=== PATIENT | male | born 1950 | race Caucasian/White ===

== ENCOUNTER 2016-08-24 18:21 | Inpatient (IN) | payer MEDICARE, BC, OTHER ==
[2016-08-24] MEDS ORDERED: HYDROmorphone 1 MG/ML 1 ML SYRINGE IVP STA ×2 (18:39→20:19)
[2016-08-24] MEDS ORDERED: DIPH,PERTUS(ACELL)TETVAC-LF 0.5 ML VIAL IM ONE (18:39)
[2016-08-24] MEDS ORDERED: RX INFO: IV CONTRAST WAS GIVEN 1 EACH MISC MISCELLANE PRN (18:39)
[2016-08-24] MEDS ORDERED: ONDANSETRON 4 MG/2 ML VIAL IVP STA (18:39)
[2016-08-24] MEDS ORDERED: SODIUM CHLORIDE 0.9% 500 ML IV STA (18:39)
--- NOTE | 2016-08-24 18:41 | ED ---
General Adult HPI - General Source: patient, RN notes reviewed Mode of arrival: wheelchair Limitations: no limitations <Linus Banks - Last Filed: 08/24/16 18:54> <Braxton Love - Last Filed: 08/24/16 19:58> - General Chief complaint: Trauma Stated complaint: patient bucked off horse and stepped on back leg Time Seen by Provider: 08/24/16 18:25 - History of Present Illness Initial comments: This is a 66-year-old male who presents emergency Department complaining of upper right back pain. Patient states he was thrown off his horse and stepped on by the horse in the right upper back. Patient states hurts to breathe but is not short of breath. Patient denies hitting his head or hurting his neck. Patient denies headache patient denies numbness weakness. Patient states she has full range of motion of his neck. Patient denies any chest pain. Patient denies abdominal pain patient denies nausea or vomiting. Patient states move all 4 extremities with full range of motion. Patient does state he has an abrasion to the back of his right leg however he is not sure how that got there. Patient denies having a tetanus recently. (Linus Banks) - Related Data Home Medications Medication Instructions Recorded Confirmed Aspirin 81 mg PO DAILY 08/24/16 08/24/16 Bisoprolol-Hctz 5-6.25 mg [Ziac 1 tab PO DAILY 08/24/16 08/24/16 5-6.25] [place]-3 Acid Ethyl Esters [Lovaza] 2 gm PO BID 08/24/16 08/24/16 Omeprazole 40 mg PO DAILY 08/24/16 08/24/16 Simvastatin [Zocor] 40 mg PO DAILY 08/24/16 08/24/16 Ubidecarenone [Co Q-10] 100 mg PO DAILY 08/24/16 08/24/16 amLODIPine BESYLATE/BENAZEPRIL 1 cap PO DAILY 08/24/16 08/24/16 [amLODIPine BESYLATE/BENAZEPRIL 10-20 mg] Allergies Allergy/AdvReac Type Severity Reaction Status Date / Time No Known Allergies Allergy Verified 08/24/16 19:40 Review of Systems ROS Other: All systems not noted in ROS Statement are negative. <Linus Banks - Last Filed: 08/24/16 18:54> ROS Other: All systems not noted in ROS Statement are negative. <Braxton Love - Last Filed: 08/24/16 19:58> ROS Statement: Those systems with pertinent positive or pertinent negative responses have been documented in the HPI. Past Medical History Past Medical History: GERD/Reflux, Hyperlipidemia, Hypertension History of Any Multi-Drug Resistant Organisms: None Reported Past Surgical History: No Surgical Hx Reported Past Psychological History: No Psychological Hx Reported Smoking Status: Current every day smoker Past Alcohol Use History: None Reported Past Drug Use History: None Reported <Linus Banks - Last Filed: 08/24/16 18:54> General Exam Limitations: no limitations <Linus Banks - Last Filed: 08/24/16 18:54> <Braxton Love - Last Filed: 08/24/16 19:58> - General Exam Comments Initial Comments: GENERAL: Patient is well-developed and well-nourished. Patient is nontoxic and well- hydrated and is in moderate distress. ENT: Neck is soft and supple. No significant lymphadenopathy is noted. Oropharynx is clear. Moist mucous membranes. Neck has full range of motion without eliciting any pain. EYES: The sclera were anicteric and conjunctiva were pink and moist. Extraocular movements were intact and pupils were equal round and reactive to light. Eyelids were unremarkable. PULMONARY: Unlabored respirations. Good breath sounds bilaterally. No audible rales rhonchi or wheezing was noted. CARDIOVASCULAR: There is a regular rate and rhythm without any murmurs gallops or rubs. ABDOMEN: Soft and nontender with normal bowel sounds. No palpable organomegaly was noted. There is no palpable pulsatile mass. SKIN: Patient has about an 8 cm x 2 cm long superficial abrasion to the posterior aspect of the right thigh. NEUROLOGIC: Patient is alert and oriented x3. Cranial nerves II through XII are grossly intact. Motor and sensory are also intact. Normal speech, volume and content. Symmetrical smile. MUSCULOSKELETAL: Normal extremities with adequate strength and full range of motion. No lower extremity swelling or edema. No calf tenderness. Patient does have some swelling and tenderness over the right scapula LYMPHATICS: No significant lymphadenopathy is noted PSYCHIATRIC: Normal psychiatric evaluation. (Linus Banks) Course <Linus Banks - Last Filed: 08/24/16 18:54> <Braxton Love - Last Filed: 08/24/16 19:58> Vital Signs 08/24/16 18:23 Temperature 96.8 F L Pulse Rate 82 Respiratory 24 Rate Blood Pressure 138/64 O2 Sat by Pulse 98 Oximetry - Reevaluation(s) Reevaluation #1: 08/24/16 19:56 I did reevaluate the patient after his return from imaging. Patient does demonstrate fractures of the ribs and right ribs 6 through 9. Evidence of pulmonary emphysema a small right pleural effusion or pleural thickening. No other acute findings. I did discuss case with the patient family Dr. Ayon did come the emergency department and examined the patient patient will be admitted for pain control and evaluation. Additionally Dr. Nichols has been notified as well as anesthesiology consulted for pain control. (Braxton Love) Medical Decision Making <Linus Banks - Last Filed: 08/24/16 18:54> - Lab Data Result diagrams: 08/24/16 18:44 08/24/16 18:44 <Braxton Love - Last Filed: 08/24/16 19:58> - Medical Decision Making EKG shows a sinus rhythm with a PAC at a rate of 77 bpm AL interval is 182 QRS is 78 QT interval is 392 QTC is 443. Patient's EKG shows no ST segment elevation or depression or T-wave abdomen is noted. Dr. Love will be taking over the care of this patient at 7 PM (Linus Banks) - Lab Data Lab Results 08/24/16 08/24/16 08/24/16 Range/Units 18:44 18:44 18:44 WBC 15.6 H (3.8-10.6) k/uL RBC 5.44 (4.30-5.90) m/uL Hgb 16.8 (13.0-17.5) gm/dL Hct 50.5 (39.0-53.0) % MCV 92.8 (80.0-100.0) fL MCH 30.9 (25.0-35.0) pg MCHC 33.3 (31.0-37.0) g/dL RDW 13.3 (11.5-15.5) % Plt Count 169 (150-450) k/uL Neutrophils % 86 % Lymphocytes % 8 % Monocytes % 4 % Eosinophils % 1 % Basophils % 0 % Neutrophils # 13.4 H (1.3-7.7) k/uL Lymphocytes # 1.2 (1.0-4.8) k/uL Monocytes # 0.6 (0-1.0) k/uL Eosinophils # 0.2 (0-0.7) k/uL Basophils # 0.0 (0-0.2) k/uL PT (9.0-12.0) sec INR (<1.1) APTT (22.0-30.0) sec Sodium 143 (137-145) mmol/L Potassium 4.7 (3.5-5.1) mmol/L Chloride 105 (98-107) mmol/L Carbon Dioxide 25 (22-30) mmol/L Anion Gap 13 mmol/L BUN 18 (9-20) mg/dL Creatinine 0.92 (0.66-1.25) mg/dL Est GFR (MDRD) Af Amer >60 (>60 ml/min/1.73 sqM) Est GFR (MDRD) Non-Af >60 (>60 ml/min/1.73 sqM) Glucose 107 H (74-99) mg/dL Calcium 9.8 (8.4-10.2) mg/dL Total Bilirubin 0.7 (0.2-1.3) mg/dL AST 60 H (17-59) U/L ALT 66 (21-72) U/L Alkaline Phosphatase 80 (38-126) U/L Total Creatine Kinase (55-170) U/L CK-MB (CK-2) (0.0-2.4) ng/mL CK-MB (CK-2) Rel Index Troponin I (0.000-0.034) ng/mL Total Protein 7.7 (6.3-8.2) g/dL Albumin 4.5 (3.5-5.0) g/dL Amylase 52 (30-110) U/L Lipase 62 (23-300) U/L Serum Alcohol <10 mg/dL Blood Type O Positive Blood Type Recheck No Antibody Screen NEGATIVE Spec Expiration Date 08/27/2016 - 234308/24/16 08/24/16 Range/Units 18:44 18:44 WBC (3.8-10.6) k/uL RBC (4.30-5.90) m/uL Hgb (13.0-17.5) gm/dL Hct (39.0-53.0) % MCV (80.0-100.0) fL MCH (25.0-35.0) pg MCHC (31.0-37.0) g/dL RDW (11.5-15.5) % Plt Count (150-450) k/uL Neutrophils % % Lymphocytes % % Monocytes % % Eosinophils % % Basophils % % Neutrophils # (1.3-7.7) k/uL Lymphocytes # (1.0-4.8) k/uL Monocytes # (0-1.0) k/uL Eosinophils # (0-0.7) k/uL Basophils # (0-0.2) k/uL PT 10.7 (9.0-12.0) sec INR 1.1 (<1.1) APTT 23.0 (22.0-30.0) sec Sodium (137-145) mmol/L Potassium (3.5-5.1) mmol/L Chloride (98-107) mmol/L Carbon Dioxide (22-30) mmol/L Anion Gap mmol/L BUN (9-20) mg/dL Creatinine (0.66-1.25) mg/dL Est GFR (MDRD) Af Amer (>60 ml/min/1.73 sqM) Est GFR (MDRD) Non-Af (>60 ml/min/1.73 sqM) Glucose (74-99) mg/dL Calcium (8.4-10.2) mg/dL Total Bilirubin (0.2-1.3) mg/dL AST (17-59) U/L ALT (21-72) U/L Alkaline Phosphatase (38-126) U/L Total Creatine Kinase 230 H (55-170) U/L CK-MB (CK-2) 5.7 H* (0.0-2.4) ng/mL CK-MB (CK-2) Rel Index 2.5 Troponin I <0.012 (0.000-0.034) ng/mL Total Protein (6.3-8.2) g/dL Albumin (3.5-5.0) g/dL Amylase (30-110) U/L Lipase (23-300) U/L Serum Alcohol mg/dL Blood Type Blood Type Recheck Antibody Screen Spec Expiration Date Disposition <Linus Banks - Last Filed: 08/24/16 18:54> <Braxton Love - Last Filed: 08/24/16 19:58> Clinical Impression: Chest wall trauma, Multiple rib fractures Disposition: ADMITTED IP TO THIS HOSP Condition: Stable
--- NOTE | 2016-08-24 18:58 | XR ---
EXAMINATION TYPE: XR pelvis AP view DATE OF EXAM: 08/24/2016 6:52 PM COMPARISON: NONE HISTORY: Bucked off a horse. Pain. TECHNIQUE: Single view FINDINGS: The pelvic ring is intact. Proximal femurs and hip joints are intact. Sacroiliac joints evangelina ear normal. IMPRESSION: Negative pelvis exam.
--- NOTE | 2016-08-24 19:00 | XR ---
EXAMINATION TYPE: XR chest 1V portable DATE OF EXAM: 08/24/2016 6:52 PM COMPARISON: NONE HISTORY: Bucked off a horse TECHNIQUE: Single frontal view of the chest is obtained. FINDINGS: Heart is normal. Lungs are clear. There is no sign of pleural effusion or pneumothorax. I see no rib fracture. There is atheromatous change in the thoracic aorta. There are no hilar masses. IMPRESSION: No active cardiopulmonary disease.
[2016-08-24 19:01] LABS: Basophils % (A) 0 %; CH 31.4; Eosinophils # (A) 0.2 k/uL (0-0.7); Eosinophils % (A) 1 %; HCT 50.5 % (39.0-53.0); HDW 2.52; HGB 16.8 gm/dL (13.0-17.5); Luc # (Auto) 0.18; Luc % (Auto) 1; Lymphocytes # (A) 1.2 k/uL (1.0-4.8); Lymphocytes % (A) 8 %; MCH 30.9 pg (25.0-35.0); MCHC 33.3 g/dL (31.0-37.0); MCV 92.8 fL (80.0-100.0); Mean Platelet Volume 8.2; Monocytes # (A) 0.6 k/uL (0-1.0); Monocytes % (A) 4 %; Neutrophils # (A) 13.4 k/uL (1.3-7.7); Neutrophils % (A) 86 %; RBC 5.44 m/uL (4.30-5.90); RDW 13.3 % (11.5-15.5); WBC 15.6 k/uL (3.8-10.6); WBC (Perox) 16.01
[2016-08-24 19:14] LABS: ALT 66 U/L (21-72); AST 60 U/L (17-59); Alcohol <10 mg/dL; Alkaline Phosphatase 80 U/L (38-126); Amylase 52 U/L (30-110); Anion Gap 13 mmol/L; Blood Urea Nitrogen 18 mg/dL (9-20); Calcium 9.8 mg/dL (8.4-10.2); Carbon Dioxide 25 mmol/L (22-30); Chloride 105 mmol/L (98-107); Glucose 107 mg/dL (74-99); Non-African American GFR(MDRD) >60 (>60 ml/min/1.73 sqM); Potassium 4.7 mmol/L (3.5-5.1); Sodium 143 mmol/L (137-145); Total Bilirubin 0.7 mg/dL (0.2-1.3); Total Protein 7.7 g/dL (6.3-8.2)
[2016-08-24 19:18] LABS: Creatine Kinase 230 U/L (55-170)
[2016-08-24 19:31] LABS: Troponin I <0.012 ng/mL (0.000-0.034)
--- NOTE | 2016-08-24 19:31 | CT ---
EXAMINATION TYPE: CT ChestAbdPelvis w con DATE OF EXAM: 08/24/2016 7:14 PM COMPARISON: NONE HISTORY: Pt fell off horse and stepped on by horse. Pain in between shoulder blades and middle back. CT DLP: 786.0 mGycm Automated exposure control for dose reduction was used. CONTRAST: CT scan of the chest, abdomen and pelvis is performed without Oral Contrast and with IV Contrast, pat ient injected with 100 mL of Omnipaque 300. FINDINGS: There is diffuse pulmonary emphysema. There is no pulmonary consolidation. There is a small right ple ural effusion. There is a small hiatal hernia. Heart size is normal. There is coronary artery calcifi cation. There is no sign of a pneumothorax. Liver spleen pancreas appear normal. The bile ducts are not dilated. Gallbladder is contracted. There is no adrenal mass. There are bilateral renal cortical cysts that measure up to 5 cm. There is no hy dronephrosis. There is no retroperitoneal adenopathy. There is some plaque in the lower abdominal aor ta. There are a few sigmoid diverticula. There is minimal stranding around the mid sigmoid colon. [place] endix appears normal. There is no ascites. I see no compression fracture in the thoracic and lumbar s pine. There is a possible 5 mm nonobstructing calculus in the left kidney. There is a thoracolumbar l evoscoliosis. There is a midthoracic dextroscoliosis. The pelvis appears intact. There are nondisplac ed fractures right posterior ribs involving the 6,.7,8 ,and 9. There are fractures of the lateral asp ect of the right fifth sixth and seventh ribs. There is localized subcutaneous emphysema over the rig ht lateral chest wall adjacent to lateral rib fractures. IMPRESSION: Pulmonary emphysema. Small right pleural effusion or pleural thickening. Atherosclerotic vascular disease. Bilateral renal cortical cysts. Nonobstructing left renal calculus. There are changes of minimal sigm oid diverticulitis. There are nondisplaced fractures of the posterior right ribs from 6-9. Mild subcutaneous emphysema. M ultiple lateral rib fractures. Spondylotic changes with scoliotic deformity.
[2016-08-24 19:33] LABS: Creatine Kinase MB 5.7 ng/mL (0.0-2.4)
[2016-08-24 19:45] LABS: INR 1.1 (<1.1); Prothrombin Time 10.7 sec (9.0-12.0)
[2016-08-24] MEDS ORDERED: NALOXONE 0.4 MG/ML 1 ML VIAL IV PRN (19:58)
--- NOTE | 2016-08-24 19:58 | P.GSHP ---
History of Present Illness H&P Date: 08/24/16 Patient is 66-year-old gentleman was on his horse and was thrown off. The patient was then coupled by a horse itself. I was able to walk on the did not have any loss of consciousness no nausea no vomiting. He does have a previous history of constipation. A few weeks ago he did have significant but remained in the left lower quadrant heading down towards the groin which has dissipated. He has chronic constipation. No symptoms his medication melena no history of any neurological deficits recently. He does have a Piment[place] of running on the left leg. Majority of the pain is along the back and the spine and on the right posterior side of the chest. He isn't complaining of any central chest pain in the front. No history of palpitations. No history of urinary complaints at this time. No hematuria. - Constitutional Constitutional: Reports chronic pain, Denies night sweats, Denies poor appetite , Denies sweats - EENT Eyes: denies blurred vision, denies pain Ears, nose, mouth and throat: Denies headache, Denies sore throat - Cardiovascular Cardiovascular: Reports chest pain, Denies claudication, Denies shortness of breath - Respiratory Respiratory: Reports dyspnea, Reports pain on inspiration, Denies cough, Denies excessive sputum, Denies hemoptysis - Gastrointestinal Comment: Patient had pain and left lower quadrant about a week ago Gastrointestinal: Reports abdominal pain, Denies diarrhea, Denies nausea, Denies vomiting - Genitourinary (Male) Genitourinary: Denies dysuria, Denies hematuria - Musculoskeletal Comment: She she had with pain running on the left leg Musculoskeletal: Denies myalgias - Integumentary Comment: Abrasion of left leg Integumentary: Denies pruritus, Denies rash - Neurological Neurological: Denies numbness, Denies weakness - Psychiatric Psychiatric: Denies anxiety, Denies depression - Endocrine Endocrine: Denies fatigue, Denies weight change Past Medical History Past Medical History: GERD/Reflux, Hyperlipidemia, Hypertension History of Any Multi-Drug Resistant Organisms: None Reported Past Surgical History: No Surgical Hx Reported Past Psychological History: No Psychological Hx Reported Smoking Status: Current every day smoker Past Alcohol Use History: None Reported Past Drug Use History: None Reported Medications and Allergies Home Medications Medication Instructions Recorded Confirmed Type Aspirin 81 mg PO DAILY 08/24/16 08/24/16 History Bisoprolol-Hctz 5-6.25 mg [Ziac 1 tab PO DAILY 08/24/16 08/24/16 History 5-6.25] [place]-3 Acid Ethyl Esters [Lovaza] 2 gm PO BID 08/24/16 08/24/16 History Omeprazole 40 mg PO DAILY 08/24/16 08/24/16 History Simvastatin [Zocor] 40 mg PO DAILY 08/24/16 08/24/16 History Ubidecarenone [Co Q-10] 100 mg PO DAILY 08/24/16 08/24/16 History amLODIPine BESYLATE/BENAZEPRIL 1 cap PO DAILY 08/24/16 08/24/16 History [amLODIPine BESYLATE/BENAZEPRIL 10-20 mg] Allergies Allergy/AdvReac Type Severity Reaction Status Date / Time No Known Allergies Allergy Verified 08/24/16 19:40 Surgical - Exam Vital Signs Temp Pulse Resp BP Pulse Ox 96.8 F L 82 24 138/64 98 08/24/16 18:23 08/24/16 18:23 08/24/16 18:23 08/24/16 18:23 08/24/16 18:23 - General well developed, moderate distress, moderate pain - Eyes pale - Respiratory having difficulty with breathing, reduced effort and excursion Moderate tenderness right posterior chest and back - Cardiovascular Rhythm: regular - Abdomen Abdomen: soft, non tender, no surgical scars, no wound, no masses, no guarding, no rigid, no rebound, no distended Hernia: none - Integumentary left medial knee has a small abrasion 3 cm across - Neurologic h/o sciatica , left sided no disoriented, no combative - Psychiatric oriented to time, oriented to person, oriented to place, speech is normal, memory intact Results - Labs 08/24/16 18:44 08/24/16 18:44 Abnormal Lab Results - Last 24 Hours (Table) 08/24/16 08/24/16 08/24/16 Range/Units 18:44 18:44 18:44 WBC 15.6 H (3.8-10.6) k/uL Neutrophils # 13.4 H (1.3-7.7) k/uL Glucose 107 H (74-99) mg/dL AST 60 H (17-59) U/L Total Creatine Kinase 230 H (55-170) U/L CK-MB (CK-2) 5.7 H* (0.0-2.4) ng/mL Diabetes panel 08/24/16 Range/Units 18:44 Sodium 143 (137-145) mmol/L Potassium 4.7 (3.5-5.1) mmol/L Chloride 105 (98-107) mmol/L Carbon Dioxide 25 (22-30) mmol/L BUN 18 (9-20) mg/dL Creatinine 0.92 (0.66-1.25) mg/dL Glucose 107 H (74-99) mg/dL Calcium 9.8 (8.4-10.2) mg/dL AST 60 H (17-59) U/L ALT 66 (21-72) U/L Alkaline Phosphatase 80 (38-126) U/L Total Protein 7.7 (6.3-8.2) g/dL Albumin 4.5 (3.5-5.0) g/dL Calcium panel 08/24/16 Range/Units 18:44 Calcium 9.8 (8.4-10.2) mg/dL Albumin 4.5 (3.5-5.0) g/dL Pituitary panel 08/24/16 Range/Units 18:44 Sodium 143 (137-145) mmol/L Potassium 4.7 (3.5-5.1) mmol/L Chloride 105 (98-107) mmol/L Carbon Dioxide 25 (22-30) mmol/L BUN 18 (9-20) mg/dL Creatinine 0.92 (0.66-1.25) mg/dL Glucose 107 H (74-99) mg/dL Calcium 9.8 (8.4-10.2) mg/dL Adrenal panel 08/24/16 Range/Units 18:44 Sodium 143 (137-145) mmol/L Potassium 4.7 (3.5-5.1) mmol/L Chloride 105 (98-107) mmol/L Carbon Dioxide 25 (22-30) mmol/L BUN 18 (9-20) mg/dL Creatinine 0.92 (0.66-1.25) mg/dL Glucose 107 H (74-99) mg/dL Calcium 9.8 (8.4-10.2) mg/dL Total Bilirubin 0.7 (0.2-1.3) mg/dL AST 60 H (17-59) U/L ALT 66 (21-72) U/L Alkaline Phosphatase 80 (38-126) U/L Total Protein 7.7 (6.3-8.2) g/dL Albumin 4.5 (3.5-5.0) g/dL - Imaging CT scan - abdomen: report reviewed, image reviewed CT scan - chest: report reviewed (Multiple rib fractures), image reviewed Assessment and Plan (1) Tobacco dependence Status: Acute (2) Ribs, multiple fractures Status: Acute (3) Diverticulitis large intestine w/o perforation or abscess w/o bleeding Status: Acute (4) Atherosclerosis of abdominal aorta Status: Acute Plan: Patient has significant amount of pain due to the rib fractures. Is having difficulty breathing at this time. On this nausea and vomiting. A computed tomography scan of the chest did not reveal any pneumothorax. He does however have multiple rib fractures. I've consulted anesthesia and placement of an epidural for pain control. I will also consult pulmonology due to his significant emphysema issues. The patient has significant atherosclerotic issues involving the descending aorta. He does not have any current symptoms but have had a detailed discussion with him to quit that because that may be contributing to his progressive atherosclerotic changes in his aorta. The patient also is a history of having left lower quadrant pain approximately a week ago. He has a chronic history of constipation as well. He's had previous [address] Olivia which would been unremarkable in terms of polyps. He however has significant amounts sigmoid diverticulosis. Due to the fact that he had that pain his white count is elevated and the current CT has been read as diverticulitis I will place him on Unasyn 3 g IV twice a day for that. The patient may follow up with his usual surgeon was discharged from this current trauma admission. The patient's current condition was discussed with Dr. Nichols will be seeing the patient in the morning for medical menagement Time with Patient: Greater than 30
--- NOTE | 2016-08-24 20:23 | P.PCN ---
Date of Procedure: 08/24/16 Procedure(s) Performed: Procedure= thoracic epidural catheter placement . Preoperative diagnosis= chest wall pain secondary to multiple rib fractures. Postoperative diagnoses= same as preop diagnosis. Condition= stable. Complications= none. Anesthesia= Dilaudid 1 mg IV and local lidocaine 1% 3 mL. Description of the procedure= this is 66 years old male, came to the emergency room at [facility] and he was diagnosed with multiple rib fractures right-sided T5 to T9, patient was complaining of severe chest wall pain, and the trauma surgeon recommended thoracic epidural catheter placement for pain control, and I discussed this option with the patient and his and they agreed with the procedure, risks and benefits and alternatives discussed with the patient and he signed the consent, patient sitting position the back prepped with Betadine 3, sterile technique, at T6 7 level interlaminar space, local infiltration of the skin and subcu interstitial, lidocaine 1% 3 mL, then 18-gauge Touhy needle, advanced slowly under was positive loss of resistance to saline, no heme and no CSF, and no paresthesia, was threaded easily, and taped at 10 cm, the test dose was negative, for any change in heart rate, and patient had no motor deficits after the test does,, then the catheter secured at 10 cm, and patient will be started on continuous infusion of fentanyl and bupivacaine
[2016-08-24] MEDS ORDERED: AMPICILLIN-SULBACTAM 3 GM in SODIUM CHLORIDE 0.9% 100 ML IVPB SCH (20:45)
[2016-08-24 21:12] VITALS: BMI 28.1
[2016-08-24] MEDS: SODIUM CHLORIDE 0.9% 1,000 ML IV SCH (21:29)
[2016-08-24] MEDS: AMPICILLIN-SULBACTAM 3 GM in SODIUM CHLORIDE 0.9% 100 ML IVPB SCH (21:30)
[2016-08-24 22:02] LABS: Appearance,Urine Clear (Clear); Bilirubin,Urine Negative (Negative); Glucose,Urine (UA) Negative (Negative); Ketones,Urine Negative (Negative); Leukocyte Esterase,Urine Negative (Negative); Mucus,Urine Occasional /hpf; Nitrite,Urine Negative (Negative); PH, Urine 6.5 (5.0-8.0); Particle Count 2110; Protein,Urine 1+ (Negative); RBC,Urine 3 /hpf (0-5); UA Billing (MACRO vs. MICRO) MICRO; WBC,Urine <1 /hpf (0-5)
[2016-08-24 22:11] LABS: Specific Gravity,Urine >1.050 (1.001-1.035)
[2016-08-24] MEDS: BUPIVACAINE (PF) 0.5% 31.3 ML, fentaNYL (PF) 625 MCG in SODIUM CHLORIDE 0.9% 206 ML EPIDURAL PRN (22:25)
[2016-08-25 06:52] LABS: Basophils % (A) 0 %; CH 31.2; Eosinophils # (A) 0.2 k/uL (0-0.7); Eosinophils % (A) 2 %; HCT 42.5 % (39.0-53.0); HDW 2.46; Luc # (Auto) 0.23; Luc % (Auto) 2; Lymphocytes # (A) 1.6 k/uL (1.0-4.8); Lymphocytes % (A) 15 %; MCH 30.7 pg (25.0-35.0); MCHC 32.4 g/dL (31.0-37.0); MCV 94.9 fL (80.0-100.0); Mean Platelet Volume 8.6; Monocytes # (A) 0.6 k/uL (0-1.0); Monocytes % (A) 6 %; Neutrophils % (A) 75 %; RBC 4.49 m/uL (4.30-5.90); RDW 13.4 % (11.5-15.5); WBC 10.6 k/uL (3.8-10.6); WBC (Perox) 11.35
[2016-08-25 06:59] LABS: HGB 13.8 gm/dL (13.0-17.5)
[2016-08-25 07:09] LABS: ALT 56 U/L (21-72); AST 42 U/L (17-59); Alkaline Phosphatase 61 U/L (38-126); Anion Gap 11 mmol/L; Blood Urea Nitrogen 17 mg/dL (9-20); Calcium 8.9 mg/dL (8.4-10.2); Carbon Dioxide 26 mmol/L (22-30); Chloride 105 mmol/L (98-107); Glucose 102 mg/dL (74-99); Non-African American GFR(MDRD) >60 (>60 ml/min/1.73 sqM); Potassium 4.2 mmol/L (3.5-5.1); Sodium 142 mmol/L (137-145); Total Bilirubin 0.8 mg/dL (0.2-1.3); Total Protein 6.4 g/dL (6.3-8.2)
[2016-08-25] MEDS: AMPICILLIN-SULBACTAM 3 GM in SODIUM CHLORIDE 0.9% 100 ML IVPB SCH (07:34)
--- NOTE | 2016-08-25 07:59 | XR ---
EXAMINATION TYPE: XR chest 1V DATE OF EXAM: 08/25/2016 7:18 AM HISTORY: Shortness of breath. COMPARISON: August 24, 2016 TECHNIQUE: Single view of the chest is submitted. FINDINGS: Demonstrated are scattered senescent parenchymal change. There is right lower lobe infiltrate. Correlate for pneumonia. The heart is stable. Hilar and mediastinal structures are within normal limits. Degenerative changes are seen of the dorsal spine. IMPRESSION: 1. There is right lower lobe infiltrate. Correlate for pneumonia.
--- NOTE | 2016-08-25 11:27 | P.PN ---
Subjective Principal diagnosis: Trauma with multiple rib fractures Patient is a 66-year-old male with multiple rib fractures from a horse trampling. Continues to have significant amount of pain he is using incentive spirometer only to about 101,000 the target for him would be around 2500. His been evaluated by physical therapy and occupational therapy. He has no complaints no nausea no vomiting is urinated twice.. He complains that on taking deep breaths and coughing a significant amount of pain. He's not had a bowel movement yet. Objective - Vital Signs Vital signs: Vital Signs Temp 97.6 F 08/25/16 07:00 Pulse 91 08/25/16 07:00 Resp 20 08/25/16 07:00 BP 103/66 08/25/16 07:00 Pulse Ox 94 L 08/25/16 07:40 Intake & Output 08/24/16 08/25/16 08/25/16 18:59 06:59 18:59 Intake Total 118.7 480 Output Total 450 Balance -331.3 480 Weight 83.915 kg Intake: IV 100 Ampicillin-Sulbactam 3 gm 100 In Sodium Chloride 0.9% 100 ml @ 100 mls/hr IVPB Q12H [facility] Rx#:[id number] Intake, IV Titration 18.7 Amount Bupivacaine (Pf) 0.5% 31. 18.7 3 ml fentaNYL (PF) 625 mcg In Sodium Chloride 0. 9% 206 ml @ Per Protocol EPIDURAL .Q0M PRN Rx#: [id number] Oral 480 Output: Urine 450 Other: Voiding Method Urinal - Constitutional General appearance: Present: cooperative - EENT Eyes: Present: PERRLA - Respiratory Respiratory: right: diminished, rhonchi - Cardiovascular Rhythm: regular - Gastrointestinal General gastrointestinal: Present: soft - Integumentary Integumentary: Absent: calor, cellulitis, cyanotic - Neurologic Neurologic: Present: CNII-XII intact. Absent: focal deficits - Psychiatric Psychiatric: Present: A&O x's 3, appropriate affect, intact judgment & insight - Allied health notes Allied health notes reviewed: PT - Labs CBC & Chem 7: 08/25/16 06:30 08/25/16 06:30 Labs: Abnormal Lab Results - Last 24 Hours (Table) 08/24/16 08/24/16 08/25/16 Range/Units 21:45 21:45 06:30 Plt Count 136 L (150-450) k/uL Neutrophils # 8.0 H (1.3-7.7) k/uL Glucose (74-99) mg/dL Ur Specific [place] >1.050 H (1.001-1.035) Urine Protein 1+ H (Negative) Urine Mucus Occasional H (None) /hpf Urine Opiates Screen Detected H (NotDetected) 08/25/16 Range/Units 06:30 Plt Count (150-450) k/uL Neutrophils # (1.3-7.7) k/uL Glucose 102 H (74-99) mg/dL Ur Specific [place] (1.001-1.035) Urine Protein (Negative) Urine Mucus (None) /hpf Urine Opiates Screen (NotDetected) - Imaging and Cardiology Chest x-ray: report reviewed, image reviewed Assessment and Plan (1) Tobacco dependence Status: Acute (2) Ribs, multiple fractures Status: Acute (3) Diverticulitis large intestine w/o perforation or abscess w/o bleeding Status: Acute (4) Atherosclerosis of abdominal aorta Status: Acute Plan: The patient is doing adequate breathing at this time I strongly encourage increased using of the incentive spirometer. I will also increase the bupivacaine rate and his epidural so that his pain control is better. I await pulmonology consultation for this patient. Patient will be given appropriate thromboprophylaxis as well. Physical therapy was noted patient is cooperative and ambulating with some pain. We'll continue current management further recommendations to follow.
[2016-08-25] MEDS: AMPICILLIN-SULBACTAM 1.5 GM in SODIUM CHLORIDE 0.9% 50 ML IVPB SCH ×2 (11:42→17:07)
[2016-08-25] MEDS ORDERED: IPRATROPIUM-ALBUTEROL 3 ML NEB INHALATION PRN (12:27)
--- NOTE | 2016-08-25 12:27 | P.CONS ---
History of Present Illness - Reason for Consult Consult date: 08/25/16 Medical management hypertension - Chief Complaint Trampling - History of Present Illness Thaddeus is a 66-year-old white male well-known to me. He has a history of hypertension, hyperlipidemia, and reflux. 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 He was riding his horse at the [employer], when his horse became spooked and bucked him. He was then trampled by the horse several times. He had no loss of consciousness. He is transported to [facility] and admitted to the trauma service, Dr. Ayon duplication specialist. I spoke with Dr. Ayon personally while patient was in the ER. He has no major medical concerns at this time. His major complaint is chest pain. In the emergency room A was found to have multiple rib fractures. There is a laceration consistent with horseshoe to his right thoracic spine. He currently denies any significant shortness of breath. Indicates he is a hard time taking a deep breath due to the pain. He denies any hematochezia melena. He has been seen by pain services and has an incentive spirometer at bedside. Review of Systems All systems: negative Cardiovascular: Reports as per HPI, Reports chest pain Respiratory: Reports cough, Reports pain on inspiration Past Medical History Past Medical History: GERD/Reflux, Hyperlipidemia, Hypertension History of Any Multi-Drug Resistant Organisms: None Reported Past Surgical History: Orthopedic Surgery, Tonsillectomy Additional Past Surgical History / Comment(s): right ankle Past Anesthesia/Blood Transfusion Reactions: No Reported Reaction Past Psychological History: No Psychological Hx Reported Smoking Status: Current every day smoker Past Alcohol Use History: None Reported Past Drug Use History: None Reported - Past Family History Mother Family Medical History: Coronary Artery Disease (CAD) Father Family Medical History: Cancer Medications and Allergies Home Medications Medication Instructions Recorded Confirmed Type Aspirin 81 mg PO DAILY 08/24/16 08/24/16 History Bisoprolol-Hctz 5-6.25 mg [Ziac 1 tab PO DAILY 08/24/16 08/24/16 History 5-6.25] [place]-3 Acid Ethyl Esters [Lovaza] 2 gm PO BID 08/24/16 08/24/16 History Omeprazole 40 mg PO DAILY 08/24/16 08/24/16 History Simvastatin [Zocor] 40 mg PO DAILY 08/24/16 08/24/16 History Ubidecarenone [Co Q-10] 100 mg PO DAILY 08/24/16 08/24/16 History amLODIPine BESYLATE/BENAZEPRIL 1 cap PO DAILY 08/24/16 08/24/16 History [amLODIPine BESYLATE/BENAZEPRIL 10-20 mg] Allergies Allergy/AdvReac Type Severity Reaction Status Date / Time No Known Allergies Allergy Verified 08/24/16 21:49 Physical Exam Vitals: Vital Signs Temp Pulse Pulse Resp BP BP Pulse Ox 08/25/16 07:40 94 L 08/25/16 07:00 97.6 F 91 20 103/66 92 L 08/25/16 04:43 97.6 F 73 16 109/60 94 L 08/25/16 01:04 97.0 F L 70 16 104/58 95 08/25/16 00:08 96 08/24/16 22:54 69 106/59 97 08/24/16 22:47 63 100/57 96 08/24/16 22:41 60 93/52 95 08/24/16 22:37 68 100/58 97 08/24/16 22:33 77 103/57 94 L 08/24/16 21:24 97.1 F L 76 16 109/68 96 08/24/16 20:13 78 14 119/88 96 Intake and Output 08/24/16 08/25/16 08/25/16 22:59 06:59 14:59 Intake Total 118.7 480 Output Total 200 250 Balance -200 -131.3 480 Intake: IV 100 Ampicillin-Sulbactam 3 gm 100 In Sodium Chloride 0.9% 100 ml @ 100 mls/hr IVPB Q12H [facility] Rx#:[id number] Intake, IV Titration 18.7 Amount Bupivacaine (Pf) 0.5% 31. 18.7 3 ml fentaNYL (PF) 625 mcg In Sodium Chloride 0. 9% 206 ml @ Per Protocol EPIDURAL .Q0M PRN Rx#: [id number] Oral 480 Output: Urine 200 250 Other: Voiding Method Urinal Weight 83.915 kg GENERAL: Fatigued, well-nourished and in moderate distress with motion and deep breaths HEAD: Atraumatic, normocephalic. EYES: Pupils equal round and reactive to light, extraocular movements intact, sclera anicteric, conjunctiva are normal. ENT:nares patent, oropharynx clear without exudates. Moist mucous membranes. NECK: Normal range of motion, supple without lymphadenopathy or JVD, no thyromegaly LUNGS: Breath sounds coarse to auscultation bilaterally and equal. Occasional wheezes no rales or rhonchi. HEART: Regular rate and rhythm without murmurs, rubs or gallops.S1S2 Normal ABDOMEN: Soft, nontender, normoactive bowel sounds. No guarding, no rebound. No masses appreciated. EXTREMITIES: Normal range of motion, no pitting or edema. No clubbing or cyanosis. NEUROLOGICAL: Cranial nerves II through XII grossly intact. Normal speech, normal gait. PSYCH: Normal mood, normal affect. SKIN: Warm, Dry, normal turgor, no rashes. As previously stated in the HPI, there is a U-shaped laceration to his right thoracic spine, consistent with horseshoe, approximately 2 mm in depth. There is an abrasion to his right posterior thigh. Results CBC & Chem 7: 08/25/16 06:30 08/25/16 06:30 Labs: Abnormal Lab Results - Last 24 Hours (Table) 08/24/16 08/24/16 08/25/16 Range/Units 21:45 21:45 06:30 Plt Count 136 L (150-450) k/uL Neutrophils # 8.0 H (1.3-7.7) k/uL Glucose (74-99) mg/dL Ur Specific [place] >1.050 H (1.001-1.035) Urine Protein 1+ H (Negative) Urine Mucus Occasional H (None) /hpf Urine Opiates Screen Detected H (NotDetected) 08/25/16 Range/Units 06:30 Plt Count (150-450) k/uL Neutrophils # (1.3-7.7) k/uL Glucose 102 H (74-99) mg/dL Ur Specific [place] (1.001-1.035) Urine Protein (Negative) Urine Mucus (None) /hpf Urine Opiates Screen (NotDetected) Chest x-ray: report reviewed Assessment and Plan Plan: Multiple rib fractures due to trauma: He is currently on the trauma service under Dr. Ayon's care. They're using epidural to help control his pain. COPD with abnormal chest x-ray: Pulmonology has been consulted, he is currently on Unasyn, I will add DuAdalid mayrafts, guaifenesin at this time, he has an incentive spirometer to bedside, Hypertension: His blood pressure is well controlled, we will hold his amlodipine and Ziac at this time. GERD/GI prophylaxis: I will restart his pantoprazole. hyperlipidemia: Due to his muscle trauma, We will hold his simvastatin and omega -3 fatty acids at this time. DVT prophylaxis: He is currently on Lovenox Thank you very much for allowing us to participate in this patient's care, we will reevaluate him in next 24 hours.
[2016-08-25] MEDS: guaiFENesin 600 MG TABLET.ER PO SCH ×2 (13:18→23:41)
[2016-08-25] MEDS: PANTOPRAZOLE 40 MG TABLET PO SCH (13:18)
[2016-08-25] MEDS ORDERED: BACITRACIN 500 UNIT/GM OINT 28.4 GM TUBE TOPICAL ONE (13:20)
--- NOTE | 2016-08-25 14:05 | P.CNPUL ---
History of Present Illness Consult date: 08/25/16 Reason for consult: chest pain History of present illness: 66-year-old male patient with known history of COPD came into the hospital after being thrown off a horse. The patient was riding a horse in an indoor location where he was thrown off and he then got at and coupled with a horse. No reported loss of consciousness. No headaches. No seizure activity. He did suffer right chest trauma and right-sided fractures and he was having significant chest wall pain at time of admission. He was further investigated by x-ray imaging and was found to have right-sided rib fractures. The CAT scan of the chest also showed evidence of emphysema with a very tiny right-sided pleural effusion otherwise no other abnormalities were noted. The patient was having considerable amount of pain and for that reason it easy was consulted and the patient had a thoracic epidural catheter insertion for pain control. Currently his pain is around 6 out of 10 in severity. He also has had issues with constipation and a CAT scan of the abdomen showed questionable changes of diverticulitis and for that reason the patient was started on antibiotics and general surgeries on the case. No fever or chills. No nausea or vomiting. He is tolerating diet at this point. No other complaints otherwise for now. Review of Systems As above Past Medical History Past Medical History: GERD/Reflux, Hyperlipidemia, Hypertension Additional Past Medical History / Comment(s): Hypertension, COPD, hyperlipidemia , GERD, diverticulosis, History of Any Multi-Drug Resistant Organisms: None Reported Past Surgical History: Orthopedic Surgery, Tonsillectomy Additional Past Surgical History / Comment(s): right ankle surgery Past Anesthesia/Blood Transfusion Reactions: No Reported Reaction Past Psychological History: No Psychological Hx Reported Smoking Status: Current every day smoker (Patient smokes a pack of cigarette signed databases and carries more than [id number] smoking history.) Past Alcohol Use History: None Reported Past Drug Use History: None Reported - Past Family History Mother Family Medical History: Coronary Artery Disease (CAD) Father Family Medical History: Cancer Medications and Allergies Home Medications Medication Instructions Recorded Confirmed Type Aspirin 81 mg PO DAILY 08/24/16 08/24/16 History Bisoprolol-Hctz 5-6.25 mg [Ziac 1 tab PO DAILY 08/24/16 08/24/16 History 5-6.25] [place]-3 Acid Ethyl Esters [Lovaza] 2 gm PO BID 08/24/16 08/24/16 History Omeprazole 40 mg PO DAILY 08/24/16 08/24/16 History Simvastatin [Zocor] 40 mg PO DAILY 08/24/16 08/24/16 History Ubidecarenone [Co Q-10] 100 mg PO DAILY 08/24/16 08/24/16 History amLODIPine BESYLATE/BENAZEPRIL 1 cap PO DAILY 08/24/16 08/24/16 History [amLODIPine BESYLATE/BENAZEPRIL 10-20 mg] Allergies Allergy/AdvReac Type Severity Reaction Status Date / Time No Known Allergies Allergy Verified 08/24/16 21:49 Physical Exam Vitals: Vital Signs Temp Pulse Pulse Resp BP BP Pulse Ox 08/25/16 13:52 98.2 F 78 17 123/75 92 L 08/25/16 07:40 94 L 08/25/16 07:00 97.6 F 91 20 103/66 92 L 08/25/16 04:43 97.6 F 73 16 109/60 94 L 08/25/16 01:04 97.0 F L 70 16 104/58 95 08/25/16 00:08 96 08/24/16 22:54 69 106/59 97 08/24/16 22:47 63 100/57 96 08/24/16 22:41 60 93/52 95 08/24/16 22:37 68 100/58 97 08/24/16 22:33 77 103/57 94 L 08/24/16 21:24 97.1 F L 76 16 109/68 96 08/24/16 20:13 78 14 119/88 96 Intake and Output 08/24/16 08/25/16 08/25/16 22:59 06:59 14:59 Intake Total 118.7 1280 Output Total 200 250 Balance -200 -131.3 1280 Intake: IV 100 200 Ampicillin-Sulbactam 3 gm 100 200 In Sodium Chloride 0.9% 100 ml @ 100 mls/hr IVPB Q12H [facility] Rx#:[id number] Intake, IV Titration 18.7 120 Amount Bupivacaine (Pf) 0.5% 31. 18.7 3 ml fentaNYL (PF) 625 mcg In Sodium Chloride 0. 9% 206 ml @ Per Protocol EPIDURAL .Q0M [facility]N Rx#: [id number] Sodium Chloride 0.9% 500 120 ml @ 999 mls/hr IV .Q31M [facility] Rx#:[id number] Oral 960 Output: Urine 200 250 Other: Voiding Method Urinal # Voids 1 Weight 83.915 kg Head exam was generally normal. There was no scleral icterus or corneal arcus. Mucous membranes were moist.Neck was supple and without jugular venous distension, thyromegaly, or carotid bruits. Carotids were easily palpable bilaterally. There was no adenopathy. Lung sounds are diminished specially in the lung bases bilaterally along with some few scattered rhonchi and external wheezes. Chest wall was sore to palpation especially on the right. Epidural catheter is present in the upper thoracic spine.Cardiac exam revealed the PMI to be normally situated and sized. The rhythm was regular and no extrasystoles were noted during several minutes of auscultation. The first and second heart sounds were normal and physiologic splitting of the second heart sound was noted. There were no murmurs, rubs, clicks, or gallops.Abdominal exam revealed normal bowel sounds. The abdomen was soft, non-tender, and without masses, organomegaly, or appreciable enlargement of the abdominal aorta.Examination of the extremities revealed easily palpable radial, femoral and pedal pulses. There was no cyanosis, clubbing or edema. Results - Laboratory Findings CBC and BMP: 08/25/16 06:30 08/25/16 06:30 PT/INR, D-dimer PT 10.7 sec (9.0-12.0) 08/24/16 18:44 INR 1.1 (<1.1) 08/24/16 18:44 Abnormal lab findings: Abnormal Labs 08/24/16 08/24/16 08/25/16 21:45 21:45 06:30 Plt Count 136 L Neutrophils # 8.0 H Glucose Ur Specific [place] >1.050 H Urine Protein 1+ H Urine Mucus Occasional H Urine Opiates Screen Detected H 08/25/16 06:30 Plt Count Neutrophils # Glucose 102 H Ur Specific [place] Urine Protein Urine Mucus Urine Opiates Screen - Diagnostic Findings Chest x-ray: image reviewed Assessment and Plan Plan: Assessment 1 right-sided rib fractures, traumatic in nature with secondary muscular skeletal chest wall pain. The patient had a thoracic epidural catheter insertion for pain control and the patient is doing better in terms of his overall pain control for now. 2 small right-sided pleural effusion 3 COPD with centrilobular emphysema based on the CAT scan findings 4 nicotine addiction/smoking 5 diverticulosis with abdominal pain and suspected diverticulitis count and antibiotics and general surgeries on the case 6 hypertension 7 hyperlipidemia 8 fall out of a hoarse/fall related injury Plan Continue pain control. Continues incentive spirometer. Repeat chest x-ray in the morning. Antibiotics for suspected diverticulitis. Gen. surgeries on the case. We'll continue to follow make further recommendations based on his progress. Early mobility and ablation is recommended for this patient. Lovenox for DVT prophylaxis.
[2016-08-25] MEDS: IPRATROPIUM-ALBUTEROL 3 ML NEB INHALATION SCH ×2 (16:02→22:00)
[2016-08-25] MEDS: NICOTINE 21MG/24HR PATCH TRANSDERM SCH (16:43)
--- NOTE | 2016-08-25 19:29 | P.PN ---
Progress Note - Text 66 years old male, with a history of right side draped fracture, thoracic epidural catheter placed for pain control, currently patient on combination infusion of fentanyl/bupivacaine at 8 mL per hour, the epidural site okay, patient had no motor deficit, vital signs stable, patient pain well controlled at rest but increases with deep breathing and with coughing, Assessment and plan= antecolic pain controlled, with continual epidural infusion at 8 mL per hour, but I will add Dilaudid 0.5 mg IV for breakthrough pain, and to help with deep breathing and coughing
[2016-08-25] MEDS: SODIUM CHLORIDE 0.9% 1,000 ML IV SCH (23:41)
[2016-08-26] MEDS: AMPICILLIN-SULBACTAM 1.5 GM in SODIUM CHLORIDE 0.9% 50 ML IVPB SCH ×6 (00:53→23:55)
[2016-08-26] MEDS: BUPIVACAINE (PF) 0.5% 31.3 ML, fentaNYL (PF) 625 MCG in SODIUM CHLORIDE 0.9% 206 ML EPIDURAL PRN (01:34)
[2016-08-26 06:34] LABS: Basophils % (A) 0 %; CHCM 32.5; Eosinophils # (A) 0.2 k/uL (0-0.7); Eosinophils % (A) 2 %; HCT 43.4 % (39.0-53.0); HDW 2.47; Luc # (Auto) 0.25; Luc % (Auto) 3; Lymphocytes # (A) 2.1 k/uL (1.0-4.8); Lymphocytes % (A) 25 %; MCHC 32.4 g/dL (31.0-37.0); MCV 95.8 fL (80.0-100.0); Mean Platelet Volume 8.3; Monocytes # (A) 0.6 k/uL (0-1.0); Monocytes % (A) 7 %; Neutrophils # (A) 5.4 k/uL (1.3-7.7); Neutrophils % (A) 63 %; RBC 4.53 m/uL (4.30-5.90); RDW 13.3 % (11.5-15.5); WBC 8.5 k/uL (3.8-10.6); WBC (Perox) 8.48
[2016-08-26 06:56] LABS: ALT 52 U/L (21-72); AST 30 U/L (17-59); Alkaline Phosphatase 57 U/L (38-126); Anion Gap 10 mmol/L; Blood Urea Nitrogen 9 mg/dL (9-20); Carbon Dioxide 26 mmol/L (22-30); Chloride 106 mmol/L (98-107); Glucose 95 mg/dL (74-99); Non-African American GFR(MDRD) >60 (>60 ml/min/1.73 sqM); Potassium 4.1 mmol/L (3.5-5.1); Sodium 142 mmol/L (137-145); Total Bilirubin 0.9 mg/dL (0.2-1.3)
[2016-08-26] MEDS: PANTOPRAZOLE 40 MG TABLET PO SCH (07:21)
[2016-08-26] MEDS: guaiFENesin 600 MG TABLET.ER PO SCH ×2 (07:21→19:53)
[2016-08-26] MEDS: NICOTINE 21MG/24HR PATCH TRANSDERM SCH (07:21)
[2016-08-26] MEDS: ENOXAPARIN 40 MG/0.4 ML SYRINGE SQ SCH (07:21)
[2016-08-26] MEDS: IPRATROPIUM-ALBUTEROL 3 ML NEB INHALATION SCH ×4 (08:08→19:22)
[2016-08-26] MEDS ORDERED: BISACODYL 5 MG TABLET.DR PO PRN (08:29)
--- NOTE | 2016-08-26 08:43 | XR ---
EXAMINATION TYPE: XR chest 1V DATE OF EXAM: 08/26/2016 8:34 AM HISTORY: Shortness of breath. COMPARISON: 08/25/2016 TECHNIQUE: Single view of the chest is submitted. FINDINGS: Demonstrated are scattered senescent parenchymal change. Basilar densities may reflect infiltrate and/or atelectasis. The heart is stable. Hilar and mediastinal structures are within normal limits. Degenerative changes are seen of the dorsal spine. IMPRESSION: 1. Basilar densities may reflect infiltrate and/or atelectasis.
[2016-08-26] MEDS: HYDROmorphone 1 MG/ML 1 ML SYRINGE IVP PRN ×2 (10:32→19:46)
--- NOTE | 2016-08-26 10:44 | P.PN ---
Progress Note - Text 66 years old male with multiple fractures, thoracic epidural catheter placed for pain control, patient currently on continuous infusion of fentanyl/ bupivacaine at 8 mL per hour, and he is getting Dilaudid 0.5 mg IV for breakthrough pain, vital signs stable, chest x-ray showed patient had infiltration/atelecta, the epidural site showed no sign of infection or erythema , patient had no motor deficits, pain well controlled with the epidural infusion , Assessment and plan= good pain control continue thoracic epidural infusion at 8 mL per hour, continue Dilaudid 0.5 mg IV for breakthrough pain, encouraged patient to do incentive spirometry
--- NOTE | 2016-08-26 14:51 | P.PN ---
Subjective Principal diagnosis: Trauma with multiple rib fractures Patient is a 66-year-old male with multiple rib fractures from a horse trampling. Continues to have of pain he is using incentive spirometer only to about 1500. the target for him would be around 2500. No nausea or vomiiting. The epidural has been adjusted Objective - Vital Signs Vital signs: Vital Signs Temp 97.6 F 08/26/16 14:38 Pulse 101 H 08/26/16 14:38 Resp 17 08/26/16 14:38 BP 131/75 08/26/16 14:38 Pulse Ox 92 L 08/26/16 14:38 Intake & Output 08/25/16 08/26/16 08/26/16 18:59 06:59 18:59 Intake Total 1880 222.544 0299 Output Total 1460 Balance 1880 -3490.594 8387 Intake: IV 200 240 Ampicillin-Sulbactam 3 gm 200 In Sodium Chloride 0.9% 100 ml @ 100 mls/hr IVPB Q12H [facility] Rx#:[id number] Sodium Chloride 0.9% 1, 240 000 ml @ 20 mls/hr IV . Q24H [facility] Rx#:[id number] Intake, IV Titration 120 168.233 Amount Bupivacaine (Pf) 0.5% 31. 168.233 3 ml fentaNYL (PF) 625 mcg In Sodium Chloride 0. 9% 206 ml @ Per Protocol EPIDURAL .Q0M [facility] Rx#: [id number] Sodium Chloride 0.9% 500 120 ml @ 999 mls/hr IV .Q31M [facility] Rx#:[id number] Oral 1560 1080 Output: Urine 1460 Other: Voiding Method Urinal # Voids 1 2 2 - Constitutional General appearance: Present: cooperative - EENT Eyes: Present: PERRLA - Respiratory Details: no Dyspnea Respiratory: bilateral: diminished - Cardiovascular Rhythm: regular - Labs CBC & Chem 7: 08/26/16 06:09 08/26/16 06:09 Labs: Abnormal Lab Results - Last 24 Hours (Table) 08/26/16 08/26/16 Range/Units 06:09 06:09 Plt Count 126 L (150-450) k/uL Creatinine 0.60 L (0.66-1.25) mg/dL Total Protein 6.0 L (6.3-8.2) g/dL Assessment and Plan (1) Tobacco dependence Status: Acute (2) Ribs, multiple fractures Status: Acute (3) Diverticulitis large intestine w/o perforation or abscess w/o bleeding Status: Acute (4) Atherosclerosis of abdominal aorta Status: Acute Plan: The patient is still no adeqautely increasing his voluems with the incentive spirometry. I strongly encourage increased using of the incentive spirometer. WIll continue the epidural for 48-72 hours and then sqwtich over to oral pain meds. I have recommended using a flutter valve and will have respiratroy therapy teach him to use it. Discharge planning 48- 72 hours
[2016-08-26] MEDS: SODIUM CHLORIDE 0.9% 1,000 ML IV SCH (16:25)
--- NOTE | 2016-08-26 16:41 | P.PN ---
Subjective Principal diagnosis: Chest pain secondary to right sided rib fractures traumatic in nature 66-year-old male patient with known history of COPD came into the hospital after being thrown off a horse. The patient was riding a horse in an indoor location where he was thrown off and he then got at and coupled with a horse. No reported loss of consciousness. No headaches. No seizure activity. He did suffer right chest trauma and right-sided fractures and he was having significant chest wall pain at time of admission. He was further investigated by x-ray imaging and was found to have right-sided rib fractures. The CAT scan of the chest also showed evidence of emphysema with a very tiny right-sided pleural effusion otherwise no other abnormalities were noted. The patient was having considerable amount of pain and for that reason it easy was consulted and the patient had a thoracic epidural catheter insertion for pain control. Currently his pain is around 6 out of 10 in severity. He also has had issues with constipation and a CAT scan of the abdomen showed questionable changes of diverticulitis and for that reason the patient was started on antibiotics and general surgeries on the case. No fever or chills. No nausea or vomiting. He is tolerating diet at this point. No other complaints otherwise for now. Patient was reevaluated today on 08/26/2016, continues to have the epidural catheter in place, pain is well controlled, chest x-ray is reassuring, and he is doing well overall. Overall pain is around 3 out of 10 in severity. Objective - Vital Signs Vital signs: Vital Signs Temp 97.6 F 08/26/16 14:38 Pulse 90 08/26/16 15:30 Resp 20 08/26/16 15:20 BP 131/75 08/26/16 14:38 Pulse Ox 92 L 08/26/16 14:38 Intake & Output 08/25/16 08/26/16 08/26/16 18:59 06:59 18:59 Intake Total 1880 498.870 3587 Output Total 1460 Balance 1880 -7166.307 5771 Intake: IV 200 240 Ampicillin-Sulbactam 3 gm 200 In Sodium Chloride 0.9% 100 ml @ 100 mls/hr IVPB Q12H [facility] Rx#:[id number] Sodium Chloride 0.9% 1, 240 000 ml @ 20 mls/hr IV . Q24H [facility] Rx#:[id number] Intake, IV Titration 120 168.233 Amount Bupivacaine (Pf) 0.5% 31. 168.233 3 ml fentaNYL (PF) 625 mcg In Sodium Chloride 0. 9% 206 ml @ Per Protocol EPIDURAL .Q0M [facility] Rx#: [id number] Sodium Chloride 0.9% 500 120 ml @ 999 mls/hr IV .Q31M [facility] Rx#:[id number] Oral 1560 1080 Output: Urine 1460 Other: Voiding Method Urinal # Voids 1 2 2 - Exam Head exam was generally normal. There was no scleral icterus or corneal arcus. Mucous membranes were moist.Neck was supple and without jugular venous distension, thyromegaly, or carotid bruits. Carotids were easily palpable bilaterally. There was no adenopathy. Lung sounds are diminished specially in the lung bases bilaterally along with some few scattered rhonchi and external wheezes. Chest wall was sore to palpation especially on the right. Epidural catheter is present in the upper thoracic spine.Cardiac exam revealed the PMI to be normally situated and sized. The rhythm was regular and no extrasystoles were noted during several minutes of auscultation. The first and second heart sounds were normal and physiologic splitting of the second heart sound was noted. There were no murmurs, rubs, clicks, or gallops.Abdominal exam revealed normal bowel sounds. The abdomen was soft, non-tender, and without masses, organomegaly, or appreciable enlargement of the abdominal aorta.Examination of the extremities revealed easily palpable radial, femoral and pedal pulses. There was no cyanosis, clubbing or edema. - Labs CBC & Chem 7: 08/26/16 06:09 08/26/16 06:09 Labs: Abnormal Lab Results - Last 24 Hours (Table) 08/26/16 08/26/16 Range/Units 06:09 06:09 Plt Count 126 L (150-450) k/uL Creatinine 0.60 L (0.66-1.25) mg/dL Total Protein 6.0 L (6.3-8.2) g/dL Assessment and Plan Plan: 1 right-sided rib fractures, traumatic in nature with secondary muscular skeletal chest wall pain. The patient had a thoracic epidural catheter insertion for pain control and the patient is doing better in terms of his overall pain control for now. 2 small right-sided pleural effusion 3 COPD with centrilobular emphysema based on the CAT scan findings 4 nicotine addiction/smoking 5 diverticulosis with abdominal pain and suspected diverticulitis count and antibiotics and general surgeries on the case 6 hypertension 7 hyperlipidemia 8 fall out of a hoarse/fall related injury Plan Continue pain control. Continues incentive spirometer. Repeat chest x-ray in the morning. Antibiotics for suspected diverticulitis. Gen. surgeries on the case. We'll continue to follow make further recommendations based on his progress. Early mobility and ablation is recommended for this patient. Lovenox for DVT prophylaxis. Time with Patient: Less than 30
--- NOTE | 2016-08-26 17:11 | P.PN ---
Mariely Travis is a 66-year-old white male patient of Dr. Nichols in the outpatient setting. Medical history significant for hypertension, hyperlipidemia, and reflux. 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 He was riding his horse at the [employer], when his horse became spooked and bucked him. He was then trampled by the horse several times. He had no loss of consciousness. 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 Patient was found to have evidence of found to have multiple rib fractures. There is a laceration consistent with horseshoe to his right thoracic spine. Patient was admitted to the surgical floor for pain management and observation. Currently, patient complains of significant pain with coughing and deep breathing. Denies chills, fevers, shortness of breath, abdominal pain, nausea vomiting. Patient is urinating without difficulty. Objective - Vital Signs Vital signs: Vital Signs Temp 97.6 F 08/26/16 14:38 Pulse 90 08/26/16 15:30 Resp 20 08/26/16 15:20 BP 131/75 08/26/16 14:38 Pulse Ox 92 L 08/26/16 14:38 Intake & Output 08/25/16 08/26/16 08/26/16 18:59 06:59 18:59 Intake Total 1880 347.523 2740 Output Total 1460 Balance 1880 -4941.330 1669 Intake: IV 200 240 Ampicillin-Sulbactam 3 gm 200 In Sodium Chloride 0.9% 100 ml @ 100 mls/hr IVPB Q12H [facility] Rx#:[id number] Sodium Chloride 0.9% 1, 240 000 ml @ 20 mls/hr IV . Q24H [facility] Rx#:[id number] Intake, IV Titration 120 168.233 Amount Bupivacaine (Pf) 0.5% 31. 168.233 3 ml fentaNYL (PF) 625 mcg In Sodium Chloride 0. 9% 206 ml @ Per Protocol EPIDURAL .Q0M PRN Rx#: [id number] Sodium Chloride 0.9% 500 120 ml @ 999 mls/hr IV .Q31M [facility] Rx#:[id number] Oral 1560 1080 Output: Urine 1460 Other: Voiding Method Urinal # Voids 1 2 2 - Exam GENERAL: Patient is awake and alert, sitting up in a chair, in no acute distress. HEAD: Atraumatic, normocephalic. EYES: Pupils equal round and reactive to light, extraocular movements intact, sclera anicteric, conjunctiva are normal. ENT: Moist mucous membranes. NECK: Normal range of motion, supple without lymphadenopathy or JVD LUNGS: Breath sounds coarse to auscultation bilaterally and equal. Occasional wheezes no rales or rhonchi. HEART: Regular rate and rhythm without murmurs, rubs or gallops.S1S2 Normal ABDOMEN: Soft, nontender, normoactive bowel sounds. No guarding, no rebound. No masses appreciated. EXTREMITIES: Normal range of motion, no pitting or edema. No clubbing or cyanosis. NEUROLOGICAL: Cranial nerves II through XII grossly intact. Normal speech. PSYCH: Normal mood, normal affect. SKIN: Warm, Dry, normal turgor, no rashes. As previously stated in the HPI, there is a U-shaped laceration to his right thoracic spine, consistent with horseshoe, approximately 2 mm in depth. There is an abrasion to his right posterior thigh. - Labs CBC & Chem 7: 08/26/16 06:09 08/26/16 06:09 Labs: Abnormal Lab Results - Last 24 Hours (Table) 08/26/16 08/26/16 Range/Units 06:09 06:09 Plt Count 126 L (150-450) k/uL Creatinine 0.60 L (0.66-1.25) mg/dL Total Protein 6.0 L (6.3-8.2) g/dL Assessment and Plan Plan: Impression and plan: Multiple rib fractures due to trauma: He is currently on the trauma service under Dr. Ayon's care. They're using epidural to help control his pain. COPD with abnormal chest x-ray: Pulmonology has been consulted, he is currently on Unasyn, I will add DuoNeb updrafts, guaifenesin at this time, he has an incentive spirometer to bedside, Hypertension: His blood pressure is well controlled, we will hold his amlodipine and Ziac at this time. Questionable diverticulitis. Continue antibiotics. GERD/GI prophylaxis: I will restart his pantoprazole. hyperlipidemia: Due to his muscle trauma, We will hold his simvastatin and omega -3 fatty acids at this time. DVT prophylaxis: He is currently on Lovenox The above impression and plan have been discussed and directed by Dr. Ross. Danay SOLANO acting as scribe for Dr. Ross.
[2016-08-27] MEDS: BUPIVACAINE (PF) 0.5% 31.3 ML, fentaNYL (PF) 625 MCG in SODIUM CHLORIDE 0.9% 206 ML EPIDURAL PRN ×2 (00:08→21:04)
[2016-08-27] MEDS: AMPICILLIN-SULBACTAM 1.5 GM in SODIUM CHLORIDE 0.9% 50 ML IVPB SCH ×4 (05:09→23:33)
[2016-08-27] MEDS: PANTOPRAZOLE 40 MG TABLET PO SCH (07:17)
[2016-08-27] MEDS: NICOTINE 21MG/24HR PATCH TRANSDERM SCH (07:17)
[2016-08-27] MEDS: ENOXAPARIN 40 MG/0.4 ML SYRINGE SQ SCH (07:18)
[2016-08-27] MEDS: guaiFENesin 600 MG TABLET.ER PO SCH ×2 (07:18→19:22)
[2016-08-27] MEDS: IPRATROPIUM-ALBUTEROL 3 ML NEB INHALATION SCH ×4 (07:47→20:07)
--- NOTE | 2016-08-27 08:03 | XR ---
EXAMINATION TYPE: XR chest 1V DATE OF EXAM: 08/27/2016 7:36 AM CLINICAL HISTORY: Difficulty breathing right-sided rib fractures progress study. TECHNIQUE: Single AP portable upright view of the chest is obtained. COMPARISON: Chest x-ray from one day earlier. CT cap August 24, 2016 FINDINGS: There is chronic emphysematous change with bibasilar atelectasis and/or infiltrate redemon strated. No large pleural effusion or pneumothorax is seen bilaterally. Cardiac silhouette size is st able left upper limits of normal. Underlying dextroconvex scoliosis of thoracolumbar spine is redemon strated. Several right-sided rib fractures are again seen. IMPRESSION: Overall stable findings, right greater than left bibasilar infiltrate and/or atelectasi s redemonstrated.
[2016-08-27 08:52] LABS: Basophils % (A) 0 %; CH 31.3; CHCM 33.6; Eosinophils # (A) 0.2 k/uL (0-0.7); Eosinophils % (A) 2 %; HCT 44.5 % (39.0-53.0); HDW 2.45; HGB 14.5 gm/dL (13.0-17.5); Luc # (Auto) 0.22; Luc % (Auto) 2; Lymphocytes # (A) 1.4 k/uL (1.0-4.8); Lymphocytes % (A) 15 %; MCH 30.6 pg (25.0-35.0); MCHC 32.6 g/dL (31.0-37.0); MCV 93.8 fL (80.0-100.0); Mean Platelet Volume 8.4; Monocytes # (A) 0.5 k/uL (0-1.0); Monocytes % (A) 5 %; Neutrophils # (A) 7.4 k/uL (1.3-7.7); Neutrophils % (A) 76 %; RBC 4.75 m/uL (4.30-5.90); RDW 13.2 % (11.5-15.5); WBC 9.8 k/uL (3.8-10.6); WBC (Perox) 9.97
[2016-08-27 09:09] LABS: ALT 41 U/L (21-72); AST 25 U/L (17-59); Alkaline Phosphatase 63 U/L (38-126); Anion Gap 12 mmol/L; Blood Urea Nitrogen 11 mg/dL (9-20); Calcium 8.9 mg/dL (8.4-10.2); Carbon Dioxide 25 mmol/L (22-30); Chloride 104 mmol/L (98-107); Glucose 109 mg/dL (74-99); Non-African American GFR(MDRD) >60 (>60 ml/min/1.73 sqM); Potassium 4.3 mmol/L (3.5-5.1); Sodium 141 mmol/L (137-145); Total Protein 6.4 g/dL (6.3-8.2)
--- NOTE | 2016-08-27 10:08 | P.PN ---
Progress Note - Text 0842 Anesthesia postprocedure day 4. Patient had a high thoracic epidural placed for multiple broken ribs that he sustained after being bucked from a horse 4 days ago. The epidural is running in 8 mL per hour VAS is 6, 8 and the epidural site looks good. Plan to leave the epidural in for at least 1 more day.
--- NOTE | 2016-08-27 13:29 | P.PN ---
Mariely Travis is a 66-year-old white male patient of Dr. Nichols in the outpatient setting. Medical history significant for hypertension, hyperlipidemia, and reflux. 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 He was riding his horse at the [email or web address], when his horse became spooked and bucked him. He was then trampled by the horse several times. He had no loss of consciousness. 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 Patient was found to have evidence of multiple rib fractures. There is a laceration consistent with horseshoe to his right thoracic spine. Patient was admitted to the surgical floor for pain management and observation. Currently, patient complains of significant pain with coughing and deep breathing. Patient states he is very tired and didn't sleep well the last couple of days. Denies chills, fevers, increased shortness of breath, abdominal pain, nausea vomiting. Patient is urinating without difficulty. Objective - Vital Signs Vital signs: Vital Signs Temp 98.1 F 08/27/16 07:00 Pulse 96 08/27/16 11:12 Resp 16 08/27/16 07:00 BP 141/87 08/27/16 07:00 Pulse Ox 92 L 08/27/16 07:50 Intake & Output 08/26/16 08/27/16 08/27/16 18:59 06:59 18:59 Intake Total 1560 180.533 180 Output Total 1200 Balance 1560 -1019.467 180 Intake: Intake, IV Titration 180.533 Amount Bupivacaine (Pf) 0.5% 31. 180.533 3 ml fentaNYL (PF) 625 mcg In Sodium Chloride 0. 9% 206 ml @ Per Protocol EPIDURAL .Q0M PRN Rx#: [id number] Oral 1560 180 Output: Urine 1200 Other: Voiding Method Toilet Urinal # Voids 2 1 - Exam GENERAL: Patient is awake and alert, sitting up in a chair, in no acute distress. HEAD: Atraumatic, normocephalic. EYES: Pupils equal round and reactive to light, extraocular movements intact, sclera anicteric, conjunctiva are normal. ENT: Moist mucous membranes. NECK: Normal range of motion, supple without lymphadenopathy or JVD LUNGS: Breath sounds with diminished with coarse rhonchi throughout lung [place]. Cough loose, nonproductive HEART: Regular rate and rhythm without murmurs, rubs or gallops. S1S2 Normal ABDOMEN: Soft, nontender, normoactive bowel sounds. No guarding, no rebound. No masses appreciated. EXTREMITIES: Normal range of motion, no pitting or edema. No clubbing or cyanosis. NEUROLOGICAL: Cranial nerves II through XII grossly intact. Normal speech. PSYCH: Normal mood, normal affect. SKIN: Warm, Dry, normal turgor, no rashes. - Labs CBC & Chem 7: 08/27/16 08:04 08/27/16 08:02 Labs: Abnormal Lab Results - Last 24 Hours (Table) 08/27/16 08/27/16 Range/Units 08:02 08:04 Plt Count 136 L (150-450) k/uL Glucose 109 H (74-99) mg/dL Assessment and Plan Plan: Impression and plan: Multiple rib fractures due to trauma: He is currently on the trauma service under Dr. Ayon's care. They're using epidural to help control his pain. COPD with abnormal chest x-ray: Pulmonology has been consulted, he is currently on Unasyn, I will add DuoNeb updrafts, guaifenesin at this time, he has an incentive spirometer to bedside. Hypertension: His blood pressure is well controlled, we will hold his amlodipine and Ziac at this time. Questionable diverticulitis. Continue antibiotics. GERD/GI prophylaxis: I will restart his pantoprazole. hyperlipidemia: Due to his muscle trauma, We will hold his simvastatin and omega -3 fatty acids at this time. DVT prophylaxis: He is currently on Lovenox The above impression and plan have been discussed and directed by Dr. Ross. Danay SOLANO acting as scribe for Dr. Ross.
--- NOTE | 2016-08-27 13:31 | P.PN ---
Subjective Principal diagnosis: Trauma with multiple rib fractures Patient is a 66-year-old male with multiple rib fractures from a horse trampling. Continues to have of pain he is using incentive spirometer that has been improving his volumes. No nausea or vomiiting. Ambulating with walker. Objective - Vital Signs Vital signs: Vital Signs Temp 98.1 F 08/27/16 07:00 Pulse 96 08/27/16 11:12 Resp 16 08/27/16 07:00 BP 141/87 08/27/16 07:00 Pulse Ox 92 L 08/27/16 07:50 Intake & Output 08/26/16 08/27/16 08/27/16 18:59 06:59 18:59 Intake Total 1560 180.533 180 Output Total 1200 Balance 1560 -1019.467 180 Intake: Intake, IV Titration 180.533 Amount Bupivacaine (Pf) 0.5% 31. 180.533 3 ml fentaNYL (PF) 625 mcg In Sodium Chloride 0. 9% 206 ml @ Per Protocol EPIDURAL .Q0M PRN Rx#: [id number] Oral 1560 180 Output: Urine 1200 Other: Voiding Method Toilet Urinal # Voids 2 1 - Constitutional General appearance: Present: average body habitus, cooperative - EENT Eyes: Present: PERRLA - Respiratory Details: Normal respiratory effrort. Significant pain the int he right chest on breathing and coughing. - Cardiovascular Rhythm: regular - Gastrointestinal General gastrointestinal: Present: soft - Labs CBC & Chem 7: 08/27/16 08:04 08/27/16 08:02 Labs: Abnormal Lab Results - Last 24 Hours (Table) 08/27/16 08/27/16 Range/Units 08:02 08:04 Plt Count 136 L (150-450) k/uL Glucose 109 H (74-99) mg/dL Assessment and Plan (1) Tobacco dependence Status: Acute (2) Ribs, multiple fractures Status: Acute (3) Diverticulitis large intestine w/o perforation or abscess w/o bleeding Status: Acute (4) Atherosclerosis of abdominal aorta Status: Acute Plan: The patient is imrpving his incentive spiromery. I strongly encourage increased using of the incentive spirometer. WIll continue the epidural for 24 hours and then sqwtich over to oral pain meds. Will need rehab . Discharge planning 48 hours
--- NOTE | 2016-08-27 16:02 | P.PN ---
Subjective This is a very pleasant 66-year-old male patient with known history of COPD came into the hospital after being thrown off a horse. The patient was riding a horse in an indoor location where he was thrown off and he then got trampled by the horse, mostly involving his right upper back.. No reported loss of consciousness. No headaches. No seizure activity. He did suffer right chest trauma and right-sided fractures and he was having significant chest wall pain at time of admission. He was further investigated by x-ray imaging and was found to have right-sided rib fractures. The CAT scan of the chest also showed evidence of emphysema with a very tiny right-sided pleural effusion otherwise no other abnormalities were noted. The patient was having considerable amount of pain and for that reason Dr. Welch was consulted and the patient had a thoracic epidural catheter insertion for pain control. He also has had issues with constipation and a CAT scan of the abdomen showed questionable changes of diverticulitis and for that reason the patient was started on antibiotics and general surgeries on the case. The patient is seen again today 08/27/2016 in follow-up. He is awake and alert in no acute distress. He denies any worsening shortness of breath, cough or congestion. He is guarding his right side of the chest. Today's chest x-ray revealed evidence of chronic emphysema with bibasilar atelectasis/infiltrates redemonstrated. No enlarged effusions or pneumothorax appreciated. He is pulling approximately 1500 MLS on the incentive spirometer. He has had ongoing pain issues despite the epidural catheter with bupivacaine/fentanyl infusion. Objective - Vital Signs Vital signs: Vital Signs Temp 98.2 F 08/27/16 14:16 Pulse 100 08/27/16 15:38 Resp 16 08/27/16 14:16 BP 124/81 08/27/16 14:16 Pulse Ox 91 L 08/27/16 14:16 Intake & Output 08/26/16 08/27/16 08/27/16 18:59 06:59 18:59 Intake Total 1560 885.103 1878 Output Total 1200 Balance 1560 -9751.079 3069 Intake: Intake, IV Titration 180.533 Amount Bupivacaine (Pf) 0.5% 31. 180.533 3 ml fentaNYL (PF) 625 mcg In Sodium Chloride 0. 9% 206 ml @ Per Protocol EPIDURAL .Q0M PRN Rx#: [id number] Oral 1560 1220 Output: Urine 1200 Other: Voiding Method Toilet Urinal # Voids 2 1 - Exam GENERAL EXAM: Alert, fairly comfortable in no apparent distress. HEAD: Normocephalic. EYES: Normal reaction of pupils, equal size. NOSE: Clear with pink turbinates. THROAT: No erythema or exudates. NECK: No masses, no JVD. CHEST: No chest wall deformity. LUNGS: Equal air entry with no crackles, wheeze, rhonchi or dullness. CVS: S1 and S2 normal with no use scattered rhonchi, crackles in the posterior bases, diminished.. ABDOMEN: No hepatosplenomegaly, normal bowel sounds, no guarding or rigidity. SPINE: No scoliosis or deformity due to epidural catheter secured in place. SKIN: No rashes CENTRAL NERVOUS SYSTEM: No focal deficits, tone is normal in all 4 extremities. Extremities: There is no peripheral edema. No clubbing, no cyanosis. Pulses are intact. - Labs CBC & Chem 7: 08/27/16 08:04 08/27/16 08:02 Labs: Abnormal Lab Results - Last 24 Hours (Table) 08/27/16 08/27/16 Range/Units 08:02 08:04 Plt Count 136 L (150-450) k/uL Glucose 109 H (74-99) mg/dL Assessment and Plan Plan: Impression: #1 Right-sided rib fractures, traumatic in nature from fall from horse and being trampled with secondary musculoskeletal chest wall pain. The patient had a thoracic epidural catheter insertion for pain control. #2 Small right-sided pleural effusion. #3 Acute exacerbation of chronic obstructive pulmonary disease with centrilobular emphysema based on computed tomography scan findings. #4 Chronic and ongoing tobacco dependence. #5 Diverticulosis with abdominal pain and suspected diverticulitis. Antibiotics per general surgery. #6 Hypertension. #7 Hyperlipidemia. Plan: The patient was seen and evaluated by Dr. Amos. Today's chest x-ray was reviewed. There is some evidence of COPD, some bibasilar atelectasis/ infiltrates. No pneumothorax. The patient is again encouraged regarding the increased use of the incentive spirometer and cough and deep breathing exercises. He is also educated regarding the importance of complete smoking cessation. A NicoDerm patches in place. We'll continue to assure adequate pain control. Is on Lovenox for DVT prophylaxis. We will increase his activity as tolerated. We'll continue to follow make further recommendations based on his clinical status.
[2016-08-27] MEDS: SODIUM CHLORIDE 0.9% 1,000 ML IV SCH (19:22)
[2016-08-28] MEDS: AMPICILLIN-SULBACTAM 1.5 GM in SODIUM CHLORIDE 0.9% 50 ML IVPB SCH ×4 (05:03→23:56)
[2016-08-28 07:57] LABS: Basophils % (A) 0 %; CH 31.3; Eosinophils # (A) 0.3 k/uL (0-0.7); Eosinophils % (A) 3 %; HCT 42.1 % (39.0-53.0); HDW 2.55; HGB 13.8 gm/dL (13.0-17.5); Luc % (Auto) 3; Lymphocytes # (A) 1.7 k/uL (1.0-4.8); Lymphocytes % (A) 18 %; MCH 30.4 pg (25.0-35.0); MCHC 32.9 g/dL (31.0-37.0); MCV 92.5 fL (80.0-100.0); Mean Platelet Volume 9.2; Monocytes # (A) 0.7 k/uL (0-1.0); Monocytes % (A) 7 %; Neutrophils # (A) 6.6 k/uL (1.3-7.7); Neutrophils % (A) 69 %; RBC 4.55 m/uL (4.30-5.90); RDW 13.2 % (11.5-15.5); WBC 9.5 k/uL (3.8-10.6); WBC (Perox) 9.98
[2016-08-28] MEDS: ENOXAPARIN 40 MG/0.4 ML SYRINGE SQ SCH (08:06)
[2016-08-28 08:10] LABS: ALT 43 U/L (21-72); AST 23 U/L (17-59); Alkaline Phosphatase 59 U/L (38-126); Anion Gap 11 mmol/L; Blood Urea Nitrogen 13 mg/dL (9-20); Carbon Dioxide 25 mmol/L (22-30); Chloride 104 mmol/L (98-107); Glucose 109 mg/dL (74-99); Non-African American GFR(MDRD) >60 (>60 ml/min/1.73 sqM); Potassium 4.2 mmol/L (3.5-5.1); Sodium 140 mmol/L (137-145); Total Protein 6.4 g/dL (6.3-8.2)
[2016-08-28] MEDS: guaiFENesin 600 MG TABLET.ER PO SCH ×2 (08:14→22:06)
[2016-08-28] MEDS: PANTOPRAZOLE 40 MG TABLET PO SCH (08:14)
[2016-08-28] MEDS: NICOTINE 21MG/24HR PATCH TRANSDERM SCH (08:14)
[2016-08-28] MEDS: IPRATROPIUM-ALBUTEROL 3 ML NEB INHALATION SCH ×4 (08:46→19:32)
--- NOTE | 2016-08-28 09:34 | P.PN ---
Progress Note - Text 66 years old male with a multiple ribs fractures, patient currently on epidural infusion day 5 of epidural infusion, currently at 8 mL per hour, fentanyl/ bupivacaine, Epidural site okay, he had no motor deficit, epidural catheter will be discontinued today and patient will continue to receive IV Dilaudid but I will increase the dose to 1 mg every hour when necessary,
[2016-08-28] MEDS ORDERED: MAGNESIUM HYDROXIDE 2,400 MG/10 ML CUP PO PRN (11:05)
[2016-08-28] MEDS ORDERED: CALCIUM CARBONATE 500 MG CHEWABLE PO PRN (11:43)
--- NOTE | 2016-08-28 11:47 | XR ---
EXAMINATION TYPE: XR chest 1V DATE OF EXAM: 08/28/2016 11:40 AM COMPARISON: 08/27/2016 HISTORY: 66-year-old male with chest pain TECHNIQUE: Single frontal view of the chest is obtained. FINDINGS: Heart is normal size. Mild interstitial prominence and focal right basilar opacity. Similar patchy op acity at the left base. Known right-sided rib fractures are subtly apparent. IMPRESSION: Relatively stable right greater than left bibasilar atelectasis or infiltrates. Known right-sided rib fractures are subtly apparent.
[2016-08-28] MEDS: HYDROmorphone 1 MG/ML 1 ML SYRINGE IVP PRN ×2 (13:14→16:25)
[2016-08-28] MEDS: LIDOCAINE 5% PATCH TOPICAL SCH (13:15)
--- NOTE | 2016-08-28 14:49 | P.PN ---
Subjective This is a very pleasant 66-year-old male patient with known history of COPD came into the hospital after being thrown off a horse. The patient was riding a horse in an indoor location where he was thrown off and he then got trampled by the horse, mostly involving his right upper back.. No reported loss of consciousness. No headaches. No seizure activity. He did suffer right chest trauma and right-sided fractures and he was having significant chest wall pain at time of admission. He was further investigated by x-ray imaging and was found to have right-sided rib fractures. The CAT scan of the chest also showed evidence of emphysema with a very tiny right-sided pleural effusion otherwise no other abnormalities were noted. The patient was having considerable amount of pain and for that reason Dr. Welch was consulted and the patient had a thoracic epidural catheter insertion for pain control. He also has had issues with constipation and a CAT scan of the abdomen showed questionable changes of diverticulitis and for that reason the patient was started on antibiotics and general surgeries on the case. The patient is seen again today 08/28/2016 in follow-up. He is awake and alert in no acute distress. He still has some pain in the right chest area with continued guarding. He is working well with the incentive spirometer and pulling approximately 1500 MLS. His chest x-ray today reveals a stable right greater than left bibasilar atelectasis. He is maintaining good O2 saturations in the low 90s on 2 L/m per nasal cannula. Currently afebrile. The patient has been up ambulating in his room. The plan is for removal of the epidural and will switch him to IV Solu-Medrol for better pain control. Objective - Vital Signs Vital signs: Vital Signs Temp 97.1 F L 08/28/16 08:12 Pulse 102 H 08/28/16 08:56 Resp 20 08/28/16 08:12 BP 136/80 08/28/16 08:12 Pulse Ox 92 L 08/28/16 08:12 Intake & Output 08/27/16 08/28/16 08/28/16 18:59 06:59 18:59 Intake Total 1460 167.467 160 Output Total 400 Balance 1460 -232.533 160 Intake: IV 160 Ampicillin-Sulbactam 3 gm 160 In Sodium Chloride 0.9% 100 ml @ 100 mls/hr IVPB Q12H [facility] Rx#:[id number] Intake, IV Titration 167.467 Amount Bupivacaine (Pf) 0.5% 31. 167.467 3 ml fentaNYL (PF) 625 mcg In Sodium Chloride 0. 9% 206 ml @ Per Protocol EPIDURAL .Q0M PRN Rx#: [id number] Oral 1460 Output: Urine 400 Other: Voiding Method Toilet Urinal # Voids 1 # Bowel Movements 1 - Exam GENERAL EXAM: Alert, fairly comfortable in no apparent distress. HEAD: Normocephalic. EYES: Normal reaction of pupils, equal size. NOSE: Clear with pink turbinates. THROAT: No erythema or exudates. NECK: No masses, no JVD. CHEST: No chest wall deformity. LUNGS: Equal air entry with no crackles, wheeze, rhonchi or dullness. CVS: S1 and S2 normal with no use scattered rhonchi, crackles in the posterior bases, diminished.. ABDOMEN: No hepatosplenomegaly, normal bowel sounds, no guarding or rigidity. SPINE: No scoliosis or deformity due to epidural catheter secured in place. SKIN: No rashes CENTRAL NERVOUS SYSTEM: No focal deficits, tone is normal in all 4 extremities. Extremities: There is no peripheral edema. No clubbing, no cyanosis. Pulses are intact. - Labs CBC & Chem 7: 08/28/16 07:21 08/28/16 07:21 Labs: Abnormal Lab Results - Last 24 Hours (Table) 08/28/16 08/28/16 Range/Units 07:21 07:21 Plt Count 144 L (150-450) k/uL Glucose 109 H (74-99) mg/dL Albumin 3.4 L (3.5-5.0) g/dL Assessment and Plan Plan: Impression: #1 Right-sided rib fractures, traumatic in nature from fall from horse and being trampled with secondary musculoskeletal chest wall pain. The patient had a thoracic epidural catheter insertion for pain control. #2 Small bibasilar right-sided greater than left pleural effusion/atelectasis. #3 Acute exacerbation of chronic obstructive pulmonary disease with centrilobular emphysema based on computed tomography scan findings. #4 Chronic and ongoing tobacco dependence. #5 Diverticulosis with abdominal pain and suspected diverticulitis. Antibiotics per general surgery. #6 Hypertension. #7 Hyperlipidemia. Plan: The patient was seen and evaluated by Dr. Amos. Today's chest x-ray was reviewed. There is evidence of COPD, some bibasilar atelectasis/infiltrates right greater than left. No pneumothorax. He is on antibiotics in the form of Unasyn along with bronchodilators. The patient is again encouraged regarding the increased use of the incentive spirometer and cough and deep breathing exercises. He is also educated regarding the importance of complete smoking cessation. A NicoDerm patches in place. We'll continue to assure adequate pain control. He is on Lovenox for DVT prophylaxis, Protonix for GI prophylaxis. We will increase his activity as tolerated. We'll continue to follow make further recommendations based on his clinical status.
--- NOTE | 2016-08-28 15:57 | P.PN ---
Mariely Travis is a 66-year-old white male patient of Dr. Nichols in the outpatient setting. Medical history significant for hypertension, hyperlipidemia, and reflux. 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 He was riding his horse at the [employer], when his horse became spooked and bucked him. He was then trampled by the horse several times. He had no loss of consciousness. He was transported to [facility] and admitted to the trauma service, Dr. 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 Patient was found to have evidence of multiple rib fractures. There is a laceration consistent with horseshoe to his right thoracic spine. Patient was admitted to the surgical floor for pain management and observation. Currently, patient reports improvement in chest discomfort compared to yesterday. Denies chills, fevers, increased shortness of breath, abdominal pain, nausea vomiting. Patient is urinating without difficulty. Chest x-ray shows relatively stable right greater than left bibasilar atelectasis or infiltrates with known right- sided rib fractures. Objective - Vital Signs Vital signs: Vital Signs Temp 98.1 F 08/28/16 15:00 Pulse 101 H 08/28/16 15:00 Resp 16 08/28/16 15:00 BP 126/78 08/28/16 15:00 Pulse Ox 93 L 08/28/16 15:00 Intake & Output 08/27/16 08/28/16 08/28/16 18:59 06:59 18:59 Intake Total 1460 167.467 160 Output Total 400 Balance 1460 -232.533 160 Intake: IV 160 Ampicillin-Sulbactam 3 gm 160 In Sodium Chloride 0.9% 100 ml @ 100 mls/hr IVPB Q12H [facility] Rx#:[id number] Intake, IV Titration 167.467 Amount Bupivacaine (Pf) 0.5% 31. 167.467 3 ml fentaNYL (PF) 625 mcg In Sodium Chloride 0. 9% 206 ml @ Per Protocol EPIDURAL .Q0M PRN Rx#: [id number] Oral 1460 Output: Urine 400 Other: Voiding Method Toilet Urinal # Voids 1 # Bowel Movements 1 - Exam GENERAL: Patient is awake and alert, sitting up in a chair, in no acute distress. HEAD: Atraumatic, normocephalic. EYES: Pupils equal round and reactive to light, extraocular movements intact, sclera anicteric, conjunctiva are normal. ENT: Moist mucous membranes. NECK: Normal range of motion, supple without lymphadenopathy or JVD LUNGS: Breath sounds with diminished with coarse rhonchi throughout lung eugene. Cough loose, nonproductive HEART: Regular rate and rhythm without murmurs, rubs or gallops. S1S2 Normal ABDOMEN: Soft, nontender, normoactive bowel sounds. No guarding, no rebound. No masses appreciated. EXTREMITIES: Normal range of motion, no pitting or edema. No clubbing or cyanosis. NEUROLOGICAL: Cranial nerves II through XII grossly intact. Normal speech. PSYCH: Normal mood, normal affect. SKIN: Warm, Dry, normal turgor, no rashes. - Labs CBC & Chem 7: 08/28/16 07:21 08/28/16 07:21 Labs: Abnormal Lab Results - Last 24 Hours (Table) 08/28/16 08/28/16 Range/Units 07:21 07:21 Plt Count 144 L (150-450) k/uL Glucose 109 H (74-99) mg/dL Albumin 3.4 L (3.5-5.0) g/dL Assessment and Plan Plan: Impression and plan: Multiple rib fractures due to trauma: He is currently on the trauma service under Dr. Ayon's care. They're using epidural to help control his pain. COPD with abnormal chest x-ray: Pulmonology has been consulted, he is currently on Unasyn, I will add DuoNeb updrafts, guaifenesin at this time, he has an incentive spirometer to bedside. Hypertension: His blood pressure is well controlled, we will hold his amlodipine and Ziac at this time. Questionable diverticulitis. Continue antibiotics. GERD/GI prophylaxis: I will restart his pantoprazole. hyperlipidemia: Due to his muscle trauma, We will hold his simvastatin and omega -3 fatty acids at this time. DVT prophylaxis: He is currently on Lovenox The above impression and plan have been discussed and directed by Dr. Ross. Danay SOLANO acting as scribe for Dr. Ross.
[2016-08-28] MEDS ORDERED: POLYETHYLENE GLYCOL 3350 17 GM POWD.PACK PO PRN (17:07)
--- NOTE | 2016-08-28 17:07 | P.PN ---
Subjective Principal diagnosis: Trauma with multiple rib fractures Patient is a 66-year-old male with multiple rib fractures from a horse trampling. The epidural was taken out this morning and he has not had a bowel movments in 3-4 days. No nasuea or vomiting. ON regular diet. . Objective - Vital Signs Vital signs: Vital Signs Temp 98.1 F 08/28/16 15:00 Pulse 101 H 08/28/16 15:00 Resp 16 08/28/16 15:00 BP 126/78 08/28/16 15:00 Pulse Ox 93 L 08/28/16 15:00 Intake & Output 08/27/16 08/28/16 08/28/16 18:59 06:59 18:59 Intake Total 1460 167.467 160 Output Total 400 Balance 1460 -232.533 160 Intake: IV 160 Ampicillin-Sulbactam 3 gm 160 In Sodium Chloride 0.9% 100 ml @ 100 mls/hr IVPB Q12H [facility] Rx#:[id number] Intake, IV Titration 167.467 Amount Bupivacaine (Pf) 0.5% 31. 167.467 3 ml fentaNYL (PF) 625 mcg In Sodium Chloride 0. 9% 206 ml @ Per Protocol EPIDURAL .Q0M PRN Rx#: [id number] Oral 1460 Output: Urine 400 Other: Voiding Method Toilet Urinal # Voids 1 # Bowel Movements 1 - Constitutional General appearance: Present: average body habitus, cooperative - EENT Eyes: Present: PERRLA ENT: Present: hard of hearing - Respiratory Details: slight reduced basal sounds, some tranmsitted sounds. Respiratory: left: wheezing, bilateral: CTA, negative: rales, rhonchi - Cardiovascular Rhythm: regular Heart sounds: normal: S1, S2 - Gastrointestinal General gastrointestinal: Present: soft. Absent: tenderness - Neurologic Neurologic: Present: CNII-XII intact, focal deficits - Musculoskeletal Musculoskeletal Comment(s): limited mobiltiy due to pain - Psychiatric Psychiatric: Present: A&O x's 3, appropriate affect, intact judgment & insight - Labs CBC & Chem 7: 08/28/16 07:21 08/28/16 07:21 Labs: Abnormal Lab Results - Last 24 Hours (Table) 08/28/16 08/28/16 Range/Units 07:21 07:21 Plt Count 144 L (150-450) k/uL Glucose 109 H (74-99) mg/dL Albumin 3.4 L (3.5-5.0) g/dL Assessment and Plan (1) Tobacco dependence Status: Acute (2) Ribs, multiple fractures Status: Acute (3) Diverticulitis large intestine w/o perforation or abscess w/o bleeding Status: Acute (4) Atherosclerosis of abdominal aorta Status: Acute Plan: The patient is not doing his spirometry frequently enough. I strongly encourage increased using of the incentive spirometer. Epidural removed, Lidoderm patch placed. Oral and IV pain meds prescribed. Laxatives prescribed. Will need rehab . Discharge planning 48 hours
[2016-08-28] MEDS: HYDROcodone/APAP 5-325MG 1 EACH TAB PO PRN (22:06)
[2016-08-28] MEDS: SODIUM CHLORIDE 0.9% 1,000 ML IV SCH (22:06)
[2016-08-29] MEDS: HYDROcodone/APAP 5-325MG 1 EACH TAB PO PRN ×5 (03:03→21:18)
[2016-08-29] MEDS: AMPICILLIN-SULBACTAM 1.5 GM in SODIUM CHLORIDE 0.9% 50 ML IVPB SCH ×2 (05:44→12:02)
[2016-08-29] MEDS: SODIUM CHLORIDE 0.9% 1,000 ML IV SCH ×2 (06:45→19:19)
[2016-08-29] MEDS: IPRATROPIUM-ALBUTEROL 3 ML NEB INHALATION SCH ×4 (07:24→21:01)
[2016-08-29] MEDS: NICOTINE 21MG/24HR PATCH TRANSDERM SCH (11:03)
[2016-08-29] MEDS: PANTOPRAZOLE 40 MG TABLET PO SCH (11:05)
[2016-08-29] MEDS: guaiFENesin 600 MG TABLET.ER PO SCH ×2 (11:05→19:18)
[2016-08-29] MEDS: ENOXAPARIN 40 MG/0.4 ML SYRINGE SQ SCH (11:05)
[2016-08-29] MEDS: LIDOCAINE 5% PATCH TOPICAL SCH (11:06)
--- NOTE | 2016-08-29 11:32 | P.PN ---
Subjective Principal diagnosis: Chest pain secondary to right sided rib fractures traumatic in nature This is a very pleasant 66-year-old male patient with known history of COPD came into the hospital after being thrown off a horse. The patient was riding a horse in an indoor location where he was thrown off and he then got trampled by the horse, mostly involving his right upper back.. No reported loss of consciousness. No headaches. No seizure activity. He did suffer right chest trauma and right-sided fractures and he was having significant chest wall pain at time of admission. He was further investigated by x-ray imaging and was found to have right-sided rib fractures. The CAT scan of the chest also showed evidence of emphysema with a very tiny right-sided pleural effusion otherwise no other abnormalities were noted. The patient was having considerable amount of pain and for that reason Dr. Welch was consulted and the patient had a thoracic epidural catheter insertion for pain control. He also has had issues with constipation and a CAT scan of the abdomen showed questionable changes of diverticulitis and for that reason the patient was started on antibiotics and general surgeries on the case. The patient is seen again today 08/28/2016 in follow-up. He is awake and alert in no acute distress. He still has some pain in the right chest area with continued guarding. He is working well with the incentive spirometer and pulling approximately 1500 MLS. His chest x-ray today reveals a stable right greater than left bibasilar atelectasis. He is maintaining good O2 saturations in the low 90s on 2 L/m per nasal cannula. Currently afebrile. The patient has been up ambulating in his room. The plan is for removal of the epidural and will switch him to IV Solu-Medrol for better pain control. Patient was reevaluated today on 08/29/2016, and he seems to be doing quite well. Patient is doing deep coughing and deep breathing, and able to clear his white secretions easily. He is compliant with his incentive spirometry, chest x -ray from yesterday showed moderate right lower lobe atelectasis hence the patient was advised to be more aggressive with incentive spirometry and deep coughing and deep breathing. Labs were reviewed Objective - Vital Signs Vital signs: Vital Signs Temp 98 F 08/29/16 07:00 Pulse 100 08/29/16 07:35 Resp 16 08/29/16 07:00 BP 130/72 08/29/16 07:00 Pulse Ox 93 L 08/29/16 07:26 Intake & Output 08/28/16 08/29/16 08/29/16 18:59 06:59 18:59 Intake Total 410 240 Output Total 200 Balance 410 40 Intake: IV 160 240 Ampicillin-Sulbactam 3 gm 160 In Sodium Chloride 0.9% 100 ml @ 100 mls/hr IVPB Q12H [facility] Rx#:[id number] Sodium Chloride 0.9% 1, 240 000 ml @ 20 mls/hr IV . Q24H [facility] Rx#:[id number] Oral 250 Output: Urine 200 Other: Voiding Method Urinal # Voids 2 # Bowel Movements 1 - Exam GENERAL EXAM: Alert, fairly comfortable in no apparent distress. HEAD: Normocephalic. EYES: Normal reaction of pupils, equal size. NOSE: Clear with pink turbinates. THROAT: No erythema or exudates. NECK: No masses, no JVD. CHEST: No chest wall deformity. LUNGS: Equal air entry with no crackles, wheeze, rhonchi or dullness. CVS: S1 and S2 normal with no use scattered rhonchi, crackles in the posterior bases, diminished.. ABDOMEN: No hepatosplenomegaly, normal bowel sounds, no guarding or rigidity. SPINE: No scoliosis or deformity due to epidural catheter secured in place. SKIN: No rashes CENTRAL NERVOUS SYSTEM: No focal deficits, tone is normal in all 4 extremities. Extremities: There is no peripheral edema. No clubbing, no cyanosis. Pulses are intact. - Labs CBC & Chem 7: 08/28/16 07:21 08/28/16 07:21 Assessment and Plan Plan: #1 Right-sided rib fractures, traumatic in nature from fall from horse and being trampled with secondary musculoskeletal chest wall pain. The patient had a thoracic epidural catheter insertion for pain control. This was removed yesterday #2 Small bibasilar right-sided greater than left pleural effusion/atelectasis. #3 Acute exacerbation of chronic obstructive pulmonary disease with centrilobular emphysema based on computed tomography scan findings. #4 Chronic and ongoing tobacco dependence. #5 Diverticulosis with abdominal pain and suspected diverticulitis. Antibiotics per general surgery. #6 Hypertension. #7 Hyperlipidemia. Recommendation: Continue present supportive care measures, continue bronchodilators, incentive spirometry, ambulation, updrafts, and monitor chest x -ray have follow-up chest x-ray in a.m. Time with Patient: Less than 30
--- NOTE | 2016-08-29 14:19 | P.PN ---
Subjective Principal diagnosis: Trauma with multiple rib fractures Patient is a 66-year-old male with multiple rib fractures from a horse trampling. Is on IV as well as oral pain medications and tolerating well except her bowel movements and having a meal. He is breathing much better than before his coughing up less he is taking deep breaths. He is otherwise ablating with assistance. Objective - Vital Signs Vital signs: Vital Signs Temp 98 F 08/29/16 07:00 Pulse 100 08/29/16 07:35 Resp 16 08/29/16 07:00 BP 130/72 08/29/16 07:00 Pulse Ox 93 L 08/29/16 07:26 Intake & Output 08/28/16 08/29/16 08/29/16 18:59 06:59 18:59 Intake Total 410 240 Output Total 200 600 Balance 410 40 -600 Intake: IV 160 240 Ampicillin-Sulbactam 3 gm 160 In Sodium Chloride 0.9% 100 ml @ 100 mls/hr IVPB Q12H [facility] Rx#:[id number] Sodium Chloride 0.9% 1, 240 000 ml @ 20 mls/hr IV . Q24H [facility] Rx#:[id number] Oral 250 Output: Urine 200 600 Other: Voiding Method Urinal # Voids 2 # Bowel Movements 1 - Constitutional General appearance: Present: cooperative - EENT Eyes: Present: PERRLA - Respiratory Details: Moderate pain with taking deep breaths with no dyspnea R use of accessory muscles of respiration - Cardiovascular Rhythm: regular - Gastrointestinal General gastrointestinal: Present: soft - Labs CBC & Chem 7: 08/28/16 07:21 08/28/16 07:21 Assessment and Plan (1) Tobacco dependence Status: Acute (2) Ribs, multiple fractures Status: Acute (3) Diverticulitis large intestine w/o perforation or abscess w/o bleeding Status: Acute (4) Atherosclerosis of abdominal aorta Status: Acute Plan: Overall the patient is doing very well to convert the IV Augmentin to oral tablets. We will discontinue the IV pain medication. He may be hep-locked. Patient is potentially ready to go home in 24-48 hours.
--- NOTE | 2016-08-29 14:35 | XR ---
EXAMINATION TYPE: XR chest 1V DATE OF EXAM: 08/29/2016 2:29 PM CLINICAL HISTORY: Difficulty breathing progress study. Known multiple rib fractures. TECHNIQUE: Single AP portable upright view of the chest is obtained. COMPARISON: Chest x-ray from one day earlier FINDINGS: There is persistent right greater than left patchy bibasilar atelectasis and/or infiltrate . Several displaced right-sided rib fractures are redemonstrated. Upper lungs remain clear without pn eumothorax seen bilaterally. Cardiac silhouette size is stable and within normal limits without refle ct thoracic aorta. Underlying scoliosis is redemonstrated. IMPRESSION: Overall stable findings, right greater than left bibasilar infiltrate and/or atelectasi s redemonstrated, no new infiltrate is seen.
--- NOTE | 2016-08-29 16:56 | P.PN ---
Mariely Travis is a 66-year-old white male patient of Dr. Nichols in the outpatient setting. Medical history significant for hypertension, hyperlipidemia, and reflux. 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 He was riding his horse at the [employer], when his horse became spooked and bucked him. He was then trampled by the horse several times. He had no loss of consciousness. 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 Patient was found to have evidence of found to have multiple rib fractures. There is a laceration consistent with horseshoe to his right thoracic spine. Patient was admitted to the surgical floor for pain management and observation. Patient is feeling better. Still complains of chest pain with coughing and movement but states it's better than yesterday. Denies chills , fevers, shortness of breath, abdominal pain, nausea vomiting. Patient is urinating without difficulty. Patient did have a bowel movement. Patient reports good appetite. Objective - Vital Signs Vital signs: Vital Signs Temp 98.3 F 08/29/16 14:00 Pulse 104 H 08/29/16 16:22 Resp 16 08/29/16 14:00 BP 147/87 08/29/16 14:00 Pulse Ox 93 L 08/29/16 14:00 Intake & Output 08/28/16 08/29/16 08/29/16 18:59 06:59 18:59 Intake Total 410 240 240 Output Total 200 600 Balance 410 40 -360 Intake: IV 160 240 Ampicillin-Sulbactam 3 gm 160 In Sodium Chloride 0.9% 100 ml @ 100 mls/hr IVPB Q12H [facility] Rx#:[id number] Sodium Chloride 0.9% 1, 240 000 ml @ 20 mls/hr IV . Q24H [facility] Rx#:[id number] Oral 250 240 Output: Urine 200 600 Other: Voiding Method Urinal # Voids 2 2 # Bowel Movements 1 - Exam GENERAL: Patient is awake and alert, sitting up in a chair, in no acute distress. HEAD: Atraumatic, normocephalic. EYES: Pupils equal round and reactive to light, extraocular movements intact, sclera anicteric, conjunctiva are normal. ENT: Moist mucous membranes. NECK: Normal range of motion, supple without lymphadenopathy or JVD LUNGS: Breath sounds with diminished with coarse rhonchi throughout lung eugene. Cough loose, productive HEART: Regular rate and rhythm without murmurs, rubs or gallops. S1S2 Normal ABDOMEN: Soft, nontender, normoactive bowel sounds. No guarding, no rebound. No masses appreciated. EXTREMITIES: Normal range of motion, no pitting or edema. No clubbing or cyanosis. NEUROLOGICAL: Cranial nerves II through XII grossly intact. Normal speech. PSYCH: Normal mood, normal affect. SKIN: Warm, Dry, normal turgor, no rashes. - Labs CBC & Chem 7: 08/28/16 07:21 08/28/16 07:21 Assessment and Plan Plan: Impression and plan: Multiple rib fractures due to trauma: He is currently on the trauma service under Dr. Ayon's care. Epidural has been discontinued. COPD with abnormal chest x-ray: Pulmonology has been consulted, he is currently on Unasyn, I will add DuoNeb updrafts, guaifenesin at this time, he has an incentive spirometer to bedside. Hypertension: His blood pressure is well controlled, we will hold his amlodipine and Ziac at this time. Questionable diverticulitis. Continue antibiotics. GERD/GI prophylaxis: I will restart his pantoprazole. hyperlipidemia: Due to his muscle trauma, We will hold his simvastatin and omega -3 fatty acids at this time. DVT prophylaxis: He is currently on Lovenox Did speak with Dr. Ayon was contemplating discharge tomorrow if patient remains clinically stable. Patient will follow-up with Dr. Ross in the outpatient setting. The above impression and plan have been discussed and directed by Dr. Ross. Danay SOLANO acting as scribe for Dr. Ross.
[2016-08-29] MEDS: AMOXIC-POT CLAV 875-125MG 1 EACH TAB PO SCH (19:18)
[2016-08-30] MEDS: HYDROcodone/APAP 5-325MG 1 EACH TAB PO PRN ×3 (01:16→10:25)
--- NOTE | 2016-08-30 07:35 | XR ---
EXAMINATION TYPE: XR chest 1V DATE OF EXAM: 08/30/2016 7:27 AM COMPARISON: 08/29/2016 INDICATION: Rib fracture difficulty breathing TECHNIQUE: Single frontal view of the chest is obtained. FINDINGS: The heart size is normal. The pulmonary vasculature is normal. Bibasilar infiltrates are present. Correlate for atelectasis. There is a subtle fracture which appear s displaced on the posterior lateral right seventh rib. Sixth and eighth rib fractures are not exclud ed. No pneumothorax is evident IMPRESSION: 1. Bibasilar infiltrates. Correlate for atelectasis. 2. Right rib fractures.
[2016-08-30 08:11] VITALS: RESP 16
[2016-08-30] MEDS: IPRATROPIUM-ALBUTEROL 3 ML NEB INHALATION SCH ×3 (08:51→15:53)
[2016-08-30] MEDS: LIDOCAINE 5% PATCH TOPICAL SCH (10:24)
[2016-08-30] MEDS: NICOTINE 21MG/24HR PATCH TRANSDERM SCH (10:24)
[2016-08-30] MEDS: PANTOPRAZOLE 40 MG TABLET PO SCH (10:24)
[2016-08-30] MEDS: ENOXAPARIN 40 MG/0.4 ML SYRINGE SQ SCH (10:24)
[2016-08-30] MEDS: guaiFENesin 600 MG TABLET.ER PO SCH (10:24)
[2016-08-30] MEDS: AMOXIC-POT CLAV 875-125MG 1 EACH TAB PO SCH (12:26)
--- NOTE | 2016-08-30 14:03 | P.DS ---
Providers Date of admission: 08/24/16 19:58 Expected date of discharge: 08/30/16 Attending physician: Mendel Ayon Consults: Dr Magdalena Nguyen Primary care physician: Antoine Nichols - Discharge Diagnosis(es) (1) Tobacco dependence Current Visit: Yes Status: Acute (2) Ribs, multiple fractures Current Visit: Yes Status: Acute (3) Diverticulitis large intestine w/o perforation or abscess w/o bleeding Current Visit: Yes Status: Acute (4) Atherosclerosis of abdominal aorta Current Visit: Yes Status: Acute Hospital Course: Patient presented with a complaint of severe chest pain from intractable by a horse. Computed tomography scan of the chest revealed multiple displaced rib fractures. There was no pneumothorax. He is a smoker with a previous history of emphysema. Due to severe pain and pre-existing emphysema issues and the patient was admitted. The patient also had a previous history of left lower quadrant abdominal pain that had been happening for some time computed tomography scan also demonstrated possible diverticulitis. The patient was admitted for this. He underwent an high thoracic epidural for pain control which was kept in for approximately 5 days and removed. After that Lidoderm patches were placed over the fracture and oral pain medications were used for pain control. Patient was recommended and instructed to use incentive spirometry regularly. Serial x-rays were done which showed some basal fluid but no considerable worsening. He is ambulating but in some difficulty at this point. He will require home O2 and is being discharged with that. Healing discharged home to follow up in my clinic in a week's time and to also follow up with the lathe machinist. He will continue his treatment for his diverticulitis with Augmentin as recommended. He may go home on a regular diet with high fiber. He's had his colonoscopy done by another colonoscopy patient is recommended to follow up with him for that. He'll follow-up with me for the trauma follow-up in a week's time. Patient understands and detailed instructions have been given to the patient. We'll continue to use his antihypertensive medications. Is also recommended to take it easy for the next 6 weeks and not try to get back on his horses. Pertinent Studies: Computed tomography scan of the abdomen and pelvis and chest were done which revealed fracture of the ribs no pneumothorax history of emphysema and diverticulitis. Procedures: Thoracic epidural Patient Condition at Discharge: Stable Plan - Discharge Summary New Discharge Prescriptions: Amoxic-Pot Clav 875-125Mg [Augmentin 875-125] 1 tab PO Q12HR #8 tablet RX: HYDROcodone/APAP 5-325MG [Royal 5-325] 1 tab PO Q4HR PRN #35 tab PRN Reason: Pain Magnesium Hydroxide [Milk of Magnesia] 30 ml PO Q24H PRN #900 ml PRN Reason: Constipation RX: Nicotine 21Mg/24Hr Patch [Habitrol] 1 each TRANSDERM DAILY #14 patch Discharge Medication List Bisoprolol-Hctz 5-6.25 mg [Ziac 5-6.25] 1 tab PO DAILY 08/24/16 [History] Dinosaur-3 Acid Ethyl Esters [Lovaza] 2 gm PO BID 08/24/16 [History] RX: Aspirin 81 mg PO DAILY 08/24/16 [History] RX: Omeprazole 40 mg PO DAILY 08/24/16 [History] Simvastatin [Zocor] 40 mg PO DAILY 08/24/16 [History] Ubidecarenone [Co Q-10] 100 mg PO DAILY 08/24/16 [History] amLODIPine BESYLATE/BENAZEPRIL [amLODIPine BESYLATE/BENAZEPRIL 10-20 mg] 1 cap PO DAILY 08/24/16 [History] Amoxic-Pot Clav 875-125Mg [Augmentin 875-125] 1 tab PO Q12HR #8 tablet 08/29/16 [Rx] Magnesium Hydroxide [Milk of Magnesia] 30 ml PO Q24H PRN #900 ml 08/29/16 [Rx] RX: HYDROcodone/APAP 5-325MG [Royal 5-325] 1 tab PO Q4HR PRN #35 tab 08/29/16 [ Rx] RX: Nicotine 21Mg/24Hr Patch [Habitrol] 1 each TRANSDERM DAILY #14 patch [Rx] Follow up Appointment(s)/Referral(s): Mendel Ayon MD [STAFF PHYSICIAN] - 09/04/16 2:30 pm Antoine Nichols MD [Primary Care Provider] - 09/02/16 8:15 am Rommel Nguyen MD [STAFF PHYSICIAN] - 1 Week Ambulatory/Diagnostic Orders: XR chest 2V [RAD.AMB] Location: Determined By Patient Patient Instructions/Handouts: Diverticulitis (DC) Activity/Diet/Wound Care/Special Instructions: Regular diet Continue incentive spirometery Discharge Disposition: HOME SELF-CARE
--- NOTE | 2016-08-30 14:27 | P.PN ---
Mariely Travis is a 66-year-old white male patient of Dr. Nichols in the outpatient setting. Medical history significant for hypertension, hyperlipidemia, and reflux. 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 He was riding his horse at the [employer], when his horse became spooked and bucked him. He was then trampled by the horse several times. He had no loss of consciousness. 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 Patient was found to have evidence of found to have multiple rib fractures. There is a laceration consistent with horseshoe to his right thoracic spine. Patient was admitted to the surgical floor for pain management and observation. Currently, patient complains of moderate pain with coughing and deep breathing. Denies chills, fevers, shortness of breath, abdominal pain , nausea or vomiting. Patient is urinating without difficulty. Patient is passing flatus with bowel movements. Objective - Vital Signs Vital signs: Vital Signs Temp 97 F L 08/30/16 07:00 Pulse 104 H 08/30/16 12:25 Resp 16 08/30/16 07:00 BP 132/78 08/30/16 07:00 Pulse Ox 92 L 08/30/16 07:00 Intake & Output 08/29/16 08/30/16 08/30/16 18:59 06:59 18:59 Intake Total 420 480 Output Total 600 900 Balance -180 -900 480 Intake: Oral 420 480 Output: Urine 600 900 Other: Voiding Method Urinal # Voids 2 1 2 - Exam GENERAL: Patient is awake and alert, sitting up in a chair, in no acute distress. HEAD: Atraumatic, normocephalic. EYES: Pupils equal round and reactive to light, extraocular movements intact, sclera anicteric, conjunctiva are normal. ENT: Moist mucous membranes. NECK: Normal range of motion, supple without lymphadenopathy or JVD LUNGS: Breath sounds with diminished with coarse rhonchi and faint expiratory wheezing throughout lung eugene. Cough loose, productive HEART: Regular rate and rhythm without murmurs, rubs or gallops. S1S2 Normal ABDOMEN: Soft, nontender, normoactive bowel sounds. No guarding, no rebound. No masses appreciated. EXTREMITIES: Normal range of motion, no pitting or edema. No clubbing or cyanosis. NEUROLOGICAL: Cranial nerves II through XII grossly intact. Normal speech. PSYCH: Normal mood, normal affect. SKIN: Warm, Dry, normal turgor, no rashes. - Labs CBC & Chem 7: 08/28/16 07:21 08/28/16 07:21 Assessment and Plan Plan: Impression and plan: Multiple rib fractures due to trauma: He is currently on the trauma service under Dr. Ayon's care. Epidural has been discontinued. COPD with abnormal chest x-ray: Pulmonology has been consulted, he is currently on Unasyn, I will add DuoNeb updrafts, guaifenesin at this time, he has an incentive spirometer to bedside. Hypertension: His blood pressure is well controlled, we will hold his amlodipine and Ziac at this time. Questionable diverticulitis. Continue antibiotics. GERD/GI prophylaxis: I will restart his pantoprazole. hyperlipidemia: Due to his muscle trauma, We will hold his simvastatin and omega -3 fatty acids at this time. DVT prophylaxis: He is currently on Lovenox From a medical standpoint, patient is stable for discharge when cleared by surgery. Patient will follow-up with Dr. Ross in the outpatient setting. The above impression and plan have been discussed and directed by Dr. Ross. Danay SOLANO acting as scribe for Dr. Ross.
[2016-08-30 15:27] VITALS: BP 129/73; TEMP 98
[2016-08-30 16:04] VITALS: PULSE 98
--- NOTE | 2016-08-30 16:48 | P.PN ---
Subjective This is a very pleasant 66-year-old male patient with known history of COPD came into the hospital after being thrown off a horse. The patient was riding a horse in an indoor location where he was thrown off and he then got trampled by the horse, mostly involving his right upper back.. No reported loss of consciousness. No headaches. No seizure activity. He did suffer right chest trauma and right-sided fractures and he was having significant chest wall pain at time of admission. He was further investigated by x-ray imaging and was found to have right-sided rib fractures. The CAT scan of the chest also showed evidence of emphysema with a very tiny right-sided pleural effusion otherwise no other abnormalities were noted. The patient was having considerable amount of pain and for that reason Dr. Welch was consulted and the patient had a thoracic epidural catheter insertion for pain control. He also has had issues with constipation and a CAT scan of the abdomen showed questionable changes of diverticulitis and for that reason the patient was started on antibiotics and general surgeries on the case. The patient is seen again today 08/30/2016 on the surgical floor. He is currently sitting up in the chair at the bedside. His epidural catheter had been removed. His pain is well managed. He denies any worsening shortness of breath. He still has right-sided chest wall pain with cough and movement. Today's chest x-ray does reveal increased atelectasis in the right lung base, stable left lung. The patient has had increased activity and is working harder with his incentive spirometer. Currently pulling approximately 1250 MLS. He is aware of the importance of cough and deep breathing exercises. He has remained afebrile. Maintaining O2 saturations in the low 90s on room air. Objective - Vital Signs Vital signs: Vital Signs Temp 98.0 F 08/30/16 15:00 Pulse 98 08/30/16 16:04 Resp 16 08/30/16 15:00 BP 129/73 08/30/16 15:00 Pulse Ox 91 L 08/30/16 15:00 Intake & Output 08/29/16 08/30/16 08/30/16 18:59 06:59 18:59 Intake Total 420 480 Output Total 600 900 Balance -180 -900 480 Intake: Oral 420 480 Output: Urine 600 900 Other: Voiding Method Urinal Urinal # Voids 2 1 2 - Exam GENERAL EXAM: Alert, fairly comfortable in no apparent distress. HEAD: Normocephalic. EYES: Normal reaction of pupils, equal size. NOSE: Clear with pink turbinates. THROAT: No erythema or exudates. NECK: No masses, no JVD. CHEST: No chest wall deformity. LUNGS: Equal air entry with no crackles, wheeze, rhonchi or dullness. CVS: S1 and S2 normal with no use scattered rhonchi, crackles in the posterior bases, diminished.. ABDOMEN: No hepatosplenomegaly, normal bowel sounds, no guarding or rigidity. SPINE: No scoliosis or deformity due to epidural catheter secured in place. SKIN: No rashes CENTRAL NERVOUS SYSTEM: No focal deficits, tone is normal in all 4 extremities. Extremities: There is no peripheral edema. No clubbing, no cyanosis. Pulses are intact. - Labs CBC & Chem 7: 08/28/16 07:21 08/28/16 07:21 Assessment and Plan Plan: Impression: #1 Right-sided rib fractures, traumatic in nature from fall from horse and being trampled with secondary musculoskeletal chest wall pain. #2 Small bibasilar right-sided greater than left pleural effusion/atelectasis. #3 Acute exacerbation of chronic obstructive pulmonary disease with centrilobular emphysema based on computed tomography scan findings. #4 Chronic and ongoing tobacco dependence. #5 Diverticulosis with abdominal pain and suspected diverticulitis. Antibiotics per general surgery. #6 Hypertension. #7 Hyperlipidemia. Plan: The patient was seen and evaluated by Dr. Amos. Today's chest x-ray was reviewed. There is evidence of COPD, some bibasilar atelectasis/infiltrates right greater than left. No pneumothorax. The patient is again encouraged regarding the increased use of the incentive spirometer and cough and deep breathing exercises. He is also educated regarding the importance of complete smoking cessation. A NicoDerm patches in place. We will increase his activity as tolerated. He would also benefit from complete pulmonary function testing once his ribs have healed and he is back to his baseline to determine the severity of his COPD and make recommendations regarding maintenance medications. Upon discharge she'll follow-up with Dr. Nguyen in our office in 1 week's time we'll repeat his chest x-ray done. He is encouraged to call sooner with any recurrence of symptoms or other questions or concerns.
== END 2016-08-30 18:35 | disposition home or self-care (01) | DRG 184 ==
LOC: EC 18:21 → 3SUR 19:58
PROVIDERS: ADMIT Surgery; ATTEND Surgery
PROC: 00HU33Z Insertion of Infusion Device into Spinal Canal, Percutaneous Approach (ICD-10-PCS; principal; 2016-08-24)
DX: S22.41XA Multiple fractures of ribs, right side, initial encounter for closed fracture (principal); K57.32 Diverticulitis of large intestine without perforation or abscess without bleeding; J44.1 Chronic obstructive pulmonary disease with (acute) exacerbation; J43.2 Centrilobular emphysema; S21.211A Laceration without foreign body of right back wall of thorax without penetration into thoracic cavity, initial encounter; I10 Essential (primary) hypertension; K59.09 Other constipation; I70.0 Atherosclerosis of aorta; F17.210 Nicotine dependence, cigarettes, uncomplicated; K21.9 Gastro-esophageal reflux disease without esophagitis; E78.5 Hyperlipidemia, unspecified; Y93.52 Activity, horseback riding; V80.010A Animal-rider injured by fall from or being thrown from horse in noncollision accident, initial encounter; Z79.82 Long term (current) use of aspirin; Z79.899 Other long term (current) drug therapy; Z82.49 Family history of ischemic heart disease and other diseases of the circulatory system
CPT/HCPCS: 36415; 71010; 71260; 72170; 74177; 80053; 80306; 80320; 81001; 82150; 82550; 82553; 83690; 84484; 85025; 85610; 85730; 86850; 86900; 86901; 90471; 90715; 93005; 94640; 94667; 94668; 94760; 96361; 96374; 96375; 96376; 99285

== ENCOUNTER → 2018-10-23 | Outpatient (CLI) | payer MEDICARE, OTHER ==
--- NOTE | 2018-10-23 18:40 | CTL ---
EXAMINATION TYPE: CT Low Dose Lung DATE OF EXAM ORDERED: 10/23/2018 HISTORY: . Lung cancer screening CT DLP: 113.[address] CTDI: 3.3 mGy Automated exposure control for dose reduction was used. SCREENING VISIT: Subsequent COMPARISON: CT chest 07/02/2016 TECHNIQUE: Low dose computed tomography scan was performed through the chest at 1 mm thick sections a nd reconstructed images in the coronal plane at [address] DIAGNOSTIC QUALITY: Satisfactory FINDINGS: LUNG NODULES: Present, detailed below: There is a benign calcification in the left infrahilar region with a transverse dimension 0.7 cm. LUNGS: COPD: Severity: Moderate Fibrosis: Severity: None Lymph nodes: None Other findings: No RIGHT PLEURAL SPACE: Effusion: None Calcification: None Thickening: None Pneumothorax: None LEFT PLEURAL SPACE: Effusion: None Calcification: None Thickening: None Pneumothorax: None HEART: Heart Size: Normal Coronary calcification: Severe Pericardial effusion: None OTHER FINDINGS: Upper abdomen: Some punctate nonobstructing renal stones may be present. There is a large cyst on the superior anterior left kidney. Bony thorax: Scoliosis is present with right rib fractures are evident at the tip of the scapula leve l. Supraclavicular region: Normal Other: Ascending thoracic aorta at the level the main pulmonary artery is 3.8 cm. The main pulmonary artery the bifurcation is 2.7 cm. IMPRESSION: 1. Benign findings. No suspicious lung findings. 2. Emphysematous changes FOLLOW UP CT CHEST RECOMMENDATION: Low-dose CT chest [address] LUNG RAD: Lung-Rad 2 Benign Appearance or Behavior
== END | disposition home or self-care (01) ==
LOC: RADCTMAIN 12:12
PROVIDERS: ATTEND Family Medicine
DX: Z12.2 Encounter for screening for malignant neoplasm of respiratory organs (principal); J43.9 Emphysema, unspecified; Z87.891 Personal history of nicotine dependence

== ENCOUNTER 2020-05-31 19:15 | Emergency (ER) | payer MEDICARE, OTHER ==
[2020-05-31 19:23] VITALS: BP 137/72; PULSE 90; RESP 18; TEMP 97.9
[2020-05-31] MEDS ORDERED: HYDROcodone/APAP 5-325MG 1 EACH TAB PO STA (19:55)
--- NOTE | 2020-05-31 20:17 | XR ---
EXAMINATION TYPE: XR shoulder complete RT DATE OF EXAM: 05/31/2020 COMPARISON: NONE HISTORY: Shoulder pain TECHNIQUE: 3 views FINDINGS: I see no fracture nor dislocation. Joint spaces are fairly normal. There are no pathologic calcifications. There are old right upper rib fractures. IMPRESSION: No acute abnormality of the right shoulder. Multiple old right-sided rib fractures.
[2020-05-31] MEDS ORDERED: ACET/COD 300 MG/30 MG STARTER PACK 6 TAB BTL PO STA (20:30)
--- NOTE | 2020-05-31 20:40 | ED ---
General Adult HPI - General Chief complaint: Extremity Injury, Lower Stated complaint: fall/shoulder pain Time Seen by Provider: 05/31/20 19:46 Source: patient Mode of arrival: ambulatory Limitations: no limitations - History of Present Illness Initial comments: 70-year-old male presenting to the emergency department with a chief complaint of right shoulder pain. Patient states yesterday he was getting off a truck, lost balance and fell on the ground, particularly on his right shoulder. Patient reports not he continues to have pain and has limited range of motion particularly with abduction. Denies any numbness or tingling. Denies taking medication to alleviate his symptoms. He does report mild injury to the head but denies loss of consciousness. Denies blood thinners. - Related Data Home Medications Medication Instructions Recorded Confirmed Aspirin 81 mg PO DAILY 08/24/16 08/24/16 Bisoprolol-Hctz 5-6.25 mg [Ziac 1 tab PO DAILY 08/24/16 08/24/16 5-6.25] Mercer-3 Acid Ethyl Esters [Lovaza] 2 gm PO BID 08/24/16 08/24/16 Omeprazole 40 mg PO DAILY 08/24/16 08/24/16 Simvastatin [Zocor] 40 mg PO DAILY 08/24/16 08/24/16 Ubidecarenone [Co Q-10] 100 mg PO DAILY 08/24/16 08/24/16 amLODIPine BESYLATE/BENAZEPRIL 1 cap PO DAILY 08/24/16 08/24/16 [amLODIPine BESYLATE/BENAZEPRIL 10-20 mg] Previous Rx's Medication Instructions Recorded Amoxic-Pot Clav 875-125Mg 1 tab PO Q12HR #8 tablet 08/29/16 [Augmentin 875-125] HYDROcodone/APAP 5-325MG [Combs 1 tab PO Q4HR PRN #35 tab 08/29/16 5-325] Magnesium Hydroxide [Milk of 30 ml PO Q24H PRN #900 ml 08/29/16 Magnesia] Nicotine 21Mg/24Hr Patch [Habitrol] 1 each TRANSDERM DAILY #14 patch 08/29/16 Allergies Allergy/AdvReac Type Severity Reaction Status Date / Time No Known Allergies Allergy Verified 05/31/20 19:23 Review of Systems ROS Statement: Those systems with pertinent positive or pertinent negative responses have been documented in the HPI. ROS Other: All systems not noted in ROS Statement are negative. Past Medical History Past Medical History: GERD/Reflux, Hyperlipidemia, Hypertension Additional Past Medical History / Comment(s): Hypertension, COPD, hyperlipidemia, GERD, diverticulosis, History of Any Multi-Drug Resistant Organisms: None Reported Past Surgical History: Orthopedic Surgery, Tonsillectomy Additional Past Surgical History / Comment(s): right ankle surgery, Past Anesthesia/Blood Transfusion Reactions: No Reported Reaction Past Psychological History: No Psychological Hx Reported Smoking Status: Current every day smoker Past Alcohol Use History: Occasional Past Drug Use History: None Reported - Past Family History Mother Family Medical History: Coronary Artery Disease (CAD) Father Family Medical History: Cancer General Exam Limitations: no limitations General appearance: alert, in no apparent distress Head exam: Present: atraumatic, normocephalic, normal inspection. Absent: other (Negative Hightower sign, raccoon eyes, hemotympanum.) Eye exam: Present: normal appearance, PERRL, EOMI Pupils: Present: normal accommodation ENT exam: Present: normal exam, normal oropharynx, mucous membranes moist, TM's normal bilaterally, normal external ear exam Neck exam: Present: normal inspection, full ROM. Absent: tenderness Respiratory exam: Present: normal lung sounds bilaterally. Absent: respiratory distress, wheezes, rales Cardiovascular Exam: Present: regular rate, normal rhythm, normal heart sounds Extremities exam: Present: normal inspection, tenderness (Anterior deltoid tenderness), normal capillary refill, other (+2 ulnar and radial pulses bilaterally. Sensation intact in bilateral upper extremities.). Absent: full ROM (Limited range of motion with abduction in the right shoulder), pedal edema, joint swelling, calf tenderness Back exam: Present: normal inspection, full ROM. Absent: tenderness, CVA tenderness (R), CVA tenderness (L) Neurological exam: Present: alert, oriented X3, normal gait Psychiatric exam: Present: normal affect, normal mood Skin exam: Present: warm, dry, intact, normal color Course Vital Signs 05/31/20 19:18 Temperature 97.9 F Pulse Rate 90 Respiratory 18 Rate Blood Pressure 137/72 O2 Sat by Pulse 98 Oximetry Medical Decision Making - Medical Decision Making 70-year-old male presenting to the emergency department with a chief complaint of right shoulder pain. On physical examination, patient has anterior deltoid tenderness and limited range of motion with particular with abduction of the right upper extremity. X-ray shows no signs of fracture dislocations. I suspect the injury to the rotator cuff muscles. Patient advised to follow-up with camouflage specialist. He was given analgesia and emergency department. Patient will be discharged Tylenol 3 starter pack. Return parameters discussed the patient was understanding and agreeable. Case discussed with physician. Disposition Clinical Impression: Right shoulder injury, Rotator cuff injury Disposition: HOME SELF-CARE Condition: Stable Instructions (If sedation given, give patient instructions): Rotator Cuff Injury (ED) Additional Instructions: Follow with camouflage specialist. Alternate between Tylenol and Motrin for pain control. Return to emergency department if symptoms worsen. Is patient prescribed a controlled substance at d/c from ED?: No Referrals: Antoine Nichols MD [Primary Care Provider] - 1-2 days Time of Disposition: 20:40
== END 2020-05-31 20:45 | disposition home or self-care (01) ==
LOC: EC 19:15
DX: S46.001A Unspecified injury of muscle(s) and tendon(s) of the rotator cuff of right shoulder, initial encounter (principal); K21.9 Gastro-esophageal reflux disease without esophagitis; I10 Essential (primary) hypertension; E78.5 Hyperlipidemia, unspecified; F17.200 Nicotine dependence, unspecified, uncomplicated; Z79.899 Other long term (current) drug therapy; W17.89XA Other fall from one level to another, initial encounter; Y93.89 Activity, other specified; Y92.89 Other specified places as the place of occurrence of the external cause
CPT/HCPCS: 99283

== ENCOUNTER → 2020-06-27 | Outpatient (CLI) | payer MEDICARE, OTHER ==
--- NOTE | 2020-06-27 15:00 | MR ---
"EXAMINATION TYPE: MR shoulder RT wo con DATE OF EXAM: 06/27/2020 COMPARISON: Right shoulder x-rays May 31, 2020 HISTORY: Right shoulder pain, recent fall injury TECHNIQUE: Multiplanar, multisequence imaging of the right shoulder is performed without contrast. FINDINGS: Rotator Cuff: Complete full-thickness retracted rotator cuff tear of the supraspinatus tendon with re traction to the level of the acromioclavicular joint coronal image 14 and of the infraspinatus tendon coronal image 22 similar level. There is moderate generalized atrophy of the infraspinatus tendon an d muscle bulk. Less prominent atrophy of the supraspinatus muscle. Teres minor muscle intact. Surroun ding fluid supraspinatus and infraspinatus tendons noted. Subscapularis tendon is completely torn with tendon retraction or stump noted axial image 9. Adjacent surrounding edema extends into the deep tissue along the scapula. Acromioclavicular Joint: Moderate narrowing and mild capsular hypertrophy. Distal acromion morphology unremarkable. Moderate edematous changes in the acromion anteriorly. Glenohumeral Joint: High positioning humeral head. Labrum: The labrum appears grossly intact given limitation of non-arthrogram study. Biceps Tendon: The long head of biceps is dislocated anteromedially with some thickening and increase d signal intracapsular portion. Bone marrow signal: No focal abnormal marrow signal is appreciated. Other: No additional significant abnormality is appreciated. IMPRESSION: 1. Full-thickness retracted tears of the supraspinatus and infraspinatus tendons. There is associated instability with high riding humeral head. Moderate generalized atrophy of the infraspinatus muscle noted. 2. Full-thickness retracted tear of the subscapularis tendon with associated anteromedial long head o f biceps tendon dislocation. A Yellow level critical message alert has been initiated for Ricky Hernandez MD via the Tape TV 36 0 | Critical Results System on 06/27/2020 2:58 PM. This message alert has been sent to Ricky Hernandez MD via the preferences provided by the clinician for the receipt of Radiology Critical Findings. [facility] ID [id number]."
== END | disposition home or self-care (01) ==
LOC: RADMRIMAIN 13:13
PROVIDERS: ATTEND Orthopaedic Surgery
DX: M75.121 Complete rotator cuff tear or rupture of right shoulder, not specified as traumatic (principal); S43.004A Unspecified dislocation of right shoulder joint, initial encounter; M62.511 Muscle wasting and atrophy, not elsewhere classified, right shoulder

== ENCOUNTER → 2020-07-24 | Outpatient (CLI) | payer MEDICARE, OTHER ==
[2020-07-24 14:45] LABS: Basophils # (A) 0.1 k/uL (0-0.2); Basophils % (A) 1 %; Eosinophils # (A) 0.1 k/uL (0-0.7); Eosinophils % (A) 1 %; HCT 48.2 % (39.0-53.0); HGB 16.2 gm/dL (13.0-17.5); Lymphocytes # (A) 2.6 k/uL (1.0-4.8); Lymphocytes % (A) 18 %; MCH 31.4 pg (25.0-35.0); MCHC 33.7 g/dL (31.0-37.0); MCV 93.1 fL (80.0-100.0); Monocytes # (A) 0.9 k/uL (0-1.0); Monocytes % (A) 6 %; Neutrophils # (A) 10.6 k/uL (1.3-7.7); Neutrophils % (A) 72 %; Platelet Count 120 k/uL (150-450); RBC 5.18 m/uL (4.30-5.90); RDW 13.7 % (11.5-15.5); WBC 14.7 k/uL (3.8-10.6)
[2020-07-24 14:56] LABS: Prothrombin Time 10.3 sec (9.0-12.0)
[2020-07-24 15:00] LABS: Potassium 3.9 mmol/L (3.5-5.1)
== END | disposition home or self-care (01) ==
LOC: LABPAT 12:42
PROVIDERS: ATTEND Orthopaedic Surgery
DX: Z01.818 Encounter for other preprocedural examination (principal); Z01.812 Encounter for preprocedural laboratory examination; M75.41 Impingement syndrome of right shoulder
CPT/HCPCS: 80051; 85025; 85610; 87070; 93005

== ENCOUNTER → 2020-07-31 | Outpatient (CLI) | payer MEDICARE, OTHER ==
[2020-07-31 08:57] LABS: Basophils # (A) 0.1 k/uL (0-0.2); Basophils % (A) 1 %; Eosinophils # (A) 0.2 k/uL (0-0.7); Eosinophils % (A) 2 %; HGB 16.3 gm/dL (13.0-17.5); Lymphocytes % (A) 26 %; MCH 31.3 pg (25.0-35.0); MCHC 33.9 g/dL (31.0-37.0); MCV 92.5 fL (80.0-100.0); Mean Platelet Volume 8.1; Monocytes # (A) 0.6 k/uL (0-1.0); Monocytes % (A) 7 %; Neutrophils # (A) 4.8 k/uL (1.3-7.7); Neutrophils % (A) 61 %; Platelet Count 237 k/uL (150-450); RDW 13.4 % (11.5-15.5); WBC 7.9 k/uL (3.8-10.6)
== END | disposition home or self-care (01) ==
LOC: LABPAT 08:06
PROVIDERS: ATTEND Orthopaedic Surgery
DX: Z01.818 Encounter for other preprocedural examination (principal)
CPT/HCPCS: 36415; 85025

== ENCOUNTER 2020-08-01 06:12 | Inpatient (IN) | payer MEDICARE, OTHER ==
[2020-07-25 18:01] VITALS: BMI 26.9
--- NOTE | 2020-07-31 09:32 | HP ---
HISTORY AND PHYSICAL CHIEF COMPLAINT: Right shoulder pain and weakness. 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 He fell off his truck, falling 4 feet, landing on his right side. He has had significant weakness and pain ever since. He is unable to raise his arm over his head. He rates his pain 6 to 8/10 intermittently. He is having night symptoms. PAST MEDICAL HISTORY: Significant for COPD, hypertension, and arthritis. PAST SURGICAL HISTORY: Negative. CURRENT MEDICATIONS: 1. Amlodipine. 2. Aspirin. 3. Omeprazole. 4. Simvastatin. 5. Trelegy. 6. Ziac. ALLERGIES: He denies drug allergies. FAMILY HISTORY: Significant for lymphoma. SOCIAL HISTORY: Significant for 1 pack per day tobacco use. REVIEW OF SYSTEMS: Sixteen-point review of systems otherwise reviewed and is noncontributory. PHYSICAL EXAMINATION: On examination, the patient is approximately 5 feet, 8 inches, 180 pounds of mesomorphic habitus. HEENT exam is nonfocal. Neck is supple. On examination of the right shoulder, he is tender about the anterior subacromial space and the anterior glenohumeral joint. He has moderate subacromial crepitus. Active range of motion forward elevation 20 degrees, external rotation with arm at side 50 degrees, internal rotation to L3. Passively I am able to forward elevate him to 110 degrees. Motor strength is 3/5 for external rotation and abduction. Impingement test, Neer test and Speed test are positive. His distal neurovascular exam appears intact in the right upper extremity. MRI report right shoulder 06/27/2020, by report shows evidence of a large retracted rotator cuff tear with significant muscular atrophy involving supraspinatus/infraspinatus/subscapularis. IMPRESSION: 1. Acute on chronic large right rotator cuff tear. 2. Chronic obstructive pulmonary disease. RECOMMENDATIONS: I talked to the patient and his at length regarding his condition and treatment options. After thorough discussion, he notes he is quite limited with weakness and pain and opts to proceed with surgery. Operative options were discussed to include attempted repair versus reverse total shoulder arthroplasty. With his history of long- term steroid use for COPD in addition to his age and MRI findings, he opts to proceed with reverse total shoulder arthroplasty. Risks and benefits were discussed at length in layman's terms. MMODL / IJN: [id number] /
[~2020-08-01 06:12] MED LIST: ACETAMINOPHEN TAB 500 MG TAB PO PRN; DEXAMETHASONE SOD PHOSPHATE 4 MG/ML 1 ML VIAL IV ONE; LIDOCAINE 1% (10MG/ML) FOR IV START INTRADERMA PRN; MELOXICAM 7.5 MG TAB PO PRN; MIDAZOLAM 2 MG/2 ML VIAL IV PRN; ONDANSETRON 4 MG/2 ML VIAL IVP ONE; TRANEXAMIC ACID 1,000 MG in SODIUM CHLORIDE 0.9% 100 ML IVPB PRN
[2020-08-01] MEDS: LACTATED RINGERS 1,000 ML IV SCH (07:11)
[2020-08-01] MEDS ORDERED: ROCURONIUM 10 MG/ML (10 ML VIAL) IV ONE (07:55)
[2020-08-01] MEDS ORDERED: TRANEXAMIC ACID 1,000 MG/10 ML VIAL ONE (07:55)
[2020-08-01] MEDS ORDERED: HYDROmorphone (PF) 1 MG/ML ONE (07:55)
[2020-08-01] MEDS ORDERED: fentaNYL (PF) 50 MCG/ML 2 ML AMP ONE (07:55)
[2020-08-01] MEDS ORDERED: MIDAZOLAM 2 MG/2 ML VIAL ONE (07:55)
[2020-08-01] MEDS ORDERED: NEOSTIGMINE 1 MG/ML 10 ML VIAL ONE (07:55)
[2020-08-01] MEDS ORDERED: GLYCOPYRROLATE 0.2 MG/ML 2 ML VIAL ONE (07:55)
[2020-08-01] MEDS ORDERED: SUCCINYLCHOLINE CHLORIDE 100 MG/5 ML SYR IV ONE (07:55)
[2020-08-01] MEDS ORDERED: PROPOFOL 10 MG/ML 20 ML VIAL IV ONE (07:55)
[2020-08-01] MEDS ORDERED: LIDOCAINE 1% INJ 10MG/ML (20 ML MDV) ONE (07:55)
[2020-08-01] MEDS ORDERED: SODIUM CHLORIDE 0.9% 100 ML BAG ONE (07:55)
[2020-08-01] MEDS ORDERED: NON FORMULARY DRUG (Fluticasone/Umeclidin/Vilanter [Trelegy Ellipta 100-62.5-25] 1 EACH Bl INHALATION SCH (09:00)
[2020-08-01] MEDS ORDERED: LACTATED RINGERS 1,000 ML IV ONE (09:42)
[2020-08-01] MEDS ORDERED: SENNOSIDES-DOCUSATE SODIUM 1 EACH TAB PO PRN (09:49)
[2020-08-01] MEDS ORDERED: ONDANSETRON 4 MG/2 ML VIAL IVP PRN (09:49)
[2020-08-01] MEDS ORDERED: HYDROcodone/APAP 5-325MG 1 EACH TAB PO PRN (09:49)
--- NOTE | 2020-08-01 10:02 | P.OP ---
Date of Procedure: 08/01/20 Preoperative Diagnosis: Acute on chronic large right rotator cuff tear/rotator cuff arthropathy Postoperative Diagnosis: Same Procedure(s) Performed: Right reverse total shoulder arthroplasty Implants: Depuy Delta Xtend size 10 press-fit humeral stem with size 2 eccentric epiphysis, 38+15 articular surface, 38 mm +10 base plate with standard 38 mm glenosphere. Anesthesia: GETA Surgeon: Ricky Hernandez [employer] Counter Sales Person #1: Joseph Odonnell Estimated Blood Loss (ml): 300 Pathology: other (Humeral head) Condition: stable Disposition: PACU Indications for Procedure: The patient's a 70-year-old male who presents with progressive right shoulder pain and weakness after a previous fall. Upon evaluation he was noted have a large, retracted rotator cuff tear with arthropathy. A discussion of the risks and benefits of operative intervention versus continued conservative measures was made with the patient and his family. He opted to proceed. Operative options to include attempted repair versus reverse total shoulder arthroplasty were discussed. He opted to proceed with reverse total shoulder arthroplasty. Specific risks of this procedure to include infection, neurovascular injury, development of blood clots, possible fracture, possible instability and need for subsequent procedures was discussed. Informed consent was obtained. Operative Findings: As below Description of Procedure: The patient was brought to the operating room, and after induction of general anesthesia was placed in a beachchair position. The bony prominences were appropriately padded. I examined the right shoulder. There was moderate lack of passive forward elevation and external rotation. The right upper extremity was prepped and draped in normal fashion. The bony outlines the coracoid process, distal clavicle, and acromion were outlined with a skin marker. A pulse centimeter deltopectoral incision was made lateral to the coracoid process. Skin was incised sharply. Subcutaneous tissues were divided bluntly. Electrocautery was used for hemostasis. The cephalic vein was identified and gently retracted laterally with the deltoid. The deltopectoral was bluntly developed. Subdeltoid adhesions were then released. The self-retaining retractor was placed. The conjoined tendon was retracted medially and the deltoid laterally. The biceps was identified. Its sheath was opened. A biceps tenotomy was performed along the remaining tendon did retract distally. A large retracted rotator cuff tear involving the supraspinatus, infraspinatus interiors minor was noted. A portion of the upper subscapularis was released and tagged with #2 Ethibond suture. The head was then exposed. The shoulder was dislocated. A starting hole was made in line with the humeral shaft. The canal was reamed by hand up to size 10. There was good distal chatter. The cutting guide was then placed. I planned on 20 of retroversion. The humeral head cut was then made. The bone was removed in one fragment. Residual inferomedial osteophytes were removed flush with the [place] cortical bone. Attention was then paid towards preparing the glenoid. An anterior and posterior retractors placed. The labrum was released from the 12-6 o'clock position. Remaining biceps was removed as well. A guidepin was placed in the inferior aspect of the glenoid with the guide slightly tilting inferior. The reamer was used down to a bleeding bony surface. The central peg hole was drilled. The standard +10 baseplate was inserted with good purchase. Inferior, superior, and posterior locking screws the appropriate length were placed. Good purchase was obtained. The 38 mm glenosphere was inserted over a guidewire. This was fully seated. Care was taken to avoid any soft tissue interposition. Attention was then paid towards preparing the proximal humerus. The appropriate broach was placed and 20 of retroversion and was fully seated. An eccentric size 2 epiphyseal reamer was utilized. A size 10 stem with a size 2 epiphysis was placed and 20 of retroversion. Trial reduction was obtained with a 38 mm + 15 articular surface. The shoulder was taken through range of motion. He was felt to be stable in flexion and extension with internal and external rotation. I felt there was adequate latter-day of soft tissue tension judging off the conjoined tendon. The shoulder was gently dislocated. The trial components were then removed. The final size 10 press-fit stem along with a size 2 epiphysis was fully seated. There was good rotational stability. The 38 mm + 15 articular surface was impacted. The shoulder again was gently reduced and taken through range of motion. Again it was felt to be stable in all planes. Pulsatile lavage was utilized. The subscapularis was a attached with #2 Ethibond suture. The deltopectoral interval was closed with interrupted 2-0 Vicryl sutures. The skin was reapproximated with 3-0 subcuticular Prolene suture. Steri-Strips were applied. A sterile dressing was applied. A sling was placed. The patient was awoken from general anesthesia and transferred to recovery room in good condition. Blood loss was estimated at 300 mL. No complications were incurred. Sponge and needle counts were correct at the end the case. Anjum CHAVEZ assisted during the major components of the case to include exposure, glenoid and humeral preparation, implantation, and closure.
[2020-08-01] MEDS: HYDROmorphone 0.5 MG/0.5 ML SYRINGE IVP PRN ×4 (10:10→10:51)
[2020-08-01] MEDS: fentaNYL (PF) 50 MCG/ML 2 ML AMP IVP ONE ×2 (11:05→11:38)
[2020-08-01] MEDS ORDERED: HYDROmorphone 0.5 MG/0.5 ML SYRINGE IVP ONE (12:10)
--- NOTE | 2020-08-01 12:57 | XR ---
EXAMINATION TYPE: XR shoulder limited RT DATE OF EXAM: 08/01/2020 COMPARISON: NONE HISTORY: 70-year-old male status post reverse right TSA TECHNIQUE: Single AP view FINDINGS: Prominent soft tissue air related to recent operation. A reverse right shoulder arthroplasty is demon strated. Clinically severe and humeral stem components appear appropriately positioned. IMPRESSION: Reverse right TSA with recent postsurgical changes. Alignment appears satisfactory.
[2020-08-01] MEDS ORDERED: NON FORMULARY DRUG (Vit C/E/Zn/Coppr/Lutein/Zeaxan [Preservision Areds 2 Softgel] 1 EACH C PO SCH (13:30)
[2020-08-01] MEDS ORDERED: IPRATROPIUM-ALBUTEROL 3 ML NEB INHALATION PRN (13:48)
--- NOTE | 2020-08-01 13:52 | P.CONS ---
History of Present Illness - Reason for Consult Consult date: 08/01/20 Medical management gastroesophageal reflux disease, hypertension nicotine d Requesting physician: Ricky Hernandez - Chief Complaint Status post right reverse total shoulder arthroplasty - History of Present Illness This is 70-year-old gentleman sustained acute on chronic large right rotator cuff tear secondary to fall, status post right reverse total shoulder arthroplasty. Apparently patient lost his balance while attempting to get off of truck ,fell onto cement, landing on his to his right shoulder. Tolerated procedure well. EBL 300. Patient has just arrived to the floor from recovery room. Denies chest pain, palpitations or shortness of breath. Pain controlled. Vital signs stable, systolic blood pressure in the low 100s currently. Maintaining O2 sats in the 90s on 2 L nasal cannula. Afebrile. Review of Systems ROS Statement: Those systems with pertinent positive or pertinent negative responses have been documented in the HPI. ROS Other: All systems not noted in ROS Statement are negative. Past Medical History Past Medical History: GERD/Reflux, Hyperlipidemia, Hypertension Additional Past Medical History / Comment(s): Hypertension, COPD, hyperlipidemia, GERD, diverticulosis, History of Any Multi-Drug Resistant Organisms: None Reported Past Surgical History: Orthopedic Surgery, Tonsillectomy Additional Past Surgical History / Comment(s): right ankle surgery, Past Anesthesia/Blood Transfusion Reactions: No Reported Reaction Past Psychological History: No Psychological Hx Reported Smoking Status: Current every day smoker Past Alcohol Use History: Occasional Additional Past Alcohol Use History / Comment(s): Smoking 1 ppd since age 17 Past Drug Use History: None Reported - Past Family History Mother Family Medical History: Coronary Artery Disease (CAD) Father Family Medical History: Cancer Additional Family Medical History / Comment(s): lymphoma Medications and Allergies Home Medications Medication Instructions Recorded Confirmed Type Aspirin 81 mg PO DAILY 08/24/16 08/01/20 History Bisoprolol-Hctz 5-6.25 mg [Ziac 1 tab PO DAILY 08/24/16 08/01/20 History 5-6.25] Simvastatin [Zocor] 40 mg PO HS 08/24/16 08/01/20 History Ubidecarenone [Co Q-10] 200 mg PO DAILY 08/24/16 08/01/20 History amLODIPine BESYLATE/BENAZEPRIL 1 cap PO DAILY 08/24/16 08/01/20 History [amLODIPine BESYLATE/BENAZEPRIL 10-20 mg] Acetaminophen [Tylenol Arthritis] 650 mg PO DIRECTED PRN 07/25/20 08/01/20 History Fluticasone/Umeclidin/Vilanter 1 each INHALATION DAILY 07/25/20 08/01/20 History [Trelegy Ellipta 100-62.5-25] Ibuprofen [Motrin Ib] 800 mg PO Q8H PRN 07/25/20 07/25/20 History Krill/[place]-3/Dha/Epa/Lipids 1 each PO DAILY 07/25/20 08/01/20 History [Krill Oil 350 mg Softgel] Omeprazole Magnesium [PriLOSEC OTC] 40 mg PO DAILY 07/25/20 08/01/20 History Vit C/E/Zn/Coppr/Lutein/Zeaxan 1 each PO DAILY 07/25/20 08/01/20 History [Preservision Areds 2 Softgel] Allergies Allergy/AdvReac Type Severity Reaction Status Date / Time No Known Allergies Allergy Verified 08/01/20 06:52 Physical Exam Vitals: Vital Signs Temp Pulse Resp BP Pulse Ox 08/01/20 13:03 98.0 F 80 16 106/66 93 L 08/01/20 12:18 93 16 116/62 96 08/01/20 11:42 87 16 114/65 92 L 08/01/20 11:27 85 16 117/70 92 L 08/01/20 11:12 84 16 130/75 94 L 08/01/20 10:57 82 16 129/73 93 L 08/01/20 10:42 83 14 121/70 93 L 08/01/20 10:27 87 16 122/71 94 L 08/01/20 10:12 85 16 136/79 94 L 08/01/20 09:57 97.6 F 87 13 144/77 97 08/01/20 06:49 97.0 F L 86 16 108/63 93 L Intake and Output 07/31/20 08/01/20 08/01/20 22:59 06:59 14:59 Intake Total 2049 Output Total 300 Balance 1750 Intake: IV 2049 Output: Estimated Blood Loss 300 Other: Weight 78.9 kg PHYSICAL EXAM: VITAL SIGNS: [As above] GENERAL: Sitting up in bed, alert, no acute distress HEENT: Normocephalic, Conjunctivae normal. eyes normal. NECK: No JVD. No thyroid enlargement. No LNs CARDIOVASCULAR: S1, S2 regular. No murmur RESPIRATION: Equal air entry with Breath sounds diminished in the bases. No rhonchi or crackles. No bronchial breathing. ABDOMEN: Soft, nontender . No guarding. no masses palpable. No guarding, no rigidity.No ascites, No hepatosplenomegaly.Bowel sounds heard. PSYCHIATRY: Alert and oriented X3, mood and affect normal. NERVOUS SYSTEM: Cranial N 2-12 grossly normal. Moves all 4 limbs. Diffuse weakness No focal deficits. Strength and sensation grossly intact.. Extremities: Right shoulder sling present, right hand warm, positive radial pulse, moving digits freely. LEGS: No edema. no swelling, no clubbing, no cyanosis Skin: Warm and dry, no rash . Lymphatic system. No LN neck axilla. Assessment and Plan Assessment: Acute on chronic large right rotator cuff injury, status post right first toe shoulder arthroplasty Acute hypoxic respiratory failure, postop, expected. Hypertension Gastroesophageal reflux disease Hyperlipidemia Diverticulosis Ongoing nicotine dependence COPD Plan: Continue on current medication regime ,monitoring and symptomatic treatment. Home meds have been reviewed and resumed accordingly. Currently blood pressure in the low 100s therefore holding off on home antihypertensives and will reevaluate in a.m. GI prophylaxis in place with Protonix. DVT prophylaxis/pain management as per surgery. Smoking cessation reinforced, nicotine patch added to med regimen. Thank you Dr. Hernandez for the consult. The impression and plan of care has been dictated as directed. : I performed a history and examination of this patient, discussed the same with the dictator. I agree with the dictator's note ,documented as a scribe. Any additional findings or plans will be noted.
[2020-08-01] MEDS: traMADol 50 MG TAB PO SCH ×3 (14:10→22:02)
[2020-08-01] MEDS: NICOTINE 21MG/24HR PATCH TRANSDERM SCH (16:26)
[2020-08-01] MEDS: PANTOPRAZOLE 40 MG/10 ML VIAL IVP SCH (16:26)
[2020-08-01] MEDS: VIT A,C & E-LUTEIN-MINERALS 1 EACH TAB PO SCH (16:27)
[2020-08-01] MEDS: IPRATROPIUM-ALBUTEROL 3 ML NEB INHALATION SCH ×2 (16:38→20:26)
[2020-08-01] MEDS ORDERED: ATORVASTATIN 20 MG TAB PO SCH (21:00)
[2020-08-02] MEDS: HYDROcodone/APAP 5-325MG 1 EACH TAB PO PRN ×2 (00:38→05:38)
[2020-08-02] MEDS: LACTATED RINGERS 1,000 ML IV SCH (03:37)
[2020-08-02 07:10] LABS: Basophils % (A) 0 %; Eosinophils % (A) 0 %; HCT 39.1 % (39.0-53.0); Lymphocytes # (A) 1.8 k/uL (1.0-4.8); Lymphocytes % (A) 16 %; MCH 30.9 pg (25.0-35.0); MCHC 33.4 g/dL (31.0-37.0); MCV 92.6 fL (80.0-100.0); Monocytes # (A) 0.7 k/uL (0-1.0); Monocytes % (A) 6 %; Neutrophils # (A) 8.6 k/uL (1.3-7.7); Neutrophils % (A) 74 %; Platelet Count 201 k/uL (150-450); RBC 4.22 m/uL (4.30-5.90); RDW 13.6 % (11.5-15.5); WBC 11.7 k/uL (3.8-10.6)
[2020-08-02] MEDS: IPRATROPIUM-ALBUTEROL 3 ML NEB INHALATION SCH ×2 (07:20→10:50)
[2020-08-02 07:26] LABS: HGB 13.1 gm/dL (13.0-17.5)
[2020-08-02 07:53] VITALS: BP 122/78; RESP 17; TEMP 98.1
[2020-08-02] MEDS ORDERED: SYMBICORT 80-4.5 MCG INHALER INHALATION SCH (08:00)
[2020-08-02] MEDS ORDERED: IPRATROPIUM 0.5 MG/2.5 ML NEBU INHALATION SCH (08:00)
[2020-08-02] MEDS: PANTOPRAZOLE 40 MG/10 ML VIAL IVP SCH (08:12)
[2020-08-02] MEDS: traMADol 50 MG TAB PO SCH ×2 (08:12→13:15)
[2020-08-02] MEDS: NICOTINE 21MG/24HR PATCH TRANSDERM SCH (08:12)
[2020-08-02] MEDS ORDERED: ASPIRIN 325 MG TAB PO SCH (09:00)
[2020-08-02] MEDS ORDERED: NON FORMULARY DRUG (Ubidecarenone [Co Q-10] 100 MG Capsule) PO SCH (09:00)
--- NOTE | 2020-08-02 09:34 | P.PN ---
Subjective Progress Note Date: 08/02/20 Principal diagnosis: Status post reverse right total shoulder arthroplasty Patient evaluated bedside early this morning, is resting comfortably. His pain is well-controlled current medication. He denies any headaches, lightheadedness, chest pain or shortness of breath. Objective - Vital Signs Vital signs: Vital Signs Temp 98.1 F 08/02/20 07:52 Pulse 92 08/02/20 07:52 Resp 17 08/02/20 07:52 BP 122/78 08/02/20 07:52 Pulse Ox 92 L 08/02/20 07:52 Intake & Output 08/01/20 08/02/20 08/02/20 18:59 06:59 18:59 Intake Total 2049 Output Total 550 250 Balance 1500 -250 Intake: IV 2049 Output: Urine 250 250 Estimated Blood Loss 300 Other: Voiding Method Toilet # Voids 3 - Exam Right upper extremity: Postoperative bandages removed today, incision is clean, dry and intact. Minimal soft tissue swelling and ecchymosis present in the upper arm. Range of motion is intact with flexion and extension of the elbow, wrist and hand. Sensory exam to light touch throughout the extremity is intact. Radial and ulnar pulses are 2+ - Labs CBC & Chem 7: 08/02/20 05:36 Labs: Abnormal Lab Results - Last 24 Hours (Table) 08/02/20 Range/Units 05:36 WBC 11.7 H (3.8-10.6) k/uL RBC 4.22 L (4.30-5.90) m/uL Neutrophils # 8.6 H (1.3-7.7) k/uL Assessment and Plan Assessment: Status post reverse right total shoulder arthroplasty Plan: Pain control, plan for discharge home on oral medication DVT prophylaxis, aspirin 325 mg daily for 2 weeks Activity level instructions was discussed Wound care instructions was discussed Use of arm sling was discussed Medical recommendations Plan for discharge home today Time with Patient: Less than 30
--- NOTE | 2020-08-02 09:37 | P.DS ---
Providers Date of admission: 08/01/20 06:12 Expected date of discharge: 08/02/20 Attending physician: Ricky Hernandez Consults: 08/01/20 09:51 Consult Physician Routine Consulting Provider: Antoine Nichols Reason/Comments: Medical Management Do you want consulting provider notified?: Yes Primary care physician: Antoine Nichols Hospital Course: Date of admission: 08/01/2020 Date of discharge: 08/02/2020 Admission diagnosis: Status post reverse right total shoulder arthroplasty Discharge diagnosis: Same Attending physician: Dr. Hernandez Surgical procedures: Reverse right total shoulder arthroplasty Brief history: Patient is a 70-year-old male with a history of a acute on chronic right shoulder rotator cuff tear with chronic rotator cuff arthropathy. Patient has failed outpatient conservative measures and has elected to proceed with a reverse right total shoulder arthroplasty. Hospital course: Details of patient's surgery can be found in operative report. Patient tolerated the procedure well and was subsequently transported to orthopedic floor. Patient's orthopeidc and medical care was provided daily. Patient had daily laboratory tests performed for evaluation of overall blood counts. Patient had daily physical therapy to include strengthening range of motion as well as education with walker ambulation. Patient was treated with aspirin 325mg for their postoperative DVT prophylaxis during their inpatient stay. Patient was noted to have a relatively uneventful postoperative course. Patient reported satisfactory pain control with oral pain medications by postoperative day. Patient showed satisfactory progress with physical therapy. Patient moved steadily through the program and had no difficulty meeting the goals by postoperative day 1. Given patient's otherwise satisfactory course and having met physical therapy goals, plan is to discharge patient home on postoperative day 1. Discharge condition/disposition: Patient will be discharged home in stable condition. Discharge medications: Instructions are given on resumption of patient's normal daily medications per primary care recommendation, in addition patient will be prescribed [place] 5 mg/325 mg, aspirin 325 mg, Colace 100 mg. Discharge instructions: 1. Wound care and infection precautions, keep incision dry and covered while showering, no lotions, creams, moisturizers. No soaking, tubs, pools, hottubs. Do not scrub over the incision. 2. Utilize arm sling 3. Ice and elevate when necessary. Do not exceed 20 minutes per hour with ice pack. 4. Utilize compression sleeve until seen at first follow up appointment. 5. Visiting nursing care. 7. Pain meds and anticoagulants per prescription. 8. Pain medication has potential to cause constipation. Increase oral fluid and fiber intake. Contact primary care provider if you have not had a bowel movement within 48 hours after discharge 9. No anti-inflammatory medication until discussed at first post operative visit, this including Motrin, Aleve, Mobic, Diclofenac 10. Follow up in office at 2 weeks postop with Anjum Odonnell PA-C 11. Follow up with your primary care doctor 7-10 days after discharge. 12. Contact [facility] with any questions, . Procedures: Reverse right total shoulder arthroplasty Patient Condition at Discharge: Good Plan - Discharge Summary Discharge Rx Participant: No New Discharge Prescriptions: New Aspirin 325 mg PO DAILY #30 tab Docusate [Colace] 100 mg PO DAILY #30 capsule Hydrocodone/Acetaminophen [[place] 5-325] 1 - 2 each PO Q6HR PRN #42 tab PRN Reason: Pain No Action Simvastatin [Zocor] 40 mg PO HS Bisoprolol-Hctz 5-6.25 mg [Ziac 5-6.25] 1 tab PO DAILY amLODIPine BESYLATE/BENAZEPRIL [amLODIPine BESYLATE/BENAZEPRIL 10-20 mg] 1 cap PO DAILY Aspirin 81 mg PO DAILY Ubidecarenone [Co Q-10] 200 mg PO DAILY Acetaminophen [Tylenol Arthritis] 650 mg PO DIRECTED PRN PRN Reason: Pain Ibuprofen [Motrin Ib] 800 mg PO Q8H PRN PRN Reason: Pain Fluticasone/Umeclidin/Vilanter [Trelegy Ellipta 100-62.5-25] 1 each INHALATION DAILY Vit C/E/Zn/Coppr/Lutein/Zeaxan [Preservision Areds 2 Softgel] 1 each PO DAILY Krill/[place]-3/Dha/Epa/Lipids [Krill Oil 350 mg Softgel] 1 each PO DAILY Omeprazole Magnesium [PriLOSEC OTC] 40 mg PO DAILY Discharge Medication List Aspirin 81 mg PO DAILY 08/24/16 [History] Bisoprolol-Hctz 5-6.25 mg [Ziac 5-6.25] 1 tab PO DAILY 08/24/16 [History] Simvastatin [Zocor] 40 mg PO HS 08/24/16 [History] Ubidecarenone [Co Q-10] 200 mg PO DAILY 08/24/16 [History] amLODIPine BESYLATE/BENAZEPRIL [amLODIPine BESYLATE/BENAZEPRIL 10-20 mg] 1 cap PO DAILY 08/24/16 [History] Acetaminophen [Tylenol Arthritis] 650 mg PO DIRECTED PRN 07/25/20 [History] Fluticasone/Umeclidin/Vilanter [Trelegy Ellipta 100-62.5-25] 1 each INHALATION DAILY 07/25/20 [History] Ibuprofen [Motrin Ib] 800 mg PO Q8H PRN 07/25/20 [History] Krill/[place]-3/Dha/Epa/Lipids [Krill Oil 350 mg Softgel] 1 each PO DAILY 07/25/20 [History] Omeprazole Magnesium [PriLOSEC OTC] 40 mg PO DAILY 07/25/20 [History] Vit C/E/Zn/Coppr/Lutein/Zeaxan [Preservision Areds 2 Softgel] 1 each PO DAILY 07/25/20 [History] Aspirin 325 mg PO DAILY #30 tab 08/02/20 [Rx] Docusate [Colace] 100 mg PO DAILY #30 capsule 08/02/20 [Rx] Hydrocodone/Acetaminophen [[place] 5-325] 1 - 2 each PO Q6HR PRN #42 tab 08/02/20 [Rx] Follow up Appointment(s)/Referral(s): Joseph Odonnell PAC [PHYSICIAN PHARMACY OPERATIONS MANAGER] - 08/17/20 11:20 am (with David) Patient Instructions/Handouts: Joint Replacement Surgery (DC) Activity/Diet/Wound Care/Special Instructions: Orthopedic Discharge Instructions: 1. Wound care and infection precautions, keep incision dry and covered while showering, no lotions, creams, moisturizers. No soaking, pools, hot tubs. Do not scrub over incision. 2. Utilize arm sling 3. Ice and elevate when necessary. Do not exceed 20 minutes per hour with ice pack. 4. Utilize compression sleeve until seen at first follow up appointment. 5. Pain meds and anticoagulants per prescription. 6. Pain medication has potential to cause constipation. Increase oral fluid and fiber intake. Contact primary care provider if you have not had a bowel movement within 48 hours after discharge. 7. No anti-inflammatory medication until discussed at first post operative visit, this including Motrin, Aleve, Mobic, Diclofenac. 8. Follow up in office at 2 weeks postop with Anjum Odonnell PA-C 9. Follow up with your primary care doctor 7-10 days after discharge. 10. Contact [facility] with any questions, . Discharge Disposition: HOME WITH HOME HEALTH SERVICES
[2020-08-02 10:22] LABS: African American GFR (CKD) 111.6 (60.0-200.0); Anion Gap 8.7 mmol/L (4.00-12.00); Calcium 9.1 mg/dL (8.7-10.3); Carbon Dioxide 29.3 mmol/L (21.6-31.8); Non-African American GFR(CKD) 96.3 (60.0-200.0); Potassium 4.4 mmol/L (3.5-5.5)
[2020-08-02 11:03] VITALS: PULSE 88
[2020-08-02] MEDS: VIT A,C & E-LUTEIN-MINERALS 1 EACH TAB PO SCH (13:15)
--- NOTE | 2020-08-02 13:42 | P.PN ---
Subjective Progress Note Date: 08/02/20 This is 70-year-old gentleman sustained acute on chronic large right rotator cuff tear secondary to fall, status post right reverse total shoulder arthroplasty. Apparently patient lost his balance while attempting to get off of truck ,fell onto cement, landing on his to his right shoulder. Tolerated procedure well. EBL 300. Patient has just arrived to the floor from recovery room. Denies chest pain, palpitations or shortness of breath. Pain controlled. Vital signs stable, systolic blood pressure in the low 100s currently. Maintaining O2 sats in the 90s on 2 L nasal cannula. Afebrile. 08/02/20 postop day #1, ambulating, tolerating exertion well. Currently maintaining O2 sats in the 90s on 2 L nasal cannula. Pain controlled. Passing flatus. Denies chest pain, palpitations or shortness of breath. Denies lightheadedness, dizziness or focal deficits. Afebrile, T-max 99.8. WBC 11.7. Denies cough or congestion. Objective - Vital Signs Vital signs: Vital Signs Temp 98.1 F 08/02/20 07:52 Pulse 88 08/02/20 11:02 Resp 17 08/02/20 07:52 BP 122/78 08/02/20 07:52 Pulse Ox 92 L 08/02/20 07:52 Intake & Output 08/01/20 08/02/20 08/02/20 18:59 06:59 18:59 Intake Total 2049 Output Total 550 250 Balance 1500 -250 Intake: IV 2049 Output: Urine 250 250 Estimated Blood Loss 300 Other: Voiding Method Toilet # Voids 3 - Exam PHYSICAL EXAM: VITAL SIGNS: [As above] GENERAL: Sitting up in in chair, alert, no acute distress HEENT: Normocephalic, Conjunctivae normal. eyes normal. NECK: No JVD. No thyroid enlargement. CARDIOVASCULAR: S1, S2 regular. No murmur RESPIRATION: Equal air entry with Breath sounds diminished in the bases. No rhonchi ,crackles or wheezing. ABDOMEN: Soft, nontender . No guarding. no masses palpable. Positive Bowel sounds. PSYCHIATRY: Alert and oriented X3, mood and affect normal. NERVOUS SYSTEM: Cranial N 2-12 grossly normal. Moves all 4 limbs. No focal deficits. Strength and sensation grossly intact. Extremities: Right shoulder sling present, right hand with positive radial pulse, moving digits freely. LEGS: No edema. no swelling, no clubbing, no cyanosis Skin: Warm and dry, no rash . - Labs CBC & Chem 7: 08/02/20 05:36 08/02/20 05:36 Labs: Abnormal Lab Results - Last 24 Hours (Table) 08/02/20 Range/Units 05:36 WBC 11.7 H (3.8-10.6) k/uL RBC 4.22 L (4.30-5.90) m/uL Neutrophils # 8.6 H (1.3-7.7) k/uL Assessment and Plan Assessment: Acute on chronic large right rotator cuff injury, status post right first toe shoulder arthroplasty Acute hypoxic respiratory failure, postop, expected Atelectasis Hypertension Gastroesophageal reflux disease Hyperlipidemia Diverticulosis Ongoing nicotine dependence COPD Plan: Continue on current medication regime ,monitoring and symptomatic treatment. Weaning off oxygen in progress, O2 sat on room air after ambulation ordered-discussed with RN. Maintain aggressive pulmonary toileting with incentive spirometer ordered. DVT prophylaxis/pain management as per surgery. Smoking cessation reinforced. The impression and plan of care has been dictated as directed. : I performed a history and examination of this patient, discussed the same with the dictator. I agree with the dictator's note ,documented as a scribe. Any additional findings or plans will be noted.
== END 2020-08-02 14:18 | disposition home health service (06) | DRG 483 ==
LOC: 2ORMAIN 06:12 → 4SSUR 12:38
PROVIDERS: ADMIT Orthopaedic Surgery; ATTEND Orthopaedic Surgery
PROC: 0RRJ00Z Replacement of Right Shoulder Joint with Reverse Ball and Socket Synthetic Substitute, Open Approach (ICD-10-PCS; principal; 2020-08-01 08:00)
DX: S46.011A Strain of muscle(s) and tendon(s) of the rotator cuff of right shoulder, initial encounter (principal); J96.00 Acute respiratory failure, unspecified whether with hypoxia or hypercapnia; J98.11 Atelectasis; V58.4XXA Person boarding or alighting a pick-up truck or van injured in noncollision transport accident, initial encounter; E78.5 Hyperlipidemia, unspecified; J44.9 Chronic obstructive pulmonary disease, unspecified; F17.210 Nicotine dependence, cigarettes, uncomplicated; I10 Essential (primary) hypertension; K21.9 Gastro-esophageal reflux disease without esophagitis; K57.90 Diverticulosis of intestine, part unspecified, without perforation or abscess without bleeding; Z79.82 Long term (current) use of aspirin; Z80.7 Family history of other malignant neoplasms of lymphoid, hematopoietic and related tissues; Z82.49 Family history of ischemic heart disease and other diseases of the circulatory system; Z90.89 Acquired absence of other organs; Z79.899 Other long term (current) drug therapy
CPT/HCPCS: 36415; 80048; 85025; 88300; 94640

== ENCOUNTER → 2021-05-03 | Outpatient (CLI) | payer MEDICARE, OTHER ==
--- NOTE | 2021-05-03 15:41 | CTL ---
EXAMINATION TYPE: CT Low Dose Lung DATE OF EXAM ORDERED: 05/03/2021 HISTORY: . Lung cancer screening CT DLP: 84.[address] CTDI: 2.4 mGy Automated exposure control for dose reduction was used. SCREENING VISIT: COMPARISON: TECHNIQUE: Low dose computed tomography scan was performed through the chest at 1 mm thick sections a nd reconstructed images in the coronal plane at [address] DIAGNOSTIC QUALITY: Satisfactory FINDINGS: LUNG NODULES: Present, detailed below: 1. There is a 1.6 x 1.1 cm spiculated density in the posterior right upper lung field. Series 4 image 1. 2. Tiny 0.4 cm density in the periphery of the lingula anteriorly, series 4 image 223. 3. There are several very small areas of pneumonitis without discrete nodules present within the bila teral lung eugene greater in the lung bases LUNGS: COPD: Severity: Moderate Fibrosis: Severity: None Lymph nodes: Scattered small use time lymph nodes. Enlarged lymphadenopathy is not evident Other findings: None RIGHT PLEURAL SPACE: Effusion: None Calcification: None Thickening: None Pneumothorax: None LEFT PLEURAL SPACE: Effusion: None Calcification: None Thickening: None Pneumothorax: None HEART: Heart Size: Normal Coronary calcification: Very dense Pericardial effusion: None OTHER FINDINGS: Upper abdomen: Normal Bony thorax: Old right rib fractures Supraclavicular region: Normal Other: Ascending thoracic aorta at the level the main pulmonary artery measures 3.6 cm. The main pul monary artery at the bifurcation measures 2.7 cm. IMPRESSION: 1. Suspicious spiculated nodule posterior right upper lung field. Additional workup with PET CT recom mended. FOLLOW UP CT CHEST RECOMMENDATION: PET/CT CT LUNG RAD: Lung-Rad 4A Suspicious
== END | disposition home or self-care (01) ==
LOC: RADCTMAIN 14:44
PROVIDERS: ATTEND Family Medicine
DX: R91.1 Solitary pulmonary nodule (principal); Z87.891 Personal history of nicotine dependence
CPT/HCPCS: 71271

== ENCOUNTER → 2021-06-08 | Outpatient (CLI) | payer MEDICARE, OTHER | END | disposition home or self-care (01) | LOC: RADPETMAIN 12:36 | PROVIDERS: ATTEND Internal Medicine Critical Care Medicine | DX: Z53.9 Procedure and treatment not carried out, unspecified reason (principal) ==

== ENCOUNTER → 2021-06-15 | Outpatient (CLI) | payer MEDICARE, OTHER ==
--- NOTE | 2021-06-16 23:22 | PE ---
EXAMINATION TYPE: PET CT fusion skull to thigh DATE OF EXAM: 06/15/2021 COMPARISON: Low-dose lung screening CT May 03, 2021 HISTORY: Abnormal CT, solitary pulmonary nodule right lung. TECHNIQUE: Following the intravenous administration of 11.17 mCi of F-18 FDG, whole body images are performed from the skull base to the midthigh. Images are reviewed on the computer in the coronal, a xial, and sagittal planes. Reconstructed rotating images are created on independent workstation and reviewed on the computer. A localization and attenuation correction CT is performed in conjunction with the PET scan. Blood glucose level equals 98 SCAN: Initial Scan FINDINGS: SKULL BASE AND NECK: No areas of abnormal hypermetabolic uptake. CHEST, MEDIASTINUM, AND HILAR REGION: Moderate underlying emphysematous change is redemonstrated. Red emonstration of 1.1 x 1.0 cm spiculated nodule superior aspect right lower lobe, Lesion axial image 8 3 is however ametabolic. No areas of abnormal hypermetabolic uptake. ABDOMEN AND PELVIS: Normal excretion. No adrenal masses. No areas of abnormal hypermetabolic uptake. OSSEOUS STRUCTURES: No areas of abnormal hypermetabolic uptake. OTHER CT: Metallic hardware from right shoulder surgery causes streak artifact. Mild/moderate calcifi ed plaque bilateral carotid bulb level. Three-vessel coronary artery calcification and/or stents. Mild cardiomegaly with prominent pulmonary arteries. Small size hiatal hernia. Poorly distended stomach. Tiny bilateral nonobstructing renal calculi. Large anterior exophytic 8.1 c m thin-walled cyst anteriorly from left kidney. AAA up to 3.4 cm axial image 155 and 3.7 cm axial sheba ge 165. Sigmoid colonic diverticula. Scattered pelvic phleboliths. Underlying S-shaped scoliosis. IMPRESSION: No suspicious hypermetabolic uptake in the 1.1 cm spiculated lesion superior aspect right lower lobe. Advise follow-up CT in 6-12 months time to document stability.
== END | disposition home or self-care (01) ==
LOC: RADPETMAIN 11:05
PROVIDERS: ATTEND Internal Medicine Critical Care Medicine
DX: R91.1 Solitary pulmonary nodule (principal)
CPT/HCPCS: 78815; A9552

== ENCOUNTER 2022-05-02 09:20 | Day surgery (SDC) | payer MEDICARE, OTHER ==
[2022-04-30 14:53] VITALS: BMI 25.1
[~2022-05-02 09:20] MED LIST changes: -ACETAMINOPHEN TAB 500 MG TAB PO PRN; -DEXAMETHASONE SOD PHOSPHATE 4 MG/ML 1 ML VIAL IV ONE; +LACTATED RINGERS 1,000 ML IV SCH; -LIDOCAINE 1% (10MG/ML) FOR IV START INTRADERMA PRN; -MELOXICAM 7.5 MG TAB PO PRN; -MIDAZOLAM 2 MG/2 ML VIAL IV PRN; -ONDANSETRON 4 MG/2 ML VIAL IVP ONE; -TRANEXAMIC ACID 1,000 MG in SODIUM CHLORIDE 0.9% 100 ML IVPB PRN
[2022-05-02 11:05] VITALS: TEMP 98.4
[2022-05-02] MEDS ORDERED: LIDOCAINE 1% (10MG/ML) FOR IV START INTRADERMA ONE (11:08)
[2022-05-02] MEDS ORDERED: PROPOFOL 10 MG/ML 20 ML VIAL IV ONE (11:41)
--- NOTE | 2022-05-02 11:42 | P.GSHP ---
History of Present Illness H&P Date: 05/02/22 Chief Complaint: Screening colonoscopy This a 72-year-old male who presents today for screening colonoscopy. Patient denies a significant GI complaints. Past Medical History Past Medical History: COPD, GERD/Reflux, Hyperlipidemia, Hypertension Additional Past Medical History / Comment(s): COPD, diverticulosis, History of Any Multi-Drug Resistant Organisms: None Reported Past Surgical History: Orthopedic Surgery, Tonsillectomy Additional Past Surgical History / Comment(s): right ankle surgery, COLONOSCOPY Past Anesthesia/Blood Transfusion Reactions: No Reported Reaction Smoking Status: Current every day smoker - Past Family History Mother Family Medical History: Coronary Artery Disease (CAD) Father Family Medical History: Cancer Additional Family Medical History / Comment(s): lymphoma Medications and Allergies Home Medications Medication Instructions Recorded Confirmed Type Aspirin 81 mg PO DAILY 08/24/16 05/02/22 History Bisoprolol-Hctz 5-6.25 mg [Ziac 1 tab PO DAILY 08/24/16 05/02/22 History 5-6.25] Simvastatin [Zocor] 40 mg PO HS 08/24/16 05/02/22 History Ubidecarenone [Co Q-10] 200 mg PO DAILY 08/24/16 05/02/22 History amLODIPine BESYLATE/BENAZEPRIL 1 cap PO DAILY 08/24/16 05/02/22 History [amLODIPine BESYLATE/BENAZEPRIL 10-20 mg] Acetaminophen [Tylenol Arthritis] 650 mg PO DIRECTED PRN 07/25/20 05/02/22 History Fluticasone/Umeclidin/Vilanter 1 each INHALATION DAILY 07/25/20 05/02/22 History [Trelegy Ellipta 100-62.5-25] Ibuprofen [Motrin Ib] 800 mg PO Q8H PRN 07/25/20 05/02/22 History Krill/[place]-3/Dha/Epa/Lipids 1 each PO DAILY 07/25/20 05/02/22 History [Krill Oil 350 mg Softgel] Omeprazole Magnesium [PriLOSEC OTC] 40 mg PO DAILY 07/25/20 05/02/22 History Vit C/E/Zn/Coppr/Lutein/Zeaxan 1 each PO DAILY 07/25/20 05/02/22 History [Preservision Areds 2 Softgel] Docusate [Colace] 100 mg PO DAILY #30 capsule 08/02/20 05/02/22 Rx Hydrocodone/Acetaminophen [[place] 1 - 2 each PO Q6HR PRN #42 tab 08/02/20 05/02/22 Rx 5-325] Allergies Allergy/AdvReac Type Severity Reaction Status Date / Time No Known Allergies Allergy Verified 04/30/22 14:43 Surgical - Exam Vital Signs Temp Pulse Resp BP Pulse Ox 98.4 F 88 18 146/81 95 05/02/22 11:04 05/02/22 11:04 05/02/22 11:04 05/02/22 11:04 05/02/22 11:04 - General well developed, well nourished, no distress - Eyes PERRL - ENT normal pinna - Neck no masses - Respiratory normal expansion - Cardiovascular Rhythm: regular - Abdomen Abdomen: soft, non tender Assessment and Plan Assessment: We'll perform screening colonoscopy
--- NOTE | 2022-05-02 11:54 | P.OP ---
Date of Procedure: 05/02/22 Preoperative Diagnosis: Screening colonoscopy Postoperative Diagnosis: Internal and external hemorrhoids Diverticulosis Sigmoid colon lipoma Procedure(s) Performed: Colonoscopy Anesthesia: MAC Surgeon: Jabier Burgos Pathology: other (Sigmoid colon lipoma) Condition: stable Disposition: PACU Description of Procedure: The patient's placed on the endoscopy table in the lateral position. He received IV sedation. Digital rectal exam was performed. Internal and external hemorrhoids were noted. Flexible colonoscope was placed patient anus passed throughout the entire colon. Ileocecal valve was visualized. The cecum, ascending and transverse colon appeared normal. In the descending; there is ex tensive diverticular changes. Several diverticuli were approximately one third of the lumen in diameter. In the sigmoid colon a lipoma was seen this was biopsied with cold forcep. Scope was then withdrawn the rectum appeared normal. Scope was then withdrawn from the anus. Internal and external hemorrhoids are noted.
[2022-05-02 12:19] VITALS: BP 121/73; PULSE 78; RESP 15
== END 2022-05-02 12:57 | disposition home or self-care (01) ==
LOC: ORWHC2ENDO 09:20
PROVIDERS: ATTEND Surgery
DX: Z12.11 Encounter for screening for malignant neoplasm of colon (principal); K52.9 Noninfective gastroenteritis and colitis, unspecified; I10 Essential (primary) hypertension; E78.5 Hyperlipidemia, unspecified; K21.9 Gastro-esophageal reflux disease without esophagitis; J44.9 Chronic obstructive pulmonary disease, unspecified; D17.5 Benign lipomatous neoplasm of intra-abdominal organs; F17.200 Nicotine dependence, unspecified, uncomplicated; K64.4 Residual hemorrhoidal skin tags; K64.8 Other hemorrhoids; Z79.1 Long term (current) use of non-steroidal anti-inflammatories (NSAID); Z79.82 Long term (current) use of aspirin; Z82.49 Family history of ischemic heart disease and other diseases of the circulatory system
CPT/HCPCS: 88305; 45380; J2704

== ENCOUNTER → 2022-06-28 | Outpatient (CLI) | payer MEDICARE, OTHER ==
--- NOTE | 2022-06-28 13:40 | CTL ---
EXAMINATION TYPE: CT Low Dose Lung DATE OF EXAM ORDERED: 06/28/2022 HISTORY: Long-term tobacco use. Lung cancer screening CT DLP: 107.[address] CTDI: 3.30 mGy Automated exposure control for dose reduction was used. SCREENING VISIT: Third after baseline COMPARISON: Prior studies 2020, 2018, and 2015 TECHNIQUE: Low dose computed tomography scan was performed through the chest at 1 mm thick sections a nd reconstructed images in multiple planes at 1 mm and [address] DIAGNOSTIC QUALITY: Satisfactory FINDINGS: LUNG NODULES: Present, detailed below: New 10 x 7 mm right upper lobe nodule series 4 image 42. Some scattered calcified nodules are benign granulomas are redemonstrated. A few scattered smaller noncalcified under 5 mm nodules are noted. LUNGS: COPD: Severity: Mild to moderate Fibrosis: Severity: Mild right basilar Lymph nodes: No greater than 1 cm Other findings: None RIGHT PLEURAL SPACE: Effusion: None Calcification: None Thickening: None Pneumothorax: None LEFT PLEURAL SPACE: Effusion: None Calcification: None Thickening: None Pneumothorax: None HEART: Heart Size: Normal Coronary Calcification: Severe 3 vessel calcification is redemonstrated Pericardial Effusion: None OTHER FINDINGS: Upper abdomen: Large thin-walled exophytic cyst anteriorly from the left kidney is only partially sheba ged. Thin walled cyst posteriorly upper pole right kidney is partially imaged. Suspected subcentimete r hemorrhagic cyst medially upper pole axial image 55 series 5 is again seen. Bony thorax: S-shaped scoliosis redemonstrated. Surgical changes right shoulder causes streak artifac t. Supraclavicular region: None Other: None IMPRESSION: New suspicious 10 x 7 mm right upper lung nodule CT LUNG RAD AND CT CHEST RECOMMENDATION: Lung-Rad 4B or 4X Very Suspicious: Follow-up Chest CT with o r without contrast or PET/CT and/or tissue sampling. PET/CT may be used when there is a > 8 mm solid component. S Modifier (other clinically significant findings): S Advise repeat PET/CT. Severe three-vessel coronary artery calcification should be correlated with add itional cardiac risk factors.
== END | disposition home or self-care (01) ==
LOC: RADCTMAIN 10:35
PROVIDERS: ATTEND Internal Medicine Critical Care Medicine
DX: Z12.2 Encounter for screening for malignant neoplasm of respiratory organs (principal); I25.10 Atherosclerotic heart disease of native coronary artery without angina pectoris; Z87.891 Personal history of nicotine dependence
CPT/HCPCS: 71271

== ENCOUNTER 2023-03-07 13:37 | Inpatient (IN) | payer MEDICARE, OTHER ==
[2023-03-07] MEDS ORDERED: cefTRIAXone IN SWFI 1,000 MG/10 ML SYRINGE IVP STA (14:06)
[2023-03-07] MEDS ORDERED: ALBUTEROL NEBULIZED 2.5 MG/3 ML INHALATION STA (14:07)
[2023-03-07] MEDS ORDERED: methylPREDNISolone SOD SUCCI 125 MG/2 ML VIAL IV STA (14:07)
[2023-03-07] MEDS ORDERED: IPRATROPIUM 0.5 MG/2.5 ML NEBU INHALATION STA (14:07)
--- NOTE | 2023-03-07 14:11 | ED ---
General Adult HPI - General Source: patient, RN notes reviewed, old records reviewed Mode of arrival: ambulatory Limitations: no limitations <Linus Banks - Last Filed: 03/07/23 14:48> - History of Present Illness -: days(s) Radiation: non-radiation Severity scale (1-10): 7 Quality: sharp Consistency: constant Improves with: none Worsens with: none Associated Symptoms: cough, fever/chills, shortness of breath Treatments Prior to Arrival: none <Linus Alford - Last Filed: 03/09/23 18:02> - General Chief complaint: Shortness of Breath Stated complaint: Chest Pain,Sob Time Seen by Provider: 03/07/23 13:50 - History of Present Illness Initial comments: This is a 73-year-old male who has a past medical history significant for COPD. Patient continues to smoke. Patient states the last few days had difficulty breathing which is getting progressively worse. Patient states he has quite a bit of cough and occasionally coughs up some sputum. Patient denies any fever or chills. Patient denies any chest pain. Patient denies any back pain. Patient denies abdominal pain patient denies nausea vomiting diarrhea. Patient denies any palpitations. Patient denies any lightheadedness or dizziness. (Linus Banks) 73 male DF for evaluation of shortness of breath. Patient does have known underlying COPD with recent diagnosis of possible underlying cancers process or mass. Lung nodule. Patient states cough is increasing shortness of breath is increasing. Denying any fevers travel history or sick contacts. (Linus Alford) - Related Data Home Medications Medication Instructions Recorded Confirmed Bisoprolol-Hctz 5-6.25 mg [Ziac 1 tab PO DAILY 08/24/16 03/07/23 5-6.25] Simvastatin [Zocor] 40 mg PO HS 08/24/16 03/07/23 Ubidecarenone [Co Q-10] 10 mg PO DAILY@1200 08/24/16 03/07/23 amLODIPine BESYLATE/BENAZEPRIL 1 cap PO DAILY 08/24/16 03/07/23 [amLODIPine BESYLATE/BENAZEPRIL 10-20 mg] Fluticasone/Umeclidin/Vilanter 1 puff INHALATION RT-DAILY 07/25/20 03/07/23 [Jacob Smart 100-62.5-25] Omeprazole Magnesium [PriLOSEC OTC] 20 mg PO BID 07/25/20 03/07/23 Vit C/E/Zn/Coppr/Lutein/Zeaxan 1 tab PO DAILY@1200 07/25/20 03/07/23 [Preservision Areds 2 Softgel] Albuterol Inhaler [Ventolin Hfa 1 - 2 puff INHALATION RT-Q6H PRN 03/07/23 03/07/23 Inhaler] Albuterol Nebulized [Ventolin 2.5 mg INHALATION RT-TID 03/07/23 03/07/23 Nebulized] Fluocinonide 0.05% Solution 1 applic TOPICAL HS PRN 03/07/23 03/07/23 Ketoconazole 2% Shampoo [Nizoral] 1 applic TOPICAL DAILY PRN 03/07/23 03/07/23 Krill/Om-3/Dha/Epa/Phospho/Ast 1 cap PO DAILY@1200 03/07/23 03/07/23 [Krill Oil 500 mg Softgel] Turmeric Root Extract [Turmeric] 500 mg PO HS 03/07/23 03/07/23 Allergies Allergy/AdvReac Type Severity Reaction Status Date / Time No Known Allergies Allergy Verified 03/07/23 15:20 Review of Systems ROS Other: All systems not noted in ROS Statement are negative. <Linus Banks - Last Filed: 03/07/23 14:48> ROS Other: All systems not noted in ROS Statement are negative. <Linus Alford - Last Filed: 03/09/23 18:02> ROS Statement: Those systems with pertinent positive or pertinent negative responses have been documented in the HPI. Past Medical History Past Medical History: COPD, GERD/Reflux, Hyperlipidemia, Hypertension Additional Past Medical History / Comment(s): COPD, diverticulosis, History of Any Multi-Drug Resistant Organisms: None Reported Past Surgical History: Orthopedic Surgery, Tonsillectomy Additional Past Surgical History / Comment(s): right ankle surgery, COLONOSCOPY Past Anesthesia/Blood Transfusion Reactions: No Reported Reaction Past Psychological History: No Psychological Hx Reported Smoking Status: Current every day smoker Past Alcohol Use History: None Reported Past Drug Use History: None Reported - Past Family History Mother Family Medical History: Coronary Artery Disease (CAD) Father Family Medical History: Cancer Additional Family Medical History / Comment(s): lymphoma <Linus Banks - Last Filed: 03/07/23 14:48> General Exam Limitations: no limitations <Linus Banks - Last Filed: 03/07/23 14:48> General appearance: alert, in no apparent distress, anxious, in distress Head exam: Present: atraumatic, normocephalic, normal inspection Eye exam: Present: normal appearance, PERRL, EOMI. Absent: scleral icterus, conjunctival injection, periorbital swelling ENT exam: Present: normal exam, mucous membranes moist Neck exam: Present: normal inspection. Absent: tenderness, meningismus, lymphadenopathy Respiratory exam: Present: wheezes, decreased breath sounds, prolonged expiratory. Absent: respiratory distress, rales, rhonchi, stridor Cardiovascular Exam: Present: regular rate, normal rhythm, normal heart sounds. Absent: systolic murmur, diastolic murmur, rubs, gallop, clicks GI/Abdominal exam: Present: soft, normal bowel sounds. Absent: distended, tenderness, guarding, rebound, rigid Extremities exam: Present: normal inspection, full ROM, normal capillary refill. Absent: tenderness, pedal edema, joint swelling, calf tenderness Back exam: Present: normal inspection Neurological exam: Present: alert, oriented X3, CN II-XII intact Psychiatric exam: Present: normal affect, normal mood Skin exam: Present: warm, dry, intact, normal color. Absent: rash <Linus Alford - Last Filed: 03/09/23 18:02> - General Exam Comments Initial Comments: GENERAL: Patient is well-developed and well-nourished. Patient is nontoxic and well- hydrated and is in mild distress. ENT: Neck is soft and supple. No significant lymphadenopathy is noted. Oropharynx is clear. Moist mucous membranes. Neck has full range of motion without eliciting any pain. EYES: The sclera were anicteric and conjunctiva were pink and moist. Extraocular movements were intact and pupils were equal round and reactive to light. Eyelids were unremarkable. PULMONARY: Patient has diffuse respiratory wheezing and some crackles in the bases particularly on the right CARDIOVASCULAR: There is a regular rate and rhythm without any murmurs gallops or rubs. ABDOMEN: Soft and nontender with normal bowel sounds. SKIN: Skin is clear with no lesions or rashes and otherwise unremarkable. NEUROLOGIC: Patient is alert and oriented x3. Cranial nerves II through XII are grossly intact. Motor and sensory are also intact. Normal speech, volume and content. Symmetrical smile. MUSCULOSKELETAL: Normal extremities with adequate strength and full range of motion. LYMPHATICS: No significant lymphadenopathy is noted PSYCHIATRIC: Normal psychiatric evaluation. (Linus Banks) Course <Linus Alford - Last Filed: 03/09/23 18:02> Vital Signs 03/07/23 03/07/23 03/07/23 13:47 13:57 14:00 Temperature 97.6 F Pulse Rate 92 Respiratory 22 Rate Blood Pressure 138/82 123/87 O2 Sat by Pulse 91 L 84 L 91 L Oximetry 03/07/23 03/07/23 03/07/23 14:30 14:47 14:51 Temperature Pulse Rate 88 94 Respiratory 25 H Rate Blood Pressure 127/85 121/84 O2 Sat by Pulse 94 L 92 L Oximetry 03/07/23 03/07/23 03/07/23 14:56 15:30 17:00 Temperature Pulse Rate 90 95 Respiratory 20 Rate Blood Pressure 121/84 115/95 O2 Sat by Pulse 92 L 91 L Oximetry 03/07/23 03/07/23 18:15 18:25 Temperature Pulse Rate 95 98 Respiratory Rate Blood Pressure O2 Sat by Pulse Oximetry - Reevaluation(s) Reevaluation #1: 03/07/23 17:05 Medical record is reviewed (Linus Alford) Reevaluation #2: 03/07/23 17:05 Patient symptoms are improved relatively unchanged (Linus Alford) Reevaluation #3: 03/07/23 17:05 Patient for results questions answered (Linus Alford) Reevaluation #4: 03/07/23 17:06 Was pt. sent in by a medical professional or institution (, [facility], HORSE BREAKER, urgent care, hospital, or care home...) When possible be specific @ -no Did you speak to anyone other than the patient for history (EMS, parent, family, police, friend...)? What history was obtained from this source @ -no Did you review nursing and triage notes (agree or disagree)? Why? @ -agree Are old charts reviewed (outside hosp., previous admission, EMS record, old EKG, old radiological studies, urgent care reports/EKG's, care home records)? Report findings @ -yes Differential Diagnosis (chest pain, altered mental status, abdominal pain women, abdominal pain men, vaginal bleeding, weakness, fever, dyspnea, syncope, headache, dizziness, GI bleed, back pain, seizure, CVA, palpatations, mental health, musculoskeletal)? @ -prior EKG interpreted by me (3pts min.). @ -yes X-rays interpreted by me (1pt min.). @ -yes CT interpreted by me (1pt min.). @ -yes U/S interpreted by me (1pt. min.). @ -no What testing was considered but not performed or refused? (CT, X-rays, U/S, labs)? Why? @ -none What meds were considered but not given or refused? Why? @ -none Did you discuss the management of the patient with other professionals (professionals i.e. , PA, HORSE BREAKER, lab, RT, psych nurse, social science research assistant, claims administrator, teacher, correctional probation officer, supervisor case loading)? Give summary @ -no Was smoking cessation discussed for >3mins.? @ -no Was critical care preformed (if so, how long)? @ -no Were there social determinants of health that impacted care today? How? (Homelessness, low income, unemployed, alcoholism, drug addiction, transportation, low edu. Level, literacy, decrease access to med. care, prison, rehab)? @ -none Was there de-escalation of care discussed even if they declined (Discuss DNR or withdrawal of care, Hospice)? DNR status @ -no What co-morbidities impacted this encounter? (DM, HTN, Smoking, COPD, CAD, Cancer, CVA, ARF, Chemo, Hep., AIDS, mental health diagnosis, sleep apnea, morbid obesity)? @ -none Was patient admitted / discharged? Hospital course, mention meds given and route, prescriptions, significant lab abnormalities, going to OR and other pertinent info. @ - 73 male to the emergency department for evaluation. Patient be admitted on IV antibiotics for pneumonia persistent dyspnea is complicated by severe COPD with COPD exacerbation Admitted Undiagnosed new problem with uncertain prognosis? @ -no Drug Therapy requiring intensive monitoring for toxicity (Heparin, Nitro, Insulin, Cardizem)? @ -no Were any procedures done? @ -no Diagnosis/symptom? @ -COPD, pneumonia, hypoxia, lung mass Acute, or Chronic, or Acute on Chronic? @ -Acute Uncomplicated (without systemic symptoms) or Complicated (systemic symptoms)? @ -Complicated Side effects of treatment? @ -no Exacerbation, Progression, or Severe Exacerbation? @ -exacerbation Poses a threat to life or bodily function? How? (Chest pain, [place], [place], pneumonia, PE, COPD, DKA, ARF, appy, cholecystitis, CVA, Diverticulitis, Homicidal, Suicidal, threat to staff... and all critical care pts) @ -yes with hypoxia (Linus Alford) Reevaluation #5: 03/07/23 17:06 Differential Dyspnea: Coronary syndrome, arrhythmia, tamponade, asthma, COPD, pulmonary embolism, pneumonia, pneumothorax, pulmonary effusion, anaphylaxis, diabetic ketoacidosis, flailed chest, pulmonary contusion, diaphragmatic rupture, anemia, neuromuscular, this is not meant to be an all-inclusive list. (Linus Alford) - Consultations Consultation #1: (Dr. Nichols agrees to admit this patient (Linus Alford) Medical Decision Making <Linus Banks - Last Filed: 03/07/23 14:48> - Lab Data Result diagrams: 03/08/23 06:16 03/08/23 06:16 - EKG Data -: EKG Interpreted by Sc - Radiology Data Radiology results: report reviewed (Chest x-rays positive for multifocal pneumonia, CT angios of chest show significant multilobar pneumonia), image reviewed <Linus Alford - Last Filed: 03/09/23 18:02> - Medical Decision Making EKG was interpreted by myself shows a sinus rhythm at 90 bpm WI interval 275 QRS is 93 QT interval 369 QTC is 416 patient's EKG shows no ST segment elevation or depression Was pt. sent in by a medical professional or institution (, PA, HORSE BREAKER, urgent care, hospital, or care home...) When possible be specific @ -[No] Did you speak to anyone other than the patient for history (EMS, parent, family, police, friend...)? What history was obtained from this source @ -[No] Did you review nursing and triage notes (agree or disagree)? Why? @ -[I reviewed and agree with nursing and triage notes] Were old charts reviewed (outside hosp., previous admission, EMS record, old E KG, old radiological studies, urgent care reports/EKG's, care home records)? Report findings @ -I reviewed prior radiological studies prior laboratory studies in prior charts and this patient Differential Diagnosis (chest pain, altered mental status, abdominal pain women, abdominal pain men, vaginal bleeding, weakness, fever, dyspnea, syncope, headache, dizziness, GI bleed, back pain, seizure, CVA, palpatations, mental health, musculoskeletal)? @ -Differential Dyspnea: Coronary syndrome, arrhythmia, tamponade, asthma, COPD, pulmonary embolism, pneumonia, pneumothorax, pulmonary effusion, anaphylaxis, diabetic ketoacidosis, flailed chest, pulmonary contusion, diaphragmatic rupture, anemia, neuromuscular, this is not meant to be an all-inclusive list. EKG interpreted by me (3pts min.). @ -[As above] X-rays interpreted by me (1pt min.). @ -Chest x-ray shows a left-sided effusion with infiltrate in the left upper lobe CT interpreted by me (1pt min.). @ -[None done] U/S interpreted by me (1pt. min.). @ -[None done] What testing was considered but not performed or refused? (CT, X-rays, U/S, labs)? Why? @ -[None] What meds were considered but not given or refused? Why? @ -[None] Did you discuss the management of the patient with other professionals (professionals i.e. , PA, HORSE BREAKER, lab, RT, psych nurse, social science research assistant, claims administrator, teacher, correctional probation officer, supervisor case loading)? Give summary @ -[No] Was smoking cessation discussed for >3mins.? @ -[No] Was critical care preformed (if so, how long)? @ -[No] Were there social determinants of health that impacted care today? How? (Homelessness, low income, unemployed, alcoholism, drug addiction, transportation, low edu. Level, literacy, decrease access to med. care, prison, rehab)? @ -[No] Was there de-escalation of care discussed even if they declined (Discuss DNR or withdrawal of care, Hospice)? DNR status @ -[No] What co-morbidities impacted this encounter? (DM, HTN, Smoking, COPD, CAD, Cancer, CVA, ARF, Chemo, Hep., AIDS, mental health diagnosis, sleep apnea, morbid obesity)? @ -[None] Was patient admitted / discharged? Hospital course, mention meds given and route, prescriptions, significant lab abnormalities, going to OR and other pertinent info. @ -Started antibiotics on this patient. No lab work was back at this time. Dr. Alford will take care of this patient at 3 PM (Linus Banks) 73 male to the emergency department for evaluation. Patient be admitted on IV antibiotics for pneumonia persistent dyspnea is complicated by severe COPD with COPD exacerbation (Linus Alford) - Lab Data Lab Results 03/07/23 03/07/23 03/07/23 Range/Units 14:26 14:26 14:26 WBC 12.3 H (3.8-10.6) k/uL RBC 5.55 (4.30-5.90) m/uL Hgb 17.0 (13.0-17.5) gm/dL Hct 50.3 (39.0-53.0) % MCV 90.5 (80.0-100.0) fL MCH 30.6 (25.0-35.0) pg MCHC 33.9 (31.0-37.0) g/dL RDW 14.2 (11.5-15.5) % Plt Count 212 (150-450) k/uL MPV 8.4 Neutrophils % 80 % Lymphocytes % 9 % Monocytes % 7 % Eosinophils % 2 % Basophils % 0 % Neutrophils # 9.8 H (1.3-7.7) k/uL Lymphocytes # 1.1 (1.0-4.8) k/uL Monocytes # 0.8 (0-1.0) k/uL Eosinophils # 0.2 (0-0.7) k/uL Basophils # 0.0 (0-0.2) k/uL PT 10.8 (9.0-12.0) sec INR 1.0 (<1.2) APTT 25.9 (22.0-30.0) sec Sodium 133 L (137-145) mmol/L Potassium 4.6 (3.5-5.1) mmol/L Chloride 98 (98-107) mmol/L Carbon Dioxide 28 (22-30) mmol/L Anion Gap 7 mmol/L BUN 13 (9-20) mg/dL Creatinine 0.58 L (0.66-1.25) mg/dL Est GFR (CKD-EPI)AfAm >90 (>60 ml/min/1.73 sqM) Est GFR (CKD-EPI)NonAf >90 (>60 ml/min/1.73 sqM) Glucose 108 H (74-99) mg/dL Plasma Lactic Acid Jun (0.7-2.0) mmol/L Calcium 9.1 (8.4-10.2) mg/dL Magnesium 1.7 (1.6-2.3) mg/dL Total Bilirubin 0.7 (0.2-1.3) mg/dL AST 25 (17-59) U/L ALT 25 (4-49) U/L Alkaline Phosphatase 93 (38-126) U/L Troponin I (0.000-0.034) ng/mL NT-Pro-B Natriuret Pep 45 pg/mL Total Protein 7.3 (6.3-8.2) g/dL Albumin 3.8 (3.5-5.0) g/dL 03/07/23 03/07/23 Range/Units 14:26 14:26 WBC (3.8-10.6) k/uL RBC (4.30-5.90) m/uL Hgb (13.0-17.5) gm/dL Hct (39.0-53.0) % MCV (80.0-100.0) fL MCH (25.0-35.0) pg MCHC (31.0-37.0) g/dL RDW (11.5-15.5) % Plt Count (150-450) k/uL MPV Neutrophils % % Lymphocytes % % Monocytes % % Eosinophils % % Basophils % % Neutrophils # (1.3-7.7) k/uL Lymphocytes # (1.0-4.8) k/uL Monocytes # (0-1.0) k/uL Eosinophils # (0-0.7) k/uL Basophils # (0-0.2) k/uL PT (9.0-12.0) sec INR (<1.2) APTT (22.0-30.0) sec Sodium (137-145) mmol/L Potassium (3.5-5.1) mmol/L Chloride (98-107) mmol/L Carbon Dioxide (22-30) mmol/L Anion Gap mmol/L BUN (9-20) mg/dL Creatinine (0.66-1.25) mg/dL Est GFR (CKD-EPI)AfAm (>60 ml/min/1.73 sqM) Est GFR (CKD-EPI)NonAf (>60 ml/min/1.73 sqM) Glucose (74-99) mg/dL Plasma Lactic Acid Jun 1.3 (0.7-2.0) mmol/L Calcium (8.4-10.2) mg/dL Magnesium (1.6-2.3) mg/dL Total Bilirubin (0.2-1.3) mg/dL AST (17-59) U/L ALT (4-49) U/L Alkaline Phosphatase (38-126) U/L Troponin I <0.012 (0.000-0.034) ng/mL NT-Pro-B Natriuret Pep pg/mL Total Protein (6.3-8.2) g/dL Albumin (3.5-5.0) g/dL Critical Care Time Critical Care Time: Yes Total Critical Care Time: 31 <Linus Alford - Last Filed: 03/09/23 18:02> Disposition <Linus Banks - Last Filed: 03/07/23 14:48> Is patient prescribed a controlled substance at d/c from ED?: No Time of Disposition: 16:20 <Linus Alford - Last Filed: 03/09/23 18:02> Clinical Impression: Community acquired pneumonia, Acute exacerbation of chronic obstructive pulmonary disease, Tobacco dependence, Pneumonia, Hypoxia, Lung mass, Pleural effusion, left Disposition: ADMITTED IP TO THIS HOSP Condition: Fair
--- NOTE | 2023-03-07 14:30 | XR ---
EXAMINATION TYPE: XR chest 2V DATE OF EXAM: 03/07/2023 COMPARISON: 08/30/2016 HISTORY: Shortness of breath TECHNIQUE: Frontal and lateral views of the chest are obtained. FINDINGS: Scattered senescent parenchymal changes noted. Hyperinflation compatible with COPD. Masslike infiltrate left upper lobe as well as additional infiltrate left lower lobe. Small effusions seen. Heart size is stable. Mediastinal structures are stable and grossly unremarkable. No evidence for hilar prominence. Degenerative changes dorsal spine. Chronic right-sided rib deformities. IMPRESSION: 1. Correlate for multifocal pneumonia left lung. Underlying neoplasm is not excluded and clinical cor relation is recommended as well as appropriate follow-up.
[2023-03-07 14:58] LABS: Basophils % (A) 0 %; Eosinophils # (A) 0.2 k/uL (0-0.7); Eosinophils % (A) 2 %; HCT 50.3 % (39.0-53.0); Lymphocytes # (A) 1.1 k/uL (1.0-4.8); Lymphocytes % (A) 9 %; MCH 30.6 pg (25.0-35.0); MCHC 33.9 g/dL (31.0-37.0); MCV 90.5 fL (80.0-100.0); Mean Platelet Volume 8.4; Monocytes # (A) 0.8 k/uL (0-1.0); Monocytes % (A) 7 %; Neutrophils # (A) 9.8 k/uL (1.3-7.7); Neutrophils % (A) 80 %; Platelet Count 212 k/uL (150-450); RBC 5.55 m/uL (4.30-5.90); RDW 14.2 % (11.5-15.5); WBC 12.3 k/uL (3.8-10.6)
[2023-03-07 15:16] LABS: ALT 25 U/L (4-49); AST 25 U/L (17-59); African American GFR (CKD) >90 (>60 ml/min/1.73 sqM); Albumin 3.8 g/dL (3.5-5.0); Alkaline Phosphatase 93 U/L (38-126); Anion Gap 7 mmol/L; Blood Urea Nitrogen 13 mg/dL (9-20); Calcium 9.1 mg/dL (8.4-10.2); Carbon Dioxide 28 mmol/L (22-30); Chloride 98 mmol/L (98-107); Glucose 108 mg/dL (74-99); Magnesium 1.7 mg/dL (1.6-2.3); Non-African American GFR(CKD) >90 (>60 ml/min/1.73 sqM); Potassium 4.6 mmol/L (3.5-5.1); Sodium 133 mmol/L (137-145); Total Bilirubin 0.7 mg/dL (0.2-1.3); Total Protein 7.3 g/dL (6.3-8.2)
[2023-03-07 15:17] LABS: Partial Thromboplastin Time 25.9 sec (22.0-30.0); Prothrombin Time 10.8 sec (9.0-12.0)
[2023-03-07 15:24] LABS: NT-Pro-B-Type Natriuretic Pept 45 pg/mL
[2023-03-07] MEDS ORDERED: NALOXONE 0.4 MG/ML 1 ML VIAL IV PRN (16:24)
[2023-03-07] MEDS ORDERED: ONDANSETRON 4 MG/2 ML VIAL IVP PRN (16:24)
[2023-03-07] MEDS ORDERED: AZITHROMYCIN 500 MG in SODIUM CHLORIDE 0.9% 250 ML IVPB STA (16:24)
[2023-03-07] MEDS ORDERED: MORPHINE SULFATE 4 MG/ML SYRINGE IV PRN (16:24)
[2023-03-07] MEDS ORDERED: IPRATROPIUM-ALBUTEROL 3 ML NEB INHALATION STA (17:06)
--- NOTE | 2023-03-07 17:07 | CT ---
EXAMINATION TYPE: CT angio chest CT DLP: 439.9 mGycm, Automated exposure control for dose reduction was used. DATE OF EXAM: 03/07/2023 4:51 PM COMPARISON: CT 06/28/2022, PET 06/15/2021 CLINICAL INDICATION:Male, 73 years old with history of pna,pe,ca; SOB TECHNIQUE/CONTRAST: CTA scan of the thorax is performed with IV Contrast, patient injected with 100 mL of Isovue 370, MIP images are created and reviewed these are created on a separate workstation.. FINDINGS: Pulmonary Artery: There is no evidence for a filling defect within the pulmonary vasculature to sugge st acute pulmonary embolism. The pulmonary artery is of normal size. Lungs/Pleura: There remains loculated left pleural effusion. Atelectasis changes present. Consolidati on changes in the left lung. Superimposed moderate to severe emphysema changes are present. Airway: Right upper lung. Bronchus occlusion with upstream opacification suggesting mucous plugging. New from 06/28/2022. Mucus plugging of the left lower lung airways are also present. Heart: Mildly enlarged for size. Coronary artery cusp patient's are present. Vasculature: No evidence of aortic aneurysm. Mediastinum: No gross evidence of adenopathy. Musculoskeletal: No acute osseous abnormalities right-sided remote rib fractures noted. Arthroplasty changes of the right shoulder. Scoliosis changes of the spine. Soft Tissues: Unremarkable. Lower neck: No significant findings. Upper Abdomen: Bilateral renal cysts are present. Left nonobstructing 3 mm calculus. IMPRESSION : 1. No evidence of pulmonary embolism. 2. Loculated left pleural effusion with associated atelectasis. Consolidation changes in the left ant erior lung are new from 06/28/2022. Correlate for infectious/inflammatory process. 3. 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 Findings concerning for o bstructing mass. Bronchoscopy recommended to follow-up PET/CT. Findings are new from prior CT. Additi onal mucous plugging of the left lower lung airways. 4. Moderate to severe emphysema changes.
[2023-03-07] MEDS: SODIUM CHLORIDE 0.9% 1,000 ML IV SCH (17:42)
[2023-03-07] MEDS ORDERED: ALBUTEROL NEBULIZED 2.5 MG/3 ML INHALATION SCH (20:00)
[2023-03-07] MEDS ORDERED: BETAMETHASONE DIPROPIONATE 0.05% CREAM 15 GM TUBE TOPICAL PRN (21:30)
[2023-03-07] MEDS: ALBUTEROL NEBULIZED 2.5 MG/3 ML INHALATION PRN (23:23)
[2023-03-08] MEDS: ALBUTEROL NEBULIZED 2.5 MG/3 ML INHALATION PRN (03:45)
[2023-03-08] MEDS: FORMOTEROL FUMARATE 20 MCG/2 ML NEBU INHALATION SCH ×2 (07:30→20:10)
[2023-03-08] MEDS: BUDESONIDE 1 MG/2 ML NEBU INHALATION SCH ×2 (07:30→20:10)
[2023-03-08] MEDS ORDERED: SYMBICORT 80-4.5 MCG INHALER INHALATION SCH (08:00)
[2023-03-08] MEDS ORDERED: ALBUTEROL NEBULIZED 2.5 MG/3 ML INHALATION SCH (08:00)
[2023-03-08] MEDS ORDERED: IPRATROPIUM 0.5 MG/2.5 ML NEBU INHALATION SCH (08:00)
[2023-03-08] MEDS ORDERED: methylPREDNISolone SOD SUCCI 125 MG/2 ML VIAL IV STA (08:02)
[2023-03-08] MEDS: amLODIPine 10 MG TAB PO SCH (08:16)
[2023-03-08] MEDS: lisinopriL 20 MG TAB PO SCH (08:16)
[2023-03-08] MEDS: BISOPROLOL-HCTZ 5-6.25 MG 1 EACH TAB PO SCH (08:16)
[2023-03-08] MEDS: PANTOPRAZOLE 40 MG TABLET PO SCH ×2 (08:20→20:11)
[2023-03-08 09:25] LABS: Basophils # (A) 0.02 X 10*3/uL (0.00-0.10); Basophils % (A) 0.2 %; Eosinophils # (A) 0 X 10*3/uL (0.04-0.35); Eosinophils % (A) 0 %; HCT 49.4 % (39.6-50.0); HGB 15.6 d/dL (13.0-17.0); Lymphocytes # (A) 0.66 X 10*3/uL (0.90-5.00); Lymphocytes % (A) 5.8 %; MCH 29.4 pg (27.0-32.0); MCHC 31.6 d/dL (32.0-37.0); MCV 93.2 FL (80.0-97.0); Mean Platelet Volume 10.8 FL (9.5-12.2); Monocytes # (A) 0.32 X 10*3/uL (0.20-1.00); Monocytes % (A) 2.8 %; NRBC Per 100 WBC 0 X 10*3/uL (0.00-0.01); Neutrophils % (A) 90.8 %; Platelet Count 228 X 10*3/uL (140-440); RDW 14.9 % (11.5-14.5); WBC 11.34 X 10*3/uL (4.50-10.00)
[2023-03-08 11:01] LABS: BUN/Creat Ratio 18.44 Ratio (12.00-20.00); Blood Urea Nitrogen 16.6 mg/dL (9.0-27.0); Chloride 103 mmol/L (96-109); Glucose 132 mg/dL (70-110); Magnesium 1.8 mg/dL (1.5-2.4); Potassium 4.6 mmol/L (3.5-5.5); Sodium 142 mmol/L (135-145)
[2023-03-08 11:02] LABS: ALT 22 U/L (10-49); AST 19 U/L (14-35); Albumin 3.7 d/dL (3.8-4.9); Albumin/Globulin Ratio 1.42 Ratio (1.60-3.17); Alkaline Phosphatase 80 U/L (41-126); Globulin 2.6 d/dL (1.6-3.3); Phosphorus 4.3 mg/dL (2.4-5.1); Total Bilirubin <0.2 mg/dL (0.3-1.2); Total Protein 6.3 d/dL (6.2-8.2)
--- NOTE | 2023-03-08 11:25 | P.CNPUL ---
History of Present Illness Consult date: 03/08/23 Requesting physician: Antoine Nichols Reason for consult: dyspnea, COPD, abnormal CXR/CT Chief complaint: Shortness of breath History of present illness: This is 73-year-old male patient with a known history of hypertension, hyperlipidemia, chronic and ongoing tobacco dependence of greater than 50 years, chronic obstructive pulmonary disease with an FEV1 value. 7% of predicted. He is not oxygen dependent. He follows with Dr. Nguyen in our office. He did have a computed tomography scan in June 2022 that revealed a new right apical nodule measuring 10 x 7 mm that was being followed in the outpatient setting. He presented here to the emergency room yesterday with increasing shortness of breath, cough and congestion. No fever or chills. No nausea or vomiting. No chest pain. His saturations were as low as 84% on room air. He's currently on 4 L nasal cannula. Chest x-ray shows multifocal pneumonia in the left lung. Underlying neoplasm not excluded. CT angiogram ruled out pulmonary embolism. There is a loculated left pleural effusion with associated atelectasis. Consolidation changes and left anterior lung are new compared to June 2022. Right upper lung bronchus with the large airway occlusion with upstream plugging. Findings concerning for obstructing mass. Findings are new compared to June 2022. Moderate to severe emphysematous changes. White cou nt 11.4. Hemoglobin 15.6. Platelets 228. Sodium 142. Potassium 4.6. Bicarb 27. BUN 16. Creatinine 0.9. Glucose 132. Influenza screen negative. RSV screen negative. COVID-19 screen negative. The patient is seen today in consultation on the regular medical floor. He is currently sitting up in bed. Awake and alert in no acute distress. He is to submit with exertion. Dyspneic with minimal conversation. He is maintaining O2 saturation in the 90s on 4 L/m per nasal cannula. Still somewhat bronchospastic and wheezing. Review of Systems REVIEW OF SYSTEMS: CONSTITUTIONAL: Denies any recent significant weight loss or weight gain. EYES: Denies change in vision. EARS, NOSE, MOUTH, THROAT: Denies headaches, denies sore throat. CARDIOVASCULAR: Denies chest pain, palpitations or syncopal episodes. RESPIRATORY: Positive for shortness of breath, cough, congestion no hemoptysis. GASTROINTESTINAL: Denies change in appetite, denies abdominal pain GENITOURINARY: Denies hematuria, denies infections. MUSKULOSKELETAL: Denies pain, denies swelling. INTEGUMENTARY: Denies rash, denies eczema. NEUROLOGICAL: Denies recent memory loss, no recent seizure activity. PSYCHIATRIC: Denies anxiety, denies depression. HEMATOLOGIC/LYMPHATIC: Denies anemia, denies enlarged lymph nodes. Past Medical History Past Medical History: COPD, GERD/Reflux, Hyperlipidemia, Hypertension Additional Past Medical History / Comment(s): COPD, diverticulosis, History of Any Multi-Drug Resistant Organisms: None Reported Past Surgical History: Orthopedic Surgery, Tonsillectomy Additional Past Surgical History / Comment(s): right ankle surgery, COLONOSCOPY Past Anesthesia/Blood Transfusion Reactions: No Reported Reaction Past Psychological History: No Psychological Hx Reported Smoking Status: Current every day smoker Past Alcohol Use History: None Reported Additional Past Alcohol Use History / Comment(s): Smoking 1 ppd since age 17, now down to less than 1/2 pack Past Drug Use History: None Reported - Past Family History Mother Family Medical History: Coronary Artery Disease (CAD) Father Family Medical History: Cancer Additional Family Medical History / Comment(s): lymphoma Medications and Allergies Home Medications Medication Instructions Recorded Confirmed Type Bisoprolol-Hctz 5-6.25 mg [Ziac 1 tab PO DAILY 08/24/16 03/07/23 History 5-6.25] Simvastatin [Zocor] 40 mg PO HS 08/24/16 03/07/23 History Ubidecarenone [Co Q-10] 10 mg PO DAILY@1200 08/24/16 03/07/23 History amLODIPine BESYLATE/BENAZEPRIL 1 cap PO DAILY 08/24/16 03/07/23 History [amLODIPine BESYLATE/BENAZEPRIL 10-20 mg] Fluticasone/Umeclidin/Vilanter 1 puff INHALATION RT-DAILY 07/25/20 03/07/23 History [Trelegy Ellipta 100-62.5-25] Omeprazole Magnesium [PriLOSEC OTC] 20 mg PO BID 07/25/20 03/07/23 History Vit C/E/Zn/Coppr/Lutein/Zeaxan 1 tab PO DAILY@1200 07/25/20 03/07/23 History [Preservision Areds 2 Softgel] Albuterol Inhaler [Ventolin Hfa 1 - 2 puff INHALATION RT-Q6H PRN 03/07/23 03/07/23 History Inhaler] Albuterol Nebulized [Ventolin 2.5 mg INHALATION RT-TID 03/07/23 03/07/23 History Nebulized] Fluocinonide 0.05% Solution 1 applic TOPICAL HS PRN 03/07/23 03/07/23 History Ketoconazole 2% Shampoo [Nizoral] 1 applic TOPICAL DAILY PRN 03/07/23 03/07/23 History Krill/Om-3/Dha/Epa/Phospho/Ast 1 cap PO DAILY@1200 03/07/23 03/07/23 History [Krill Oil 500 mg Softgel] Turmeric Root Extract [Turmeric] 500 mg PO HS 03/07/23 03/07/23 History Allergies Allergy/AdvReac Type Severity Reaction Status Date / Time No Known Allergies Allergy Verified 03/07/23 15:20 Physical Exam Vitals: Vital Signs Temp Pulse Pulse Resp BP BP Pulse Ox 03/08/23 08:00 22 03/08/23 07:53 97.6 F 96 24 119/65 85 L 03/08/23 07:41 99 03/08/23 07:31 98 03/08/23 03:55 96 03/08/23 03:45 92 03/08/23 02:35 91 L 03/08/23 01:10 98.6 F 109 H 24 107/63 89 L 03/07/23 23:31 88 03/07/23 23:23 80 03/07/23 23:18 99 20 92 L 03/07/23 21:03 100 03/07/23 20:52 98.8 F 106 H 22 122/75 89 L 03/07/23 20:45 100 03/07/23 20:00 22 03/07/23 18:25 98 03/07/23 18:15 95 03/07/23 17:00 95 20 115/95 91 L 03/07/23 15:30 121/84 92 L 03/07/23 14:56 90 03/07/23 14:51 94 25 H 121/84 92 L 03/07/23 14:47 88 03/07/23 14:30 127/85 94 L 03/07/23 14:00 123/87 91 L 03/07/23 13:57 84 L 03/07/23 13:47 97.6 F 92 22 138/82 91 L Intake and Output 03/07/23 03/08/23 03/08/23 22:59 06:59 14:59 Intake Total 1140 Balance 1140 Intake: Intake, IV Titration 900 Amount Sodium Chloride 0.9% 1, 900 000 ml @ 75 mls/hr IV . [id number] [facility] Rx#:[id number] Oral 240 Other: # Voids 1 1 Weight 77.111 kg GENERAL EXAM: Alert, pleasant 73-year-old male, on 4 L nasal cannula, fairly comfortable in no apparent distress. HEAD: Normocephalic. EYES: Normal reaction of pupils, equal size. NOSE: Clear with pink turbinates. THROAT: No erythema or exudates. NECK: No masses, no JVD. CHEST: No chest wall deformity. LUNGS: Equal air entry with bilateral end expiratory wheeze, scattered rhonchi, diminished. CVS: S1 and S2 normal with no audible murmur, regular rhythm. ABDOMEN: No hepatosplenomegaly, normal bowel sounds, no guarding or rigidity. SPINE: No scoliosis or deformity SKIN: No rashes CENTRAL NERVOUS SYSTEM: No focal deficits, tone is normal in all 4 extremities. EXTREMITIES: There is no peripheral edema. No clubbing, no cyanosis. Peripheral pulses are intact. Results - Laboratory Findings CBC and BMP: 03/08/23 06:16 03/08/23 06:16 PT/INR, D-dimer PT 10.8 sec (9.0-12.0) 03/07/23 14:26 INR 1.0 (<1.2) 03/07/23 14:26 Abnormal lab findings: Abnormal Labs 03/07/23 03/07/23 03/08/23 14:26 14:26 06:16 WBC 12.3 H 11.34 H MCHC 31.6 L RDW 14.9 H Neutrophils # 9.8 H 10.30 H Lymphocytes # 0.66 L Eosinophils # 0 L Sodium 133 L Creatinine 0.58 L Glucose 108 H Total Bilirubin Albumin Albumin/Globulin Ratio 03/08/23 06:16 WBC MCHC RDW Neutrophils # Lymphocytes # Eosinophils # Sodium Creatinine Glucose 132 H Total Bilirubin <0.2 L Albumin 3.7 L Albumin/Globulin Ratio 1.42 L - Diagnostic Findings Chest x-ray: image reviewed CT scan - chest: image reviewed Assessment and Plan Assessment: Acute hypoxemic respiratory failure secondary to an acute exacerbation of chronic obstructive pulmonary disease complicated by postobstructive pneumonia. CT angiogram ruled out pulmonary embolism. There is a loculated left pleural effusion with associated atelectasis. Consolidation changes and left anterior lung are new compared to June 2022. Right upper lung bronchus with the large airway occlusion with upstream plugging. Findings concerning for obstructing mass. Findings are new compared to June 2022. Moderate to severe emphysematous changes. History of right apical nodule measuring 10.7 mm in June 2022 Chronic obstructive pulmonary disease his FEV1 value 57% of predicted Chronic and ongoing tobacco dependence greater than 50 years Hypertension Hyperlipidemia History of gastroesophageal reflux disease Plan: The patient was seen and evaluated Chest x-ray, CAT scan, medications and labs reviewed Add Pulmicort and Perforomist inhalations Continue DuoNeb inhalations Continue steroids Continue ceftriaxone and azithromycin Will most likely need bronchoscopy with lung biopsies We will continue to follow and make further recommendations based on his clinical status I have personally seen and examined the patient, performed the documentation and the assessment and plan as written. Number of minutes spent on the visit: 20.
[2023-03-08] MEDS: IPRATROPIUM-ALBUTEROL 3 ML NEB INHALATION SCH ×3 (11:31→20:10)
--- NOTE | 2023-03-08 11:53 | P.HPIM ---
History of Present Illness H&P Date: 03/08/23 Chief Complaint: Dyspnea acute exacerbation of chronic COPD Mr. Rhodes is 73-year-old male well-known to the practice, known history of hypertension hyperlipidemia chronic ongoing tobacco dependence greater than 50 years COPD with FEV1 of 7% predicted. Pimentel does state that he cut back on his smoking and only smokes 10 cigarettes a day, most recent CT from a year ago demonstrated a new right apical nodule measuring 10 x 7 mm, being followed as an outpatient. Presents to the emergency room yesterday with increasing shortness of breath cough and congestion. No fever no chills. No nausea no vomiting no chest pain. His saturation rates resolutely 4% on room air is currently on 4 L nasal cannula chest x-ray shows multifocal pneumonia in the left lobe and some infiltrates on the right side. Underlying neoplasm could not be excluded CT angiogram was negative for PE. There is a loculated left pleural effusion with associated atelectasis. Patient has right upper lung bronchus bronchiolitis with large airway occlusion these findings are new compared to June 2022 moderate to severe emphysematous changes Review of Systems Constitutional: Reports night sweats, Reports sweats, Reports weakness Ears, nose, mouth and throat: Reports as per HPI Cardiovascular: Reports decreased exercise tolerance, Reports dyspnea on exertion, Reports high blood pressure, Reports orthopnea Respiratory: Reports congestion, Reports cough, Reports cough with sputum, Reports dyspnea, Reports respiratory infections Gastrointestinal: Reports as per HPI Genitourinary: Reports as per HPI Musculoskeletal: Reports as per HPI Integumentary: Reports as per HPI Neurological: Reports as per HPI Psychiatric: Reports as per HPI Past Medical History Past Medical History: COPD, GERD/Reflux, Hyperlipidemia, Hypertension Additional Past Medical History / Comment(s): COPD, diverticulosis, History of Any Multi-Drug Resistant Organisms: None Reported Past Surgical History: Orthopedic Surgery, Tonsillectomy Additional Past Surgical History / Comment(s): right ankle surgery, COLONOSCOPY Past Anesthesia/Blood Transfusion Reactions: No Reported Reaction Past Psychological History: No Psychological Hx Reported Smoking Status: Current every day smoker Past Alcohol Use History: None Reported Additional Past Alcohol Use History / Comment(s): Smoking 1 ppd since age 17, now down to less than 1/2 pack Past Drug Use History: None Reported - Past Family History Mother Family Medical History: Coronary Artery Disease (CAD) Father Family Medical History: Cancer Additional Family Medical History / Comment(s): lymphoma Medications and Allergies Home Medications Medication Instructions Recorded Confirmed Type Bisoprolol-Hctz 5-6.25 mg [Ziac 1 tab PO DAILY 08/24/16 03/07/23 History 5-6.25] Simvastatin [Zocor] 40 mg PO HS 08/24/16 03/07/23 History Ubidecarenone [Co Q-10] 10 mg PO DAILY@1200 08/24/16 03/07/23 History amLODIPine BESYLATE/BENAZEPRIL 1 cap PO DAILY 08/24/16 03/07/23 History [amLODIPine BESYLATE/BENAZEPRIL 10-20 mg] Fluticasone/Umeclidin/Vilanter 1 puff INHALATION RT-DAILY 07/25/20 03/07/23 History [Trelegy Ellipta 100-62.5-25] Omeprazole Magnesium [PriLOSEC OTC] 20 mg PO BID 07/25/20 03/07/23 History Vit C/E/Zn/Coppr/Lutein/Zeaxan 1 tab PO DAILY@1200 07/25/20 03/07/23 History [Preservision Areds 2 Softgel] Albuterol Inhaler [Ventolin Hfa 1 - 2 puff INHALATION RT-Q6H PRN 03/07/23 03/07/23 History Inhaler] Albuterol Nebulized [Ventolin 2.5 mg INHALATION RT-TID 03/07/23 03/07/23 History Nebulized] Fluocinonide 0.05% Solution 1 applic TOPICAL HS PRN 03/07/23 03/07/23 History Ketoconazole 2% Shampoo [Nizoral] 1 applic TOPICAL DAILY PRN 03/07/23 03/07/23 History Krill/Om-3/Dha/Epa/Phospho/Ast 1 cap PO DAILY@1200 03/07/23 03/07/23 History [Krill Oil 500 mg Softgel] Turmeric Root Extract [Turmeric] 500 mg PO HS 03/07/23 03/07/23 History Allergies Allergy/AdvReac Type Severity Reaction Status Date / Time No Known Allergies Allergy Verified 03/07/23 15:20 Physical Exam Osteopathic Statement: *. No significant issues noted on an osteopathic structural exam other than those noted in the History and Physical/Consult. Vitals: Vital Signs Temp Pulse Pulse Resp BP BP Pulse Ox 03/08/23 11:32 97 03/08/23 08:00 22 03/08/23 07:53 97.6 F 96 24 119/65 85 L 03/08/23 07:41 99 03/08/23 07:31 98 03/08/23 03:55 96 03/08/23 03:45 92 03/08/23 02:35 91 L 03/08/23 01:10 98.6 F 109 H 24 107/63 89 L 03/07/23 23:31 88 03/07/23 23:23 80 03/07/23 23:18 99 20 92 L 03/07/23 21:03 100 03/07/23 20:52 98.8 F 106 H 22 122/75 89 L 03/07/23 20:45 100 03/07/23 20:00 22 03/07/23 18:25 98 03/07/23 18:15 95 03/07/23 17:00 95 20 115/95 91 L 03/07/23 15:30 121/84 92 L 03/07/23 14:56 90 03/07/23 14:51 94 25 H 121/84 92 L 03/07/23 14:47 88 03/07/23 14:30 127/85 94 L 03/07/23 14:00 123/87 91 L 03/07/23 13:57 84 L 03/07/23 13:47 97.6 F 92 22 138/82 91 L Intake and Output 03/07/23 03/08/23 03/08/23 22:59 06:59 14:59 Intake Total 1140 Balance 1140 Intake: Intake, IV Titration 900 Amount Sodium Chloride 0.9% 1, 900 000 ml @ 75 mls/hr IV . [id number] [facility] Rx#:[id number] Oral 240 Other: # Voids 1 1 Weight 77.111 kg General: [Patient awake, alert and oriented times 3. Patient in no acute distress. Patient working to breathe HEENT: [PERRL. EOMI. No pharyngeal erythema or exudate.] Neck: [No adenopathy.] Cardiac: [Heart regular in rate and rhythm. No S3. No S4. No clicks, rubs. No murmur.] Lungs: Diminished breath sounds bilaterally with consolidation bilaterally left greater than the right Abdomen: [No mass. No organomegaly. Bowel sounds presnt and normoactive in all 4 quadrants.] Extremes: [No edema no cyanosis no claudication normal pulses] : Normal male genitalia Musculoskeletal: No joint erythema, edema or tenderness. Skin: No rash. Neurologic: No lateralizing deficits. CN II - XII grossly intact. Lymphatic: No adenopathy. Results CBC & Chem 7: 03/08/23 06:16 03/08/23 06:16 Labs: Abnormal Lab Results - Last 24 Hours (Table) 03/07/23 03/07/23 03/08/23 Range/Units 14:26 14:26 06:16 WBC 12.3 H 11.34 H (3.8-10.6) k/uL MCHC 31.6 L (32.0-37.0) d/dL RDW 14.9 H (11.5-14.5) % Neutrophils # 9.8 H 10.30 H (1.3-7.7) k/uL Lymphocytes # 0.66 L (0.90-5.00) X 10*3/uL Eosinophils # 0 L (0.04-0.35) X 10*3/uL Sodium 133 L (137-145) mmol/L Creatinine 0.58 L (0.66-1.25) mg/dL Glucose 108 H (74-99) mg/dL Total Bilirubin (0.3-1.2) mg/dL Albumin (3.8-4.9) d/dL Albumin/Globulin Ratio (1.60-3.17) Ratio 03/08/23 Range/Units 06:16 WBC (3.8-10.6) k/uL MCHC (32.0-37.0) d/dL RDW (11.5-14.5) % Neutrophils # (1.3-7.7) k/uL Lymphocytes # (0.90-5.00) X 10*3/uL Eosinophils # (0.04-0.35) X 10*3/uL Sodium (137-145) mmol/L Creatinine (0.66-1.25) mg/dL Glucose 132 H (74-99) mg/dL Total Bilirubin <0.2 L (0.3-1.2) mg/dL Albumin 3.7 L (3.8-4.9) d/dL Albumin/Globulin Ratio 1.42 L (1.60-3.17) Ratio Thrombosis Risk Factor Assmnt - DVT/VTE Prophylaxis DVT/VTE Prophylaxis: Pharmacologic Prophylaxis ordered - Choose All That Apply Any of the Below Risk Factors Present?: Yes Each Factor Represents 1 point: Abnormal pulmonary function (COPD), Obesity (BMI >25) Other Risk Factors: Yes Each Risk Factor Represents 2 Points: Age 61-74 years, Malignancy Other congenital or acquired thrombophilia - If yes, enter type in comment: No Thrombosis Risk Factor Assessment Total Risk Factor Score: 6 Thrombosis Risk Factor Assessment Level: High Risk Assessment and Plan (1) Acute exacerbation of chronic obstructive pulmonary disease Current Visit: Yes Status: Acute Code(s): J44.1 - CHRONIC OBSTRUCTIVE PULMONARY DISEASE W (ACUTE) EXACERBATION SNOMED Code(s): 105845910 (2) Community acquired pneumonia Current Visit: Yes Status: Acute Code(s): J18.9 - PNEUMONIA, UNSPECIFIED ORGANISM SNOMED Code(s): 229540565 (3) Hypoxia Current Visit: Yes Status: Acute Code(s): R09.02 - HYPOXEMIA SNOMED Code(s): 574882528 (4) Pneumonia Current Visit: Yes Status: Acute Code(s): J18.9 - PNEUMONIA, UNSPECIFIED ORGANISM SNOMED Code(s): 243618474 (5) Tobacco dependence Current Visit: Yes Status: Acute Code(s): F17.200 - NICOTINE DEPENDENCE, UNSPECIFIED, UNCOMPLICATED SNOMED Code(s): 80901181 (6) Atherosclerosis of abdominal aorta Current Visit: No Status: Acute Code(s): I70.0 - ATHEROSCLEROSIS OF AORTA SNOMED Code(s): 032206606 (7) Chest wall trauma Current Visit: No Status: Acute Code(s): S29.9XXA - UNSPECIFIED INJURY OF THORAX, INITIAL ENCOUNTER SNOMED Code(s): 33554175 (8) Diverticulitis large intestine w/o perforation or abscess w/o bleeding Current Visit: No Status: Acute Code(s): K57.32 - DVTRCLI OF LG INT W/O PERFORATION OR ABSCESS W/O BLEEDING SNOMED Code(s): 4477526 Plan: Acute exacerbation of chronic COPD with hypoxic respiratory failure Left lung changes new compared to 2021 Pulmonary consultation appreciated and reviewed Likely right lung mass further studies warranted History of apical lung nodule Chronic ongoing tobacco use and abuse Hypertension hyperlipidemia History of gastroesophageal reflux disease We'll continue IV antibiotic therapy for the acquired pneumonia We'll follow very closely Time with Patient: Greater than 30
[2023-03-08] MEDS ORDERED: NON FORMULARY DRUG (Ubidecarenone [Co Q-10] 100 MG Capsule) PO SCH (12:00)
[2023-03-08 12:21] LABS: Glucose,Whole Blood 160 mg/dL (70-110)
[2023-03-08] MEDS: methylPREDNISolone SOD SUCCI 125 MG/2 ML VIAL IV SCH ×3 (12:43→23:41)
[2023-03-08] MEDS: VIT A,C & E-LUTEIN-MINERALS 1 EACH TAB PO SCH (12:43)
[2023-03-08] MEDS: SODIUM CHLORIDE 0.9% 1,000 ML IV SCH ×3 (12:45→23:41)
[2023-03-08] MEDS ORDERED: DEXTROSE 50% SYRINGE 50 ML IVP PRN ×2 (17:45)
[2023-03-08 17:46] LABS: Glucose,Whole Blood 119 mg/dL (70-110)
[2023-03-08] MEDS: ATORVASTATIN 20 MG TAB PO SCH (20:11)
[2023-03-08 21:57] LABS: Glucose,Whole Blood 153 mg/dL (70-110)
[2023-03-08] MEDS: INSULIN ASPART (NovoLOG) 100 UNIT/ML VIAL SQ SCH (22:07)
[2023-03-08] MEDS: IPRATROPIUM-ALBUTEROL 3 ML NEB INHALATION PRN (23:15)
[2023-03-09] MEDS: IPRATROPIUM-ALBUTEROL 3 ML NEB INHALATION PRN (03:08)
[2023-03-09] MEDS: methylPREDNISolone SOD SUCCI 125 MG/2 ML VIAL IV SCH ×4 (05:44→23:28)
[2023-03-09 07:28] LABS: Glucose,Whole Blood 133 mg/dL (70-110)
[2023-03-09] MEDS: IPRATROPIUM-ALBUTEROL 3 ML NEB INHALATION SCH ×4 (07:35→20:17)
[2023-03-09] MEDS: BUDESONIDE 1 MG/2 ML NEBU INHALATION SCH ×2 (07:36→20:17)
[2023-03-09] MEDS: FORMOTEROL FUMARATE 20 MCG/2 ML NEBU INHALATION SCH ×2 (07:36→20:16)
[2023-03-09] MEDS: INSULIN ASPART (NovoLOG) 100 UNIT/ML VIAL SQ SCH ×4 (08:53→20:16)
[2023-03-09] MEDS: lisinopriL 20 MG TAB PO SCH (08:57)
[2023-03-09] MEDS: SODIUM CHLORIDE 0.9% 1,000 ML IV SCH ×2 (08:57→20:51)
[2023-03-09] MEDS: PANTOPRAZOLE 40 MG TABLET PO SCH ×2 (08:57→20:51)
[2023-03-09] MEDS: amLODIPine 10 MG TAB PO SCH (08:57)
[2023-03-09] MEDS: BISOPROLOL-HCTZ 5-6.25 MG 1 EACH TAB PO SCH (08:57)
--- NOTE | 2023-03-09 10:05 | P.PN ---
Subjective Progress Note Date: 03/09/23 This is 73-year-old male patient with a known history of hypertension, hyperlipidemia, chronic and ongoing tobacco dependence of greater than 50 years, chronic obstructive pulmonary disease with an FEV1 value. 7% of predicted. He is not oxygen dependent. He follows with Dr. Nguyen in our office. He did have a computed tomography scan in June 2022 that revealed a new right apical nodule measuring 10 x 7 mm that was being followed in the outpatient setting. He presented here to the emergency room yesterday with increasing shortness of breath, cough and congestion. No fever or chills. No nausea or vomiting. No chest pain. His saturations were as low as 84% on room air. He's currently on 4 L nasal cannula. Chest x-ray shows multifocal pneumonia in the left lung. Underlying neoplasm not excluded. CT angiogram ruled out pulmonary embolism. There is a loculated left pleural effusion with associated atelectasis. Consolidation changes and left anterior lung are new compared to June 2022. Right upper lung bronchus with the large airway occlusion with upstream plugging. Findings concerning for obstructing mass. Findings are new compared to June 2022. Moderate to severe emphysematous changes. White count 11.4. Hemoglobin 15.6. Platelets 228. Sodium 142. Potassium 4.6. Bicarb 27. BUN 16. Creatinine 0.9. Glucose 132. Influenza screen negative. RSV screen negative. COVID-19 screen negative. The patient is seen today in consultation on the regular medical floor. He is currently sitting up in bed. Awake and alert in no acute distress. He is to submit with exertion. Dyspneic with minimal conversation. He is maintaining O2 saturation in the 90s on 4 L/m per nasal cannula. Still somewhat bronchospastic and wheezing. The patient is seen today 03/09/2023 in follow-up on the regular medical floor. He is currently sitting up in bed. Given a breathing treatment. Still with dyspnea on exertion. Dyspnea on conversation. A bit better today compared to yesterday. Not quite back to his baseline. He is maintaining O2 saturations in the 90s on 4 L/m per nasal cannula. Normal saline at 75 ML's per hour. Blood glucose 133. He is continued on DuoNeb inhalations, Pulmicort and Perforomist inhalations, Solu-Medrol. Objective - Vital Signs Vital signs: Vital Signs Temp 98.3 F 03/09/23 07:21 Pulse 102 H 03/09/23 08:02 Resp 22 03/09/23 07:21 BP 113/68 03/09/23 07:21 Pulse Ox 91 L 03/09/23 07:38 FiO2 Intake & Output 03/08/23 03/09/23 03/09/23 18:59 06:59 18:59 Intake Total 1020 Output Total 850 Balance 170 Intake: Intake, IV Titration 900 Amount Sodium Chloride 0.9% 1, 900 000 ml @ 75 mls/hr IV . [id number] [facility] Rx#:[id number] Oral 120 Output: Urine 850 Other: # Voids 3 # Bowel Movements 0 - Exam GENERAL EXAM: Alert, 73-year-old male, on 4 L nasal cannula, comfortable in no apparent distress. HEAD: Normocephalic. EYES: Normal reaction of pupils, equal size. NOSE: Clear with pink turbinates. THROAT: No erythema or exudates. NECK: No masses, no JVD. CHEST: No chest wall deformity. LUNGS: Equal air entry with bilateral end expiratory wheeze, scattered rhonchi, diminished. CVS: S1 and S2 normal with no audible murmur, regular rhythm. ABDOMEN: No hepatosplenomegaly, normal bowel sounds, no guarding or rigidity. SPINE: No scoliosis or deformity SKIN: No rashes CENTRAL NERVOUS SYSTEM: No focal deficits, tone is normal in all 4 extremities. EXTREMITIES: There is no peripheral edema. No clubbing, no cyanosis. Peripheral pulses are intact. - Labs CBC & Chem 7: 03/08/23 06:16 03/08/23 06:16 Labs: Abnormal Lab Results - Last 24 Hours (Table) 03/08/23 03/08/23 03/08/23 Range/Units 06:16 12:19 17:44 Glucose 132 H (70-110) mg/dL POC Glucose (mg/dL) 160 H 119 H (70-110) mg/dL Total Bilirubin <0.2 L (0.3-1.2) mg/dL Albumin 3.7 L (3.8-4.9) d/dL Albumin/Globulin Ratio 1.42 L (1.60-3.17) Ratio 03/08/23 03/09/23 Range/Units 21:56 07:26 Glucose (70-110) mg/dL POC Glucose (mg/dL) 153 H 133 H (70-110) mg/dL Total Bilirubin (0.3-1.2) mg/dL Albumin (3.8-4.9) d/dL Albumin/Globulin Ratio (1.60-3.17) Ratio Microbiology - Last 24 Hours (Table) 03/07/23 14:26 Blood Culture - Preliminary Blood Assessment and Plan Assessment: Acute hypoxemic respiratory failure secondary to an acute exacerbation of chronic obstructive pulmonary disease complicated by postobstructive pneumonia. CT angiogram ruled out pulmonary embolism. There is a loculated left pleural effusion with associated atelectasis. Consolidation changes and left anterior lung are new compared to June 2022. Right upper lung bronchus with the large airway occlusion with upstream plugging. Findings concerning for obstructing mass. Findings are new compared to June 2022. Moderate to severe emphysematous changes. History of right apical nodule measuring 10.7 mm in June 2022 Chronic obstructive pulmonary disease his FEV1 value 57% of predicted Chronic and ongoing tobacco dependence greater than 50 years Hypertension Hyperlipidemia History of gastroesophageal reflux disease Plan: The patient was seen and evaluated Medications and labs reviewed Procalcitonin pending Continue azithromycin Continue bronchodilators, steroids Follow-up chest x-ray in a.m. Titrate the FiO2 as tolerated Will most likely need bronchoscopy with lung biopsies We will continue to follow I have personally seen and examined the patient, performed the documentation and the assessment and plan as written. Number of minutes spent on the visit: 10.
--- NOTE | 2023-03-09 10:39 | P.PN ---
Subjective Progress Note Date: 03/09/23 Principal diagnosis: Acute exacerbation chronic COPD, pneumonia, tobacco use syndrome Patient is awake alert oriented 3, vital signs are stable, patient is afebrile, somewhat tachycardic still labored breathing, dyspnea on exertion, patient on 4 L O2 per nasal cannula patient is getting maximal pulmonary treatment including DuoNeb inhalations Pulmicort and Solu-Medrol, sats are in the 90s Objective - Vital Signs Vital signs: Vital Signs Temp 98.3 F 03/09/23 07:21 Pulse 102 H 03/09/23 08:02 Resp 22 03/09/23 08:00 BP 113/68 03/09/23 07:21 Pulse Ox 91 L 03/09/23 07:38 FiO2 Intake & Output 03/08/23 03/09/23 03/09/23 18:59 06:59 18:59 Intake Total 1020 Output Total 850 Balance 170 Intake: Intake, IV Titration 900 Amount Sodium Chloride 0.9% 1, 900 000 ml @ 75 mls/hr IV . [id number] [facility] Rx#:[id number] Oral 120 Output: Urine 850 Other: # Voids 3 # Bowel Movements 0 - Exam General: [Patient awake, alert and oriented times 3. Patient in no acute dist ress.] Minimal labored breathing HEENT: [PERRL. EOMI. No pharyngeal erythema or exudate.] Neck: [No adenopathy.] Cardiac: [Heart regular in rate and rhythm. No S3. No S4. No clicks, rubs. No murmur.] Lungs: Breath sounds diminished bilaterally, bilateral rhonchi with expiration wheezes. Exchange is still poor Abdomen: [No mass. No organomegaly. Bowel sounds presnt and normoactive in all 4 quadrants.] Extremes: [No edema no cyanosis no claudication normal pulses] : Normal male genitalia Musculoskeletal: [No joint erythema, edema or tenderness.] Skin: [No rash.] Neurologic: [No lateralizing deficits. CN II - XII grossly intact.] Lymphatic: [No adenopathy.] - Labs CBC & Chem 7: 03/08/23 06:16 03/08/23 06:16 Labs: Abnormal Lab Results - Last 24 Hours (Table) 03/08/23 03/08/23 03/08/23 Range/Units 06:16 12:19 17:44 Glucose 132 H (70-110) mg/dL POC Glucose (mg/dL) 160 H 119 H (70-110) mg/dL Total Bilirubin <0.2 L (0.3-1.2) mg/dL Albumin 3.7 L (3.8-4.9) d/dL Albumin/Globulin Ratio 1.42 L (1.60-3.17) Ratio 03/08/23 03/09/23 Range/Units 21:56 07:26 Glucose (70-110) mg/dL POC Glucose (mg/dL) 153 H 133 H (70-110) mg/dL Total Bilirubin (0.3-1.2) mg/dL Albumin (3.8-4.9) d/dL Albumin/Globulin Ratio (1.60-3.17) Ratio Microbiology - Last 24 Hours (Table) 03/07/23 14:26 Blood Culture - Preliminary Blood Assessment and Plan (1) Acute exacerbation of chronic obstructive pulmonary disease Current Visit: Yes Status: Acute Code(s): J44.1 - CHRONIC OBSTRUCTIVE PULMONARY DISEASE W (ACUTE) EXACERBATION SNOMED Code(s): 654791980 (2) Community acquired pneumonia Current Visit: Yes Status: Acute Code(s): J18.9 - PNEUMONIA, UNSPECIFIED ORGANISM SNOMED Code(s): 675836561 (3) Hypoxia Current Visit: Yes Status: Acute Code(s): R09.02 - HYPOXEMIA SNOMED Code(s): 526420715 (4) Pneumonia Current Visit: Yes Status: Acute Code(s): J18.9 - PNEUMONIA, UNSPECIFIED ORGANISM SNOMED Code(s): 437293861 (5) Tobacco dependence Current Visit: Yes Status: Acute Code(s): F17.200 - NICOTINE DEPENDENCE, UNSPECIFIED, UNCOMPLICATED SNOMED Code(s): 59885182 (6) Atherosclerosis of abdominal aorta Current Visit: No Status: Acute Code(s): I70.0 - ATHEROSCLEROSIS OF AORTA SNOMED Code(s): 303907306 (7) Chest wall trauma Current Visit: No Status: Acute Code(s): S29.9XXA - UNSPECIFIED INJURY OF THORAX, INITIAL ENCOUNTER SNOMED Code(s): 17340768 (8) Diverticulitis large intestine w/o perforation or abscess w/o bleeding Current Visit: No Status: Acute Code(s): K57.32 - DVTRCLI OF LG INT W/O PERFORATION OR ABSCESS W/O BLEEDING SNOMED Code(s): 8478170 Plan: Acute exacerbation of chronic COPD with hypoxic respiratory failure Left lung changes new compared to 2021 Pulmonary consultation appreciated and reviewed Likely right lung mass further studies warranted History of apical lung nodule Chronic ongoing tobacco use and abuse Hypertension hyperlipidemia History of gastroesophageal reflux disease We'll continue IV antibiotic therapy for the acquired pneumonia We'll follow very closely Time with Patient: Greater than 30
[2023-03-09] MEDS: AZITHROMYCIN 500 MG TAB PO SCH (11:41)
[2023-03-09] MEDS: VIT A,C & E-LUTEIN-MINERALS 1 EACH TAB PO SCH (11:41)
[2023-03-09 12:22] LABS: Glucose,Whole Blood 143 mg/dL (70-110)
[2023-03-09 17:24] LABS: Glucose,Whole Blood 136 mg/dL (70-110)
[2023-03-09 20:06] LABS: Glucose,Whole Blood 140 mg/dL (70-110)
[2023-03-09] MEDS: ATORVASTATIN 20 MG TAB PO SCH (20:51)
[2023-03-10] MEDS: IPRATROPIUM-ALBUTEROL 3 ML NEB INHALATION PRN ×3 (01:16→23:29)
[2023-03-10] MEDS: methylPREDNISolone SOD SUCCI 125 MG/2 ML VIAL IV SCH ×4 (05:16→23:29)
[2023-03-10 07:30] LABS: Glucose,Whole Blood 127 mg/dL (70-110)
[2023-03-10] MEDS: INSULIN ASPART (NovoLOG) 100 UNIT/ML VIAL SQ SCH ×4 (08:03→20:35)
[2023-03-10] MEDS: BUDESONIDE 1 MG/2 ML NEBU INHALATION SCH ×2 (08:22→19:40)
[2023-03-10] MEDS: FORMOTEROL FUMARATE 20 MCG/2 ML NEBU INHALATION SCH ×2 (08:22→19:40)
[2023-03-10] MEDS: IPRATROPIUM-ALBUTEROL 3 ML NEB INHALATION SCH ×4 (08:22→19:40)
[2023-03-10] MEDS: amLODIPine 10 MG TAB PO SCH (08:57)
[2023-03-10] MEDS: BISOPROLOL-HCTZ 5-6.25 MG 1 EACH TAB PO SCH (08:58)
[2023-03-10] MEDS: VIT A,C & E-LUTEIN-MINERALS 1 EACH TAB PO SCH (08:58)
[2023-03-10] MEDS: lisinopriL 20 MG TAB PO SCH (08:58)
[2023-03-10] MEDS: PANTOPRAZOLE 40 MG TABLET PO SCH ×2 (08:58→20:42)
[2023-03-10] MEDS: AZITHROMYCIN 500 MG TAB PO SCH (08:58)
[2023-03-10] MEDS: SODIUM CHLORIDE 0.9% 1,000 ML IV SCH ×2 (09:03→23:29)
--- NOTE | 2023-03-10 09:42 | XR ---
EXAMINATION TYPE: XR chest 1V portable DATE OF EXAM: 03/10/2023 COMPARISON: 03/07/2023 INDICATION: COPD, lung mass TECHNIQUE: Single frontal view of the chest is obtained. FINDINGS: The heart size is normal. The pulmonary vasculature is normal. There is increased density in the upper outer left breast. This may have some improvement. Underlying solid lesion in the periphery however remains within the differential. Finding was not present on CT chest July 11. Small left pleural effusion is present slightly improved over the interval. S ome atelectatic platelike changes are within the right hilar region. IMPRESSION: 1. Some improvement of left upper outer lung density and small left pleural effusion. Continued follo w-up is recommended.
[2023-03-10 12:13] LABS: Glucose,Whole Blood 170 mg/dL (70-110)
[2023-03-10] MEDS: ALPRAZolam 0.25 MG TAB PO PRN ×2 (13:12→20:42)
--- NOTE | 2023-03-10 13:35 | P.PN ---
Subjective Progress Note Date: 03/10/23 this 73 y/o male well known to myself and partner has known COPd and ongoing smoking. He reports increased SOB starting that brought him to the ER. he was found to have a left lung Pneumonia, left pleural effusion, right upper lung airway occlusion and mucous plugging. He has remained in the hospital since then for treatmetn today, 03/10/2023, he has some dyspnea, no chest pain or pressure. No nausea or vomiting.SIo2 90% 4l/m via nasal cannula. borderline tachy, sugars stable Objective - Vital Signs Vital signs: Vital Signs Temp 97.7 F 03/10/23 11:20 Pulse 102 H 03/10/23 11:40 Resp 20 03/10/23 11:20 BP 135/74 03/10/23 11:20 Pulse Ox 90 L 03/10/23 11:20 FiO2 Intake & Output 03/09/23 03/10/23 03/10/23 18:59 06:59 18:59 Output Total 200 Balance -200 Output: Urine 200 Other: Voiding Method Urinal Urinal # Voids 3 # Bowel Movements 1 - Constitutional General appearance: Present: average body habitus, mild distress - Neck Neck: Present: normal ROM. Absent: lymphadenopathy Thyroid: bilateral: normal size - Respiratory Respiratory: bilateral: diminished, rhonchi, prolonged expiration - Cardiovascular Rhythm: regular Heart sounds: normal: S1, S2 - Gastrointestinal General gastrointestinal: Present: normal bowel sounds. Absent: hepatomegaly, splenomegaly - Neurologic Neurologic: Present: CNII-XII intact. Absent: focal deficits - Psychiatric Psychiatric: Present: A&O x's 3 - Labs CBC & Chem 7: 03/08/23 06:16 03/08/23 06:16 Labs: Abnormal Lab Results - Last 24 Hours (Table) 03/09/23 03/09/23 03/10/23 Range/Units 17:23 20:04 07:15 POC Glucose (mg/dL) 136 H 140 H 127 H (70-110) mg/dL 03/10/23 Range/Units 12:09 POC Glucose (mg/dL) 170 H (70-110) mg/dL Microbiology - Last 24 Hours (Table) 03/07/23 14:26 Blood Culture - Preliminary Blood - Imaging and Cardiology Chest x-ray: report reviewed Assessment and Plan (1) Acute and chronic respiratory failure ([id number]) Current Visit: Yes Status: Acute Code(s): J96.20 - ACUTE AND CHR RESP FAILURE, UNSP W HYPOXIA OR HYPERCAPNIA SNOMED Code(s): 00818987 (2) Essential (primary) hypertension Current Visit: Yes Status: Acute Code(s): I10 - ESSENTIAL (PRIMARY) HYPERTENSION SNOMED Code(s): 38290476 (3) Mixed hyperlipidemia Current Visit: Yes Status: Acute Code(s): E78.2 - MIXED HYPERLIPIDEMIA SNOMED Code(s): 150335385 (4) Acute exacerbation of chronic obstructive pulmonary disease Current Visit: Yes Status: Acute Code(s): J44.1 - CHRONIC OBSTRUCTIVE PULMONARY DISEASE W (ACUTE) EXACERBATION SNOMED Code(s): 174193667 (5) Hypoxia Current Visit: Yes Status: Acute Code(s): R09.02 - HYPOXEMIA SNOMED Code(s): 320563862 (6) Lung mass Current Visit: Yes Status: Acute Code(s): R91.8 - OTHER NONSPECIFIC ABNORMAL FINDING OF LUNG FIELD SNOMED Code(s): 559160631 (7) Pleural effusion, left Current Visit: Yes Status: Acute Code(s): J90 - PLEURAL EFFUSION, NOT ELSEWHERE CLASSIFIED SNOMED Code(s): 41796340 (8) Tobacco dependence Current Visit: Yes Status: Acute Code(s): F17.200 - NICOTINE DEPENDENCE, UNSPECIFIED, UNCOMPLICATED SNOMED Code(s): 90952433 Plan: will add alprazalom for dyspnea/anxiety contiue home meds/soulmedrol/azithromycin/ wait on further recommendations from pulmonology and possible broch reevaluate i nthe next 24 hours
--- NOTE | 2023-03-10 17:18 | P.PN ---
Subjective Progress Note Date: 03/10/23 This is 73-year-old male patient with a known history of hypertension, hyperlipidemia, chronic and ongoing tobacco dependence of greater than 50 years, chronic obstructive pulmonary disease with an FEV1 value. 7% of predicted. He is not oxygen dependent. He follows with Dr. Nguyen in our office. He did have a computed tomography scan in June 2022 that revealed a new right apical nodule measuring 10 x 7 mm that was being followed in the outpatient setting. He presented here to the emergency room yesterday with increasing shortness of breath, cough and congestion. No fever or chills. No nausea or vomiting. No chest pain. His saturations were as low as 84% on room air. He's currently on 4 L nasal cannula. Chest x-ray shows multifocal pneumonia in the left lung. Underlying neoplasm not excluded. CT angiogram ruled out pulmonary embolism. There is a loculated left pleural effusion with associated atelectasis. Consolidation changes and left anterior lung are new compared to June 2022. Right upper lung bronchus with the large airway occlusion with upstream plugging. Findings concerning for obstructing mass. Findings are new compared to June 2022. Moderate to severe emphysematous changes. White count 11.4. Hemoglobin 15.6. Platelets 228. Sodium 142. Potassium 4.6. Bicarb 27. BUN 16. Creatinine 0.9. Glucose 132. Influenza screen negative. RSV screen negative. COVID-19 screen negative. The patient is seen today in consultation on the regular medical floor. He is currently sitting up in bed. Awake and alert in no acute distress. He is to submit with exertion. Dyspneic with minimal conversation. He is maintaining O2 saturation in the 90s on 4 L/m per nasal cannula. Still somewhat bronchospastic and wheezing. The patient is seen today 03/09/2023 in follow-up on the regular medical floor. He is currently sitting up in bed. Given a breathing treatment. Still with dyspnea on exertion. Dyspnea on conversation. A bit better today compared to yesterday. Not quite back to his baseline. He is maintaining O2 saturations in the 90s on 4 L/m per nasal cannula. Normal saline at 75 ML's per hour. Blood glucose 133. He is continued on DuoNeb inhalations, Pulmicort and Perforomist inhalations, Solu-Medrol. On today's evaluation of a 03/10 2023, the patient still having some difficulties in breathing. I reviewed the CAT scan of the chest and there is a loculated left-sided pleural effusion along with left basilar consolidation. Presentation could be related to an underlying parapneumonic effusion which is somewhat located at this point in time. The patient remains on bronchodilators. The patient remains on IV Solu-Medrol. Antibiotic coverage with IV Zosyn. Noted the patient's baseline pro-calcitonin level was at 0.06. The white cell count is not elevated and the patient's echoes 11.3 with a hemoglobin of 15.6. The patient is currently on 4 L of O2 nasal cannula with a pulse ox of 90%. The patient continues to have shortness of breath. The patient advanced COPD with diffuse emphysematous changes bilaterally. I reviewed the CTA of the chest and there is no evidence of any pulmonary embolism. Nevertheless, as mentioned, there is a lot of left-sided pleural effusion along with left basilar atelectas is, severe underlying baseline emphysema in addition to areas of patchy consolidation mainly involving the left lung. Objective - Vital Signs Vital signs: Vital Signs Temp 97.7 F 03/10/23 11:20 Pulse 102 H 03/10/23 11:40 Resp 20 03/10/23 11:20 BP 135/74 03/10/23 11:20 Pulse Ox 90 L 03/10/23 11:20 FiO2 Intake & Output 03/09/23 03/10/23 03/10/23 18:59 06:59 18:59 Output Total 200 Balance -200 Output: Urine 200 Other: Voiding Method Urinal Urinal # Voids 3 # Bowel Movements 1 - Exam GENERAL EXAM: Alert, 73-year-old male, on 4 L nasal cannula, comfortable in no apparent distress. HEAD: Normocephalic. EYES: Normal reaction of pupils, equal size. NOSE: Clear with pink turbinates. THROAT: No erythema or exudates. NECK: No masses, no JVD. CHEST: No chest wall deformity. LUNGS: Equal air entry with bilateral end expiratory wheeze, scattered rhonchi, diminished. CVS: S1 and S2 normal with no audible murmur, regular rhythm. ABDOMEN: No hepatosplenomegaly, normal bowel sounds, no guarding or rigidity. SPINE: No scoliosis or deformity SKIN: No rashes CENTRAL NERVOUS SYSTEM: No focal deficits, tone is normal in all 4 extremities. EXTREMITIES: There is no peripheral edema. No clubbing, no cyanosis. Peripheral pulses are intact. - Labs CBC & Chem 7: 03/08/23 06:16 03/08/23 06:16 Labs: Abnormal Lab Results - Last 24 Hours (Table) 03/09/23 03/09/23 03/10/23 Range/Units 17:23 20:04 07:15 POC Glucose (mg/dL) 136 H 140 H 127 H (70-110) mg/dL 03/10/23 Range/Units 12:09 POC Glucose (mg/dL) 170 H (70-110) mg/dL Microbiology - Last 24 Hours (Table) 03/07/23 14:26 Blood Culture - Preliminary Blood Assessment and Plan Plan: Acute hypoxemic respiratory failure secondary to an acute exacerbation of chronic obstructive pulmonary disease complicated by postobstructive pneumonia. CT angiogram ruled out pulmonary embolism. There is a loculated left pleural effusion with associated atelectasis. Consolidation changes and left anterior lung are new compared to June 2022. Right upper lung bronchus with the large airway occlusion with upstream plugging. Findings concerning for obstructing mass. Findings are new compared to June 2022. Moderate to severe emphysematous changes. Loculated pleural effusion on the left and this is likely a parapneumonic left- sided pleural effusion History of right apical nodule measuring 10.7 mm in June 2022 Chronic obstructive pulmonary disease his FEV1 value 57% of predicted Chronic and ongoing tobacco dependence greater than 50 years Hypertension Hyperlipidemia History of gastroesophageal reflux disease Plan: Obtain ultrasound the chest to evaluate and marked left-sided pleural effusion We'll do a thoracentesis visited sizable left-sided pleural effusion Add IV Zosyn Continue azithromycin Continue bronchodilators, steroids Repeat chest x-ray from today is showing essentially stable consolidation of the left lung base along with a pleural effusion Titrate the FiO2 as tolerated We will continue to follow
[2023-03-10 17:26] LABS: Glucose,Whole Blood 100 mg/dL (70-110)
[2023-03-10] MEDS: PIPERACILLIN-TAZOBACTAM 3.375 GM in SODIUM CHLORIDE 0.9% 100 ML IVPB SCH ×2 (18:16→23:28)
--- NOTE | 2023-03-10 19:03 | US ---
EXAMINATION TYPE: US chest DATE OF EXAM: 03/10/2023 COMPARISON: XRAY: 03/10/23 CLINICAL INDICATION: Male, 73 years old with history of Markings for thoracentesis pulmonary staff, l eft; left pleural effusion TECHNIQUE: Targeted ultrasound of the posterior lower bilateral hemithoraces EXAM MEASUREMENTS: Right Pleural Effusion pocket size: 0 cm Left Pleural Effusion pocket size: 6.83 cm Left skin surface to fluid distance: 3.0 cm Left side marked for possible thoracentesis outside the dept. Pulmonologists are able to review the images in the patient?s EMR. IMPRESSIONS: Left pleural effusion
[2023-03-10 20:31] LABS: Glucose,Whole Blood 133 mg/dL (70-110)
[2023-03-10] MEDS: ATORVASTATIN 20 MG TAB PO SCH (20:42)
[2023-03-11] MEDS: IPRATROPIUM-ALBUTEROL 3 ML NEB INHALATION PRN ×2 (04:40→23:23)
[2023-03-11] MEDS: methylPREDNISolone SOD SUCCI 125 MG/2 ML VIAL IV SCH ×4 (05:26→23:25)
[2023-03-11] MEDS: IPRATROPIUM-ALBUTEROL 3 ML NEB INHALATION SCH ×4 (07:34→20:24)
[2023-03-11] MEDS: FORMOTEROL FUMARATE 20 MCG/2 ML NEBU INHALATION SCH ×2 (07:34→20:24)
[2023-03-11] MEDS: BUDESONIDE 1 MG/2 ML NEBU INHALATION SCH ×2 (07:34→20:24)
[2023-03-11 07:36] LABS: Glucose,Whole Blood 128 mg/dL (70-110)
--- NOTE | 2023-03-11 07:55 | P.PN ---
Subjective Progress Note Date: 03/11/23 This is 73-year-old male patient with a known history of hypertension, hyperlipidemia, chronic and ongoing tobacco dependence of greater than 50 years, chronic obstructive pulmonary disease with an FEV1 value. 7% of predicted. He is not oxygen dependent. He follows with Dr. Nguyen in our office. He did have a computed tomography scan in June 2022 that revealed a new right apical nodule measuring 10 x 7 mm that was being followed in the outpatient setting. He presented here to the emergency room yesterday with increasing shortness of breath, cough and congestion. No fever or chills. No nausea or vomiting. No chest pain. His saturations were as low as 84% on room air. He's currently on 4 L nasal cannula. Chest x-ray shows multifocal pneumonia in the left lung. Underlying neoplasm not excluded. CT angiogram ruled out pulmonary embolism. There is a loculated left pleural effusion with associated atelectasis. Consolidation changes and left anterior lung are new compared to June 2022. Right upper lung bronchus with the large airway occlusion with upstream plugging. Findings concerning for obstructing mass. Findings are new compared to June 2022. Moderate to severe emphysematous changes. White count 11.4. Hemoglobin 15.6. Platelets 228. Sodium 142. Potassium 4.6. Bicarb 27. BUN 16. Creatinine 0.9. Glucose 132. Influenza screen negative. RSV screen negative. COVID-19 screen negative. The patient is seen today in consultation on the regular medical floor. He is currently sitting up in bed. Awake and alert in no acute distress. He is to submit with exertion. Dyspneic with minimal conversation. He is maintaining O2 saturation in the 90s on 4 L/m per nasal cannula. Still somewhat bronchospastic and wheezing. The patient is seen today 03/09/2023 in follow-up on the regular medical floor. He is currently sitting up in bed. Given a breathing treatment. Still with dyspnea on exertion. Dyspnea on conversation. A bit better today compared to yesterday. Not quite back to his baseline. He is maintaining O2 saturations in the 90s on 4 L/m per nasal cannula. Normal saline at 75 ML's per hour. Blood glucose 133. He is continued on DuoNeb inhalations, Pulmicort and Perforomist inhalations, Solu-Medrol. On today's evaluation of a 03/10 2023, the patient still having some difficulties in breathing. I reviewed the CAT scan of the chest and there is a loculated left-sided pleural effusion along with left basilar consolidation. Presentation could be related to an underlying parapneumonic effusion which is somewhat located at this point in time. The patient remains on bronchodilators. The patient remains on IV Solu-Medrol. Antibiotic coverage with IV Zosyn. Noted the patient's baseline pro-calcitonin level was at 0.06. The white cell count is not elevated and the patient's echoes 11.3 with a hemoglobin of 15.6. The patient is currently on 4 L of O2 nasal cannula with a pulse ox of 90%. The patient continues to have shortness of breath. The patient advanced COPD with diffuse emphysematous changes bilaterally. I reviewed the CTA of the chest and there is no evidence of any pulmonary embolism. Nevertheless, as mentioned, there is a lot of left-sided pleural effusion along with left basilar atelectas is, severe underlying baseline emphysema in addition to areas of patchy consolidation mainly involving the left lung. 03/11/2023, I'm seeing the patient for a follow-up. As mentioned yesterday, the patient had a pneumonia with a parapneumonic effusion on the left, and an ultrasound of the chest was done yesterday and it showed a 6 cm^ in the left lung. Based on that, I performed a bedside thoracentesis on this patient and a total of 900 mL of pleural fluid was aspirated from the left lung. The chest x- rays to follow. Meanwhile, the patient remains on IV Zosyn and Zithromax. He remains on bronchodilators. He remains on steroids. His blood work from today is still pending. No other significant events overnight. The patient is on 5 L of oxygen by nasal cannula with a pulse ox of 91%. As such, the thoracentesis was completed successfully and the patient is awaiting a follow-up chest x-ray. Objective - Vital Signs Vital signs: Vital Signs Temp 97.5 F L 03/11/23 07:07 Pulse 86 03/11/23 07:45 Resp 20 03/11/23 07:07 BP 124/76 03/11/23 07:07 Pulse Ox 91 L 03/11/23 07:36 FiO2 Intake & Output 03/10/23 03/11/23 03/11/23 18:59 06:59 18:59 Intake Total 150 1000 Output Total 800 Balance 150 200 Intake: Intake, IV Titration 150 600 Amount Piperacillin-Tazobactam 3 100 .375 gm In Sodium Chloride 0.9% 100 ml @ 25 mls/hr IVPB Q8HR [facility] Rx# :[id number] Sodium Chloride 0.9% 1, 150 500 000 ml @ 75 mls/hr IV . [id number] [facility] Rx#:[id number] Oral 400 Output: Urine 800 Other: Voiding Method Urinal Urinal - Exam GENERAL EXAM: Alert, 73-year-old male, on 5 L nasal cannula, comfortable in no apparent distress. HEAD: Normocephalic. EYES: Normal reaction of pupils, equal size. NOSE: Clear with pink turbinates. THROAT: No erythema or exudates. NECK: No masses, no JVD. CHEST: No chest wall deformity. LUNGS: Equal air entry with bilateral end expiratory wheeze, scattered rhonchi, diminished. CVS: S1 and S2 normal with no audible murmur, regular rhythm. ABDOMEN: No hepatosplenomegaly, normal bowel sounds, no guarding or rigidity. SPINE: No scoliosis or deformity SKIN: No rashes CENTRAL NERVOUS SYSTEM: No focal deficits, tone is normal in all 4 extremities. EXTREMITIES: There is no peripheral edema. No clubbing, no cyanosis. Peripher al pulses are intact. - Labs CBC & Chem 7: 03/08/23 06:16 03/08/23 06:16 Labs: Abnormal Lab Results - Last 24 Hours (Table) 03/10/23 03/10/23 03/11/23 Range/Units 12:09 20:28 07:12 POC Glucose (mg/dL) 170 H 133 H 128 H (70-110) mg/dL Microbiology - Last 24 Hours (Table) 03/07/23 14:26 Blood Culture - Preliminary Blood Assessment and Plan Plan: Acute hypoxemic respiratory failure secondary to an acute exacerbation of chronic obstructive pulmonary disease complicated by postobstructive pneumonia. CT angiogram ruled out pulmonary embolism. There is a loculated left pleural effusion with associated atelectasis. Consolidation changes and left anterior lung are new compared to June 2022. Right upper lung bronchus with the large airway occlusion with upstream plugging. Findings concerning for obstructing mass. Findings are new compared to June 2022. Moderate to severe emphysematous changes. Loculated pleural effusion on the left and this is likely a parapneumonic left- sided pleural effusion, a bedside thoracentesis was done and a total of 900 mL of turbid pleural fluid was aspirated without any major complications. History of right apical nodule measuring 10.7 mm in June 2022 Chronic obstructive pulmonary disease his FEV1 value 57% of predicted Chronic and ongoing tobacco dependence greater than 50 years Hypertension Hyperlipidemia History of gastroesophageal reflux disease Plan: Obtain a follow-up chest x-ray postthoracentesis Continue Zosyn Continue azithromycin Continue bronchodilators, steroids Repeat chest x-ray in a.m. Titrate the FiO2 as tolerated We will continue to follow
--- NOTE | 2023-03-11 07:56 | P.PCN ---
Date of Procedure: 03/11/23 Preoperative Diagnosis: Left-sided pleural effusion Postoperative Diagnosis: Left-sided pleural effusion Procedure(s) Performed: Left-sided thoracentesis Anesthesia: local Surgeon: Rommel Nguyen Estimated Blood Loss (ml): 0 Pathology: other Condition: stable Disposition: floor Operative Findings: A time out was performed and the chest x-ray was reviewed, the appropriate side was confirmed and marked. My hands were washed immediately prior to the procedure. I wore a surgical cap, mask with protective eyewear, sterile gown and sterile gloves throughout the procedure. The patient was prepped and draped in a sterile manner using chlorhexidine scrub after the appropriate level was percussed and confirmed by ultrasound. 1% lidocaine was used to anesthesize the skin, subcutaneous tissue, superior aspect of the rib periosteum and parietal pleura. A finder needle was then introduced over the superior aspect of the rib to locate the pleural fluid; 2colored fluid was aspirated at a depth of approximately 2 cm. A 10-blade scalpel was used to mj the skin at the ins ertion site. The Nlft-b-Ujycutog needle was then introduced through the skin incision into the pleural space using negative aspiration pressure and the red colometric indicator to confirm appropriate positioning of the needle. The thoracentesis catheter was then threaded without difficulty. 900 ml of turbid colored fluid was removed without difficulty. The catheter was then removed. No immediate complications were noted during the procedure. A post-procedure chest x-ray is pending at the time of this note. The fluid will be sent for studies. Estimated blood loss is 0cc
[2023-03-11] MEDS: INSULIN ASPART (NovoLOG) 100 UNIT/ML VIAL SQ SCH ×4 (08:00→20:52)
--- NOTE | 2023-03-11 08:20 | XR ---
EXAMINATION TYPE: XR chest 1V portable DATE OF EXAM: 03/11/2023 HISTORY: Status post left-sided thoracentesis. COMPARISON: 03/10/2023 TECHNIQUE: Single view of the chest is submitted. FINDINGS: Demonstrated are scattered senescent parenchymal change. No evidence for left-sided pneumothorax in a patient who is status post thoracentesis. Diminution in left-sided pleural effusion. Continued left upper lobe patchy and nodular infiltrate as well as right basilar atelectasis and possibly additional infiltrate. The heart is stable. Hilar and mediastinal structures are within normal limits. Degenerative changes are seen of the dorsal spine. IMPRESSION: 1. No evidence for pneumothorax.
[2023-03-11] MEDS: PIPERACILLIN-TAZOBACTAM 3.375 GM in SODIUM CHLORIDE 0.9% 100 ML IVPB SCH ×3 (08:34→23:25)
[2023-03-11] MEDS: lisinopriL 20 MG TAB PO SCH (08:35)
[2023-03-11] MEDS: PANTOPRAZOLE 40 MG TABLET PO SCH ×2 (08:35→19:58)
[2023-03-11] MEDS: amLODIPine 10 MG TAB PO SCH (08:36)
[2023-03-11] MEDS: AZITHROMYCIN 500 MG TAB PO SCH (08:36)
[2023-03-11] MEDS: VIT A,C & E-LUTEIN-MINERALS 1 EACH TAB PO SCH (08:36)
[2023-03-11] MEDS: BISOPROLOL-HCTZ 5-6.25 MG 1 EACH TAB PO SCH (08:37)
[2023-03-11] MEDS: ALPRAZolam 0.25 MG TAB PO PRN ×2 (08:42→16:54)
[2023-03-11 09:01] LABS: Basophils # (A) 0.02 X 10*3/uL (0.00-0.10); Basophils % (A) 0.2 %; Eosinophils # (A) 0 X 10*3/uL (0.04-0.35); Eosinophils % (A) 0 %; HCT 49.9 % (39.6-50.0); HGB 15.8 d/dL (13.0-17.0); Lymphocytes % (A) 2.7 %; MCH 29.9 pg (27.0-32.0); MCHC 31.7 d/dL (32.0-37.0); MCV 94.5 FL (80.0-97.0); Mean Platelet Volume 10.5 FL (9.5-12.2); Monocytes # (A) 0.14 X 10*3/uL (0.20-1.00); Monocytes % (A) 1.3 %; NRBC Per 100 WBC 0 X 10*3/uL (0.00-0.01); Neutrophils # (A) 10.57 X 10*3/uL (1.80-7.70); Neutrophils % (A) 94.5 %; Platelet Count 237 X 10*3/uL (140-440); RBC 5.28 X 10*6/uL (4.40-5.60); RDW 15.5 % (11.5-14.5); WBC 11.17 X 10*3/uL (4.50-10.00)
[2023-03-11 09:09] LABS: BUN/Creat Ratio 28.67 Ratio (12.00-20.00); Blood Urea Nitrogen 17.2 mg/dL (9.0-27.0); Carbon Dioxide 31.6 mmol/L (21.6-31.8); Chloride 103 mmol/L (96-109); Glucose 137 mg/dL (70-110); Potassium 4.9 mmol/L (3.5-5.5); Sodium 144 mmol/L (135-145)
[2023-03-11 12:04] LABS: Glucose,Whole Blood 127 mg/dL (70-110)
--- NOTE | 2023-03-11 14:41 | P.PN ---
Subjective Progress Note Date: 03/11/23 Maintained on nebulized bronchodilators, IV steroids, Zosyn, azithromycin . Pro-calcitonin 0.06, afebrile, normal WBC.Chest CT reported loculated left-sided pleural effusion with associated atelectasis, new anterior left consolidation changes, right upper lung bronchus large airway occlusion with upstream plugging, findings concerning for obstructing mass. Findings new from prior CT. Moderate to severe emphysema changes. Ultrasound of the chest report. Left pleural effusion pocket 6.83 cm/marked for thoracentesis. Pre-thoracentesis, requiring 5 L nasal cannula to maintain O2 sats in the low 90s.Left thoracentesis performed earlier this morning, with 900 MLS of turbid colored drainage. Tolerated procedure well. Chest x-ray postprocedure reporting no evidence of pneumothorax. Postprocedure, decreased oxygen requirements, maintaining O2 sats in the 90s on 3 L nasal cannula. Denies chest pain, palpitations. Objective - Vital Signs Vital signs: Vital Signs Temp 97.5 F L 03/11/23 07:07 Pulse 79 03/11/23 11:16 Resp 20 03/11/23 07:07 BP 124/76 03/11/23 07:07 Pulse Ox 91 L 03/11/23 07:36 FiO2 Intake & Output 03/10/23 03/11/23 03/11/23 18:59 06:59 18:59 Intake Total 150 1000 Output Total 800 Balance 150 200 Intake: Intake, IV Titration 150 600 Amount Piperacillin-Tazobactam 3 100 .375 gm In Sodium Chloride 0.9% 100 ml @ 25 mls/hr IVPB Q8HR [facility] Rx# :[id number] Sodium Chloride 0.9% 1, 150 500 000 ml @ 75 mls/hr IV . [id number] [facility] Rx#:[id number] Oral 400 Output: Urine 800 Other: Voiding Method Urinal Urinal - Exam - Exam PHYSICAL EXAM: VITAL SIGNS: [As above] GENERAL: Sitting up in in chair, alert, no acute distress HEENT: Normocephalic, Conjunctivae normal. eyes normal. NECK: Supple, No JVD. No thyroid enlargement. CARDIOVASCULAR: S1, S2 regular. No murmur RESPIRATION: Equal air entry with diminished bases. Scattered rhonchi, occasional prolonged bilateral end expiratory wheeze with cough ABDOMEN: Soft, nontender . No guarding. no masses palpable. Positive Bowel sounds. PSYCHIATRY: Alert and oriented X3, mood and affect normal. NERVOUS SYSTEM: Cranial N 2-12 grossly normal. No focal deficits. Strength and sensation grossly intact. LEGS: No edema, no swelling, no clubbing, no cyanosis. Skin: Warm and dry, no rash. - Labs CBC & Chem 7: 03/11/23 05:45 03/11/23 05:45 Labs: Abnormal Lab Results - Last 24 Hours (Table) 03/10/23 03/10/23 03/11/23 Range/Units 12:09 20:28 05:45 WBC 11.17 H (4.50-10.00) X 10*3/uL MCHC 31.7 L (32.0-37.0) d/dL RDW 15.5 H (11.5-14.5) % Neutrophils # 10.57 H (1.80-7.70) X 10*3/uL Lymphocytes # 0.30 L (0.90-5.00) X 10*3/uL Monocytes # 0.14 L (0.20-1.00) X 10*3/uL Eosinophils # 0 L (0.04-0.35) X 10*3/uL BUN/Creatinine Ratio (12.00-20.00) Ratio Glucose (70-110) mg/dL POC Glucose (mg/dL) 170 H 133 H (70-110) mg/dL 03/11/23 03/11/23 Range/Units 05:45 07:12 WBC (4.50-10.00) X 10*3/uL MCHC (32.0-37.0) d/dL RDW (11.5-14.5) % Neutrophils # (1.80-7.70) X 10*3/uL Lymphocytes # (0.90-5.00) X 10*3/uL Monocytes # (0.20-1.00) X 10*3/uL Eosinophils # (0.04-0.35) X 10*3/uL BUN/Creatinine Ratio 28.67 H (12.00-20.00) Ratio Glucose 137 H (70-110) mg/dL POC Glucose (mg/dL) 128 H (70-110) mg/dL Microbiology - Last 24 Hours (Table) 03/07/23 14:26 Blood Culture - Preliminary Blood Assessment and Plan Assessment: Acute COPD exacerbation, acute post obstructive pneumonia. Loculated left pleural effusion with atelectasis. Status post left thoracentesis, cultures/cytology pending. Right upper lung bronchus large airway occlusion with upstream plugging, findings concerning for obstructing mass. Findings new from prior CT, in a patient with history of right apical nodule measuring 10.7 mm June 2022. further outpatient follow-up with pulmonary. Acute hypoxic respiratory failure secondary to the above Hypertension Gastroesophageal reflux disease Hyperlipidemia Diverticulosis Ongoing nicotine dependence Plan: Continue on current medication regime ,monitoring and symptomatic treatment. Maintain aggressive toileting with nebulized bronchodilators, stero ids, antibiotics. Thoracentesis cultures/cytology pending. The impression and plan of care has been dictated as directed. : I performed a history and examination of this patient, discussed the same with the dictator. I agree with the dictator's note ,documented as a scribe. Any additional findings or plans will be noted.
[2023-03-11] MEDS: SODIUM CHLORIDE 0.9% 1,000 ML IV SCH (15:51)
[2023-03-11 16:13] LABS: Total Protein 6.2 d/dL (6.2-8.2)
[2023-03-11 17:15] LABS: Glucose,Whole Blood 124 mg/dL (70-110)
--- NOTE | 2023-03-11 17:59 | XR ---
EXAMINATION TYPE: XR chest 2V DATE OF EXAM: 03/11/2023 COMPARISON: 03/11/2023 HISTORY: Shortness of breath TECHNIQUE: Frontal and lateral views of the chest are obtained. FINDINGS: Scattered senescent parenchymal changes noted. Hyperinflation compatible with COPD. Persistent patchy infiltrate left upper lobe. Stable right basilar pleural-parenchymal opacity, atele ctasis and infiltrate. Overall no change. Small left-sided effusion. Heart size is stable. Mediastinal structures are stable and grossly unremarkable. No evidence for hilar prominence. Degenerative changes dorsal spine. IMPRESSION: 1. Persistent patchy infiltrate left upper lobe. Stable right basilar pleural-parenchymal opacity, at electasis and infiltrate. Overall no change. Small left-sided effusion.
[2023-03-11 19:02] LABS: Amylase, Fluid Source Pleural Fluid; Amylase,Body Fluid 14 U/L; Cholesterol,BF Source Pleural Fluid; Cholesterol,Body Fluid 63 mg/dL; Glucose, BF Source Pleural Fluid; Glucose, Body Fluid 116 mg/dL; LDH, Body Fluid Source Pleural Fluid; T. Protein, Body Fluid Source Pleural Fluid; Total Protein, Body Fluid >3600 mg/dL
[2023-03-11] MEDS: ATORVASTATIN 20 MG TAB PO SCH (19:58)
[2023-03-11 20:33] LABS: Glucose,Whole Blood 143 mg/dL (70-110)
[2023-03-11 21:50] LABS: Appearance,BF Slightly Cloudy (Clear)
[2023-03-12] MEDS: SODIUM CHLORIDE 0.9% 1,000 ML IV SCH ×2 (03:47→18:45)
[2023-03-12] MEDS: IPRATROPIUM-ALBUTEROL 3 ML NEB INHALATION PRN (04:21)
[2023-03-12] MEDS: methylPREDNISolone SOD SUCCI 125 MG/2 ML VIAL IV SCH ×3 (05:19→18:44)
[2023-03-12 07:21] LABS: Glucose,Whole Blood 125 mg/dL (70-110)
[2023-03-12] MEDS: INSULIN ASPART (NovoLOG) 100 UNIT/ML VIAL SQ SCH ×4 (07:53→21:30)
[2023-03-12] MEDS: IPRATROPIUM-ALBUTEROL 3 ML NEB INHALATION SCH ×4 (08:34→19:48)
[2023-03-12] MEDS: FORMOTEROL FUMARATE 20 MCG/2 ML NEBU INHALATION SCH ×2 (08:34→19:48)
[2023-03-12] MEDS: BUDESONIDE 1 MG/2 ML NEBU INHALATION SCH ×2 (08:34→19:48)
[2023-03-12] MEDS: VIT A,C & E-LUTEIN-MINERALS 1 EACH TAB PO SCH (09:17)
[2023-03-12] MEDS: PIPERACILLIN-TAZOBACTAM 3.375 GM in SODIUM CHLORIDE 0.9% 100 ML IVPB SCH ×2 (09:17→18:44)
[2023-03-12] MEDS: PANTOPRAZOLE 40 MG TABLET PO SCH ×2 (09:17→19:28)
[2023-03-12] MEDS: amLODIPine 10 MG TAB PO SCH (09:17)
[2023-03-12] MEDS: lisinopriL 20 MG TAB PO SCH (09:17)
[2023-03-12] MEDS: BISOPROLOL-HCTZ 5-6.25 MG 1 EACH TAB PO SCH (09:17)
--- NOTE | 2023-03-12 09:55 | XR ---
EXAMINATION TYPE: XR chest 2V DATE OF EXAM: 03/12/2023 COMPARISON: 03/11/2023 INDICATION: Pneumonia TECHNIQUE: Frontal and lateral views of the chest are obtained. FINDINGS: The heart size is normal. The pulmonary vasculature is prominent. Linear opacities at the right base may be related to atelectasis. There is mild diffuse increased bradly g markings left suprahilar region. Atelectasis and pneumonia could be considered.. Small pleural eff usions may be present. IMPRESSION: 1. Stable appearance to chest findings. 2. Atelectatic type changes at the right base. 3 trached in the left perihilar region. Correlate for atelectasis or pneumonia. 3. Small pleural effusions
[2023-03-12 12:06] LABS: Glucose,Whole Blood 178 mg/dL (70-110)
[2023-03-12 17:21] LABS: Glucose,Whole Blood 106 mg/dL (70-110)
--- NOTE | 2023-03-12 17:49 | P.PN ---
Subjective Progress Note Date: 03/12/23 This is 73-year-old male patient with a known history of hypertension, hyperlipidemia, chronic and ongoing tobacco dependence of greater than 50 years, chronic obstructive pulmonary disease with an FEV1 value. 7% of predicted. He is not oxygen dependent. He follows with Dr. Nguyen in our office. He did have a computed tomography scan in June 2022 that revealed a new right apical nodule measuring 10 x 7 mm that was being followed in the outpatient setting. He presented here to the emergency room yesterday with increasing shortness of breath, cough and congestion. No fever or chills. No nausea or vomiting. No chest pain. His saturations were as low as 84% on room air. He's currently on 4 L nasal cannula. Chest x-ray shows multifocal pneumonia in the left lung. Underlying neoplasm not excluded. CT angiogram ruled out pulmonary embolism. There is a loculated left pleural effusion with associated atelectasis. Consolidation changes and left anterior lung are new compared to June 2022. Right upper lung bronchus with the large airway occlusion with upstream plugging. Findings concerning for obstructing mass. Findings are new compared to June 2022. Moderate to severe emphysematous changes. White count 11.4. Hemoglobin 15.6. Platelets 228. Sodium 142. Potassium 4.6. Bicarb 27. BUN 16. Creatinine 0.9. Glucose 132. Influenza screen negative. RSV screen negative. COVID-19 screen negative. The patient is seen today in consultation on the regular medical floor. He is currently sitting up in bed. Awake and alert in no acute distress. He is to submit with exertion. Dyspneic with minimal conversation. He is maintaining O2 saturation in the 90s on 4 L/m per nasal cannula. Still somewhat bronchospastic and wheezing. The patient is seen today 03/09/2023 in follow-up on the regular medical floor. He is currently sitting up in bed. Given a breathing treatment. Still with dyspnea on exertion. Dyspnea on conversation. A bit better today compared to yesterday. Not quite back to his baseline. He is maintaining O2 saturations in the 90s on 4 L/m per nasal cannula. Normal saline at 75 ML's per hour. Blood glucose 133. He is continued on DuoNeb inhalations, Pulmicort and Perforomist inhalations, Solu-Medrol. On today's evaluation of a 03/10 2023, the patient still having some difficulties in breathing. I reviewed the CAT scan of the chest and there is a loculated left-sided pleural effusion along with left basilar consolidation. Presentation could be related to an underlying parapneumonic effusion which is somewhat located at this point in time. The patient remains on bronchodilators. The patient remains on IV Solu-Medrol. Antibiotic coverage with IV Zosyn. Noted the patient's baseline pro-calcitonin level was at 0.06. The white cell count is not elevated and the patient's echoes 11.3 with a hemoglobin of 15.6. The patient is currently on 4 L of O2 nasal cannula with a pulse ox of 90%. The patient continues to have shortness of breath. The patient advanced COPD with diffuse emphysematous changes bilaterally. I reviewed the CTA of the chest and there is no evidence of any pulmonary embolism. Nevertheless, as mentioned, there is a lot of left-sided pleural effusion along with left basilar atelectas is, severe underlying baseline emphysema in addition to areas of patchy consolidation mainly involving the left lung. 03/11/2023, I'm seeing the patient for a follow-up. As mentioned yesterday, the patient had a pneumonia with a parapneumonic effusion on the left, and an ultrasound of the chest was done yesterday and it showed a 6 cm^ in the left lung. Based on that, I performed a bedside thoracentesis on this patient and a total of 900 mL of pleural fluid was aspirated from the left lung. The chest x- rays to follow. Meanwhile, the patient remains on IV Zosyn and Zithromax. He remains on bronchodilators. He remains on steroids. His blood work from today is still pending. No other significant events overnight. The patient is on 5 L of oxygen by nasal cannula with a pulse ox of 91%. As such, the thoracentesis was completed successfully and the patient is awaiting a follow-up chest x-ray. 03/12/2023, the patient is feeling slightly improved compared to yesterday. I performed a thoracentesis on the left lung and a total of 900 mL's of pleural fluid was aspirated. In follow-up, the patient is still on oxygen at 4 L of nasal cannula. The patient is afebrile. No new labs are available from today. The pleural fluid was an exudate and the cultures from the pleural fluid is still pending for now. Fluid cytology is also pending. The repeat chest x-ray still showing persistent left lung consolidation. His heart to say if there is any other residual pockets of pleural fluid. I think the patient deserves another follow-up CAT scan of the chest. Meanwhile, the patient is still on IV antibiotics and the patient is currently on IV Zosyn. The patient is on bronchodilators. The patient on IV Solu-Medrol 60 mg every 6 hours. IV fluids are running at 75 mL an hour. Objective - Vital Signs Vital signs: Vital Signs Temp 97.6 F 03/12/23 07:19 Pulse 100 03/12/23 10:57 Resp 19 03/12/23 08:00 BP 124/83 03/12/23 07:19 Pulse Ox 94 L 03/12/23 08:35 FiO2 Intake & Output 03/11/23 03/12/23 03/12/23 18:59 06:59 18:59 Intake Total 220 1100 Output Total 900 600 Balance -680 500 Intake: Intake, IV Titration 220 600 Amount Piperacillin-Tazobactam 3 100 100 .375 gm In Sodium Chloride 0.9% 100 ml @ 25 mls/hr IVPB Q8HR [facility] Rx# :[id number] Sodium Chloride 0.9% 1, 120 500 000 ml @ 75 mls/hr IV . [id number] [facility] Rx#:[id number] Oral 500 Output: Drainage 900 Thoracentesis 900 Urine 600 Other: Voiding Method Urinal Urinal Urinal - Exam GENERAL EXAM: Alert, 73-year-old male, on 4 L nasal cannula, comfortable in no a pparent distress. HEAD: Normocephalic. EYES: Normal reaction of pupils, equal size. NOSE: Clear with pink turbinates. THROAT: No erythema or exudates. NECK: No masses, no JVD. CHEST: No chest wall deformity. LUNGS: Equal air entry with bilateral end expiratory wheeze, scattered rhonchi, diminished. CVS: S1 and S2 normal with no audible murmur, regular rhythm. ABDOMEN: No hepatosplenomegaly, normal bowel sounds, no guarding or rigidity. SPINE: No scoliosis or deformity SKIN: No rashes CENTRAL NERVOUS SYSTEM: No focal deficits, tone is normal in all 4 extremities. EXTREMITIES: There is no peripheral edema. No clubbing, no cyanosis. Peripheral pulses are intact. - Labs CBC & Chem 7: 03/11/23 05:45 03/11/23 05:45 Labs: Abnormal Lab Results - Last 24 Hours (Table) 03/11/23 03/11/23 03/11/23 Range/Units 05:46 08:42 11:53 POC Glucose (mg/dL) 127 H (70-110) mg/dL Lactate Dehydrogenase 325 H (120-246) U/L Fluid Appearance Slightly Cloudy A (Clear) 03/11/23 03/11/23 03/12/23 Range/Units 17:12 20:32 07:20 POC Glucose (mg/dL) 124 H 143 H 125 H (70-110) mg/dL Lactate Dehydrogenase (120-246) U/L Fluid Appearance (Clear) Microbiology - Last 24 Hours (Table) 03/11/23 08:42 Gram Stain - Preliminary Pleural Fluid Assessment and Plan Plan: Acute hypoxemic respiratory failure secondary to an acute exacerbation of chronic obstructive pulmonary disease complicated by postobstructive pneumonia. CT angiogram ruled out pulmonary embolism. There is a loculated left pleural effusion with associated atelectasis. Consolidation changes and left anterior lung are new compared to June 2022. Right upper lung bronchus with the large airway occlusion with upstream plugging. Findings concerning for obstructing mass. Findings are new compared to June 2022. Moderate to severe emphysematous changes. Loculated pleural effusion on the left and this is likely a parapneumonic left- sided pleural effusion, a bedside thoracentesis was done and a total of 900 mL of turbid pleural fluid was aspirated without any major complications. History of right apical nodule measuring 10.7 mm in June 2022 Chronic obstructive pulmonary disease his FEV1 value 57% of predicted Chronic and ongoing tobacco dependence greater than 50 years Hypertension Hyperlipidemia History of gastroesophageal reflux disease Plan: Left-sided thoracentesis was done and the patient has some residual opacification of the left lung Obtain a follow-up noncontrast CAT scan to assess for any pockets of residual pleural fluid Oxygenation is stable and patient is currently on 4 L of O2 nasal cannula Continue Zosyn Continue azithromycin Continue bronchodilators, steroids Titrate the FiO2 as tolerated We will continue to follow
--- NOTE | 2023-03-12 18:43 | P.PN ---
Subjective Progress Note Date: 03/12/23 Maintained on nebulized bronchodilators, IV steroids, Zosyn, azithromycin . Pro-calcitonin 0.06, afebrile, normal WBC.Chest CT reported loculated left-sided pleural effusion with associated atelectasis, new anterior left consolidation changes, right upper lung bronchus large airway occlusion with upstream plugging, findings concerning for obstructing mass. Findings new from prior CT. Moderate to severe emphysema changes. Ultrasound of the chest report. Left pleural effusion pocket 6.83 cm/marked for thoracentesis. Pre-thoracentesis, requiring 5 L nasal cannula to maintain O2 sats in the low 90s.Left thoracentesis performed earlier this morning, with 900 MLS of turbid colored drainage. Tolerated procedure well. Chest x-ray postprocedure reporting no evidence of pneumothorax. Postprocedure, decreased oxygen requirements, maintaining O2 sats in the 90s on 3 L nasal cannula. Denies chest pain, palpitations. 03/12/2023 status post left thoracentesis yesterday , cultures/cytology pending. repeat chest x-ray this morning reporting persistent left lung consolidation. continues on nebulized bronchodilators, IV steroids, Zosyn, maintaining O2 sats in the 90s on 4 L nasal cannula. Objective - Vital Signs Vital signs: Vital Signs Temp 97.6 F 03/12/23 07:19 Pulse 100 03/12/23 10:57 Resp 19 03/12/23 08:00 BP 124/83 03/12/23 07:19 Pulse Ox 94 L 03/12/23 08:35 FiO2 Intake & Output 03/11/23 03/12/23 03/12/23 18:59 06:59 18:59 Intake Total 220 1100 Output Total 900 600 Balance -680 500 Intake: Intake, IV Titration 220 600 Amount Piperacillin-Tazobactam 3 100 100 .375 gm In Sodium Chloride 0.9% 100 ml @ 25 mls/hr IVPB Q8HR [facility] Rx# :[id number] Sodium Chloride 0.9% 1, 120 500 000 ml @ 75 mls/hr IV . [id number] [facility] Rx#:[id number] Oral 500 Output: Drainage 900 Thoracentesis 900 Urine 600 Other: Voiding Method Urinal Urinal Urinal - Exam - Exam PHYSICAL EXAM: VITAL SIGNS: [As above] GENERAL: Alert and oriented 3, Sitting up in in bed, no acute distress HEENT: Normocephalic, Conjunctivae normal. eyes normal. NECK: Supple, No JVD. No thyroid enlargement. CARDIOVASCULAR: S1, S2 regular. No murmur RESPIRATION: Equal air entry, diminished ABDOMEN: Soft, nontender . No guarding. no masses palpable. Positive Bowel sounds. NERVOUS SYSTEM: Cranial N 2-12 grossly normal. No focal deficits. Strength and sensation grossly intact. LEGS: No edema, no swelling, no clubbing, no cyanosis. Skin: Warm and dry, no rash. - Labs CBC & Chem 7: 03/11/23 05:45 03/11/23 05:45 Labs: Abnormal Lab Results - Last 24 Hours (Table) 03/11/23 03/11/23 03/11/23 Range/Units 05:46 08:42 11:53 POC Glucose (mg/dL) 127 H (70-110) mg/dL Lactate Dehydrogenase 325 H (120-246) U/L Fluid Appearance Slightly Cloudy A (Clear) 03/11/23 03/11/23 03/12/23 Range/Units 17:12 20:32 07:20 POC Glucose (mg/dL) 124 H 143 H 125 H (70-110) mg/dL Lactate Dehydrogenase (120-246) U/L Fluid Appearance (Clear) Microbiology - Last 24 Hours (Table) 03/11/23 08:42 Gram Stain - Preliminary Pleural Fluid Assessment and Plan Assessment: Acute COPD exacerbation, acute post obstructive pneumonia. Loculated left pleural effusion with atelectasis. Status post left thoracentesis, cultures/cytology pending. Right upper lung bronchus large airway occlusion with upstream plugging, findings concerning for obstructing mass. Findings new from prior CT, in a patient with history of right apical nodule measuring 10.7 mm June 2022. further outpatient follow-up with pulmonary. Acute hypoxic respiratory failure secondary to the above Hypertension Gastroesophageal reflux disease Hyperlipidemia Diverticulosis Ongoing nicotine dependence Plan: Continue on current medication regime ,monitoring and symptomatic treatment. Aggressive toileting with nebulized bronchodilators, steroids, antibiotics. Thoracentesis cultures/cytology pending. Repeat chest x-ray this morning reporting stable appearance but persistent left lung consolidation. Follow closely with pulmonary.PT/OT consulted. The impression and plan of care has been dictated as directed. : I performed a history and examination of this patient, discussed the same with the dictator. I agree with the dictator's note ,documented as a scribe. Any additional findings or plans will be noted.
[2023-03-12] MEDS: ATORVASTATIN 20 MG TAB PO SCH (19:28)
[2023-03-12 20:57] LABS: Glucose,Whole Blood 180 mg/dL (70-110)
--- NOTE | 2023-03-12 22:12 | CT ---
EXAMINATION TYPE: CT chest wo con DATE OF EXAM: 03/12/2023 COMPARISON: 03/07/2020 HISTORY: Follow-up parapneumonic effusion CT DLP: 622.80 mGycm, Automated exposure control for dose reduction was used. CONTRAST: Performed injected with mL of . TECHNIQUE: Axial images were obtained at 5 mm thick sections. Reconstructed images are reviewed on t computer in the coronal plane. FINDINGS: Portion of the thyroid visualized is normal. There is a small left pleural effusion. Emphysematous changes are present. There is a complex infiltrate within the anterior left lung. Some adjacent blebs and bulla are presen t. Some soft tissue density is present, example image series 3 image 29 measuring 1.2 cm. Additional soft tissue along the anterior lateral left upper lung field. There is some improvement over the int erval. No enlarged mediastinal or hilar adenopathy is evident. The ascending aorta diameter at the level o f the main pulmonary artery is 0.5 cm. The main pulmonary artery diameter at the bifurcation is 2.8 cm. Coronary artery calcification is present. Limited CT sections are obtained through the upper abdomen. Renal cysts are evident. The largest on t he anterior left mid kidney measuring 8 cm. Bilateral nonobstructing renal stones are present. Cholel ithiasis is present. IMPRESSIONS: 1. Improving complex consolidation anterior lateral left upper lung field. Continued follow-up is rec ommended.
[2023-03-13] MEDS: PIPERACILLIN-TAZOBACTAM 3.375 GM in SODIUM CHLORIDE 0.9% 100 ML IVPB SCH ×3 (00:05→15:43)
[2023-03-13] MEDS: methylPREDNISolone SOD SUCCI 125 MG/2 ML VIAL IV SCH ×4 (00:06→18:07)
[2023-03-13] MEDS: SODIUM CHLORIDE 0.9% 1,000 ML IV SCH (06:20)
[2023-03-13] MEDS: FORMOTEROL FUMARATE 20 MCG/2 ML NEBU INHALATION SCH ×2 (07:16→19:57)
[2023-03-13] MEDS: IPRATROPIUM-ALBUTEROL 3 ML NEB INHALATION SCH ×4 (07:16→19:57)
[2023-03-13] MEDS: BUDESONIDE 1 MG/2 ML NEBU INHALATION SCH ×2 (07:16→19:57)
[2023-03-13 07:44] LABS: Glucose,Whole Blood 122 mg/dL (70-110)
[2023-03-13] MEDS: INSULIN ASPART (NovoLOG) 100 UNIT/ML VIAL SQ SCH ×4 (08:33→21:03)
[2023-03-13] MEDS: BISOPROLOL-HCTZ 5-6.25 MG 1 EACH TAB PO SCH (08:34)
[2023-03-13] MEDS: amLODIPine 10 MG TAB PO SCH (08:34)
[2023-03-13] MEDS: PANTOPRAZOLE 40 MG TABLET PO SCH ×2 (08:34→21:03)
[2023-03-13] MEDS: lisinopriL 20 MG TAB PO SCH (08:34)
--- NOTE | 2023-03-13 10:52 | P.PN ---
Subjective Progress Note Date: 03/13/23 Maintained on nebulized bronchodilators, IV steroids, Zosyn, azithromycin . Pro-calcitonin 0.06, afebrile, normal WBC.Chest CT reported loculated left-sided pleural effusion with associated atelectasis, new anterior left consolidation changes, right upper lung bronchus large airway occlusion with upstream plugging, findings concerning for obstructing mass. Findings new from prior CT. Moderate to severe emphysema changes. Ultrasound of the chest report. Left pleural effusion pocket 6.83 cm/marked for thoracentesis. Pre-thoracentesis, requiring 5 L nasal cannula to maintain O2 sats in the low 90s.Left thoracentesis performed earlier this morning, with 900 MLS of turbid colored drainage. Tolerated procedure well. Chest x-ray postprocedure reporting no evidence of pneumothorax. Postprocedure, decreased oxygen requirements, maintaining O2 sats in the 90s on 3 L nasal cannula. Denies chest pain, palpitations. 03/12/2023 status post left thoracentesis yesterday , cultures/cytology pending. repeat chest x-ray this morning reporting persistent left lung consolidation. continues on nebulized bronchodilators, IV steroids, Zosyn, maintaining O2 sats in the 90s on 4 L nasal cannula. 03/13/23 reports he ambulated in hallway with PT. Continues to require 4 L nasal cannula to maintain O2 sats in the 90s .Maintained on IV Zosyn, nebulized bronchodilators and IV steroids. Blood sugars controlled.Currently sitting up in chair, reports breathing easier. Pleural cytology pending, preliminary pleural fluid cultures reporting no growth after 48 hours. Positive bowel movement. Denies chest pain, palpitations. Objective - Vital Signs Vital signs: Vital Signs Temp 97.7 F 03/13/23 07:42 Pulse 96 03/13/23 07:42 Resp 19 03/13/23 07:42 BP 118/78 03/13/23 07:42 Pulse Ox 94 L 03/13/23 07:42 FiO2 Intake & Output 03/12/23 03/13/23 03/13/23 18:59 06:59 18:59 Output Total 400 Balance -400 Output: Urine 400 Other: Voiding Method Urinal Urinal Urinal # Voids 1 # Bowel Movements 1 - Exam - Exam PHYSICAL EXAM: VITAL SIGNS: [As above] GENERAL: Alert and oriented 3, Sitting up in a chair, no acute distress HEENT: Normocephalic, Conjunctivae normal. eyes normal. NECK: Supple, No JVD. No thyroid enlargement. CARDIOVASCULAR: S1, S2 regular. No murmur RESPIRATION: Better air entry, scattered rhonchi throughout left lung, diminished bases. ABDOMEN: Soft, nontender . No guarding. no masses palpable. Positive Bowel sounds. NERVOUS SYSTEM: Cranial N 2-12 grossly normal. No focal deficits. Strength and sensation grossly intact. LEGS: No edema, no swelling, no clubbing, no cyanosis. Skin: Warm and dry, no rash. - Labs CBC & Chem 7: 03/11/23 05:45 03/11/23 05:45 Labs: Abnormal Lab Results - Last 24 Hours (Table) 03/12/23 03/12/23 03/13/23 Range/Units 12:05 20:46 07:42 POC Glucose (mg/dL) 178 H 180 H 122 H (70-110) mg/dL Microbiology - Last 24 Hours (Table) 03/11/23 08:42 Gram Stain - Preliminary Pleural Fluid Body Fluid Culture - Preliminary 03/07/23 14:26 Blood Culture - Final Blood Assessment and Plan Assessment: Acute COPD exacerbation, acute post obstructive pneumonia. Loculated left pleural effusion with atelectasis. Status post left thoracentesis, cultures/cytology pending. Right upper lung bronchus large airway occlusion with upstream plugging, findings concerning for obstructing mass. Findings new from prior CT, in a patient with history of right apical nodule measuring 10.7 mm June 2022. further outpatient follow-up with pulmonary. Acute hypoxic respiratory failure secondary to the above. Hypertension Gastroesophageal reflux disease Hyperlipidemia Diverticulosis Ongoing nicotine dependence Plan: Continue on current medication regime ,monitoring and symptomatic treatment. Increase ambulation as tolerated, PT .Maintain Aggressive toileting with nebulized bronchodilators, steroids, antibiotics. Thoracentesis cultures/cytology pending. Yesterday pulmonary discussing possible repeat CT- follow closely with pulmonary. The impression and plan of care has been dictated as directed. : I performed a history and examination of this patient, discussed the same with the dictator. I agree with the dictator's note ,documented as a scribe. Any additional findings or plans will be noted.
[2023-03-13 11:55] LABS: Glucose,Whole Blood 110 mg/dL (70-110)
[2023-03-13] MEDS: VIT A,C & E-LUTEIN-MINERALS 1 EACH TAB PO SCH (12:34)
[2023-03-13 14:37] LABS: Basophils # (A) 0.02 X 10*3/uL (0.00-0.10); Basophils % (A) 0.2 %; Eosinophils # (A) 0 X 10*3/uL (0.04-0.35); Eosinophils % (A) 0 %; HCT 49.9 % (39.6-50.0); HGB 15.5 d/dL (13.0-17.0); Lymphocytes # (A) 0.28 X 10*3/uL (0.90-5.00); Lymphocytes % (A) 2.7 %; MCH 29.6 pg (27.0-32.0); MCHC 31.1 d/dL (32.0-37.0); MCV 95.4 FL (80.0-97.0); Mean Platelet Volume 11.1 FL (9.5-12.2); Monocytes # (A) 0.18 X 10*3/uL (0.20-1.00); Monocytes % (A) 1.7 %; NRBC Per 100 WBC 0 X 10*3/uL (0.00-0.01); Neutrophils # (A) 9.76 X 10*3/uL (1.80-7.70); Neutrophils % (A) 93.5 %; Platelet Count 223 X 10*3/uL (140-440); RBC 5.23 X 10*6/uL (4.40-5.60); RDW 14.9 % (11.5-14.5); WBC 10.44 X 10*3/uL (4.50-10.00)
[2023-03-13 15:20] VITALS: BMI 26.6
[2023-03-13 17:10] LABS: Glucose,Whole Blood 110 mg/dL (70-110)
--- NOTE | 2023-03-13 17:10 | P.PN ---
Subjective Progress Note Date: 03/13/23 This is 73-year-old male patient with a known history of hypertension, hyperlipidemia, chronic and ongoing tobacco dependence of greater than 50 years, chronic obstructive pulmonary disease with an FEV1 value. 7% of predicted. He is not oxygen dependent. He follows with Dr. Nguyen in our office. He did have a computed tomography scan in June 2022 that revealed a new right apical nodule measuring 10 x 7 mm that was being followed in the outpatient setting. He presented here to the emergency room yesterday with increasing shortness of breath, cough and congestion. No fever or chills. No nausea or vomiting. No chest pain. His saturations were as low as 84% on room air. He's currently on 4 L nasal cannula. Chest x-ray shows multifocal pneumonia in the left lung. Underlying neoplasm not excluded. CT angiogram ruled out pulmonary embolism. There is a loculated left pleural effusion with associated atelectasis. Consolidation changes and left anterior lung are new compared to June 2022. Right upper lung bronchus with the large airway occlusion with upstream plugging. Findings concerning for obstructing mass. Findings are new compared to June 2022. Moderate to severe emphysematous changes. White count 11.4. Hemoglobin 15.6. Platelets 228. Sodium 142. Potassium 4.6. Bicarb 27. BUN 16. Creatinine 0.9. Glucose 132. Influenza screen negative. RSV screen negative. COVID-19 screen negative. The patient is seen today in consultation on the regular medical floor. He is currently sitting up in bed. Awake and alert in no acute distress. He is to submit with exertion. Dyspneic with minimal conversation. He is maintaining O2 saturation in the 90s on 4 L/m per nasal cannula. Still somewhat bronchospastic and wheezing. The patient is seen today 03/09/2023 in follow-up on the regular medical floor. He is currently sitting up in bed. Given a breathing treatment. Still with dyspnea on exertion. Dyspnea on conversation. A bit better today compared to yesterday. Not quite back to his baseline. He is maintaining O2 saturations in the 90s on 4 L/m per nasal cannula. Normal saline at 75 ML's per hour. Blood glucose 133. He is continued on DuoNeb inhalations, Pulmicort and Perforomist inhalations, Solu-Medrol. On today's evaluation of a 03/10 2023, the patient still having some difficulties in breathing. I reviewed the CAT scan of the chest and there is a loculated left-sided pleural effusion along with left basilar consolidation. Presentation could be related to an underlying parapneumonic effusion which is somewhat located at this point in time. The patient remains on bronchodilators. The patient remains on IV Solu-Medrol. Antibiotic coverage with IV Zosyn. Noted the patient's baseline pro-calcitonin level was at 0.06. The white cell count is not elevated and the patient's echoes 11.3 with a hemoglobin of 15.6. The patient is currently on 4 L of O2 nasal cannula with a pulse ox of 90%. The patient continues to have shortness of breath. The patient advanced COPD with diffuse emphysematous changes bilaterally. I reviewed the CTA of the chest and there is no evidence of any pulmonary embolism. Nevertheless, as mentioned, there is a lot of left-sided pleural effusion along with left basilar atelectas is, severe underlying baseline emphysema in addition to areas of patchy consolidation mainly involving the left lung. 03/11/2023, I'm seeing the patient for a follow-up. As mentioned yesterday, the patient had a pneumonia with a parapneumonic effusion on the left, and an ultrasound of the chest was done yesterday and it showed a 6 cm^ in the left lung. Based on that, I performed a bedside thoracentesis on this patient and a total of 900 mL of pleural fluid was aspirated from the left lung. The chest x- rays to follow. Meanwhile, the patient remains on IV Zosyn and Zithromax. He remains on bronchodilators. He remains on steroids. His blood work from today is still pending. No other significant events overnight. The patient is on 5 L of oxygen by nasal cannula with a pulse ox of 91%. As such, the thoracentesis was completed successfully and the patient is awaiting a follow-up chest x-ray. 03/12/2023, the patient is feeling slightly improved compared to yesterday. I performed a thoracentesis on the left lung and a total of 900 mL's of pleural fluid was aspirated. In follow-up, the patient is still on oxygen at 4 L of nasal cannula. The patient is afebrile. No new labs are available from today. The pleural fluid was an exudate and the cultures from the pleural fluid is still pending for now. Fluid cytology is also pending. The repeat chest x-ray still showing persistent left lung consolidation. His heart to say if there is any other residual pockets of pleural fluid. I think the patient deserves another follow-up CAT scan of the chest. Meanwhile, the patient is still on IV antibiotics and the patient is currently on IV Zosyn. The patient is on bronchodilators. The patient on IV Solu-Medrol 60 mg every 6 hours. IV fluids are running at 75 mL an hour. 03/13/2023, the patient has no new complaints. A repeat CAT scan of the chest was done yesterday, and the CAT scan showed improvement in the complex consolidation and the anterior and lateral left upper lung field. Is also pulmonary left-sided pleural effusion. The patient is currently was re commended antibiotics. The patient remains on IV Zosyn. The visit at 10.4 with a hemoglobin of 15.5. No fever. He is on 4 L of oxygen by nasal cannula with pulse ox of 90%. Is using the incentive spirometer. He remains on bronchodilators. He remains on steroids. Noted the patient underwent a thoracentesis and total of 900 mL of fluid was aspirated from the left lung. Unfortunately, the fluid was an exudate in the fluid cytology was consistent with metastatic adenocarcinoma consistent with lung primary. Repeat CAT scan of the chest shows improvement in size of left-sided pleural effusion Objective - Vital Signs Vital signs: Vital Signs Temp 97.7 F 03/13/23 07:42 Pulse 98 03/13/23 11:09 Resp 19 03/13/23 07:42 BP 118/78 03/13/23 07:42 Pulse Ox 94 L 03/13/23 07:42 FiO2 Intake & Output 03/12/23 03/13/23 03/13/23 18:59 06:59 18:59 Output Total 400 Balance -400 Output: Urine 400 Other: Voiding Method Urinal Urinal Urinal # Voids 1 # Bowel Movements 1 - Exam GENERAL EXAM: Alert, 73-year-old male, on 4 L nasal cannula, comfortable in no apparent distress. HEAD: Normocephalic. EYES: Normal reaction of pupils, equal size. NOSE: Clear with pink turbinates. THROAT: No erythema or exudates. NECK: No masses, no JVD. CHEST: No chest wall deformity. LUNGS: Equal air entry with bilateral end expiratory wheeze, scattered rhonchi, diminished. CVS: S1 and S2 normal with no audible murmur, regular rhythm. ABDOMEN: No hepatosplenomegaly, normal bowel sounds, no guarding or rigidity. SPINE: No scoliosis or deformity SKIN: No rashes CENTRAL NERVOUS SYSTEM: No focal deficits, tone is normal in all 4 extremities. EXTREMITIES: There is no peripheral edema. No clubbing, no cyanosis. Peripheral pulses are intact. - Labs CBC & Chem 7: 03/13/23 06:29 03/11/23 05:45 Labs: Abnormal Lab Results - Last 24 Hours (Table) 03/12/23 03/12/23 03/13/23 Range/Units 12:05 20:46 07:42 POC Glucose (mg/dL) 178 H 180 H 122 H (70-110) mg/dL Microbiology - Last 24 Hours (Table) 03/11/23 08:42 Gram Stain - Preliminary Pleural Fluid Body Fluid Culture - Preliminary 03/07/23 14:26 Blood Culture - Final Blood Assessment and Plan Plan: Acute hypoxemic respiratory failure secondary to an acute exacerbation of chronic obstructive pulmonary disease complicated by postobstructive pneumonia. CT angiogram ruled out pulmonary embolism. There is a loculated left pleural effusion with associated atelectasis. Consolidation changes and left anterior lung are new compared to June 2022. Findings are new compared to June 2022. Moderate to severe emphysematous changes. This is consistent with pneumonia and the patient also had a complex left-sided pleural effusion that was drained, fluid is malignant consistent with adenocarcinoma of a lung primary Metastatic adenocarcinoma with malignant left-sided pleural effusion postthoracentesis. Fluid cytology was positive for malignancy/adenocarcinoma Loculated pleural effusion , postthoracentesis and the fluid is malignant History of right apical nodule measuring 10.7 mm in June 2022 Chronic obstructive pulmonary disease his FEV1 value 57% of predicted Chronic and ongoing tobacco dependence greater than 50 years Hypertension Hyperlipidemia History of gastroesophageal reflux disease Plan: Consult with medical oncology Diagnosis to be discuss with the patient Follow-up CAT scan results are favorable and there is improvement in the left lung consolidation Improvement left-sided pleural effusion, ESSENTIALLY malignant Oxygenation is stable and patient is currently on 4 L of O2 nasal cannula Continue Zosyn Continue bronchodilators, steroids Titrate the FiO2 as tolerated We will continue to follow Prognosis poor based above-mentioned comorbidities
[2023-03-13 20:33] LABS: Glucose,Whole Blood 154 mg/dL (70-110)
[2023-03-13] MEDS: ATORVASTATIN 20 MG TAB PO SCH (21:03)
[2023-03-14] MEDS: PIPERACILLIN-TAZOBACTAM 3.375 GM in SODIUM CHLORIDE 0.9% 100 ML IVPB SCH ×3 (00:08→16:50)
[2023-03-14] MEDS: methylPREDNISolone SOD SUCCI 125 MG/2 ML VIAL IV SCH ×4 (00:09→18:32)
[2023-03-14 01:04] LABS: Blood Urea Nitrogen 18.3 mg/dL (9.0-27.0); Calcium 8.8 mg/dL (8.7-10.3); Carbon Dioxide 35.2 mmol/L (21.6-31.8); Chloride 99 mmol/L (96-109); Glucose 136 mg/dL (70-110); Potassium 4.8 mmol/L (3.5-5.5); Sodium 141 mmol/L (135-145)
[2023-03-14] MEDS: SODIUM CHLORIDE 0.9% 1,000 ML IV SCH (06:24)
[2023-03-14] MEDS: BUDESONIDE 1 MG/2 ML NEBU INHALATION SCH ×2 (06:32→20:29)
[2023-03-14] MEDS: FORMOTEROL FUMARATE 20 MCG/2 ML NEBU INHALATION SCH ×2 (06:32→20:29)
[2023-03-14] MEDS: IPRATROPIUM-ALBUTEROL 3 ML NEB INHALATION SCH ×4 (06:32→20:29)
[2023-03-14 07:12] LABS: Glucose,Whole Blood 125 mg/dL (70-110)
[2023-03-14] MEDS: INSULIN ASPART (NovoLOG) 100 UNIT/ML VIAL SQ SCH ×4 (07:56→21:05)
[2023-03-14] MEDS: PANTOPRAZOLE 40 MG TABLET PO SCH ×2 (08:26→21:05)
[2023-03-14] MEDS: lisinopriL 20 MG TAB PO SCH (08:26)
[2023-03-14] MEDS: amLODIPine 10 MG TAB PO SCH (08:26)
[2023-03-14 11:44] LABS: Glucose,Whole Blood 143 mg/dL (70-110)
[2023-03-14] MEDS: VIT A,C & E-LUTEIN-MINERALS 1 EACH TAB PO SCH (13:26)
[2023-03-14] MEDS: BISOPROLOL-HCTZ 5-6.25 MG 1 EACH TAB PO SCH (13:26)
--- NOTE | 2023-03-14 13:52 | P.DS ---
Providers Date of admission: 03/07/23 16:25 Expected date of discharge: 03/14/23 Attending physician: Antoine Nichols Consults: 03/07/23 16:24 Consult Physician Routine Consulting Provider: Braxton Eason Consult Reason/Comments: pna Do you want consulting provider notified?: Yes 03/13/23 17:11 Consult Physician Routine Consulting Provider: Ranjit Landers Consult Reason/Comments: metastatic lung cancer Do you want consulting provider notified?: Yes Primary care physician: Antoine Nichols - Discharge Diagnosis(es) (1) Acute and chronic respiratory failure ([id number]) Current Visit: Yes Status: Acute (2) Essential (primary) hypertension Current Visit: Yes Status: Acute (3) Mixed hyperlipidemia Current Visit: Yes Status: Acute (4) Acute exacerbation of chronic obstructive pulmonary disease Current Visit: Yes Status: Acute (5) Hypoxia Current Visit: Yes Status: Acute (6) Lung mass Current Visit: Yes Status: Acute (7) Pleural effusion, left Current Visit: Yes Status: Acute (8) Tobacco dependence Current Visit: Yes Status: Acute (9) Adenocarcinoma of lung Current Visit: Yes Status: Acute Hospital Course: 03/11/2023 Maintained on nebulized bronchodilators, IV steroids, Zosyn, azithromycin . Pro-calcitonin 0.06, afebrile, normal WBC.Chest CT reported loculated left-sided pleural effusion with associated atelectasis, new anterior left consolidation changes, right upper lung bronchus large airway occlusion with upstream plugging, findings concerning for obstructing mass. Findings new from prior CT. Moderate to severe emphysema changes. Ultrasound of the chest report. Left pleural effusion pocket 6.83 cm/marked for thoracentesis. Pre-thoracentesis, requiring 5 L nasal cannula to maintain O2 sats in the low 90s.Left tho racentesis performed earlier this morning, with 900 MLS of turbid colored drainage. Tolerated procedure well. Chest x-ray postprocedure reporting no evidence of pneumothorax. Postprocedure, decreased oxygen requirements, maintaining O2 sats in the 90s on 3 L nasal cannula. Denies chest pain, palpitations. 03/12/2023 status post left thoracentesis yesterday , cultures/cytology pending. repeat chest x-ray this morning reporting persistent left lung consolidation. continues on nebulized bronchodilators, IV steroids, Zosyn, maintaining O2 sats in the 90s on 4 L nasal cannula. 03/13/23 reports he ambulated in hallway with PT. Continues to require 4 L nasal cannula to maintain O2 sats in the 90s .Maintained on IV Zosyn, nebulized bronchodilators and IV steroids. Blood sugars controlled.Currently sitting up in chair, reports breathing easier. Pleural cytology pending, preliminary pleural fluid cultures reporting no growth after 48 hours. Positive bowel movement. Denies chest pain, palpitations. 03/14/2023:Patient is feeling much better. Oxygen evaluation shows a pulse ox of 87% on room, air with ambulation, 90% at rest.His plural effusion was found to have malignant cells in it. This was discussed with him and the cable tool operator. At this time he will be discharged home, he will follow up with family, medicine, pulmonology, and oncology next week. He was originally admited for pneumonia and acute COPD, pleural effucion, and respirtatory failure Patient Condition at Discharge: Fair Plan - Discharge Summary New Discharge Prescriptions: New Amoxic-Pot Clav 875-125Mg [Augmentin 875-125] 1 tab PO Q12HR 5 Days #10 tab lisinopriL [Zestril] 20 mg PO DAILY 30 Days #30 tab Continue Simvastatin [Zocor] 40 mg PO HS Bisoprolol-Hctz 5-6.25 mg [Ziac 5-6.25 MG] 1 tab PO DAILY amLODIPine BESYLATE/BENAZEPRIL [amLODIPine BESYLATE/BENAZEPRIL 10-20 MG] 1 cap PO DAILY Ubidecarenone [Co Q-10] 10 mg PO DAILY@1200 Fluticasone/Umeclidin/Vilanter [Trelegy Ellipta 100-62.5-25] 1 puff INHALATION RT-DAILY Vit C/E/Zn/Coppr/Lutein/Zeaxan [Preservision Areds 2 Softgel] 1 tab PO DAILY@1200 Omeprazole Magnesium [PriLOSEC OTC] 20 mg PO BID Ketoconazole 2% Shampoo [Nizoral] 1 applic TOPICAL DAILY PRN PRN Reason: FLARE UPS Fluocinonide 0.05% Solution 1 applic TOPICAL HS PRN PRN Reason: FLARE UPS Albuterol Nebulized [Ventolin Nebulized] 2.5 mg INHALATION RT-TID Albuterol Inhaler [Ventolin Hfa Inhaler] 1 - 2 puff INHALATION RT-Q6H PRN PRN Reason: Shortness Of Breath Turmeric Root Extract [Turmeric] 500 mg PO HS Krill/Om-3/Dha/Epa/Phospho/Ast [Krill Oil 500 mg Softgel] 1 cap PO DAILY@1200 Discharge Medication List Bisoprolol-Hctz 5-6.25 mg [Ziac 5-6.25 MG] 1 tab PO DAILY 08/24/16 [History] Simvastatin [Zocor] 40 mg PO HS 08/24/16 [History] Ubidecarenone [Co Q-10] 10 mg PO DAILY@1200 08/24/16 [History] amLODIPine BESYLATE/BENAZEPRIL [amLODIPine BESYLATE/BENAZEPRIL 10-20 MG] 1 cap PO DAILY 08/24/16 [History] Fluticasone/Umeclidin/Vilanter [Trelegy Ellipta 100-62.5-25] 1 puff INHALATION RT-DAILY 07/25/20 [History] Omeprazole Magnesium [PriLOSEC OTC] 20 mg PO BID 07/25/20 [History] Vit C/E/Zn/Coppr/Lutein/Zeaxan [Preservision Areds 2 Softgel] 1 tab PO DAILY@1200 07/25/20 [History] Albuterol Inhaler [Ventolin Hfa Inhaler] 1 - 2 puff INHALATION RT-Q6H PRN 03/07/23 [History] Albuterol Nebulized [Ventolin Nebulized] 2.5 mg INHALATION RT-TID 03/07/23 [History] Fluocinonide 0.05% Solution 1 applic TOPICAL HS PRN 03/07/23 [History] Ketoconazole 2% Shampoo [Nizoral] 1 applic TOPICAL DAILY PRN 03/07/23 [History] Krill/Om-3/Dha/Epa/Phospho/Ast [Krill Oil 500 mg Softgel] 1 cap PO DAILY@1200 03/07/23 [History] Turmeric Root Extract [Turmeric] 500 mg PO HS 03/07/23 [History] Amoxic-Pot Clav 875-125Mg [Augmentin 875-125] 1 tab PO Q12HR 5 Days #10 tab 03/14/23 [Rx] lisinopriL [Zestril] 20 mg PO DAILY 30 Days #30 tab 03/14/23 [Rx] Follow up Appointment(s)/Referral(s): [facility] [NON-STAFF] - 1 Week Antoine Nichols MD [Primary Care Provider] - 1-2 days Rommel Nguyen MD [STAFF PHYSICIAN] - 1 Week Ranjit Landers [STAFF PHYSICIAN] - 1 Week Discharge Disposition: HOME SELF-CARE
--- NOTE | 2023-03-14 14:42 | P.PN ---
Subjective Progress Note Date: 03/14/23 This is 73-year-old male patient with a known history of hypertension, hyperlipidemia, chronic and ongoing tobacco dependence of greater than 50 years, chronic obstructive pulmonary disease with an FEV1 value. 7% of predicted. He is not oxygen dependent. He follows with Dr. Nguyen in our office. He did have a computed tomography scan in June 2022 that revealed a new right apical nodule measuring 10 x 7 mm that was being followed in the outpatient setting. He presented here to the emergency room yesterday with increasing shortness of breath, cough and congestion. No fever or chills. No nausea or vomiting. No chest pain. His saturations were as low as 84% on room air. He's currently on 4 L nasal cannula. Chest x-ray shows multifocal pneumonia in the left lung. Underlying neoplasm not excluded. CT angiogram ruled out pulmonary embolism. There is a loculated left pleural effusion with associated atelectasis. Consolidation changes and left anterior lung are new compared to June 2022. Right upper lung bronchus with the large airway occlusion with upstream plugging. Findings concerning for obstructing mass. Findings are new compared to June 2022. Moderate to severe emphysematous changes. White count 11.4. Hemoglobin 15.6. Platelets 228. Sodium 142. Potassium 4.6. Bicarb 27. BUN 16. Creatinine 0.9. Glucose 132. Influenza screen negative. RSV screen negative. COVID-19 screen negative. The patient is seen today in consultation on the regular medical floor. He is currently sitting up in bed. Awake and alert in no acute distress. He is to submit with exertion. Dyspneic with minimal conversation. He is maintaining O2 saturation in the 90s on 4 L/m per nasal cannula. Still somewhat bronchospastic and wheezing. The patient is seen today 03/09/2023 in follow-up on the regular medical floor. He is currently sitting up in bed. Given a breathing treatment. Still with dyspnea on exertion. Dyspnea on conversation. A bit better today compared to yesterday. Not quite back to his baseline. He is maintaining O2 saturations in the 90s on 4 L/m per nasal cannula. Normal saline at 75 ML's per hour. Blood glucose 133. He is continued on DuoNeb inhalations, Pulmicort and Perforomist inhalations, Solu-Medrol. On today's evaluation of a 03/10 2023, the patient still having some difficulties in breathing. I reviewed the CAT scan of the chest and there is a loculated left-sided pleural effusion along with left basilar consolidation. Presentation could be related to an underlying parapneumonic effusion which is somewhat located at this point in time. The patient remains on bronchodilators. The patient remains on IV Solu-Medrol. Antibiotic coverage with IV Zosyn. Noted the patient's baseline pro-calcitonin level was at 0.06. The white cell count is not elevated and the patient's echoes 11.3 with a hemoglobin of 15.6. The patient is currently on 4 L of O2 nasal cannula with a pulse ox of 90%. The patient continues to have shortness of breath. The patient advanced COPD with diffuse emphysematous changes bilaterally. I reviewed the CTA of the chest and there is no evidence of any pulmonary embolism. Nevertheless, as mentioned, there is a lot of left-sided pleural effusion along with left basilar atelectas is, severe underlying baseline emphysema in addition to areas of patchy consolidation mainly involving the left lung. 03/11/2023, I'm seeing the patient for a follow-up. As mentioned yesterday, the patient had a pneumonia with a parapneumonic effusion on the left, and an ultrasound of the chest was done yesterday and it showed a 6 cm^ in the left lung. Based on that, I performed a bedside thoracentesis on this patient and a total of 900 mL of pleural fluid was aspirated from the left lung. The chest x- rays to follow. Meanwhile, the patient remains on IV Zosyn and Zithromax. He remains on bronchodilators. He remains on steroids. His blood work from today is still pending. No other significant events overnight. The patient is on 5 L of oxygen by nasal cannula with a pulse ox of 91%. As such, the thoracentesis was completed successfully and the patient is awaiting a follow-up chest x-ray. 03/12/2023, the patient is feeling slightly improved compared to yesterday. I performed a thoracentesis on the left lung and a total of 900 mL's of pleural fluid was aspirated. In follow-up, the patient is still on oxygen at 4 L of nasal cannula. The patient is afebrile. No new labs are available from today. The pleural fluid was an exudate and the cultures from the pleural fluid is still pending for now. Fluid cytology is also pending. The repeat chest x-ray still showing persistent left lung consolidation. His heart to say if there is any other residual pockets of pleural fluid. I think the patient deserves another follow-up CAT scan of the chest. Meanwhile, the patient is still on IV antibiotics and the patient is currently on IV Zosyn. The patient is on bronchodilators. The patient on IV Solu-Medrol 60 mg every 6 hours. IV fluids are running at 75 mL an hour. 03/13/2023, the patient has no new complaints. A repeat CAT scan of the chest was done yesterday, and the CAT scan showed improvement in the complex consolidation and the anterior and lateral left upper lung field. Is also pulmonary left-sided pleural effusion. The patient is currently was re commended antibiotics. The patient remains on IV Zosyn. The visit at 10.4 with a hemoglobin of 15.5. No fever. He is on 4 L of oxygen by nasal cannula with pulse ox of 90%. Is using the incentive spirometer. He remains on bronchodilators. He remains on steroids. Noted the patient underwent a thoracentesis and total of 900 mL of fluid was aspirated from the left lung. Unfortunately, the fluid was an exudate in the fluid cytology was consistent with metastatic adenocarcinoma consistent with lung primary. Repeat CAT scan of the chest shows improvement in size of left-sided pleural effusion 03/14/2023, the patient is aware of his diagnosis of malignant left-sided pleural effusion with adenocarcinoma. He is doing well and no specific complaints. He is considered being discharged home after being seen by oncology. He will need outpatient workup for malignancy including a PET/CT. The patient otherwise is stable on 4 L of O2 nasal cannula. No new labs from today. Objective - Vital Signs Vital signs: Vital Signs Temp 98.2 F 03/14/23 12:58 Pulse 105 H 03/14/23 12:58 Resp 16 03/14/23 12:58 BP 159/81 03/14/23 12:58 Pulse Ox 95 03/14/23 12:58 FiO2 Intake & Output 03/13/23 03/14/23 03/14/23 18:59 06:59 18:59 Output Total 400 Balance -400 Weight 77.111 kg Output: Urine 400 Other: Voiding Method Urinal Urinal Urinal # Bowel Movements 1 - Labs CBC & Chem 7: 03/13/23 06:29 03/13/23 06:29 Labs: Abnormal Lab Results - Last 24 Hours (Table) 03/13/23 03/13/23 03/14/23 Range/Units 06:29 20:31 07:11 Carbon Dioxide 35.2 H (21.6-31.8) mmol/L BUN/Creatinine Ratio 30.50 H (12.00-20.00) Ratio Glucose 136 H (70-110) mg/dL POC Glucose (mg/dL) 154 H 125 H (70-110) mg/dL 03/14/23 Range/Units 11:43 Carbon Dioxide (21.6-31.8) mmol/L BUN/Creatinine Ratio (12.00-20.00) Ratio Glucose (70-110) mg/dL POC Glucose (mg/dL) 143 H (70-110) mg/dL Microbiology - Last 24 Hours (Table) 03/11/23 08:42 Gram Stain - Preliminary Pleural Fluid Body Fluid Culture - Preliminary 03/11/23 08:42 Anaerobic Culture - Preliminary Pleural Fluid Assessment and Plan Plan: Acute hypoxemic respiratory failure secondary to an acute exacerbation of chronic obstructive pulmonary disease complicated by postobstructive pneumonia. CT angiogram ruled out pulmonary embolism. There is a loculated left pleural effusion with associated atelectasis. Consolidation changes and left anterior lung are new compared to June 2022. Findings are new compared to June 2022. Moderate to severe emphysematous changes. This is consistent with pneumonia and the patient also had a complex left-sided pleural effusion that was drained, fluid is malignant consistent with adenocarcinoma of a lung primary Metastatic adenocarcinoma with malignant left-sided pleural effusion postthoracentesis. Fluid cytology was positive for malignancy/adenocarcinoma Loculated pleural effusion , postthoracentesis and the fluid is malignant History of right apical nodule measuring 10.7 mm in June 2022 Chronic obstructive pulmonary disease his FEV1 value 57% of predicted Chronic and ongoing tobacco dependence greater than 50 years Hypertension Hyperlipidemia History of gastroesophageal reflux disease Plan: Consult with medical oncology, awaiting an oncology consultation Diagnosis was discussed with the patient larynx Follow-up CAT scan results are favorable and there is improvement in the left lung consolidation Improvement left-sided pleural effusion, ESSENTIALLY malignant We'll need an outpatient PET/CT Oxygenation is stable and patient is currently on 4 L of O2 nasal cannula The patient can be discharged home on a course of oral antibiotics and the patient will be given oral Augmentin Continue bronchodilators, steroids in the form of prednisone burst taper Titrate the FiO2 as tolerated, he has home O2 We will continue to follow Prognosis poor based above-mentioned comorbidities Discharge home today following his oncology consultation
[2023-03-14 17:17] LABS: Glucose,Whole Blood 119 mg/dL (70-110)
[2023-03-14 17:44] LABS: African American GFR (CKD) >90 (>60 ml/min/1.73 sqM); Anion Gap 1 mmol/L; Blood Urea Nitrogen 25 mg/dL (9-20); Calcium 8.5 mg/dL (8.4-10.2); Carbon Dioxide 39 mmol/L (22-30); Chloride 96 mmol/L (98-107); Glucose 108 mg/dL (74-99); Non-African American GFR(CKD) >90 (>60 ml/min/1.73 sqM); Potassium 4.6 mmol/L (3.5-5.1); Sodium 136 mmol/L (137-145)
[2023-03-14 20:15] LABS: Glucose,Whole Blood 164 mg/dL (70-110)
--- NOTE | 2023-03-14 20:36 | MR ---
EXAMINATION TYPE: MR brain wo/w con DATE OF EXAM: 03/14/2023 7:35 PM CLINICAL INDICATION:Male, 73 years old with history of met lung adenocarcinoma; Met lung adenocarcino ma. COMPARISON: None TECHNIQUE: Multi planar, multi sequence imaging was performed through the brain including: T1, T2, In version recovery, susceptibility weighted imaging and gradient echo imaging and Diffusion weighted im aging. The patient was then given intravenous contrast and multi planar, T1 fat-saturation images wer e obtained. IV Contrast: 7.5 cc Gadavist FINDINGS: Cerebral atrophy with proportional dilation to the ventricular system. Scattered periventricular and deep white matter high T2/FLAIR signal. Diffusion-weighted imaging shows no evidence of restricted di ffusion to suggest acute/subacute infarct. Intracranial arterial flow voids are maintained. Midline s tructures show no abnormality. The susceptibility weighted images do not reveal any evidence for micr o-hemorrhage. After administration of gadolinium, no abnormal enhancement is seen. The bone marrow signal is within normal limits. Paranasal sinuses and mastoid air cells: No significant paranasal sinus disease. Visualized orbits: Bilateral aphakia. IMPRESSION: 1. No evidence of intracranial mass, acute/subacute infarct, or abnormal enhancement. 2. Nonspecific white matter changes, likely related to small vessel ischemic disease
--- NOTE | 2023-03-14 20:48 | CT ---
EXAMINATION TYPE: CT abdomen pelvis w con CT DLP: 920.2 mGycm, Automated exposure control for dose reduction was used. DATE OF EXAM: 03/14/2023 5:13 PM COMPARISON: CT chest 03/12/2023, PET/CT 06/15/2021 CLINICAL INDICATION:Male, 73 years old with history of met lung adenocarcinoma; adenocarcinoma TECHNIQUE: Axial CT of the abdomen and pelvis. Sagittal and coronal reformats were created on a [employer] workstation. Contrast used:100ml mL of Isovue 300 with IV Contrast, (none if empty) Oral contrast used: without Oral Contrast (none if empty) FINDINGS: LOWER CHEST: Similar small left pleural effusion with associated atelectasis. The scattered glass opa cities remain. Multiple remote injuries to the right ribs. ABDOMEN LIVER: Unremarkable GALLBLADDER AND BILE DUCTS: Unremarkable. PANCREAS: Unremarkable. SPLEEN: Unremarkable. ADRENAL GLANDS: Unremarkable. KIDNEYS AND URETERS: No evidence of hydronephrosis or renal calculus. The ureters are unremarkable. Right renal cyst. Nonobstructing 3 mm calculus on the right. Large left renal cyst and 3 mm nonobstru cting calculus. PELVIS BLADDER: Unremarkable REPRODUCTIVE: Unremarkable. ABDOMEN & PELVIS STOMACH AND BOWEL: The colon is without evidence for abnormal wall thickening to suggest mass. No celeste dence of bowel obstruction. Scattered colonic diverticula. PERITONEUM/RETROPERITONEUM: No evidence of pneumoperitoneum or free fluid. VASCULATURE: Infrarenal abdominal aortic aneurysm measuring up to 3.8 cm with mural thrombus. MUSCULOSKELETAL: No acute osseous abnormalities, scoliosis changes to the spine. No suspicious lesion s. LYMPH NODES: No gross evidence for lymphadenopathy. SOFT TISSUE/ABDOMINAL WALL: Unremarkable IMPRESSION: 1. No evidence for lymphadenopathy or suspicious mass. 2. Scattered colonic diverticulosis. 3. Bilateral nonobstructing renal calculi. 4. Similar appearance of the base of the lungs compared to prior. 5. Infrarenal fusiform abdominal aortic aneurysm measuring up to 3.8 cm.
[2023-03-14] MEDS: ATORVASTATIN 20 MG TAB PO SCH (21:05)
--- NOTE | 2023-03-15 00:13 | P.CONS ---
History of Present Illness - Reason for Consult Consult date: 03/14/23 lung adenocarcinoma Requesting physician: Rommel Nguyen - Chief Complaint SOB - History of Present Illness Patient is a 73-year-old male with a significant history of hypertension, COPD, and nicotine dependence. We were consulted for lung adenocarcinoma. Patient presented to the emergency room with complaints of increasing shortness of breath. Upon admission CTA chest revealed no evidence of PE. Loculated left pleural effusion with associated atelectasis and consolidation changes in the left anterior lung. Right upper lung bronchus large airway occlusion with upstream plugging, concerning for obstructing mass. With moderate to severe emphysema changes.. CT chest showed improving complex consolidation anterior lateral left upper lung field, with adjacent blebs and bulla present and soft tissue density measuring 1.2 cm and additional soft tissue along the anterior lateral left upper lung field. Ultrasound of chest revealed left pleural eff usion pocket size measuring 6.83 cm. Patient underwent left-sided thoracentesis with pulmonology and 900 cc was removed. Cytology revealed metastatic adenocarcinoma consistent with primary pulmonary origin. At today's visit patient is reporting improvement in breathing/shortness of breath. Patient reports he is an approximate 40-year pack year smoker. He denies unintentional weight loss and night sweats. Denies personal history of cancer. He reports his father had a history of cancer and believes it may have been pancreatic but is unsure. Denies pain. Denies hemoptysis. Denies neurolo gical deficits. CBC revealed WBC 10.4, hemoglobin 15.5, platelets 223,000. RSV, flu, COVID negative. Anaerobic pleural fluid culture negative. Pleural Gram stain negative. Blood cultures thus far negative. Continues on Zosyn, pulmonology following. Patient is afebrile. SPO2 92% on 4L Review of Systems 10 point ROS is negative except as stated in the HPI Past Medical History Past Medical History: COPD, GERD/Reflux, Hyperlipidemia, Hypertension Additional Past Medical History / Comment(s): COPD, diverticulosis, History of Any Multi-Drug Resistant Organisms: None Reported Past Surgical History: Orthopedic Surgery, Tonsillectomy Additional Past Surgical History / Comment(s): right ankle surgery, COLONOSCOPY Past Anesthesia/Blood Transfusion Reactions: No Reported Reaction Past Psychological History: No Psychological Hx Reported Smoking Status: Current every day smoker Past Alcohol Use History: None Reported Additional Past Alcohol Use History / Comment(s): Smoking 1 ppd since age 17, now down to less than 1/2 pack Past Drug Use History: None Reported - Past Family History Mother Family Medical History: Coronary Artery Disease (CAD) Father Family Medical History: Cancer Additional Family Medical History / Comment(s): lymphoma Medications and Allergies Home Medications Medication Instructions Recorded Confirmed Type Bisoprolol-Hctz 5-6.25 mg [Ziac 1 tab PO DAILY 08/24/16 03/07/23 History 5-6.25 MG] Simvastatin [Zocor] 40 mg PO HS 08/24/16 03/07/23 History Ubidecarenone [Co Q-10] 10 mg PO DAILY@1200 08/24/16 03/07/23 History amLODIPine BESYLATE/BENAZEPRIL 1 cap PO DAILY 08/24/16 03/07/23 History [amLODIPine BESYLATE/BENAZEPRIL 10-20 MG] Fluticasone/Umeclidin/Vilanter 1 puff INHALATION RT-DAILY 07/25/20 03/07/23 History [Trelegy Ellipta 100-62.5-25] Omeprazole Magnesium [PriLOSEC OTC] 20 mg PO BID 07/25/20 03/07/23 History Vit C/E/Zn/Coppr/Lutein/Zeaxan 1 tab PO DAILY@1200 07/25/20 03/07/23 History [Preservision Areds 2 Softgel] Albuterol Inhaler [Ventolin Hfa 1 - 2 puff INHALATION RT-Q6H PRN 03/07/23 03/07/23 History Inhaler] Albuterol Nebulized [Ventolin 2.5 mg INHALATION RT-TID 03/07/23 03/07/23 History Nebulized] Fluocinonide 0.05% Solution 1 applic TOPICAL HS PRN 03/07/23 03/07/23 History Ketoconazole 2% Shampoo [Nizoral] 1 applic TOPICAL DAILY PRN 03/07/23 03/07/23 History Krill/Om-3/Dha/Epa/Phospho/Ast 1 cap PO DAILY@1200 03/07/23 03/07/23 History [Krill Oil 500 mg Softgel] Turmeric Root Extract [Turmeric] 500 mg PO HS 03/07/23 03/07/23 History Amoxic-Pot Clav 875-125Mg 1 tab PO Q12HR 5 Days #10 tab 03/14/23 Rx [Augmentin 875-125] lisinopriL [Zestril] 20 mg PO DAILY 30 Days #30 tab 03/14/23 Rx Allergies Allergy/AdvReac Type Severity Reaction Status Date / Time No Known Allergies Allergy Verified 03/07/23 15:20 Physical Exam Vitals: Vital Signs Temp Pulse Pulse Pulse Pulse Pulse Pulse 03/14/23 20:57 84 03/14/23 20:44 90 03/14/23 20:29 91 03/14/23 19:46 98 F 89 03/14/23 15:17 88 03/14/23 15:06 88 03/14/23 12:58 98.2 F 105 H 03/14/23 11:41 96 03/14/23 11:26 92 03/14/23 11:03 96 109 H 98 111 H 03/14/23 07:13 97.6 F 92 03/14/23 06:55 100 03/14/23 06:45 100 03/14/23 06:44 100 03/14/23 06:33 03/14/23 06:32 96 03/14/23 01:47 97.9 F 94 Resp BP Pulse Ox Pulse Ox Pulse Ox Pulse Ox Pulse Ox 03/14/23 20:57 03/14/23 20:44 03/14/23 20:29 03/14/23 19:46 18 133/80 93 L 03/14/23 15:17 03/14/23 15:06 03/14/23 12:58 16 159/81 95 03/14/23 11:41 03/14/23 11:26 03/14/23 11:03 92 L 90 L 90 L 87 L 03/14/23 07:13 20 121/77 95 03/14/23 06:55 03/14/23 06:45 03/14/23 06:44 03/14/23 06:33 96 03/14/23 06:32 03/14/23 01:47 20 122/73 98 Intake and Output 03/14/23 03/14/23 03/14/23 06:59 14:59 22:59 Other: Voiding Method Urinal # Voids 1 - Constitutional General appearance: average body habitus, no acute distress - EENT Eyes: anicteric sclerae, EOMI ENT: hearing grossly normal - Respiratory Respiratory: left: diminished (CRISELDA), negative: rales, rhonchi, wheezing - Cardiovascular Rhythm: regular Heart sounds: normal: S1, S2 Abnormal Heart Sounds: no systolic murmur, no diastolic murmur, no rub, no S3 Gallop, no S4 Gallop, no click, no other leg Peripheral Edema: bilateral: None - Gastrointestinal General gastrointestinal: no distended, soft, no tenderness - Integumentary Integumentary: no cyanotic, no jaundiced - Neurologic grossly intact - Musculoskeletal Musculoskeletal: strength equal bilaterally - Psychiatric Psychiatric: A&O x's 3, appropriate affect, intact judgment & insight Results CBC & Chem 7: 03/13/23 06:29 03/14/23 16:33 Labs: Abnormal Lab Results - Last 24 Hours (Table) 03/13/23 03/14/23 03/14/23 Range/Units 06:29 07:11 11:43 Sodium (137-145) mmol/L Chloride (98-107) mmol/L Carbon Dioxide 35.2 H (21.6-31.8) mmol/L BUN (9-20) mg/dL Creatinine (0.66-1.25) mg/dL BUN/Creatinine Ratio 30.50 H (12.00-20.00) Ratio Glucose 136 H (70-110) mg/dL POC Glucose (mg/dL) 125 H 143 H (70-110) mg/dL 03/14/23 03/14/23 03/14/23 Range/Units 16:33 17:15 20:12 Sodium 136 L (137-145) mmol/L Chloride 96 L (98-107) mmol/L Carbon Dioxide 39 H (21.6-31.8) mmol/L BUN 25 H (9-20) mg/dL Creatinine 0.62 L (0.66-1.25) mg/dL BUN/Creatinine Ratio (12.00-20.00) Ratio Glucose 108 H (70-110) mg/dL POC Glucose (mg/dL) 119 H 164 H (70-110) mg/dL Microbiology - Last 24 Hours (Table) 03/11/23 08:42 Gram Stain - Preliminary Pleural Fluid Body Fluid Culture - Preliminary Comments: US chest and pathology report reviewed Chest x-ray: report reviewed CT scan - chest: report reviewed Assessment and Plan (1) Community acquired pneumonia Current Visit: Yes Status: Acute Priority: High Code(s): J18.9 - PNEUMONIA, UNSPECIFIED ORGANISM SNOMED Code(s): 599856649 (2) Acute exacerbation of chronic obstructive pulmonary disease Current Visit: Yes Status: Acute Priority: High Code(s): J44.1 - CHRONIC OBSTRUCTIVE PULMONARY DISEASE W (ACUTE) EXACERBATION SNOMED Code(s): 563995372 (3) Adenocarcinoma of lung Current Visit: Yes Status: Acute Priority: High Code(s): C34.90 - MALIGNANT NEOPLASM OF UNSP PART OF UNSP BRONCHUS OR LUNG SNOMED Code(s): 465360980 Plan: Lung adenocarcinoma: -CTA chest revealed no evidence of PE. Loculated left pleural effusion with associated atelectasis and consolidation changes in the left anterior lung. Right upper lung bronchus large airway occlusion with upstream plugging, concerning for obstructing mass, with moderate to severe emphysema changes.. CT chest showed improving complex consolidation anterior lateral left upper lung field, with adjacent blebs and bulla present and soft tissue density measuring 1.2 cm and additional soft tissue along the anterior lateral left upper lung field. Ultrasound of chest revealed left pleural effusion pocket size measuring 6.83 cm. Patient underwent left-sided thoracentesis with pulmonology and 900 cc was removed. Cytology revealed metastatic adenocarcinoma consistent with primary pulmonary origin. -Hx of 40 pack years smoker. Denies constitutional sx. No personal cancer hx, father has hx of cancer, unknown if pancreatic -Will obtain PDL-1, MSI, TMB and NGS on cytology. If sample is not sufficient for PDL-1 will likely need to pursue biopsy. Other testing can be obtained on liquid biopsy if not obtainable from cytology. -CT AP and MRI brain ordered for staging. Will obtain bone scan outpt, as dye is on back order and they will not have in hospital till Friday per nursing -Discussed results with pt and concerns for malignancy. He is agreeable with further workup/testing. F/u will be scheduled upon discharge to discuss results and treatment options Pneumonia/COPD exacerbation: -Pulmonology following and managing -Continues on supportive care and abx treatment Attests: I have seen and examined pt, performed H&P, developed impression and plan of care. Discussed with dictator. Agree with documentation, dictated as a scribe
[2023-03-15] MEDS: methylPREDNISolone SOD SUCCI 125 MG/2 ML VIAL IV SCH ×3 (01:53→13:21)
[2023-03-15] MEDS: PIPERACILLIN-TAZOBACTAM 3.375 GM in SODIUM CHLORIDE 0.9% 100 ML IVPB SCH ×2 (01:58→09:07)
[2023-03-15] MEDS: SODIUM CHLORIDE 0.9% 1,000 ML IV SCH (05:45)
[2023-03-15 07:00] LABS: Glucose,Whole Blood 114 mg/dL (70-110)
[2023-03-15] MEDS: INSULIN ASPART (NovoLOG) 100 UNIT/ML VIAL SQ SCH ×2 (08:07→12:41)
[2023-03-15] MEDS: amLODIPine 10 MG TAB PO SCH (09:06)
[2023-03-15] MEDS: BISOPROLOL-HCTZ 5-6.25 MG 1 EACH TAB PO SCH (09:06)
[2023-03-15] MEDS: lisinopriL 20 MG TAB PO SCH (09:06)
[2023-03-15] MEDS: PANTOPRAZOLE 40 MG TABLET PO SCH (09:06)
[2023-03-15] MEDS: BUDESONIDE 1 MG/2 ML NEBU INHALATION SCH (09:54)
[2023-03-15] MEDS: FORMOTEROL FUMARATE 20 MCG/2 ML NEBU INHALATION SCH (09:54)
[2023-03-15] MEDS: IPRATROPIUM-ALBUTEROL 3 ML NEB INHALATION SCH ×2 (09:54→12:50)
--- NOTE | 2023-03-15 11:29 | P.PN ---
Subjective Progress Note Date: 03/14/23 this 73 y/o male well known to myself and partner has known COPd and ongoing smoking. He reports increased SOB starting that brought him to the ER. he was found to have a left lung Pneumonia, left pleural effusion, right upper lung airway occlusion and mucous plugging. He has remained in the hospital since then for treatmetn today, 03/10/2023, he has some dyspnea, no chest pain or pressure. No nausea or vomiting.SIo2 90% 4l/m via nasal cannula. borderline tachy, sugars stable 03/11/2023 Maintained on nebulized bronchodilators, IV steroids, Zosyn, azithromycin . Pro-calcitonin 0.06, afebrile, normal WBC.Chest CT reported loculated left-sided pleural effusion with associated atelectasis, new anterior left consolidation changes, right upper lung bronchus large airway occlusion with upstream p lugging, findings concerning for obstructing mass. Findings new from prior CT. Moderate to severe emphysema changes. Ultrasound of the chest report. Left pleural effusion pocket 6.83 cm/marked for thoracentesis. Pre-thoracentesis, requiring 5 L nasal cannula to maintain O2 sats in the low 90s.Left thoracentesis performed earlier this morning, with 900 MLS of turbid colored drainage. Tolerated procedure well. Chest x-ray postprocedure reporting no evidence of pneumothorax. Postprocedure, decreased oxygen requirements, maintaining O2 sats in the 90s on 3 L nasal cannula. Denies chest pain, palpitations. 03/12/2023 status post left thoracentesis yesterday , cultures/cytology pending. repeat chest x-ray this morning reporting persistent left lung consolidation. continues on nebulized bronchodilators, IV steroids, Zosyn, maintaining O2 sats in the 90s on 4 L nasal cannula. 03/13/23 reports he ambulated in hallway with PT. Continues to require 4 L nasal cannula to maintain O2 sats in the 90s .Maintained on IV Zosyn, nebulized bronchodilators and IV steroids. Blood sugars controlled.Currently sitting up in chair, reports breathing easier. Pleural cytology pending, preliminary pleural fluid cultures reporting no growth after 48 hours. Positive bowel movement. Denies chest pain, palpitations. 03/14/2023:Patient is feeling much better. Oxygen evaluation shows a pulse ox of 87% on room, air with ambulation, 90% at rest.His plural effusion was found to have malignant cells in it. This was discussed with him and the credit assessment analyst. At this time he will be discharged home, he will follow up with family, medicine, pulmonology, and oncology next week. He was originally admited for pneumonia and acute COPD, pleural effucion, and respirtatory failure Addendum: His discharge was held as oncology wanted some testing before he left. MRI of the brain, CT abdomen and pelvis are pending. A PET scan is planned for outpatient. Objective - Vital Signs Vital signs: Vital Signs Temp 97.7 F 03/15/23 07:01 Pulse 90 03/15/23 10:15 Resp 16 03/15/23 07:01 BP 124/79 03/15/23 07:01 Pulse Ox 93 L 03/15/23 09:54 FiO2 Intake & Output 03/14/23 03/15/23 03/15/23 18:59 06:59 18:59 Intake Total 0 Output Total 300 Balance 0 -300 Intake: Oral 0 Output: Urine 300 Other: Voiding Method Urinal Urinal # Voids 1 0 1 # Bowel Movements 1 - Exam General: The patient is awake and alert, in no distress, and does not appear acutely ill. Breathing is much easier Neck: The neck is supple, there is no thyromegaly, lymphadenopathy, tenderness or JVD. Cardiovascular: S1S2 is normal, There is a regular rate and rhythm. No murmur, rub or gallop is appreciated. Respiratory: Lungs are diminished bilaterally, breath sounds are equal. There is no active wheezes rales this time Gastrointestinal: Soft, non-distended, non-tender abdomen without masses or organomegaly noted. There is no rebound or guarding present. Bowel sounds are unremarkable. Musculoskeletal: Normal ROM, no tenderness, There is no pedal edema. There is no calf tenderness or swelling. No cords were appreciated. Neurological: CN II-XII intact, there are no obvious motor or sensory deficits. Coordination appears grossly intact. Speech is normal. Skin: Skin is warm and dry and no rashes or lesions are noted. - Labs CBC & Chem 7: 03/13/23 06:29 03/14/23 16:33 Labs: Abnormal Lab Results - Last 24 Hours (Table) 03/14/23 03/14/23 03/14/23 Range/Units 11:43 16:33 17:15 Sodium 136 L (137-145) mmol/L Chloride 96 L (98-107) mmol/L Carbon Dioxide 39 H (22-30) mmol/L BUN 25 H (9-20) mg/dL Creatinine 0.62 L (0.66-1.25) mg/dL Glucose 108 H (74-99) mg/dL POC Glucose (mg/dL) 143 H 119 H (70-110) mg/dL 03/14/23 03/15/23 Range/Units 20:12 06:59 Sodium (137-145) mmol/L Chloride (98-107) mmol/L Carbon Dioxide (22-30) mmol/L BUN (9-20) mg/dL Creatinine (0.66-1.25) mg/dL Glucose (74-99) mg/dL POC Glucose (mg/dL) 164 H 114 H (70-110) mg/dL Microbiology - Last 24 Hours (Table) 03/11/23 08:42 Gram Stain - Final Pleural Fluid Body Fluid Culture - Final Assessment and Plan (1) Adenocarcinoma of lung Current Visit: Yes Status: Acute Priority: High Code(s): C34.90 - MALIGNANT NEOPLASM OF UNSP PART OF UNSP BRONCHUS OR LUNG SNOMED Code(s): 828520650 (2) Acute and chronic respiratory failure ([id number]) Current Visit: Yes Status: Acute Code(s): J96.20 - ACUTE AND CHR RESP FAILURE, UNSP W HYPOXIA OR HYPERCAPNIA SNOMED Code(s): 45079031 (3) Essential (primary) hypertension Current Visit: Yes Status: Acute Code(s): I10 - ESSENTIAL (PRIMARY) HYPERTENSION SNOMED Code(s): 87001766 (4) Mixed hyperlipidemia Current Visit: Yes Status: Acute Code(s): E78.2 - MIXED HYPERLIPIDEMIA SNOMED Code(s): 431469065 (5) Acute exacerbation of chronic obstructive pulmonary disease Current Visit: Yes Status: Acute Priority: High Code(s): J44.1 - CHRONIC OBSTRUCTIVE PULMONARY DISEASE W (ACUTE) EXACERBATION SNOMED Code(s): 287451913 (6) Hypoxia Current Visit: Yes Status: Acute Code(s): R09.02 - HYPOXEMIA SNOMED Code(s): 666833543 (7) Lung mass Current Visit: Yes Status: Acute Code(s): R91.8 - OTHER NONSPECIFIC ABNORMAL FINDING OF LUNG FIELD SNOMED Code(s): 761927141 (8) Pleural effusion, left Current Visit: Yes Status: Acute Code(s): J90 - PLEURAL EFFUSION, NOT ELSEWHERE CLASSIFIED SNOMED Code(s): 07726851 (9) Tobacco dependence Current Visit: Yes Status: Acute Code(s): F17.200 - NICOTINE DEPENDENCE, UNSPECIFIED, UNCOMPLICATED SNOMED Code(s): 36231548 Plan: Weight on upcoming CT abdomen and pelvis, MRI brain. Expect discharge on 03/15/2023.
--- NOTE | 2023-03-15 11:30 | P.DS ---
Providers Date of admission: 03/07/23 16:25 Expected date of discharge: 03/15/23 Attending physician: Antoine Nichols Consults: 03/07/23 16:24 Consult Physician Routine Consulting Provider: Braxton Eason Consult Reason/Comments: pna Do you want consulting provider notified?: Yes 03/13/23 17:11 Consult Physician Routine Consulting Provider: Ranjit Landers Consult Reason/Comments: metastatic lung cancer Do you want consulting provider notified?: Yes Primary care physician: Antoine Nichols - Discharge Diagnosis(es) (1) Adenocarcinoma of lung Current Visit: Yes Status: Acute Priority: High (2) Acute and chronic respiratory failure ([id number]) Current Visit: Yes Status: Acute (3) Essential (primary) hypertension Current Visit: Yes Status: Acute (4) Mixed hyperlipidemia Current Visit: Yes Status: Acute (5) Acute exacerbation of chronic obstructive pulmonary disease Current Visit: Yes Status: Acute Priority: High (6) Hypoxia Current Visit: Yes Status: Acute (7) Lung mass Current Visit: Yes Status: Acute (8) Pleural effusion, left Current Visit: Yes Status: Acute (9) Tobacco dependence Current Visit: Yes Status: Acute Hospital Course: this 73 y/o male well known to myself and partner has known COPd and ongoing smoking. He reports increased SOB starting that brought him to the ER. he was found to have a left lung Pneumonia, left pleural effusion, right upper lung airway occlusion and mucous plugging. He has remained in the hospital since then for treatmetn today, 03/10/2023, he has some dyspnea, no chest pain or pressure. No nausea or vomiting.SIo2 90% 4l/m via nasal cannula. borderline tachy, sugars stable 03/11/2023 Maintained on nebulized bronchodilators, IV steroids, Zosyn, azithromycin . Pro-calcitonin 0.06, afebrile, normal WBC.Chest CT reported loculated left-sided pleural effusion with associated atelectasis, new anterior left consolidation changes, right upper lung bronchus large airway occlusion with upstream plugging, findings concerning for obstructing mass. Findings new from prior CT. Moderate to severe emphysema changes. Ultrasound of the chest report. Left pleural effusion pocket 6.83 cm/marked for thoracentesis. Pre-thoracentesis, requiring 5 L nasal cannula to maintain O2 sats in the low 90s.Left thoracentesis performed earlier this morning, with 900 MLS of turbid colored drainage. Tolerated procedure well. Chest x-ray postprocedure reporting no evidence of pneumothorax. Postprocedure, decreased oxygen requirements, maint aining O2 sats in the 90s on 3 L nasal cannula. Denies chest pain, palpitations. 03/12/2023 status post left thoracentesis yesterday , cultures/cytology pending. repeat chest x-ray this morning reporting persistent left lung consolidation. continues on nebulized bronchodilators, IV steroids, Zosyn, maintaining O2 sats in the 90s on 4 L nasal cannula. 03/13/23 reports he ambulated in hallway with PT. Continues to require 4 L nasal cannula to maintain O2 sats in the 90s .Maintained on IV Zosyn, nebulized bronchodilators and IV steroids. Blood sugars controlled.Currently sitting up in chair, reports breathing easier. Pleural cytology pending, preliminary pleural fluid cultures reporting no growth after 48 hours. Positive bowel movement. Denies chest pain, palpitations. 03/14/2023:Patient is feeling much better. Oxygen evaluation shows a pulse ox of 87% on room, air with ambulation, 90% at rest.His plural effusion was found to have malignant cells in it. This was discussed with him and the rotary cutter feeder. At this time he will be discharged home, he will follow up with family, medicine, pulmonology, and oncology next week. He was originally admited for pneumonia and acute COPD, pleural effucion, and respirtatory failure Addendum: His discharge was held as oncology wanted some testing before he left. MRI of the brain, CT abdomen and pelvis are pending. A PET scan is planned for outpatient. 03/15/2023: MRI of the brain and CT abdomen and pelvis failed to reveal any metastatic disease. He'll be discharged to home with plan to PET scan and follow-up with oncology, pulmonology, in my office Patient Condition at Discharge: Fair Plan - Discharge Summary New Discharge Prescriptions: New Amoxic-Pot Clav 875-125Mg [Augmentin 875-125] 1 tab PO Q12HR 5 Days #10 tab lisinopriL [Zestril] 20 mg PO DAILY 30 Days #30 tab Continue Simvastatin [Zocor] 40 mg PO HS Bisoprolol-Hctz 5-6.25 mg [Ziac 5-6.25 MG] 1 tab PO DAILY amLODIPine BESYLATE/BENAZEPRIL [amLODIPine BESYLATE/BENAZEPRIL 10-20 MG] 1 cap PO DAILY Ubidecarenone [Co Q-10] 10 mg PO DAILY@1200 Fluticasone/Umeclidin/Vilanter [Trelegy Ellipta 100-62.5-25] 1 puff INHALATION RT-DAILY Vit C/E/Zn/Coppr/Lutein/Zeaxan [Preservision Areds 2 Softgel] 1 tab PO DAILY@1200 Omeprazole Magnesium [PriLOSEC OTC] 20 mg PO BID Ketoconazole 2% Shampoo [Nizoral] 1 applic TOPICAL DAILY PRN PRN Reason: FLARE UPS Fluocinonide 0.05% Solution 1 applic TOPICAL HS PRN PRN Reason: FLARE UPS Albuterol Nebulized [Ventolin Nebulized] 2.5 mg INHALATION RT-TID Albuterol Inhaler [Ventolin Hfa Inhaler] 1 - 2 puff INHALATION RT-Q6H PRN PRN Reason: Shortness Of Breath Turmeric Root Extract [Turmeric] 500 mg PO HS Krill/Om-3/Dha/Epa/Phospho/Ast [Krill Oil 500 mg Softgel] 1 cap PO DAILY@1200 Discharge Medication List Bisoprolol-Hctz 5-6.25 mg [Ziac 5-6.25 MG] 1 tab PO DAILY 08/24/16 [History] Simvastatin [Zocor] 40 mg PO HS 08/24/16 [History] Ubidecarenone [Co Q-10] 10 mg PO DAILY@1200 08/24/16 [History] amLODIPine BESYLATE/BENAZEPRIL [amLODIPine BESYLATE/BENAZEPRIL 10-20 MG] 1 cap PO DAILY 08/24/16 [History] Fluticasone/Umeclidin/Vilanter [Trelegy Ellipta 100-62.5-25] 1 puff INHALATION RT-DAILY 07/25/20 [History] Omeprazole Magnesium [PriLOSEC OTC] 20 mg PO BID 07/25/20 [History] Vit C/E/Zn/Coppr/Lutein/Zeaxan [Preservision Areds 2 Softgel] 1 tab PO DAILY@1200 07/25/20 [History] Albuterol Inhaler [Ventolin Hfa Inhaler] 1 - 2 puff INHALATION RT-Q6H PRN 03/07/23 [History] Albuterol Nebulized [Ventolin Nebulized] 2.5 mg INHALATION RT-TID 03/07/23 [History] Fluocinonide 0.05% Solution 1 applic TOPICAL HS PRN 03/07/23 [History] Ketoconazole 2% Shampoo [Nizoral] 1 applic TOPICAL DAILY PRN 03/07/23 [History] Krill/Om-3/Dha/Epa/Phospho/Ast [Krill Oil 500 mg Softgel] 1 cap PO DAILY@1200 03/07/23 [History] Turmeric Root Extract [Turmeric] 500 mg PO HS 03/07/23 [History] Amoxic-Pot Clav 875-125Mg [Augmentin 875-125] 1 tab PO Q12HR 5 Days #10 tab 03/14/23 [Rx] lisinopriL [Zestril] 20 mg PO DAILY 30 Days #30 tab 03/14/23 [Rx] Follow up Appointment(s)/Referral(s): Ranjit Landers [STAFF PHYSICIAN] - 1 Week (The office will call with a follow up appointment. ) [facility] [NON-STAFF] - 1 Week Antoine Nichols MD [Primary Care Provider] - 03/20/23 2:30 pm Rommel Nguyen MD [STAFF PHYSICIAN] - 04/07/23 8:30 am Patient Instructions/Handouts: Amoxicillin/Clavulanate Potassium (By mouth), How to Stop Smoking (DC), Lung Cancer (DC), Using Oxygen at Home (DC), Bacterial Pneumonia (DC) Activity/Diet/Wound Care/Special Instructions: Dr. Landers with oncology will have his office set up outpatient testing next week. Discharge Disposition: HOME SELF-CARE
[2023-03-15 11:53] LABS: Glucose,Whole Blood 225 mg/dL (70-110)
[2023-03-15] MEDS: VIT A,C & E-LUTEIN-MINERALS 1 EACH TAB PO SCH (12:41)
[2023-03-15 13:34] VITALS: BP 137/83; PULSE 83; RESP 20; TEMP 98.9
--- NOTE | 2023-03-15 14:26 | P.PN ---
Subjective Progress Note Date: 03/15/23 This is 73-year-old male patient with a known history of hypertension, hyperlipidemia, chronic and ongoing tobacco dependence of greater than 50 years, chronic obstructive pulmonary disease with an FEV1 value. 7% of predicted. He is not oxygen dependent. He follows with Dr. Nguyen in our office. He did have a computed tomography scan in June 2022 that revealed a new right apical nodule measuring 10 x 7 mm that was being followed in the outpatient setting. He presented here to the emergency room yesterday with increasing shortness of breath, cough and congestion. No fever or chills. No nausea or vomiting. No chest pain. His saturations were as low as 84% on room air. He's currently on 4 L nasal cannula. Chest x-ray shows multifocal pneumonia in the left lung. Underlying neoplasm not excluded. CT angiogram ruled out pulmonary embolism. There is a loculated left pleural effusion with associated atelectasis. Consolidation changes and left anterior lung are new compared to June 2022. Right upper lung bronchus with the large airway occlusion with upstream plugging. Findings concerning for obstructing mass. Findings are new compared to June 2022. Moderate to severe emphysematous changes. White count 11.4. Hemoglobin 15.6. Platelets 228. Sodium 142. Potassium 4.6. Bicarb 27. BUN 16. Creatinine 0.9. Glucose 132. Influenza screen negative. RSV screen negative. COVID-19 screen negative. The patient is seen today in consultation on the regular medical floor. He is currently sitting up in bed. Awake and alert in no acute distress. He is to submit with exertion. Dyspneic with minimal conversation. He is maintaining O2 saturation in the 90s on 4 L/m per nasal cannula. Still somewhat bronchospastic and wheezing. The patient is seen today 03/09/2023 in follow-up on the regular medical floor. He is currently sitting up in bed. Given a breathing treatment. Still with dyspnea on exertion. Dyspnea on conversation. A bit better today compared to yesterday. Not quite back to his baseline. He is maintaining O2 saturations in the 90s on 4 L/m per nasal cannula. Normal saline at 75 ML's per hour. Blood glucose 133. He is continued on DuoNeb inhalations, Pulmicort and Perforomist inhalations, Solu-Medrol. On today's evaluation of a 03/10 2023, the patient still having some difficulties in breathing. I reviewed the CAT scan of the chest and there is a loculated left-sided pleural effusion along with left basilar consolidation. Presentation could be related to an underlying parapneumonic effusion which is somewhat located at this point in time. The patient remains on bronchodilators. The patient remains on IV Solu-Medrol. Antibiotic coverage with IV Zosyn. Noted the patient's baseline pro-calcitonin level was at 0.06. The white cell count is not elevated and the patient's echoes 11.3 with a hemoglobin of 15.6. The patient is currently on 4 L of O2 nasal cannula with a pulse ox of 90%. The patient continues to have shortness of breath. The patient advanced COPD with diffuse emphysematous changes bilaterally. I reviewed the CTA of the chest and there is no evidence of any pulmonary embolism. Nevertheless, as mentioned, there is a lot of left-sided pleural effusion along with left basilar atelectas is, severe underlying baseline emphysema in addition to areas of patchy consolidation mainly involving the left lung. 03/11/2023, I'm seeing the patient for a follow-up. As mentioned yesterday, the patient had a pneumonia with a parapneumonic effusion on the left, and an ultrasound of the chest was done yesterday and it showed a 6 cm^ in the left lung. Based on that, I performed a bedside thoracentesis on this patient and a total of 900 mL of pleural fluid was aspirated from the left lung. The chest x- rays to follow. Meanwhile, the patient remains on IV Zosyn and Zithromax. He remains on bronchodilators. He remains on steroids. His blood work from today is still pending. No other significant events overnight. The patient is on 5 L of oxygen by nasal cannula with a pulse ox of 91%. As such, the thoracentesis was completed successfully and the patient is awaiting a follow-up chest x-ray. 03/12/2023, the patient is feeling slightly improved compared to yesterday. I performed a thoracentesis on the left lung and a total of 900 mL's of pleural fluid was aspirated. In follow-up, the patient is still on oxygen at 4 L of nasal cannula. The patient is afebrile. No new labs are available from today. The pleural fluid was an exudate and the cultures from the pleural fluid is still pending for now. Fluid cytology is also pending. The repeat chest x-ray still showing persistent left lung consolidation. His heart to say if there is any other residual pockets of pleural fluid. I think the patient deserves another follow-up CAT scan of the chest. Meanwhile, the patient is still on IV antibiotics and the patient is currently on IV Zosyn. The patient is on bronchodilators. The patient on IV Solu-Medrol 60 mg every 6 hours. IV fluids are running at 75 mL an hour. 03/13/2023, the patient has no new complaints. A repeat CAT scan of the chest was done yesterday, and the CAT scan showed improvement in the complex consolidation and the anterior and lateral left upper lung field. Is also pulmonary left-sided pleural effusion. The patient is currently was re commended antibiotics. The patient remains on IV Zosyn. The visit at 10.4 with a hemoglobin of 15.5. No fever. He is on 4 L of oxygen by nasal cannula with pulse ox of 90%. Is using the incentive spirometer. He remains on bronchodilators. He remains on steroids. Noted the patient underwent a thoracentesis and total of 900 mL of fluid was aspirated from the left lung. Unfortunately, the fluid was an exudate in the fluid cytology was consistent with metastatic adenocarcinoma consistent with lung primary. Repeat CAT scan of the chest shows improvement in size of left-sided pleural effusion 03/14/2023, the patient is aware of his diagnosis of malignant left-sided pleural effusion with adenocarcinoma. He is doing well and no specific complaints. He is considered being discharged home after being seen by oncology. He will need outpatient workup for malignancy including a PET/CT. The patient otherwise is stable on 4 L of O2 nasal cannula. No new labs from today. 03/15/2023, clinically unchanged and the patient is on 40 to O2 nasal cannula. He was supposed to get discharged yesterday and his discharge was held as oncology wanted some testing before he left. MRI of the brain, CT abdomen and pelvis are pending. A PET scan is planned for outpatient. No new labs from to day computed tomography scan of the abdomen and pelvis showed no evidence of any lymphadenopathy, bilateral nonobstructive renal calculi, lung appearance is similar, infrarenal aortic aneurysm measuring 3.8 cm size is at the diverticulosis Objective - Vital Signs Vital signs: Vital Signs Temp 98.9 F 03/15/23 13:00 Pulse 83 03/15/23 13:00 Resp 20 03/15/23 13:00 BP 137/83 03/15/23 13:00 Pulse Ox 90 L 03/15/23 13:00 FiO2 Intake & Output 03/14/23 03/15/23 03/15/23 18:59 06:59 18:59 Intake Total 0 Output Total 300 Balance 0 -300 Intake: Oral 0 Output: Urine 300 Other: Voiding Method Urinal Urinal Urinal # Voids 1 0 1 # Bowel Movements 1 - Labs CBC & Chem 7: 03/13/23 06:29 03/14/23 16:33 Labs: Abnormal Lab Results - Last 24 Hours (Table) 03/14/23 03/14/23 03/14/23 Range/Units 16:33 17:15 20:12 Sodium 136 L (137-145) mmol/L Chloride 96 L (98-107) mmol/L Carbon Dioxide 39 H (22-30) mmol/L BUN 25 H (9-20) mg/dL Creatinine 0.62 L (0.66-1.25) mg/dL Glucose 108 H (74-99) mg/dL POC Glucose (mg/dL) 119 H 164 H (70-110) mg/dL 03/15/23 03/15/23 Range/Units 06:59 11:52 Sodium (137-145) mmol/L Chloride (98-107) mmol/L Carbon Dioxide (22-30) mmol/L BUN (9-20) mg/dL Creatinine (0.66-1.25) mg/dL Glucose (74-99) mg/dL POC Glucose (mg/dL) 114 H 225 H (70-110) mg/dL Microbiology - Last 24 Hours (Table) 03/11/23 08:42 Gram Stain - Final Pleural Fluid Body Fluid Culture - Final Assessment and Plan Plan: Acute hypoxemic respiratory failure secondary to an acute exacerbation of chronic obstructive pulmonary disease complicated by postobstructive pneumonia. CT angiogram ruled out pulmonary embolism. There is a loculated left pleural effusion with associated atelectasis. Consolidation changes and left anterior lung are new compared to June 2022. Findings are new compared to June 2022. Moderate to severe emphysematous changes. This is consistent with pneumonia and the patient also had a complex left-sided pleural effusion that was drained, fluid is malignant consistent with adenocarcinoma of a lung primary Metastatic adenocarcinoma with malignant left-sided pleural effusion postthoracentesis. Fluid cytology was positive for malignancy/adenocarcinoma Loculated pleural effusion , postthoracentesis and the fluid is malignant History of right apical nodule measuring 10.7 mm in June 2022 Chronic obstructive pulmonary disease his FEV1 value 57% of predicted Chronic and ongoing tobacco dependence greater than 50 years Hypertension Hyperlipidemia History of gastroesophageal reflux disease Plan: CAT scan of the abdomen was noted Consult with medical oncology, appreciated Diagnosis was discussed Follow-up CAT scan results are favorable and there is improvement in the left lung consolidation Improvement left-sided pleural effusion, ESSENTIALLY malignant We'll need an outpatient PET/CT Oxygenation is stable and patient is currently on 4 L of O2 nasal cannula The patient can be discharged home on a course of oral antibiotics and the patient will be given oral Augmentin Continue bronchodilators, steroids in the form of prednisone burst taper Titrate the FiO2 as tolerated, he has home O2 Discharge home today
== END 2023-03-15 15:36 | disposition home or self-care (01) | DRG 180 ==
LOC: EC 13:37 → 5NMEDONC 16:25
PROVIDERS: ADMIT Family Medicine; ATTEND Family Medicine
PROC: 0W9B3ZZ Drainage of Left Pleural Cavity, Percutaneous Approach (ICD-10-PCS; principal; 2023-03-11)
DX: C34.90 Malignant neoplasm of unspecified part of unspecified bronchus or lung (principal); J18.9 Pneumonia, unspecified organism; J96.21 Acute and chronic respiratory failure with hypoxia; J91.0 Malignant pleural effusion; J21.9 Acute bronchiolitis, unspecified; K57.32 Diverticulitis of large intestine without perforation or abscess without bleeding; J98.11 Atelectasis; J43.9 Emphysema, unspecified; I70.0 Atherosclerosis of aorta; I10 Essential (primary) hypertension; E78.2 Mixed hyperlipidemia; K21.9 Gastro-esophageal reflux disease without esophagitis; F17.210 Nicotine dependence, cigarettes, uncomplicated; S29.9XXA Unspecified injury of thorax, initial encounter; J98.4 Other disorders of lung; Z20.822 Contact with and (suspected) exposure to COVID-19; Z79.899 Other long term (current) drug therapy; Z79.51 Long term (current) use of inhaled steroids
CPT/HCPCS: 36415; 70553; 71045; 71046; 71250; 71275; 74177; 76604; 80048; 80053; 82150; 82465; 82945; 83036; 83605; 83615; 83735; 83880; 84100; 84145; 84155; 84157; 84484; 85025; 85610; 85730; 87040; 87070; 87075; 87205; 87636; 88108; 88305; 88341; 88342; 89050; 93005; 94640; 94760; 96365; 96375; 99291

== ENCOUNTER 2023-03-23 16:53 | Inpatient (IN) | payer MEDICARE, OTHER ==
[2023-03-23] MEDS ORDERED: IPRATROPIUM-ALBUTEROL 3 ML NEB INHALATION STA ×3 (17:21→18:01)
[2023-03-23] MEDS ORDERED: methylPREDNISolone SOD SUCCI 125 MG/2 ML VIAL IV STA (17:21)
[2023-03-23] MEDS ORDERED: MAGNESIUM SULFATE-D5W PMX 1 GM in DEXTROSE/WATER 1 100ML.BAG IVPB STA (17:21)
[2023-03-23] MEDS ORDERED: SODIUM CHLORIDE 0.9% 500 ML 500 ML IV STA (17:21)
[2023-03-23 18:34] LABS: Basophils # (A) 0.1 k/uL (0-0.2); Basophils % (A) 1 %; Eosinophils # (A) 0.1 k/uL (0-0.7); Eosinophils % (A) 1 %; HCT 45.4 % (39.0-53.0); HGB 14.7 gm/dL (13.0-17.5); Lymphocytes # (A) 0.7 k/uL (1.0-4.8); Lymphocytes % (A) 4 %; MCH 29.5 pg (25.0-35.0); MCHC 32.3 g/dL (31.0-37.0); MCV 91.2 fL (80.0-100.0); Mean Platelet Volume 8.8; Monocytes # (A) 0.9 k/uL (0-1.0); Monocytes % (A) 5 %; Neutrophils # (A) 14.8 k/uL (1.3-7.7); Neutrophils % (A) 88 %; Platelet Count 150 k/uL (150-450); RBC 4.98 m/uL (4.30-5.90); RDW 14.1 % (11.5-15.5); WBC 16.9 k/uL (3.8-10.6)
[2023-03-23 18:50] LABS: INR 1.1 (<1.2); Partial Thromboplastin Time 24.8 sec (22.0-30.0); Prothrombin Time 11.3 sec (9.0-12.0)
[2023-03-23 18:54] LABS: ALT 43 U/L (4-49); AST 37 U/L (17-59); African American GFR (CKD) >90 (>60 ml/min/1.73 sqM); Albumin 2.7 g/dL (3.5-5.0); Alkaline Phosphatase 103 U/L (38-126); Anion Gap 2 mmol/L; Blood Urea Nitrogen 17 mg/dL (9-20); Calcium 8.2 mg/dL (8.4-10.2); Carbon Dioxide 39 mmol/L (22-30); Chloride 92 mmol/L (98-107); Glucose 99 mg/dL (74-99); Magnesium 1.6 mg/dL (1.6-2.3); Non-African American GFR(CKD) >90 (>60 ml/min/1.73 sqM); Potassium 4.1 mmol/L (3.5-5.1); Sodium 133 mmol/L (137-145); Total Bilirubin 0.7 mg/dL (0.2-1.3); Total Protein 5.6 g/dL (6.3-8.2)
[2023-03-23] MEDS ORDERED: AZITHROMYCIN 500 MG in SODIUM CHLORIDE 0.9% 250 ML IVPB STA (19:03)
[2023-03-23] MEDS ORDERED: PNEUMONIA PROTOCOL UTILIZED 1 EACH MISC PO PRN (19:03)
[2023-03-23] MEDS ORDERED: PIPERACILLIN-TAZOBACTAM 3.375 GM in SODIUM CHLORIDE 0.9% 100 ML IVPB STA (19:03)
[2023-03-23] MEDS ORDERED: IPRATROPIUM-ALBUTEROL 3 ML NEB INHALATION PRN (19:03)
[2023-03-23] MEDS ORDERED: SODIUM CHLORIDE 0.9% 1,000 ML IV STA (19:06)
[2023-03-23] MEDS ORDERED: NALOXONE 0.4 MG/ML 1 ML VIAL IV PRN (19:15)
[2023-03-23] MEDS ORDERED: ACETAMINOPHEN TAB 325 MG TAB PO PRN (19:15)
--- NOTE | 2023-03-23 19:16 | XR ---
EXAM: XR Chest, 1 View CLINICAL HISTORY: ITS.REASON XR Reason: dyspnea TECHNIQUE: Frontal view of the chest. COMPARISON: 03/12/23 FINDINGS: Lungs: Interstitial prominence. Airspace opacities left mid and lower lung zones. Mild right basilar opacities. Stable heart size. Vascular congestion is present. Background of emphysema. Pleural space: Small layering left pleural effusion. No significant right pleural effusion. No pneumothorax. Heart: Unremarkable. No cardiomegaly or pulmonary vascular congestion. Bones/joints: No acute osseous findings as visualized. Partially imaged reverse right shoulder arthroplasty. IMPRESSION: 1. Vascular congestion and interstitial prominence, increased from prior, potentially edema. 2. Worsening airspace opacities left mid and lower lung zone, when compared to 03/12/[address], potentially pneumonia. 3. Mild right basilar opacities. Atelectasis is favored. 4. Small layering left pleural effusion.
--- NOTE | 2023-03-23 19:27 | ED ---
General Adult HPI - General Chief complaint: Shortness of Breath Stated complaint: SOB Time Seen by Provider: 03/23/23 17:11 Source: patient, EMS, RN notes reviewed, old records reviewed Mode of arrival: EMS - History of Present Illness Initial comments: Patient is a 73-year-old male who presents emergency Department complaining of dyspnea. He has a history of COPD, recent admission for left-sided pneumonia, pleural effusion, hypertension. Difficulty in breathing has been ongoing since discharge. They're concerned for possible lung cancer as well. He was discharged home on 4 L nasal cannula oxygen however at home was becoming more short of breath and was saturating 80%'s at home per EMS. Brought here for further evaluation. Endorses a cough. Believes it is productive. Denies chest pain, abdominal pain, nausea, vomiting or diarrhea. No other acute complaints a t this time. Presents for further evaluation at this time. Currently is on a nonrebreather. - Related Data Home Medications Medication Instructions Recorded Confirmed Bisoprolol-Hctz 5-6.25 mg [Ziac 1 tab PO DAILY 08/24/16 03/23/23 5-6.25 MG] Simvastatin [Zocor] 40 mg PO HS 08/24/16 03/23/23 Ubidecarenone [Co Q-10] 10 mg PO DAILY@1200 08/24/16 03/23/23 amLODIPine BESYLATE/BENAZEPRIL 1 cap PO DAILY 08/24/16 03/23/23 [amLODIPine BESYLATE/BENAZEPRIL 10-20 MG] Fluticasone/Umeclidin/Vilanter 1 puff INHALATION RT-DAILY 07/25/20 03/23/23 [Trelegy Ellipta 100-62.5-25] Omeprazole Magnesium [PriLOSEC OTC] 20 mg PO BID 07/25/20 03/23/23 Vit C/E/Zn/Coppr/Lutein/Zeaxan 1 tab PO DAILY@1200 07/25/20 03/23/23 [Preservision Areds 2 Softgel] Albuterol Inhaler [Ventolin Hfa 1 - 2 puff INHALATION RT-Q6H PRN 03/07/23 03/23/23 Inhaler] Albuterol Nebulized [Ventolin 2.5 mg INHALATION RT-TID 03/07/23 03/23/23 Nebulized] Fluocinonide 0.05% Solution 1 applic TOPICAL HS PRN 03/07/23 03/23/23 Ketoconazole 2% Shampoo [Nizoral] 1 applic TOPICAL DAILY PRN 03/07/23 03/23/23 Krill/Om-3/Dha/Epa/Phospho/Ast 1 cap PO DAILY@1200 03/07/23 03/23/23 [Krill Oil 500 mg Softgel] Turmeric Root Extract [Turmeric] 500 mg PO HS 03/07/23 03/23/23 ALPRAZolam [Xanax] 0.25 mg PO Q6H PRN 03/23/23 03/23/23 Previous Rx's Medication Instructions Recorded lisinopriL [Zestril] 20 mg PO DAILY 30 Days #30 tab 03/14/23 Allergies Allergy/AdvReac Type Severity Reaction Status Date / Time No Known Allergies Allergy Verified 03/23/23 19:02 Review of Systems ROS Statement: Those systems with pertinent positive or pertinent negative responses have been documented in the HPI. Review of Systems: CONST: Denies fever EYES: Denies blurry vision ENT: Denies nasal congestion C/V: Denies Chest pain RESP: Endorses shortness of breath GI: Denies abdominal pain : Denies dysuria SKIN: Denies rash. MSK: Denies joint pain. NEURO: Denies headache ROS Other: All systems not noted in ROS Statement are negative. Past Medical History Past Medical History: COPD, GERD/Reflux, Hyperlipidemia, Hypertension Additional Past Medical History / Comment(s): COPD, diverticulosis, History of Any Multi-Drug Resistant Organisms: None Reported Past Surgical History: Orthopedic Surgery, Tonsillectomy Additional Past Surgical History / Comment(s): right ankle surgery, COLONOSCOPY Past Anesthesia/Blood Transfusion Reactions: No Reported Reaction Past Psychological History: No Psychological Hx Reported Smoking Status: Former smoker Past Alcohol Use History: None Reported Past Drug Use History: None Reported - Past Family History Mother Family Medical History: Coronary Artery Disease (CAD) Father Family Medical History: Cancer Additional Family Medical History / Comment(s): lymphoma General Exam - General Exam Comments Initial Comments: General: Appears in mild to moderate respiratory distress. HEAD: Normal with no signs of head trauma. EYES: PERRLA, EOMI, conjunctiva normal, no discharge. ENT: Hearing grossly intact, normal oropharynx. RESPIRATORY: Bilateral end expiratory wheeze. Coarse breath sounds over the left lung. Hypoxic on 7 L nasal cannula to 86%. Increased work of breathing. C/V: Regular rate and rhythm. S1 and S2 auscultated, no edema, peripheral pulses 2+ and intact throughout ABD: Abd is soft, nontender, nondistended EXT: Normal range of motion, no obvious deformity SKIN: No rashes or lesions observed on exposed skin. NEURO: Alert and oriented 4. Course Vital Signs 03/23/23 03/23/23 03/23/23 16:54 17:48 18:13 Temperature 98.1 F Pulse Rate 87 110 H 105 H Respiratory 94 H Rate Blood Pressure 124/79 O2 Sat by Pulse 94 L Oximetry Fraction of Inspired Oxygen (FIO2) 03/23/23 03/23/23 03/23/23 18:15 18:21 18:47 Temperature Pulse Rate 102 H 104 H Respiratory 24 Rate Blood Pressure 111/71 O2 Sat by Pulse 93 L Oximetry Fraction of 60 Inspired Oxygen (FIO2) 03/23/23 19:34 Temperature Pulse Rate Respiratory Rate Blood Pressure O2 Sat by Pulse Oximetry Fraction of 60 Inspired Oxygen (FIO2) Medical Decision Making - Medical Decision Making Was pt. sent in by a medical professional or institution (, PA, LANDING WORKER, urgent care, hospital, or [facility]...) When possible be specific @ -No Did you speak to anyone other than the patient for history (EMS, parent, family, police, friend...)? What history was obtained from this source @ -No Did you review nursing and triage notes (agree or disagree)? Why? @ -I reviewed and agree with nursing and triage notes Were old charts reviewed (outside hosp., previous admission, EMS record, old EKG, old radiological studies, urgent care reports/EKG's, [facility] records)? Report findings @ -Old charts reviewed from previous admission February 2023. Differential Diagnosis (chest pain, altered mental status, abdominal pain women, abdominal pain men, vaginal bleeding, weakness, fever, dyspnea, syncope, headache, dizziness, GI bleed, back pain, seizure, CVA, palpatations, mental health, musculoskeletal)? @ -Differential Dyspnea: Coronary syndrome, arrhythmia, tamponade, asthma, COPD, pulmonary embolism, pneumonia, pneumothorax, pulmonary effusion, anaphylaxis, diabetic ketoacidosis, flailed chest, pulmonary contusion, diaphragmatic rupture, anemia, neuromuscular, this is not meant to be an all-inclusive list. EKG interpreted by me (3pts min.). @ -As above X-rays interpreted by me (1pt min.). @ -Chest x-ray reveals left-sided pneumonia and pleural effusion CT interpreted by me (1pt min.). @ -None done U/S interpreted by me (1pt. min.). @ -None done What testing was considered but not performed or refused? (CT, X-rays, U/S, labs)? Why? @ -None What meds were considered but not given or refused? Why? @ -None Did you discuss the management of the patient with other professionals (professionals i.e. , PA, LANDING WORKER, lab, RT, psych nurse, social science instructor, renal technician, teacher, equal employment opportunity officer, watch case polisher)? Give summary @ -Yes, discussed with Dr. Ross who accepted the admission and was in agreement with the plan. Was smoking cessation discussed for >3mins.? @ -No Was critical care preformed (if so, how long)? @ -yes, 40 minutes Were there social determinants of health that impacted care today? How? (Homelessness, low income, unemployed, alcoholism, drug addiction, transportation, low edu. Level, literacy, decrease access to med. care, intermediate, rehab)? @ -No Was there de-escalation of care discussed even if they declined (Discuss DNR or withdrawal of care, Hospice)? DNR status @ -No What co-morbidities impacted this encounter? (DM, HTN, Smoking, COPD, CAD, Cancer, CVA, ARF, Chemo, Hep., AIDS, mental health diagnosis, sleep apnea, morbid obesity)? @ -COPD, chronic hypoxic respiratory failure Was patient admitted / discharged? Hospital course, mention meds given and route, prescriptions, significant lab abnormalities, going to OR and other pertinent info. @ -Based on the patient's presentation and physical exam, presents with hypoxic respiratory failure. Patient was initially placed on BiPAP following 1 br eathing treatment as he was still in the mid to high 80%'s with increased work of breathing. Patient's action [place] appeared well at settings of 12/6 with an FiO2 of 60%. We will obtain infectious labs, as well as cardiopulmonary labs. Patient was in agreement with this plan. History COPD plus or minus infection. Vital signs otherwise within acceptable limits. Chest x-ray shows a left-sided pneumonia which looks a reaccumulated. There is also a left-sided pleural effusion. Labs reveal a leukocytosis of 16.9. Lactic acid within normal limits. Patient is Covid positive. On reevaluation, patient is doing well on BiPAP. I updated the patient. He expressed understanding. We placed on broad-spectrum Zosyn and azithromycin for pneumonia. We will continue treatment of his COPD with breathing treatments as well as IV site and Medrol. Patient was in agreement this plan. I discussed the case with his admitting physician, Dr. Ross who accepted the patient. Pulmonology consulted. Undiagnosed new problem with uncertain prognosis? @ -No Drug Therapy requiring intensive monitoring for toxicity (Heparin, Nitro, Insulin, Cardizem)? @ -No Were any procedures done? @ -No Diagnosis/symptom? @ -Hypoxic respiratory failure on BiPAP secondary to pneumonia and COVID-19 infection Acute, or Chronic, or Acute on Chronic? @ -Acute Uncomplicated (without systemic symptoms) or Complicated (systemic symptoms)? @ -Complicated Side effects of treatment? @ -No Exacerbation, Progression, or Severe Exacerbation? @ -No Poses a threat to life or bodily function? How? (Chest pain, [place], [place], pneumonia, PE, COPD, DKA, ARF, appy, cholecystitis, CVA, Diverticulitis, Homicidal, Suicidal, threat to staff... and all critical care pts) @ -Yes Diagnosis/symptom? @ -COPD, hypoxic respiratory failure Acute, or Chronic, or Acute on Chronic? @ -Acute on chronic Uncomplicated (without systemic symptoms) or Complicated (systemic symptoms)? @ -Complicated Side effects of treatment? @ -none Exacerbation, Progression, or Severe Exacerbation] @ -Exacerbation Poses a threat to life or bodily function? @ -Yes - Lab Data Result diagrams: 03/23/23 18:06 03/23/23 18:06 Lab Results 03/23/23 03/23/23 03/23/23 Range/Units 18:06 18:06 18:06 WBC 16.9 H (3.8-10.6) k/uL RBC 4.98 (4.30-5.90) m/uL Hgb 14.7 (13.0-17.5) gm/dL Hct 45.4 (39.0-53.0) % MCV 91.2 (80.0-100.0) fL MCH 29.5 (25.0-35.0) pg MCHC 32.3 (31.0-37.0) g/dL RDW 14.1 (11.5-15.5) % Plt Count 150 (150-450) k/uL MPV 8.8 Neutrophils % 88 % Lymphocytes % 4 % Monocytes % 5 % Eosinophils % 1 % Basophils % 1 % Neutrophils # 14.8 H (1.3-7.7) k/uL Lymphocytes # 0.7 L (1.0-4.8) k/uL Monocytes # 0.9 (0-1.0) k/uL Eosinophils # 0.1 (0-0.7) k/uL Basophils # 0.1 (0-0.2) k/uL PT 11.3 (9.0-12.0) sec INR 1.1 (<1.2) APTT 24.8 (22.0-30.0) sec Sodium 133 L (137-145) mmol/L Potassium 4.1 (3.5-5.1) mmol/L Chloride 92 L (98-107) mmol/L Carbon Dioxide 39 H (22-30) mmol/L Anion Gap 2 mmol/L BUN 17 (9-20) mg/dL Creatinine 0.43 L (0.66-1.25) mg/dL Est GFR (CKD-EPI)AfAm >90 (>60 ml/min/1.73 sqM) Est GFR (CKD-EPI)NonAf >90 (>60 ml/min/1.73 sqM) Glucose 99 (74-99) mg/dL Plasma Lactic Acid Jun (0.7-2.0) mmol/L Calcium 8.2 L (8.4-10.2) mg/dL Magnesium 1.6 (1.6-2.3) mg/dL Total Bilirubin 0.7 (0.2-1.3) mg/dL AST 37 (17-59) U/L ALT 43 (4-49) U/L Alkaline Phosphatase 103 (38-126) U/L Total Protein 5.6 L (6.3-8.2) g/dL Albumin 2.7 L (3.5-5.0) g/dL Influenza Type A (PCR) (Not Detectd) Influenza Type B (PCR) (Not Detectd) RSV (PCR) (Not Detectd) SARS-CoV-2 (PCR) (Not Detectd) 03/23/23 03/23/23 Range/Units 18:06 18:06 WBC (3.8-10.6) k/uL RBC (4.30-5.90) m/uL Hgb (13.0-17.5) gm/dL Hct (39.0-53.0) % MCV (80.0-100.0) fL MCH (25.0-35.0) pg MCHC (31.0-37.0) g/dL RDW (11.5-15.5) % Plt Count (150-450) k/uL MPV Neutrophils % % Lymphocytes % % Monocytes % % Eosinophils % % Basophils % % Neutrophils # (1.3-7.7) k/uL Lymphocytes # (1.0-4.8) k/uL Monocytes # (0-1.0) k/uL Eosinophils # (0-0.7) k/uL Basophils # (0-0.2) k/uL PT (9.0-12.0) sec INR (<1.2) APTT (22.0-30.0) sec Sodium (137-145) mmol/L Potassium (3.5-5.1) mmol/L Chloride (98-107) mmol/L Carbon Dioxide (22-30) mmol/L Anion Gap mmol/L BUN (9-20) mg/dL Creatinine (0.66-1.25) mg/dL Est GFR (CKD-EPI)AfAm (>60 ml/min/1.73 sqM) Est GFR (CKD-EPI)NonAf (>60 ml/min/1.73 sqM) Glucose (74-99) mg/dL Plasma Lactic Acid Jun 1.0 (0.7-2.0) mmol/L Calcium (8.4-10.2) mg/dL Magnesium (1.6-2.3) mg/dL Total Bilirubin (0.2-1.3) mg/dL AST (17-59) U/L ALT (4-49) U/L Alkaline Phosphatase (38-126) U/L Total Protein (6.3-8.2) g/dL Albumin (3.5-5.0) g/dL Influenza Type A (PCR) Not Detected (Not Detectd) Influenza Type B (PCR) Not Detected (Not Detectd) RSV (PCR) Not Detected (Not Detectd) SARS-CoV-2 (PCR) Detected A (Not Detectd) - EKG Data -: EKG Interpreted by Me EKG Comments: 12-lead Electrocardiogram Interpretation Note EKG was reviewed and interpreted by myself. 12-lead ECG performed at 1706 is interpreted by me as revealing sinus tachycardia at a rate of 110 beats per minute. Indeterminate axis. AL interval is 157 ms, QRS duration is 70 ms, QTc is 407 ms.. There were no ST or T wave abnormalities to suggest myocardial ischemia or injury. R wave progression across the precordium was satisfactory. By my interpretation this EKG is non-diagnostic for acute ischemia. Critical Care Time Critical Care Time: Yes Total Critical Care Time: 40 Disposition Clinical Impression: Pneumonia, COPD (chronic obstructive pulmonary disease), Acute respiratory failure with hypoxia, COVID-19 Disposition: ADMITTED IP TO THIS HOSP Condition: Serious Referrals: Antoine Nichols MD [Primary Care Provider] - 1-2 days Time of Disposition: 19:09
[2023-03-23] MEDS ORDERED: ALBUTEROL HFA INHALER INHALATION PRN (21:11)
[2023-03-23] MEDS: HEPARIN SODIUM,PORCINE 5,000 UNIT/ML 1 ML VIAL SQ SCH (23:20)
[2023-03-23 23:37] LABS: Appearance,Urine Clear (Clear); Bilirubin,Urine Negative (Negative); Blood,Urine Negative (Negative); Color,Urine Yellow; Glucose,Urine (UA) Negative (Negative); Ketones,Urine Trace (Negative); Leukocyte Esterase,Urine Negative (Negative); Nitrite,Urine Negative (Negative); PH, Urine 5.5 (5.0-8.0); Protein,Urine Trace (Negative); Specific Gravity,Urine 1.024 (1.001-1.035); Urobilinogen,Urine <2.0 mg/dL (<2.0)
[2023-03-24] MEDS: ALBUTEROL HFA INHALER INHALATION SCH ×5 (04:14→20:14)
--- NOTE | 2023-03-24 04:17 | P.CNPUL ---
History of Present Illness Consult date: 03/24/23 (n) Requesting physician: Baldomero Zee Reason for consult: pneumonia Chief complaint: Shortness of breath History of present illness: I am seeing this patient in new consultation today 03/24/2023 for suspected left lower lobe pneumonia. Patient is a 73-year-old white male with past medical history significant for recent admission with left lower lobe pneumonia, discharged on March 17. During this admission, the patient was also found to have metastatic adenocarcinoma of the lung based on pleural fluid cytology from a left sided thoracentesis. He also has history of COPD, hypertension, hyperlipidemia, GERD, and ongoing chronic tobacco dependence. Patient is known to have a 10 mm x 7mm right upper lung nodule, originally seen back in June,. His PCP is Dr. Nichols. Chest CT from his most recent admission, March 07, demonstrated a right upper lung bronchus large airway occlusion concerning for obstructive mass. There was also a loculated left pleural effusion with left lung consolidation. The patient was treated with IV antibiotics and discharged home on Augmentin. He was established with an oncologist, and is reportedly going to undergo a PET scan outpatient. Patient returned to the emergency room last night, reporting that he's had ongoing progressively worsening shortness of breath since discharge. He admits an associated nonproductive cough. Denies any fever, chills, myalgias, hemoptysis. Denies any chest pain, palpitations, lower extremity edema, syncope. A chest x-ray done on arrival, showed worsening airspace opacities within the left mid and lower lung zones compared to prior imaging. There was also suspected right lower lung atelectasis, and trace to small bilateral pleural effusions. Patient did test positive for COVID-19, possibly an incidental finding. Patient is currently sitting up in bed, on BiPAP with settings 12/6 and FiO2 of 60%. Appears fairly comfortable. Respiratory rate is high 20s to low 30s and is achieving tidal volumes around 400. CBC on arrival shows leukocytosis with WBC count of 16.9, hemoglobin 14.7, hematocrit 45.4, platelets 150. BMP shows sodium 133, potassium 4.1, chloride 92, serum bicarbonate 39, BUN 17, creatinine 0.43, glucose 99. Currently receiving normal saline at 100 ML's per hour. He was started on empiric Zosyn and azithromycin. Currently afebrile. Also receiving Ventolin HFA, Symbicort inhaler, and IV Decadron. Patient is being monitored closely on the cardiac stepdown unit. Review of Systems REVIEW OF SYSTEMS: CONSTITUTIONAL: Denies any recent significant weight loss or weight gain. EYES: Denies change in vision. EARS, NOSE, MOUTH, THROAT: Denies headaches, denies sore throat. CARDIOVASCULAR: Denies chest pain, palpitations or syncopal episodes. RESPIRATORY: see HPI GASTROINTESTINAL: Denies change in appetite, abdominal pain, nausea and vomiting, or diarrhea GENITOURINARY: Denies hematuria, denies infections. MUSKULOSKELETAL: Denies pain, denies swelling. INTEGUMENTARY: Denies rash, denies eczema. NEUROLOGICAL: Denies recent memory loss, no recent seizure activity. PSYCHIATRIC: Denies anxiety, denies depression. HEMATOLOGIC/LYMPHATIC: Denies anemia, denies enlarged lymph node Past Medical History Past Medical History: COPD, GERD/Reflux, Hyperlipidemia, Hypertension Additional Past Medical History / Comment(s): COPD, diverticulosis, History of Any Multi-Drug Resistant Organisms: None Reported Past Surgical History: Orthopedic Surgery, Tonsillectomy Additional Past Surgical History / Comment(s): right ankle surgery, COLONOSCOPY Past Anesthesia/Blood Transfusion Reactions: No Reported Reaction Past Psychological History: No Psychological Hx Reported Smoking Status: Former smoker Past Alcohol Use History: None Reported Additional Past Alcohol Use History / Comment(s): Smoking 1 ppd since age 17, now quit. Past Drug Use History: None Reported - Past Family History Mother Family Medical History: Coronary Artery Disease (CAD) Father Family Medical History: Cancer Additional Family Medical History / Comment(s): lymphoma Medications and Allergies Home Medications Medication Instructions Recorded Confirmed Type Bisoprolol-Hctz 5-6.25 mg [Ziac 1 tab PO DAILY 08/24/16 03/23/23 History 5-6.25 MG] Simvastatin [Zocor] 40 mg PO HS 08/24/16 03/23/23 History Ubidecarenone [Co Q-10] 10 mg PO DAILY@1200 08/24/16 03/23/23 History amLODIPine BESYLATE/BENAZEPRIL 1 cap PO DAILY 08/24/16 03/23/23 History [amLODIPine BESYLATE/BENAZEPRIL 10-20 MG] Fluticasone/Umeclidin/Vilanter 1 puff INHALATION RT-DAILY 07/25/20 03/23/23 History [[place] Ellipta 100-62.5-25] Omeprazole Magnesium [PriLOSEC OTC] 20 mg PO BID 07/25/20 03/23/23 History Vit C/E/Zn/Coppr/Lutein/Zeaxan 1 tab PO DAILY@1200 07/25/20 03/23/23 History [Preservision Areds 2 Softgel] Albuterol Inhaler [Ventolin Hfa 1 - 2 puff INHALATION RT-Q6H PRN 03/07/23 03/23/23 History Inhaler] Albuterol Nebulized [Ventolin 2.5 mg INHALATION RT-TID 03/07/23 03/23/23 History Nebulized] Fluocinonide 0.05% Solution 1 applic TOPICAL HS PRN 03/07/23 03/23/23 History Ketoconazole 2% Shampoo [Nizoral] 1 applic TOPICAL DAILY PRN 03/07/23 03/23/23 History Krill/Om-3/Dha/Epa/Phospho/Ast 1 cap PO DAILY@1200 03/07/23 03/23/23 History [Krill Oil 500 mg Softgel] Turmeric Root Extract [Turmeric] 500 mg PO HS 03/07/23 03/23/23 History lisinopriL [Zestril] 20 mg PO DAILY 30 Days #30 tab 03/14/23 03/23/23 Rx ALPRAZolam [Xanax] 0.25 mg PO Q6H PRN 03/23/23 03/23/23 History Allergies Allergy/AdvReac Type Severity Reaction Status Date / Time No Known Allergies Allergy Verified 03/23/23 19:02 Physical Exam Vitals: Vital Signs Temp Pulse Pulse Resp BP BP Pulse Ox 03/24/23 01:10 100 40 H 03/24/23 00:57 03/24/23 00:00 98.1 F 100 40 H 97/67 03/23/23 20:16 95 35 H 124/78 92 L 03/23/23 20:08 96 24 111/70 92 L 03/23/23 19:34 03/23/23 18:47 104 H 24 111/71 93 L 03/23/23 18:21 102 H 03/23/23 18:15 03/23/23 18:13 105 H 03/23/23 17:48 110 H 03/23/23 16:54 98.1 F 87 94 H 124/79 94 L FiO2 03/24/23 01:10 03/24/23 00:57 60 03/24/23 00:00 03/23/23 20:16 60 03/23/23 20:08 03/23/23 19:34 60 03/23/23 18:47 03/23/23 18:21 03/23/23 18:15 60 03/23/23 18:13 03/23/23 17:48 03/23/23 16:54 Intake and Output 03/23/23 03/23/23 03/24/23 14:59 22:59 06:59 Other: Voiding Method Urinal Weight 74.389 kg GENERAL EXAM: Alert, 73-year-old white male, fairly comfortable in no apparent distress. HEAD: Normocephalic and atraumatic EYES: Normal reaction of pupils, equal size. NOSE: Clear with pink turbinates. THROAT: No erythema or exudates. NECK: No masses, no JVD. CHEST: No chest wall deformity. LUNGS: Equal air entry with left lower lung inspiratory crackles, on the BiPAP with settings 12/6 and FiO2 60%, without any accessory muscle use or signs of acute distress. CVS: S1 and S2 normal with no audible murmur, regular rhythm. No extra heart sounds ABDOMEN: No hepatosplenomegaly, active bowel sounds, no guarding or rigidity. SPINE: No scoliosis or deformity SKIN: No rashes CENTRAL NERVOUS SYSTEM: No focal deficits, tone is normal in all 4 extremities. EXTREMITIES: There is bilateral lower extremity mildnonpitting edema. No clubbing, or cyanosis. Peripheral pulses are intact. Results - Laboratory Findings CBC and BMP: 03/23/23 18:06 03/23/23 18:06 PT/INR, D-dimer PT 11.3 sec (9.0-12.0) 03/23/23 18:06 INR 1.1 (<1.2) 03/23/23 18:06 Abnormal lab findings: Abnormal Labs 03/23/23 03/23/23 03/23/23 18:06 18:06 18:06 WBC 16.9 H Neutrophils # 14.8 H Lymphocytes # 0.7 L Sodium 133 L Chloride 92 L Carbon Dioxide 39 H Creatinine 0.43 L Calcium 8.2 L Total Protein 5.6 L Albumin 2.7 L Urine Protein Urine Ketones SARS-CoV-2 (PCR) Detected A 03/23/23 23:15 WBC Neutrophils # Lymphocytes # Sodium Chloride Carbon Dioxide Creatinine Calcium Total Protein Albumin Urine Protein Trace H Urine Ketones Trace H SARS-CoV-2 (PCR) - Diagnostic Findings Chest x-ray: image reviewed Assessment and Plan Assessment: Acute hypoxemic respiratory failure secondary to recurrent/persistent left lower lobe pneumonia. Chest x-ray on arrival demonstrates worsening opacities within the left mid and lower lung zones compared to his recent imaging. There was also suspected right lower lung atelectasis, and trace to small bilateral pleural effusions. Also, did test positive for COVID-19, possibly an incidental finding. Leukocytosis, secondary to above Acute COPD exacerbation, secondary to above Recent diagnosis of metastatic pulmonary adenocarcinoma based on pleural fluid cytology from a left-sided thoracentesis 03/11/23 History of right apical lung nodule measuring 10 by 7 mm June, Benign essential hypertension Hyperlipidemia GERD Chronic ongoing tobacco dependence plan: Patient's medications, labs, chest x-ray reviewed continue BiPAP Start patient on combination of Ventolin HFA, Symbicort inhaler, and IV Decadron Continue empiric antibiotics Check procalcitonin Blood cultures are pending Consult oncology Scheduled to undergo PET scan outpatient DVT prophylaxis Pepcid for GI prophylaxis Patient's overall prognosis is guarded related to above-mentioned comorbidities. We will continue to follow and make recommendations I have personally seen and examined the patient, performed the documentation and the assessment and plan as written. Number of minutes spent on the visit:20 Time with Patient: Greater than 30
[2023-03-24] MEDS: PIPERACILLIN-TAZOBACTAM 3.375 GM in SODIUM CHLORIDE 0.9% 100 ML IVPB SCH ×2 (04:40→10:28)
[2023-03-24] MEDS ORDERED: methylPREDNISolone SOD SUCCI 40 MG/ML 1 ML VIAL IV SCH (06:00)
--- NOTE | 2023-03-24 07:11 | XR ---
EXAMINATION TYPE: XR chest 1V portable DATE OF EXAM: 03/24/2023 6:27 AM COMPARISON: Chest radiographs from 03/23/2023 TECHNIQUE: XR chest 1V portable Portable AP radiograph of the chest. CLINICAL INDICATION:Male, 73 years old with history of pneumonia; FINDINGS: Lungs/Pleura: Similar small moderate size left pleural effusion with increased small right pleural ef fusion. Slightly decreased left midlung airspace opacities. Similar right lower medial lung consolida tion. Pulmonary vascularity: Unremarkable. Heart/mediastinum: Cardiomediastinal silhouette is partially obscured due to overlying and adjacent o pacities. Musculoskeletal: No acute osseous pathology. Right shoulder prosthesis. Remote right-sided rib fractu res. IMPRESSION: 1. Similar small to moderate size left pleural effusion with increased small right pleural effusion. 2. Continued right lower lung consolidation with slightly decreased left midlung airspace opacities.
[2023-03-24] MEDS: SYMBICORT 160-4.5 MCG INHALER INHALATION SCH ×2 (07:54→20:14)
[2023-03-24] MEDS: HEPARIN SODIUM,PORCINE 5,000 UNIT/ML 1 ML VIAL SQ SCH ×2 (08:46→15:26)
[2023-03-24] MEDS: lisinopriL 20 MG TAB PO SCH (08:46)
[2023-03-24] MEDS: BISOPROLOL-HCTZ 5-6.25 MG 1 EACH TAB PO SCH (08:46)
[2023-03-24] MEDS: FAMOTIDINE 20 MG TAB PO SCH (08:46)
[2023-03-24] MEDS: DEXAMETHASONE SOD PHOSPHATE 10 MG/ML 1 ML VIAL IVP SCH (08:46)
[2023-03-24] MEDS: amLODIPine 10 MG TAB PO SCH (08:46)
[2023-03-24 09:42] LABS: Basophils % (A) 0 %; Eosinophils % (A) 0 %; HGB 13.8 gm/dL (13.0-17.5); Hypochromasia Slight; Lymphocytes # (A) 0.3 k/uL (1.0-4.8); Lymphocytes % (A) 3 %; MCH 29.1 pg (25.0-35.0); MCHC 31.3 g/dL (31.0-37.0); MCV 92.9 fL (80.0-100.0); Mean Platelet Volume 8.6; Monocytes # (A) 0.3 k/uL (0-1.0); Monocytes % (A) 4 %; Neutrophils # (A) 8.1 k/uL (1.3-7.7); Neutrophils % (A) 92 %; Platelet Count 140 k/uL (150-450); RBC 4.73 m/uL (4.30-5.90); WBC 8.8 k/uL (3.8-10.6)
[2023-03-24 09:56] LABS: African American GFR (CKD) >90 (>60 ml/min/1.73 sqM); Anion Gap 3 mmol/L; Blood Urea Nitrogen 15 mg/dL (9-20); Calcium 8.2 mg/dL (8.4-10.2); Carbon Dioxide 38 mmol/L (22-30); Chloride 95 mmol/L (98-107); Glucose 118 mg/dL (74-99); Non-African American GFR(CKD) >90 (>60 ml/min/1.73 sqM); Potassium 3.9 mmol/L (3.5-5.1); Sodium 136 mmol/L (137-145)
[2023-03-24] MEDS: CHOLECALCIFEROL 25 MCG (1000 IU) TABLET PO SCH (10:24)
[2023-03-24] MEDS: ASCORBIC ACID 500 MG TAB PO SCH (10:24)
[2023-03-24] MEDS: ZINC SULFATE 220 MG CAP PO SCH (10:24)
[2023-03-24] MEDS ORDERED: BETAMETHASONE DIPROPIONATE 0.05% CREAM 15 GM TUBE TOPICAL PRN (12:36)
[2023-03-24] MEDS ORDERED: KETOCONAZOLE 2% SHAMPOO 1 APPLIC/ML TOPICAL PRN (12:36)
[2023-03-24] MEDS ORDERED: ALBUTEROL NEBULIZED 2.5 MG/3 ML INHALATION SCH (13:00)
--- NOTE | 2023-03-24 13:36 | P.HPIM ---
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, presented to [facility] emergency room with shortness of breath, and positive for Covid, patient also demonstrating a l eft sided infiltrate is currently on BiPAP steroid-dependent O2 dependent BiPAP dependent lung disease long-standing smoker essentially quit approximately 2 weeks ago Review of Systems Constitutional: Reports fatigue, Reports malaise, Reports night sweats, Reports sweats Ears, nose, mouth and throat: Reports as per HPI Cardiovascular: Reports as per HPI Respiratory: Reports congestion, Reports cough, Reports dyspnea, Reports home oxygen, Reports respiratory infections (on BiPAP, Covid positive), Reports sleep apnea Gastrointestinal: Reports as per HPI Genitourinary: Reports as per HPI Musculoskeletal: Reports as per HPI Integumentary: Reports as per HPI Neurological: Reports as per HPI Past Medical History Past Medical History: COPD, GERD/Reflux, Hyperlipidemia, Hypertension Additional Past Medical History / Comment(s): COPD, diverticulosis,tobacco use syndrome History of Any Multi-Drug Resistant Organisms: None Reported Past Surgical History: Orthopedic Surgery, Tonsillectomy Additional Past Surgical History / Comment(s): right ankle surgery, COLONOSCOPY Past Anesthesia/Blood Transfusion Reactions: No Reported Reaction Past Psychological History: No Psychological Hx Reported Smoking Status: Former smoker Past Alcohol Use History: None Reported Additional Past Alcohol Use History / Comment(s): Smoking 1 ppd since age 17, now quit. Past Drug Use History: None Reported - Past Family History Mother Family Medical History: Coronary Artery Disease (CAD) Father Family Medical History: Cancer Additional Family Medical History / Comment(s): lymphoma Medications and Allergies Home Medications Medication Instructions Recorded Confirmed Type Bisoprolol-Hctz 5-6.25 mg [Ziac 1 tab PO DAILY 08/24/16 03/23/23 History 5-6.25 MG] Simvastatin [Zocor] 40 mg PO HS 08/24/16 03/23/23 History Ubidecarenone [Co Q-10] 10 mg PO DAILY@1200 08/24/16 03/23/23 History amLODIPine BESYLATE/BENAZEPRIL 1 cap PO DAILY 08/24/16 03/23/23 History [amLODIPine BESYLATE/BENAZEPRIL 10-20 MG] Fluticasone/Umeclidin/Vilanter 1 puff INHALATION RT-DAILY 07/25/20 03/23/23 History [Trelegy Ellipta 100-62.5-25] Omeprazole Magnesium [PriLOSEC OTC] 20 mg PO BID 07/25/20 03/23/23 History Vit C/E/Zn/Coppr/Lutein/Zeaxan 1 tab PO DAILY@1200 07/25/20 03/23/23 History [Preservision Areds 2 Softgel] Albuterol Inhaler [Ventolin Hfa 1 - 2 puff INHALATION RT-Q6H PRN 03/07/23 03/23/23 History Inhaler] Albuterol Nebulized [Ventolin 2.5 mg INHALATION RT-TID 03/07/23 03/23/23 History Nebulized] Fluocinonide 0.05% Solution 1 applic TOPICAL HS PRN 03/07/23 03/23/23 History Ketoconazole 2% Shampoo [Nizoral] 1 applic TOPICAL DAILY PRN 03/07/23 03/23/23 History Krill/Om-3/Dha/Epa/Phospho/Ast 1 cap PO DAILY@1200 03/07/23 03/23/23 History [Krill Oil 500 mg Softgel] Turmeric Root Extract [Turmeric] 500 mg PO HS 03/07/23 03/23/23 History lisinopriL [Zestril] 20 mg PO DAILY 30 Days #30 tab 03/14/23 03/23/23 Rx ALPRAZolam [Xanax] 0.25 mg PO Q6H PRN 03/23/23 03/23/23 History Allergies Allergy/AdvReac Type Severity Reaction Status Date / Time No Known Allergies Allergy Verified 03/23/23 19:02 Physical Exam Osteopathic Statement: *. No significant issues noted on an osteopathic s tructural exam other than those noted in the History and Physical/Consult. Vitals: Vital Signs Temp Pulse Pulse Resp BP BP Pulse Ox 03/24/23 13:00 92 03/24/23 12:33 03/24/23 11:45 92 L 03/24/23 11:40 84 L 03/24/23 11:04 98.0 F 92 24 117/74 93 L 03/24/23 10:55 24 91 L 03/24/23 10:45 24 93 L 03/24/23 10:35 24 94 L 03/24/23 08:36 98.2 F 98 20 107/64 92 L 03/24/23 07:58 03/24/23 04:14 03/24/23 04:00 89 24 99/66 91 L 03/24/23 01:10 100 40 H 03/24/23 00:57 03/24/23 00:00 98.1 F 100 40 H 97/67 03/23/23 20:16 95 35 H 124/78 92 L 03/23/23 20:08 96 24 111/70 92 L 03/23/23 19:34 03/23/23 18:47 104 H 24 111/71 93 L 03/23/23 18:21 102 H 03/23/23 18:15 03/23/23 18:13 105 H 03/23/23 17:48 110 H 03/23/23 16:54 98.1 F 87 94 H 124/79 94 L FiO2 03/24/23 13:00 03/24/23 12:33 70 03/24/23 11:45 60 03/24/23 11:40 70 03/24/23 11:04 03/24/23 10:55 03/24/23 10:45 03/24/23 10:35 03/24/23 08:36 60 03/24/23 07:58 60 03/24/23 04:14 60 03/24/23 04:00 60 03/24/23 01:10 03/24/23 00:57 60 03/24/23 00:00 03/23/23 20:16 60 03/23/23 20:08 03/23/23 19:34 60 03/23/23 18:47 03/23/23 18:21 03/23/23 18:15 60 03/23/23 18:13 03/23/23 17:48 03/23/23 16:54 Intake and Output 03/23/23 03/24/23 03/24/23 22:59 06:59 14:59 Output Total 500 Balance -500 Output: Urine 500 Other: Voiding Method Urinal Urinal # Voids 1 Weight 74.389 kg General: Patient awake, alert and oriented times 3. Patient in no acute distress. HEENT: PERRL. EOMI. No pharyngeal erythema or exudate. Neck: No adenopathy. Cardiac: heart regular in rate and rhythm. No S3. No S4. No clicks, rubs. No murmur. Lungs: diminished breath sounds bilaterally left worse than right Abdomen: No mass. No organomegaly. Bowel sounds presnt and normoactive in all 4 quadrants. Extremes: [No edema no cyanosis no claudication normal pulses] : normal male genitalia Musculoskeletal: [No joint erythema, edema or tenderness.] Skin: [No rash.] Neurologic: [No lateralizing deficits. CN II - XII grossly intact.] Lymphatic: [No adenopathy.] Results CBC & Chem 7: 03/24/23 08:17 03/24/23 08:17 Labs: Abnormal Lab Results - Last 24 Hours (Table) 03/23/23 03/23/23 03/23/23 Range/Units 18:06 18:06 18:06 WBC 16.9 H (3.8-10.6) k/uL Plt Count (150-450) k/uL Neutrophils # 14.8 H (1.3-7.7) k/uL Lymphocytes # 0.7 L (1.0-4.8) k/uL Sodium 133 L (137-145) mmol/L Chloride 92 L (98-107) mmol/L Carbon Dioxide 39 H (22-30) mmol/L Creatinine 0.43 L (0.66-1.25) mg/dL Glucose (74-99) mg/dL Calcium 8.2 L (8.4-10.2) mg/dL Total Protein 5.6 L (6.3-8.2) g/dL Albumin 2.7 L (3.5-5.0) g/dL Urine Protein (Negative) Urine Ketones (Negative) SARS-CoV-2 (PCR) Detected A (Not Detectd) 03/23/23 03/24/23 03/24/23 Range/Units 23:15 08:17 08:17 WBC (3.8-10.6) k/uL Plt Count 140 L (150-450) k/uL Neutrophils # 8.1 H (1.3-7.7) k/uL Lymphocytes # 0.3 L (1.0-4.8) k/uL Sodium 136 L (137-145) mmol/L Chloride 95 L (98-107) mmol/L Carbon Dioxide 38 H (22-30) mmol/L Creatinine 0.47 L (0.66-1.25) mg/dL Glucose 118 H (74-99) mg/dL Calcium 8.2 L (8.4-10.2) mg/dL Total Protein (6.3-8.2) g/dL Albumin (3.5-5.0) g/dL Urine Protein Trace H (Negative) Urine Ketones Trace H (Negative) SARS-CoV-2 (PCR) (Not Detectd) Thrombosis Risk Factor Assmnt - DVT/VTE Prophylaxis DVT/VTE Prophylaxis: Pharmacologic Prophylaxis ordered - Choose All That Apply Any of the Below Risk Factors Present?: Yes Each Factor Represents 1 point: Abnormal pulmonary function (COPD), Medical pt on bed rest, Swollen legs (current) Other Risk Factors: Yes Each Risk Factor Represents 2 Points: Age 61-74 years, Patient confined to bed Other congenital or acquired thrombophilia - If yes, enter type in comment: No Thrombosis Risk Factor Assessment Total Risk Factor Score: 7 Thrombosis Risk Factor Assessment Level: High Risk Assessment and Plan (1) Acute respiratory failure with hypoxia Current Visit: Yes Status: Acute Code(s): J96.01 - ACUTE RESPIRATORY FAILURE WITH HYPOXIA SNOMED Code(s): 24175033 (2) COPD (chronic obstructive pulmonary disease) Current Visit: Yes Status: Acute Code(s): J44.9 - CHRONIC OBSTRUCTIVE PULMONARY DISEASE, UNSPECIFIED SNOMED Code(s): 81089884 (3) COVID-19 Current Visit: Yes Status: Acute Code(s): U07.1 - COVID-19 SNOMED Code(s): 188646481 (4) Pneumonia Current Visit: Yes Status: Acute Code(s): J18.9 - PNEUMONIA, UNSPECIFIED ORGANISM SNOMED Code(s): 162377837 (5) Acute and chronic respiratory failure ([id number]) Current Visit: No Status: Acute Code(s): J96.20 - ACUTE AND CHR RESP FAILURE, UNSP W HYPOXIA OR HYPERCAPNIA SNOMED Code(s): 17075737 (6) Adenocarcinoma of lung Current Visit: No Status: Acute Priority: High Code(s): C34.90 - MALIGNANT NEOPLASM OF UNSP PART OF UNSP BRONCHUS OR LUNG SNOMED Code(s): 067288219 (7) Atherosclerosis of abdominal aorta Current Visit: No Status: Acute Code(s): I70.0 - ATHEROSCLEROSIS OF AORTA SNOMED Code(s): 521476286 Plan: admit to the hospital Pulmonary consultation IV Decadron IV Zithromax BiPAP Further imaging as outpatient for bronchogenic carcinoma IE PET scan Time with Patient: Greater than 30
--- NOTE | 2023-03-24 15:26 | P.CONS ---
History of Present Illness - Reason for Consult Consult date: 03/24/23 Adenocarcinoma of lung - Chief Complaint Dyspnea - History of Present Illness Mr. Rhodes is a 73-year-old gentleman with a past medical history significant for oxygen dependent COPD and recently diagnosed adenocarcinoma of the lung who presents with acute on chronic hypoxic respiratory failure secondary to COVID- 19. He was recently admitted on 03/07/2023, were CT angio noted no evidence of pulmonary embolism, but did note left pleural effusion and left superior lung mass. Diagnostic/therapeutic thoracentesis was performed with the left pleural fluid cytology being positive for adenocarcinoma. CT abdomen/pelvis revealed no evidence of distant metastasis with MRI of the brain on 03/14/2023 revealing no evidence of intracranial metastasis. He was discharged on 4 L nasal cannula on 03/15/2023. Since then, has had progressive dyspnea, denies any fevers, chills, rhinorrhea, sore throat, or congestion. He does note nonproductive cough, but denies any hemoptysis. He is found to be hypoxic on room air and was requiring 10 L high flow nasal cannula on initial presentation. Since admission, he has been on BiPAP along with high flow nasal cannula. CBC noted neutrophilic leukocytosis with WBC 16.9 (ANC 14.8) and CMP revealed no acute metabolic abnormalities. He was found to be positive for COVID-19 on viral panel. Chest x-ray noted worsening airspace opacities in the left mid and lower left lung eugene as well as right basilar opacities along with vascular congestion and interstitial prominence concerning for pulmonary edema. He received a total of methylprednisolone 165 mg IV in addition to DuoNeb breathing treatments, 1.5 L of normal saline bolus, Zosyn, and azithromycin. He is currently on dexamethasone 6 mg IV daily, zinc, and azithromycin 500 mg IV. He notes mild improvement since admission. With regards to his malignancy, he was to follow- up in clinic with myself on 03/26/2023. He was set to have PET/CT performed outpatient as well. Review of Systems 14 point review of systems was conducted with pertinent positives and negatives as noted per HPI. Past Medical History Past Medical History: COPD, GERD/Reflux, Hyperlipidemia, Hypertension Additional Past Medical History / Comment(s): COPD, diverticulosis,tobacco use syndrome History of Any Multi-Drug Resistant Organisms: None Reported Past Surgical History: Orthopedic Surgery, Tonsillectomy Additional Past Surgical History / Comment(s): right ankle surgery, COLONOSCOPY Past Anesthesia/Blood Transfusion Reactions: No Reported Reaction Past Psychological History: No Psychological Hx Reported Smoking Status: Former smoker Past Alcohol Use History: None Reported Additional Past Alcohol Use History / Comment(s): Smoking 1 ppd since age 17, now quit. Past Drug Use History: None Reported - Past Family History Mother Family Medical History: Coronary Artery Disease (CAD) Father Family Medical History: Cancer Additional Family Medical History / Comment(s): lymphoma Medications and Allergies Home Medications Medication Instructions Recorded Confirmed Type Bisoprolol-Hctz 5-6.25 mg [Ziac 1 tab PO DAILY 08/24/16 03/23/23 History 5-6.25 MG] Simvastatin [Zocor] 40 mg PO HS 08/24/16 03/23/23 History Ubidecarenone [Co Q-10] 10 mg PO DAILY@1200 08/24/16 03/23/23 History amLODIPine BESYLATE/BENAZEPRIL 1 cap PO DAILY 08/24/16 03/23/23 History [amLODIPine BESYLATE/BENAZEPRIL 10-20 MG] Fluticasone/Umeclidin/Vilanter 1 puff INHALATION RT-DAILY 07/25/20 03/23/23 History [Trelegy Ellipta 100-62.5-25] Omeprazole Magnesium [PriLOSEC OTC] 20 mg PO BID 07/25/20 03/23/23 History Vit C/E/Zn/Coppr/Lutein/Zeaxan 1 tab PO DAILY@1200 07/25/20 03/23/23 History [Preservision Areds 2 Softgel] Albuterol Inhaler [Ventolin Hfa 1 - 2 puff INHALATION RT-Q6H PRN 03/07/23 03/23/23 History Inhaler] Albuterol Nebulized [Ventolin 2.5 mg INHALATION RT-TID 03/07/23 03/23/23 History Nebulized] Fluocinonide 0.05% Solution 1 applic TOPICAL HS PRN 03/07/23 03/23/23 History Ketoconazole 2% Shampoo [Nizoral] 1 applic TOPICAL DAILY PRN 03/07/23 03/23/23 History Krill/Om-3/Dha/Epa/Phospho/Ast 1 cap PO DAILY@1200 03/07/23 03/23/23 History [Krill Oil 500 mg Softgel] Turmeric Root Extract [Turmeric] 500 mg PO HS 03/07/23 03/23/23 History lisinopriL [Zestril] 20 mg PO DAILY 30 Days #30 tab 03/14/23 03/23/23 Rx ALPRAZolam [Xanax] 0.25 mg PO Q6H PRN 03/23/23 03/23/23 History Allergies Allergy/AdvReac Type Severity Reaction Status Date / Time No Known Allergies Allergy Verified 03/23/23 19:02 Physical Exam Vitals: Vital Signs Temp Pulse Pulse Resp BP BP Pulse Ox 03/24/23 13:00 92 03/24/23 12:33 03/24/23 11:45 92 L 03/24/23 11:40 84 L 03/24/23 11:04 98.0 F 92 24 117/74 93 L 03/24/23 10:55 24 91 L 03/24/23 10:45 24 93 L 03/24/23 10:35 24 94 L 03/24/23 08:36 98.2 F 98 20 107/64 92 L 03/24/23 07:58 03/24/23 04:14 03/24/23 04:00 89 24 99/66 91 L 03/24/23 01:10 100 40 H 03/24/23 00:57 03/24/23 00:00 98.1 F 100 40 H 97/67 03/23/23 20:16 95 35 H 124/78 92 L 03/23/23 20:08 96 24 111/70 92 L 03/23/23 19:34 03/23/23 18:47 104 H 24 111/71 93 L 03/23/23 18:21 102 H 03/23/23 18:15 03/23/23 18:13 105 H 03/23/23 17:48 110 H 03/23/23 16:54 98.1 F 87 94 H 124/79 94 L FiO2 03/24/23 13:00 03/24/23 12:33 70 03/24/23 11:45 60 03/24/23 11:40 70 03/24/23 11:04 03/24/23 10:55 03/24/23 10:45 03/24/23 10:35 09/04/23 08:36 60 03/24/23 07:58 60 03/24/23 04:14 60 03/24/23 04:00 60 03/24/23 01:10 03/24/23 00:57 60 03/24/23 00:00 03/23/23 20:16 60 03/23/23 20:08 03/23/23 19:34 60 03/23/23 18:47 03/23/23 18:21 03/23/23 18:15 60 03/23/23 18:13 03/23/23 17:48 03/23/23 16:54 Intake and Output 03/24/23 03/24/23 03/24/23 06:59 14:59 22:59 Output Total 500 Balance -500 Output: Urine 500 Other: Voiding Method Urinal Urinal # Voids 1 - Constitutional General appearance: cooperative, no acute distress - EENT Eyes: EOMI - Respiratory Respiratory: bilateral: other ( Inspiratory crackles heard at the mid and lower lung eugene bilaterally) - Cardiovascular Rhythm: regular - Gastrointestinal General gastrointestinal: no distended, soft - Integumentary Integumentary: pale, no rash - Neurologic Neurologic: CNII-XII intact Results CBC & Chem 7: 03/24/23 08:17 03/24/23 08:17 Labs: Abnormal Lab Results - Last 24 Hours (Table) 03/23/23 03/23/23 03/23/23 Range/Units 18:06 18:06 18:06 WBC 16.9 H (3.8-10.6) k/uL Plt Count (150-450) k/uL Neutrophils # 14.8 H (1.3-7.7) k/uL Lymphocytes # 0.7 L (1.0-4.8) k/uL Sodium 133 L (137-145) mmol/L Chloride 92 L (98-107) mmol/L Carbon Dioxide 39 H (22-30) mmol/L Creatinine 0.43 L (0.66-1.25) mg/dL Glucose (74-99) mg/dL Calcium 8.2 L (8.4-10.2) mg/dL Total Protein 5.6 L (6.3-8.2) g/dL Albumin 2.7 L (3.5-5.0) g/dL Urine Protein (Negative) Urine Ketones (Negative) SARS-CoV-2 (PCR) Detected A (Not Detectd) 03/23/23 03/24/23 03/24/23 Range/Units 23:15 08:17 08:17 WBC (3.8-10.6) k/uL Plt Count 140 L (150-450) k/uL Neutrophils # 8.1 H (1.3-7.7) k/uL Lymphocytes # 0.3 L (1.0-4.8) k/uL Sodium 136 L (137-145) mmol/L Chloride 95 L (98-107) mmol/L Carbon Dioxide 38 H (22-30) mmol/L Creatinine 0.47 L (0.66-1.25) mg/dL Glucose 118 H (74-99) mg/dL Calcium 8.2 L (8.4-10.2) mg/dL Total Protein (6.3-8.2) g/dL Albumin (3.5-5.0) g/dL Urine Protein Trace H (Negative) Urine Ketones Trace H (Negative) SARS-CoV-2 (PCR) (Not Detectd) Abdominal x-ray: image reviewed CT scan - chest: image reviewed Assessment and Plan (1) COVID-19 Current Visit: Yes Status: Acute Code(s): U07.1 - COVID-19 SNOMED Code(s): 786623053 (2) Acute and chronic respiratory failure ([id number]) Current Visit: No Status: Acute Code(s): J96.20 - ACUTE AND CHR RESP FAILURE, UNSP W HYPOXIA OR HYPERCAPNIA SNOMED Code(s): 06222378 (3) Adenocarcinoma of lung Current Visit: No Status: Acute Priority: High Code(s): C34.90 - MALIGNANT NEOPLASM OF UNSP PART OF UNSP BRONCHUS OR LUNG SNOMED Code(s): 442316423 Plan: #Acute on chronic hypoxic respiratory failure secondary to COVID-19 superimposed on COPD -Currently on IV dexamethasone and zinc -Was previously on BiPAP this admission, currently on high flow nasal cannula -Continue management per pulmonary and primary medicine teams #Adenocarcinoma of the lung -CTA of the chest on 03/07/2023 noted left pleural effusion along with superior mass in the left lung -CT abdomen/pelvis on 03/14/2023 with MRI brain on 03/14/2023 revealed no evidence of distant metastatic disease -Clinically, 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
[2023-03-24 17:18] LABS: Glucose,Whole Blood 133 mg/dL (70-110)
[2023-03-24] MEDS: ATORVASTATIN 20 MG TAB PO SCH (20:11)
[2023-03-24] MEDS: AZITHROMYCIN 500 MG in SODIUM CHLORIDE 0.9% 250 ML IVPB SCH ×2 (20:11→22:30)
[2023-03-24] MEDS ORDERED: FUROSEMIDE 10 MG/ML 10 ML VIAL IV STA (20:43)
[2023-03-24 21:05] LABS: Glucose,Whole Blood 143 mg/dL (70-110)
[2023-03-25] MEDS: HEPARIN SODIUM,PORCINE 5,000 UNIT/ML 1 ML VIAL SQ SCH ×4 (00:08→23:41)
[2023-03-25] MEDS: ALBUTEROL HFA INHALER INHALATION SCH ×6 (00:18→21:27)
[2023-03-25 06:06] LABS: Glucose,Whole Blood 115 mg/dL (70-110)
[2023-03-25] MEDS: amLODIPine 10 MG TAB PO SCH (07:55)
[2023-03-25] MEDS: ASCORBIC ACID 500 MG TAB PO SCH (07:55)
[2023-03-25] MEDS: FAMOTIDINE 20 MG TAB PO SCH (07:55)
[2023-03-25] MEDS: lisinopriL 20 MG TAB PO SCH (07:55)
[2023-03-25] MEDS: ZINC SULFATE 220 MG CAP PO SCH (07:55)
[2023-03-25] MEDS: DEXAMETHASONE SOD PHOSPHATE 10 MG/ML 1 ML VIAL IVP SCH (07:55)
[2023-03-25] MEDS: BISOPROLOL-HCTZ 5-6.25 MG 1 EACH TAB PO SCH (07:55)
[2023-03-25] MEDS: CHOLECALCIFEROL 25 MCG (1000 IU) TABLET PO SCH (07:55)
[2023-03-25] MEDS: PANTOPRAZOLE 40 MG TABLET PO SCH (07:55)
[2023-03-25] MEDS ORDERED: IPRATROPIUM 0.5 MG/2.5 ML NEBU INHALATION SCH (08:00)
[2023-03-25] MEDS: SYMBICORT 160-4.5 MCG INHALER INHALATION SCH ×2 (08:54→21:27)
[2023-03-25 11:52] LABS: Glucose,Whole Blood 110 mg/dL (70-110)
--- NOTE | 2023-03-25 12:18 | P.PN ---
Subjective Progress Note Date: 03/25/23 Principal diagnosis: COVID At today's visit patient is resting comfortably in bed. Patient is on Airvo, SPO2 91%. Patient is afebrile. Reports no changes in breathing/shortness of breath. Objective - Vital Signs Vital signs: Vital Signs Temp 97.6 F 03/25/23 07:50 Pulse 89 03/25/23 11:51 Resp 24 03/25/23 11:51 BP 113/75 03/25/23 11:51 Pulse Ox 93 L 03/25/23 11:51 FiO2 90 03/25/23 11:55 Intake & Output 03/24/23 03/25/23 03/25/23 18:59 06:59 18:59 Intake Total 0 Output Total 800 1745 300 Balance -800 -1745 -300 Intake: Oral 0 Output: Urine 800 1745 300 Other: Voiding Method Urinal Urinal Urinal - Constitutional General appearance: Present: average body habitus, no acute distress - EENT Eyes: Present: anicteric sclerae, EOMI ENT: Present: hearing grossly normal - Respiratory Details: breathing mildly labored - Cardiovascular Details: skin warm and dry - Integumentary Integumentary: Absent: cyanotic - Musculoskeletal Musculoskeletal: Present: generalized weakness - Psychiatric Psychiatric: Present: A&O x's 3, appropriate affect, intact judgment & insight - Labs CBC & Chem 7: 03/24/23 08:17 03/24/23 08:17 Labs: Abnormal Lab Results - Last 24 Hours (Table) 03/24/23 03/24/23 03/25/23 Range/Units 17:14 21:04 06:03 POC Glucose (mg/dL) 133 H 143 H 115 H (70-110) mg/dL Microbiology - Last 24 Hours (Table) 03/23/23 19:35 Blood Culture - Preliminary Blood 03/23/23 19:20 Blood Culture - Preliminary Blood Assessment and Plan (1) COVID-19 Current Visit: Yes Status: Acute Priority: High Code(s): U07.1 - COVID-19 SNOMED Code(s): 036209964 (2) Adenocarcinoma of lung Current Visit: Yes Status: Acute Priority: High Code(s): C34.90 - MALIGNANT NEOPLASM OF UNSP PART OF UNSP BRONCHUS OR LUNG SNOMED Code(s): 339580502 Plan: #Acute on chronic hypoxic respiratory failure secondary to COVID-19 superimposed on COPD -Currently on IV dexamethasone and zinc and azithromycin -Was previously on BiPAP this admission, currently on high flow nasal cannula -Continue management per pulmonary and primary medicine teams #Adenocarcinoma of the lung -CTA of the chest on 03/07/2023 noted left pleural effusion along with superior mass in the left lung -CT abdomen/pelvis on 03/14/2023 with MRI brain on 03/14/2023 revealed no evidence of distant metastatic disease -Clinically, 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
--- NOTE | 2023-03-25 13:12 | P.PN ---
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 Maintained on covid cocktail.Currently maintaining O2 sats in the 90s on airvo flow 60 and Fio2 90. BiPAP at bedside. Reports fatigue, weakness. Afebrile. Pro-calcitonin 0.06. Preliminary blood cultures reporting no growth after 24 hours. Denies chest pain, palpitations. Objective - Vital Signs Vital signs: Vital Signs Temp 97.6 F 03/25/23 07:50 Pulse 89 03/25/23 11:51 Resp 24 03/25/23 11:51 BP 113/75 03/25/23 11:51 Pulse Ox 93 L 03/25/23 11:51 FiO2 90 03/25/23 11:55 Intake & Output 03/24/23 03/25/23 03/25/23 18:59 06:59 18:59 Intake Total 0 Output Total 800 1745 300 Balance -800 -1745 -300 Intake: Oral 0 Output: Urine 800 1745 300 Other: Voiding Method Urinal Urinal Urinal - Exam General: Patient awake, alert and oriented times 3. wearing AIrvo. HEENT: PERRL. EOMI. No pharyngeal erythema or exudate. Neck: No adenopathy. Cardiac: heart regular in rate and rhythm. No S3. No S4. No clicks, rubs. No murmur. Lungs: diminished breath sounds bilaterally left worse than right with scattered rhonchi Abdomen: Soft, nontender, no guarding. Bowel sounds presnt and normoactive in all 4 quadrants. Extremes: [No edema no cyanosis no claudication normal pulses] Skin: [No rash.] Neurologic: [No lateralizing deficits. CN II - XII grossly intact.] - Labs CBC & Chem 7: 03/24/23 08:17 03/24/23 08:17 Labs: Abnormal Lab Results - Last 24 Hours (Table) 03/24/23 03/24/23 03/25/23 Range/Units 17:14 21:04 06:03 POC Glucose (mg/dL) 133 H 143 H 115 H (70-110) mg/dL Microbiology - Last 24 Hours (Table) 03/23/23 19:35 Blood Culture - Preliminary Blood 03/23/23 19:20 Blood Culture - Preliminary Blood Assessment and Plan Assessment: Assessment and Plan (1) Acute respiratory failure with hypoxia Current Visit: Yes Status: Acute Code(s): J96.01 - ACUTE RESPIRATORY FAILURE WITH HYPOXIA SNOMED Code(s): 69615890 (2) COPD (chronic obstructive pulmonary disease) Current Visit: Yes Status: Acute Code(s): J44.9 - CHRONIC OBSTRUCTIVE P ULMONARY DISEASE, UNSPECIFIED SNOMED Code(s): 77069968 (3) COVID-19 Current Visit: Yes Status: Acute Code(s): U07.1 - COVID-19 SNOMED Code(s): 329213443 (4) Pneumonia Current Visit: Yes Status: Acute Code(s): J18.9 - PNEUMONIA, UNSPECIFIED ORGANISM SNOMED Code(s): 191834486 (5) Acute and chronic respiratory failure ([id number]) Current Visit: No Status: Acute Code(s): J96.20 - ACUTE AND CHR RESP FAILURE, UNSP W HYPOXIA OR HYPERCAPNIA SNOMED Code(s): 51355230 (6) Adenocarcinoma of lung Current Visit: No Status: Acute Priority: High Code(s): C34.90 - MALIGNANT NEOPLASM OF UNSP PART OF UNSP BRONCHUS OR LUNG SNOMED Code(s): 676495771 (7) Atherosclerosis of abdominal aorta Current Visit: No Status: Acute Code(s): I70.0 - ATHEROSCLEROSIS OF AORTA SNOMED Code(s): 360680989 Plan: Continue on current medication regime ,monitoring and symptomatic treatment.COVID COCKtail. Blood cultures in progress. Following closely with pulmonary and oncology. Prognosis guarded given multiple complex medical issues. The impression and plan of care has been dictated as directed. : I performed a history and examination of this patient, discussed the same with the dictator. I agree with the dictator's note ,documented as a scribe. Any additional findings or plans will be noted.
--- NOTE | 2023-03-25 13:26 | P.PN ---
Subjective Progress Note Date: 03/25/23 Principal diagnosis: Hypoxemic respiratory failure. I am seeing this patient in new consultation today 03/24/2023 for suspected left lower lobe pneumonia. Patient is a 73-year-old white male with past medical history significant for recent admission with left lower lobe pneumonia, discharged on March 17. During this admission, the patient was also found to have metastatic adenocarcinoma of the lung based on pleural fluid cytology from a left sided thoracentesis. He also has history of COPD, hypertension, hyperlipidemia, GERD, and ongoing chronic tobacco dependence. Patient is known to have a 10 mm x 7mm right upper lung nodule, originally seen back in June,. His PCP is Dr. Nichols. Chest CT from his most recent admission, March 07, demonstrated a right upper lung bronchus large airway occlusion concerning for obstructive mass. There was also a loculated left pleural effusion with left lung consolidation. The patient was treated with IV antibiotics and discharged home on Augmentin. He was established with an oncologist, and is reportedly going to undergo a PET scan outpatient. Patient returned to the emergency room last night, reporting that he's had ongoing progressively worsening shortness of breath since discharge. He admits an associated nonproductive cough. Denies any fever, chills, myalgias, hemoptysis. Denies any chest pain, palpitations, lower extremity edema, syncope. A chest x-ray done on arrival, showed worsening airspace opacities within the left mid and lower lung zones compared to prior imaging. There was also suspected right lower lung atelectasis, and trace to small bilateral pleural effusions. Patient did test positive for COVID-19, possibly an incidental finding. Patient is currently sitting up in bed, on BiPAP with settings 12/6 and FiO2 of 60%. Appears fairly comfortable. Respiratory rate is high 20s to low 30s and is achieving tidal volumes around 400. CBC on arrival shows leukocytosis with WBC count of 16.9, hemoglobin 14.7, hematocrit 45.4, platelets 150. BMP shows sodium 133, potassium 4.1, chloride 92, serum bicarbonate 39, BUN 17, creatinine 0.43, glucose 99. Currently receiving normal saline at 100 ML's per hour. He was started on empiric Zosyn and azithromycin. Currently afebrile. Also receiving Ventolin HFA, Symbicort inhaler, and IV Decadron. Patient is being monitored closely on the cardiac stepdown unit. Progress note dated 03/25/2023. 73-year-old male admitted on March 24, with a diagnosis of possible left lower lobe pneumonia, and hypoxemic respiratory failure. Currently, the patient is on BiPAP, with settings of 12/6, and 70%. He has no IV fluids running at this time. He did test positive for coronavirus. He does have a history of lung cancer, adenocarcinoma. The only labs today include glucose of 110. Chest x-ray from March 24, shows a small to moderate-sized left pleural effusion, with increased small right pleural effusion. There is also some right lower lung consolidation. Objective - Vital Signs Vital signs: Vital Signs Temp 97.6 F 03/25/23 07:50 Pulse 89 03/25/23 13:18 Resp 24 03/25/23 11:51 BP 113/75 03/25/23 11:51 Pulse Ox 93 L 03/25/23 11:51 FiO2 90 03/25/23 11:55 Intake & Output 03/24/23 03/25/23 03/25/23 18:59 06:59 18:59 Intake Total 0 Output Total 800 1745 300 Balance -800 -1745 -300 Intake: Oral 0 Output: Urine 800 1745 300 Other: Voiding Method Urinal Urinal Urinal - Exam No acute distress, oriented 3. The patient is currently on BiPAP, with settings of 12/6, and 70%. No use of accessory muscles noted. HEENT examination is grossly unremarkable. Neck supple. Full range of motion. No adenopathy thyromegaly or neck vein distention. Cardiovascular examination reveals regular rhythm rate. S1-S2 normal. No S3 or S4. No discernible murmur noted. Heart rate 89 beats per sounds are distant. Lungs reveal scattered rhonchi, with a few scattered bibasilar crackles. No wheezes. Breath sounds are equal bilaterally. Saturations are 93%. He is currently on AIRVO, at 60 L/m, with an FiO2 of 90%. Abdomen soft bowel sounds are heard. No masses or tenderness. Extremities are intact. No cyanosis clubbing or edema. Skin is without rash or lesion. Neurologic examination is brief but nonfocal. - Labs CBC & Chem 7: 03/24/23 08:17 03/24/23 08:17 Labs: Abnormal Lab Results - Last 24 Hours (Table) 03/24/23 03/24/23 03/25/23 Range/Units 17:14 21:04 06:03 POC Glucose (mg/dL) 133 H 143 H 115 H (70-110) mg/dL Microbiology - Last 24 Hours (Table) 03/23/23 19:35 Blood Culture - Preliminary Blood 03/23/23 19:20 Blood Culture - Preliminary Blood Assessment and Plan Assessment: Acute hypoxemic respiratory failure secondary to recurrent/persistent left lower lobe pneumonia. Chest x-ray on arrival demonstrates worsening opacities within the left mid and lower lung zones compared to his recent imaging. There was also suspected right lower lung atelectasis, and trace to small bilateral pleural effusions. Also, did test positive for COVID-19, possibly an incidental finding. Leukocytosis, secondary to above. Acute COPD exacerbation, secondary to above. Recent diagnosis of metastatic pulmonary adenocarcinoma based on pleural fluid cytology from a left-sided thoracentesis 03/11/23. History of right apical lung nodule measuring 10 by 7 mm June,. Benign essential hypertension. Hyperlipidemia. GERD. Chronic ongoing tobacco dependence. Plan: Plan dated 03/25/2023. The patient's labs, x-rays, and medications are all reviewed. The patient goes between BiPAP, in the AIRVO, for respiratory support. He is currently a full code. The patient's antibiotics and other medications will be continued. Oncology will be consulted. The patient will continue with DVT and GI prophylaxis. The patient's overall prognosis remains very guarded given all of his medical issues. We will continue to follow make recommendations along the way. The patient remains on antibiotics. Time with Patient: Less than 30
[2023-03-25 16:41] LABS: Glucose,Whole Blood 162 mg/dL (70-110)
[2023-03-25 19:52] LABS: Glucose,Whole Blood 109 mg/dL (70-110)
[2023-03-25] MEDS: ATORVASTATIN 20 MG TAB PO SCH (23:41)
[2023-03-26] MEDS: ALBUTEROL HFA INHALER INHALATION SCH ×6 (00:28→20:49)
[2023-03-26] MEDS: PANTOPRAZOLE 40 MG TABLET PO SCH (06:08)
[2023-03-26 06:18] LABS: Glucose,Whole Blood 98 mg/dL (70-110)
[2023-03-26] MEDS: SYMBICORT 160-4.5 MCG INHALER INHALATION SCH ×2 (08:38→20:49)
[2023-03-26] MEDS: ZINC SULFATE 220 MG CAP PO SCH (10:02)
[2023-03-26] MEDS: amLODIPine 10 MG TAB PO SCH (10:02)
[2023-03-26] MEDS: DEXAMETHASONE SOD PHOSPHATE 10 MG/ML 1 ML VIAL IVP SCH (10:02)
[2023-03-26] MEDS: HEPARIN SODIUM,PORCINE 5,000 UNIT/ML 1 ML VIAL SQ SCH ×2 (10:02→18:16)
[2023-03-26] MEDS: FAMOTIDINE 20 MG TAB PO SCH (10:03)
[2023-03-26] MEDS: ASCORBIC ACID 500 MG TAB PO SCH (10:03)
[2023-03-26] MEDS: lisinopriL 20 MG TAB PO SCH (10:03)
[2023-03-26] MEDS: CHOLECALCIFEROL 25 MCG (1000 IU) TABLET PO SCH (10:03)
[2023-03-26] MEDS: BISOPROLOL-HCTZ 5-6.25 MG 1 EACH TAB PO SCH (10:06)
--- NOTE | 2023-03-26 11:40 | P.PN ---
Subjective Progress Note Date: 03/26/23 Principal diagnosis: COVID Breathing remains the same. Reports persisting SOB, continues on Airvo, SPO2 91%. Patient is afebrile. Objective - Vital Signs Vital signs: Vital Signs Temp 98.5 F 03/26/23 11:19 Pulse 121 H 03/26/23 11:19 Resp 31 H 03/26/23 11:19 BP 150/86 03/26/23 11:19 Pulse Ox 89 L 03/26/23 11:19 FiO2 90 03/26/23 11:19 Intake & Output 03/25/23 03/26/23 03/26/23 18:59 06:59 18:59 Intake Total 110 240 120 Output Total 650 1125 Balance -540 -885 120 Intake: Oral 110 240 120 Output: Urine 650 1125 Other: Voiding Method Urinal # Voids 1 - Constitutional General appearance: Present: average body habitus, mild distress - EENT Eyes: Present: anicteric sclerae, EOMI ENT: Present: hearing grossly normal - Respiratory Details: breathing labored - Cardiovascular Details: skin warm and dry - Integumentary Integumentary: Absent: jaundiced - Musculoskeletal Musculoskeletal: Present: generalized weakness - Psychiatric Psychiatric: Present: A&O x's 3, appropriate affect, intact judgment & insight - Labs CBC & Chem 7: 03/24/23 08:17 03/24/23 08:17 Labs: Abnormal Lab Results - Last 24 Hours (Table) 03/25/23 Range/Units 16:33 POC Glucose (mg/dL) 162 H (70-110) mg/dL Microbiology - Last 24 Hours (Table) 03/23/23 19:35 Blood Culture - Preliminary Blood 03/23/23 19:20 Blood Culture - Preliminary Blood Assessment and Plan (1) COVID-19 Current Visit: Yes Status: Acute Priority: High Code(s): U07.1 - COVID-19 SNOMED Code(s): 564443287 (2) Adenocarcinoma of lung Current Visit: Yes Status: Acute Priority: High Code(s): C34.90 - MALIGNANT NEOPLASM OF UNSP PART OF UNSP BRONCHUS OR LUNG SNOMED Code(s): 204562449 Plan: #Acute on chronic hypoxic respiratory failure secondary to COVID-19 superimposed on COPD -Continues on IV dexamethasone and zinc. Completed course of antibiotics -Was previously on BiPAP this admission, currently on high flow nasal cannula. SPO2 91%. 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
[2023-03-26 11:47] LABS: Glucose,Whole Blood 111 mg/dL (70-110)
--- NOTE | 2023-03-26 12:02 | P.PN ---
Subjective Progress Note Date: 03/26/23 Principal diagnosis: Hypoxemic respiratory failure. I am seeing this patient in new consultation today 03/24/2023 for suspected left lower lobe pneumonia. Patient is a 73-year-old white male with past medical history significant for recent admission with left lower lobe pneumonia, discharged on March 17. During this admission, the patient was also found to have metastatic adenocarcinoma of the lung based on pleural fluid cytology from a left sided thoracentesis. He also has history of COPD, hypertension, hyperlipidemia, GERD, and ongoing chronic tobacco dependence. Patient is known to have a 10 mm x 7mm right upper lung nodule, originally seen back in June,. His PCP is Dr. Nichols. Chest CT from his most recent admission, March 07, demonstrated a right upper lung bronchus large airway occlusion concerning for obstructive mass. There was also a loculated left pleural effusion with left lung consolidation. The patient was treated with IV antibiotics and discharged home on Augmentin. He was established with an oncologist, and is reportedly going to undergo a PET scan outpatient. Patient returned to the emergency room last night, reporting that he's had ongoing progressively worsening shortness of breath since discharge. He admits an associated nonproductive cough. Denies any fever, chills, myalgias, hemoptysis. Denies any chest pain, palpitations, lower extremity edema, syncope. A chest x-ray done on arrival, showed worsening airspace opacities within the left mid and lower lung zones compared to prior imaging. There was also suspected right lower lung atelectasis, and trace to small bilateral pleural effusions. Patient did test positive for COVID-19, possibly an incidental finding. Patient is currently sitting up in bed, on BiPAP with settings 12/6 and FiO2 of 60%. Appears fairly comfortable. Respiratory rate is high 20s to low 30s and is achieving tidal volumes around 400. CBC on arrival shows leukocytosis with WBC count of 16.9, hemoglobin 14.7, hematocrit 45.4, platelets 150. BMP shows sodium 133, potassium 4.1, chloride 92, serum bicarbonate 39, BUN 17, creatinine 0.43, glucose 99. Currently receiving normal saline at 100 ML's per hour. He was started on empiric Zosyn and azithromycin. Currently afebrile. Also receiving Ventolin HFA, Symbicort inhaler, and IV Decadron. Patient is being monitored closely on the cardiac stepdown unit. Progress note dated 03/25/2023. 73-year-old male admitted on March 24, with a diagnosis of possible left lower lobe pneumonia, and hypoxemic respiratory failure. Currently, the patient is on BiPAP, with settings of 12/6, and 70%. He has no IV fluids running at this time. He did test positive for coronavirus. He does have a history of lung cancer, adenocarcinoma. The only labs today include glucose of 110. Chest x-ray from March 24, shows a small to moderate-sized left pleural effusion, with increased small right pleural effusion. There is also some right lower lung consolidation. Progress note dated 03/26/2023. 73-year-old male admitted on March 24, with a diagnosis of possible left lower lobe pneumonia and hypoxemic respiratory failure. The patient is currently on AIRVO, with settings of 60 L/m and an FiO2 of 90%. He's not receiving any IV fluids. A chest x-ray is ordered for March 27. The only lab today with a glucose of 111. Clinically, the patient's doing about the same. Blood cultures are currently negative. Objective - Vital Signs Vital signs: Vital Signs Temp 98.5 F 03/26/23 11:19 Pulse 121 H 03/26/23 11:19 Resp 31 H 03/26/23 11:19 BP 150/86 03/26/23 11:19 Pulse Ox 89 L 03/26/23 11:19 FiO2 90 03/26/23 11:19 Intake & Output 03/25/23 03/26/23 03/26/23 18:59 06:59 18:59 Intake Total 110 240 120 Output Total 650 1125 Balance -540 -885 120 Intake: Oral 110 240 120 Output: Urine 650 1125 Other: Voiding Method Urinal # Voids 1 - Exam No acute distress, oriented 3. The patient is currently on AIRVO, at 60 L/m with an FiO2 of 90%. HEENT examination is grossly unremarkable. Neck supple. Full range of motion. No adenopathy thyromegaly or neck vein distention. Cardiovascular examination reveals regular rhythm rate. S1-S2 normal. No S3 or S4. No discernible murmur noted. Heart rate 94 beats per sounds are distant. Lungs reveal scattered rhonchi, with a few scattered bibasilar crackles. No wheezes. Breath sounds are equal bilaterally. Saturations are 93%. He is currently on AIRVO, at 60 L/m, with an FiO2 of 90%. Abdomen soft bowel sounds are heard. No masses or tenderness. Extremities are intact. No cyanosis clubbing or edema. Skin is without rash or lesion. Neurologic examination is brief but nonfocal. - Labs CBC & Chem 7: 03/24/23 08:17 03/24/23 08:17 Labs: Abnormal Lab Results - Last 24 Hours (Table) 03/25/23 03/26/23 Range/Units 16:33 11:44 POC Glucose (mg/dL) 162 H 111 H (70-110) mg/dL Microbiology - Last 24 Hours (Table) 03/23/23 19:35 Blood Culture - Preliminary Blood 03/23/23 19:20 Blood Culture - Preliminary Blood Assessment and Plan Assessment: Acute hypoxemic respiratory failure secondary to recurrent/persistent left lower lobe pneumonia. Chest x-ray on arrival demonstrates worsening opacities within the left mid and lower lung zones compared to his recent imaging. There was also suspected right lower lung atelectasis, and trace to small bilateral pleural effusions. Also, did test positive for COVID-19, possibly an incidental finding. Leukocytosis, secondary to above. Acute COPD exacerbation, secondary to above. Recent diagnosis of metastatic pulmonary adenocarcinoma based on pleural fluid cytology from a left-sided thoracentesis 03/11/23. History of right apical lung nodule measuring 10 by 7 mm June,. Benign essential hypertension. Hyperlipidemia. GERD. Chronic ongoing tobacco dependence. Plan: Plan dated 03/25/2023. The patient's labs, x-rays, and medications are all reviewed. The patient goes between BiPAP, in the AIRVO, for respiratory support. He is currently a full code. The patient's antibiotics and other medications will be continued. Oncology will be consulted. The patient will continue with DVT and GI prophylaxis. The patient's overall prognosis remains very guarded given all of his medical issues. We will continue to follow make recommendations along the way. The patient remains on antibiotics. Plan dated 03/26/2023. The patient is seen today in room 368. The patient remains on AIRVO at the current time, at 60 L/m, with an FiO2 of 90%. The patient remains a full code. A chest x-ray will be ordered for March 27. Labs, x-rays, and medications are reviewed. The patient remains on albuterol, Symbicort, and Decadron, and the patient's also on vitamin C, vitamin D3, and zinc. We will continue to follow make recommendations along the way. Prognosis is guarded. Time with Patient: Less than 30
--- NOTE | 2023-03-26 13:42 | P.PN ---
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 Maintained on covid cocktail.Currently maintaining O2 sats in the 90s on airvo flow 60 and Fio2 90. BiPAP at bedside. Reports fatigue, weakness. Afebrile. Pro-calcitonin 0.06. Preliminary blood cultures reporting no growth after 24 hours. Denies chest pain, palpitations. 03/26/2023 maintained on airvo, 60 L FIO2 90%, maintaining O2 sats in the high 80s to low 90s. Mild anxiety. Denies chest pain, palpitations. Afebrile. Preliminary blood cultures reporting no growth after 48 hours. Objective - Vital Signs Vital signs: Vital Signs Temp 98.5 F 03/26/23 11:19 Pulse 121 H 03/26/23 11:19 Resp 31 H 03/26/23 11:19 BP 150/86 03/26/23 11:19 Pulse Ox 89 L 03/26/23 11:19 FiO2 93 03/26/23 12:12 Intake & Output 03/25/23 03/26/23 03/26/23 18:59 06:59 18:59 Intake Total 110 240 120 Output Total 650 1125 Balance -540 -885 120 Intake: Oral 110 240 120 Output: Urine 650 1125 Other: Voiding Method Urinal # Voids 1 - Exam General: Patient awake, alert and oriented times 3. wearing AIrvo, mild anxiety. HEENT: PERRL. EOMI. Neck: supple,No adenopathy. Cardiac: Regular S1 and S2. No S3. No S4. No clicks, rubs. No murmur. Lungs: Increased respiratory effort .diminished breath sounds bilaterally left worse than right with scattered rhonchi Abdomen: Soft, nontender, no guarding. Bowel sounds presnt and normoactive in all 4 quadrants. Extremes: [No edema no cyanosis no claudication normal pulses] Skin: [No rash.] Neurologic: [No lateralizing deficits. CN II - XII grossly intact.] - Labs CBC & Chem 7: 03/24/23 08:17 03/24/23 08:17 Labs: Abnormal Lab Results - Last 24 Hours (Table) 03/25/23 03/26/23 Range/Units 16:33 11:44 POC Glucose (mg/dL) 162 H 111 H (70-110) mg/dL Microbiology - Last 24 Hours (Table) 03/23/23 19:35 Blood Culture - Preliminary Blood 03/23/23 19:20 Blood Culture - Preliminary Blood Assessment and Plan Assessment: Assessment and Plan (1) Acute respiratory failure with hypoxia Current Visit: Yes Status: Acute Code(s): J96.01 - ACUTE RESPIRATORY FAILURE WITH HYPOXIA SNOMED Code(s): 82169084 (2) COPD (chronic obstructive pulmonary disease) Current Visit: Yes Status: Acute Code(s): J44.9 - CHRONIC OBSTRUCTIVE PULMONARY DISEASE, UNSPECIFIED SNOMED Code(s): 12091287 (3) COVID-19 Current Visit: Yes Status: Acute Code(s): U07.1 - COVID-19 SNOMED Code(s): 508108584 (4) Pneumonia Current Visit: Yes Status: Acute Code(s): J18.9 - PNEUMONIA, UNSPECIFIED ORGANISM SNOMED Code(s): 513661607 (5) Acute and chronic respiratory failure ([id number]) Current Visit: No Status: Acute Code(s): J96.20 - ACUTE AND CHR RESP FAILURE, UNSP W HYPOXIA OR HYPERCAPNIA SNOMED Code(s): 63028548 (6) Adenocarcinoma of lung Current Visit: No Status: Acute Priority: High Code(s): C34.90 - MALIGNANT NEOPLASM OF UNSP PART OF UNSP BRONCHUS OR LUNG SNOMED Code(s): 489418159 (7) Atherosclerosis of abdominal aorta Current Visit: No Status: Acute Code(s): I70.0 - ATHEROSCLEROSIS OF AORTA SNOMED Code(s): 430771850 Plan: Continue on current medication regime ,monitoring and symptomatic treatment.COVID COCKtail. Xanax for anxiety, prn. Medi Boots ordered. Blood cultures in progress. Prognosis guarded given multiple complex medical issues. The impression and plan of care has been dictated as directed. : I performed a history and examination of this patient, discussed the same with the dictator. I agree with the dictator's note ,documented as a scribe. Any additional findings or plans will be noted.
[2023-03-26 18:05] LABS: Glucose,Whole Blood 154 mg/dL (70-110)
[2023-03-26] MEDS: ALPRAZolam 0.25 MG TAB PO PRN (18:16)
[2023-03-26] MEDS: ATORVASTATIN 20 MG TAB PO SCH (22:01)
[2023-03-27] MEDS: ALBUTEROL HFA INHALER INHALATION SCH ×7 (00:05→23:16)
[2023-03-27] MEDS: HEPARIN SODIUM,PORCINE 5,000 UNIT/ML 1 ML VIAL SQ SCH ×3 (00:06→17:26)
[2023-03-27 06:13] LABS: Glucose,Whole Blood 90 mg/dL (70-110)
--- NOTE | 2023-03-27 07:55 | XR ---
EXAMINATION TYPE: XR chest 1V portable DATE OF EXAM: 03/27/2023 Comparison: 03/24/2023 Clinical History: 73-year-old male CoVID pneumonia Findings: Partially visualized reverse right shoulder arthroplasty. Heart mildly enlarged. Right-sided rib frac ture deformities redemonstrated. Bilateral pleural-parenchymal opacities, left greater than right per sist. There may be slight improvement at the right base. Impression: Ongoing bilateral pleural parenchymal opacities, left greater than right. There may be slight improve ment now at the right base.
[2023-03-27] MEDS: SYMBICORT 160-4.5 MCG INHALER INHALATION SCH ×2 (08:16→20:36)
[2023-03-27 08:41] LABS: Basophils % (A) 0 %; Eosinophils # (A) 0.1 k/uL (0-0.7); Eosinophils % (A) 1 %; HCT 46.2 % (39.0-53.0); HGB 14.8 gm/dL (13.0-17.5); Hypochromasia Slight; Lymphocytes # (A) 0.4 k/uL (1.0-4.8); Lymphocytes % (A) 2 %; MCH 29.7 pg (25.0-35.0); MCHC 31.9 g/dL (31.0-37.0); MCV 92.9 fL (80.0-100.0); Mean Platelet Volume 9.6; Monocytes # (A) 0.4 k/uL (0-1.0); Monocytes % (A) 2 %; Neutrophils # (A) 17.5 k/uL (1.3-7.7); Neutrophils % (A) 94 %; Platelet Count 168 k/uL (150-450); RBC 4.98 m/uL (4.30-5.90); RDW 14.3 % (11.5-15.5); WBC 18.6 k/uL (3.8-10.6)
[2023-03-27 09:19] LABS: African American GFR (CKD) >90 (>60 ml/min/1.73 sqM); Anion Gap 4 mmol/L; Blood Urea Nitrogen 18 mg/dL (9-20); Calcium 8.8 mg/dL (8.4-10.2); Carbon Dioxide 39 mmol/L (22-30); Chloride 96 mmol/L (98-107); Glucose 83 mg/dL (74-99); Non-African American GFR(CKD) >90 (>60 ml/min/1.73 sqM); Potassium 4.6 mmol/L (3.5-5.1); Sodium 139 mmol/L (137-145)
[2023-03-27] MEDS: DEXAMETHASONE SOD PHOSPHATE 10 MG/ML 1 ML VIAL IVP SCH (09:20)
[2023-03-27] MEDS: BISOPROLOL-HCTZ 5-6.25 MG 1 EACH TAB PO SCH (09:21)
[2023-03-27] MEDS: lisinopriL 20 MG TAB PO SCH (09:21)
[2023-03-27] MEDS: CHOLECALCIFEROL 25 MCG (1000 IU) TABLET PO SCH (09:21)
[2023-03-27] MEDS: ASCORBIC ACID 500 MG TAB PO SCH (09:21)
[2023-03-27] MEDS: amLODIPine 10 MG TAB PO SCH (09:21)
[2023-03-27] MEDS: ZINC SULFATE 220 MG CAP PO SCH (09:21)
[2023-03-27] MEDS: FAMOTIDINE 20 MG TAB PO SCH (09:21)
[2023-03-27] MEDS: PANTOPRAZOLE 40 MG TABLET PO SCH (09:21)
[2023-03-27 11:43] LABS: Glucose,Whole Blood 102 mg/dL (70-110)
--- NOTE | 2023-03-27 12:49 | P.PN ---
Subjective Progress Note Date: 03/27/23 Principal diagnosis: Hypoxemic respiratory failure. I am seeing this patient in new consultation today 03/24/2023 for suspected left lower lobe pneumonia. Patient is a 73-year-old white male with past medical history significant for recent admission with left lower lobe pneumonia, discharged on March 17. During this admission, the patient was also found to have metastatic adenocarcinoma of the lung based on pleural fluid cytology from a left sided thoracentesis. He also has history of COPD, hypertension, hyperlipidemia, GERD, and ongoing chronic tobacco dependence. Patient is known to have a 10 mm x 7mm right upper lung nodule, originally seen back in June,. His PCP is Dr. Nichols. Chest CT from his most recent admission, March 07, demonstrated a right upper lung bronchus large airway occlusion concerning for obstructive mass. There was also a loculated left pleural effusion with left lung consolidation. The patient was treated with IV antibiotics and discharged home on Augmentin. He was established with an oncologist, and is reportedly going to undergo a PET scan outpatient. Patient returned to the emergency room last night, reporting that he's had ongoing progressively worsening shortness of breath since discharge. He admits an associated nonproductive cough. Denies any fever, chills, myalgias, hemoptysis. Denies any chest pain, palpitations, lower extremity edema, syncope. A chest x-ray done on arrival, showed worsening airspace opacities within the left mid and lower lung zones compared to prior imaging. There was also suspected right lower lung atelectasis, and trace to small bilateral pleural effusions. Patient did test positive for COVID-19, possibly an incidental finding. Patient is currently sitting up in bed, on BiPAP with settings 12/6 and FiO2 of 60%. Appears fairly comfortable. Respiratory rate is high 20s to low 30s and is achieving tidal volumes around 400. CBC on arrival shows leukocytosis with WBC count of 16.9, hemoglobin 14.7, hematocrit 45.4, platelets 150. BMP shows sodium 133, potassium 4.1, chloride 92, serum bicarbonate 39, BUN 17, creatinine 0.43, glucose 99. Currently receiving normal saline at 100 ML's per hour. He was started on empiric Zosyn and azithromycin. Currently afebrile. Also receiving Ventolin HFA, Symbicort inhaler, and IV Decadron. Patient is being monitored closely on the cardiac stepdown unit. Progress note dated 03/25/2023. 73-year-old male admitted on March 24, with a diagnosis of possible left lower lobe pneumonia, and hypoxemic respiratory failure. Currently, the patient is on BiPAP, with settings of 12/6, and 70%. He has no IV fluids running at this time. He did test positive for coronavirus. He does have a history of lung cancer, adenocarcinoma. The only labs today include glucose of 110. Chest x-ray from March 24, shows a small to moderate-sized left pleural effusion, with increased small right pleural effusion. There is also some right lower lung consolidation. Progress note dated 03/26/2023. 73-year-old male admitted on March 24, with a diagnosis of possible left lower lobe pneumonia and hypoxemic respiratory failure. The patient is currently on AIRVO, with settings of 60 L/m and an FiO2 of 90%. He's not receiving any IV fluids. A chest x-ray is ordered for March 27. The only lab today with a glucose of 111. Clinically, the patient's doing about the same. Blood cultures are currently negative. Progress note dated 03/27/2023. The patient is seen today in room 368. He continues on AIRVO, with settings of 60 L/m, with an FiO2 of 90%. The chest x-ray done today, shows worsening infiltrates. Clinically, the patient appears reasonably stable. White count 18.6, hemoglobin 10.8, hematocrit 46.2, and platelet count was normal. Sodium 139, potassium 4.6, chlorides 96, CO2 39, BUN 18, and creatinine 0.48. Blood cultures are negative. Chest x-ray shows bilateral pleural/parenchymal opacities, left greater than right. Radiologist feels there may be some improvement. Objective - Vital Signs Vital signs: Vital Signs Temp 98 F 03/27/23 12:00 Pulse 89 03/27/23 12:00 Resp 26 H 03/27/23 12:00 BP 120/69 03/27/23 12:00 Pulse Ox 88 L 03/27/23 03:51 FiO2 90 03/27/23 11:35 Intake & Output 03/26/23 03/27/23 03/27/23 18:59 06:59 18:59 Intake Total 120 Output Total 900 300 Balance -780 -300 Intake: Oral 120 Output: Urine 900 300 Other: Voiding Method Urinal Urinal # Voids 1 - Exam No acute distress, oriented 3. The patient is currently on AIRVO, at 60 L/m with an FiO2 of 90%. HEENT examination is grossly unremarkable. Neck supple. Full range of motion. No adenopathy thyromegaly or neck vein distention. Cardiovascular examination reveals regular rhythm rate. S1-S2 normal. No S3 or S4. No discernible murmur noted. Heart rate 89 beats per sounds are distant. Lungs reveal scattered rhonchi, with a few scattered bibasilar crackles. No wheezes. Breath sounds are equal bilaterally. Saturations are 93%. He is currently on AIRVO, at 60 L/m, with an FiO2 of 90%. Abdomen soft bowel sounds are heard. No masses or tenderness. Extremities are intact. No cyanosis clubbing or edema. Skin is without rash or lesion. Neurologic examination is brief but nonfocal. - Labs CBC & Chem 7: 03/27/23 07:38 03/27/23 07:38 Labs: Abnormal Lab Results - Last 24 Hours (Table) 03/26/23 03/27/23 03/27/23 Range/Units 16:57 07:38 07:38 WBC 18.6 H (3.8-10.6) k/uL Neutrophils # 17.5 H (1.3-7.7) k/uL Lymphocytes # 0.4 L (1.0-4.8) k/uL Chloride 96 L (98-107) mmol/L Carbon Dioxide 39 H (22-30) mmol/L Creatinine 0.48 L (0.66-1.25) mg/dL POC Glucose (mg/dL) 154 H (70-110) mg/dL Microbiology - Last 24 Hours (Table) 03/23/23 19:35 Blood Culture - Preliminary Blood 03/23/23 19:20 Blood Culture - Preliminary Blood Assessment and Plan Assessment: Acute hypoxemic respiratory failure secondary to recurrent/persistent left lower lobe pneumonia. Chest x-ray on arrival demonstrates worsening opacities within the left mid and lower lung zones compared to his recent imaging. There was also suspected right lower lung atelectasis, and trace to small bilateral pleural ef fusions. Also, did test positive for COVID-19, possibly an incidental finding. Leukocytosis, secondary to above. Acute COPD exacerbation, secondary to above. Recent diagnosis of metastatic pulmonary adenocarcinoma based on pleural fluid cytology from a left-sided thoracentesis 03/11/23. History of right apical lung nodule measuring 10 by 7 mm June,. Benign essential hypertension. Hyperlipidemia. GERD. Chronic ongoing tobacco dependence. Plan: Plan dated 03/25/2023. The patient's labs, x-rays, and medications are all reviewed. The patient goes between BiPAP, in the AIRVO, for respiratory support. He is currently a full code. The patient's antibiotics and other medications will be continued. Oncology will be consulted. The patient will continue with DVT and GI prophylaxis. The patient's overall prognosis remains very guarded given all of his medical issues. We will continue to follow make recommendations along the way. The patient remains on antibiotics. Plan dated 03/26/2023. The patient is seen today in room 368. The patient remains on AIRVO at the current time, at 60 L/m, with an FiO2 of 90%. The patient remains a full code. A chest x-ray will be ordered for March 27. Labs, x-rays, and medications are reviewed. The patient remains on albuterol, Symbicort, and Decadron, and the patient's also on vitamin C, vitamin D3, and zinc. We will continue to follow make recommendations along the way. Prognosis is guarded. Plan dated 03/27/2023. The patient is seen again in room 368. Clinically, he appears relatively stable, even though he is on AIRVO and 60 L/m, with an FiO2 of 90%. The patient remains a full code. Labs, x-rays, medications are reviewed. The patient continues on appropriate medications including albuterol inhaler, Symbicort inhaler, Decadron, vitamin C, vitamin D3, and zinc. Additional recommendations and suggestions are forthcoming. Prognosis is guarded. The chest x-ray, according to the radiologist, may be slightly improved. Time with Patient: Less than 30
--- NOTE | 2023-03-27 13:19 | P.PN ---
Subjective Progress Note Date: 03/27/23 Principal diagnosis: COVID Reports improvement in breathing today, but persisting SOB, continues on Airvo, SPO2 92%. Patient remains afebrile. Objective - Vital Signs Vital signs: Vital Signs Temp 98 F 03/27/23 12:00 Pulse 89 03/27/23 12:00 Resp 26 H 03/27/23 12:00 BP 120/69 03/27/23 12:00 Pulse Ox 88 L 03/27/23 03:51 FiO2 90 03/27/23 11:35 Intake & Output 03/26/23 03/27/23 03/27/23 18:59 06:59 18:59 Intake Total 120 Output Total 900 300 Balance -780 -300 Intake: Oral 120 Output: Urine 900 300 Other: Voiding Method Urinal Urinal # Voids 1 - Constitutional General appearance: Present: average body habitus, no acute distress - EENT Eyes: Present: anicteric sclerae, EOMI ENT: Present: hearing grossly normal - Respiratory Details: breathing mildly labored - Cardiovascular Details: skin warm and dry - Integumentary Integumentary: Absent: cyanotic - Musculoskeletal Musculoskeletal: Present: generalized weakness - Psychiatric Psychiatric: Present: A&O x's 3, appropriate affect, intact judgment & insight - Labs CBC & Chem 7: 03/27/23 07:38 03/27/23 07:38 Labs: Abnormal Lab Results - Last 24 Hours (Table) 03/26/23 03/27/23 03/27/23 Range/Units 16:57 07:38 07:38 WBC 18.6 H (3.8-10.6) k/uL Neutrophils # 17.5 H (1.3-7.7) k/uL Lymphocytes # 0.4 L (1.0-4.8) k/uL Chloride 96 L (98-107) mmol/L Carbon Dioxide 39 H (22-30) mmol/L Creatinine 0.48 L (0.66-1.25) mg/dL POC Glucose (mg/dL) 154 H (70-110) mg/dL Microbiology - Last 24 Hours (Table) 03/23/23 19:35 Blood Culture - Preliminary Blood 03/23/23 19:20 Blood Culture - Preliminary Blood Assessment and Plan (1) COVID-19 Current Visit: Yes Status: Acute Priority: High Code(s): U07.1 - COVID-19 SNOMED Code(s): 270246888 (2) Adenocarcinoma of lung Current Visit: Yes Status: Acute Priority: High Code(s): C34.90 - MALIGNANT NEOPLASM OF UNSP PART OF UNSP BRONCHUS OR LUNG SNOMED Code(s): 767487358 Plan: #Acute on chronic hypoxic respiratory failure secondary to COVID-19 superimposed on COPD -Continues on IV dexamethasone and zinc. Completed course of antibiotics -Was previously on BiPAP this admission, currently on high flow nasal cannula. SPO2 92%. 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
--- NOTE | 2023-03-27 13:34 | P.PN ---
Subjective Progress Note Date: 03/27/23 H&P Date: 03/24/23 Chief Complaint: shortness of breath Mister Rhodes is a 73-year-old male well-known to the practice, recently diagnosed with bronchogenic carcinoma of the lung, presented to [place] emergency room with shortness of breath, and positive for Covid, patient also demonstrating a left sided infiltrate is currently on BiPAP steroid-dependent O2 dependent BiPAP dependent lung disease long-standing smoker essentially quit approximately 2 weeks ago This is 73-year-old gentleman with recently diagnosed adenocarcinoma of lung, admitted with acute COVID-19 infection, hypoxic respiratory failure and multiple other medical issues. Maintained on covid cocktail.Currently maintaining O2 sats in the 90s on airvo flow 60 and Fio2 90. BiPAP at bedside. Reports fatigue, weakness. Afebrile. Pro-calcitonin 0.06. Preliminary blood cultures reporting no growth after 24 hours. Denies chest pain, palpitations. 03/26/2023 maintained on airvo, 60 L FIO2 90%, maintaining O2 sats in the high 80s to low 90s. Mild anxiety. Denies chest pain, palpitations. Afebrile. Preliminary blood cultures reporting no growth after 48 hours. 03/27/2023 Feels better this morning. Received Xanax last night, rested better. Continues on Airvo 60 L, FiO2 90% and maintaining O2 sats in the high 80s to low 90s. Chest x-ray reporting ongoing bilateral pleural personal opacity slough greater than right, possibly slight improvement right base. These Bicarb 39, BUN 18, creatinine 0.48. Hemoglobin 14.8, platelets 168. Preliminary blood cultures reporting no growth after 72 hours. Afebrile. 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 Blood sugars controlled. Objective - Vital Signs Vital signs: Vital Signs Temp 98 F 03/27/23 12:00 Pulse 89 03/27/23 12:00 Resp 26 H 03/27/23 12:00 BP 120/69 03/27/23 12:00 Pulse Ox 88 L 03/27/23 03:51 FiO2 90 03/27/23 11:35 Intake & Output 03/26/23 03/27/23 03/27/23 18:59 06:59 18:59 Intake Total 120 Output Total 900 300 Balance -780 -300 Intake: Oral 120 Output: Urine 900 300 Other: Voiding Method Urinal Urinal # Voids 1 - Exam General: Patient awake, alert and oriented times 3. wearing AIrvo. HEENT: PERRL. EOMI. Neck: supple,No adenopathy. Cardiac: Regular S1 and S2. No S3. No S4. No clicks, rubs. No murmur. Lungs: Increased respiratory effort .Diminished bilateral breath sounds, scattered rhonchi. Abdomen: Soft, nontender, no guarding. Bowel sounds present and normoactive in all 4 quadrants. Extremes: [No edema no cyanosis no claudication normal pulses, wearing medi boots.] Skin: [No rash, warm and dry.] Neurologic: [No lateralizing deficits. CN II - XII grossly intact.] - Labs CBC & Chem 7: 03/27/23 07:38 03/27/23 07:38 Labs: Abnormal Lab Results - Last 24 Hours (Table) 03/26/23 03/27/23 03/27/23 Range/Units 16:57 07:38 07:38 WBC 18.6 H (3.8-10.6) k/uL Neutrophils # 17.5 H (1.3-7.7) k/uL Lymphocytes # 0.4 L (1.0-4.8) k/uL Chloride 96 L (98-107) mmol/L Carbon Dioxide 39 H (22-30) mmol/L Creatinine 0.48 L (0.66-1.25) mg/dL POC Glucose (mg/dL) 154 H (70-110) mg/dL Microbiology - Last 24 Hours (Table) 03/23/23 19:35 Blood Culture - Preliminary Blood 03/23/23 19:20 Blood Culture - Preliminary Blood Assessment and Plan Assessment: Assessment and Plan (1) Acute respiratory failure with hypoxia Current Visit: Yes Status: Acute Code(s): J96.01 - ACUTE RESPIRATORY FAILURE WITH HYPOXIA SNOMED Code(s): 51057352 (2) COPD (chronic obstructive pulmonary disease) Current Visit: Yes Status: Acute Code(s): J44.9 - CHRONIC OBSTRUCTIVE PULMONARY DISEASE, UNSPECIFIED SNOMED Code(s): 29069502 (3) COVID-19 Current Visit: Yes Status: Acute Code(s): U07.1 - COVID-19 SNOMED Code(s): 313200828 (4) Pneumonia Current Visit: Yes Status: Acute Code(s): J18.9 - PNEUMONIA, UNSPECIFIED ORGANISM SNOMED Code(s): 920513747 (5) Acute and chronic respiratory failure ([id number]) Current Visit: No Status: Acute Code(s): J96.20 - ACUTE AND CHR RESP FAILURE, UNSP W HYPOXIA OR HYPERCAPNIA SNOMED Code(s): 92333649 (6) Adenocarcinoma of lung Current Visit: No Status: Acute Priority: High Code(s): C34.90 - MALIGNANT NEOPLASM OF UNSP PART OF UNSP BRONCHUS OR LUNG SNOMED Code(s): 323207304 (7) Atherosclerosis of abdominal aorta Current Visit: No Status: Acute Code(s): I70.0 - ATHEROSCLEROSIS OF AORTA SNOMED Code(s): 416885791 Plan: Continue on current medication regime ,monitoring and symptomatic treatment.COVID COCKtail. Maintain supportive care. Prognosis guarded given multiple complex medical issues. The impression and plan of care has been dictated as directed. : I performed a history and examination of this patient, discussed the same with the dictator. I agree with the dictator's note ,documented as a scribe. Any additional findings or plans will be noted.
[2023-03-27 16:38] LABS: Glucose,Whole Blood 96 mg/dL (70-110)
[2023-03-27] MEDS: ATORVASTATIN 20 MG TAB PO SCH (20:01)
[2023-03-27 20:02] LABS: Glucose,Whole Blood 112 mg/dL (70-110)
[2023-03-28] MEDS: HEPARIN SODIUM,PORCINE 5,000 UNIT/ML 1 ML VIAL SQ SCH ×3 (03:21→16:45)
[2023-03-28] MEDS: ALBUTEROL HFA INHALER INHALATION SCH ×5 (04:16→21:30)
[2023-03-28 06:18] LABS: Glucose,Whole Blood 89 mg/dL (70-110)
[2023-03-28] MEDS: PANTOPRAZOLE 40 MG TABLET PO SCH (06:45)
--- NOTE | 2023-03-28 08:44 | P.PN ---
Subjective Progress Note Date: 03/28/23 H&P Date: 03/24/23 Chief Complaint: shortness of breath Mister Rhodes is a 73-year-old male well-known to the practice, recently diagnosed with bronchogenic carcinoma of the lung, presented to [place] emergency room with shortness of breath, and positive for Covid, patient also demonstrating a left sided infiltrate is currently on BiPAP steroid-dependent O2 dependent BiPAP dependent lung disease long-standing smoker essentially quit approximately 2 weeks ago This is 73-year-old gentleman with recently diagnosed adenocarcinoma of lung, admitted with acute COVID-19 infection, hypoxic respiratory failure and multiple other medical issues. Maintained on covid cocktail.Currently maintaining O2 sats in the 90s on airvo flow 60 and Fio2 90. BiPAP at bedside. Reports fatigue, weakness. Afebrile. Pro-calcitonin 0.06. Preliminary blood cultures reporting no growth after 24 hours. Denies chest pain, palpitations. 03/26/2023 maintained on airvo, 60 L FIO2 90%, maintaining O2 sats in the high 80s to low 90s. Mild anxiety. Denies chest pain, palpitations. Afebrile. Preliminary blood cultures reporting no growth after 48 hours. 03/27/2023 Feels better this morning. Received Xanax last night, rested better. Continues on Airvo 60 L, FiO2 90% and maintaining O2 sats in the high 80s to low 90s. Chest x-ray reporting ongoing bilateral pleural personal opacity slough greater than right, possibly slight improvement right base. These Bicarb 39, BUN 18, creatinine 0.48. Hemoglobin 14.8, platelets 168. Preliminary blood cultures reporting no growth after 72 hours. Afebrile. 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 Blood sugars controlled. 03/28/2023 maintained on Airvo 60 L, FiO2 90%, O2 sats fluctuates from high 80s to high 90s. Diet intake poor, consumed 25% of breakfast. Denies nausea, vomiting. Denies abdominal pain. Continues on COvid Cocktail. Afebrile. Preliminary blood cultures reporting no growth after 72 hours. Feels discouraged . Objective - Vital Signs Vital signs: Vital Signs Temp 98.0 F 03/28/23 00:55 Pulse 98 03/28/23 05:07 Resp 28 H 03/28/23 05:07 BP 138/82 03/28/23 05:07 Pulse Ox 87 L 03/28/23 05:07 FiO2 89 03/28/23 05:07 Intake & Output 03/27/23 03/28/23 03/28/23 18:59 06:59 18:59 Output Total 300 325 350 Balance -300 -325 -350 Output: Urine 300 325 350 Other: Voiding Method Urinal Urinal # Voids 1 - Exam General: Patient awake, alert and oriented times 3. wearing AIrvo. Fatigued. HEENT: Normocephalic, PERRL. EOMI. Neck: supple,No JVD. Cardiac: Regular S1 and S2. No S3. No S4. No clicks, rubs. No murmur. Lungs: Increased respiratory effort .Diminished bilateral breath sounds, scattered rhonchi. Abdomen: Soft, nontender, no guarding. Bowel sounds present and normoactive in all 4 quadrants. Extremes: [Positive edema ,edema no cyanosis no claudication normal pulses, wearing medi boots.] Skin: [No rash, warm and dry.] Neurologic: [No lateralizing deficits. CN II - XII grossly intact.] - Labs CBC & Chem 7: 03/27/23 07:38 03/27/23 07:38 Labs: Abnormal Lab Results - Last 24 Hours (Table) 03/27/23 03/27/23 03/27/23 Range/Units 07:38 07:38 20:00 WBC 18.6 H (3.8-10.6) k/uL Neutrophils # 17.5 H (1.3-7.7) k/uL Lymphocytes # 0.4 L (1.0-4.8) k/uL Chloride 96 L (98-107) mmol/L Carbon Dioxide 39 H (22-30) mmol/L Creatinine 0.48 L (0.66-1.25) mg/dL POC Glucose (mg/dL) 112 H (70-110) mg/dL Assessment and Plan Assessment: Assessment and Plan (1) Acute respiratory failure with hypoxia Current Visit: Yes Status: Acute Code(s): J96.01 - ACUTE RESPIRATORY FAILURE WITH HYPOXIA SNOMED Code(s): 77783398 (2) COPD (chronic obstructive pulmonary disease) Current Visit: Yes Status: Acute Code(s): J44.9 - CHRONIC OBSTRUCTIVE PULMONARY DISEASE, UNSPECIFIED SNOMED Code(s): 99413773 (3) COVID-19 Current Visit: Yes Status: Acute Code(s): U07.1 - COVID-19 SNOMED Code(s): 349210736 (4) Pneumonia Current Visit: Yes Status: Acute Code(s): J18.9 - PNEUMONIA, UNSPECIFIED ORGANISM SNOMED Code(s): 905571997 (5) Acute and chronic respiratory failure ([id number]) Current Visit: No Status: Acute Code(s): J96.20 - ACUTE AND CHR RESP FAILURE, UNSP W HYPOXIA OR HYPERCAPNIA SNOMED Code(s): 21705504 (6) Adenocarcinoma of lung Current Visit: No Status: Acute Priority: High Code(s): C34.90 - MALIGNANT NEOPLASM OF UNSP PART OF UNSP BRONCHUS OR LUNG SNOMED Code(s): 114823047 (7) Atherosclerosis of abdominal aorta Current Visit: No Status: Acute Code(s): I70.0 - ATHEROSCLEROSIS OF AORTA SNOMED Code(s): 799737023 Plan: Continue on current medication regime ,monitoring and symptomatic treatment.continues on Airvo, diet intake poor .[place] supplementation/Magic cups ordered .Gentle IV fluid hydration, currently D5/NS as blood sugars trending down into the high 80s. Dietitian consulted. Protect skin integrity- turn every 2 hours and maintain medi boots.COVID COCKtail.Lexapro added to med regimen.Maintain supportive care. Prognosis guarded given multiple complex medical issues. The impression and plan of care has been dictated as directed. : I performed a history and examination of this patient, discussed the same with the dictator. I agree with the dictator's note ,documented as a scribe. Any additional findings or plans will be noted.
[2023-03-28] MEDS: SYMBICORT 160-4.5 MCG INHALER INHALATION SCH ×2 (09:18→21:31)
[2023-03-28] MEDS: ZINC SULFATE 220 MG CAP PO SCH (09:28)
[2023-03-28] MEDS: FAMOTIDINE 20 MG TAB PO SCH (09:28)
[2023-03-28] MEDS: lisinopriL 20 MG TAB PO SCH (09:28)
[2023-03-28] MEDS: amLODIPine 10 MG TAB PO SCH (09:28)
[2023-03-28] MEDS: CHOLECALCIFEROL 25 MCG (1000 IU) TABLET PO SCH (09:28)
[2023-03-28] MEDS: DEXAMETHASONE SOD PHOSPHATE 10 MG/ML 1 ML VIAL IVP SCH (09:28)
[2023-03-28] MEDS: ASCORBIC ACID 500 MG TAB PO SCH (09:28)
[2023-03-28] MEDS: BISOPROLOL-HCTZ 5-6.25 MG 1 EACH TAB PO SCH (09:28)
[2023-03-28 10:24] VITALS: BMI 24.2
--- NOTE | 2023-03-28 11:52 | P.PN ---
Subjective Progress Note Date: 03/28/23 Principal diagnosis: Hypoxemic respiratory failure. I am seeing this patient in new consultation today 03/24/2023 for suspected left lower lobe pneumonia. Patient is a 73-year-old white male with past medical history significant for recent admission with left lower lobe pneumonia, discharged on March 17. During this admission, the patient was also found to have metastatic adenocarcinoma of the lung based on pleural fluid cytology from a left sided thoracentesis. He also has history of COPD, hypertension, hyperlipidemia, GERD, and ongoing chronic tobacco dependence. Patient is known to have a 10 mm x 7mm right upper lung nodule, originally seen back in June,. His PCP is Dr. Nichols. Chest CT from his most recent admission, March 07, demonstrated a right upper lung bronchus large airway occlusion concerning for obstructive mass. There was also a loculated left pleural effusion with left lung consolidation. The patient was treated with IV antibiotics and discharged home on Augmentin. He was established with an oncologist, and is reportedly going to undergo a PET scan outpatient. Patient returned to the emergency room last night, reporting that he's had ongoing progressively worsening shortness of breath since discharge. He admits an associated nonproductive cough. Denies any fever, chills, myalgias, hemoptysis. Denies any chest pain, palpitations, lower extremity edema, syncope. A chest x-ray done on arrival, showed worsening airspace opacities within the left mid and lower lung zones compared to prior imaging. There was also suspected right lower lung atelectasis, and trace to small bilateral pleural effusions. Patient did test positive for COVID-19, possibly an incidental finding. Patient is currently sitting up in bed, on BiPAP with settings 12/6 and FiO2 of 60%. Appears fairly comfortable. Respiratory rate is high 20s to low 30s and is achieving tidal volumes around 400. CBC on arrival shows leukocytosis with WBC count of 16.9, hemoglobin 14.7, hematocrit 45.4, platelets 150. BMP shows sodium 133, potassium 4.1, chloride 92, serum bicarbonate 39, BUN 17, creatinine 0.43, glucose 99. Currently receiving normal saline at 100 ML's per hour. He was started on empiric Zosyn and azithromycin. Currently afebrile. Also receiving Ventolin HFA, Symbicort inhaler, and IV Decadron. Patient is being monitored closely on the cardiac stepdown unit. Progress note dated 03/25/2023. 73-year-old male admitted on March 24, with a diagnosis of possible left lower lobe pneumonia, and hypoxemic respiratory failure. Currently, the patient is on BiPAP, with settings of 12/6, and 70%. He has no IV fluids running at this time. He did test positive for coronavirus. He does have a history of lung cancer, adenocarcinoma. The only labs today include glucose of 110. Chest x-ray from March 24, shows a small to moderate-sized left pleural effusion, with increased small right pleural effusion. There is also some right lower lung consolidation. Progress note dated 03/26/2023. 73-year-old male admitted on March 24, with a diagnosis of possible left lower lobe pneumonia and hypoxemic respiratory failure. The patient is currently on AIRVO, with settings of 60 L/m and an FiO2 of 90%. He's not receiving any IV fluids. A chest x-ray is ordered for March 27. The only lab today with a glucose of 111. Clinically, the patient's doing about the same. Blood cultures are currently negative. Progress note dated 03/27/2023. The patient is seen today in room 368. He continues on AIRVO, with settings of 60 L/m, with an FiO2 of 90%. The chest x-ray done today, shows worsening infiltrates. Clinically, the patient appears reasonably stable. White count 18.6, hemoglobin 10.8, hematocrit 46.2, and platelet count was normal. Sodium 139, potassium 4.6, chlorides 96, CO2 39, BUN 18, and creatinine 0.48. Blood cultures are negative. Chest x-ray shows bilateral pleural/parenchymal opacities, left greater than right. Radiologist feels there may be some improvement. Progress note dated 03/28/2023. This is a 74-year-old male seen in room 368. The patient continues on AIRVO, at 60 L/m, and an FiO2 of 90%. The patient does feel better. He's not receiving any IV fluids. Labs today include only a glucose of 89. As mentioned yesterday, the chest x-ray, as interpreted by the radiologist, suggests some improvement. Objective - Vital Signs Vital signs: Vital Signs Temp 97.9 F 03/28/23 11:46 Pulse 92 03/28/23 11:46 Resp 24 03/28/23 11:46 BP 125/68 03/28/23 11:46 Pulse Ox 88 L 03/28/23 11:46 FiO2 90 03/28/23 09:18 Intake & Output 03/27/23 03/28/23 03/28/23 18:59 06:59 18:59 Output Total 300 325 350 Balance -300 -325 -350 Weight 74.389 kg Output: Urine 300 325 350 Other: Voiding Method Urinal Urinal Urinal # Voids 1 - Exam No acute distress, oriented 3. The patient is currently on AIRVO, at 60 L/m with an FiO2 of 90%. HEENT examination is grossly unremarkable. Neck supple. Full range of motion. No adenopathy thyromegaly or neck vein distention. Cardiovascular examination reveals regular rhythm rate. S1-S2 normal. No S3 or S4. No discernible murmur noted. Heart rate 92 beats per sounds are distant. Lungs reveal scattered rhonchi, with a few scattered bibasilar crackles. No wheezes. Breath sounds are equal bilaterally. Saturations are 95% He is currently on AIRVO, at 60 L/m, with an FiO2 of 90%. Abdomen soft bowel sounds are heard. No masses or tenderness. Extremities are intact. No cyanosis clubbing or edema. Skin is without rash or lesion. Neurologic examination is brief but nonfocal. - Labs CBC & Chem 7: 03/27/23 07:38 03/27/23 07:38 Labs: Abnormal Lab Results - Last 24 Hours (Table) 03/27/23 Range/Units 20:00 POC Glucose (mg/dL) 112 H (70-110) mg/dL Assessment and Plan Assessment: Acute hypoxemic respiratory failure secondary to recurrent/persistent left lower lobe pneumonia. Chest x-ray on arrival demonstrates worsening opacities within the left mid and lower lung zones compared to his recent imaging. There was also suspected right lower lung atelectasis, and trace to small bilateral pleural effusions. Also, did test positive for COVID-19, possibly an incidental finding. Leukocytosis, secondary to above. Acute COPD exacerbation, secondary to above. Recent diagnosis of metastatic pulmonary adenocarcinoma based on pleural fluid cytology from a left-sided thoracentesis 03/11/23. History of right apical lung nodule measuring 10 by 7 mm June,. Benign essential hypertension. Hyperlipidemia. GERD. Chronic ongoing tobacco dependence. Plan: Plan dated 03/25/2023. The patient's labs, x-rays, and medications are all reviewed. The patient goes between BiPAP, in the AIRVO, for respiratory support. He is currently a full code. The patient's antibiotics and other medications will be continued. Oncology will be consulted. The patient will continue with DVT and GI prophylaxis. The patient's overall prognosis remains very guarded given all of his medical issues. We will continue to follow make recommendations along the way. The patient remains on antibiotics. Plan dated 03/26/2023. The patient is seen today in room 368. The patient remains on AIRVO at the current time, at 60 L/m, with an FiO2 of 90%. The patient remains a full code. A chest x-ray will be ordered for March 27. Labs, x-rays, and medications are reviewed. The patient remains on albuterol, Symbicort, and Decadron, and the patient's also on vitamin C, vitamin D3, and zinc. We will continue to follow make recommendations along the way. Prognosis is guarded. Plan dated 03/27/2023. The patient is seen again in room 368. Clinically, he appears relatively stable, even though he is on AIRVO and 60 L/m, with an FiO2 of 90%. The patient remains a full code. Labs, x-rays, medications are reviewed. The patient continues on appropriate medications including albuterol inhaler, Symbicort inhaler, Decadron, vitamin C, vitamin D3, and zinc. Additional recommendations and suggestions are forthcoming. Prognosis is guarded. The chest x-ray, accord ing to the radiologist, may be slightly improved. Plan dated 03/28/2023. The patient is seen today in room 368. He continues on AIRVO, at 60 L/m, with an FiO2 of 90%. His saturations ranged from 90% as a low, up to 95% has a high. Labs, x-rays, and medications are reviewed. The patient continues on appropriate medications. The chest x-ray dated March 27, apparently is read/ interpreted by the radiologist showing improvement. I thought there was no significant change. Patient continues on appropriate medications including bronchodilators, steroids, and vitamins. Prognosis is certainly guarded. Time with Patient: Less than 30
[2023-03-28] MEDS: DEXTROSE 5%-0.9% NACL 1,000 ML IV SCH (16:45)
[2023-03-28] MEDS: ESCITALOPRAM 10 MG TAB PO SCH (16:45)
[2023-03-28] MEDS: ATORVASTATIN 20 MG TAB PO SCH (21:17)
[2023-03-29] MEDS: HEPARIN SODIUM,PORCINE 5,000 UNIT/ML 1 ML VIAL SQ SCH ×3 (00:17→17:53)
[2023-03-29] MEDS: ALBUTEROL HFA INHALER INHALATION SCH ×6 (00:28→20:08)
[2023-03-29] MEDS: PANTOPRAZOLE 40 MG TABLET PO SCH (06:38)
[2023-03-29] MEDS: SYMBICORT 160-4.5 MCG INHALER INHALATION SCH ×2 (09:03→20:09)
[2023-03-29] MEDS: FAMOTIDINE 20 MG TAB PO SCH (09:30)
[2023-03-29] MEDS: ASCORBIC ACID 500 MG TAB PO SCH (09:30)
[2023-03-29] MEDS: ESCITALOPRAM 10 MG TAB PO SCH (09:30)
[2023-03-29] MEDS: ZINC SULFATE 220 MG CAP PO SCH (09:30)
[2023-03-29] MEDS: CHOLECALCIFEROL 25 MCG (1000 IU) TABLET PO SCH (09:30)
[2023-03-29] MEDS: amLODIPine 10 MG TAB PO SCH (09:31)
[2023-03-29] MEDS: lisinopriL 20 MG TAB PO SCH (09:31)
[2023-03-29] MEDS: DEXAMETHASONE SOD PHOSPHATE 10 MG/ML 1 ML VIAL IVP SCH (09:31)
[2023-03-29] MEDS: BISOPROLOL-HCTZ 5-6.25 MG 1 EACH TAB PO SCH (09:31)
[2023-03-29] MEDS: DEXTROSE 5%-0.9% NACL 1,000 ML IV SCH ×2 (09:33→17:53)
[2023-03-29 09:47] LABS: Basophils % (A) 0 %; Eosinophils # (A) 0.1 k/uL (0-0.7); Eosinophils % (A) 0 %; HCT 46.4 % (39.0-53.0); HGB 14.4 gm/dL (13.0-17.5); Hypochromasia Slight; Lymphocytes # (A) 0.6 k/uL (1.0-4.8); Lymphocytes % (A) 4 %; MCV 93.6 fL (80.0-100.0); Mean Platelet Volume 8.9; Monocytes # (A) 0.7 k/uL (0-1.0); Monocytes % (A) 4 %; Neutrophils # (A) 13.7 k/uL (1.3-7.7); Neutrophils % (A) 90 %; Platelet Count 197 k/uL (150-450); RBC 4.96 m/uL (4.30-5.90); RDW 14.2 % (11.5-15.5); WBC 15.2 k/uL (3.8-10.6)
[2023-03-29 10:46] LABS: African American GFR (CKD) >90 (>60 ml/min/1.73 sqM); Anion Gap 2 mmol/L; Blood Urea Nitrogen 25 mg/dL (9-20); Calcium 8.8 mg/dL (8.4-10.2); Carbon Dioxide 39 mmol/L (22-30); Chloride 99 mmol/L (98-107); Glucose 107 mg/dL (74-99); Non-African American GFR(CKD) >90 (>60 ml/min/1.73 sqM); Potassium 4.4 mmol/L (3.5-5.1); Sodium 140 mmol/L (137-145)
--- NOTE | 2023-03-29 11:28 | P.PN ---
Subjective Progress Note Date: 03/29/23 Principal diagnosis: Hypoxemic respiratory failure. I am seeing this patient in new consultation today 03/24/2023 for suspected left lower lobe pneumonia. Patient is a 73-year-old white male with past medical history significant for recent admission with left lower lobe pneumonia, discharged on March 17. During this admission, the patient was also found to have metastatic adenocarcinoma of the lung based on pleural fluid cytology from a left sided thoracentesis. He also has history of COPD, hypertension, hyperlipidemia, GERD, and ongoing chronic tobacco dependence. Patient is known to have a 10 mm x 7mm right upper lung nodule, originally seen back in June,. His PCP is Dr. Nichols. Chest CT from his most recent admission, March 07, demonstrated a right upper lung bronchus large airway occlusion concerning for obstructive mass. There was also a loculated left pleural effusion with left lung consolidation. The patient was treated with IV antibiotics and discharged home on Augmentin. He was established with an oncologist, and is reportedly going to undergo a PET scan outpatient. Patient returned to the emergency room last night, reporting that he's had ongoing progressively worsening shortness of breath since discharge. He admits an associated nonproductive cough. Denies any fever, chills, myalgias, hemoptysis. Denies any chest pain, palpitations, lower extremity edema, syncope. A chest x-ray done on arrival, showed worsening airspace opacities within the left mid and lower lung zones compared to prior imaging. There was also suspected right lower lung atelectasis, and trace to small bilateral pleural effusions. Patient did test positive for COVID-19, possibly an incidental finding. Patient is currently sitting up in bed, on BiPAP with settings 12/6 and FiO2 of 60%. Appears fairly comfortable. Respiratory rate is high 20s to low 30s and is achieving tidal volumes around 400. CBC on arrival shows leukocytosis with WBC count of 16.9, hemoglobin 14.7, hematocrit 45.4, platelets 150. BMP shows sodium 133, potassium 4.1, chloride 92, serum bicarbonate 39, BUN 17, creatinine 0.43, glucose 99. Currently receiving normal saline at 100 ML's per hour. He was started on empiric Zosyn and azithromycin. Currently afebrile. Also receiving Ventolin HFA, Symbicort inhaler, and IV Decadron. Patient is being monitored closely on the cardiac stepdown unit. Progress note dated 03/25/2023. 73-year-old male admitted on March 24, with a diagnosis of possible left lower lobe pneumonia, and hypoxemic respiratory failure. Currently, the patient is on BiPAP, with settings of 12/6, and 70%. He has no IV fluids running at this time. He did test positive for coronavirus. He does have a history of lung cancer, adenocarcinoma. The only labs today include glucose of 110. Chest x-ray from March 24, shows a small to moderate-sized left pleural effusion, with increased small right pleural effusion. There is also some right lower lung consolidation. Progress note dated 03/26/2023. 73-year-old male admitted on March 24, with a diagnosis of possible left lower lobe pneumonia and hypoxemic respiratory failure. The patient is currently on AIRVO, with settings of 60 L/m and an FiO2 of 90%. He's not receiving any IV fluids. A chest x-ray is ordered for March 27. The only lab today with a glucose of 111. Clinically, the patient's doing about the same. Blood cultures are currently negative. Progress note dated 03/27/2023. The patient is seen today in room 368. He continues on AIRVO, with settings of 60 L/m, with an FiO2 of 90%. The chest x-ray done today, shows worsening infiltrates. Clinically, the patient appears reasonably stable. White count 18.6, hemoglobin 10.8, hematocrit 46.2, and platelet count was normal. Sodium 139, potassium 4.6, chlorides 96, CO2 39, BUN 18, and creatinine 0.48. Blood cultures are negative. Chest x-ray shows bilateral pleural/parenchymal opacities, left greater than right. Radiologist feels there may be some improvement. Progress note dated 03/28/2023. This is a 74-year-old male seen in room 368. The patient continues on AIRVO, at 60 L/m, and an FiO2 of 90%. The patient does feel better. He's not receiving any IV fluids. Labs today include only a glucose of 89. As mentioned yesterday, the chest x-ray, as interpreted by the radiologist, suggests some improvement. Progress note dated 03/29/2023. The patient is seen today in room 368. He continues on AIRVO, at 60 L/m, with an FiO2 of 90%. He is getting D5 with normal saline, at 50 mL an hour. She does feel like he is getting better. He looks relatively stable, and his respiratory status, despite being on AIRVO, appears stable. White count is 15.2, with a normal hemoglobin, hematocrit, and platelet count. Sodium 140, potassium 4.4, chlorides 99, CO2 39, BUN 25, and creatinine 0.43. Objective - Vital Signs Vital signs: Vital Signs Temp 97.9 F 03/29/23 09:00 Pulse 121 H 03/29/23 09:00 Resp 24 03/29/23 09:00 BP 109/67 03/29/23 09:00 Pulse Ox 90 L 03/29/23 09:04 FiO2 90 03/29/23 09:04 Intake & Output 03/28/23 03/29/23 03/29/23 18:59 06:59 18:59 Intake Total 1000 Output Total 350 675 900 Balance 650 -675 -900 Weight 74.389 kg Intake: Intake, IV Titration 100 Amount Dextrose 5%-0.9% NaCl 1, 100 000 ml @ 50 mls/hr IV . Q20H [facility] Rx#:[id number] Oral 900 Output: Urine 350 675 900 Other: Voiding Method Urinal Urinal # Voids 1 - Exam No acute distress, oriented 3. The patient is currently on AIRVO, at 60 L/m with an FiO2 of 90%. Saturations are 91-92%. HEENT examination is grossly unremarkable. Neck supple. Full range of motion. No adenopathy thyromegaly or neck vein distention. Cardiovascular examination reveals regular rhythm rate. S1-S2 normal. No S3 or S4. No discernible murmur noted. Heart rate 100 beats per sounds are distant. Lungs reveal scattered rhonchi, with a few scattered bibasilar crackles. No wheezes. Breath sounds are equal bilaterally. Saturations are 91-92%. He is currently on AIRVO, at 60 L/m, with an FiO2 of 90%. Abdomen soft bowel sounds are heard. No masses or tenderness. Extremities are intact. No cyanosis clubbing or edema. Skin is without rash or lesion. Neurologic examination is brief but nonfocal. - Labs CBC & Chem 7: 03/29/23 08:57 03/29/23 08:57 Labs: Abnormal Lab Results - Last 24 Hours (Table) 03/29/23 03/29/23 Range/Units 08:57 08:57 WBC 15.2 H (3.8-10.6) k/uL Neutrophils # 13.7 H (1.3-7.7) k/uL Lymphocytes # 0.6 L (1.0-4.8) k/uL Carbon Dioxide 39 H (22-30) mmol/L BUN 25 H (9-20) mg/dL Creatinine 0.43 L (0.66-1.25) mg/dL Glucose 107 H (74-99) mg/dL Microbiology - Last 24 Hours (Table) 03/23/23 19:35 Blood Culture - Final Blood 03/23/23 19:20 Blood Culture - Final Blood Assessment and Plan Assessment: Acute hypoxemic respiratory failure secondary to recurrent/persistent left lower lobe pneumonia. Chest x-ray on arrival demonstrates worsening opacities within the left mid and lower lung zones compared to his recent imaging. There was also suspected right lower lung atelectasis, and trace to small bilateral pleural effusions. Also, did test positive for COVID-19, possibly an incidental finding. Leukocytosis, secondary to above. Acute COPD exacerbation, secondary to above. Recent diagnosis of metastatic pulmonary adenocarcinoma based on pleural fluid cytology from a left-sided thoracentesis 03/11/23. History of right apical lung nodule measuring 10 by 7 mm June,. Benign essential hypertension. Hyperlipidemia. GERD. Chronic ongoing tobacco dependence. Plan: Plan dated 03/25/2023. The patient's labs, x-rays, and medications are all reviewed. The patient goes between BiPAP, in the AIRVO, for respiratory support. He is currently a full code. The patient's antibiotics and other medications will be continued. Oncology will be consulted. The patient will continue with DVT and GI prophylaxis. The patient's overall prognosis remains very guarded given all of his medical issues. We will continue to follow make recommendations along the way. The patient remains on antibiotics. Plan dated 03/26/2023. The patient is seen today in room 368. The patient remains on AIRVO at the current time, at 60 L/m, with an FiO2 of 90%. The patient remains a full code. A chest x-ray will be ordered for March 27. Labs, x-rays, and medications are reviewed. The patient remains on albuterol, Symbicort, and Decadron, and the patient's also on vitamin C, vitamin D3, and zinc. We will continue to follow make recommendations along the way. Prognosis is guarded. Plan dated 03/27/2023. The patient is seen again in room 368. Clinically, he appears relatively stable, even though he is on AIRVO and 60 L/m, with an FiO2 of 90%. The patient remains a full code. Labs, x-rays, medications are reviewed. The patient continues on appropriate medications including albuterol inhaler, Symbicort inhaler, Decadron, vitamin C, vitamin D3, and zinc. Additional recommendations and suggestions are forthcoming. Prognosis is guarded. The chest x-ray, according to the radiologist, may be slightly improved. Plan dated 03/28/2023. The patient is seen today in room 368. He continues on AIRVO, at 60 L/m, with an FiO2 of 90%. His saturations ranged from 90% as a low, up to 95% has a high. Labs, x-rays, and medications are reviewed. The patient continues on appropriate medications. The chest x-ray dated March 27 is read/ interpreted by the radiologist showing improvement. I thought there was no significant change. Patient continues on appropriate medications including bronchodilators, steroids, and vitamins. Prognosis is certainly guarded. Plan dated 03/29/2023. The patient appears to be doing reasonably well. When asked, the patient feels like he is getting better. Labs, x-rays, and medications are reviewed. The patient's currently on albuterol inhaler, vitamins, Symbicort, and Decadron. We will continue to follow make recommendations along the way. Prognosis is certainly guarded, given his need for higher concentrations of oxygen. Time with Patient: Less than 30
--- NOTE | 2023-03-29 11:29 | P.PN ---
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 Maintained on covid cocktail.Currently maintaining O2 sats in the 90s on airvo flow 60 and Fio2 90. BiPAP at bedside. Reports fatigue, weakness. Afebrile. Pro-calcitonin 0.06. Preliminary blood cultures reporting no growth after 24 hours. Denies chest pain, palpitations. 03/26/2023 maintained on airvo, 60 L FIO2 90%, maintaining O2 sats in the high 80s to low 90s. Mild anxiety. Denies chest pain, palpitations. Afebrile. Preliminary blood cultures reporting no growth after 48 hours. 03/27/2023 Feels better this morning. Received Xanax last night, rested better. Continues on Airvo 60 L, FiO2 90% and maintaining O2 sats in the high 80s to low 90s. Chest x-ray reporting ongoing bilateral pleural personal opacity slough greater than right, possibly slight improvement right base. These Bicarb 39, BUN 18, creatinine 0.48. Hemoglobin 14.8, platelets 168. Preliminary blood cultures reporting no growth after 72 hours. Afebrile. CHEMICAL STRENGTH TESTER increased to 18.6. Blood sugars controlled. 03/28/2023 maintained on Airvo 60 L, FiO2 90%, O2 sats fluctuates from high 80s to high 90s. Diet intake poor, consumed 25% of breakfast. Denies nausea, vomiting. Denies abdominal pain. Continues on COvid Cocktail. Afebrile. Preliminary blood cultures reporting no growth after 72 hours. Feels discouraged. 03/29/2023: Patient indicates he feels slightly better. He remains on Airvo high flow nasal cannula 60 L/m FiO2 is 90%. WBC count is down slightly. There is a left shift consistent with steroid use and Covid 19. His BUN is increased to 25 creatinine 0.43 today. Blood cultures were negative from 03/23/2023. He remains on alprazolam for anxiety vitamin C vitamin D zinc, dexamethasone, and heparin for the COVID-19, Symbicort for her COPD the citalopram for mood, lisinopril, amlodipine and bisoprolol HCTZ for hypertension. Oncology and pulm onology consultations were reviewed today. Objective - Vital Signs Vital signs: Vital Signs Temp 97.9 F 03/29/23 09:00 Pulse 121 H 03/29/23 09:00 Resp 24 03/29/23 09:00 BP 109/67 03/29/23 09:00 Pulse Ox 90 L 03/29/23 09:04 FiO2 90 03/29/23 09:04 Intake & Output 03/28/23 03/29/23 03/29/23 18:59 06:59 18:59 Intake Total 1000 Output Total 350 675 200 Balance 650 -675 -200 Weight 74.389 kg Intake: Intake, IV Titration 100 Amount Dextrose 5%-0.9% NaCl 1, 100 000 ml @ 50 mls/hr IV . Q[facility]H [facility] Rx#:[id number] Oral 900 Output: Urine 350 675 200 Other: Voiding Method Urinal Urinal # Voids 1 - Exam General: Patient awake, alert and oriented times 3. wearing AIrvo current settings are 60 L/m. Fatigued. Neck: supple,No JVD. Cardiac: Regular S1 and S2. No S3. No S4. No clicks, rubs. No murmur. Lungs: Increased respiratory effort .Diminished bilateral breath sounds, scattered rhonchi. Similar to the previous day Abdomen: Soft, nontender, no guarding. Bowel sounds present and normoactive in all 4 quadrants. Extremes trace edema no cyanosis no claudication normal pulses, many boots are not in place Skin: [No rash, warm and dry.] Psych: He is awake alert and oriented 3, anxiety seems improved today. He is looking forward to talking to his today Neurologic: No lateralizing deficits. CN II - XII grossly intact. - Labs CBC & Chem 7: 03/29/23 08:57 03/29/23 08:57 Labs: Abnormal Lab Results - Last 24 Hours (Table) 03/29/23 03/29/23 Range/Units 08:57 08:57 WBC 15.2 H (3.8-10.6) k/uL Neutrophils # 13.7 H (1.3-7.7) k/uL Lymphocytes # 0.6 L (1.0-4.8) k/uL Carbon Dioxide 39 H (22-30) mmol/L BUN 25 H (9-20) mg/dL Creatinine 0.43 L (0.66-1.25) mg/dL Glucose 107 H (74-99) mg/dL Microbiology - Last 24 Hours (Table) 03/23/23 19:35 Blood Culture - Final Blood 03/23/23 19:20 Blood Culture - Final Blood Assessment and Plan (1) Depression with anxiety Current Visit: Yes Status: Acute Code(s): F41.8 - OTHER SPECIFIED ANXIETY DISORDERS SNOMED Code(s): 638466460 (2) Acute respiratory failure with hypoxia Current Visit: Yes Status: Acute Code(s): J96.01 - ACUTE RESPIRATORY FAILURE WITH HYPOXIA SNOMED Code(s): 83301463 (3) Adenocarcinoma of lung Current Visit: Yes Status: Acute Priority: High Code(s): C34.90 - MALIGNANT NEOPLASM OF UNSP PART OF UNSP BRONCHUS OR LUNG SNOMED Code(s): 477858754 (4) COVID-19 Current Visit: Yes Status: Acute Priority: High Code(s): U07.1 - COVID-19 SNOMED Code(s): 942047112 (5) Acute and chronic respiratory failure ([id number]) Current Visit: No Status: Acute Code(s): J96.20 - ACUTE AND CHR RESP FAILURE, UNSP W HYPOXIA OR HYPERCAPNIA SNOMED Code(s): 18267875 (6) Acute exacerbation of chronic obstructive pulmonary disease Current Visit: No Status: Acute Priority: High Code(s): J44.1 - CHRONIC OBSTRUCTIVE PULMONARY DISEASE W (ACUTE) EXACERBATION SNOMED Code(s): 961072953 (7) Essential (primary) hypertension Current Visit: No Status: Acute Code(s): I10 - ESSENTIAL (PRIMARY) HYPERTENSION SNOMED Code(s): 18807841 (8) Tobacco dependence Current Visit: No Status: Acute Code(s): F17.200 - NICOTINE DEPENDENCE, UNSPECIFIED, UNCOMPLICATED SNOMED Code(s): 65824527 Plan: He will continue his current meds. We'll add guaifenesin extended release to his regimen. We'll increase IV fluids slightly as his BUN is elevated. Encourage by mouth fluids. Trial of bedside commode, staff will monitor for significant desaturations. Commander Internal Affairs recommendations pending He'll be reevaluated by family medicine in the next 24 hours
[2023-03-29 12:35] LABS: Glucose,Whole Blood 125 mg/dL (70-110)
[2023-03-29 16:22] LABS: Glucose,Whole Blood 167 mg/dL (70-110)
[2023-03-29 20:42] LABS: Glucose,Whole Blood 129 mg/dL (70-110)
[2023-03-29] MEDS: ATORVASTATIN 20 MG TAB PO SCH (21:02)
[2023-03-29] MEDS: guaiFENesin 600 MG TABLET.ER PO SCH (21:02)
[2023-03-30] MEDS: HEPARIN SODIUM,PORCINE 5,000 UNIT/ML 1 ML VIAL SQ SCH ×3 (00:20→17:16)
[2023-03-30] MEDS: ALBUTEROL HFA INHALER INHALATION SCH ×7 (01:13→23:33)
[2023-03-30] MEDS: DEXTROSE 5%-0.9% NACL 1,000 ML IV SCH ×2 (05:22→17:18)
[2023-03-30] MEDS: PANTOPRAZOLE 40 MG TABLET PO SCH (06:24)
[2023-03-30 06:32] LABS: Glucose,Whole Blood 99 mg/dL (70-110)
[2023-03-30] MEDS: ESCITALOPRAM 10 MG TAB PO SCH (09:18)
[2023-03-30] MEDS: ASCORBIC ACID 500 MG TAB PO SCH (09:18)
[2023-03-30] MEDS: guaiFENesin 600 MG TABLET.ER PO SCH ×2 (09:18→20:47)
[2023-03-30] MEDS: BISOPROLOL-HCTZ 5-6.25 MG 1 EACH TAB PO SCH (09:18)
[2023-03-30] MEDS: CHOLECALCIFEROL 25 MCG (1000 IU) TABLET PO SCH (09:18)
[2023-03-30] MEDS: FAMOTIDINE 20 MG TAB PO SCH (09:19)
[2023-03-30] MEDS: DEXAMETHASONE SOD PHOSPHATE 10 MG/ML 1 ML VIAL IVP SCH (09:19)
[2023-03-30] MEDS: ZINC SULFATE 220 MG CAP PO SCH (09:19)
[2023-03-30] MEDS: amLODIPine 10 MG TAB PO SCH (09:19)
[2023-03-30] MEDS: lisinopriL 20 MG TAB PO SCH (09:19)
[2023-03-30] MEDS: SYMBICORT 160-4.5 MCG INHALER INHALATION SCH ×2 (09:36→20:59)
--- NOTE | 2023-03-30 11:09 | P.PN ---
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 Maintained on covid cocktail.Currently maintaining O2 sats in the 90s on airvo flow 60 and Fio2 90. BiPAP at bedside. Reports fatigue, weakness. Afebrile. Pro-calcitonin 0.06. Preliminary blood cultures reporting no growth after 24 hours. Denies chest pain, palpitations. 03/26/2023 maintained on airvo, 60 L FIO2 90%, maintaining O2 sats in the high 80s to low 90s. Mild anxiety. Denies chest pain, palpitations. Afebrile. Preliminary blood cultures reporting no growth after 48 hours. 03/27/2023 Feels better this morning. Received Xanax last night, rested better. Continues on Airvo 60 L, FiO2 90% and maintaining O2 sats in the high 80s to low 90s. Chest x-ray reporting ongoing bilateral pleural personal opacity slough greater than right, possibly slight improvement right base. These Bicarb 39, BUN 18, creatinine 0.48. Hemoglobin 14.8, platelets 168. Preliminary blood cultures reporting no growth after 72 hours. Afebrile. HISTORICAL INTERPRETER increased to 18.6. Blood sugars controlled. 03/28/2023 maintained on Airvo 60 L, FiO2 90%, O2 sats fluctuates from high 80s to high 90s. Diet intake poor, consumed 25% of breakfast. Denies nausea, vomiting. Denies abdominal pain. Continues on COvid Cocktail. Afebrile. Preliminary blood cultures reporting no growth after 72 hours. Feels discouraged. 03/29/2023: Patient indicates he feels slightly better. He remains on Airvo high flow nasal cannula 60 L/m FiO2 is 90%. WBC count is down slightly. There is a left shift consistent with steroid use and Covid 19. His BUN is increased to 25 creatinine 0.43 today. Blood cultures were negative from 03/23/2023. He remains on alprazolam for anxiety vitamin C vitamin D zinc, dexamethasone, and heparin for the COVID-19, Symbicort for her COPD the citalopram for mood, lisinopril, amlodipine and bisoprolol HCTZ for hypertension. Oncology and pulm onology consultations were reviewed today. 03/30/2023: Patient was found up in chair. He remains on Airvo 60 L/m. His O2 saturations now 98%. Blood pressure temperature remained stable. He indicates he is feeling better. Labs are pending for today. Due to slight increase in BUN, his IV fluids were increased yesterday. D5 normal saline at 75 mL per hour. He remains on heparin for DVT prophylaxis. He remains on pantoprazole for GI prophylaxis. She is in vitamin C vitamin D and zinc along with dexamethasone for his COVID-19. He has Symbicort and albuterol ordered for shortness breath rest or stress. He remains on alprazolam for anxiety. He continues on atorvastatin for hyperlipidemia, amlodipine lisinopril and bisoprolol HCTZ for hypertension. Pulmonology notes were reviewed from yesterday Objective - Vital Signs Vital signs: Vital Signs Temp 97.7 F 03/30/23 09:20 Pulse 106 H 03/30/23 09:20 Resp 22 03/30/23 09:20 BP 105/66 03/30/23 09:20 Pulse Ox 98 03/30/23 09:38 FiO2 80 03/30/23 09:38 Intake & Output 03/29/23 03/30/23 03/30/23 18:59 06:59 18:59 Intake Total 800 180 Output Total 900 400 500 Balance -100 -400 -320 Intake: Intake, IV Titration 800 Amount Dextrose 5%-0.9% NaCl 1, 800 000 ml @ 75 mls/hr IV . [id number] [facility] Rx#:[id number] Oral 180 Output: Urine 900 400 500 Other: Voiding Method Urinal # Bowel Movements 1 - Exam General: Patient awake, alert and oriented times 3. wearing AIrvo current settings are 60 L/m. appears improved. Up in chair today Neck: supple,No JVD. Cardiac: Regular S1 and S2. No S3. No S4. No clicks, rubs. No murmur. Lungs: More relaxed respiratory effort .Diminished bilateral breath sounds, scattered loud rhonchi. Similar to the previous day Abdomen: Soft, nontender, no guarding. Bowel sounds present and normoactive in all 4 quadrants. Extremes trace edema no cyanosis no claudication normal pulses, many boots are not in place Skin: No rash, warm and dry. Psych: He is awake alert and oriented 3, anxiety lessened this time. Neurologic: No lateralizing deficits. CN II - XII grossly intact. - Labs CBC & Chem 7: 03/29/23 08:57 03/29/23 08:57 Labs: Abnormal Lab Results - Last 24 Hours (Table) 03/29/23 03/29/23 03/29/23 Range/Units 12:34 16:19 20:29 POC Glucose (mg/dL) 125 H 167 H 129 H (70-110) mg/dL Assessment and Plan (1) Acute respiratory failure with hypoxia Current Visit: Yes Status: Acute Code(s): J96.01 - ACUTE RESPIRATORY FAILURE WITH HYPOXIA SNOMED Code(s): 92837277 (2) Adenocarcinoma of lung Current Visit: Yes Status: Acute Priority: High Code(s): C34.90 - MALIGNANT NEOPLASM OF UNSP PART OF UNSP BRONCHUS OR LUNG SNOMED Code(s): 642356846 (3) COVID-19 Current Visit: Yes Status: Acute Priority: High Code(s): U07.1 - COVID-19 SNOMED Code(s): 934549421 (4) Acute and chronic respiratory failure ([id number]) Current Visit: No Status: Acute Code(s): J96.20 - ACUTE AND CHR RESP FAILURE, UNSP W HYPOXIA OR HYPERCAPNIA SNOMED Code(s): 66949411 (5) Acute exacerbation of chronic obstructive pulmonary disease Current Visit: No Status: Acute Priority: High Code(s): J44.1 - CHRONIC OBSTRUCTIVE PULMONARY DISEASE W (ACUTE) EXACERBATION SNOMED Code(s): 910993683 (6) Essential (primary) hypertension Current Visit: No Status: Acute Code(s): I10 - ESSENTIAL (PRIMARY) HYPERTENSION SNOMED Code(s): 48582085 (7) Tobacco dependence Current Visit: No Status: Acute Code(s): F17.200 - NICOTINE DEPENDENCE, UNSPECIFIED, UNCOMPLICATED SNOMED Code(s): 56948938 (8) Depression with anxiety Current Visit: Yes Status: Acute Code(s): F41.8 - OTHER SPECIFIED ANXIETY DISORDERS SNOMED Code(s): 520778714 Plan: He will continue his current meds. Encourage by mouth intake Repeat labs in a.m. Poultry Barn Manager recommendations pending He'll be reevaluated by family medicine in the next 24 hours
--- NOTE | 2023-03-30 11:14 | P.PN ---
Subjective Progress Note Date: 03/30/23 Principal diagnosis: Hypoxemic respiratory failure. I am seeing this patient in new consultation today 03/24/2023 for suspected left lower lobe pneumonia. Patient is a 73-year-old white male with past medical history significant for recent admission with left lower lobe pneumonia, discharged on March 17. During this admission, the patient was also found to have metastatic adenocarcinoma of the lung based on pleural fluid cytology from a left sided thoracentesis. He also has history of COPD, hypertension, hyperlipidemia, GERD, and ongoing chronic tobacco dependence. Patient is known to have a 10 mm x 7mm right upper lung nodule, originally seen back in June,. His PCP is Dr. Nichols. Chest CT from his most recent admission, March 07, demonstrated a right upper lung bronchus large airway occlusion concerning for obstructive mass. There was also a loculated left pleural effusion with left lung consolidation. The patient was treated with IV antibiotics and discharged home on Augmentin. He was established with an oncologist, and is reportedly going to undergo a PET scan outpatient. Patient returned to the emergency room last night, reporting that he's had ongoing progressively worsening shortness of breath since discharge. He admits an associated nonproductive cough. Denies any fever, chills, myalgias, hemoptysis. Denies any chest pain, palpitations, lower extremity edema, syncope. A chest x-ray done on arrival, showed worsening airspace opacities within the left mid and lower lung zones compared to prior imaging. There was also suspected right lower lung atelectasis, and trace to small bilateral pleural effusions. Patient did test positive for COVID-19, possibly an incidental finding. Patient is currently sitting up in bed, on BiPAP with settings 12/6 and FiO2 of 60%. Appears fairly comfortable. Respiratory rate is high 20s to low 30s and is achieving tidal volumes around 400. CBC on arrival shows leukocytosis with WBC count of 16.9, hemoglobin 14.7, hematocrit 45.4, platelets 150. BMP shows sodium 133, potassium 4.1, chloride 92, serum bicarbonate 39, BUN 17, creatinine 0.43, glucose 99. Currently receiving normal saline at 100 ML's per hour. He was started on empiric Zosyn and azithromycin. Currently afebrile. Also receiving Ventolin HFA, Symbicort inhaler, and IV Decadron. Patient is being monitored closely on the cardiac stepdown unit. Progress note dated 03/25/2023. 73-year-old male admitted on March 24, with a diagnosis of possible left lower lobe pneumonia, and hypoxemic respiratory failure. Currently, the patient is on BiPAP, with settings of 12/6, and 70%. He has no IV fluids running at this time. He did test positive for coronavirus. He does have a history of lung cancer, adenocarcinoma. The only labs today include glucose of 110. Chest x-ray from March 24, shows a small to moderate-sized left pleural effusion, with increased small right pleural effusion. There is also some right lower lung consolidation. Progress note dated 03/26/2023. 73-year-old male admitted on March 24, with a diagnosis of possible left lower lobe pneumonia and hypoxemic respiratory failure. The patient is currently on AIRVO, with settings of 60 L/m and an FiO2 of 90%. He's not receiving any IV fluids. A chest x-ray is ordered for March 27. The only lab today with a glucose of 111. Clinically, the patient's doing about the same. Blood cultures are currently negative. Progress note dated 03/27/2023. The patient is seen today in room 368. He continues on AIRVO, with settings of 60 L/m, with an FiO2 of 90%. The chest x-ray done today, shows worsening infiltrates. Clinically, the patient appears reasonably stable. White count 18.6, hemoglobin 10.8, hematocrit 46.2, and platelet count was normal. Sodium 139, potassium 4.6, chlorides 96, CO2 39, BUN 18, and creatinine 0.48. Blood cultures are negative. Chest x-ray shows bilateral pleural/parenchymal opacities, left greater than right. Radiologist feels there may be some improvement. Progress note dated 03/28/2023. This is a 74-year-old male seen in room 368. The patient continues on AIRVO, at 60 L/m, and an FiO2 of 90%. The patient does feel better. He's not receiving any IV fluids. Labs today include only a glucose of 89. As mentioned yesterday, the chest x-ray, as interpreted by the radiologist, suggests some improvement. Progress note dated 03/29/2023. The patient is seen today in room 368. He continues on AIRVO, at 60 L/m, with an FiO2 of 90%. He is getting D5 with normal saline, at 50 mL an hour. She does feel like he is getting better. He looks relatively stable, and his respiratory status, despite being on AIRVO, appears stable. White count is 15.2, with a normal hemoglobin, hematocrit, and platelet count. Sodium 140, potassium 4.4, chlorides 99, CO2 39, BUN 25, and creatinine 0.43. Progress note dated 03/30/2023. The patient is seen today in room 368. He is on AIRVO, with settings of 60 L/m, for flow rate, and an FiO2, that has been dropped down to 80%. The patient continues on saline at 75 mL an hour. Chest x-ray ordered for tomorrow, March 31. No new labs today, other than a glucose of 99. Objective - Vital Signs Vital signs: Vital Signs Temp 97.7 F 03/30/23 09:20 Pulse 106 H 03/30/23 09:20 Resp 22 03/30/23 09:20 BP 105/66 03/30/23 09:20 Pulse Ox 98 03/30/23 09:38 FiO2 80 03/30/23 09:38 Intake & Output 03/29/23 03/30/23 03/30/23 18:59 06:59 18:59 Intake Total 800 180 Output Total 900 400 500 Balance -100 -400 -320 Intake: Intake, IV Titration 800 Amount Dextrose 5%-0.9% NaCl 1, 800 000 ml @ 75 mls/hr IV . [id number] [facility] Rx#:[id number] Oral 180 Output: Urine 900 400 500 Other: Voiding Method Urinal # Bowel Movements 1 - Exam No acute distress, oriented 3. The patient is currently on AIRVO, at 60 L/m with an FiO2 of 80 %. Saturations are 97 %. HEENT examination is grossly unremarkable. Neck supple. Full range of motion. No adenopathy thyromegaly or neck vein distention. Cardiovascular examination reveals regular rhythm rate. S1-S2 normal. No S3 or S4. No discernible murmur noted. Heart rate 97 beats per sounds are distant. Lungs reveal scattered rhonchi, with a few scattered bibasilar crackles. No w heezes. Breath sounds are equal bilaterally. Saturations are 97 %. He is currently on AIRVO, at 60 L/m, with an FiO2 of 80 %. Abdomen soft bowel sounds are heard. No masses or tenderness. Extremities are intact. No cyanosis clubbing or edema. Skin is without rash or lesion. Neurologic examination is brief but nonfocal. - Labs CBC & Chem 7: 03/29/23 08:57 03/29/23 08:57 Labs: Abnormal Lab Results - Last 24 Hours (Table) 03/29/23 03/29/23 03/29/23 Range/Units 12:34 16:19 20:29 POC Glucose (mg/dL) 125 H 167 H 129 H (70-110) mg/dL Assessment and Plan Assessment: Acute hypoxemic respiratory failure secondary to recurrent/persistent left lower lobe pneumonia. Chest x-ray on arrival demonstrates worsening opacities within the left mid and lower lung zones compared to his recent imaging. There was also suspected right lower lung atelectasis, and trace to small bilateral pleural effusions. Also, did test positive for COVID-19, possibly an incidental finding. Leukocytosis, secondary to above. Acute COPD exacerbation, secondary to above. Recent diagnosis of metastatic pulmonary adenocarcinoma based on pleural fluid cytology from a left-sided thoracentesis 03/11/23. History of right apical lung nodule measuring 10 x 7 mm June,. Benign essential hypertension. Hyperlipidemia. GERD. Chronic ongoing tobacco dependence. Plan: Plan dated 03/25/2023. The patient's labs, x-rays, and medications are all reviewed. The patient goes between BiPAP, in the AIRVO, for respiratory support. He is currently a full code. The patient's antibiotics and other medications will be continued. Oncology will be consulted. The patient will continue with DVT and GI prophylaxis. The patient's overall prognosis remains very guarded given all of his medical issues. We will continue to follow make recommendations along the way. The patient remains on antibiotics. Plan dated 03/26/2023. The patient is seen today in room 368. The patient remains on AIRVO at the current time, at 60 L/m, with an FiO2 of 90%. The patient remains a full code. A chest x-ray will be ordered for March 27. Labs, x-rays, and medications are reviewed. The patient remains on albuterol, Symbicort, and Decadron, and the patient's also on vitamin C, vitamin D3, and zinc. We will continue to f ryan make recommendations along the way. Prognosis is guarded. Plan dated 03/27/2023. The patient is seen again in room 368. Clinically, he appears relatively stable, even though he is on AIRVO and 60 L/m, with an FiO2 of 90%. The patient remains a full code. Labs, x-rays, medications are reviewed. The patient continues on appropriate medications including albuterol inhaler, Symbicort inha ler, Decadron, vitamin C, vitamin D3, and zinc. Additional recommendations and suggestions are forthcoming. Prognosis is guarded. The chest x-ray, according to the radiologist, may be slightly improved. Plan dated 03/28/2023. The patient is seen today in room 368. He continues on AIRVO, at 60 L/m, with an FiO2 of 90%. His saturations ranged from 90% as a low, up to 95% has a high. Labs, x-rays, and medications are reviewed. The patient continues on appropriate medications. The chest x-ray dated March 27, apparently is read/ interpreted by the radiologist showing improvement. I thought there was no significant change. Patient continues on appropriate medications including bronchodilators, steroids, and vitamins. Prognosis is certainly guarded. Plan dated 03/29/2023. The patient appears to be doing reasonably well. When asked, the patient feels like he is getting better. Labs, x-rays, and medications are reviewed. The patient's currently on albuterol inhaler, vitamins, Symbicort, and Decadron. We will continue to follow make recommendations along the way. Prognosis is certainly guarded, given his need for higher concentrations of oxygen. Plan dated 03/30/2023. The patient's labs, x-rays, and medications are reviewed. He'll follow-up x- rays ordered for tomorrow, March 31. The patient continues on saline at 75 mL an hour. Currently, he is on AIRVO, at 60 L/m for a flow rate, and FiO2 of 80%. On those settings, her saturations are 98%, which is an improvement. Additional recommendations and suggestions are forthcoming. We will continue to follow and make recommendations along the way. Time with Patient: Less than 30
[2023-03-30 11:45] LABS: Glucose,Whole Blood 123 mg/dL (70-110)
[2023-03-30 13:35] LABS: African American GFR (CKD) >90 (>60 ml/min/1.73 sqM); Anion Gap 3 mmol/L; Blood Urea Nitrogen 25 mg/dL (9-20); Calcium 8.6 mg/dL (8.4-10.2); Carbon Dioxide 38 mmol/L (22-30); Chloride 99 mmol/L (98-107); Glucose 109 mg/dL (74-99); Non-African American GFR(CKD) >90 (>60 ml/min/1.73 sqM); Potassium 4.4 mmol/L (3.5-5.1); Sodium 140 mmol/L (137-145)
[2023-03-30 16:38] LABS: Glucose,Whole Blood 127 mg/dL (70-110)
[2023-03-30 20:43] LABS: Glucose,Whole Blood 143 mg/dL (70-110)
[2023-03-30] MEDS: ATORVASTATIN 20 MG TAB PO SCH (20:47)
[2023-03-31] MEDS: HEPARIN SODIUM,PORCINE 5,000 UNIT/ML 1 ML VIAL SQ SCH ×4 (00:54→23:57)
[2023-03-31] MEDS: DEXTROSE 5%-0.9% NACL 1,000 ML IV SCH ×2 (03:59→15:07)
[2023-03-31 06:08] LABS: Glucose,Whole Blood 105 mg/dL (70-110)
[2023-03-31] MEDS: PANTOPRAZOLE 40 MG TABLET PO SCH (06:19)
--- NOTE | 2023-03-31 08:03 | XR ---
EXAMINATION TYPE: XR chest 1V portable DATE OF EXAM: 03/31/2023 HISTORY: Shortness of breath. COMPARISON: 03/27/2023 TECHNIQUE: Single view of the chest is submitted. FINDINGS: Demonstrated are scattered senescent parenchymal change. Stable patchy infiltrate left upper lobe and left lower lobe with small bilateral pleural effusions. The heart is stable. Hilar and mediastinal structures are within normal limits. Degenerative changes are seen of the dorsal spine. IMPRESSION: 1. Stable patchy infiltrate left upper lobe and left lower lobe with small bilateral pleural effusio ns.
[2023-03-31] MEDS: ASCORBIC ACID 500 MG TAB PO SCH (08:17)
[2023-03-31] MEDS: guaiFENesin 600 MG TABLET.ER PO SCH ×2 (08:18→20:07)
[2023-03-31] MEDS: DEXAMETHASONE SOD PHOSPHATE 10 MG/ML 1 ML VIAL IVP SCH (08:18)
[2023-03-31] MEDS: BISOPROLOL-HCTZ 5-6.25 MG 1 EACH TAB PO SCH (08:18)
[2023-03-31] MEDS: CHOLECALCIFEROL 25 MCG (1000 IU) TABLET PO SCH (08:18)
[2023-03-31] MEDS: ESCITALOPRAM 10 MG TAB PO SCH (08:18)
[2023-03-31] MEDS: lisinopriL 20 MG TAB PO SCH (08:18)
[2023-03-31] MEDS: amLODIPine 10 MG TAB PO SCH (08:18)
[2023-03-31] MEDS: ZINC SULFATE 220 MG CAP PO SCH (08:18)
[2023-03-31] MEDS: FAMOTIDINE 20 MG TAB PO SCH (08:18)
[2023-03-31] MEDS: ALBUTEROL HFA INHALER INHALATION SCH ×4 (08:22→21:13)
[2023-03-31] MEDS: SYMBICORT 160-4.5 MCG INHALER INHALATION SCH ×2 (08:22→21:14)
[2023-03-31 08:58] LABS: Basophils % (A) 0 %; Eosinophils % (A) 0 %; HGB 13.9 gm/dL (13.0-17.5); Hypochromasia Moderate; Lymphocytes # (A) 0.5 k/uL (1.0-4.8); Lymphocytes % (A) 4 %; MCH 29.3 pg (25.0-35.0); MCHC 30.9 g/dL (31.0-37.0); MCV 94.8 fL (80.0-100.0); Mean Platelet Volume 8.6; Monocytes # (A) 0.7 k/uL (0-1.0); Monocytes % (A) 6 %; Neutrophils # (A) 11.1 k/uL (1.3-7.7); Neutrophils % (A) 89 %; Platelet Count 239 k/uL (150-450); RBC 4.74 m/uL (4.30-5.90); RDW 14.2 % (11.5-15.5); WBC 12.5 k/uL (3.8-10.6)
[2023-03-31 08:59] LABS: African American GFR (CKD) >90 (>60 ml/min/1.73 sqM); Blood Urea Nitrogen 23 mg/dL (9-20); Calcium 8.5 mg/dL (8.4-10.2); Chloride 100 mmol/L (98-107); Glucose 107 mg/dL (74-99); Magnesium 1.8 mg/dL (1.6-2.3); Non-African American GFR(CKD) >90 (>60 ml/min/1.73 sqM); Potassium 4.2 mmol/L (3.5-5.1); Sodium 142 mmol/L (137-145)
[2023-03-31 09:07] LABS: Anion Gap 4 mmol/L
[2023-03-31 09:14] LABS: Carbon Dioxide 38 mmol/L (22-30)
[2023-03-31 11:51] LABS: Glucose,Whole Blood 101 mg/dL (70-110)
--- NOTE | 2023-03-31 13:22 | P.PN ---
Subjective Progress Note Date: 03/31/23 Hypoxemic respiratory failure. I am seeing this patient in new consultation today 03/24/2023 for suspected left lower lobe pneumonia. Patient is a 73-year-old white male with past medical history significant for recent admission with left lower lobe pneumonia, discharged on March 17. During this admission, the patient was also found to have metastatic adenocarcinoma of the lung based on pleural fluid cytology from a left sided thoracentesis. He also has history of COPD, hypertension, hyperlipidemia, GERD, and ongoing chronic tobacco dependence. Patient is known to have a 10 mm x 7mm right upper lung nodule, originally seen back in June,. His PCP is Dr. Nichols. Chest CT from his most recent admission, March 07, demonstrated a right upper lung bronchus large airway occlusion concerning for obstructive mass. There was also a loculated left pleural effusion with left lung consolidation. The patient was treated with IV antibiotics and discharged home on Augmentin. He was established with an oncologist, and is reportedly going to undergo a PET scan outpatient. Patient returned to the emergency room last night, reporting that he's had ongoing progressively worsening shortness of breath since discharge. He admits an associated nonproductive cough. Denies any fever, chills, myalgias, hemoptysis. Denies any chest pain, palpitations, lower extremity edema, syncope. A chest x-ray done on arrival, showed worsening airspace opacities within the left mid and lower lung zones compared to prior imaging. There was also suspected right lower lung atelectasis, and trace to small bilateral pleural effusions. Patient did test positive for COVID-19, possibly an incidental finding. Patient is currently sitting up in bed, on BiPAP with settings 12/6 and FiO2 of 60%. Appears fairly comfortable. Respiratory rate is high 20s to low 30s and is achieving tidal volumes around 400. CBC on arrival shows leukocytosis with WBC count of 16.9, hemoglobin 14.7, hematocrit 45.4, platelets 150. BMP shows sodium 133, potassium 4.1, chloride 92, serum bicarbonate 39, BUN 17, creatinine 0.43, glucose 99. Currently receiving normal saline at 100 ML's per hour. He was started on empiric Zosyn and azithromycin. Currently afebrile. Also receiving Ventolin HFA, Symbicort inhaler, and IV Decadron. Patient is being monitored closely on the cardiac stepdown unit. Progress note dated 03/25/2023. 73-year-old male admitted on March 24, with a diagnosis of possible left lower lobe pneumonia, and hypoxemic respiratory failure. Currently, the patient is on BiPAP, with settings of 12/6, and 70%. He has no IV fluids running at this time. He did test positive for coronavirus. He does have a history of lung cancer, adenocarcinoma. The only labs today include glucose of 110. Chest x-ray from March 24, shows a small to moderate-sized left pleural effusion, with increased small right pleural effusion. There is also some right lower lung consolidation. Progress note dated 03/26/2023. 73-year-old male admitted on March 24, with a diagnosis of possible left lower lobe pneumonia and hypoxemic respiratory failure. The patient is currently on AIRVO, with settings of 60 L/m and an FiO2 of 90%. He's not receiving any IV fluids. A chest x-ray is ordered for March 27. The only lab today with a glucose of 111. Clinically, the patient's doing about the same. Blood cultures are currently negative. Progress note dated 03/27/2023. The patient is seen today in room 368. He continues on AIRVO, with settings of 60 L/m, with an FiO2 of 90%. The chest x-ray done today, shows worsening infiltrates. Clinically, the patient appears reasonably stable. White count 18.6, hemoglobin 10.8, hematocrit 46.2, and platelet count was normal. Sodium 139, potassium 4.6, chlorides 96, CO2 39, BUN 18, and creatinine 0.48. Blood cultures are negative. Chest x-ray shows bilateral pleural/parenchymal opacities, left greater than right. Radiologist feels there may be some improvement. Progress note dated 03/28/2023. This is a 74-year-old male seen in room 368. The patient continues on AIRVO, at 60 L/m, and an FiO2 of 90%. The patient does feel better. He's not receiving any IV fluids. Labs today include only a glucose of 89. As mentioned yesterday, the chest x-ray, as interpreted by the radiologist, suggests some improvement. Progress note dated 03/29/2023. The patient is seen today in room 368. He continues on AIRVO, at 60 L/m, with an FiO2 of 90%. He is getting D5 with normal saline, at 50 mL an hour. She does feel like he is getting better. He looks relatively stable, and his respiratory status, despite being on AIRVO, appears stable. White count is 15.2, with a normal hemoglobin, hematocrit, and platelet count. Sodium 140, potassium 4.4, chlorides 99, CO2 39, BUN 25, and creatinine 0.43. Progress note dated 03/30/2023. The patient is seen today in room 368. He is on AIRVO, with settings of 60 L/m, for flow rate, and an FiO2, that has been dropped down to 80%. The patient continues on saline at 75 mL an hour. Chest x-ray ordered for tomorrow, March 31. No new labs today, other than a glucose of 99. 03/31 2023, the patient remains on high flow oxygen. He remains on 60 L an FiO2 has been done to 70%.the patient remains weak, short of breath, oxygenation. 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 At the same time, the patient was diagnosed having an acute Covid 19 infection.repeat chest x-ray from today shows a stable patchy infiltrates in the left along with small bilateral pleural effusion more so on the left. Meanwhile, the patient was diagnosed having Covid 19 infection on 04/19/2023 and the patient is currently on Decadron. The patient is also was found to have Enterobacter in his sputum and a bacterial pneumonia is suspected. His currently not receiving any antibiotic coverage. He is on Decadron 6 mg IV every 24 hours. He is on Ventolin HFA 4 times a day and Symbicort as maintenance. Rest of the home medications have been all resume. Labs showed a basic on of 12.5, hemoglobin 16.9, BUN is 23 with a creatinine of 0.4. His current pulse ox is 94%. Is getting progressively weak and more debilitated. Objective - Vital Signs Vital signs: Vital Signs Temp 98.1 F 03/31/23 08:14 Pulse 93 03/31/23 08:14 Resp 20 03/31/23 08:14 BP 132/78 03/31/23 08:14 Pulse Ox 90 L 03/31/23 08:22 FiO2 73 03/31/23 08:22 Intake & Output 03/30/23 03/31/23 03/31/23 18:59 06:59 18:59 Intake Total 180 0 Output Total 1300 500 Balance -1120 -500 0 Intake: Oral 180 0 Output: Urine 1300 500 Other: Voiding Method Urinal # Voids 1 # Bowel Movements 1 1 1 - Exam No acute distress, oriented 3. The patient is currently on AIRVO, at 60 L/m with an FiO2 of 70 %. Saturations are 97 %. HEENT examination is grossly unremarkable. Neck supple. Full range of motion. No adenopathy thyromegaly or neck vein distention. Cardiovascular examination reveals regular rhythm rate. S1-S2 normal. No S3 or S4. No discernible murmur noted. Lungs reveal scattered rhonchi, with a few scattered bibasilar crackles. No wheezes. Breath sounds are equal bilaterally. Abdomen soft bowel sounds are heard. No masses or tenderness. Extremities are intact. No cyanosis clubbing or edema. Skin is without rash or lesion. Neurologic examination is brief but nonfocal. - Labs CBC & Chem 7: 03/31/23 08:22 03/31/23 08:22 Labs: Abnormal Lab Results - Last 24 Hours (Table) 03/30/23 03/30/23 03/30/23 Range/Units 11:43 12:01 16:36 WBC (3.8-10.6) k/uL MCHC (31.0-37.0) g/dL Neutrophils # (1.3-7.7) k/uL Lymphocytes # (1.0-4.8) k/uL Carbon Dioxide 38 H (22-30) mmol/L BUN 25 H (9-20) mg/dL Creatinine 0.40 L (0.66-1.25) mg/dL Glucose 109 H (74-99) mg/dL POC Glucose (mg/dL) 123 H 127 H (70-110) mg/dL 03/30/23 03/31/23 03/31/23 Range/Units 20:42 08:22 08:22 WBC 12.5 H (3.8-10.6) k/uL MCHC 30.9 L (31.0-37.0) g/dL Neutrophils # 11.1 H (1.3-7.7) k/uL Lymphocytes # 0.5 L (1.0-4.8) k/uL Carbon Dioxide 38 H (22-30) mmol/L BUN 23 H (9-20) mg/dL Creatinine 0.40 L (0.66-1.25) mg/dL Glucose 107 H (74-99) mg/dL POC Glucose (mg/dL) 143 H (70-110) mg/dL Microbiology - Last 24 Hours (Table) 03/29/23 12:54 Gram Stain - Final Sputum Sputum Culture - Final Enterobacter aerogenes Assessment and Plan Plan: Acute hypoxemic respiratory failure secondary to recurrent/persistent left lower lobe pneumonia. Chest x-ray on arrival demonstrates worsening opacities within the left mid and lower lung zones compared to his recent imaging. There was also suspected right lower lung atelectasis, and trace to small bilateral pleural effusions. Also, did test positive for COVID-19, possibly an incidental finding. The patient has also Enterobacter in his sputum and patchy infiltrates are seen in the left upper lobe and the left lower lobe. Rule out malignancy/primary bronchogenic carcinoma. Rule out bacterial infection/pneumonia as the patient was found to have Enterobacter in his sputum. In addition, he has advanced COPD, and a malignant left-sided pleural effusion. Leukocytosis, secondary to above. Acute COPD exacerbation, secondary to above. Recent diagnosis of metastatic pulmonary adenocarcinoma based on pleural fluid cytology from a left-sided thoracentesis 03/11/23. History of right apical lung nodule measuring 10 x 7 mm June,. Benign essential hypertension. Hyperlipidemia. GERD. Chronic ongoing tobacco dependence. Plan: We'll add antibiotics. Recommend covering the gram-negative pulmonary infection with IV cefepime. Continue Decadron Pleural effusions are small Wean down FiO2 as tolerated and keep the floor at 60 L Prognosis remains poor based above-mentioned comorbidities.
--- NOTE | 2023-03-31 15:52 | P.PN ---
Subjective Progress Note Date: 03/31/23 Principal diagnosis: recently diagnosed with bronchogenic carcinoma, admitted with Covid 19 infection Patient recently admitted with:Covid 19 infection, recently diagnosed with b ronchogenic carcinoma recent culture demonstrates Enterobacter lungs IV antibiotic therapy was initiated I Dr. Nguyen Objective - Vital Signs Vital signs: Vital Signs Temp 98.5 F 03/31/23 15:02 Pulse 92 03/31/23 15:02 Resp 24 03/31/23 15:02 BP 122/73 03/31/23 15:02 Pulse Ox 94 L 03/31/23 15:02 FiO2 73 03/31/23 15:02 Intake & Output 03/30/23 03/31/23 03/31/23 18:59 06:59 18:59 Intake Total 180 0 Output Total 1300 500 400 Balance -1120 -500 -400 Weight 74.389 kg Intake: Oral 180 0 Output: Urine 1300 500 400 Other: Voiding Method Urinal # Voids 1 # Bowel Movements 1 1 1 - Exam General: [Patient awake, alert and oriented times 3. Patient in no acute distress.] HEENT: [PERRL. EOMI. No pharyngeal erythema or exudate.] Neck: [No adenopathy.] Cardiac: [Heart regular in rate and rhythm. No S3. No S4. No clicks, rubs. No murmur.] Lungs:diminished breath sounds bilaterally Abdomen: [No mass. No organomegaly. Bowel sounds presnt and normoactive in all 4 quadrants.] Extremes: [No edema no cyanosis no claudication normal pulses] : [] Musculoskeletal: [No joint erythema, edema or tenderness.] Skin: [No rash.] Neurologic: [No lateralizing deficits. CN II - XII grossly intact.] Lymphatic: [No adenopathy.] - Labs CBC & Chem 7: 03/31/23 08:22 03/31/23 08:22 Labs: Abnormal Lab Results - Last 24 Hours (Table) 03/30/23 03/30/23 03/31/23 Range/Units 16:36 20:42 08:22 WBC 12.5 H (3.8-10.6) k/uL MCHC 30.9 L (31.0-37.0) g/dL Neutrophils # 11.1 H (1.3-7.7) k/uL Lymphocytes # 0.5 L (1.0-4.8) k/uL Carbon Dioxide (22-30) mmol/L BUN (9-20) mg/dL Creatinine (0.66-1.25) mg/dL Glucose (74-99) mg/dL POC Glucose (mg/dL) 127 H 143 H (70-110) mg/dL 03/31/23 Range/Units 08:22 WBC (3.8-10.6) k/uL MCHC (31.0-37.0) g/dL Neutrophils # (1.3-7.7) k/uL Lymphocytes # (1.0-4.8) k/uL Carbon Dioxide 38 H (22-30) mmol/L BUN 23 H (9-20) mg/dL Creatinine 0.40 L (0.66-1.25) mg/dL Glucose 107 H (74-99) mg/dL POC Glucose (mg/dL) (70-110) mg/dL Microbiology - Last 24 Hours (Table) 03/29/23 12:54 Gram Stain - Final Sputum Sputum Culture - Final Enterobacter aerogenes Assessment and Plan (1) Acute respiratory failure with hypoxia Current Visit: Yes Status: Acute Code(s): J96.01 - ACUTE RESPIRATORY FAILURE WITH HYPOXIA SNOMED Code(s): 91833338 (2) COPD (chronic obstructive pulmonary disease) Current Visit: Yes Status: Acute Code(s): J44.9 - CHRONIC OBSTRUCTIVE PULMONARY DISEASE, UNSPECIFIED SNOMED Code(s): 32239540 (3) COVID-19 Current Visit: Yes Status: Acute Priority: High Code(s): U07.1 - COVID-19 SNOMED Code(s): 742377732 (4) Pneumonia Current Visit: Yes Status: Acute Code(s): J18.9 - PNEUMONIA, UNSPECIFIED ORGANISM SNOMED Code(s): 288477818 (5) Acute and chronic respiratory failure ([id number]) Current Visit: No Status: Acute Code(s): J96.20 - ACUTE AND CHR RESP FAILURE, UNSP W HYPOXIA OR HYPERCAPNIA SNOMED Code(s): 64975455 (6) Adenocarcinoma of lung Current Visit: Yes Status: Acute Priority: High Code(s): C34.90 - MALIGNANT NEOPLASM OF UNSP PART OF UNSP BRONCHUS OR LUNG SNOMED Code(s): 304819254 (7) Atherosclerosis of abdominal aorta Current Visit: No Status: Acute Code(s): I70.0 - ATHEROSCLEROSIS OF AORTA SNOMED Code(s): 080502472 Plan: IV antibiotic therapy per pulmonary IV Decadron covid 19 infection BiPAP Further imaging as outpatient for bronchogenic carcinoma IE PET scan this patient has poor prognosis given his diagnosis and comorbidities Time with Patient: Greater than 30
[2023-03-31 16:27] LABS: Glucose,Whole Blood 149 mg/dL (70-110)
[2023-03-31] MEDS: ATORVASTATIN 20 MG TAB PO SCH (20:07)
[2023-03-31 20:42] LABS: Glucose,Whole Blood 132 mg/dL (70-110)
[2023-04-01 06:10] LABS: Glucose,Whole Blood 103 mg/dL (70-110)
[2023-04-01] MEDS: PANTOPRAZOLE 40 MG TABLET PO SCH (06:39)
[2023-04-01] MEDS: DEXTROSE 5%-0.9% NACL 1,000 ML IV SCH ×2 (06:40→15:06)
[2023-04-01] MEDS: guaiFENesin 600 MG TABLET.ER PO SCH ×2 (07:51→20:48)
[2023-04-01] MEDS: amLODIPine 10 MG TAB PO SCH (07:51)
[2023-04-01] MEDS: BISOPROLOL-HCTZ 5-6.25 MG 1 EACH TAB PO SCH (07:51)
[2023-04-01] MEDS: CHOLECALCIFEROL 25 MCG (1000 IU) TABLET PO SCH (07:51)
[2023-04-01] MEDS: lisinopriL 20 MG TAB PO SCH (07:51)
[2023-04-01] MEDS: ESCITALOPRAM 10 MG TAB PO SCH (07:51)
[2023-04-01] MEDS: ASCORBIC ACID 500 MG TAB PO SCH (07:51)
[2023-04-01] MEDS: ZINC SULFATE 220 MG CAP PO SCH (07:51)
[2023-04-01] MEDS: DEXAMETHASONE SOD PHOSPHATE 10 MG/ML 1 ML VIAL IVP SCH (07:52)
[2023-04-01] MEDS: FAMOTIDINE 20 MG TAB PO SCH (07:52)
[2023-04-01] MEDS: HEPARIN SODIUM,PORCINE 5,000 UNIT/ML 1 ML VIAL SQ SCH ×3 (07:52→23:16)
[2023-04-01] MEDS: SYMBICORT 160-4.5 MCG INHALER INHALATION SCH ×2 (09:42→21:42)
[2023-04-01] MEDS: ALBUTEROL HFA INHALER INHALATION SCH ×4 (09:42→21:44)
[2023-04-01 11:23] LABS: Glucose,Whole Blood 141 mg/dL (70-110)
--- NOTE | 2023-04-01 11:40 | P.PN ---
Subjective Progress Note Date: 04/01/23 Hypoxemic respiratory failure. I am seeing this patient in new consultation today 03/24/2023 for suspected left lower lobe pneumonia. Patient is a 73-year-old white male with past medical history significant for recent admission with left lower lobe pneumonia, discharged on March 17. During this admission, the patient was also found to have metastatic adenocarcinoma of the lung based on pleural fluid cytology from a left sided thoracentesis. He also has history of COPD, hypertension, hyperlipidemia, GERD, and ongoing chronic tobacco dependence. Patient is known to have a 10 mm x 7mm right upper lung nodule, originally seen back in June,. His PCP is Dr. Nichols. Chest CT from his most recent admission, March 07, demonstrated a right upper lung bronchus large airway occlusion concerning for obstructive mass. There was also a loculated left pleural effusion with left lung consolidation. The patient was treated with IV antibiotics and discharged home on Augmentin. He was established with an oncologist, and is reportedly going to undergo a PET scan outpatient. Patient returned to the emergency room last night, reporting that he's had ongoing progressively worsening shortness of breath since discharge. He admits an associated nonproductive cough. Denies any fever, chills, myalgias, hemoptysis. Denies any chest pain, palpitations, lower extremity edema, syncope. A chest x-ray done on arrival, showed worsening airspace opacities within the left mid and lower lung zones compared to prior imaging. There was also suspected right lower lung atelectasis, and trace to small bilateral pleural effusions. Patient did test positive for COVID-19, possibly an incidental finding. Patient is currently sitting up in bed, on BiPAP with settings 12/6 and FiO2 of 60%. Appears fairly comfortable. Respiratory rate is high 20s to low 30s and is achieving tidal volumes around 400. CBC on arrival shows leukocytosis with WBC count of 16.9, hemoglobin 14.7, hematocrit 45.4, platelets 150. BMP shows sodium 133, potassium 4.1, chloride 92, serum bicarbonate 39, BUN 17, creatinine 0.43, glucose 99. Currently receiving normal saline at 100 ML's per hour. He was started on empiric Zosyn and azithromycin. Currently afebrile. Also receiving Ventolin HFA, Symbicort inhaler, and IV Decadron. Patient is being monitored closely on the cardiac stepdown unit. Progress note dated 03/25/2023. 73-year-old male admitted on March 24, with a diagnosis of possible left lower lobe pneumonia, and hypoxemic respiratory failure. Currently, the patient is on BiPAP, with settings of 12/6, and 70%. He has no IV fluids running at this time. He did test positive for coronavirus. He does have a history of lung cancer, adenocarcinoma. The only labs today include glucose of 110. Chest x-ray from March 24, shows a small to moderate-sized left pleural effusion, with increased small right pleural effusion. There is also some right lower lung consolidation. Progress note dated 03/26/2023. 73-year-old male admitted on March 24, with a diagnosis of possible left lower lobe pneumonia and hypoxemic respiratory failure. The patient is currently on AIRVO, with settings of 60 L/m and an FiO2 of 90%. He's not receiving any IV fluids. A chest x-ray is ordered for March 27. The only lab today with a glucose of 111. Clinically, the patient's doing about the same. Blood cultures are currently negative. Progress note dated 03/27/2023. The patient is seen today in room 368. He continues on AIRVO, with settings of 60 L/m, with an FiO2 of 90%. The chest x-ray done today, shows worsening infiltrates. Clinically, the patient appears reasonably stable. White count 18.6, hemoglobin 10.8, hematocrit 46.2, and platelet count was normal. Sodium 139, potassium 4.6, chlorides 96, CO2 39, BUN 18, and creatinine 0.48. Blood cultures are negative. Chest x-ray shows bilateral pleural/parenchymal opacities, left greater than right. Radiologist feels there may be some improvement. Progress note dated 03/28/2023. This is a 74-year-old male seen in room 368. The patient continues on AIRVO, at 60 L/m, and an FiO2 of 90%. The patient does feel better. He's not receiving any IV fluids. Labs today include only a glucose of 89. As mentioned yesterday, the chest x-ray, as interpreted by the radiologist, suggests some improvement. Progress note dated 03/29/2023. The patient is seen today in room 368. He continues on AIRVO, at 60 L/m, with an FiO2 of 90%. He is getting D5 with normal saline, at 50 mL an hour. She does feel like he is getting better. He looks relatively stable, and his respiratory status, despite being on AIRVO, appears stable. White count is 15.2, with a normal hemoglobin, hematocrit, and platelet count. Sodium 140, potassium 4.4, chlorides 99, CO2 39, BUN 25, and creatinine 0.43. Progress note dated 03/30/2023. The patient is seen today in room 368. He is on AIRVO, with settings of 60 L/m, for flow rate, and an FiO2, that has been dropped down to 80%. The patient continues on saline at 75 mL an hour. Chest x-ray ordered for tomorrow, March 31. No new labs today, other than a glucose of 99. 03/31 2023, the patient remains on high flow oxygen. He remains on 60 L an FiO2 has been done to 70%.the patient remains weak, short of breath, oxygenation. 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 At the same time, the patient was diagnosed having an acute Covid 19 infection.repeat chest x-ray from today shows a stable patchy infiltrates in the left along with small bilateral pleural effusion more so on the left. Meanwhile, the patient was diagnosed having Covid 19 infection on 04/19/2023 and the patient is currently on Decadron. The patient is also was found to have Enterobacter in his sputum and a bacterial pneumonia is suspected. His currently not receiving any antibiotic coverage. He is on Decadron 6 mg IV every 24 hours. He is on Ventolin HFA 4 times a day and Symbicort as maintenance. Rest of the home medications have been all resume. Labs showed a basic on of 12.5, hemoglobin 16.9, BUN is 23 with a creatinine of 0.4. His current pulse ox is 94%. Is getting progressively weak and more debilitated. 04/01 2023, the patient remains on high flow oxygen. This morning, the patient remains on 60 L of 70%. He was provided incentive spirometer. He denies having any worsening shortness of breath. He remains on Decadron 6 mg IV every 24 hours. He did have also patchy infiltrates on the left as discussed earlier and the patient was found to have Enterobacter in his sputum. Currently is afebrile. Hemodynamically stable. Oral intake is quite limited increase feeling weak and debilitated. Blood work was from yesterday and no recent blood work from today. His renal function is stable. Hemoglobin stable at 13.9. He is afebrile. Pulse ox is in order of 92%. No other significant events over the past 24 hours. Improvement is slow and limited at this point in time. Objective - Vital Signs Vital signs: Vital Signs Temp 98 F 04/01/23 08:00 Pulse 99 04/01/23 08:00 Resp 22 04/01/23 08:00 BP 114/70 04/01/23 08:00 Pulse Ox 92 L 04/01/23 08:00 FiO2 72 04/01/23 09:11 Intake & Output 03/31/23 04/01/23 04/01/23 18:59 06:59 18:59 Intake Total 0 480 Output Total 400 475 Balance -400 -475 480 Weight 74.389 kg Intake: Oral 0 480 Output: Urine 400 475 Other: Voiding Method Urinal Urinal # Bowel Movements 1 - Exam No acute distress, oriented 3. The patient is currently on AIRVO, at 60 L/m with an FiO2 of 70 %. Saturations are 92% HEENT examination is grossly unremarkable. Neck supple. Full range of motion. No adenopathy thyromegaly or neck vein distention. Cardiovascular examination reveals regular rhythm rate. S1-S2 normal. No S3 or S4. No discernible murmur noted. Lungs reveal scattered rhonchi, with a few scattered bibasilar crackles. No wheezes. Breath sounds are equal bilaterally. The breath sounds are quite diminished and the left lung base. Abdomen soft bowel sounds are heard. No masses or tenderness. Extremities are intact. No cyanosis clubbing or edema. Skin is without rash or lesion. Neurologic examination is brief but nonfocal. The patient is overall weak and he has generalized motor weakness in all 4 extremities. - Labs CBC & Chem 7: 03/31/23 08:22 03/31/23 08:22 Labs: Abnormal Lab Results - Last 24 Hours (Table) 03/31/23 03/31/23 Range/Units 16:25 20:41 POC Glucose (mg/dL) 149 H 132 H (70-110) mg/dL Microbiology - Last 24 Hours (Table) 03/29/23 12:54 Gram Stain - Final Sputum Sputum Culture - Final Enterobacter aerogenes Assessment and Plan Plan: Acute hypoxemic respiratory failure secondary to recurrent/persistent left lower lobe pneumonia. Chest x-ray on arrival demonstrates worsening opacities within the left mid and lower lung zones compared to his recent imaging. There was also suspected right lower lung atelectasis, and trace to small bilateral pleural effusions. Also, did test positive for COVID-19, possibly an incidental finding. The patient has also Enterobacter in his sputum and patchy infiltrates are seen in the left upper lobe and the left lower lobe. Rule out malignancy/primary bronchogenic carcinoma. Rule out bacterial infection/pneumonia as the patient was found to have Enterobacter in his sputum. In addition, he has advanced COPD, and a malignant left-sided pleural effusion. No major interval change in his overall condition and oxygenation over the past 24-48 hours. The patient remains on Decadron. Leukocytosis, secondary to above. Acute COPD exacerbation, secondary to above. Recent diagnosis of metastatic pulmonary adenocarcinoma based on pleural fluid cytology from a left-sided thoracentesis 03/11/23. History of right apical lung nodule measuring 10 x 7 mm June,. Benign essential hypertension. Hyperlipidemia. GERD. Chronic ongoing tobacco dependence. Plan: Recommend covering the gram-negative pulmonary infection with IV cefepime. Continue Decadron Pleural effusions are small Provide the patient incentive spirometer Repeat chest x-ray in the morning Repeat labs in the morning Wean down FiO2 as tolerated and keep the floor at 60 L Prognosis remains poor based above-mentioned comorbidities.
[2023-04-01] MEDS: CEFEPIME 2 GM in SODIUM CHLORIDE 0.9% 100 ML IVPB SCH ×2 (11:54→20:49)
--- NOTE | 2023-04-01 15:04 | P.PN ---
Subjective Progress Note Date: 04/01/23 Principal diagnosis: recently diagnosed with bronchogenic carcinoma, admitted with Covid 19 infection Patient recently admitted with:Covid 19 infection, recently diagnosed with b ronchogenic carcinoma recent culture demonstrates Enterobacter lungs IV antibiotic therapy was initiated I Dr. Nguyen 04/01/2023 Patient is awake alert oriented 3 vital signs are stable patient is still on BiPAP\HI-Flow oxygen patient's but has Enterobacter in the lungs was started on IV antibiotics slow to improve Objective - Vital Signs Vital signs: Vital Signs Temp 98.3 F 04/01/23 11:29 Pulse 81 04/01/23 11:29 Resp 24 04/01/23 11:29 BP 128/74 04/01/23 11:29 Pulse Ox 92 L 04/01/23 11:29 FiO2 72 04/01/23 11:42 Intake & Output 03/31/23 04/01/23 04/01/23 18:59 06:59 18:59 Intake Total 0 720 Output Total 400 475 950 Balance -400 -475 -230 Weight 74.389 kg Intake: Oral 0 720 Output: Urine 400 475 950 Other: Voiding Method Urinal Urinal # Bowel Movements 1 - Exam General: [Patient awake, alert and oriented times 3. Patient in no acute distress.] HEENT: [PERRL. EOMI. No pharyngeal erythema or exudate.] Neck: [No adenopathy.] Cardiac: [Heart regular in rate and rhythm. No S3. No S4. No clicks, rubs. No murmur.] Lungs:diminished breath sounds bilaterally Abdomen: [No mass. No organomegaly. Bowel sounds presnt and normoactive in all 4 quadrants.] Extremes: [No edema no cyanosis no claudication normal pulses] : [] Musculoskeletal: [No joint erythema, edema or tenderness.] Skin: [No rash.] Neurologic: [No lateralizing deficits. CN II - XII grossly intact.] Lymphatic: [No adenopathy.] - Labs CBC & Chem 7: 03/31/23 08:22 03/31/23 08:22 Labs: Abnormal Lab Results - Last 24 Hours (Table) 03/31/23 03/31/23 04/01/23 Range/Units 16:25 20:41 11:22 POC Glucose (mg/dL) 149 H 132 H 141 H (70-110) mg/dL Assessment and Plan (1) Acute respiratory failure with hypoxia Current Visit: Yes Status: Acute Code(s): J96.01 - ACUTE RESPIRATORY FAILURE WITH HYPOXIA SNOMED Code(s): 12419291 (2) COPD (chronic obstructive pulmonary disease) Current Visit: Yes Status: Acute Code(s): J44.9 - CHRONIC OBSTRUCTIVE PULMONARY DISEASE, UNSPECIFIED SNOMED Code(s): 06083741 (3) COVID-19 Current Visit: Yes Status: Acute Priority: High Code(s): U07.1 - COVID-19 SNOMED Code(s): 658555606 (4) Pneumonia Current Visit: Yes Status: Acute Code(s): J18.9 - PNEUMONIA, UNSPECIFIED ORGANISM SNOMED Code(s): 879041451 (5) Acute and chronic respiratory failure ([id number]) Current Visit: No Status: Acute Code(s): J96.20 - ACUTE AND CHR RESP FAILURE, UNSP W HYPOXIA OR HYPERCAPNIA SNOMED Code(s): 48240025 (6) Adenocarcinoma of lung Current Visit: Yes Status: Acute Priority: High Code(s): C34.90 - MALIGNANT NEOPLASM OF UNSP PART OF UNSP BRONCHUS OR LUNG SNOMED Code(s): 691134114 (7) Atherosclerosis of abdominal aorta Current Visit: No Status: Acute Code(s): I70.0 - ATHEROSCLEROSIS OF AORTA SNOMED Code(s): 327541499 Plan: IV antibiotic therapy per pulmonary pneumonia Covid 19 positive viremia IV Decadron BiPAP/high flow oxygen Further imaging as outpatient for bronchogenic carcinoma IE PET scan this patient has poor prognosis given his diagnosis and comorbidities Time with Patient: Greater than 30
[2023-04-01 16:28] LABS: Glucose,Whole Blood 102 mg/dL (70-110)
--- NOTE | 2023-04-01 17:08 | CDI ---
Documentation Clarification Form Date: 04/01/2023 04:46:14 PM From: Jaimie Paz RN, CCDS Admit Date: 03/23/2023 07:15:00 PM Patient Name: Thaddeus Rhodes Visit Number: [id number] Discharge Date: ATTENTION: The Clinical Documentation Specialists (CDI) and [facility] Coding Staff appreciate your assistance in clarifying documentation. Please respond to the clarification below the line at the bottom and electronically sign. The CDI & [facility] Coding staff will review the response and follow-up if needed. Please note: Queries are made part of the Legal Health Record. If you have any questions, please contact the author of this message via ITS. Dr. Herson Ross The patient has [insert documentation with location and date]. Based on this information and the findings below, is there an additional diagnosis that is clinically appropriate for this patient? History/Risk Factors: Clinical Indicators: 73-year-old male March 24, with a diagnosis of possible left lower lobe pneumonia, and hypoxemic respiratory failure. He did test positive for coronavirus. 03/23 WBC 16. Neutrophils 14.8. Na 133 Cl 92, CO2 39, BUN 17 Cr 0.43, Lactic acid 1.0, Covid -Detected Blood cultures: 03/23 VS: 124/79 98.1 87 94 % NRB Flow rate 10% 03/23 VS: 111/71 104 24 93% BIPAP Chest x-ray from March 24, shows a small to moderate-sized left pleural effusion, with increased small right pleural effusion. There is also some right lower lung consolidation. Treatment Zosyn 3.375 GM IVPB Once 03/23 then q 8 hrs -03/24 Zithromycin 500MG IVPB X2 BAGS Daily 03/23-03/24 Solu-Medrol 125 MG IV Once then 40MG IV Q 12 03/23-03/24 Decadron 6 MG IVP DAILY 03/24-04/01 Cefepime HCL 2GM IVPB Q 12 HRS 04/01 Duoneb Inhalation Q4 PRN per orders Is there an additional diagnosis that is clinically appropriate for this patient? [ ] Sepsis, present on admission [ ] Sepsis ruled out [ x ] Other, please specify ____adenocarcinoma of the lung positively identified with cytology from thoracentesis dated 03/11/2023 [ ] Unable to determine SIRS Criteria: 2 or more of the following may indicate SIRS Temperature < 96.8F (36C) or > 101.0F (38.3C) Heart Rate > 90 bpm Respiratory Rate > 20 breaths/min or PaCO2 < 32 mmHg White Blood Cell Count > 12,000 or < 4,000 cells/mm3 or > 10% bands (Template Last Reviewed: July 2022) MTDD
[2023-04-01 20:08] LABS: Glucose,Whole Blood 146 mg/dL (70-110)
[2023-04-01] MEDS: ATORVASTATIN 20 MG TAB PO SCH (20:48)
[2023-04-02 06:13] LABS: Glucose,Whole Blood 103 mg/dL (70-110)
[2023-04-02] MEDS: PANTOPRAZOLE 40 MG TABLET PO SCH (06:40)
--- NOTE | 2023-04-02 07:42 | XR ---
EXAMINATION TYPE: XR chest 1V DATE OF EXAM: 04/02/2023 COMPARISON: 03/31/2023 INDICATION: Left lung pneumonia TECHNIQUE: Single frontal view of the chest is obtained. FINDINGS: The heart size is normal. The pulmonary vasculature is normal. Diffuse increased lung markings are through the left lung periphery. Small bilateral pleural effusion s present. There is elevation of the right diaphragm. IMPRESSION: 1. Persistent stable peripheral left lung infiltrate. Follow-up is recommended. 2. Small bilateral pleural effusions
[2023-04-02] MEDS: DEXTROSE 5%-0.9% NACL 1,000 ML IV SCH ×2 (07:46→21:20)
[2023-04-02] MEDS: ZINC SULFATE 220 MG CAP PO SCH (07:47)
[2023-04-02] MEDS: lisinopriL 20 MG TAB PO SCH (07:47)
[2023-04-02] MEDS: HEPARIN SODIUM,PORCINE 5,000 UNIT/ML 1 ML VIAL SQ SCH ×2 (07:47→15:48)
[2023-04-02] MEDS: CHOLECALCIFEROL 25 MCG (1000 IU) TABLET PO SCH (07:47)
[2023-04-02] MEDS: ASCORBIC ACID 500 MG TAB PO SCH (07:47)
[2023-04-02] MEDS: FAMOTIDINE 20 MG TAB PO SCH (07:47)
[2023-04-02] MEDS: BISOPROLOL-HCTZ 5-6.25 MG 1 EACH TAB PO SCH (07:47)
[2023-04-02] MEDS: CEFEPIME 2 GM in SODIUM CHLORIDE 0.9% 100 ML IVPB SCH ×2 (07:47→21:20)
[2023-04-02] MEDS: DEXAMETHASONE SOD PHOSPHATE 10 MG/ML 1 ML VIAL IVP SCH (07:47)
[2023-04-02] MEDS: amLODIPine 10 MG TAB PO SCH (07:47)
[2023-04-02] MEDS: ESCITALOPRAM 10 MG TAB PO SCH (07:47)
[2023-04-02] MEDS: guaiFENesin 600 MG TABLET.ER PO SCH ×2 (07:48→21:19)
[2023-04-02] MEDS: SYMBICORT 160-4.5 MCG INHALER INHALATION SCH ×2 (08:41→20:28)
[2023-04-02] MEDS: ALBUTEROL HFA INHALER INHALATION SCH ×4 (08:41→20:27)
[2023-04-02 11:49] LABS: Glucose,Whole Blood 103 mg/dL (70-110)
--- NOTE | 2023-04-02 12:25 | P.PN ---
Subjective Progress Note Date: 04/02/23 Hypoxemic respiratory failure. I am seeing this patient in new consultation today 03/24/2023 for suspected left lower lobe pneumonia. Patient is a 73-year-old white male with past medical history significant for recent admission with left lower lobe pneumonia, discharged on March 17. During this admission, the patient was also found to have metastatic adenocarcinoma of the lung based on pleural fluid cytology from a left sided thoracentesis. He also has history of COPD, hypertension, hyperlipidemia, GERD, and ongoing chronic tobacco dependence. Patient is known to have a 10 mm x 7mm right upper lung nodule, originally seen back in June,. His PCP is Dr. Nichols. Chest CT from his most recent admission, March 07, demonstrated a right upper lung bronchus large airway occlusion concerning for obstructive mass. There was also a loculated left pleural effusion with left lung consolidation. The patient was treated with IV antibiotics and discharged home on Augmentin. He was established with an oncologist, and is reportedly going to undergo a PET scan outpatient. Patient returned to the emergency room last night, reporting that he's had ongoing progressively worsening shortness of breath since discharge. He admits an associated nonproductive cough. Denies any fever, chills, myalgias, hemoptysis. Denies any chest pain, palpitations, lower extremity edema, syncope. A chest x-ray done on arrival, showed worsening airspace opacities within the left mid and lower lung zones compared to prior imaging. There was also suspected right lower lung atelectasis, and trace to small bilateral pleural effusions. Patient did test positive for COVID-19, possibly an incidental finding. Patient is currently sitting up in bed, on BiPAP with settings 12/6 and FiO2 of 60%. Appears fairly comfortable. Respiratory rate is high 20s to low 30s and is achieving tidal volumes around 400. CBC on arrival shows leukocytosis with WBC count of 16.9, hemoglobin 14.7, hematocrit 45.4, platelets 150. BMP shows sodium 133, potassium 4.1, chloride 92, serum bicarbonate 39, BUN 17, creatinine 0.43, glucose 99. Currently receiving normal saline at 100 ML's per hour. He was started on empiric Zosyn and azithromycin. Currently afebrile. Also receiving Ventolin HFA, Symbicort inhaler, and IV Decadron. Patient is being monitored closely on the cardiac stepdown unit. Progress note dated 03/25/2023. 73-year-old male admitted on March 24, with a diagnosis of possible left lower lobe pneumonia, and hypoxemic respiratory failure. Currently, the patient is on BiPAP, with settings of 12/6, and 70%. He has no IV fluids running at this time. He did test positive for coronavirus. He does have a history of lung cancer, adenocarcinoma. The only labs today include glucose of 110. Chest x-ray from March 24, shows a small to moderate-sized left pleural effusion, with increased small right pleural effusion. There is also some right lower lung consolidation. Progress note dated 03/26/2023. 73-year-old male admitted on March 24, with a diagnosis of possible left lower lobe pneumonia and hypoxemic respiratory failure. The patient is currently on AIRVO, with settings of 60 L/m and an FiO2 of 90%. He's not receiving any IV fluids. A chest x-ray is ordered for March 27. The only lab today with a glucose of 111. Clinically, the patient's doing about the same. Blood cultures are currently negative. Progress note dated 03/27/2023. The patient is seen today in room 368. He continues on AIRVO, with settings of 60 L/m, with an FiO2 of 90%. The chest x-ray done today, shows worsening infiltrates. Clinically, the patient appears reasonably stable. White count 18.6, hemoglobin 10.8, hematocrit 46.2, and platelet count was normal. Sodium 139, potassium 4.6, chlorides 96, CO2 39, BUN 18, and creatinine 0.48. Blood cultures are negative. Chest x-ray shows bilateral pleural/parenchymal opacities, left greater than right. Radiologist feels there may be some improvement. Progress note dated 03/28/2023. This is a 74-year-old male seen in room 368. The patient continues on AIRVO, at 60 L/m, and an FiO2 of 90%. The patient does feel better. He's not receiving any IV fluids. Labs today include only a glucose of 89. As mentioned yesterday, the chest x-ray, as interpreted by the radiologist, suggests some improvement. Progress note dated 03/29/2023. The patient is seen today in room 368. He continues on AIRVO, at 60 L/m, with an FiO2 of 90%. He is getting D5 with normal saline, at 50 mL an hour. She does feel like he is getting better. He looks relatively stable, and his respiratory status, despite being on AIRVO, appears stable. White count is 15.2, with a normal hemoglobin, hematocrit, and platelet count. Sodium 140, potassium 4.4, chlorides 99, CO2 39, BUN 25, and creatinine 0.43. Progress note dated 03/30/2023. The patient is seen today in room 368. He is on AIRVO, with settings of 60 L/m, for flow rate, and an FiO2, that has been dropped down to 80%. The patient continues on saline at 75 mL an hour. Chest x-ray ordered for tomorrow, March 31. No new labs today, other than a glucose of 99. 03/31 2023, the patient remains on high flow oxygen. He remains on 60 L an FiO2 has been done to 70%.the patient remains weak, short of breath, oxygenation. 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 At the same time, the patient was diagnosed having an acute Covid 19 infection.repeat chest x-ray from today shows a stable patchy infiltrates in the left along with small bilateral pleural effusion more so on the left. Meanwhile, the patient was diagnosed having Covid 19 infection on 04/19/2023 and the patient is currently on Decadron. The patient is also was found to have Enterobacter in his sputum and a bacterial pneumonia is suspected. His currently not receiving any antibiotic coverage. He is on Decadron 6 mg IV every 24 hours. He is on Ventolin HFA 4 times a day and Symbicort as maintenance. Rest of the home medications have been all resume. Labs showed a basic on of 12.5, hemoglobin 16.9, BUN is 23 with a creatinine of 0.4. His current pulse ox is 94%. Is getting progressively weak and more debilitated. 04/01 2023, the patient remains on high flow oxygen. This morning, the patient remains on 60 L of 70%. He was provided incentive spirometer. He denies having any worsening shortness of breath. He remains on Decadron 6 mg IV every 24 hours. He did have also patchy infiltrates on the left as discussed earlier and the patient was found to have Enterobacter in his sputum. Currently is afebrile. Hemodynamically stable. Oral intake is quite limited increase feeling weak and debilitated. Blood work was from yesterday and no recent blood work from today. His renal function is stable. Hemoglobin stable at 13.9. He is afebrile. Pulse ox is in order of 92%. No other significant events over the past 24 hours. Improvement is slow and limited at this point in time. 13 2022, the patient remains on 60 L an FiO2 of 70% on high flow oxygen. The patient is essentially the same. The patient has a congested cough. Is unable to produce significant sputum. I'm very much interested in obtaining another sputum samples for cultures. Meanwhile, based on his earlier Enterobacter growth in his sputum, the patient is currently on IV cefepime. The patient remains on Decadron 6 mg IV every 24 hours. Repeat chest x-ray from today shows no interval change. There is persistent stable. There is persistent left mid and upper lobe pulmonary infiltrate. There is also small bilateral pleural effusion. The patient is weak. The patient is lethargic. He is arousable and is communicating. Oral intake is quite diminished at this point. He is afebrile. He is hemodynamically stable. Objective - Vital Signs Vital signs: Vital Signs Temp 98.1 F 04/02/23 08:00 Pulse 87 04/02/23 08:00 Resp 22 04/02/23 08:00 BP 116/69 04/02/23 08:00 Pulse Ox 95 04/02/23 08:00 FiO2 72 04/02/23 08:41 Intake & Output 04/01/23 04/02/23 04/02/23 18:59 06:59 18:59 Intake Total 1070 0 Output Total 2250 900 Balance -1180 -900 0 Intake: Oral 1070 0 Output: Urine 2250 900 Other: Voiding Method Urinal Urinal Urinal - Exam No acute distress, oriented 3. The patient is currently on AIRVO, at 60 L/m with an FiO2 of 70 %. Saturations are 92% HEENT examination is grossly unremarkable. Neck supple. Full range of motion. No adenopathy thyromegaly or neck vein distention. Cardiovascular examination reveals regular rhythm rate. S1-S2 normal. No S3 or S4. No discernible murmur noted. Lungs reveal scattered rhonchi, with a few scattered bibasilar crackles. No wheezes. Breath sounds are equal bilaterally. The breath sounds are quite diminished and the left lung base. Abdomen soft bowel sounds are heard. No masses or tenderness. Extremities are intact. No cyanosis clubbing or edema. Skin is without rash or lesion. Neurologic examination is brief but nonfocal. The patient is overall weak and he has generalized motor weakness in all 4 extremities. - Labs CBC & Chem 7: 03/31/23 08:22 03/31/23 08:22 Labs: Abnormal Lab Results - Last 24 Hours (Table) 04/01/23 04/01/23 Range/Units 11: 20:02 POC Glucose (mg/dL) 141 H 146 H (70-110) mg/dL Assessment and Plan Plan: Acute hypoxemic respiratory failure secondary to recurrent/persistent left lower lobe pneumonia. Chest x-ray on arrival demonstrates worsening opacities within the left mid and lower lung zones compared to his recent imaging. There was also suspected right lower lung atelectasis, and trace to small bilateral pleural effusions. Also, did test positive for COVID-19, possibly an incidental finding. The patient has also Enterobacter in his sputum and patchy infiltrates are seen in the left upper lobe and the left lower lobe. Rule out malignancy/primary bronchogenic carcinoma. Rule out bacterial infection/pneumonia as the patient was found to have Enterobacter in his sputum. In addition, he has advanced COPD, and a malignant left-sided pleural effusion. No major interval change in his overall condition and oxygenation over the past 24-48 hours. The patient remains on Decadron. Repeat chest x-ray from today done on 04/02/2023 shows a stable peripheral left lung pulmonary infiltrate and small bilateral pleural effusions. The patient continues to require high flow oxygen to maintain a oxygenation saturation above 90%. Is currently on 60 L with an FiO2 of 70% Leukocytosis, secondary to above. Acute COPD exacerbation, secondary to above. Recent diagnosis of metastatic pulmonary adenocarcinoma based on pleural fluid cytology from a left-sided thoracentesis 03/11/23. History of right apical lung nodule measuring 10 x 7 mm June,. Benign essential hypertension. Hyperlipidemia. GERD. Chronic ongoing tobacco dependence. Plan: Recommend covering the gram-negative pulmonary infection with IV cefepime. Previous sputum samples of showed Enterobacter growth and the patient is currently on IV cefepime. Aggressive pulmonary toileting and try to collect another sputum sample if possible Continue Decadron Pleural effusions are small and the pulmonary infiltrates. On today's chest x- ray Provide the patient incentive spirometer Repeat labs in the morning Wean down FiO2 if possible to maintain a saturation above 90% Prognosis remains poor based above-mentioned comorbidities. Prognosis poor
[2023-04-02 16:35] LABS: Glucose,Whole Blood 136 mg/dL (70-110)
--- NOTE | 2023-04-02 17:06 | P.PN ---
Subjective Progress Note Date: 04/02/23 Principal diagnosis: recently diagnosed with metastatic adenocarcinoma of the lung, admitted with Covid 19 infection Patient recently admitted with:Covid 19 infection, recently diagnosed with bronchogenic carcinoma recent culture demonstrates Enterobacter lungs IV antibiotic therapy was initiated I Dr. Nguyen 04/01/2023 Patient is awake alert oriented 3 vital signs are stable patient is still on BiPAP\HI-Flow oxygen patient's but has Enterobacter in the lungs was started on IV antibiotics slow to improve 04/02/2023 [place] alert oriented 3 vital signs are stable, known history of COPD, known history of hypertension, known history of hyperlipidemia recently diagnosed with adenocarcinoma of the lung, patient's is currently on BiPAP FiO2 of 60%. Currently on Zosyn and azithromycin Objective - Vital Signs Vital signs: Vital Signs Temp 98 F 04/02/23 16:00 Pulse 85 04/02/23 16:00 Resp 22 04/02/23 16:00 BP 113/69 04/02/23 16:00 Pulse Ox 94 L 04/02/23 16:00 FiO2 72 04/02/23 16:12 Intake & Output 04/01/23 04/02/23 04/02/23 18:59 06:59 18:59 Intake Total 1070 240 Output Total 2250 900 500 Balance -1180 -900 -260 Intake: Oral 1070 240 Output: Urine 2250 900 500 Other: Voiding Method Urinal Urinal Urinal - Exam General: [Patient awake, alert and oriented times 3. Patient in no acute distress.] HEENT: [PERRL. EOMI. No pharyngeal erythema or exudate.] Neck: [No adenopathy.] Cardiac: [Heart regular in rate and rhythm. No S3. No S4. No clicks, rubs. No murmur.] Lungs:diminished breath sounds bilaterally, scattered rhonchi Abdomen: [No mass. No organomegaly. Bowel sounds presnt and normoactive in all 4 quadrants.] Extremes: [No edema no cyanosis no claudication normal pulses] : [] Musculoskeletal: [No joint erythema, edema or tenderness.] Skin: [No rash.] Neurologic: [No lateralizing deficits. CN II - XII grossly intact.] Lymphatic: [No adenopathy.] - Labs CBC & Chem 7: 03/31/23 08:22 09/11/23 08:22 Labs: Abnormal Lab Results - Last 24 Hours (Table) 04/01/23 04/02/23 Range/Units 20:02 16:33 POC Glucose (mg/dL) 146 H 136 H (70-110) mg/dL Assessment and Plan (1) Acute respiratory failure with hypoxia Current Visit: Yes Status: Acute Code(s): J96.01 - ACUTE RESPIRATORY FAILURE WITH HYPOXIA SNOMED Code(s): 64940402 (2) COPD (chronic obstructive pulmonary disease) Current Visit: Yes Status: Acute Code(s): J44.9 - CHRONIC OBSTRUCTIVE PULMONARY DISEASE, UNSPECIFIED SNOMED Code(s): 33459711 (3) COVID-19 Current Visit: Yes Status: Acute Priority: High Code(s): U07.1 - COVID-19 SNOMED Code(s): 226525813 (4) Pneumonia Current Visit: Yes Status: Acute Code(s): J18.9 - PNEUMONIA, UNSPECIFIED ORGANISM SNOMED Code(s): 390612733 (5) Acute and chronic respiratory failure ([id number]) Current Visit: No Status: Acute Code(s): J96.20 - ACUTE AND CHR RESP NATALY LURE, UNSP W HYPOXIA OR HYPERCAPNIA SNOMED Code(s): 97880117 (6) Adenocarcinoma of lung Current Visit: Yes Status: Acute Priority: High Code(s): C34.90 - MALIGNANT NEOPLASM OF UNSP PART OF UNSP BRONCHUS OR LUNG SNOMED Code(s): 352547645 (7) Atherosclerosis of abdominal aorta Current Visit: No Status: Acute Code(s): I70.0 - ATHEROSCLEROSIS OF AORTA SNOMED Code(s): 324339473 Plan: IV antibiotic therapy per pulmonary pneumonia Covid 19 positive viremia IV Decadron BiPAP/high flow oxygen Further imaging as outpatient for bronchogenic carcinoma IE PET scan this patient has poor prognosis given his diagnosis and comorbidities Time with Patient: Greater than 30
[2023-04-02 20:22] LABS: Glucose,Whole Blood 150 mg/dL (70-110)
[2023-04-02] MEDS: ATORVASTATIN 20 MG TAB PO SCH (21:19)
[2023-04-03] MEDS: HEPARIN SODIUM,PORCINE 5,000 UNIT/ML 1 ML VIAL SQ SCH ×3 (01:07→15:42)
[2023-04-03 06:05] LABS: Glucose,Whole Blood 91 mg/dL (70-110)
[2023-04-03] MEDS: PANTOPRAZOLE 40 MG TABLET PO SCH (06:25)
[2023-04-03] MEDS: lisinopriL 20 MG TAB PO SCH (07:48)
[2023-04-03] MEDS: BISOPROLOL-HCTZ 5-6.25 MG 1 EACH TAB PO SCH (07:48)
[2023-04-03] MEDS: CEFEPIME 2 GM in SODIUM CHLORIDE 0.9% 100 ML IVPB SCH ×2 (07:48→20:53)
[2023-04-03] MEDS: CHOLECALCIFEROL 25 MCG (1000 IU) TABLET PO SCH (07:48)
[2023-04-03] MEDS: DEXAMETHASONE SOD PHOSPHATE 10 MG/ML 1 ML VIAL IVP SCH (07:49)
[2023-04-03] MEDS: ZINC SULFATE 220 MG CAP PO SCH (07:49)
[2023-04-03] MEDS: guaiFENesin 600 MG TABLET.ER PO SCH ×2 (07:49→20:53)
[2023-04-03] MEDS: ASCORBIC ACID 500 MG TAB PO SCH (07:49)
[2023-04-03] MEDS: amLODIPine 10 MG TAB PO SCH (07:49)
[2023-04-03] MEDS: FAMOTIDINE 20 MG TAB PO SCH (07:49)
[2023-04-03] MEDS: ESCITALOPRAM 10 MG TAB PO SCH (07:49)
[2023-04-03] MEDS: ALBUTEROL HFA INHALER INHALATION SCH ×4 (08:37→21:03)
[2023-04-03] MEDS: SYMBICORT 160-4.5 MCG INHALER INHALATION SCH ×2 (08:37→21:03)
[2023-04-03 11:35] LABS: Glucose,Whole Blood 108 mg/dL (70-110)
--- NOTE | 2023-04-03 12:16 | P.PN ---
Subjective Progress Note Date: 04/03/23 Hypoxemic respiratory failure. I am seeing this patient in new consultation today 03/24/2023 for suspected left lower lobe pneumonia. Patient is a 73-year-old white male with past medical history significant for recent admission with left lower lobe pneumonia, discharged on March 17. During this admission, the patient was also found to have metastatic adenocarcinoma of the lung based on pleural fluid cytology from a left sided thoracentesis. He also has history of COPD, hypertension, hyperlipidemia, GERD, and ongoing chronic tobacco dependence. Patient is known to have a 10 mm x 7mm right upper lung nodule, originally seen back in June,. His PCP is Dr. Nichols. Chest CT from his most recent admission, March 07, demonstrated a right upper lung bronchus large airway occlusion concerning for obstructive mass. There was also a loculated left pleural effusion with left lung consolidation. The patient was treated with IV antibiotics and discharged home on Augmentin. He was established with an oncologist, and is reportedly going to undergo a PET scan outpatient. Patient returned to the emergency room last night, reporting that he's had ongoing progressively worsening shortness of breath since discharge. He admits an associated nonproductive cough. Denies any fever, chills, myalgias, hemoptysis. Denies any chest pain, palpitations, lower extremity edema, syncope. A chest x-ray done on arrival, showed worsening airspace opacities within the left mid and lower lung zones compared to prior imaging. There was also suspected right lower lung atelectasis, and trace to small bilateral pleural effusions. Patient did test positive for COVID-19, possibly an incidental finding. Patient is currently sitting up in bed, on BiPAP with settings 12/6 and FiO2 of 60%. Appears fairly comfortable. Respiratory rate is high 20s to low 30s and is achieving tidal volumes around 400. CBC on arrival shows leukocytosis with WBC count of 16.9, hemoglobin 14.7, hematocrit 45.4, platelets 150. BMP shows sodium 133, potassium 4.1, chloride 92, serum bicarbonate 39, BUN 17, creatinine 0.43, glucose 99. Currently receiving normal saline at 100 ML's per hour. He was started on empiric Zosyn and azithromycin. Currently afebrile. Also receiving Ventolin HFA, Symbicort inhaler, and IV Decadron. Patient is being monitored closely on the cardiac stepdown unit. Progress note dated 03/25/2023. 73-year-old male admitted on March 24, with a diagnosis of possible left lower lobe pneumonia, and hypoxemic respiratory failure. Currently, the patient is on BiPAP, with settings of 12/6, and 70%. He has no IV fluids running at this time. He did test positive for coronavirus. He does have a history of lung cancer, adenocarcinoma. The only labs today include glucose of 110. Chest x-ray from March 24, shows a small to moderate-sized left pleural effusion, with increased small right pleural effusion. There is also some right lower lung consolidation. Progress note dated 03/26/2023. 73-year-old male admitted on March 24, with a diagnosis of possible left lower lobe pneumonia and hypoxemic respiratory failure. The patient is currently on AIRVO, with settings of 60 L/m and an FiO2 of 90%. He's not receiving any IV fluids. A chest x-ray is ordered for March 27. The only lab today with a glucose of 111. Clinically, the patient's doing about the same. Blood cultures are currently negative. Progress note dated 03/27/2023. The patient is seen today in room 368. He continues on AIRVO, with settings of 60 L/m, with an FiO2 of 90%. The chest x-ray done today, shows worsening infiltrates. Clinically, the patient appears reasonably stable. White count 18.6, hemoglobin 10.8, hematocrit 46.2, and platelet count was normal. Sodium 139, potassium 4.6, chlorides 96, CO2 39, BUN 18, and creatinine 0.48. Blood cultures are negative. Chest x-ray shows bilateral pleural/parenchymal opacities, left greater than right. Radiologist feels there may be some improvement. Progress note dated 03/28/2023. This is a 74-year-old male seen in room 368. The patient continues on AIRVO, at 60 L/m, and an FiO2 of 90%. The patient does feel better. He's not receiving any IV fluids. Labs today include only a glucose of 89. As mentioned yesterday, the chest x-ray, as interpreted by the radiologist, suggests some improvement. Progress note dated 03/29/2023. The patient is seen today in room 368. He continues on AIRVO, at 60 L/m, with an FiO2 of 90%. He is getting D5 with normal saline, at 50 mL an hour. She does feel like he is getting better. He looks relatively stable, and his respiratory status, despite being on AIRVO, appears stable. White count is 15.2, with a normal hemoglobin, hematocrit, and platelet count. Sodium 140, potassium 4.4, chlorides 99, CO2 39, BUN 25, and creatinine 0.43. Progress note dated 03/30/2023. The patient is seen today in room 368. He is on AIRVO, with settings of 60 L/m, for flow rate, and an FiO2, that has been dropped down to 80%. The patient continues on saline at 75 mL an hour. Chest x-ray ordered for tomorrow, March 31. No new labs today, other than a glucose of 99. 03/31 2023, the patient remains on high flow oxygen. He remains on 60 L an FiO2 has been done to 70%.the patient remains weak, short of breath, oxygenation. 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 At the same time, the patient was diagnosed having an acute Covid 19 infection.repeat chest x-ray from today shows a stable patchy infiltrates in the left along with small bilateral pleural effusion more so on the left. Meanwhile, the patient was diagnosed having Covid 19 infection on 04/19/2023 and the patient is currently on Decadron. The patient is also was found to have Enterobacter in his sputum and a bacterial pneumonia is suspected. His currently not receiving any antibiotic coverage. He is on Decadron 6 mg IV every 24 hours. He is on Ventolin HFA 4 times a day and Symbicort as maintenance. Rest of the home medications have been all resume. Labs showed a basic on of 12.5, hemoglobin 16.9, BUN is 23 with a creatinine of 0.4. His current pulse ox is 94%. Is getting progressively weak and more debilitated. 04/01 2023, the patient remains on high flow oxygen. This morning, the patient remains on 60 L of 70%. He was provided incentive spirometer. He denies having any worsening shortness of breath. He remains on Decadron 6 mg IV every 24 hours. He did have also patchy infiltrates on the left as discussed earlier and the patient was found to have Enterobacter in his sputum. Currently is afebrile. Hemodynamically stable. Oral intake is quite limited increase feeling weak and debilitated. Blood work was from yesterday and no recent blood work from today. His renal function is stable. Hemoglobin stable at 13.9. He is afebrile. Pulse ox is in order of 92%. No other significant events over the past 24 hours. Improvement is slow and limited at this point in time. 13 2022, the patient remains on 60 L an FiO2 of 70% on high flow oxygen. The patient is essentially the same. The patient has a congested cough. Is unable to produce significant sputum. I'm very much interested in obtaining another sputum samples for cultures. Meanwhile, based on his earlier Enterobacter growth in his sputum, the patient is currently on IV cefepime. The patient remains on Decadron 6 mg IV every 24 hours. Repeat chest x-ray from today shows no interval change. There is persistent stable. There is persistent left mid and upper lobe pulmonary infiltrate. There is also small bilateral pleural effusion. The patient is weak. The patient is lethargic. He is arousable and is communicating. Oral intake is quite diminished at this point. He is afebrile. He is hemodynamically stable. On today's evaluation of 04/03/2023, the patient states that he's feeling better. Oxygenation is still impaired and the patient is still requiring high flow oxygen. Currently is on 60 L an FiO2 of 70%. His pulse ox is ranging be tween 93-95%. He continues to have a congestive cough. IV cefepime was added. The patient remains on steroids. The chest x-ray from yesterday showed a stable consolidation left lung along with a small left-sided pleural effusion. No new labs are available from today. His tolerating diet. He remains on Decadron 6 mg IV every 24 hours. No other significant events overnight. He was encouraged to use incentive spirometer. Objective - Vital Signs Vital signs: Vital Signs Temp 98.4 F 04/03/23 11:36 Pulse 74 04/03/23 11:36 Resp 20 04/03/23 11:36 BP 122/66 04/03/23 11:36 Pulse Ox 93 L 04/03/23 11:36 FiO2 70 04/03/23 08:37 Intake & Output 04/02/23 04/03/23 04/03/23 18:59 06:59 18:59 Intake Total 280 Output Total 850 300 300 Balance -570 -300 -300 Intake: Oral 280 Output: Urine 850 300 300 Other: Voiding Method Urinal Urinal - Exam No acute distress, oriented 3. The patient is currently on AIRVO, at 60 L/m with an FiO2 of 70 %. Saturations are 92% HEENT examination is grossly unremarkable. Neck supple. Full range of motion. No adenopathy thyromegaly or neck vein distention. Cardiovascular examination reveals regular rhythm rate. S1-S2 normal. No S3 or S4. No discernible murmur noted. Lungs reveal scattered rhonchi, with a few scattered bibasilar crackles. No wheezes. Breath sounds are equal bilaterally. The breath sounds are quite diminished and the left lung base. Abdomen soft bowel sounds are heard. No masses or tenderness. Extremities are intact. No cyanosis clubbing or edema. Skin is without rash or lesion. Neurologic examination is brief but nonfocal. The patient is overall weak and he has generalized motor weakness in all 4 extremities. - Labs CBC & Chem 7: 03/31/23 08:22 03/31/23 08:22 Labs: Abnormal Lab Results - Last 24 Hours (Table) 04/02/23 04/02/23 Range/Units 16:33 20:20 POC Glucose (mg/dL) 136 H 150 H (70-110) mg/dL Assessment and Plan Plan: Acute hypoxemic respiratory failure secondary to recurrent/persistent left lower lobe pneumonia. Chest x-ray on arrival demonstrates worsening opacities within the left mid and lower lung zones compared to his recent imaging. There was also suspected right lower lung atelectasis, and trace to small bilateral pleural effusions. Also, did test positive for COVID-19, possibly an incidental finding. The patient has also Enterobacter in his sputum and patchy infiltrates are seen in the left upper lobe and the left lower lobe. Rule out malignancy/primary bronchogenic carcinoma. Rule out bacterial infection/pneumonia as the patient was found to have Enterobacter in his sputum. In addition, he has advanced COPD, and a malignant left-sided pleural effusion. No major interval change in his overall condition and oxygenation over the past 24-48 hours. The patient remains on Decadron. Repeat chest x-ray from today done on 04/02/2023 shows a stable peripheral left lung pulmonary infiltrate and small bilateral pleural effusions. The patient continues to require high flow oxygen to maintain a oxygenation saturation above 90%. Is currently on 60 L with an FiO2 of 70% Leukocytosis, secondary to above. Acute COPD exacerbation, secondary to above. Recent diagnosis of metastatic pulmonary adenocarcinoma based on pleural fluid cytology from a left-sided thoracentesis 03/11/23. History of right apical lung nodule measuring 10 x 7 mm June,. Benign essential hypertension. Hyperlipidemia. GERD. Chronic ongoing tobacco dependence. Plan: Oxygenation is still unchanged and the patient continues to be on 60 L an FiO2 of 70% Continue IV cefepime Collect another sputum sample Continue Decadron 6 mg IV every 24 hours Most recent chest x-ray from yesterday shows a stable pulmonary infiltrates/consolidation involving the left lung Provide the patient incentive spirometer Repeat labs in the morning Wean down FiO2 if possible to maintain a saturation above 90% Prognosis remains poor based above-mentioned comorbidities. Prognosis poor
--- NOTE | 2023-04-03 14:29 | P.PN ---
Subjective Progress Note Date: 04/03/23 Principal diagnosis: COVID Reports improvement in breathing today, but persisting SOB, continues on Airvo. Improvement in oxygen sat, SPO2 95%. Patient remains afebrile. Continues on cefepime Objective - Vital Signs Vital signs: Vital Signs Temp 98.4 F 04/03/23 11:36 Pulse 74 04/03/23 11:36 Resp 19 04/03/23 13:07 BP 122/66 04/03/23 11:36 Pulse Ox 93 L 04/03/23 11:36 FiO2 70 04/03/23 12:21 Intake & Output 04/02/23 04/03/23 04/03/23 18:59 06:59 18:59 Intake Total 280 110 Output Total 850 300 300 Balance -570 -300 -190 Intake: Oral 280 110 Output: Urine 850 300 300 Other: Voiding Method Urinal Urinal - Constitutional General appearance: Present: average body habitus, no acute distress - EENT Eyes: Present: anicteric sclerae, EOMI ENT: Present: hearing grossly normal - Respiratory Details: breathing labored - Cardiovascular Details: skin warm and dry - Integumentary Integumentary: Absent: cyanotic, jaundiced - Neurologic Neurologic Comment(s): grossly intact - Musculoskeletal Musculoskeletal: Present: generalized weakness - Psychiatric Psychiatric: Present: A&O x's 3, appropriate affect, intact judgment & insight - Labs CBC & Chem 7: 03/31/23 08:22 03/31/23 08:22 Labs: Abnormal Lab Results - Last 24 Hours (Table) 04/02/23 04/02/23 Range/Units 16:33 20:20 POC Glucose (mg/dL) 136 H 150 H (70-110) mg/dL - Imaging and Cardiology Chest x-ray: report reviewed Assessment and Plan (1) COVID-19 Current Visit: Yes Status: Acute Priority: High Code(s): U07.1 - COVID-19 SNOMED Code(s): 404325241 (2) Adenocarcinoma of lung Current Visit: Yes Status: Acute Priority: High Code(s): C34.90 - MALIGNANT NEOPLASM OF UNSP PART OF UNSP BRONCHUS OR LUNG SNOMED Code(s): 600911227 Plan: #Acute on chronic hypoxic respiratory failure secondary to COVID-19/pneumonia, superimposed on COPD -Continues on IV dexamethasone and zinc. Positive sputum culture for E. aerogenes. Continues on cefepime -Was previously on BiPAP this admission, remains on high flow nasal cannula. SPO2 95% today. Patient afebrile -Continue management per pulmonary and primary medicine teams #Adenocarcinoma of the lung -CTA of the chest on 03/07/2023 noted left pleural effusion along with superior mass in the left lung -CT abdomen/pelvis on 03/14/2023 with MRI brain on 03/14/2023 revealed no evidence of distant metastatic disease -Clinically, he appears to have stage BENNIE disease with malignant left effusion -We discussed that his lung cancer is consistent with stage BENNIE disease -NGS molecular profiling and PD-L1 expression requested on pleural fluid -Outpatient, he will need ctDNA test drawn in clinic to also assess for targetable mutations -No additional work-up is needed from an oncology standpoint inpatient -Will reschedule his clinic appointment following resolution of acute condition -He may also need his PET/CT rescheduled Updated patient on plan of care
[2023-04-03] MEDS: DEXTROSE 5%-0.9% NACL 1,000 ML IV SCH (15:43)
[2023-04-03 16:18] LABS: Glucose,Whole Blood 136 mg/dL (70-110)
[2023-04-03] MEDS: droNABinol 2.5 MG CAP PO SCH (16:38)
[2023-04-03 19:57] LABS: Glucose,Whole Blood 111 mg/dL (70-110)
[2023-04-03] MEDS: ATORVASTATIN 20 MG TAB PO SCH (20:53)
[2023-04-04] MEDS: HEPARIN SODIUM,PORCINE 5,000 UNIT/ML 1 ML VIAL SQ SCH ×3 (00:23→16:30)
[2023-04-04] MEDS: DEXTROSE 5%-0.9% NACL 1,000 ML IV SCH ×2 (01:14→16:28)
[2023-04-04 05:56] LABS: Glucose,Whole Blood 86 mg/dL (70-110)
[2023-04-04] MEDS: PANTOPRAZOLE 40 MG TABLET PO SCH (06:25)
[2023-04-04] MEDS: droNABinol 2.5 MG CAP PO SCH ×2 (06:25→16:31)
[2023-04-04] MEDS: CEFEPIME 2 GM in SODIUM CHLORIDE 0.9% 100 ML IVPB SCH ×2 (07:55→21:45)
[2023-04-04] MEDS: BISOPROLOL-HCTZ 5-6.25 MG 1 EACH TAB PO SCH (07:55)
[2023-04-04] MEDS: amLODIPine 10 MG TAB PO SCH (07:55)
[2023-04-04] MEDS: ASCORBIC ACID 500 MG TAB PO SCH (07:55)
[2023-04-04] MEDS: guaiFENesin 600 MG TABLET.ER PO SCH ×2 (07:56→21:45)
[2023-04-04] MEDS: FAMOTIDINE 20 MG TAB PO SCH (07:56)
[2023-04-04] MEDS: lisinopriL 20 MG TAB PO SCH (07:56)
[2023-04-04] MEDS: ESCITALOPRAM 10 MG TAB PO SCH (07:56)
[2023-04-04] MEDS: DEXAMETHASONE SOD PHOSPHATE 10 MG/ML 1 ML VIAL IVP SCH (07:56)
[2023-04-04] MEDS: ZINC SULFATE 220 MG CAP PO SCH (07:56)
[2023-04-04] MEDS: CHOLECALCIFEROL 25 MCG (1000 IU) TABLET PO SCH (07:57)
[2023-04-04] MEDS: ALBUTEROL HFA INHALER INHALATION SCH ×4 (08:20→21:10)
[2023-04-04] MEDS: SYMBICORT 160-4.5 MCG INHALER INHALATION SCH ×2 (08:20→21:10)
--- NOTE | 2023-04-04 09:02 | P.PN ---
Subjective Progress Note Date: 04/03/23 Principal diagnosis: recently diagnosed with metastatic adenocarcinoma of the lung, admitted with Covid 19 infection Patient recently admitted with:Covid 19 infection, recently diagnosed with bronchogenic carcinoma recent culture demonstrates Enterobacter lungs IV antibiotic therapy was initiated I Dr. Nguyen 04/01/2023 Patient is awake alert oriented 3 vital signs are stable patient is still on BiPAP\HI-Flow oxygen patient's but has Enterobacter in the lungs was started on IV antibiotics slow to improve 04/02/2023 [place] alert oriented 3 vital signs are stable, known history of COPD, known history of hypertension, known history of hyperlipidemia recently diagnosed with adenocarcinoma of the lung, patient's is currently on BiPAP FiO2 of 60%. Currently on Zosyn and azithromycin 04/03/2023 Patient is awake alert oriented 3, this patient is very hard of hearing, he is also on continuous BiPAP, and he can't hear conversations above the noise of the machine. Known history of COPD known history of hypertension on history of hyperlipidemia recently diagnosed with adenocarcinoma of the lung patient is currently on BiPAP with an FiO2 of 60% still currently on Zosyn and erythromycin still. Had conversation with the dietitian, and the nurse patient's dietary in take was minimal we started him on narrow no 2.5 mg to reduce nausea and enhance appetite will continue to follow Objective - Vital Signs Vital signs: Vital Signs Temp 98.0 F 04/04/23 07:52 Pulse 72 04/04/23 07:52 Resp 20 04/04/23 07:52 BP 132/72 04/04/23 07:52 Pulse Ox 95 04/04/23 08:20 FiO2 70 04/04/23 03:48 Intake & Output 04/03/23 04/04/23 04/04/23 18:59 06:59 18:59 Intake Total 110 10 Output Total 500 800 Balance -390 -790 Weight 74.389 kg Intake: IV 10 Invasive Line 2 10 Oral 110 Output: Urine 500 800 Other: Voiding Method Urinal Urinal Urinal # Voids 1 - Exam General: [Patient awake, alert and oriented times 3. Patient in no acute distress.] HEENT: [PERRL. EOMI. No pharyngeal erythema or exudate.] Neck: [No adenopathy.] Cardiac: [Heart regular in rate and rhythm. No S3. No S4. No clicks, rubs. No murmur.] Lungs:diminished breath sounds bilaterally, scattered rhonchi Abdomen: [No mass. No organomegaly. Bowel sounds presnt and normoactive in all 4 quadrants.] Extremes: [No edema no cyanosis no claudication normal pulses] : [] Musculoskeletal: [No joint erythema, edema or tenderness.] Skin: [No rash.] Neurologic: [No lateralizing deficits. CN II - XII grossly intact.] Lymphatic: [No adenopathy.] - Labs CBC & Chem 7: 03/31/23 08:22 03/31/23 08:22 Labs: Abnormal Lab Results - Last 24 Hours (Table) 04/03/23 04/03/23 Range/Units 16:16 19:54 POC Glucose (mg/dL) 136 H 111 H (70-110) mg/dL Assessment and Plan (1) Acute respiratory failure with hypoxia Current Visit: Yes Status: Acute Code(s): J96.01 - ACUTE RESPIRATORY FAILURE WITH HYPOXIA SNOMED Code(s): 66133341 (2) COPD (chronic obstructive pulmonary disease) Current Visit: Yes Status: Acute Code(s): J44.9 - CHRONIC OBSTRUCTIVE PULMONARY DISEASE, UNSPECIFIED SNOMED Code(s): 63504247 (3) COVID-19 Current Visit: Yes Status: Acute Priority: High Code(s): U07.1 - COVID-19 SNOMED Code(s): 998011875 (4) Pneumonia Current Visit: Yes Status: Acute Code(s): J18.9 - PNEUMONIA, UNSPECIFIED ORGANISM SNOMED Code(s): 117765770 (5) Acute and chronic respiratory failure ([id number]) Current Visit: No Status: Acute Code(s): J96.20 - ACUTE AND CHR RESP FAILURE, UNSP W HYPOXIA OR HYPERCAPNIA SNOMED Code(s): 25700371 (6) Adenocarcinoma of lung Current Visit: Yes Status: Acute Priority: High Code(s): C34.90 - MALIGNANT NEOPLASM OF UNSP PART OF UNSP BRONCHUS OR LUNG SNOMED Code(s): 564360657 (7) Atherosclerosis of abdominal aorta Current Visit: No Status: Acute Code(s): I70.0 - ATHEROSCLEROSIS OF AORTA SNOMED Code(s): 400507171 Plan: IV antibiotic therapy per pulmonary pneumonia Covid 19 positive viremia IV Decadron BiPAP/high flow oxygen started patient on Marinol 2.5 mg to enhance appetite and hopefully reduce nausea Further imaging as outpatient for bronchogenic carcinoma IE PET scan this patient has poor prognosis given his diagnosis and comorbidities Time with Patient: Greater than 30
[2023-04-04 11:40] LABS: Glucose,Whole Blood 99 mg/dL (70-110)
--- NOTE | 2023-04-04 12:34 | P.PN ---
Subjective Progress Note Date: 04/04/23 Hypoxemic respiratory failure. I am seeing this patient in new consultation today 03/24/2023 for suspected left lower lobe pneumonia. Patient is a 73-year-old white male with past medical history significant for recent admission with left lower lobe pneumonia, discharged on March 17. During this admission, the patient was also found to have metastatic adenocarcinoma of the lung based on pleural fluid cytology from a left sided thoracentesis. He also has history of COPD, hypertension, hyperlipidemia, GERD, and ongoing chronic tobacco dependence. Patient is known to have a 10 mm x 7mm right upper lung nodule, originally seen back in June,. His PCP is Dr. Nichols. Chest CT from his most recent admission, March 07, demonstrated a right upper lung bronchus large airway occlusion concerning for obstructive mass. There was also a loculated left pleural effusion with left lung consolidation. The patient was treated with IV antibiotics and discharged home on Augmentin. He was established with an oncologist, and is reportedly going to undergo a PET scan outpatient. Patient returned to the emergency room last night, reporting that he's had ongoing progressively worsening shortness of breath since discharge. He admits an associated nonproductive cough. Denies any fever, chills, myalgias, hemoptysis. Denies any chest pain, palpitations, lower extremity edema, syncope. A chest x-ray done on arrival, showed worsening airspace opacities within the left mid and lower lung zones compared to prior imaging. There was also suspected right lower lung atelectasis, and trace to small bilateral pleural effusions. Patient did test positive for COVID-19, possibly an incidental finding. Patient is currently sitting up in bed, on BiPAP with settings 12/6 and FiO2 of 60%. Appears fairly comfortable. Respiratory rate is high 20s to low 30s and is achieving tidal volumes around 400. CBC on arrival shows leukocytosis with WBC count of 16.9, hemoglobin 14.7, hematocrit 45.4, platelets 150. BMP shows sodium 133, potassium 4.1, chloride 92, serum bicarbonate 39, BUN 17, creatinine 0.43, glucose 99. Currently receiving normal saline at 100 ML's per hour. He was started on empiric Zosyn and azithromycin. Currently afebrile. Also receiving Ventolin HFA, Symbicort inhaler, and IV Decadron. Patient is being monitored closely on the cardiac stepdown unit. Progress note dated 03/25/2023. 73-year-old male admitted on March 24, with a diagnosis of possible left lower lobe pneumonia, and hypoxemic respiratory failure. Currently, the patient is on BiPAP, with settings of 12/6, and 70%. He has no IV fluids running at this time. He did test positive for coronavirus. He does have a history of lung cancer, adenocarcinoma. The only labs today include glucose of 110. Chest x-ray from March 24, shows a small to moderate-sized left pleural effusion, with increased small right pleural effusion. There is also some right lower lung consolidation. Progress note dated 03/26/2023. 73-year-old male admitted on March 24, with a diagnosis of possible left lower lobe pneumonia and hypoxemic respiratory failure. The patient is currently on AIRVO, with settings of 60 L/m and an FiO2 of 90%. He's not receiving any IV fluids. A chest x-ray is ordered for March 27. The only lab today with a glucose of 111. Clinically, the patient's doing about the same. Blood cultures are currently negative. Progress note dated 03/27/2023. The patient is seen today in room 368. He continues on AIRVO, with settings of 60 L/m, with an FiO2 of 90%. The chest x-ray done today, shows worsening infiltrates. Clinically, the patient appears reasonably stable. White count 18.6, hemoglobin 10.8, hematocrit 46.2, and platelet count was normal. Sodium 139, potassium 4.6, chlorides 96, CO2 39, BUN 18, and creatinine 0.48. Blood cultures are negative. Chest x-ray shows bilateral pleural/parenchymal opacities, left greater than right. Radiologist feels there may be some improvement. Progress note dated 03/28/2023. This is a 74-year-old male seen in room 368. The patient continues on AIRVO, at 60 L/m, and an FiO2 of 90%. The patient does feel better. He's not receiving any IV fluids. Labs today include only a glucose of 89. As mentioned yesterday, the chest x-ray, as interpreted by the radiologist, suggests some improvement. Progress note dated 03/29/2023. The patient is seen today in room 368. He continues on AIRVO, at 60 L/m, with an FiO2 of 90%. He is getting D5 with normal saline, at 50 mL an hour. She does feel like he is getting better. He looks relatively stable, and his respiratory status, despite being on AIRVO, appears stable. White count is 15.2, with a normal hemoglobin, hematocrit, and platelet count. Sodium 140, potassium 4.4, chlorides 99, CO2 39, BUN 25, and creatinine 0.43. Progress note dated 03/30/2023. The patient is seen today in room 368. He is on AIRVO, with settings of 60 L/m, for flow rate, and an FiO2, that has been dropped down to 80%. The patient continues on saline at 75 mL an hour. Chest x-ray ordered for tomorrow, March 31. No new labs today, other than a glucose of 99. 03/31 2023, the patient remains on high flow oxygen. He remains on 60 L an FiO2 has been done to 70%.the patient remains weak, short of breath, oxygenation. 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 At the same time, the patient was diagnosed having an acute Covid 19 infection.repeat chest x-ray from today shows a stable patchy infiltrates in the left along with small bilateral pleural effusion more so on the left. Meanwhile, the patient was diagnosed having Covid 19 infection on 04/19/2023 and the patient is currently on Decadron. The patient is also was found to have Enterobacter in his sputum and a bacterial pneumonia is suspected. His currently not receiving any antibiotic coverage. He is on Decadron 6 mg IV every 24 hours. He is on Ventolin HFA 4 times a day and Symbicort as maintenance. Rest of the home medications have been all resume. Labs showed a basic on of 12.5, hemoglobin 16.9, BUN is 23 with a creatinine of 0.4. His current pulse ox is 94%. Is getting progressively weak and more debilitated. 04/01 2023, the patient remains on high flow oxygen. This morning, the patient remains on 60 L of 70%. He was provided incentive spirometer. He denies having any worsening shortness of breath. He remains on Decadron 6 mg IV every 24 hours. He did have also patchy infiltrates on the left as discussed earlier and the patient was found to have Enterobacter in his sputum. Currently is afebrile. Hemodynamically stable. Oral intake is quite limited increase feeling weak and debilitated. Blood work was from yesterday and no recent blood work from today. His renal function is stable. Hemoglobin stable at 13.9. He is afebrile. Pulse ox is in order of 92%. No other significant events over the past 24 hours. Improvement is slow and limited at this point in time. 13 2022, the patient remains on 60 L an FiO2 of 70% on high flow oxygen. The patient is essentially the same. The patient has a congested cough. Is unable to produce significant sputum. I'm very much interested in obtaining another sputum samples for cultures. Meanwhile, based on his earlier Enterobacter growth in his sputum, the patient is currently on IV cefepime. The patient remains on Decadron 6 mg IV every 24 hours. Repeat chest x-ray from today shows no interval change. There is persistent stable. There is persistent left mid and upper lobe pulmonary infiltrate. There is also small bilateral pleural effusion. The patient is weak. The patient is lethargic. He is arousable and is communicating. Oral intake is quite diminished at this point. He is afebrile. He is hemodynamically stable. On today's evaluation of 04/03/2023, the patient states that he's feeling better. Oxygenation is still impaired and the patient is still requiring high flow oxygen. Currently is on 60 L an FiO2 of 70%. His pulse ox is ranging be tween 93-95%. He continues to have a congestive cough. IV cefepime was added. The patient remains on steroids. The chest x-ray from yesterday showed a stable consolidation left lung along with a small left-sided pleural effusion. No new labs are available from today. His tolerating diet. He remains on Decadron 6 mg IV every 24 hours. No other significant events overnight. He was encouraged to use incentive spirometer. On today's evaluation of 04/04/2023, the patient remains on Airvo at 60 L an FiO2 of 70%. Is essentially the same setting over the past several days. No major changes in his oxygenation. Continues to produce copious amount of secretions and his cough is wet and congested and the patient is producing mucus. He does not have another complaints at this point. He is weak. Oral intake is quite diminished. Is on IV cefepime. He remains on Decadron. Unfortunately, he is not making much of progress. I discussed the case with his over the phone and explained to do situation. Current pulse ox is in order of 94-95% on the current high flow oxygen setting. Objective - Vital Signs Vital signs: Vital Signs Temp 98.0 F 04/04/23 07:52 Pulse 78 04/04/23 11:44 Resp 19 04/04/23 11:44 BP 125/71 04/04/23 11:44 Pulse Ox 94 L 04/04/23 11:44 FiO2 70 04/04/23 11:44 Intake & Output 04/03/23 04/04/23 04/04/23 18:59 06:59 18:59 Intake Total 110 10 240 Output Total 500 800 400 Balance -390 -790 -160 Weight 74.389 kg Intake: IV 10 Invasive Line 2 10 Oral 110 240 Output: Urine 500 800 400 Other: Voiding Method Urinal Urinal Urinal # Voids 1 - Labs CBC & Chem 7: 03/31/23 08:22 03/31/23 08:22 Labs: Abnormal Lab Results - Last 24 Hours (Table) 04/03/23 04/03/23 Range/Units 16:16 19:54 POC Glucose (mg/dL) 136 H 111 H (70-110) mg/dL Assessment and Plan Plan: Acute hypoxemic respiratory failure secondary to recurrent/persistent left lower lobe pneumonia. Chest x-ray on arrival demonstrates worsening opacities within the left mid and lower lung zones compared to his recent imaging. There was also suspected right lower lung atelectasis, and trace to small bilateral pleural effusions. Also, did test positive for COVID-19, possibly an incidental finding. The patient has also Enterobacter in his sputum and patchy infiltrates are seen in the left upper lobe and the left lower lobe. Rule out malignancy/primary bronchogenic carcinoma. Rule out bacterial infec tion/pneumonia as the patient was found to have Enterobacter in his sputum. In addition, he has advanced COPD, and a malignant left-sided pleural effusion. No major interval change in his overall condition and oxygenation over the past 24- 48 hours. The patient remains on Decadron. Repeat chest x-ray from today done on 04/02/2023 shows a stable peripheral left lung pulmonary infiltrate and small bilateral pleural effusions. The patient continues to require high flow oxygen to maintain a oxygenation saturation above 90%. Is currently on 60 L with an FiO2 of 70% Leukocytosis, secondary to above. Acute COPD exacerbation, secondary to above. Recent diagnosis of metastatic pulmonary adenocarcinoma based on pleural fluid cytology from a left-sided thoracentesis 03/11/23. History of right apical lung nodule measuring 10 x 7 mm June,. Benign essential hypertension. Hyperlipidemia. GERD. Chronic ongoing tobacco dependence. Plan: Continue aggressive pulmonary toileting Repeat chest x-ray in the morning Oxygenation is still unchanged and the patient continues to be on 60 L an FiO2 of 70% Continue IV cefepime Awaiting another sputum sample for Gram stain and culture Continue Decadron 6 mg IV every 24 hours Most recent chest x-ray from yesterday shows a stable pulmonary infiltrates/consolidation involving the left lung Provide the patient incentive spirometer Repeat labs in the morning Wean down FiO2 if possible to maintain a saturation above 90% Prognosis remains poor based above-mentioned comorbidities. Prognosis poor Case was discussed with the over the phone. The patient has stage IV adenocarcinoma of the lung which by itself is a very poor prognosis.
[2023-04-04 16:24] LABS: Glucose,Whole Blood 165 mg/dL (70-110)
[2023-04-04] MEDS ORDERED: FUROSEMIDE 10 MG/ML 10 ML VIAL IV STA (16:49)
--- NOTE | 2023-04-04 17:35 | P.PN ---
Subjective Progress Note Date: 04/04/23 Principal diagnosis: COVID, lung adenocarcinoma Family meeting held today with Dr. Quintin Hays. Spouse and family friend at bedside Continues on Airvo. Some improvement in oxygen sat, SPO2 95%. Patient remains afebrile. Continues on cefepime Objective - Vital Signs Vital signs: Vital Signs Temp 98.0 F 04/04/23 07:52 Pulse 88 04/04/23 15:45 Resp 20 04/04/23 15:45 BP 119/72 04/04/23 15:45 Pulse Ox 94 L 04/04/23 15:45 FiO2 70 04/04/23 15:45 Intake & Output 04/03/23 04/04/23 04/04/23 18:59 06:59 18:59 Intake Total 110 10 480 Output Total 500 800 400 Balance -390 -790 80 Weight 74.389 kg 74.389 kg Intake: IV 10 Invasive Line 2 10 Oral 110 480 Output: Urine 500 800 400 Other: Voiding Method Urinal Urinal Urinal # Voids 1 - Constitutional General appearance: Present: no acute distress, thin - EENT Eyes: Present: anicteric sclerae, EOMI ENT: Present: hearing grossly normal - Respiratory Details: breathing labored - Cardiovascular Details: skin warm and dry - Integumentary Integumentary: Absent: cyanotic, jaundiced - Musculoskeletal Musculoskeletal: Present: generalized weakness - Psychiatric Psychiatric: Present: A&O x's 3, appropriate affect, intact judgment & insight - Labs CBC & Chem 7: 03/31/23 08:22 03/31/23 08:22 Labs: Abnormal Lab Results - Last 24 Hours (Table) 04/03/23 04/04/23 Range/Units 19:54 16:22 POC Glucose (mg/dL) 111 H 165 H (70-110) mg/dL Assessment and Plan (1) COVID-19 Current Visit: Yes Status: Acute Priority: High Code(s): U07.1 - COVID-19 SNOMED Code(s): 148902123 (2) Adenocarcinoma of lung Current Visit: Yes Status: Acute Priority: High Code(s): C34.90 - MALIGNANT NEOPLASM OF UNSP PART OF UNSP BRONCHUS OR LUNG SNOMED Code(s): 212623198 (3) Pneumonia Current Visit: Yes Status: Acute Priority: High Code(s): J18.9 - PNEUMONIA, UNSPECIFIED ORGANISM SNOMED Code(s): 470006252 Plan: #Acute on chronic hypoxic respiratory failure secondary to COVID-19/pneumonia, superimposed on COPD -Continues on IV dexamethasone and zinc. Positive sputum culture for E. aerogenes. Continues on cefepime -Was previously on BiPAP this admission, remains on high flow nasal cannula. SPO2 95% today. Patient afebrile -Continue management per pulmonary and primary medicine teams #Adenocarcinoma of the lung -CTA of the chest on 03/07/2023 noted left pleural effusion along with superior mass in the left lung -CT abdomen/pelvis on 03/14/2023 with MRI brain on 03/14/2023 revealed no evidence of distant metastatic disease -Clinically, he appears to have stage BENNIE disease with malignant left effusion -We discussed that his lung cancer is consistent with stage BENNIE disease -NGS molecular profiling and PD-L1 ordered on specimen. Revealed PD-L1 less than 1%, no targetable mutations on NGS. Low TMB -Outpatient, he will need ctDNA test drawn in clinic to further assess for targetable mutations -No additional work-up is needed from an oncology standpoint inpatient Family meeting held today with Dr. Quintin Hays. Discussed diagnosis of stage IV lung adenocarcioma and workup as described above. That his cancer is treatable but not curable. And that his worsening SOB and breathing status is secondary to underlying COPD and lung cancer superimposed by Covid and bacterial pneumonia. Patient is agreeable with [facility] testing outpt to further asses for targetable mutations. Outpt PET scan scheduled for 04/25/23. It was discussed due to his poor PS, he is not candidate for systemic chemo. Discussed immunotherapy as potential treatment option. Patient and spouse are agreeable with immunotherapy, pending his course of hospitalization and resolution of acute condition. Will plan for clinic f/u upon discharge. CODE status discussed with pt and . After lengthy discussion, patient decided to change code status to DNR/DNI. Nursing staff has been updated Dr arnulfoests: I performed a history and physical examination of this patient, developed impression and plan of care. Discussed with dictator. I agree with dictators note, documented as a scribe. Time with Patient: Greater than 30
--- NOTE | 2023-04-04 17:48 | P.PN ---
Subjective Progress Note Date: 04/04/23 Principal diagnosis: recently diagnosed with metastatic adenocarcinoma of the lung, admitted with Covid 19 infection Patient recently admitted with:Covid 19 infection, recently diagnosed with bronchogenic carcinoma recent culture demonstrates Enterobacter lungs IV antibiotic therapy was initiated I Dr. Nguyen 04/01/2023 Patient is awake alert oriented 3 vital signs are stable patient is still on BiPAP\HI-Flow oxygen patient's but has Enterobacter in the lungs was started on IV antibiotics slow to improve 04/02/2023 Manley alert oriented 3 vital signs are stable, known history of COPD, known history of hypertension, known history of hyperlipidemia recently diagnosed with adenocarcinoma of the lung, patient's is currently on BiPAP FiO2 of 60%. Currently on Zosyn and azithromycin 04/03/2023 Patient is awake alert oriented 3, this patient is very hard of hearing, he is also on continuous BiPAP, and he can't hear conversations above the noise of the machine. Known history of COPD known history of hypertension on history of hyperlipidemia recently diagnosed with adenocarcinoma of the lung patient is currently on BiPAP with an FiO2 of 60% still currently on Zosyn and erythromycin still. Had conversation with the dietitian, and the nurse patient's dietary in take was minimal we started him on narrow no 2.5 mg to reduce nausea and enhance appetite will continue to follow 04/04/2023 patient is awake alert oriented 3 currently on continuous BiPAP , started patient on Marinol yesterday oral intake is improving. Patient's lungs started sounding wet stopped fluids his IV is kvo, 80mg of Lasix given, outputs almost immediately improved we'll continue to follow progress, patient is currently on BiPAP FiO2 still 60% currently on Zosyn and erythromycin. Objective - Vital Signs Vital signs: Vital Signs Temp 98.0 F 04/04/23 07:52 Pulse 88 04/04/23 15:45 Resp 20 04/04/23 15:45 BP 119/72 04/04/23 15:45 Pulse Ox 94 L 04/04/23 15:45 FiO2 70 04/04/23 15:45 Intake & Output 04/03/23 04/04/23 04/04/23 18:59 06:59 18:59 Intake Total 110 10 480 Output Total 500 800 400 Balance -390 -790 80 Weight 74.389 kg 74.389 kg Intake: IV 10 Invasive Line 2 10 Oral 110 480 Output: Urine 500 800 400 Other: Voiding Method Urinal Urinal Urinal # Voids 1 - Exam General: [Patient awake, alert and oriented times 3. Patient in no acute distress.] HEENT: [PERRL. EOMI. No pharyngeal erythema or exudate.] Neck: [No adenopathy.] Cardiac: [Heart regular in rate and rhythm. No S3. No S4. No clicks, rubs. No murmur.] Lungs:diminished breath sounds bilaterally, scattered rhonchi Abdomen: [No mass. No organomegaly. Bowel sounds presnt and normoactive in all 4 quadrants.] Extremes: [No edema no cyanosis no claudication normal pulses] : [] Musculoskeletal: [No joint erythema, edema or tenderness.] Skin: [No rash.] Neurologic: [No lateralizing deficits. CN II - XII grossly intact.] Lymphatic: [No adenopathy.] - Labs CBC & Chem 7: 03/31/23 08:22 03/31/23 08:22 Labs: Abnormal Lab Results - Last 24 Hours (Table) 04/03/23 04/04/23 Range/Units 19:54 16:22 POC Glucose (mg/dL) 111 H 165 H (70-110) mg/dL Assessment and Plan (1) Acute respiratory failure with hypoxia Current Visit: Yes Status: Acute Code(s): J96.01 - ACUTE RESPIRATORY FAILURE WITH HYPOXIA SNOMED Code(s): 82719989 (2) COPD (chronic obstructive pulmonary disease) Current Visit: Yes Status: Acute Code(s): J44.9 - CHRONIC OBSTRUCTIVE PULMONARY DISEASE, UNSPECIFIED SNOMED Code(s): 50754979 (3) COVID-19 Current Visit: Yes Status: Acute Priority: High Code(s): U07.1 - COVID-19 SNOMED Code(s): 929010833 (4) Pneumonia Current Visit: Yes Status: Acute Priority: High Code(s): J18.9 - PNEUMON IA, UNSPECIFIED ORGANISM SNOMED Code(s): 060577266 (5) Acute and chronic respiratory failure ([id number]) Current Visit: No Status: Acute Code(s): J96.20 - ACUTE AND CHR RESP FAILURE, UNSP W HYPOXIA OR HYPERCAPNIA SNOMED Code(s): 09209659 (6) Adenocarcinoma of lung Current Visit: Yes Status: Acute Priority: High Code(s): C34.90 - MALIGNANT NEOPLASM OF UNSP PART OF UNSP BRONCHUS OR LUNG SNOMED Code(s): 641639316 (7) Atherosclerosis of abdominal aorta Current Visit: No Status: Acute Code(s): I70.0 - ATHEROSCLEROSIS OF AORTA SNOMED Code(s): 894034845 Plan: IV antibiotic therapy per pulmonary pneumonia Covid 19 positive viremia IV Decadron BiPAP/high flow oxygen started patient on Marinol 2.5 mg to enhance appetite and hopefully reduce nausea 80 mg Lasix IV push, we'll continue to follow outputs Further imaging as outpatient for bronchogenic carcinoma IE PET scan this patient has poor prognosis given his diagnosis and comorbidities Time with Patient: Greater than 30
[2023-04-04 20:13] LABS: Glucose,Whole Blood 126 mg/dL (70-110)
[2023-04-04] MEDS: ATORVASTATIN 20 MG TAB PO SCH (21:45)
[2023-04-05] MEDS: HEPARIN SODIUM,PORCINE 5,000 UNIT/ML 1 ML VIAL SQ SCH ×3 (00:21→18:02)
[2023-04-05 06:18] LABS: Glucose,Whole Blood 90 mg/dL (70-110)
[2023-04-05] MEDS: PANTOPRAZOLE 40 MG TABLET PO SCH (06:58)
[2023-04-05] MEDS: SYMBICORT 160-4.5 MCG INHALER INHALATION SCH ×2 (07:30→21:26)
[2023-04-05] MEDS: ALBUTEROL HFA INHALER INHALATION SCH ×4 (07:30→21:26)
[2023-04-05 08:10] LABS: Basophils % (A) 0 %; Eosinophils # (A) 0.1 k/uL (0-0.7); Eosinophils % (A) 0 %; HCT 44.1 % (39.0-53.0); HGB 14.1 gm/dL (13.0-17.5); Lymphocytes # (A) 0.7 k/uL (1.0-4.8); Lymphocytes % (A) 5 %; MCH 29.3 pg (25.0-35.0); MCV 91.4 fL (80.0-100.0); Mean Platelet Volume 8.9; Monocytes # (A) 0.9 k/uL (0-1.0); Monocytes % (A) 7 %; Neutrophils # (A) 11.7 k/uL (1.3-7.7); Neutrophils % (A) 87 %; Platelet Count 160 k/uL (150-450); RBC 4.83 m/uL (4.30-5.90); RDW 13.9 % (11.5-15.5); WBC 13.4 k/uL (3.8-10.6)
--- NOTE | 2023-04-05 08:17 | XR ---
EXAMINATION TYPE: XR chest 1V DATE OF EXAM: 04/05/2023 HISTORY: Shortness of breath. COMPARISON: 04/02/2023 TECHNIQUE: Single view of the chest is submitted. FINDINGS: Demonstrated are scattered senescent parenchymal change. Patchy infiltrate persists throughout the lung and at the right lung base. No significant interval ch marty is appreciated. The heart is stable. Hilar and mediastinal structures are within normal limits. Degenerative changes are seen of the dorsal spine. IMPRESSION: 1. Patchy infiltrate persists throughout the lung and at the right lung base. No significant interva l change is appreciated.
[2023-04-05 08:31] LABS: ALT 72 U/L (4-49); AST 40 U/L (17-59); African American GFR (CKD) >90 (>60 ml/min/1.73 sqM); Albumin 2.8 g/dL (3.5-5.0); Alkaline Phosphatase 102 U/L (38-126); Blood Urea Nitrogen 20 mg/dL (9-20); Calcium 8.8 mg/dL (8.4-10.2); Chloride 87 mmol/L (98-107); Glucose 84 mg/dL (74-99); Non-African American GFR(CKD) >90 (>60 ml/min/1.73 sqM); Potassium 4.3 mmol/L (3.5-5.1); Sodium 132 mmol/L (137-145); Total Bilirubin 0.8 mg/dL (0.2-1.3); Total Protein 6.2 g/dL (6.3-8.2)
[2023-04-05 08:40] LABS: Anion Gap 0 mmol/L
[2023-04-05 08:48] LABS: Carbon Dioxide 45 mmol/L (22-30)
[2023-04-05] MEDS: BISOPROLOL-HCTZ 5-6.25 MG 1 EACH TAB PO SCH (09:20)
[2023-04-05] MEDS: guaiFENesin 600 MG TABLET.ER PO SCH ×2 (09:20→21:54)
[2023-04-05] MEDS: DEXAMETHASONE SOD PHOSPHATE 10 MG/ML 1 ML VIAL IVP SCH (09:20)
[2023-04-05] MEDS: ASCORBIC ACID 500 MG TAB PO SCH (09:20)
[2023-04-05] MEDS: CHOLECALCIFEROL 25 MCG (1000 IU) TABLET PO SCH (09:20)
[2023-04-05] MEDS: lisinopriL 20 MG TAB PO SCH (09:20)
[2023-04-05] MEDS: amLODIPine 10 MG TAB PO SCH (09:20)
[2023-04-05] MEDS: ZINC SULFATE 220 MG CAP PO SCH (09:20)
[2023-04-05] MEDS: droNABinol 2.5 MG CAP PO SCH ×2 (09:20→18:02)
[2023-04-05] MEDS: FAMOTIDINE 20 MG TAB PO SCH (09:21)
[2023-04-05] MEDS: ESCITALOPRAM 10 MG TAB PO SCH (09:21)
[2023-04-05] MEDS: CEFEPIME 2 GM in SODIUM CHLORIDE 0.9% 100 ML IVPB SCH ×2 (09:21→18:02)
--- NOTE | 2023-04-05 10:32 | P.PN ---
Subjective Progress Note Date: 04/05/23 Principal diagnosis: recently diagnosed with metastatic adenocarcinoma of the lung, admitted with Covid 19 infection Patient recently admitted with:Covid 19 infection, recently diagnosed with bronchogenic carcinoma recent culture demonstrates Enterobacter lungs IV antibiotic therapy was initiated I Dr. Nguyen 04/01/2023 Patient is awake alert oriented 3 vital signs are stable patient is still on BiPAP\HI-Flow oxygen patient's but has Enterobacter in the lungs was started on IV antibiotics slow to improve 04/02/2023 [place] alert oriented 3 vital signs are stable, known history of COPD, known history of hypertension, known history of hyperlipidemia recently diagnosed with adenocarcinoma of the lung, patient's is currently on BiPAP FiO2 of 60%. Currently on Zosyn and azithromycin 04/03/2023 Patient is awake alert oriented 3, this patient is very hard of hearing, he is also on continuous BiPAP, and he can't hear conversations above the noise of the machine. Known history of COPD known history of hypertension on history of hyperlipidemia recently diagnosed with adenocarcinoma of the lung patient is currently on BiPAP with an FiO2 of 60% still currently on Zosyn and erythromycin still. Had conversation with the dietitian, and the nurse patient's dietary in take was minimal we started him on narrow no 2.5 mg to reduce nausea and enhance appetite will continue to follow 04/04/2023 patient is awake alert oriented 3 currently on continuous BiPAP , started patient on Marinol yesterday oral intake is improving. Patient's lungs started sounding wet stopped fluids his IV is kvo, 80mg of Lasix given, outputs almost immediately improved we'll continue to follow progress, patient is currently on BiPAP FiO2 still 60% currently on Zosyn and erythromycin. 04/05/2023 Patient is awake alert oriented 3 currently on high flow oxygen FiO2 90%, family meeting with pulmonary noted, patient's new CODE STATUS DNR/DNI noted and appreciated, plan at this time is to progress towards discharge Known malignant left effusion, known COPD secondary to cigarette smoking, patient experiencing acute on chronic respiratory failure secondary to COVID- 19/pneumonia superimposed on COPD Objective - Vital Signs Vital signs: Vital Signs Temp 98.0 F 04/05/23 08:00 Pulse 103 H 04/05/23 08:00 Resp 22 04/05/23 08:00 BP 113/71 04/05/23 08:00 Pulse Ox 95 09/16/23 08:00 FiO2 70 04/05/23 07:33 Intake & Output 04/04/23 04/05/23 04/05/23 18:59 06:59 18:59 Intake Total 480 640 Output Total 1300 450 Balance -820 190 Weight 74.389 kg Intake: Intake, IV Titration 100 Amount Cefepime 2 gm In Sodium 100 Chloride 0.9% 100 ml @ 25 mls/hr IVPB Q12HR [facility] Rx #:[id number] Oral 480 540 Output: Urine 1300 450 Other: Voiding Method Urinal Urinal # Voids 1 - Exam General: [Patient awake, alert and oriented times 3. Patient in no acute distress.] HEENT: [PERRL. EOMI. No pharyngeal erythema or exudate.] Neck: [No adenopathy.] Cardiac: [Heart regular in rate and rhythm. No S3. No S4. No clicks, rubs. No murmur.] Lungs:diminished breath sounds bilaterally, scattered rhonchi Abdomen: [No mass. No organomegaly. Bowel sounds presnt and normoactive in all 4 quadrants.] Extremes: [No edema no cyanosis no claudication normal pulses] : [] Musculoskeletal: [No joint erythema, edema or tenderness.] Skin: [No rash.] Neurologic: [No lateralizing deficits. CN II - XII grossly intact.] Lymphatic: [No adenopathy.] - Labs CBC & Chem 7: 04/05/23 07:36 04/05/23 07:36 Labs: Abnormal Lab Results - Last 24 Hours (Table) 04/04/23 04/04/23 04/05/23 Range/Units 16:22 20:11 07:36 WBC 13.4 H (3.8-10.6) k/uL Neutrophils # 11.7 H (1.3-7.7) k/uL Lymphocytes # 0.7 L (1.0-4.8) k/uL Sodium (137-145) mmol/L Chloride (98-107) mmol/L Carbon Dioxide (22-30) mmol/L Creatinine (0.66-1.25) mg/dL POC Glucose (mg/dL) 165 H 126 H (70-110) mg/dL ALT (4-49) U/L Total Protein (6.3-8.2) g/dL Albumin (3.5-5.0) g/dL 04/05/23 Range/Units 07:36 WBC (3.8-10.6) k/uL Neutrophils # (1.3-7.7) k/uL Lymphocytes # (1.0-4.8) k/uL Sodium 132 L (137-145) mmol/L Chloride 87 L (98-107) mmol/L Carbon Dioxide 45 H* (22-30) mmol/L Creatinine 0.43 L (0.66-1.25) mg/dL POC Glucose (mg/dL) (70-110) mg/dL ALT 72 H (4-49) U/L Total Protein 6.2 L (6.3-8.2) g/dL Albumin 2.8 L (3.5-5.0) g/dL Assessment and Plan (1) Acute respiratory failure with hypoxia Current Visit: Yes Status: Acute Code(s): J96.01 - ACUTE RESPIRATORY FAILURE WITH HYPOXIA SNOMED Code(s): 41718592 (2) COPD (chronic obstructive pulmonary disease) Current Visit: Yes Status: Acute Code(s): J44.9 - CHRONIC OBSTRUCTIVE PULMONARY DISEASE, UNSPECIFIED SNOMED Code(s): 99927992 (3) COVID-19 Current Visit: Yes Status: Acute Priority: High Code(s): U07.1 - COVID-19 SNOMED Code(s): 136595091 (4) Pneumonia Current Visit: Yes Status: Acute Priority: High Code(s): J18.9 - PNEUMONIA, UNSPECIFIED ORGANISM SNOMED Code(s): 518958901 (5) Acute and chronic respiratory failure ([id number]) Current Visit: No Status: Acute Code(s): J96.20 - ACUTE AND CHR RESP FAILURE, UNSP W HYPOXIA OR HYPERCAPNIA SNOMED Code(s): 66739152 (6) Adenocarcinoma of lung Current Visit: Yes Status: Acute Priority: High Code(s): C34.90 - MALIGNANT NEOPLASM OF UNSP PART OF UNSP BRONCHUS OR LUNG SNOMED Code(s): 170127820 (7) Atherosclerosis of abdominal aorta Current Visit: No Status: Acute Code(s): I70.0 - ATHEROSCLEROSIS OF AORTA SNOMED Code(s): 021043054 Plan: IV antibiotic therapy per pulmonary pneumonia Covid 19 positive viremia IV Decadron BiPAP/high flow oxygen started patient on Marinol 2.5 mg to enhance appetite and hopefully reduce nausea Further imaging as outpatient for bronchogenic carcinoma IE PET scan this patient has poor prognosis given his diagnosis and comorbidities Time with Patient: Greater than 30
[2023-04-05] MEDS: FUROSEMIDE 40 MG TAB PO SCH (11:01)
[2023-04-05 11:55] LABS: Glucose,Whole Blood 108 mg/dL (70-110)
--- NOTE | 2023-04-05 12:18 | P.PN ---
Subjective Progress Note Date: 04/05/23 Hypoxemic respiratory failure. I am seeing this patient in new consultation today 03/24/2023 for suspected left lower lobe pneumonia. Patient is a 73-year-old white male with past medical history significant for recent admission with left lower lobe pneumonia, discharged on March 17. During this admission, the patient was also found to have metastatic adenocarcinoma of the lung based on pleural fluid cytology from a left sided thoracentesis. He also has history of COPD, hypertension, hyperlipidemia, GERD, and ongoing chronic tobacco dependence. Patient is known to have a 10 mm x 7mm right upper lung nodule, originally seen back in June,. His PCP is Dr. Nichols. Chest CT from his most recent admission, March 07, demonstrated a right upper lung bronchus large airway occlusion concerning for obstructive mass. There was also a loculated left pleural effusion with left lung consolidation. The patient was treated with IV antibiotics and discharged home on Augmentin. He was established with an oncologist, and is reportedly going to undergo a PET scan outpatient. Patient returned to the emergency room last night, reporting that he's had ongoing progressively worsening shortness of breath since discharge. He admits an associated nonproductive cough. Denies any fever, chills, myalgias, hemoptysis. Denies any chest pain, palpitations, lower extremity edema, syncope. A chest x-ray done on arrival, showed worsening airspace opacities within the left mid and lower lung zones compared to prior imaging. There was also suspected right lower lung atelectasis, and trace to small bilateral pleural effusions. Patient did test positive for COVID-19, possibly an incidental finding. Patient is currently sitting up in bed, on BiPAP with settings 12/6 and FiO2 of 60%. Appears fairly comfortable. Respiratory rate is high 20s to low 30s and is achieving tidal volumes around 400. CBC on arrival shows leukocytosis with WBC count of 16.9, hemoglobin 14.7, hematocrit 45.4, platelets 150. BMP shows sodium 133, potassium 4.1, chloride 92, serum bicarbonate 39, BUN 17, creatinine 0.43, glucose 99. Currently receiving normal saline at 100 ML's per hour. He was started on empiric Zosyn and azithromycin. Currently afebrile. Also receiving Ventolin HFA, Symbicort inhaler, and IV Decadron. Patient is being monitored closely on the cardiac stepdown unit. Progress note dated 03/25/2023. 73-year-old male admitted on March 24, with a diagnosis of possible left lower lobe pneumonia, and hypoxemic respiratory failure. Currently, the patient is on BiPAP, with settings of 12/6, and 70%. He has no IV fluids running at this time. He did test positive for coronavirus. He does have a history of lung cancer, adenocarcinoma. The only labs today include glucose of 110. Chest x-ray from March 24, shows a small to moderate-sized left pleural effusion, with increased small right pleural effusion. There is also some right lower lung consolidation. Progress note dated 03/26/2023. 73-year-old male admitted on March 24, with a diagnosis of possible left lower lobe pneumonia and hypoxemic respiratory failure. The patient is currently on AIRVO, with settings of 60 L/m and an FiO2 of 90%. He's not receiving any IV fluids. A chest x-ray is ordered for March 27. The only lab today with a glucose of 111. Clinically, the patient's doing about the same. Blood cultures are currently negative. Progress note dated 03/27/2023. The patient is seen today in room 368. He continues on AIRVO, with settings of 60 L/m, with an FiO2 of 90%. The chest x-ray done today, shows worsening infiltrates. Clinically, the patient appears reasonably stable. White count 18.6, hemoglobin 10.8, hematocrit 46.2, and platelet count was normal. Sodium 139, potassium 4.6, chlorides 96, CO2 39, BUN 18, and creatinine 0.48. Blood cultures are negative. Chest x-ray shows bilateral pleural/parenchymal opacities, left greater than right. Radiologist feels there may be some improvement. Progress note dated 03/28/2023. This is a 74-year-old male seen in room 368. The patient continues on AIRVO, at 60 L/m, and an FiO2 of 90%. The patient does feel better. He's not receiving any IV fluids. Labs today include only a glucose of 89. As mentioned yesterday, the chest x-ray, as interpreted by the radiologist, suggests some improvement. Progress note dated 03/29/2023. The patient is seen today in room 368. He continues on AIRVO, at 60 L/m, with an FiO2 of 90%. He is getting D5 with normal saline, at 50 mL an hour. She does feel like he is getting better. He looks relatively stable, and his respiratory status, despite being on AIRVO, appears stable. White count is 15.2, with a normal hemoglobin, hematocrit, and platelet count. Sodium 140, potassium 4.4, chlorides 99, CO2 39, BUN 25, and creatinine 0.43. Progress note dated 03/30/2023. The patient is seen today in room 368. He is on AIRVO, with settings of 60 L/m, for flow rate, and an FiO2, that has been dropped down to 80%. The patient continues on saline at 75 mL an hour. Chest x-ray ordered for tomorrow, March 31. No new labs today, other than a glucose of 99. 03/31 2023, the patient remains on high flow oxygen. He remains on 60 L an FiO2 has been done to 70%.the patient remains weak, short of breath, oxygenation. 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 At the same time, the patient was diagnosed having an acute Covid 19 infection.repeat chest x-ray from today shows a stable patchy infiltrates in the left along with small bilateral pleural effusion more so on the left. Meanwhile, the patient was diagnosed having Covid 19 infection on 04/19/2023 and the patient is currently on Decadron. The patient is also was found to have Enterobacter in his sputum and a bacterial pneumonia is suspected. His currently not receiving any antibiotic coverage. He is on Decadron 6 mg IV every 24 hours. He is on Ventolin HFA 4 times a day and Symbicort as maintenance. Rest of the home medications have been all resume. Labs showed a basic on of 12.5, hemoglobin 16.9, BUN is 23 with a creatinine of 0.4. His current pulse ox is 94%. Is getting progressively weak and more debilitated. 04/01 2023, the patient remains on high flow oxygen. This morning, the patient remains on 60 L of 70%. He was provided incentive spirometer. He denies having any worsening shortness of breath. He remains on Decadron 6 mg IV every 24 hours. He did have also patchy infiltrates on the left as discussed earlier and the patient was found to have Enterobacter in his sputum. Currently is afebrile. Hemodynamically stable. Oral intake is quite limited increase feeling weak and debilitated. Blood work was from yesterday and no recent blood work from today. His renal function is stable. Hemoglobin stable at 13.9. He is afebrile. Pulse ox is in order of 92%. No other significant events over the past 24 hours. Improvement is slow and limited at this point in time. 13 2022, the patient remains on 60 L an FiO2 of 70% on high flow oxygen. The patient is essentially the same. The patient has a congested cough. Is unable to produce significant sputum. I'm very much interested in obtaining another sputum samples for cultures. Meanwhile, based on his earlier Enterobacter growth in his sputum, the patient is currently on IV cefepime. The patient remains on Decadron 6 mg IV every 24 hours. Repeat chest x-ray from today shows no interval change. There is persistent stable. There is persistent left mid and upper lobe pulmonary infiltrate. There is also small bilateral pleural effusion. The patient is weak. The patient is lethargic. He is arousable and is communicating. Oral intake is quite diminished at this point. He is afebrile. He is hemodynamically stable. On today's evaluation of 04/03/2023, the patient states that he's feeling better. Oxygenation is still impaired and the patient is still requiring high flow oxygen. Currently is on 60 L an FiO2 of 70%. His pulse ox is ranging be tween 93-95%. He continues to have a congestive cough. IV cefepime was added. The patient remains on steroids. The chest x-ray from yesterday showed a stable consolidation left lung along with a small left-sided pleural effusion. No new labs are available from today. His tolerating diet. He remains on Decadron 6 mg IV every 24 hours. No other significant events overnight. He was encouraged to use incentive spirometer. On today's evaluation of 04/04/2023, the patient remains on Airvo at 60 L an FiO2 of 70%. Is essentially the same setting over the past several days. No major changes in his oxygenation. Continues to produce copious amount of secretions and his cough is wet and congested and the patient is producing mucus. He does not have another complaints at this point. He is weak. Oral intake is quite diminished. Is on IV cefepime. He remains on Decadron. Unfortunately, he is not making much of progress. I discussed the case with his over the phone and explained to do situation. Current pulse ox is in order of 94-95% on the current high flow oxygen setting. 04/05/2023, the patient is on 60 L an FiO2 of 70%. Pulse ox is in order of 95%. Chest x-ray findings remain stable and I reviewed the chest x-ray from today and there is no significant interval change. There is a patchy pulmonary infiltrate persistent in the left lung. No significant interval change. The patient remains on IV cefepime. The patient is afebrile. On blood work, the patient's serum bicarbs of 45 and the patient will be given 2 doses of Diamox today. Sodiums of 132. The white suppositive 13.4, hemoglobin is at 14.1 Objective - Vital Signs Vital signs: Vital Signs Temp 98.0 F 04/05/23 08:00 Pulse 103 H 04/05/23 08:00 Resp 22 04/05/23 08:00 BP 113/71 04/05/23 08:00 Pulse Ox 95 04/05/23 08:00 FiO2 70 04/05/23 07:33 Intake & Output 04/04/23 04/05/23 04/05/23 18:59 06:59 18:59 Intake Total 480 640 Output Total 1300 450 Balance -820 190 Weight 74.389 kg Intake: Intake, IV Titration 100 Amount Cefepime 2 gm In Sodium 100 Chloride 0.9% 100 ml @ 25 mls/hr IVPB Q12HR [facility] Rx #:[id number] Oral 480 540 Output: Urine 1300 450 Other: Voiding Method Urinal Urinal # Voids 1 - Exam No acute distress, oriented 3. The patient is currently on AIRVO, at 60 L/m with an FiO2 of 70 %. Saturations are 92% HEENT examination is grossly unremarkable. Neck supple. Full range of motion. No adenopathy thyromegaly or neck vein distention. Cardiovascular examination reveals regular rhythm rate. S1-S2 normal. No S3 or S4. No discernible murmur noted. Lungs reveal scattered rhonchi, with a few scattered bibasilar crackles. No wheezes. Breath sounds are equal bilaterally. The breath sounds are quite diminished and the left lung base. Abdomen soft bowel sounds are heard. No masses or tenderness. Extremities are intact. No cyanosis clubbing or edema. Skin is without rash or lesion. Neurologic examination is brief but nonfocal. The patient is overall weak and he has generalized motor weakness in all 4 extremities. - Labs CBC & Chem 7: 04/05/23 07:36 04/05/23 07:36 Labs: Abnormal Lab Results - Last 24 Hours (Table) 04/04/23 04/04/23 04/05/23 Range/Units 16:22 20:11 07:36 WBC 13.4 H (3.8-10.6) k/uL Neutrophils # 11.7 H (1.3-7.7) k/uL Lymphocytes # 0.7 L (1.0-4.8) k/uL Sodium (137-145) mmol/L Chloride (98-107) mmol/L Carbon Dioxide (22-30) mmol/L Creatinine (0.66-1.25) mg/dL POC Glucose (mg/dL) 165 H 126 H (70-110) mg/dL ALT (4-49) U/L Total Protein (6.3-8.2) g/dL Albumin (3.5-5.0) g/dL 04/05/23 Range/Units 07:36 WBC (3.8-10.6) k/uL Neutrophils # (1.3-7.7) k/uL Lymphocytes # (1.0-4.8) k/uL Sodium 132 L (137-145) mmol/L Chloride 87 L (98-107) mmol/L Carbon Dioxide 45 H* (22-30) mmol/L Creatinine 0.43 L (0.66-1.25) mg/dL POC Glucose (mg/dL) (70-110) mg/dL ALT 72 H (4-49) U/L Total Protein 6.2 L (6.3-8.2) g/dL Albumin 2.8 L (3.5-5.0) g/dL Assessment and Plan Plan: Acute hypoxemic respiratory failure secondary to recurrent/persistent left lower lobe pneumonia. Chest x-ray on arrival demonstrates worsening opacities within the left mid and lower lung zones compared to his recent imaging. There was also suspected right lower lung atelectasis, and trace to small bilateral pleural effusions. Also, did test positive for COVID-19, possibly an incidental finding. The patient has also Enterobacter in his sputum and patchy infiltrates are seen in the left upper lobe and the left lower lobe. Rule out malignancy/primary bronchogenic carcinoma. Rule out bacterial infection/pneumonia as the patient was found to have Enterobacter in his sputum. In addition, he has advanced COPD, and a malignant left-sided pleural effusion. No major interval change in his overall condition and oxygenation over the past 24-48 hours. The patient remains on Decadron. Repeat chest x-ray from today done on 04/02/2023 shows a stable peripheral left lung pulmonary infiltrate and small bilateral pleural effusions. The patient continues to require high flow oxygen to maintain a oxygenation saturation above 90%. Is currently on 60 L with an FiO2 of 70% Leukocytosis, secondary to above. Acute COPD exacerbation, secondary to above. Recent diagnosis of metastatic pulmonary adenocarcinoma based on pleural fluid cytology from a left-sided thoracentesis 03/11/23. History of right apical lung nodule measuring 10 x 7 mm June,. Benign essential hypertension. Hyperlipidemia. GERD. Chronic ongoing tobacco dependence. Plan: Monitor oxygenation and wean down FiO2 slowly Continue aggressive pulmonary toileting Give Diamox to 50 mg IV 2 doses Repeat chest x-ray in the morning, was reviewed and shows stable findings the left Oxygenation is still unchanged and the patient continues to be on 60 L an FiO2 of 70% Continue IV cefepime Awaiting another sputum sample for Gram stain and culture Continue Decadron 6 mg IV every 24 hours Most recent chest x-ray from yesterday shows a stable pulmonary infiltrates/consolidation involving the left lung Provide the patient incentive spirometer Repeat labs in the morning Wean down FiO2 if possible to maintain a saturation above 90% Prognosis remains poor based above-mentioned comorbidities. Prognosis poor Case was discussed with the over the phone. The patient has stage IV adenocarcinoma of the lung which by itself is a very poor prognosis.
[2023-04-05 16:48] LABS: Glucose,Whole Blood 166 mg/dL (70-110)
[2023-04-05] MEDS: DEXTROSE 5%-0.9% NACL 1,000 ML IV SCH (18:45)
[2023-04-05 20:30] LABS: Glucose,Whole Blood 128 mg/dL (70-110)
[2023-04-05] MEDS: ATORVASTATIN 20 MG TAB PO SCH (21:54)
[2023-04-05] MEDS ORDERED: FUROSEMIDE 10 MG/ML 10 ML VIAL IV STA (22:11)
[2023-04-06] MEDS: HEPARIN SODIUM,PORCINE 5,000 UNIT/ML 1 ML VIAL SQ SCH ×4 (00:17→23:44)
[2023-04-06] MEDS: CEFEPIME 2 GM in SODIUM CHLORIDE 0.9% 100 ML IVPB SCH ×4 (00:17→23:44)
[2023-04-06 06:14] LABS: Glucose,Whole Blood 95 mg/dL (70-110)
[2023-04-06] MEDS: PANTOPRAZOLE 40 MG TABLET PO SCH (06:30)
[2023-04-06] MEDS: droNABinol 2.5 MG CAP PO SCH ×2 (06:30→16:16)
[2023-04-06] MEDS: ESCITALOPRAM 10 MG TAB PO SCH (07:47)
[2023-04-06] MEDS: amLODIPine 10 MG TAB PO SCH (07:48)
[2023-04-06] MEDS: ZINC SULFATE 220 MG CAP PO SCH (07:48)
[2023-04-06] MEDS: POTASSIUM CHLORIDE ER 10 MEQ TAB.ER.PRT PO SCH (07:48)
[2023-04-06] MEDS: FAMOTIDINE 20 MG TAB PO SCH (07:48)
[2023-04-06] MEDS: CHOLECALCIFEROL 25 MCG (1000 IU) TABLET PO SCH (07:48)
[2023-04-06] MEDS: ASCORBIC ACID 500 MG TAB PO SCH (07:48)
[2023-04-06] MEDS: guaiFENesin 600 MG TABLET.ER PO SCH ×2 (07:48→20:26)
[2023-04-06] MEDS: lisinopriL 20 MG TAB PO SCH (07:48)
[2023-04-06] MEDS: FUROSEMIDE 40 MG TAB PO SCH (07:49)
[2023-04-06] MEDS: BISOPROLOL-HCTZ 5-6.25 MG 1 EACH TAB PO SCH (07:49)
[2023-04-06] MEDS: DEXAMETHASONE SOD PHOSPHATE 10 MG/ML 1 ML VIAL IVP SCH (07:49)
[2023-04-06] MEDS: ALBUTEROL HFA INHALER INHALATION SCH ×4 (08:08→21:20)
[2023-04-06] MEDS: SYMBICORT 160-4.5 MCG INHALER INHALATION SCH ×2 (08:09→21:21)
[2023-04-06 11:44] LABS: Glucose,Whole Blood 138 mg/dL (70-110)
--- NOTE | 2023-04-06 11:58 | P.PN ---
Subjective Progress Note Date: 04/06/23 Hypoxemic respiratory failure. I am seeing this patient in new consultation today 03/24/2023 for suspected left lower lobe pneumonia. Patient is a 73-year-old white male with past medical history significant for recent admission with left lower lobe pneumonia, discharged on March 17. During this admission, the patient was also found to have metastatic adenocarcinoma of the lung based on pleural fluid cytology from a left sided thoracentesis. He also has history of COPD, hypertension, hyperlipidemia, GERD, and ongoing chronic tobacco dependence. Patient is known to have a 10 mm x 7mm right upper lung nodule, originally seen back in June,. His PCP is Dr. Nichols. Chest CT from his most recent admission, March 07, demonstrated a right upper lung bronchus large airway occlusion concerning for obstructive mass. There was also a loculated left pleural effusion with left lung consolidation. The patient was treated with IV antibiotics and discharged home on Augmentin. He was established with an oncologist, and is reportedly going to undergo a PET scan outpatient. Patient returned to the emergency room last night, reporting that he's had ongoing progressively worsening shortness of breath since discharge. He admits an associated nonproductive cough. Denies any fever, chills, myalgias, hemoptysis. Denies any chest pain, palpitations, lower extremity edema, syncope. A chest x-ray done on arrival, showed worsening airspace opacities within the left mid and lower lung zones compared to prior imaging. There was also suspected right lower lung atelectasis, and trace to small bilateral pleural effusions. Patient did test positive for COVID-19, possibly an incidental finding. Patient is currently sitting up in bed, on BiPAP with settings 12/6 and FiO2 of 60%. Appears fairly comfortable. Respiratory rate is high 20s to low 30s and is achieving tidal volumes around 400. CBC on arrival shows leukocytosis with WBC count of 16.9, hemoglobin 14.7, hematocrit 45.4, platelets 150. BMP shows sodium 133, potassium 4.1, chloride 92, serum bicarbonate 39, BUN 17, creatinine 0.43, glucose 99. Currently receiving normal saline at 100 ML's per hour. He was started on empiric Zosyn and azithromycin. Currently afebrile. Also receiving Ventolin HFA, Symbicort inhaler, and IV Decadron. Patient is being monitored closely on the cardiac stepdown unit. Progress note dated 03/25/2023. 73-year-old male admitted on March 24, with a diagnosis of possible left lower lobe pneumonia, and hypoxemic respiratory failure. Currently, the patient is on BiPAP, with settings of 12/6, and 70%. He has no IV fluids running at this time. He did test positive for coronavirus. He does have a history of lung cancer, adenocarcinoma. The only labs today include glucose of 110. Chest x-ray from March 24, shows a small to moderate-sized left pleural effusion, with increased small right pleural effusion. There is also some right lower lung consolidation. Progress note dated 03/26/2023. 73-year-old male admitted on March 24, with a diagnosis of possible left lower lobe pneumonia and hypoxemic respiratory failure. The patient is currently on AIRVO, with settings of 60 L/m and an FiO2 of 90%. He's not receiving any IV fluids. A chest x-ray is ordered for March 27. The only lab today with a glucose of 111. Clinically, the patient's doing about the same. Blood cultures are currently negative. Progress note dated 03/27/2023. The patient is seen today in room 368. He continues on AIRVO, with settings of 60 L/m, with an FiO2 of 90%. The chest x-ray done today, shows worsening infiltrates. Clinically, the patient appears reasonably stable. White count 18.6, hemoglobin 10.8, hematocrit 46.2, and platelet count was normal. Sodium 139, potassium 4.6, chlorides 96, CO2 39, BUN 18, and creatinine 0.48. Blood cultures are negative. Chest x-ray shows bilateral pleural/parenchymal opacities, left greater than right. Radiologist feels there may be some improvement. Progress note dated 03/28/2023. This is a 74-year-old male seen in room 368. The patient continues on AIRVO, at 60 L/m, and an FiO2 of 90%. The patient does feel better. He's not receiving any IV fluids. Labs today include only a glucose of 89. As mentioned yesterday, the chest x-ray, as interpreted by the radiologist, suggests some improvement. Progress note dated 03/29/2023. The patient is seen today in room 368. He continues on AIRVO, at 60 L/m, with an FiO2 of 90%. He is getting D5 with normal saline, at 50 mL an hour. She does feel like he is getting better. He looks relatively stable, and his respiratory status, despite being on AIRVO, appears stable. White count is 15.2, with a normal hemoglobin, hematocrit, and platelet count. Sodium 140, potassium 4.4, chlorides 99, CO2 39, BUN 25, and creatinine 0.43. Progress note dated 03/30/2023. The patient is seen today in room 368. He is on AIRVO, with settings of 60 L/m, for flow rate, and an FiO2, that has been dropped down to 80%. The patient continues on saline at 75 mL an hour. Chest x-ray ordered for tomorrow, March 31. No new labs today, other than a glucose of 99. 03/31 2023, the patient remains on high flow oxygen. He remains on 60 L an FiO2 has been done to 70%.the patient remains weak, short of breath, oxygenation. 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 At the same time, the patient was diagnosed having an acute Covid 19 infection.repeat chest x-ray from today shows a stable patchy infiltrates in the left along with small bilateral pleural effusion more so on the left. Meanwhile, the patient was diagnosed having Covid 19 infection on 04/19/2023 and the patient is currently on Decadron. The patient is also was found to have Enterobacter in his sputum and a bacterial pneumonia is suspected. His currently not receiving any antibiotic coverage. He is on Decadron 6 mg IV every 24 hours. He is on Ventolin HFA 4 times a day and Symbicort as maintenance. Rest of the home medications have been all resume. Labs showed a basic on of 12.5, hemoglobin 16.9, BUN is 23 with a creatinine of 0.4. His current pulse ox is 94%. Is getting progressively weak and more debilitated. 04/01 2023, the patient remains on high flow oxygen. This morning, the patient remains on 60 L of 70%. He was provided incentive spirometer. He denies having any worsening shortness of breath. He remains on Decadron 6 mg IV every 24 hours. He did have also patchy infiltrates on the left as discussed earlier and the patient was found to have Enterobacter in his sputum. Currently is afebrile. Hemodynamically stable. Oral intake is quite limited increase feeling weak and debilitated. Blood work was from yesterday and no recent blood work from today. His renal function is stable. Hemoglobin stable at 13.9. He is afebrile. Pulse ox is in order of 92%. No other significant events over the past 24 hours. Improvement is slow and limited at this point in time. 13 2022, the patient remains on 60 L an FiO2 of 70% on high flow oxygen. The patient is essentially the same. The patient has a congested cough. Is unable to produce significant sputum. I'm very much interested in obtaining another sputum samples for cultures. Meanwhile, based on his earlier Enterobacter growth in his sputum, the patient is currently on IV cefepime. The patient remains on Decadron 6 mg IV every 24 hours. Repeat chest x-ray from today shows no interval change. There is persistent stable. There is persistent left mid and upper lobe pulmonary infiltrate. There is also small bilateral pleural effusion. The patient is weak. The patient is lethargic. He is arousable and is communicating. Oral intake is quite diminished at this point. He is afebrile. He is hemodynamically stable. On today's evaluation of 04/03/2023, the patient states that he's feeling better. Oxygenation is still impaired and the patient is still requiring high flow oxygen. Currently is on 60 L an FiO2 of 70%. His pulse ox is ranging be tween 93-95%. He continues to have a congestive cough. IV cefepime was added. The patient remains on steroids. The chest x-ray from yesterday showed a stable consolidation left lung along with a small left-sided pleural effusion. No new labs are available from today. His tolerating diet. He remains on Decadron 6 mg IV every 24 hours. No other significant events overnight. He was encouraged to use incentive spirometer. On today's evaluation of 04/04/2023, the patient remains on Airvo at 60 L an FiO2 of 70%. Is essentially the same setting over the past several days. No major changes in his oxygenation. Continues to produce copious amount of secretions and his cough is wet and congested and the patient is producing mucus. He does not have another complaints at this point. He is weak. Oral intake is quite diminished. Is on IV cefepime. He remains on Decadron. Unfortunately, he is not making much of progress. I discussed the case with his over the phone and explained to do situation. Current pulse ox is in order of 94-95% on the current high flow oxygen setting. 04/05/2023, the patient is on 60 L an FiO2 of 70%. Pulse ox is in order of 95%. Chest x-ray findings remain stable and I reviewed the chest x-ray from today and there is no significant interval change. There is a patchy pulmonary infiltrate persistent in the left lung. No significant interval change. The patient remains on IV cefepime. The patient is afebrile. On blood work, the patient's serum bicarbs of 45 and the patient will be given 2 doses of Diamox today. Sodiums of 132. The white cell count 13.4, hemoglobin is at 14.1 04/06 2023, no major improvement and the patient remains on high flow oxygen at 60 L an FiO2 of 70%. Continues to be on Decadron. Continues to be on cefepime. Most recent chest x-ray from 04/05/2023 showed stable findings. He is a DNR/DNI CODE STATUS. Objective - Vital Signs Vital signs: Vital Signs Temp 97.9 F 04/06/23 08:03 Pulse 94 04/06/23 08:03 Resp 18 04/06/23 08:03 BP 94/58 04/06/23 08:03 Pulse Ox 95 04/06/23 08:09 FiO2 70 04/06/23 08:09 Intake & Output 04/05/23 04/06/23 04/06/23 18:59 06:59 18:59 Intake Total 360 660 120 Output Total 1400 Balance 360 -740 120 Intake: IV 20 Invasive Line 3 20 Intake, IV Titration 100 Amount Cefepime 2 gm In Sodium 100 Chloride 0.9% 100 ml @ 25 mls/hr IVPB Q8HR [facility] Rx# :[id number] Oral 360 540 120 Output: Urine 1400 Other: Voiding Method Urinal Urinal # Voids 1 1 # Bowel Movements 1 - Exam No acute distress, oriented 3. The patient is currently on AIRVO, at 60 L/m with an FiO2 of 70 %. Saturations are 92% HEENT examination is grossly unremarkable. Neck supple. Full range of motion. No adenopathy thyromegaly or neck vein distention. Cardiovascular examination reveals regular rhythm rate. S1-S2 normal. No S3 or S4. No discernible murmur noted. Lungs reveal scattered rhonchi, with a few scattered bibasilar crackles. No wheezes. Breath sounds are equal bilaterally. The breath sounds are quite diminished and the left lung base. Abdomen soft bowel sounds are heard. No masses or tenderness. Extremities are intact. No cyanosis clubbing or edema. Skin is without rash or lesion. Neurologic examination is brief but nonfocal. The patient is overall weak and he has generalized motor weakness in all 4 extremities. - Labs CBC & Chem 7: 04/05/23 07:36 04/05/23 07:36 Labs: Abnormal Lab Results - Last 24 Hours (Table) 04/05/23 04/05/23 04/06/23 Range/Units 16:46 20:28 11:42 POC Glucose (mg/dL) 166 H 128 H 138 H (70-110) mg/dL Assessment and Plan Plan: Acute hypoxemic respiratory failure secondary to recurrent/persistent left lower lobe pneumonia. Chest x-ray on arrival demonstrates worsening opacities within the left mid and lower lung zones compared to his recent imaging. There was also suspected right lower lung atelectasis, and trace to small bilateral pleural effusions. Also, did test positive for COVID-19, possibly an incidental finding. The patient has also Enterobacter in his sputum and patchy infiltrates are seen in the left upper lobe and the left lower lobe. Rule out m alignancy/primary bronchogenic carcinoma. Rule out bacterial infection/pneumonia as the patient was found to have Enterobacter in his sputum. In addition, he has advanced COPD, and a malignant left-sided pleural effusion. No major interval change in his overall condition and oxygenation over the past 24-48 hours. The patient remains on Decadron. Repeat chest x-ray from today done on 04/02/2023 shows a stable peripheral left lung pulmonary infiltrate and small bilateral pleural effusions. The patient continues to require high flow oxygen to maintain a oxygenation saturation above 90%. Is currently on 60 L with an FiO2 of 70% Leukocytosis, secondary to above. Acute COPD exacerbation, secondary to above. Recent diagnosis of metastatic pulmonary adenocarcinoma based on pleural fluid cytology from a left-sided thoracentesis 03/11/23. History of right apical lung nodule measuring 10 x 7 mm June,. Benign essential hypertension. Hyperlipidemia. GERD. Chronic ongoing tobacco dependence. Plan: No major progress and the patient's overall condition remains unchanged Repeat chest x-ray in the morning, was reviewed and shows stable findings the left Oxygenation is still unchanged and the patient continues to be on 60 L an FiO2 of 70% Continue IV cefepime Awaiting another sputum sample for Gram stain and culture Continue Decadron 6 mg IV every 24 hours Most recent chest x-ray from yesterday shows a stable pulmonary infiltrates/consolidation involving the left lung Provide the patient incentive spirometer Repeat labs in the morning, monitor the patient's metabolic alkalosis the patient was given Diamox yesterday. Wean down FiO2 if possible to maintain a saturation above 90% Prognosis remains poor based above-mentioned comorbidities. Prognosis poor Case was discussed with the over the phone. The patient has stage IV adenocarcinoma of the lung which by itself is a very poor prognosis.
--- NOTE | 2023-04-06 12:18 | P.PN ---
Subjective Progress Note Date: 04/06/23 Principal diagnosis: recently diagnosed with metastatic adenocarcinoma of the lung, admitted with Covid 19 infection Patient recently admitted with:Covid 19 infection, recently diagnosed with bronchogenic carcinoma recent culture demonstrates Enterobacter lungs IV antibiotic therapy was initiated I Dr. Nguyen 04/01/2023 Patient is awake alert oriented 3 vital signs are stable patient is still on BiPAP\HI-Flow oxygen patient's but has Enterobacter in the lungs was started on IV antibiotics slow to improve 04/02/2023 [place] alert oriented 3 vital signs are stable, known history of COPD, known history of hypertension, known history of hyperlipidemia recently diagnosed with adenocarcinoma of the lung, patient's is currently on BiPAP FiO2 of 60%. Currently on Zosyn and azithromycin 04/03/2023 Patient is awake alert oriented 3, this patient is very hard of hearing, he is also on continuous BiPAP, and he can't hear conversations above the noise of the machine. Known history of COPD known history of hypertension on history of hyperlipidemia recently diagnosed with adenocarcinoma of the lung patient is currently on BiPAP with an FiO2 of 60% still currently on Zosyn and erythromycin still. Had conversation with the dietitian, and the nurse patient's dietary in take was minimal we started him on narrow no 2.5 mg to reduce nausea and enhance appetite will continue to follow 04/04/2023 patient is awake alert oriented 3 currently on continuous BiPAP , started patient on Marinol yesterday oral intake is improving. Patient's lungs started sounding wet stopped fluids his IV is kvo, 80mg of Lasix given, outputs almost immediately improved we'll continue to follow progress, patient is currently on BiPAP FiO2 still 60% currently on Zosyn and erythromycin. 04/05/2023 Patient is awake alert oriented 3 currently on high flow oxygen FiO2 90%, family meeting with pulmonary noted, patient's new CODE STATUS DNR/DNI noted and appreciated, plan at this time is to progress towards discharge Known malignant left effusion, known COPD secondary to cigarette smoking, patient experiencing acute on chronic respiratory failure secondary to COVID- 19/pneumonia superimposed on COPD 04/06/2023 Pt is awake alert oriented x 3, vss pt is afebrile, currently on high flow 02 70%, decadron, cefepime, recent cxr stable , prognosis is poor, pt is DNR/DNI code status Objective - Vital Signs Vital signs: Vital Signs Temp 97.9 F 04/06/23 08:03 Pulse 94 04/06/23 08:03 Resp 18 04/06/23 08:03 BP 94/58 04/06/23 08:03 Pulse Ox 95 04/06/23 08:09 FiO2 70 04/06/23 08:09 Intake & Output 04/05/23 04/06/23 04/06/23 18:59 06:59 18:59 Intake Total 360 660 120 Output Total 1400 Balance 360 -740 120 Intake: IV 20 Invasive Line 3 20 Intake, IV Titration 100 Amount Cefepime 2 gm In Sodium 100 Chloride 0.9% 100 ml @ 25 mls/hr IVPB Q8HR [facility] Rx# :[id number] Oral 360 540 120 Output: Urine 1400 Other: Voiding Method Urinal Urinal # Voids 1 1 # Bowel Movements 1 - Exam General: [Patient awake, alert and oriented times 3. Patient in no acute distress.] HEENT: [PERRL. EOMI. No pharyngeal erythema or exudate.] Neck: [No adenopathy.] Cardiac: [Heart regular in rate and rhythm. No S3. No S4. No clicks, rubs. No murmur.] Lungs:diminished breath sounds bilaterally, scattered rhonchi Abdomen: [No mass. No organomegaly. Bowel sounds presnt and normoactive in all 4 quadrants.] Extremes: [No edema no cyanosis no claudication normal pulses] : [] Musculoskeletal: [No joint erythema, edema or tenderness.] Skin: [No rash.] Neurologic: [No lateralizing deficits. CN II - XII grossly intact.] Lymphatic: [No adenopathy.] - Labs CBC & Chem 7: 04/05/23 07:36 04/05/23 07:36 Labs: Abnormal Lab Results - Last 24 Hours (Table) 04/05/23 04/05/23 04/06/23 Range/Units 16:46 20:28 11:42 POC Glucose (mg/dL) 166 H 128 H 138 H (70-110) mg/dL Assessment and Plan (1) Acute respiratory failure with hypoxia Current Visit: Yes Status: Acute Code(s): J96.01 - ACUTE RESPIRATORY FAILURE WITH HYPOXIA SNOMED Code(s): 23642549 (2) COPD (chronic obstructive pulmonary disease) Current Visit: Yes Status: Acute Code(s): J44.9 - CHRONIC OBSTRUCTIVE PULMONARY DISEASE, UNSPECIFIED SNOMED Code(s): 72648704 (3) COVID-19 Current Visit: Yes Status: Acute Priority: High Code(s): U07.1 - COVID-19 SNOMED Code(s): 898862181 (4) Pneumonia Current Visit: Yes Status: Acute Priority: High Code(s): J18.9 - PNEUMONIA, UNSPECIFIED ORGANISM SNOMED Code(s): 646091073 (5) Acute and chronic respiratory failure ([id number]) Current Visit: No Status: Acute Code(s): J96.20 - ACUTE AND CHR RESP FAILURE, UNSP W HYPOXIA OR HYPERCAPNIA SNOMED Code(s): 23021404 (6) Adenocarcinoma of lung Current Visit: Yes Status: Acute Priority: High Code(s): C34.90 - M ALIGNANT NEOPLASM OF UNSP PART OF UNSP BRONCHUS OR LUNG SNOMED Code(s): 2 08236497 (7) Atherosclerosis of abdominal aorta Current Visit: No Status: Acute Code(s): I70.0 - ATHEROSCLEROSIS OF AORTA SNOMED Code(s): 776914277 Plan: IV antibiotic therapy per pulmonary pneumonia Covid 19 positive viremia IV Decadron BiPAP/high flow oxygen started patient on Marinol 2.5 mg to enhance appetite and hopefully reduce nausea Further imaging as outpatient for bronchogenic carcinoma IE PET scan this patient has poor prognosis given his diagnosis and comorbidities Time with Patient: Less than 30
[2023-04-06 16:13] LABS: Glucose,Whole Blood 142 mg/dL (70-110)
[2023-04-06] MEDS: DEXTROSE 5%-0.9% NACL 1,000 ML IV SCH (17:10)
[2023-04-06 19:59] LABS: Glucose,Whole Blood 147 mg/dL (70-110)
[2023-04-06] MEDS: ATORVASTATIN 20 MG TAB PO SCH (20:26)
[2023-04-07 05:49] LABS: Glucose,Whole Blood 86 mg/dL (70-110)
[2023-04-07] MEDS: PANTOPRAZOLE 40 MG TABLET PO SCH (06:27)
[2023-04-07] MEDS: droNABinol 2.5 MG CAP PO SCH ×2 (06:27→17:42)
[2023-04-07] MEDS: SYMBICORT 160-4.5 MCG INHALER INHALATION SCH ×2 (08:36→21:20)
[2023-04-07] MEDS: ALBUTEROL HFA INHALER INHALATION SCH ×4 (08:36→21:20)
[2023-04-07] MEDS: HEPARIN SODIUM,PORCINE 5,000 UNIT/ML 1 ML VIAL SQ SCH ×3 (09:15→23:57)
[2023-04-07] MEDS: DEXAMETHASONE SOD PHOSPHATE 10 MG/ML 1 ML VIAL IVP SCH (09:16)
[2023-04-07] MEDS: CEFEPIME 2 GM in SODIUM CHLORIDE 0.9% 100 ML IVPB SCH ×3 (09:16→23:57)
[2023-04-07] MEDS: ASCORBIC ACID 500 MG TAB PO SCH (09:17)
[2023-04-07] MEDS: FUROSEMIDE 40 MG TAB PO SCH (09:18)
[2023-04-07] MEDS: FAMOTIDINE 20 MG TAB PO SCH (09:18)
[2023-04-07] MEDS: BISOPROLOL-HCTZ 5-6.25 MG 1 EACH TAB PO SCH (09:18)
[2023-04-07] MEDS: CHOLECALCIFEROL 25 MCG (1000 IU) TABLET PO SCH (09:18)
[2023-04-07] MEDS: amLODIPine 10 MG TAB PO SCH (09:18)
[2023-04-07] MEDS: POTASSIUM CHLORIDE ER 10 MEQ TAB.ER.PRT PO SCH (09:18)
[2023-04-07] MEDS: ESCITALOPRAM 10 MG TAB PO SCH (09:18)
[2023-04-07] MEDS: lisinopriL 20 MG TAB PO SCH (09:18)
[2023-04-07] MEDS: guaiFENesin 600 MG TABLET.ER PO SCH ×2 (09:18→19:35)
[2023-04-07] MEDS: ZINC SULFATE 220 MG CAP PO SCH (09:18)
--- NOTE | 2023-04-07 09:47 | P.PN ---
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 Maintained on covid cocktail.Currently maintaining O2 sats in the 90s on airvo flow 60 and Fio2 90. BiPAP at bedside. Reports fatigue, weakness. Afebrile. Pro-calcitonin 0.06. Preliminary blood cultures reporting no growth after 24 hours. Denies chest pain, palpitations. 03/26/2023 maintained on airvo, 60 L FIO2 90%, maintaining O2 sats in the high 80s to low 90s. Mild anxiety. Denies chest pain, palpitations. Afebrile. Preliminary blood cultures reporting no growth after 48 hours. 03/27/2023 Feels better this morning. Received Xanax last night, rested better. Continues on Airvo 60 L, FiO2 90% and maintaining O2 sats in the high 80s to low 90s. Chest x-ray reporting ongoing bilateral pleural personal opacity slough greater than right, possibly slight improvement right base. These Bicarb 39, BUN 18, creatinine 0.48. Hemoglobin 14.8, platelets 168. Preliminary blood cultures reporting no growth after 72 hours. Afebrile. [employer] increased to 18.6. Blood sugars controlled. 03/28/2023 maintained on Airvo 60 L, FiO2 90%, O2 sats fluctuates from high 80s to high 90s. Diet intake poor, consumed 25% of breakfast. Denies nausea, vomiting. Denies abdominal pain. Continues on COvid Cocktail. Afebrile. Preliminary blood cultures reporting no growth after 72 hours. Feels discouraged . 04/07/23 afebrile, continues on cefepime, Decadron. Maintained on airvo 60 L/70% FiO2 maintaining O2 sats in the mid 90s. Diet intake including HS snacks, supplement intake poor, on Marinol. Objective - Vital Signs Vital signs: Vital Signs Temp 97.9 F 04/07/23 04:00 Pulse 80 04/07/23 04:00 Resp 20 04/07/23 04:00 BP 93/57 04/07/23 04:00 Pulse Ox 95 04/07/23 04:00 FiO2 71 04/07/23 04:05 Intake & Output 04/06/23 04/07/23 04/07/23 18:59 06:59 18:59 Intake Total 240 Output Total 825 Balance 240 -825 Intake: Oral 240 Output: Urine 825 Other: Voiding Method Urinal Urinal - Exam General: Patient awake, alert and oriented times 3. wearing AIrvo, fatigued HEENT: Normocephalic, PERRL. EOMI. Neck: supple,No JVD. Cardiac: Regular S1 and S2. No S3. No S4. No clicks, rubs. No murmur. Lungs: Increased respiratory effort .Diminished bilateral breath sounds, scattered rhonchi. Abdomen: Soft, nontender, no guarding. Bowel sounds present and normoactive in all 4 quadrants. Extremes: [No edema, no cyanosis no claudication normal pulses, wearing medi boots.] Skin: [No rash, warm and dry.] Neurologic: CN II - XII grossly intact. - Labs CBC & Chem 7: 04/05/23 07:36 04/05/23 07:36 Labs: Abnormal Lab Results - Last 24 Hours (Table) 04/06/23 04/06/23 04/06/23 Range/Units 11:42 16:12 19:57 POC Glucose (mg/dL) 138 H 142 H 147 H (70-110) mg/dL Assessment and Plan Assessment: Assessment and Plan (1) Acute respiratory failure with hypoxia Current Visit: Yes Status: Acute Code(s): J96.01 - ACUTE RESPIRATORY FAILURE WITH HYPOXIA SNOMED Code(s): 05404077 (2) COPD (chronic obstructive pulmonary disease) Current Visit: Yes Status: Acute Code(s): J44.9 - CHRONIC OBSTRUCTIVE PULMONARY DISEASE, UNSPECIFIED SNOMED Code(s): 76659056 (3) COVID-19 Current Visit: Yes Status: Acute Code(s): U07.1 - COVID-19 SNOMED Code(s): 007404115 (4) Pneumonia Current Visit: Yes Status: Acute Code(s): J18.9 - PNEUMONIA, UNSPECIFIED ORGANISM SNOMED Code(s): 906994924 (5) Acute and chronic respiratory failure ([id number]) Current Visit: No Status: Acute Code(s): J96.20 - ACUTE AND CHR RESP FAILUR E, UNSP W HYPOXIA OR HYPERCAPNIA SNOMED Code(s): 27899650 (6) Adenocarcinoma of lung Current Visit: No Status: Acute Priority: High Code(s): C34.90 - MALIGNANT NEOPLASM OF UNSP PART OF UNSP BRONCHUS OR LUNG SNOMED Code(s): 532543216 (7) Atherosclerosis of abdominal aorta Current Visit: No Status: Acute Code(s): I70.0 - ATHEROSCLEROSIS OF AORTA SNOMED Code(s): 086881191 (8) No code, No CPR, No intubation Plan: Continue on current medication regime ,monitoring and symptomatic treatment.aggressive pulmonary toileting with incentive spirometer reinforced.continue on cefepime, Decadron .Airvo dependent. Diet intake remains poor,gentle IV fluid hydration with D5.9, blood sugars controlled.Maintain supportive care. Follow closely with pulmonary. Prognosis poor given multiple complex medical issues. The impression and plan of care has been dictated as directed. : I performed a history and examination of this patient, discussed the same with the dictator. I agree with the dictator's note ,documented as a scribe. Any additional findings or plans will be noted.
[2023-04-07 11:52] LABS: Glucose,Whole Blood 135 mg/dL (70-110)
--- NOTE | 2023-04-07 13:14 | P.PN ---
Subjective Progress Note Date: 04/07/23 I am seeing this patient in new consultation today 03/24/2023 for suspected left lower lobe pneumonia. Patient is a 73-year-old white male with past medical history significant for recent admission with left lower lobe pneumonia, discharged on March 17. During this admission, the patient was also found to have metastatic adenocarcinoma of the lung based on pleural fluid cytology from a left sided thoracentesis. He also has history of COPD, hypertension, hyperlipidemia, GERD, and ongoing chronic tobacco dependence. Patient is known to have a 10 mm x 7mm right upper lung nodule, originally seen back in June,. His PCP is Dr. Nichols. Chest CT from his most recent admission, March 07, demonstrated a right upper lung bronchus large airway occlusion concerning for obstructive mass. There was also a loculated left pleural effusion with left lung consolidation. The patient was treated with IV antibiotics and discharged home on Augmentin. He was established with an oncologist, and is reportedly going to undergo a PET scan outpatient. Patient returned to the emergency room last night, reporting that he's had ongoing progressively worsening shortness of breath since discharge. He admits an associated nonproductive cough. Denies any fever, chills, myalgias, hemoptysis. Denies any chest pain, palpitations, lower extremity edema, syncope. A chest x-ray done on arrival, showed worsening airspace opacities within the left mid and lower lung zones compared to prior imaging. There was also suspected right lower lung atelectasis, and trace to small bilateral pleural effusions. Patient did test positive for COVID-19, possibly an incidental finding. Patient is currently sitting up in bed, on BiPAP with settings 12/6 and FiO2 of 60%. Appears fairly comfortable. Respiratory rate is high 20s to low 30s and is achieving tidal volumes around 400. CBC on arrival shows leukocytosis with WBC count of 16.9, hemoglobin 14.7, hematocrit 45.4, platelets 150. BMP shows sodium 133, potassium 4.1, chloride 92, serum bicarbonate 39, BUN 17, creatinine 0.43, glucose 99. Currently receiving normal saline at 100 ML's per hour. He was started on empiric Zosyn and azithromycin. Currently afebrile. Also receiving Ventolin HFA, Symbicort inhaler, and IV Decadron. Patient is being monitored closely on the cardiac stepdown unit. Progress note dated 03/25/2023. 73-year-old male admitted on March 24, with a diagnosis of possible left lower lobe pneumonia, and hypoxemic respiratory failure. Currently, the patient is on BiPAP, with settings of 12/6, and 70%. He has no IV fluids running at this time. He did test positive for coronavirus. He does have a history of lung cancer, adenocarcinoma. The only labs today include glucose of 110. Chest x-ray from March 24, shows a small to moderate-sized left pleural effusion, with increased small right pleural effusion. There is also some right lower lung consolidation. Progress note dated 03/26/2023. 73-year-old male admitted on March 24, with a diagnosis of possible left lower lobe pneumonia and hypoxemic respiratory failure. The patient is currently on AIRVO, with settings of 60 L/m and an FiO2 of 90%. He's not receiving any IV fluids. A chest x-ray is ordered for March 27. The only lab today with a glucose of 111. Clinically, the patient's doing about the same. Blood cultures are currently negative. Progress note dated 03/27/2023. The patient is seen today in room 368. He continues on AIRVO, with settings of 60 L/m, with an FiO2 of 90%. The chest x-ray done today, shows worsening infiltrates. Clinically, the patient appears reasonably stable. White count 18.6, hemoglobin 10.8, hematocrit 46.2, and platelet count was normal. Sodium 139, potassium 4.6, chlorides 96, CO2 39, BUN 18, and creatinine 0.48. Blood cultures are negative. Chest x-ray shows bilateral pleural/parenchymal opac ities, left greater than right. Radiologist feels there may be some improvement. Progress note dated 03/28/2023. This is a 74-year-old male seen in room 368. The patient continues on AIRVO, at 60 L/m, and an FiO2 of 90%. The patient does feel better. He's not receiving any IV fluids. Labs today include only a glucose of 89. As mentioned yesterday, the chest x-ray, as interpreted by the radiologist, suggests some improvement. Progress note dated 03/29/2023. The patient is seen today in room 368. He continues on AIRVO, at 60 L/m, with an FiO2 of 90%. He is getting D5 with normal saline, at 50 mL an hour. She does feel like he is getting better. He looks relatively stable, and his respiratory status, despite being on AIRVO, appears stable. White count is 15.2, with a normal hemoglobin, hematocrit, and platelet count. Sodium 140, potassium 4.4, chlorides 99, CO2 39, BUN 25, and creatinine 0.43. Progress note dated 03/30/2023. The patient is seen today in room 368. He is on AIRVO, with settings of 60 L/m, for flow rate, and an FiO2, that has been dropped down to 80%. The patient continues on saline at 75 mL an hour. Chest x-ray ordered for tomorrow, March 31. No new labs today, other than a glucose of 99. 03/31 2023, the patient remains on high flow oxygen. He remains on 60 L an FiO2 has been done to 70%.the patient remains weak, short of breath, oxygenation. 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 At the same time, the patient was diagnosed having an acute Covid 19 infection.repeat chest x-ray from today shows a stable patchy infiltrates in the left along with small bilateral pleural effusion more so on the left. Meanwhile, the patient was diagnosed having Covid 19 infection on 04/19/2023 and the patient is currently on Decadron. The patient is also was found to have Enterobacter in his sputum and a bacterial pneumonia is suspected. His currently not receiving any antibiotic coverage. He is on Decadron 6 mg IV every 24 hours. He is on Ventolin HFA 4 times a day and Symbicort as maintenance. Rest of the home medications have been all resume. Labs showed a basic on of 12.5, hemoglobin 16.9, BUN is 23 with a creatinine of 0.4. His current pulse ox is 94%. Is getting progressively weak and more debilitated. 04/01 2023, the patient remains on high flow oxygen. This morning, the patient remains on 60 L of 70%. He was provided incentive spirometer. He denies having any worsening shortness of breath. He remains on Decadron 6 mg IV every 24 hours. He did have also patchy infiltrates on the left as discussed earlier and the patient was found to have Enterobacter in his sputum. Currently is afebrile. Hemodynamically stable. Oral intake is quite limited increase feeling weak and debilitated. Blood work was from yesterday and no recent blood work from today. His renal function is stable. Hemoglobin stable at 13.9. He is afebrile. Pulse ox is in order of 92%. No other significant events over the past 24 hours. Improvement is slow and limited at this point in time. 13 2022, the patient remains on 60 L an FiO2 of 70% on high flow oxygen. The patient is essentially the same. The patient has a congested cough. Is unable to produce significant sputum. I'm very much interested in obtaining another sputum samples for cultures. Meanwhile, based on his earlier Enterobacter growth in his sputum, the patient is currently on IV cefepime. The patient remains on Decadron 6 mg IV every 24 hours. Repeat chest x-ray from today shows no interval change. There is persistent stable. There is persistent left mid and upper lobe pulmonary infiltrate. There is also small bilateral pleural effusion. The patient is weak. The patient is lethargic. He is arousable and is communicating. Oral intake is quite diminished at this point. He is afebri le. He is hemodynamically stable. On today's evaluation of 04/03/2023, the patient states that he's feeling better. Oxygenation is still impaired and the patient is still requiring high flow oxygen. Currently is on 60 L an FiO2 of 70%. His pulse ox is ranging between 93-95%. He continues to have a congestive cough. IV cefepime was added. The patient remains on steroids. The chest x-ray from yesterday showed a stable consolidation left lung along with a small left-sided pleural effusion. No new labs are available from today. His tolerating diet. He remains on Decadron 6 mg IV every 24 hours. No other significant events overnight. He was encouraged to use incentive spirometer. On today's evaluation of 04/04/2023, the patient remains on Airvo at 60 L an FiO2 of 70%. Is essentially the same setting over the past several days. No major changes in his oxygenation. Continues to produce copious amount of secretions and his cough is wet and congested and the patient is producing mucus. He does not have another complaints at this point. He is weak. Oral intake is quite diminished. Is on IV cefepime. He remains on Decadron. Unfortunately, he is not making much of progress. I discussed the case with his over the phone and explained to do situation. Current pulse ox is in order of 94-95% on the current high flow oxygen setting. 04/05/2023, the patient is on 60 L an FiO2 of 70%. Pulse ox is in order of 95%. Chest x-ray findings remain stable and I reviewed the chest x-ray from today and there is no significant interval change. There is a patchy pulmonary infiltrate persistent in the left lung. No significant interval change. The patient remains on IV cefepime. The patient is afebrile. On blood work, the patient's serum bicarbs of 45 and the patient will be given 2 doses of Diamox today. Sodiums of 132. The white cell count 13.4, hemoglobin is at 14.1 04/06 2023, no major improvement and the patient remains on high flow oxygen at 60 L an FiO2 of 70%. Continues to be on Decadron. Continues to be on cefepime. Most recent chest x-ray from 04/05/2023 showed stable findings. He is a DNR/DNI CODE STATUS. The patient is seen today 04/07/2023 in follow-up on the selective care unit. He is currently sitting up in bed. He is quite weak and debilitated. He continues to require AirVo high flow oxygen at 60 L and 70% FiO2 with O2 satura tion in the 90s. Sputum culture was positive for Enterobacter aerogenes. The cultures revealed no growth. Blood sugar 135. He remains on Symbicort, albuterol, Decadron and vitamin supplements. Heparin for DVT prophylaxis. Antibiotics in the form of cefepime. Family is considering comfort care /hospice. Objective - Vital Signs Vital signs: Vital Signs Temp 98.1 F 04/07/23 08:00 Pulse 82 04/07/23 08:00 Resp 20 04/07/23 08:00 BP 94/58 04/07/23 08:00 Pulse Ox 94 L 04/07/23 11:36 FiO2 70 04/07/23 11:36 Intake & Output 04/06/23 04/07/23 04/07/23 18:59 06:59 18:59 Intake Total 240 240 Output Total 825 250 Balance 240 -825 -10 Intake: Oral 240 240 Output: Urine 825 250 Other: Voiding Method Urinal Urinal Urinal # Voids 1 - Exam GENERAL EXAM: Alert, weak, debilitated 73-year-old male, on AirVo at 60 L and 70% FiO2, fairly comfortable in no apparent distress. HEAD: Normocephalic. EYES: Normal reaction of pupils, equal size. NOSE: Clear with pink turbinates. THROAT: No erythema or exudates. NECK: No masses, no JVD. CHEST: No chest wall deformity. LUNGS: Equal air entry with crackles in the bilateral bases right greater than left CVS: S1 and S2 normal with no audible murmur, regular rhythm. ABDOMEN: No hepatosplenomegaly, normal bowel sounds, no guarding or rigidity. SPINE: No scoliosis or deformity SKIN: No rashes CENTRAL NERVOUS SYSTEM: No focal deficits, tone is normal in all 4 extremities. EXTREMITIES: There is no peripheral edema. No clubbing, no cyanosis. Peripheral pulses are intact. - Labs CBC & Chem 7: 04/05/23 07:36 04/05/23 07:36 Labs: Abnormal Lab Results - Last 24 Hours (Table) 04/06/23 04/06/23 04/07/23 Range/Units 16:12 19:57 11:51 POC Glucose (mg/dL) 142 H 147 H 135 H (70-110) mg/dL Assessment and Plan Assessment: Acute hypoxemic respiratory failure secondary to recurrent/persistent left lower lobe pneumonia. Chest x-ray on arrival demonstrates worsening opacities within the left mid and lower lung zones compared to his recent imaging. There was also suspected right lower lung atelectasis, and trace to small bilateral pleural effusions. Also, did test positive for COVID-19, possibly an incidental finding. The patient has also Enterobacter in his sputum and patchy infiltrates are seen in the left upper lobe and the left lower lobe. Rule out malignancy/primary bronchogenic carcinoma. Rule out bacterial infection/pneumonia as the patient was found to have Enterobacter in his sputum. In addition, he has advanced COPD, and a malignant left-sided pleural effusion. No major interval change in his overall condition and oxygenation over the past 24-48 hours. The patient remains on Decadron. Repeat chest x-ray from today done on 04/02/2023 shows a stable peripheral left lung pulmonary infiltrate and small bilateral pleural effusions. The patient continues to require high flow oxygen to maintain a oxygenation saturation above 90%. Is currently on 60 L with an FiO2 of 70% Leukocytosis, secondary to above. Acute COPD exacerbation, secondary to above. Recent diagnosis of metastatic pulmonary adenocarcinoma based on pleural fluid cytology from a left-sided thoracentesis 03/11/23. History of right apical lung nodule measuring 10 x 7 mm June,. Benign essential hypertension. Hyperlipidemia. GERD. Chronic ongoing tobacco dependence. Plan: The patient was seen and evaluated Labs and medications reviewed The patient remains quite frail and debilitated Difficult to transition down the FiO2 Family is considering comfort care/hospice We'll continue to follow for now I have personally seen and examined the patient, performed the documentation and the assessment and plan as written. Number of minutes spent on the visit: 10.
[2023-04-07 16:43] LABS: Glucose,Whole Blood 150 mg/dL (70-110)
[2023-04-07] MEDS: DEXTROSE 5%-0.9% NACL 1,000 ML IV SCH (17:42)
[2023-04-07] MEDS: ATORVASTATIN 20 MG TAB PO SCH (19:35)
[2023-04-07 20:41] LABS: Glucose,Whole Blood 128 mg/dL (70-110)
[2023-04-08 06:00] LABS: Glucose,Whole Blood 102 mg/dL (70-110)
[2023-04-08] MEDS: droNABinol 2.5 MG CAP PO SCH ×2 (06:29→17:22)
[2023-04-08] MEDS: PANTOPRAZOLE 40 MG TABLET PO SCH (06:29)
[2023-04-08] MEDS: SYMBICORT 160-4.5 MCG INHALER INHALATION SCH ×2 (07:29→21:25)
[2023-04-08] MEDS: ALBUTEROL HFA INHALER INHALATION SCH ×4 (07:29→21:24)
[2023-04-08] MEDS: CEFEPIME 2 GM in SODIUM CHLORIDE 0.9% 100 ML IVPB SCH ×3 (09:23→23:56)
[2023-04-08] MEDS: ASCORBIC ACID 500 MG TAB PO SCH (09:24)
[2023-04-08] MEDS: guaiFENesin 600 MG TABLET.ER PO SCH ×2 (09:24→19:34)
[2023-04-08] MEDS: amLODIPine 10 MG TAB PO SCH (09:24)
[2023-04-08] MEDS: ZINC SULFATE 220 MG CAP PO SCH (09:24)
[2023-04-08] MEDS: HEPARIN SODIUM,PORCINE 5,000 UNIT/ML 1 ML VIAL SQ SCH ×3 (09:24→23:56)
[2023-04-08] MEDS: POTASSIUM CHLORIDE ER 10 MEQ TAB.ER.PRT PO SCH (09:24)
[2023-04-08] MEDS: BISOPROLOL-HCTZ 5-6.25 MG 1 EACH TAB PO SCH (09:24)
[2023-04-08] MEDS: lisinopriL 20 MG TAB PO SCH (09:24)
[2023-04-08] MEDS: ESCITALOPRAM 10 MG TAB PO SCH (09:24)
[2023-04-08] MEDS: FUROSEMIDE 40 MG TAB PO SCH (09:24)
[2023-04-08] MEDS: CHOLECALCIFEROL 25 MCG (1000 IU) TABLET PO SCH (09:24)
[2023-04-08] MEDS: FAMOTIDINE 20 MG TAB PO SCH (09:24)
[2023-04-08] MEDS: DEXAMETHASONE SOD PHOSPHATE 10 MG/ML 1 ML VIAL IVP SCH (09:25)
[2023-04-08 11:40] LABS: Glucose,Whole Blood 113 mg/dL (70-110)
--- NOTE | 2023-04-08 13:04 | P.PN ---
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 Maintained on covid cocktail.Currently maintaining O2 sats in the 90s on airvo flow 60 and Fio2 90. BiPAP at bedside. Reports fatigue, weakness. Afebrile. Pro-calcitonin 0.06. Preliminary blood cultures reporting no growth after 24 hours. Denies chest pain, palpitations. 03/26/2023 maintained on airvo, 60 L FIO2 90%, maintaining O2 sats in the high 80s to low 90s. Mild anxiety. Denies chest pain, palpitations. Afebrile. Preliminary blood cultures reporting no growth after 48 hours. 03/27/2023 Feels better this morning. Received Xanax last night, rested better. Continues on Airvo 60 L, FiO2 90% and maintaining O2 sats in the high 80s to low 90s. Chest x-ray reporting ongoing bilateral pleural personal opacity slough greater than right, possibly slight improvement right base. These Bicarb 39, BUN 18, creatinine 0.48. Hemoglobin 14.8, platelets 168. Preliminary blood cultures reporting no growth after 72 hours. Afebrile. PILE HEADER increased to 18.6. Blood sugars controlled. 03/28/2023 maintained on Airvo 60 L, FiO2 90%, O2 sats fluctuates from high 80s to high 90s. Diet intake poor, consumed 25% of breakfast. Denies nausea, vomiting. Denies abdominal pain. Continues on COvid Cocktail. Afebrile. Preliminary blood cultures reporting no growth after 72 hours. Feels discouraged . 04/07/23 afebrile, continues on cefepime, Decadron. Maintained on airvo 60 L/70% FiO2 maintaining O2 sats in the mid 90s. Diet intake including HS snacks, supplement intake poor, on Marinol. 04/08/2023 continues on airvo 60 L/70% FiO2 maintaining O2 sats in the low 90s. Maintained on antibiotics of cefepime and Covid cocktail. Afebrile. Fatigued. Objective - Vital Signs Vital signs: Vital Signs Temp 98.2 F 04/08/23 08:00 Pulse 100 04/08/23 08:00 Resp 20 04/08/23 08:00 BP 95/63 04/08/23 08:00 Pulse Ox 94 L 04/08/23 11:15 FiO2 65 04/08/23 11:15 Intake & Output 04/07/23 04/08/23 04/08/23 18:59 06:59 18:59 Intake Total 420 180 Output Total 250 600 Balance 170 -600 180 Weight 74.389 kg Intake: Oral 420 180 Output: Urine 250 600 Other: Voiding Method Urinal Urinal Urinal # Voids 1 - Exam General: Patient awake, alert and oriented times 3. wearing AIrvo, fatigued, frail. HEENT: Normocephalic, PERRL. EOMI. Neck: supple,No JVD. Cardiac: Regular S1 and S2. No S3. No S4. No clicks, rubs. No murmur. Lungs: Increased respiratory effort .Diminished bilateral breath sounds, scattered rhonchi, basilar crackles. Abdomen: Soft, nontender, no guarding. Bowel sounds present and normoactive in all 4 quadrants. Extremes: [No edema, no cyanosis no claudication normal pulses. Skin: [No rash, warm and dry.] Neurologic: CN II - XII grossly intact. - Labs CBC & Chem 7: 04/05/23 07:36 04/05/23 07:36 Labs: Abnormal Lab Results - Last 24 Hours (Table) 04/07/23 04/07/23 04/07/23 Range/Units 11:51 16:41 20:40 POC Glucose (mg/dL) 135 H 150 H 128 H (70-110) mg/dL Assessment and Plan Assessment: Assessment and Plan (1) Acute respiratory failure with hypoxia Current Visit: Yes Status: Acute Code(s): J96.01 - ACUTE RESPIRATORY FAILURE WITH HYPOXIA SNOMED Code(s): 08249443 (2) COPD (chronic obstructive pulmonary disease) Current Visit: Yes Status: Acute Code(s): J44.9 - CHRONIC OBSTRUCTIVE PULMONARY DISEASE, UNSPECIFIED SNOMED Code(s): 62399505 (3) COVID-19 Current Visit: Yes Status: Acute Code(s): U07.1 - COVID-19 SNOMED Code(s): 396111336 (4) Pneumonia, sputum cultures reporting Enterobacter aerogenes Current Visit: Yes Status: Acute Code(s): J18.9 - PNEUMONIA, UNSPECIFIED ORGANISM SNOMED Code(s): 381177812 (5) Acute and chronic respiratory failure ([id number]) Current Visit: No Status: Acute Code(s): J96.20 - ACUTE AND CHR RESP FAILURE, UNSP W HYPOXIA OR HYPERCAPNIA SNOMED Code(s): 18613512 (6) Adenocarcinoma of lung Current Visit: No Status: Acute Priority: High Code(s): C34.90 - MALIGNANT NEOPLASM OF UNSP PART OF UNSP BRONCHUS OR LUNG SNOMED Code(s): 343192316 (7) Atherosclerosis of abdominal aorta Current Visit: No Status: Acute Code(s): I70.0 - ATHEROSCLEROSIS OF AORTA SNOMED Code(s): 053487283 (8) No code, No CPR, No intubation Plan: Continue on current medication regime ,monitoring and symptomatic treatment.Medi Boots to be kept on-high risk for skin integrity breakdown. Airvo dependent.Debilitated. maintaining cefepime, covid c ocktail,bronchodilators.Maintain supportive care.Prognosis poor given multiple complex medical issues. The impression and plan of care has been dictated as directed. : I performed a history and examination of this patient, discussed the same with the dictator. I agree with the dictator's note ,documented as a scribe. Any additional findings or plans will be noted.
--- NOTE | 2023-04-08 14:18 | P.PN ---
Subjective Progress Note Date: 04/08/23 I am seeing this patient in new consultation today 03/24/2023 for suspected left lower lobe pneumonia. Patient is a 73-year-old white male with past medical history significant for recent admission with left lower lobe pneumonia, discharged on March 17. During this admission, the patient was also found to have metastatic adenocarcinoma of the lung based on pleural fluid cytology from a left sided thoracentesis. He also has history of COPD, hypertension, hyperlipidemia, GERD, and ongoing chronic tobacco dependence. Patient is known to have a 10 mm x 7mm right upper lung nodule, originally seen back in June,. His PCP is Dr. Nichols. Chest CT from his most recent admission, March 07, demonstrated a right upper lung bronchus large airway occlusion concerning for obstructive mass. There was also a loculated left pleural effusion with left lung consolidation. The patient was treated with IV antibiotics and discharged home on Augmentin. He was established with an oncologist, and is reportedly going to undergo a PET scan outpatient. Patient returned to the emergency room last night, reporting that he's had ongoing progressively worsening shortness of breath since discharge. He admits an associated nonproductive cough. Denies any fever, chills, myalgias, hemoptysis. Denies any chest pain, palpitations, lower extremity edema, syncope. A chest x-ray done on arrival, showed worsening airspace opacities within the left mid and lower lung zones compared to prior imaging. There was also suspected right lower lung atelectasis, and trace to small bilateral pleural effusions. Patient did test positive for COVID-19, possibly an incidental finding. Patient is currently sitting up in bed, on BiPAP with settings 12/6 and FiO2 of 60%. Appears fairly comfortable. Respiratory rate is high 20s to low 30s and is achieving tidal volumes around 400. CBC on arrival shows leukocytosis with WBC count of 16.9, hemoglobin 14.7, hematocrit 45.4, platelets 150. BMP shows sodium 133, potassium 4.1, chloride 92, serum bicarbonate 39, BUN 17, creatinine 0.43, glucose 99. Currently receiving normal saline at 100 ML's per hour. He was started on empiric Zosyn and azithromycin. Currently afebrile. Also receiving Ventolin HFA, Symbicort inhaler, and IV Decadron. Patient is being monitored closely on the cardiac stepdown unit. Progress note dated 03/25/2023. 73-year-old male admitted on March 24, with a diagnosis of possible left lower lobe pneumonia, and hypoxemic respiratory failure. Currently, the patient is on BiPAP, with settings of 12/6, and 70%. He has no IV fluids running at this time. He did test positive for coronavirus. He does have a history of lung cancer, adenocarcinoma. The only labs today include glucose of 110. Chest x-ray from March 24, shows a small to moderate-sized left pleural effusion, with increased small right pleural effusion. There is also some right lower lung consolidation. Progress note dated 03/26/2023. 73-year-old male admitted on March 24, with a diagnosis of possible left lower lobe pneumonia and hypoxemic respiratory failure. The patient is currently on AIRVO, with settings of 60 L/m and an FiO2 of 90%. He's not receiving any IV fluids. A chest x-ray is ordered for March 27. The only lab today with a glucose of 111. Clinically, the patient's doing about the same. Blood cultures are currently negative. Progress note dated 03/27/2023. The patient is seen today in room 368. He continues on AIRVO, with settings of 60 L/m, with an FiO2 of 90%. The chest x-ray done today, shows worsening infiltrates. Clinically, the patient appears reasonably stable. White count 18.6, hemoglobin 10.8, hematocrit 46.2, and platelet count was normal. Sodium 139, potassium 4.6, chlorides 96, CO2 39, BUN 18, and creatinine 0.48. Blood cultures are negative. Chest x-ray shows bilateral pleural/parenchymal opac ities, left greater than right. Radiologist feels there may be some improvement. Progress note dated 03/28/2023. This is a 74-year-old male seen in room 368. The patient continues on AIRVO, at 60 L/m, and an FiO2 of 90%. The patient does feel better. He's not receiving any IV fluids. Labs today include only a glucose of 89. As mentioned yesterday, the chest x-ray, as interpreted by the radiologist, suggests some improvement. Progress note dated 03/29/2023. The patient is seen today in room 368. He continues on AIRVO, at 60 L/m, with an FiO2 of 90%. He is getting D5 with normal saline, at 50 mL an hour. She does feel like he is getting better. He looks relatively stable, and his respiratory status, despite being on AIRVO, appears stable. White count is 15.2, with a normal hemoglobin, hematocrit, and platelet count. Sodium 140, potassium 4.4, chlorides 99, CO2 39, BUN 25, and creatinine 0.43. Progress note dated 03/30/2023. The patient is seen today in room 368. He is on AIRVO, with settings of 60 L/m, for flow rate, and an FiO2, that has been dropped down to 80%. The patient continues on saline at 75 mL an hour. Chest x-ray ordered for tomorrow, March 31. No new labs today, other than a glucose of 99. 03/31 2023, the patient remains on high flow oxygen. He remains on 60 L an FiO2 has been done to 70%.the patient remains weak, short of breath, oxygenation. 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 At the same time, the patient was diagnosed having an acute Covid 19 infection.repeat chest x-ray from today shows a stable patchy infiltrates in the left along with small bilateral pleural effusion more so on the left. Meanwhile, the patient was diagnosed having Covid 19 infection on 04/19/2023 and the patient is currently on Decadron. The patient is also was found to have Enterobacter in his sputum and a bacterial pneumonia is suspected. His currently not receiving any antibiotic coverage. He is on Decadron 6 mg IV every 24 hours. He is on Ventolin HFA 4 times a day and Symbicort as maintenance. Rest of the home medications have been all resume. Labs showed a basic on of 12.5, hemoglobin 16.9, BUN is 23 with a creatinine of 0.4. His current pulse ox is 94%. Is getting progressively weak and more debilitated. 04/01 2023, the patient remains on high flow oxygen. This morning, the patient remains on 60 L of 70%. He was provided incentive spirometer. He denies having any worsening shortness of breath. He remains on Decadron 6 mg IV every 24 hours. He did have also patchy infiltrates on the left as discussed earlier and the patient was found to have Enterobacter in his sputum. Currently is afebrile. Hemodynamically stable. Oral intake is quite limited increase feeling weak and debilitated. Blood work was from yesterday and no recent blood work from today. His renal function is stable. Hemoglobin stable at 13.9. He is afebrile. Pulse ox is in order of 92%. No other significant events over the past 24 hours. Improvement is slow and limited at this point in time. 13 2022, the patient remains on 60 L an FiO2 of 70% on high flow oxygen. The patient is essentially the same. The patient has a congested cough. Is unable to produce significant sputum. I'm very much interested in obtaining another sputum samples for cultures. Meanwhile, based on his earlier Enterobacter growth in his sputum, the patient is currently on IV cefepime. The patient remains on Decadron 6 mg IV every 24 hours. Repeat chest x-ray from today shows no interval change. There is persistent stable. There is persistent left mid and upper lobe pulmonary infiltrate. There is also small bilateral pleural effusion. The patient is weak. The patient is lethargic. He is arousable and is communicating. Oral intake is quite diminished at this point. He is afebri le. He is hemodynamically stable. On today's evaluation of 04/03/2023, the patient states that he's feeling better. Oxygenation is still impaired and the patient is still requiring high flow oxygen. Currently is on 60 L an FiO2 of 70%. His pulse ox is ranging between 93-95%. He continues to have a congestive cough. IV cefepime was added. The patient remains on steroids. The chest x-ray from yesterday showed a stable consolidation left lung along with a small left-sided pleural effusion. No new labs are available from today. His tolerating diet. He remains on Decadron 6 mg IV every 24 hours. No other significant events overnight. He was encouraged to use incentive spirometer. On today's evaluation of 04/04/2023, the patient remains on Airvo at 60 L an FiO2 of 70%. Is essentially the same setting over the past several days. No major changes in his oxygenation. Continues to produce copious amount of secretions and his cough is wet and congested and the patient is producing mucus. He does not have another complaints at this point. He is weak. Oral intake is quite diminished. Is on IV cefepime. He remains on Decadron. Unfortunately, he is not making much of progress. I discussed the case with his over the phone and explained to do situation. Current pulse ox is in order of 94-95% on the current high flow oxygen setting. 04/05/2023, the patient is on 60 L an FiO2 of 70%. Pulse ox is in order of 95%. Chest x-ray findings remain stable and I reviewed the chest x-ray from today and there is no significant interval change. There is a patchy pulmonary infiltrate persistent in the left lung. No significant interval change. The patient remains on IV cefepime. The patient is afebrile. On blood work, the patient's serum bicarbs of 45 and the patient will be given 2 doses of Diamox today. Sodiums of 132. The white cell count 13.4, hemoglobin is at 14.1 04/06 2023, no major improvement and the patient remains on high flow oxygen at 60 L an FiO2 of 70%. Continues to be on Decadron. Continues to be on cefepime. Most recent chest x-ray from 04/05/2023 showed stable findings. He is a DNR/DNI CODE STATUS. The patient is seen today 04/07/2023 in follow-up on the selective care unit. He is currently sitting up in bed. He is quite weak and debilitated. He continues to require AirVo high flow oxygen at 60 L and 70% FiO2 with O2 satura tion in the 90s. Sputum culture was positive for Enterobacter aerogenes. The cultures revealed no growth. Blood sugar 135. He remains on Symbicort, albuterol, Decadron and vitamin supplements. Heparin for DVT prophylaxis. Antibiotics in the form of cefepime. Family is considering comfort care /hospice. The patient is seen today 04/08/2023 in follow-up on the selective care unit. He is awake. Quite weak and debilitated. He remains on AirVo high flow oxygen at 60 L and 70% FiO2. Sputum culture was positive for Enterobacter aerogenes. Blood cultures revealed no growth. Glucose 113. He is continued on Symbicort, albuterol, vitamin supplements. She remains on Decadron. Antibiotics in the form of cefepime. Remains on diuretics. Currently in a negative balance. Objective - Vital Signs Vital signs: Vital Signs Temp 98.4 F 04/08/23 12:00 Pulse 87 04/08/23 12:00 Resp 20 04/08/23 12:00 BP 88/55 04/08/23 12:00 Pulse Ox 93 L 04/08/23 12:00 FiO2 70 04/08/23 12:00 Intake & Output 04/07/23 04/08/23 04/08/23 18:59 06:59 18:59 Intake Total 420 420 Output Total 250 600 Balance 170 -600 420 Weight 74.389 kg Intake: Oral 420 420 Output: Urine 250 600 Other: Voiding Method Urinal Urinal Urinal # Voids 1 # Bowel Movements 1 - Exam GENERAL EXAM: Alert, weak, 73-year-old male, remains on AirVo at 60 L and 70% FiO2, fairly comfortable in no apparent distress. HEAD: Normocephalic. EYES: Normal reaction of pupils, equal size. NOSE: Clear with pink turbinates. THROAT: No erythema or exudates. NECK: No masses, no JVD. CHEST: No chest wall deformity. LUNGS: Equal air entry with crackles in the bilateral bases right greater than left CVS: S1 and S2 normal with no audible murmur, regular rhythm. ABDOMEN: No hepatosplenomegaly, normal bowel sounds, no guarding or rigidity. SPINE: No scoliosis or deformity SKIN: No rashes CENTRAL NERVOUS SYSTEM: No focal deficits, tone is normal in all 4 extremities. EXTREMITIES: There is no peripheral edema. No clubbing, no cyanosis. Peripheral pulses are intact. - Labs CBC & Chem 7: 04/05/23 07:36 04/05/23 07:36 Labs: Abnormal Lab Results - Last 24 Hours (Table) 04/07/23 04/07/23 04/08/23 Range/Units 16:41 20:40 11:39 POC Glucose (mg/dL) 150 H 128 H 113 H (70-110) mg/dL Assessment and Plan Assessment: Acute hypoxemic respiratory failure secondary to recurrent/persistent left lower lobe pneumonia. Chest x-ray on arrival demonstrates worsening opacities within the left mid and lower lung zones compared to his recent imaging. There was also suspected right lower lung atelectasis, and trace to small bilateral pleural effusions. Also, did test positive for COVID-19, possibly an incidental finding. The patient has also Enterobacter in his sputum and patchy infiltrates are seen in the left upper lobe and the left lower lobe. Rule out malignancy/primary bronchogenic carcinoma. Rule out bacterial infection/pneu monia as the patient was found to have Enterobacter in his sputum. In addition, he has advanced COPD, and a malignant left-sided pleural effusion. No major interval change in his overall condition and oxygenation. The patient remains on Decadron. Repeat chest x-ray from 04/05/2023 shows a stable peripheral left lung pulmonary infiltrate and small bilateral pleural effusions. The patient continues to require AirVo high flow oxygen 60 L with an FiO2 of 70% to maintain a oxygenation saturation above 90% Leukocytosis, secondary to above Acute COPD exacerbation, secondary to above Recent diagnosis of metastatic pulmonary adenocarcinoma based on pleural fluid cytology from a left-sided thoracentesis 03/11/23 History of right apical lung nodule measuring 10 x 7 mm June, Benign essential hypertension Hyperlipidemia GERD Chronic ongoing tobacco dependence Plan: The patient was seen and evaluated Labs and medications reviewed The patient remains quite frail and debilitated Difficult to transition down the FiO2 DO NOT RESUSCITATE/DO NOT INTUBATE CODE STATUS Family is considering comfort care/hospice We'll continue to follow for now for now I have personally seen and examined the patient, performed the documentation and the assessment and plan as written. Number of minutes spent on the visit: 10.
[2023-04-08 16:33] LABS: Glucose,Whole Blood 175 mg/dL (70-110)
[2023-04-08] MEDS: DEXTROSE 5%-0.9% NACL 1,000 ML IV SCH (18:17)
[2023-04-08] MEDS: ATORVASTATIN 20 MG TAB PO SCH (19:34)
[2023-04-08 20:31] LABS: Glucose,Whole Blood 145 mg/dL (70-110)
[2023-04-09 05:59] LABS: Glucose,Whole Blood 105 mg/dL (70-110)
[2023-04-09] MEDS: droNABinol 2.5 MG CAP PO SCH ×2 (06:30→16:52)
[2023-04-09] MEDS: PANTOPRAZOLE 40 MG TABLET PO SCH (06:30)
[2023-04-09 08:06] LABS: Basophils % (A) 0 %; Eosinophils # (A) 0.1 k/uL (0-0.7); Eosinophils % (A) 1 %; HCT 39.4 % (39.0-53.0); HGB 12.8 gm/dL (13.0-17.5); Lymphocytes # (A) 0.6 k/uL (1.0-4.8); Lymphocytes % (A) 3 %; MCH 29.4 pg (25.0-35.0); MCHC 32.4 g/dL (31.0-37.0); MCV 90.7 fL (80.0-100.0); Mean Platelet Volume 9.5; Monocytes # (A) 0.8 k/uL (0-1.0); Monocytes % (A) 5 %; Neutrophils # (A) 16.6 k/uL (1.3-7.7); Neutrophils % (A) 90 %; Platelet Count 143 k/uL (150-450); RBC 4.34 m/uL (4.30-5.90); RDW 14.5 % (11.5-15.5); WBC 18.4 k/uL (3.8-10.6)
[2023-04-09 08:16] LABS: ALT 108 U/L (4-49); AST 46 U/L (17-59); African American GFR (CKD) >90 (>60 ml/min/1.73 sqM); Albumin 2.9 g/dL (3.5-5.0); Alkaline Phosphatase 98 U/L (38-126); Anion Gap 0 mmol/L; Blood Urea Nitrogen 49 mg/dL (9-20); Calcium 9.1 mg/dL (8.4-10.2); Carbon Dioxide 39 mmol/L (22-30); Chloride 97 mmol/L (98-107); Glucose 96 mg/dL (74-99); Non-African American GFR(CKD) >90 (>60 ml/min/1.73 sqM); Potassium 4.8 mmol/L (3.5-5.1); Sodium 136 mmol/L (137-145); Total Bilirubin 0.7 mg/dL (0.2-1.3); Total Protein 6.2 g/dL (6.3-8.2)
[2023-04-09] MEDS: SYMBICORT 160-4.5 MCG INHALER INHALATION SCH ×2 (08:18→20:25)
[2023-04-09] MEDS: ALBUTEROL HFA INHALER INHALATION SCH ×4 (08:18→20:25)
[2023-04-09] MEDS: CEFEPIME 2 GM in SODIUM CHLORIDE 0.9% 100 ML IVPB SCH ×3 (09:25→23:44)
[2023-04-09] MEDS: HEPARIN SODIUM,PORCINE 5,000 UNIT/ML 1 ML VIAL SQ SCH ×3 (09:26→23:44)
[2023-04-09] MEDS: DEXAMETHASONE SOD PHOSPHATE 10 MG/ML 1 ML VIAL IVP SCH (09:26)
[2023-04-09] MEDS: ASCORBIC ACID 500 MG TAB PO SCH (09:27)
[2023-04-09] MEDS: CHOLECALCIFEROL 25 MCG (1000 IU) TABLET PO SCH (09:27)
[2023-04-09] MEDS: ZINC SULFATE 220 MG CAP PO SCH (09:27)
[2023-04-09] MEDS: POTASSIUM CHLORIDE ER 10 MEQ TAB.ER.PRT PO SCH (09:27)
[2023-04-09] MEDS: FUROSEMIDE 40 MG TAB PO SCH (09:27)
[2023-04-09] MEDS: guaiFENesin 600 MG TABLET.ER PO SCH ×2 (09:27→20:37)
[2023-04-09] MEDS: FAMOTIDINE 20 MG TAB PO SCH (09:27)
[2023-04-09] MEDS: ESCITALOPRAM 10 MG TAB PO SCH (09:27)
[2023-04-09] MEDS: BISOPROLOL-HCTZ 5-6.25 MG 1 EACH TAB PO SCH (09:28)
[2023-04-09 11:42] LABS: Glucose,Whole Blood 113 mg/dL (70-110)
[2023-04-09] MEDS: lisinopriL 20 MG TAB PO SCH (13:04)
[2023-04-09] MEDS: amLODIPine 10 MG TAB PO SCH (13:04)
--- NOTE | 2023-04-09 14:16 | P.PN ---
Subjective Progress Note Date: 04/09/23 I am seeing this patient in new consultation today 03/24/2023 for suspected left lower lobe pneumonia. Patient is a 73-year-old white male with past medical history significant for recent admission with left lower lobe pneumonia, discharged on March 17. During this admission, the patient was also found to have metastatic adenocarcinoma of the lung based on pleural fluid cytology from a left sided thoracentesis. He also has history of COPD, hypertension, hyperlipidemia, GERD, and ongoing chronic tobacco dependence. Patient is known to have a 10 mm x 7mm right upper lung nodule, originally seen back in June,. His PCP is Dr. Nichols. Chest CT from his most recent admission, March 07, demonstrated a right upper lung bronchus large airway occlusion concerning for obstructive mass. There was also a loculated left pleural effusion with left lung consolidation. The patient was treated with IV antibiotics and discharged home on Augmentin. He was established with an oncologist, and is reportedly going to undergo a PET scan outpatient. Patient returned to the emergency room last night, reporting that he's had ongoing progressively worsening shortness of breath since discharge. He admits an associated nonproductive cough. Denies any fever, chills, myalgias, hemoptysis. Denies any chest pain, palpitations, lower extremity edema, syncope. A chest x-ray done on arrival, showed worsening airspace opacities within the left mid and lower lung zones compared to prior imaging. There was also suspected right lower lung atelectasis, and trace to small bilateral pleural effusions. Patient did test positive for COVID-19, possibly an incidental finding. Patient is currently sitting up in bed, on BiPAP with settings 12/6 and FiO2 of 60%. Appears fairly comfortable. Respiratory rate is high 20s to low 30s and is achieving tidal volumes around 400. CBC on arrival shows leukocytosis with WBC count of 16.9, hemoglobin 14.7, hematocrit 45.4, platelets 150. BMP shows sodium 133, potassium 4.1, chloride 92, serum bicarbonate 39, BUN 17, creatinine 0.43, glucose 99. Currently receiving normal saline at 100 ML's per hour. He was started on empiric Zosyn and azithromycin. Currently afebrile. Also receiving Ventolin HFA, Symbicort inhaler, and IV Decadron. Patient is being monitored closely on the cardiac stepdown unit. Progress note dated 03/25/2023. 73-year-old male admitted on March 24, with a diagnosis of possible left lower lobe pneumonia, and hypoxemic respiratory failure. Currently, the patient is on BiPAP, with settings of 12/6, and 70%. He has no IV fluids running at this time. He did test positive for coronavirus. He does have a history of lung cancer, adenocarcinoma. The only labs today include glucose of 110. Chest x-ray from March 24, shows a small to moderate-sized left pleural effusion, with increased small right pleural effusion. There is also some right lower lung consolidation. Progress note dated 03/26/2023. 73-year-old male admitted on March 24, with a diagnosis of possible left lower lobe pneumonia and hypoxemic respiratory failure. The patient is currently on AIRVO, with settings of 60 L/m and an FiO2 of 90%. He's not receiving any IV fluids. A chest x-ray is ordered for March 27. The only lab today with a glucose of 111. Clinically, the patient's doing about the same. Blood cultures are currently negative. Progress note dated 03/27/2023. The patient is seen today in room 368. He continues on AIRVO, with settings of 60 L/m, with an FiO2 of 90%. The chest x-ray done today, shows worsening infiltrates. Clinically, the patient appears reasonably stable. White count 18.6, hemoglobin 10.8, hematocrit 46.2, and platelet count was normal. Sodium 139, potassium 4.6, chlorides 96, CO2 39, BUN 18, and creatinine 0.48. Blood cultures are negative. Chest x-ray shows bilateral pleural/parenchymal opac ities, left greater than right. Radiologist feels there may be some improvement. Progress note dated 03/28/2023. This is a 74-year-old male seen in room 368. The patient continues on AIRVO, at 60 L/m, and an FiO2 of 90%. The patient does feel better. He's not receiving any IV fluids. Labs today include only a glucose of 89. As mentioned yesterday, the chest x-ray, as interpreted by the radiologist, suggests some improvement. Progress note dated 03/29/2023. The patient is seen today in room 368. He continues on AIRVO, at 60 L/m, with an FiO2 of 90%. He is getting D5 with normal saline, at 50 mL an hour. She does feel like he is getting better. He looks relatively stable, and his respiratory status, despite being on AIRVO, appears stable. White count is 15.2, with a normal hemoglobin, hematocrit, and platelet count. Sodium 140, potassium 4.4, chlorides 99, CO2 39, BUN 25, and creatinine 0.43. Progress note dated 03/30/2023. The patient is seen today in room 368. He is on AIRVO, with settings of 60 L/m, for flow rate, and an FiO2, that has been dropped down to 80%. The patient continues on saline at 75 mL an hour. Chest x-ray ordered for tomorrow, March 31. No new labs today, other than a glucose of 99. 03/31 2023, the patient remains on high flow oxygen. He remains on 60 L an FiO2 has been done to 70%.the patient remains weak, short of breath, oxygenation. 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 At the same time, the patient was diagnosed having an acute Covid 19 infection.repeat chest x-ray from today shows a stable patchy infiltrates in the left along with small bilateral pleural effusion more so on the left. Meanwhile, the patient was diagnosed having Covid 19 infection on 04/19/2023 and the patient is currently on Decadron. The patient is also was found to have Enterobacter in his sputum and a bacterial pneumonia is suspected. His currently not receiving any antibiotic coverage. He is on Decadron 6 mg IV every 24 hours. He is on Ventolin HFA 4 times a day and Symbicort as maintenance. Rest of the home medications have been all resume. Labs showed a basic on of 12.5, hemoglobin 16.9, BUN is 23 with a creatinine of 0.4. His current pulse ox is 94%. Is getting progressively weak and more debilitated. 04/01 2023, the patient remains on high flow oxygen. This morning, the patient remains on 60 L of 70%. He was provided incentive spirometer. He denies having any worsening shortness of breath. He remains on Decadron 6 mg IV every 24 hours. He did have also patchy infiltrates on the left as discussed earlier and the patient was found to have Enterobacter in his sputum. Currently is afebrile. Hemodynamically stable. Oral intake is quite limited increase feeling weak and debilitated. Blood work was from yesterday and no recent blood work from today. His renal function is stable. Hemoglobin stable at 13.9. He is afebrile. Pulse ox is in order of 92%. No other significant events over the past 24 hours. Improvement is slow and limited at this point in time. 13 2022, the patient remains on 60 L an FiO2 of 70% on high flow oxygen. The patient is essentially the same. The patient has a congested cough. Is unable to produce significant sputum. I'm very much interested in obtaining another sputum samples for cultures. Meanwhile, based on his earlier Enterobacter growth in his sputum, the patient is currently on IV cefepime. The patient remains on Decadron 6 mg IV every 24 hours. Repeat chest x-ray from today shows no interval change. There is persistent stable. There is persistent left mid and upper lobe pulmonary infiltrate. There is also small bilateral pleural effusion. The patient is weak. The patient is lethargic. He is arousable and is communicating. Oral intake is quite diminished at this point. He is afebri le. He is hemodynamically stable. On today's evaluation of 04/03/2023, the patient states that he's feeling better. Oxygenation is still impaired and the patient is still requiring high flow oxygen. Currently is on 60 L an FiO2 of 70%. His pulse ox is ranging between 93-95%. He continues to have a congestive cough. IV cefepime was added. The patient remains on steroids. The chest x-ray from yesterday showed a stable consolidation left lung along with a small left-sided pleural effusion. No new labs are available from today. His tolerating diet. He remains on Decadron 6 mg IV every 24 hours. No other significant events overnight. He was encouraged to use incentive spirometer. On today's evaluation of 04/04/2023, the patient remains on Airvo at 60 L an FiO2 of 70%. Is essentially the same setting over the past several days. No major changes in his oxygenation. Continues to produce copious amount of secretions and his cough is wet and congested and the patient is producing mucus. He does not have another complaints at this point. He is weak. Oral intake is quite diminished. Is on IV cefepime. He remains on Decadron. Unfortunately, he is not making much of progress. I discussed the case with his over the phone and explained to do situation. Current pulse ox is in order of 94-95% on the current high flow oxygen setting. 04/05/2023, the patient is on 60 L an FiO2 of 70%. Pulse ox is in order of 95%. Chest x-ray findings remain stable and I reviewed the chest x-ray from today and there is no significant interval change. There is a patchy pulmonary infiltrate persistent in the left lung. No significant interval change. The patient remains on IV cefepime. The patient is afebrile. On blood work, the patient's serum bicarbs of 45 and the patient will be given 2 doses of Diamox today. Sodiums of 132. The white cell count 13.4, hemoglobin is at 14.1 04/06 2023, no major improvement and the patient remains on high flow oxygen at 60 L an FiO2 of 70%. Continues to be on Decadron. Continues to be on cefepime. Most recent chest x-ray from 04/05/2023 showed stable findings. He is a DNR/DNI CODE STATUS. The patient is seen today 04/07/2023 in follow-up on the selective care unit. He is currently sitting up in bed. He is quite weak and debilitated. He continues to require AirVo high flow oxygen at 60 L and 70% FiO2 with O2 satura tion in the 90s. Sputum culture was positive for Enterobacter aerogenes. The cultures revealed no growth. Blood sugar 135. He remains on Symbicort, albuterol, Decadron and vitamin supplements. Heparin for DVT prophylaxis. Antibiotics in the form of cefepime. Family is considering comfort care /hospice. The patient is seen today 04/08/2023 in follow-up on the selective care unit. He is awake. Quite weak and debilitated. He remains on AirVo high flow oxygen at 60 L and 70% FiO2. Sputum culture was positive for Enterobacter aerogenes. Blood cultures revealed no growth. Glucose 113. He is continued on Symbicort, albuterol, vitamin supplements. She remains on Decadron. Antibiotics in the form of cefepime. Remains on diuretics. Currently in a negative balance. The patient is seen today 04/09/2023 in follow-up on the selective care unit. He remains awake and alert. Resting in bed. Still requiring AirVo high flow nasal cannula at 60 L and 65% FiO2. Sputum culture positive for Enterobacter aerogenes. Blood cultures reveal no growth. White count 18.4. Hemoglobin 12.8. Platelets 143. Sodium 136. Potassium 4.8. Bicarb. 9. BUN 49. Creatinine 0.40. AST 46. ALT 108. Albumin 2.9. He is continued on Symbicort, albuterol, vitamin supplements. She remains on Decadron. Antibiotics in the form of cefepime. Remains on diuretics. Objective - Vital Signs Vital signs: Vital Signs Temp 97.7 F 04/09/23 08:00 Pulse 77 04/09/23 12:00 Resp 20 04/09/23 13:37 BP 98/67 04/09/23 12:00 Pulse Ox 91 L 04/09/23 12:00 FiO2 66 04/09/23 08:18 Intake & Output 04/08/23 04/09/23 04/09/23 18:59 06:59 18:59 Intake Total 420 180 Output Total 600 Balance 420 -420 Intake: Oral 420 180 Output: Urine 600 Other: Voiding Method Urinal Urinal Urinal # Voids 1 # Bowel Movements 1 1 1 - Exam GENERAL EXAM: Alert, 73-year-old male, resting in bed, remains on AirVo at 60 L and 65% FiO2, fairly comfortable. HEAD: Normocephalic. EYES: Normal reaction of pupils, equal size. NOSE: Clear with pink turbinates. THROAT: No erythema or exudates. NECK: No masses, no JVD. CHEST: No chest wall deformity. LUNGS: Equal air entry with crackles in the bilateral bases right greater than left CVS: S1 and S2 normal with no audible murmur, regular rhythm. ABDOMEN: No hepatosplenomegaly, normal bowel sounds, no guarding or rigidity. SPINE: No scoliosis or deformity SKIN: No rashes CENTRAL NERVOUS SYSTEM: No focal deficits, tone is normal in all 4 extremities. EXTREMITIES: There is no peripheral edema. No clubbing, no cyanosis. Peripheral pulses are intact. - Labs CBC & Chem 7: 04/09/23 07:47 04/09/23 07:47 Labs: Abnormal Lab Results - Last 24 Hours (Table) 04/08/23 04/08/23 04/09/23 Range/Units 16:31 20:29 07:47 WBC 18.4 H (3.8-10.6) k/uL Hgb 12.8 L (13.0-17.5) gm/dL Plt Count 143 L (150-450) k/uL Neutrophils # 16.6 H (1.3-7.7) k/uL Lymphocytes # 0.6 L (1.0-4.8) k/uL Sodium (137-145) mmol/L Chloride (98-107) mmol/L Carbon Dioxide (22-30) mmol/L BUN (9-20) mg/dL Creatinine (0.66-1.25) mg/dL POC Glucose (mg/dL) 175 H 145 H (70-110) mg/dL ALT (4-49) U/L Total Protein (6.3-8.2) g/dL Albumin (3.5-5.0) g/dL 04/09/23 04/09/23 Range/Units 07:47 11:40 WBC (3.8-10.6) k/uL Hgb (13.0-17.5) gm/dL Plt Count (150-450) k/uL Neutrophils # (1.3-7.7) k/uL Lymphocytes # (1.0-4.8) k/uL Sodium 136 L (137-145) mmol/L Chloride 97 L (98-107) mmol/L Carbon Dioxide 39 H (22-30) mmol/L BUN 49 H (9-20) mg/dL Creatinine 0.40 L (0.66-1.25) mg/dL POC Glucose (mg/dL) 113 H (70-110) mg/dL ALT 108 H (4-49) U/L Total Protein 6.2 L (6.3-8.2) g/dL Albumin 2.9 L (3.5-5.0) g/dL Assessment and Plan Assessment: Acute hypoxemic respiratory failure secondary to recurrent/persistent left lower lobe pneumonia. Chest x-ray on arrival demonstrates worsening opacities within the left mid and lower lung zones compared to his recent imaging. There was also suspected right lower lung atelectasis, and trace to small bilateral pleural effusions. Also, did test positive for COVID-19, possibly an incidental finding . The patient has also Enterobacter in his sputum and patchy infiltrates are seen in the left upper lobe and the left lower lobe. Rule out malignancy/primary bronchogenic carcinoma. Rule out bacterial infection/pneumonia as the patient was found to have Enterobacter in his sputum. In addition, he has advanced COPD, and a malignant left-sided pleural effusion. No major interval change in his overall condition and oxygenation. The patient remains on Decadron. Repeat chest x-ray from 04/05/2023 shows a stable peripheral left lung pulmonary infiltrate and small bilateral pleural effusions. The patient continues to require AirVo high flow oxygen 60 L with an FiO2 of 65% to maintain a oxygenation saturation above 90% Leukocytosis, secondary to above Acute COPD exacerbation, secondary to above Recent diagnosis of metastatic pulmonary adenocarcinoma based on pleural fluid cytology from a left-sided thoracentesis 03/11/23 History of right apical lung nodule measuring 10 x 7 mm June, Benign essential hypertension Hyperlipidemia GERD Chronic ongoing tobacco dependence Plan: The patient was seen and evaluated Labs and medications reviewed The patient remains quite frail and debilitated We will transition from AirVo high flow oxygen to high flow nasal cannula as tolerated DO NOT RESUSCITATE/DO NOT INTUBATE CODE STATUS Family prefers patient be placed in long-term care facility versus hospice We'll continue to follow for now for now I have personally seen and examined the patient, performed the documentation and the assessment and plan as written. Number of minutes spent on the visit: 10.
--- NOTE | 2023-04-09 14:24 | P.PN ---
Subjective Progress Note Date: 04/09/23 H&P Date: 03/24/23 Chief Complaint: shortness of breath Mister Rhodes is a 73-year-old male well-known to the practice, recently diagnosed with bronchogenic carcinoma of the lung, presented to [facility] emergency room with shortness of breath, and positive for Covid, patient also demonstrating a left sided infiltrate is currently on BiPAP steroid-dependent O2 dependent BiPAP dependent lung disease long-standing smoker essentially quit approximately 2 weeks ago This is 73-year-old gentleman with recently diagnosed adenocarcinoma of lung, admitted with acute COVID-19 infection, hypoxic respiratory failure and multiple other medical issues. Maintained on covid cocktail.Currently maintaining O2 sats in the 90s on airvo flow 60 and Fio2 90. BiPAP at bedside. Reports fatigue, weakness. Afebrile. Pro-calcitonin 0.06. Preliminary blood cultures reporting no growth after 24 hours. Denies chest pain, palpitations. 03/26/2023 maintained on airvo, 60 L FIO2 90%, maintaining O2 sats in the high 80s to low 90s. Mild anxiety. Denies chest pain, palpitations. Afebrile. Preliminary blood cultures reporting no growth after 48 hours. 03/27/2023 Feels better this morning. Received Xanax last night, rested better. Continues on Airvo 60 L, FiO2 90% and maintaining O2 sats in the high 80s to low 90s. Chest x-ray reporting ongoing bilateral pleural personal opacity slough greater than right, possibly slight improvement right base. These Bicarb 39, BUN 18, creatinine 0.48. Hemoglobin 14.8, platelets 168. Preliminary blood cultures reporting no growth after 72 hours. Afebrile. ADDICTION SPECIALIST increased to 18.6. Blood sugars controlled. 03/28/2023 maintained on Airvo 60 L, FiO2 90%, O2 sats fluctuates from high 80s to high 90s. Diet intake poor, consumed 25% of breakfast. Denies nausea, vomiting. Denies abdominal pain. Continues on COvid Cocktail. Afebrile. Preliminary blood cultures reporting no growth after 72 hours. Feels discouraged . 04/07/23 afebrile, continues on cefepime, Decadron. Maintained on airvo 60 L/70% FiO2 maintaining O2 sats in the mid 90s. Diet intake including HS snacks, supplement intake poor, on Marinol. 04/08/2023 continues on airvo 60 L/70% FiO2 maintaining O2 sats in the low 90s. Maintained on antibiotics of cefepime and Covid cocktail. Afebrile. Fatigued. 04/09/2023 . Staff reports mild confusion during the night, resolved this morning. Continues on Marinol, diet intake ranging from 25-50%, usually 0% at breakfast. Borderline hypotension, antihypertensives held. Continues on Airvo 60 L/66% FiO2. Continues on antibiotics, cefepime, diuretics and Covid cocktail, Decadron. Afebrile, WBC 18.4. Hemoglobin 12.8, platelets 143. Sodium 136, potassium 4.8. Bicarb decreased to 39. BUN 49, creatinine 0.4. blood sugars controlled. Objective - Vital Signs Vital signs: Vital Signs Temp 97.7 F 04/09/23 08:00 Pulse 95 04/09/23 08:00 Resp 20 04/09/23 08:00 BP 105/66 04/09/23 08:00 Pulse Ox 94 L 04/09/23 08:00 FiO2 66 04/09/23 08:18 Intake & Output 04/08/23 04/09/23 04/09/23 18:59 06:59 18:59 Intake Total 420 180 Output Total 300 Balance 420 -120 Intake: Oral 420 180 Output: Urine 300 Other: Voiding Method Urinal Urinal Urinal # Voids 1 # Bowel Movements 1 1 1 - Exam General: Patient awake, alert and oriented times 3. wearing AIrvo. HEENT: Normocephalic, PERRL. EOMI. Neck: supple,No JVD. Cardiac: Regular S1 and S2. No S3. No S4. No clicks, rubs. No murmur. Lungs: Increased respiratory effort .Diminished bilateral breath sounds, scattered rhonchi, basilar crackles. Abdomen: Soft, nontender, no guarding. Positive Bowel sounds. Extremes: [No edema, no cyanosis no claudication normal pulses. Skin: [No rash, warm and dry.] Neurologic: CN II - XII grossly intact. - Labs CBC & Chem 7: 04/09/23 07:47 04/09/23 07:47 Labs: Abnormal Lab Results - Last 24 Hours (Table) 04/08/23 04/08/23 04/09/23 Range/Units 16:31 20:29 07:47 WBC 18.4 H (3.8-10.6) k/uL Hgb 12.8 L (13.0-17.5) gm/dL Plt Count 143 L (150-450) k/uL Neutrophils # 16.6 H (1.3-7.7) k/uL Lymphocytes # 0.6 L (1.0-4.8) k/uL Sodium (137-145) mmol/L Chloride (98-107) mmol/L Carbon Dioxide (22-30) mmol/L BUN (9-20) mg/dL Creatinine (0.66-1.25) mg/dL POC Glucose (mg/dL) 175 H 145 H (70-110) mg/dL ALT (4-49) U/L Total Protein (6.3-8.2) g/dL Albumin (3.5-5.0) g/dL 04/09/23 04/09/23 Range/Units 07:47 11:40 WBC (3.8-10.6) k/uL Hgb (13.0-17.5) gm/dL Plt Count (150-450) k/uL Neutrophils # (1.3-7.7) k/uL Lymphocytes # (1.0-4.8) k/uL Sodium 136 L (137-145) mmol/L Chloride 97 L (98-107) mmol/L Carbon Dioxide 39 H (22-30) mmol/L BUN 49 H (9-20) mg/dL Creatinine 0.40 L (0.66-1.25) mg/dL POC Glucose (mg/dL) 113 H (70-110) mg/dL ALT 108 H (4-49) U/L Total Protein 6.2 L (6.3-8.2) g/dL Albumin 2.9 L (3.5-5.0) g/dL Assessment and Plan Assessment: Assessment and Plan (1) Acute respiratory failure with hypoxia Current Visit: Yes Status: Acute Code(s): J96.01 - ACUTE RESPIRATORY FAILURE WITH HYPOXIA SNOMED Code(s): 56723721 (2) COPD (chronic obstructive pulmonary disease) Current Visit: Yes Status: Acute Code(s): J44.9 - CHRONIC OBSTRUCTIVE PULMONARY DISEASE, UNSPECIFIED SNOMED Code(s): 67231813 (3) COVID-19 Current Visit: Yes Status: Acute Code(s): U07.1 - COVID-19 SNOMED Code(s): 704522000 (4) Pneumonia, sputum cultures reporting Enterobacter aerogenes Current Visit: Yes Status: Acute Code(s): J18.9 - PNEUMONIA, UNSPECIFIED ORGANISM SNOMED Code(s): 236833239 (5) Acute and chronic respiratory failure ([id number]) Current Visit: No Status: Acute Code(s): J96.20 - ACUTE AND CHR RESP FAILURE, UNSP W HYPOXIA OR HYPERCAPNIA SNOMED Code(s): 66736351 (6) Adenocarcinoma of lung Current Visit: No Status: Acute Priority: High Code(s): C34.90 - MALIGNANT NEOPLASM OF UNSP PART OF UNSP BRONCHUS OR LUNG SNOMED Code(s): 654881731 (7) Atherosclerosis of abdominal aorta Current Visit: No Status: Acute Code(s): I70.0 - ATHEROSCLEROSIS OF AORTA SNOMED Code(s): 945377424 (8) No code, No CPR, No intubation Plan: Continue on current medication regime ,monitoring and symptomatic treatment.scheduled for a trial of 15 L high flow nasal cannula. Medi Boots to be kept on-high risk for skin integrity breakdown. maintaining cefepime, covid cocktail,bronchodilators. family wishes to pursue rehab.instead of hospice at this time.PT /OT reconsulted , possible select -specialty .Prognosis guarded given multiple complex medical issues. The impression and plan of care has been dictated as directed. : I performed a history and examination of this patient, discussed the same with the dictator. I agree with the dictator's note ,documented as a scribe. Any additional findings or plans will be noted.
[2023-04-09] MEDS: DEXTROSE 5%-0.9% NACL 1,000 ML IV SCH (16:27)
[2023-04-09 16:43] LABS: Glucose,Whole Blood 161 mg/dL (70-110)
[2023-04-09 20:26] LABS: Glucose,Whole Blood 221 mg/dL (70-110)
[2023-04-09] MEDS: ATORVASTATIN 20 MG TAB PO SCH (20:37)
[2023-04-10 05:37] LABS: Glucose,Whole Blood 109 mg/dL (70-110)
[2023-04-10] MEDS: droNABinol 2.5 MG CAP PO SCH (06:37)
[2023-04-10] MEDS: PANTOPRAZOLE 40 MG TABLET PO SCH (06:37)
[2023-04-10] MEDS: FAMOTIDINE 20 MG TAB PO SCH (07:56)
[2023-04-10] MEDS: ASCORBIC ACID 500 MG TAB PO SCH (07:56)
[2023-04-10] MEDS: CEFEPIME 2 GM in SODIUM CHLORIDE 0.9% 100 ML IVPB SCH ×2 (07:56→15:57)
--- NOTE | 2023-04-10 07:56 | XR ---
EXAMINATION TYPE: XR chest 1V portable DATE OF EXAM: 04/10/2023 HISTORY: Shortness of breath. COMPARISON: 04/05/2023 TECHNIQUE: Single view of the chest is submitted. FINDINGS: Demonstrated are scattered senescent parenchymal change. Patchy left perihilar and peripheral infiltrate persists with pleural thickening. Right basilar atele ctasis or additional infiltrate. The heart is stable. Hilar and mediastinal structures are within normal limits. Degenerative changes are seen of the dorsal spine. IMPRESSION: 1. Patchy left perihilar and peripheral infiltrate persists with pleural thickening. Right basilar a telectasis or additional infiltrate.
[2023-04-10] MEDS: guaiFENesin 600 MG TABLET.ER PO SCH ×2 (07:57→19:53)
[2023-04-10] MEDS: ZINC SULFATE 220 MG CAP PO SCH (07:57)
[2023-04-10] MEDS: CHOLECALCIFEROL 25 MCG (1000 IU) TABLET PO SCH (07:57)
[2023-04-10] MEDS: ESCITALOPRAM 10 MG TAB PO SCH (07:57)
[2023-04-10] MEDS: BISOPROLOL-HCTZ 5-6.25 MG 1 EACH TAB PO SCH (07:57)
[2023-04-10] MEDS: DEXAMETHASONE SOD PHOSPHATE 10 MG/ML 1 ML VIAL IVP SCH (07:57)
[2023-04-10] MEDS: POTASSIUM CHLORIDE ER 10 MEQ TAB.ER.PRT PO SCH (07:57)
[2023-04-10] MEDS: HEPARIN SODIUM,PORCINE 5,000 UNIT/ML 1 ML VIAL SQ SCH ×2 (07:57→15:57)
[2023-04-10] MEDS: FUROSEMIDE 40 MG TAB PO SCH (07:57)
[2023-04-10] MEDS: SYMBICORT 160-4.5 MCG INHALER INHALATION SCH ×2 (07:59→21:39)
[2023-04-10] MEDS: ALBUTEROL HFA INHALER INHALATION SCH ×4 (07:59→21:39)
[2023-04-10 11:40] LABS: Glucose,Whole Blood 124 mg/dL (70-110)
--- NOTE | 2023-04-10 12:24 | P.PN ---
Subjective Progress Note Date: 04/10/23 Principal diagnosis: Stage IV NSCLC In f/u today pt in chair, reports SOB is persistent, improved since admit, denies pain Objective - Vital Signs Vital signs: Vital Signs Temp 98.2 F 04/10/23 08:00 Pulse 91 04/10/23 12:04 Resp 20 04/10/23 12:04 BP 86/59 04/10/23 12:04 Pulse Ox 93 L 04/10/23 12:04 FiO2 66 04/09/23 08:18 Intake & Output 04/09/23 04/10/23 04/10/23 18:59 06:59 18:59 Intake Total 360 Output Total 600 575 Balance -240 -575 Intake: Oral 360 Output: Urine 600 575 Other: Voiding Method Urinal Urinal Urinal # Bowel Movements 1 - Constitutional General appearance: Present: cooperative, mild distress, thin - EENT Eyes: Present: anicteric sclerae, EOMI ENT: Present: hard of hearing - Respiratory Details: O2, mildly labored respirations - Integumentary Integumentary: Present: pale - Neurologic Neurologic: Present: CNII-XII intact - Musculoskeletal Musculoskeletal: Present: generalized weakness - Psychiatric Psychiatric: Present: A&O x's 3 - Labs CBC & Chem 7: 04/09/23 07:47 04/09/23 07:47 Labs: Abnormal Lab Results - Last 24 Hours (Table) 04/09/23 04/09/23 04/10/23 Range/Units 16:41 20:25 11:38 POC Glucose (mg/dL) 161 H 221 H 124 H (70-110) mg/dL - Imaging and Cardiology Chest x-ray: report reviewed Assessment and Plan (1) Adenocarcinoma of lung Current Visit: Yes Status: Acute Priority: High Code(s): C34.90 - MALIGNANT NEOPLASM OF UNSP PART OF UNSP BRONCHUS OR LUNG SNOMED Code(s): 172173096 Plan: Stage IV NSCLC -02/2023 pleural fluid on the left + for adenocarcinoma -Since diagnosis pt has not been able to have staging PET. He has been inpt currently for 18 days for covid infection -NGS showed no actionable mutation, PD-L1 was <1%, microsatellite instability was intermediate, TMB low. -Onc recommendations for treatment would be dual IO therapy but, based on pt current PS (2-3), he is not a candidate for treatment at this time -Pending pt progress and recovery from acute resp illness for further recommendations from Oncology -F/U with Medical Onc in 4 weeks, if pt feeling up to it attests: I have seen and examined patient, performed H&P, developed impress ion and plan of care. Discussed with dictator. Agree with documentation, dictated as a scribe
--- NOTE | 2023-04-10 13:36 | P.PN ---
Subjective Progress Note Date: 04/10/23 Principal diagnosis: Acute hypoxic respiratory failure secondary to bacterial pneumonia and COVID-19 infection, possible COVID-19 pneumonia I am seeing this patient in new consultation today 03/24/2023 for suspected left lower lobe pneumonia. Patient is a 73-year-old white male with past medical history significant for recent admission with left lower lobe pneumonia, discharged on March 17. During this admission, the patient was also found to have metastatic adenocarcinoma of the lung based on pleural fluid cytology from a left sided thoracentesis. He also has history of COPD, hypertension, hyperlipidemia, GERD, and ongoing chronic tobacco dependence. Patient is known to have a 10 mm x 7mm right upper lung nodule, originally seen back in June,. His PCP is Dr. Nichols. Chest CT from his most recent admission, March 07, demonstrated a right upper lung bronchus large airway occlusion concerning for obstructive mass. There was also a loculated left pleural effusion with left lung consolidation. The patient was treated with IV antibiotics and discharged home on Augmentin. He was established with an oncologist, and is reportedly going to undergo a PET scan outpatient. Patient returned to the emergency room last night, reporting that he's had ongoing progressively worsening shortness of breath since discharge. He admits an associated nonproductive cough. Denies any fever, chills, myalgias, hemoptysis. Denies any chest pain, palpitations, lower extremity edema, syncope. A chest x-ray done on arrival, showed worsening airspace opacities within the left mid and lower lung zones compared to prior imaging. There was also suspected right lower lung atelectasis, and trace to small bilateral pleural effusions. Patient did test positive for COVID-19, possibly an incidental finding. Patient is currently sitting up in bed, on BiPAP with settings 12/6 and FiO2 of 60%. Appears fairly comfortable. Respiratory rate is high 20s to low 30s and is achieving tidal volumes around 400. CBC on arrival shows leukocytosis with WBC count of 16.9, hemoglobin 14.7, hematocrit 45.4, platelets 150. BMP shows sodium 133, potassium 4.1, chloride 92, serum bi carbonate 39, BUN 17, creatinine 0.43, glucose 99. Currently receiving normal saline at 100 ML's per hour. He was started on empiric Zosyn and azithromycin. Currently afebrile. Also receiving Ventolin HFA, Symbicort inhaler, and IV Decadron. Patient is being monitored closely on the cardiac stepdown unit. Progress note dated 03/25/2023. 73-year-old male admitted on March 24, with a diagnosis of possible left lower lobe pneumonia, and hypoxemic respiratory failure. Currently, the patient is on BiPAP, with settings of 12/6, and 70%. He has no IV fluids running at this time. He did test positive for coronavirus. He does have a history of lung cancer, adenocarcinoma. The only labs today include glucose of 110. Chest x-ray from March 24, shows a small to moderate-sized left pleural effusion, with increased small right pleural effusion. There is also some right lower lung consolidation. Progress note dated 03/26/2023. 73-year-old male admitted on March 24, with a diagnosis of possible left lower lobe pneumonia and hypoxemic respiratory failure. The patient is curren tly on AIRVO, with settings of 60 L/m and an FiO2 of 90%. He's not receiving any IV fluids. A chest x-ray is ordered for March 27. The only lab today with a glucose of 111. Clinically, the patient's doing about the same. Blood cultures are currently negative. Progress note dated 03/27/2023. The patient is seen today in room 368. He continues on AIRVO, with settings of 60 L/m, with an FiO2 of 90%. The chest x-ray done today, shows worsening infiltrates. Clinically, the patient appears reasonably stable. White count 18.6, hemoglobin 10.8, hematocrit 46.2, and platelet count was normal. Sodium 139, potassium 4.6, chlorides 96, CO2 39, BUN 18, and creatinine 0.48. Blood cultures are negative. Chest x-ray shows bilateral pleural/parenchymal opacities, left greater than right. Radiologist feels there may be some improvement. Progress note dated 03/28/2023. This is a 74-year-old male seen in room 368. The patient continues on AIRVO, at 60 L/m, and an FiO2 of 90%. The patient does feel better. He's not receiving any IV fluids. Labs today include only a glucose of 89. As mentioned yesterday, the chest x-ray, as interpreted by the radiologist, suggests some improvement. Progress note dated 03/29/2023. The patient is seen today in room 368. He continues on AIRVO, at 60 L/m, with an FiO2 of 90%. He is getting D5 with normal saline, at 50 mL an hour. She does feel like he is getting better. He looks relatively stable, and his respiratory status, despite being on AIRVO, appears stable. White count is 15.2, with a normal hemoglobin, hematocrit, and platelet count. Sodium 140, potassium 4.4, chlorides 99, CO2 39, BUN 25, and creatinine 0.43. Progress note dated 03/30/2023. The patient is seen today in room 368. He is on AIRVO, with settings of 60 L/m, for flow rate, and an FiO2, that has been dropped down to 80%. The patient continues on saline at 75 mL an hour. Chest x-ray ordered for tomorrow, March 31. No new labs today, other than a glucose of 99. 03/31 2023, the patient remains on high flow oxygen. He remains on 60 L an FiO2 has been done to 70%.the patient remains weak, short of breath, oxygenation. 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 At the same time, the patient was diagnosed having an acute Covid 19 infection.repeat chest x-ray from today shows a stable patchy infiltrates in the left along with small bilateral pleural effusion more so on the left. Meanwhile, the patient was diagnosed having Covid 19 infection on 04/19/2023 and the patient is currently on Decadron. The patient is also was found to have Enterobacter in his sputum and a bacterial pneumonia is suspected. His currently not receiving any antibiotic coverage. He is on Decadron 6 mg IV every 24 hours. He is on Ventolin HFA 4 times a day and Symbicort as maintenance. Rest of the home medications have been all resume. Labs showed a basic on of 12.5, hemoglobin 16.9, BUN is 23 with a creatinine of 0.4. His current pulse ox is 94%. Is getting progressively weak and more debilitated. 04/01 2023, the patient remains on high flow oxygen. This morning, the patient remains on 60 L of 70%. He was provided incentive spirometer. He denies having any worsening shortness of breath. He remains on Decadron 6 mg IV every 24 hours. He did have also patchy infiltrates on the left as discussed earlier and the patient was found to have Enterobacter in his sputum. Currently is afeb rile. Hemodynamically stable. Oral intake is quite limited increase feeling weak and debilitated. Blood work was from yesterday and no recent blood work from today. His renal function is stable. Hemoglobin stable at 13.9. He is afebrile. Pulse ox is in order of 92%. No other significant events over the past 24 hours. Improvement is slow and limited at this point in time. 13 2022, the patient remains on 60 L an FiO2 of 70% on high flow oxygen. The patient is essentially the same. The patient has a congested cough. Is unable to produce significant sputum. I'm very much interested in obtaining another sputum samples for cultures. Meanwhile, based on his earlier Enterobacter grow th in his sputum, the patient is currently on IV cefepime. The patient remains on Decadron 6 mg IV every 24 hours. Repeat chest x-ray from today shows no interval change. There is persistent stable. There is persistent left mid and upper lobe pulmonary infiltrate. There is also small bilateral pleural effusion. The patient is weak. The patient is lethargic. He is arousable and is communicating. Oral intake is quite diminished at this point. He is afebrile. He is hemodynamically stable. On today's evaluation of 04/03/2023, the patient states that he's feeling better. Oxygenation is still impaired and the patient is still requiring high flow oxygen. Currently is on 60 L an FiO2 of 70%. His pulse ox is ranging between 93-95%. He continues to have a congestive cough. IV cefepime was added. The patient remains on steroids. The chest x-ray from yesterday showed a stable consolidation left lung along with a small left-sided pleural effusion. No new labs are available from today. His tolerating diet. He remains on Decadron 6 mg IV every 24 hours. No other significant events overnight. He was encouraged to use incentive spirometer. On today's evaluation of 04/04/2023, the patient remains on Airvo at 60 L an FiO2 of 70%. Is essentially the same setting over the past several days. No major changes in his oxygenation. Continues to produce copious amount of secre tions and his cough is wet and congested and the patient is producing mucus. He does not have another complaints at this point. He is weak. Oral intake is quite diminished. Is on IV cefepime. He remains on Decadron. Unfortunately, he is not making much of progress. I discussed the case with his over the phone and explained to do situation. Current pulse ox is in order of 94-95% on the current high flow oxygen setting. 04/05/2023, the patient is on 60 L an FiO2 of 70%. Pulse ox is in order of 95%. Chest x-ray findings remain stable and I reviewed the chest x-ray from today and there is no significant interval change. There is a patchy pulmonary infiltrate persistent in the left lung. No significant interval change. The patient remains on IV cefepime. The patient is afebrile. On blood work, the patient's serum bicarbs of 45 and the patient will be given 2 doses of Diamox today. Sodiums of 132. The white cell count 13.4, hemoglobin is at 14.1 04/06 2023, no major improvement and the patient remains on high flow oxygen at 60 L an FiO2 of 70%. Continues to be on Decadron. Continues to be on cefepime. Most recent chest x-ray from 04/05/2023 showed stable findings. He is a DNR/DNI CODE STATUS. The patient is seen today 04/07/2023 in follow-up on the selective care unit. He is currently sitting up in bed. He is quite weak and debilitated. He continues to require AirVo high flow oxygen at 60 L and 70% FiO2 with O2 saturation in the 90s. Sputum culture was positive for Enterobacter aerogenes. The cultures revealed no growth. Blood sugar 135. He remains on Symbicort, albuterol, Decadron and vitamin supplements. Heparin for DVT prophylaxis. Antibiotics in the form of cefepime. Family is considering comfort care/hospice. The patient is seen today 04/08/2023 in follow-up on the selective care unit. He is awake. Quite weak and debilitated. He remains on AirVo high flow oxygen at 60 L and 70% FiO2. Sputum culture was positive for Enterobacter aerogenes. Blood cultures revealed no growth. Glucose 113. He is continued on Symbicort, albuterol, vitamin supplements. She remains on Decadron. Antibiotics in the form of cefepime. Remains on diuretics. Currently in a negative balance. Patient was seen today on 04/10/2023, patient is basically about the same, not much of a change in noted over the last 2 days except he is now on 15 L high flow nasal cannula and off airvo. Patient tells me that his feeling better today. Chest x-ray continues to show extensive infiltrate in the left lung. But relatively improved compared to his admission chest x-ray. WBC count remains elevated 18.4 hemoglobin is 12.8 basic metabolic profile is normal sputum has been positive for Enterobacter and the patient is still on cefepime Objective - Vital Signs Vital signs: Vital Signs Temp 98.2 F 04/10/23 08:00 Pulse 91 04/10/23 12:04 Resp 20 04/10/23 12:04 BP 86/59 04/10/23 12:04 Pulse Ox 93 L 04/10/23 12:04 FiO2 66 04/09/23 08:18 Intake & Output 04/09/23 04/10/23 04/10/23 18:59 06:59 18:59 Intake Total 360 Output Total 600 575 Balance -240 -575 Intake: Oral 360 Output: Urine 600 575 Other: Voiding Method Urinal Urinal Urinal # Bowel Movements 1 - Exam GENERAL EXAM: Alert, weak, 73-year-old male, remains on 15 L high flow nasal cannula. HEAD: Normocephalic. EYES: Normal reaction of pupils, equal size. NOSE: Clear with pink turbinates. THROAT: No erythema or exudates. NECK: No masses, no JVD. CHEST: No chest wall deformity. LUNGS: Equal air entry with crackles in the bilateral bases right greater than left CVS: S1 and S2 normal with no audible murmur, regular rhythm. ABDOMEN: No hepatosplenomegaly, normal bowel sounds, no guarding or rigidity. SPINE: No scoliosis or deformity SKIN: No rashes CENTRAL NERVOUS SYSTEM: No focal deficits, tone is normal in all 4 extremities. EXTREMITIES: There is no peripheral edema. No clubbing, no cyanosis. Camille pheral pulses are intact. - Labs CBC & Chem 7: 04/09/23 07:47 04/09/23 07:47 Labs: Abnormal Lab Results - Last 24 Hours (Table) 04/09/23 04/09/23 04/10/23 Range/Units 16:41 20:25 11:38 POC Glucose (mg/dL) 161 H 221 H 124 H (70-110) mg/dL Assessment and Plan Assessment: Impression: Acute hypoxemic respiratory failure secondary to recurrent/persistent left lower lobe pneumonia., Suspect a bacterial pneumonia/Enterobacter pneumonia and possibly underlying COVID-19 infection/pneumonia Leukocytosis, secondary to above Acute COPD exacerbation, secondary to above Recent diagnosis of metastatic pulmonary adenocarcinoma based on pleural fluid cytology from a left-sided thoracentesis 03/11/23 History of right apical lung nodule measuring 10 x 7 mm June, Benign essential hypertension Hyperlipidemia GERD Chronic ongoing tobacco dependence Recommendation: Not quite ready for discharge planning Continue high flow nasal cannula and titrate accordingly Continue cefepime Continue COVID-19 cocktail DO NOT RESUSCITATE/DO NOT INTUBATE CODE STATUS Discussed his condition with his admitting physician. We'll continue to follow for now for now Time with Patient: Less than 30
--- NOTE | 2023-04-10 14:52 | P.PN ---
Subjective Progress Note Date: 04/10/23 H&P Date: 03/24/23 Chief Complaint: shortness of breath Mister Rhodes is a 73-year-old male well-known to the practice, recently diagnosed with bronchogenic carcinoma of the lung, presented to [facility] emergency room with shortness of breath, and positive for Covid, patient also demonstrating a left sided infiltrate is currently on BiPAP steroid-dependent O2 dependent BiPAP dependent lung disease long-standing smoker essentially quit approximately 2 weeks ago This is 73-year-old gentleman with recently diagnosed adenocarcinoma of lung, admitted with acute COVID-19 infection, hypoxic respiratory failure and multiple other medical issues. Maintained on covid cocktail.Currently maintaining O2 sats in the 90s on airvo flow 60 and Fio2 90. BiPAP at bedside. Reports fatigue, weakness. Afebrile. Pro-calcitonin 0.06. Preliminary blood cultures reporting no growth after 24 hours. Denies chest pain, palpitations. 03/26/2023 maintained on airvo, 60 L FIO2 90%, maintaining O2 sats in the high 80s to low 90s. Mild anxiety. Denies chest pain, palpitations. Afebrile. Preliminary blood cultures reporting no growth after 48 hours. 03/27/2023 Feels better this morning. Received Xanax last night, rested better. Continues on Airvo 60 L, FiO2 90% and maintaining O2 sats in the high 80s to low 90s. Chest x-ray reporting ongoing bilateral pleural personal opacity slough greater than right, possibly slight improvement right base. These Bicarb 39, BUN 18, creatinine 0.48. Hemoglobin 14.8, platelets 168. Preliminary blood cultures reporting no growth after 72 hours. Afebrile. 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 Blood sugars controlled. 03/28/2023 maintained on Airvo 60 L, FiO2 90%, O2 sats fluctuates from high 80s to high 90s. Diet intake poor, consumed 25% of breakfast. Denies nausea, vomiting. Denies abdominal pain. Continues on COvid Cocktail. Afebrile. Preliminary blood cultures reporting no growth after 72 hours. Feels discouraged . 04/07/23 afebrile, continues on cefepime, Decadron. Maintained on airvo 60 L/70% FiO2 maintaining O2 sats in the mid 90s. Diet intake including HS snacks, supplement intake poor, on Marinol. 04/08/2023 continues on airvo 60 L/70% FiO2 maintaining O2 sats in the low 90s. Maintained on antibiotics of cefepime and Covid cocktail. Afebrile. Fatigued. 04/09/2023 . Staff reports mild confusion during the night, resolved this morning. Continues on Marinol, diet intake ranging from 25-50%, usually 0% at breakfast. Borderline hypotension, antihypertensives held. Continues on Airvo 60 L/66% FiO2. Continues on antibiotics, cefepime, diuretics and Covid cocktail, Decadron. Afebrile, WBC 18.4. Hemoglobin 12.8, platelets 143. Sodium 136, potassium 4.8. Bicarb decreased to 39. BUN 49, creatinine 0.4. blood sugars controlled. 04/10/2023 sitting up in chair, remains off of airvo, continues on 15 L high flow nasal cannula, maintaining O2 sats in the low 90s. Borderline hypotension. Chest x-ray reported improving patchy left perihilar and peripheral infiltrate persists with pleural thickening, right basilar atelectasis or additional infiltrate. Maintained on cefepime, afebrile, WBC 18.4. Renal function stable. Objective - Vital Signs Vital signs: Vital Signs Temp 98.2 F 04/10/23 08:00 Pulse 109 H 04/10/23 08:12 Resp 21 04/10/23 08:12 BP 104/64 04/10/23 08:00 Pulse Ox 91 L 04/10/23 08:00 FiO2 66 04/09/23 08:18 Intake & Output 04/09/23 04/10/23 04/10/23 18:59 06:59 18:59 Intake Total 360 Output Total 600 575 Balance -240 -575 Intake: Oral 360 Output: Urine 600 575 Other: Voiding Method Urinal Urinal Urinal # Bowel Movements 1 - Exam General: Patient awake, alert and oriented times 3, sitting up in chair. On high flow nasal cannula HEENT: Normocephalic, PERRL. EOMI. Neck: supple,No JVD. Cardiac: Regular S1 and S2. No S3. No S4. No clicks, rubs. No murmur. Lungs: Equal air entry Diminished bilateral breath sounds, less rhonchi, basilar crackles. Abdomen: Soft, nontender, no guarding. Positive Bowel sounds. Extremes: [No edema, no cyanosis no claudication normal pulses. Skin: [No rash, warm and dry.] Neurologic: CN II - XII grossly intact. - Labs CBC & Chem 7: 04/09/23 07:47 04/09/23 07:47 Labs: Abnormal Lab Results - Last 24 Hours (Table) 04/09/23 04/09/23 04/09/23 Range/Units 11:40 16:41 20:25 POC Glucose (mg/dL) 113 H 161 H 221 H (70-110) mg/dL Assessment and Plan Assessment: Assessment and Plan (1) Acute respiratory failure with hypoxia Current Visit: Yes Status: Acute Code(s): J96.01 - ACUTE RESPIRATORY FAILURE WITH HYPOXIA SNOMED Code(s): 18380915 (2) COPD (chronic obstructive pulmonary disease) Current Visit: Yes Status: Acute Code(s): J44.9 - CHRONIC OBSTRUCTIVE PULMONARY DISEASE, UNSPECIFIED SNOMED Code(s): 83575137 (3) COVID-19 Current Visit: Yes Status: Acute Code(s): U07.1 - COVID-19 SNOMED Code(s): 364280920 (4) Pneumonia, sputum cultures reporting Enterobacter aerogenes Current Visit: Yes Status: Acute Code(s): J18.9 - PNEUMONIA, UNSPECIFIED ORGANISM SNOMED Code(s): 908559149 (5) Acute and chronic respiratory failure ([id number]) Current Visit: No Status: Acute Code(s): J96.20 - ACUTE AND CHR RESP FAIL URE, UNSP W HYPOXIA OR HYPERCAPNIA SNOMED Code(s): 23922539 (6) Adenocarcinoma of lung Current Visit: No Status: Acute Priority: High Code(s): C34.90 - MALIGNANT NEOPLASM OF UNSP PART OF UNSP BRONCHUS OR LUNG SNOMED Code(s): 338126086 (7) Atherosclerosis of abdominal aorta Current Visit: No Status: Acute Code(s): I70.0 - ATHEROSCLEROSIS OF AORTA SNOMED Code(s): 388359406 (8) No code, No CPR, No intubation Plan: Continue on current medication regime ,monitoring and symptomatic treatmen t. Maintaining on 15 L high flow nasal cannula with titration as per pulmonary. Continue cefepime, covid cocktail,bronchodilators. family wishes to pursue rehab.instead of hospice at this time. PT. Prognosis guarded given multiple complex medical issues. The impression and plan of care has been dictated as directed. : I performed a history and examination of this patient, discussed the same with the dictator. I agree with the dictator's note ,documented as a scribe. Any additional findings or plans will be noted.
[2023-04-10 15:11] LABS: HCT 40.4 % (39.0-53.0); HGB 12.6 gm/dL (13.0-17.5); Hypochromasia Slight; MCH 28.7 pg (25.0-35.0); MCHC 31.1 g/dL (31.0-37.0); MCV 92.3 fL (80.0-100.0); Mean Platelet Volume 9.8; Platelet Count 161 k/uL (150-450); RBC 4.38 m/uL (4.30-5.90); RDW 14.5 % (11.5-15.5); WBC 22.3 k/uL (3.8-10.6)
[2023-04-10] MEDS: DEXTROSE 5%-0.9% NACL 1,000 ML IV SCH (16:12)
[2023-04-10 16:49] LABS: Glucose,Whole Blood 173 mg/dL (70-110)
[2023-04-10] MEDS: ATORVASTATIN 20 MG TAB PO SCH (19:53)
[2023-04-10 19:55] LABS: Glucose,Whole Blood 160 mg/dL (70-110)
[2023-04-11] MEDS: HEPARIN SODIUM,PORCINE 5,000 UNIT/ML 1 ML VIAL SQ SCH ×4 (00:51→23:11)
[2023-04-11] MEDS: CEFEPIME 2 GM in SODIUM CHLORIDE 0.9% 100 ML IVPB SCH ×4 (00:51→23:11)
[2023-04-11 06:07] LABS: Glucose,Whole Blood 104 mg/dL (70-110)
[2023-04-11] MEDS: droNABinol 2.5 MG CAP PO SCH (06:25)
[2023-04-11] MEDS: PANTOPRAZOLE 40 MG TABLET PO SCH (06:25)
[2023-04-11] MEDS: SYMBICORT 160-4.5 MCG INHALER INHALATION SCH ×2 (08:12→19:38)
[2023-04-11] MEDS: ALBUTEROL HFA INHALER INHALATION SCH ×4 (08:12→19:38)
[2023-04-11] MEDS: DEXAMETHASONE SOD PHOSPHATE 10 MG/ML 1 ML VIAL IVP SCH (08:26)
[2023-04-11] MEDS: ASCORBIC ACID 500 MG TAB PO SCH (08:27)
[2023-04-11] MEDS: ZINC SULFATE 220 MG CAP PO SCH (08:27)
[2023-04-11] MEDS: CHOLECALCIFEROL 25 MCG (1000 IU) TABLET PO SCH (08:27)
[2023-04-11] MEDS: POTASSIUM CHLORIDE ER 10 MEQ TAB.ER.PRT PO SCH (08:28)
[2023-04-11] MEDS: FUROSEMIDE 40 MG TAB PO SCH (08:28)
[2023-04-11] MEDS: ESCITALOPRAM 10 MG TAB PO SCH (08:28)
[2023-04-11] MEDS: ASPIRIN 81 MG PO SCH (08:28)
[2023-04-11] MEDS: BISOPROLOL-HCTZ 5-6.25 MG 1 EACH TAB PO SCH (08:29)
[2023-04-11] MEDS: FAMOTIDINE 20 MG TAB PO SCH (08:30)
[2023-04-11] MEDS: guaiFENesin 600 MG TABLET.ER PO SCH ×2 (08:36→19:46)
[2023-04-11 09:57] LABS: HGB 11.9 gm/dL (13.0-17.5); Hypochromasia Slight; MCH 29.4 pg (25.0-35.0); MCHC 32.1 g/dL (31.0-37.0); MCV 91.5 fL (80.0-100.0); Mean Platelet Volume 10.9; Platelet Count 162 k/uL (150-450); RBC 4.05 m/uL (4.30-5.90); RDW 14.6 % (11.5-15.5); WBC 26.8 k/uL (3.8-10.6)
[2023-04-11 10:14] LABS: African American GFR (CKD) >90 (>60 ml/min/1.73 sqM); Blood Urea Nitrogen 60 mg/dL (9-20); Chloride 98 mmol/L (98-107); Glucose 89 mg/dL (74-99); Non-African American GFR(CKD) >90 (>60 ml/min/1.73 sqM); Potassium 4.7 mmol/L (3.5-5.1)
[2023-04-11 10:30] LABS: Anion Gap 0 mmol/L; Calcium 9.3 mg/dL (8.4-10.2); Carbon Dioxide 40 mmol/L (22-30); Sodium 138 mmol/L (137-145)
--- NOTE | 2023-04-11 11:11 | P.CRDCN ---
History of Present Illness History of present illness: HISTORY OF PRESENT ILLNESS: This is a 73-year-old male with a past medical history significant for COPD, hypertension, hyperlipidemia, metastatic pulmonary adenocarcinoma, and nicotine dependence. Patient does not follow with a front office attendant. We have been asked to see the patient in consultation for abnormal EKG with ST elevation. Patient examined at the bedside. Patient is admitted to the hospital secondary to pneumonia and acute respiratory failure. Patient is also positive for Covid. Patient had any EKG completed yesterday evening revealing ST elevation. Patient's primary physician, Dr. Nichols, was contacted and a routine consult to cardiology was placed. However, cardiology was not notified of this consultation until this morning. Patient denies having any chest pain or pressure. He reports mild shortness of breath. He remains on high flow nasal cannula to maintain oxygen saturations greater than 92%. * EKG reveals sinus mechanism with diffuse ST elevation * Chest xray patchy left perihilar and peripheral infiltrate persist with pleural thickening. Right basilar atelectasis or additional infiltrate * Laboratory data: WBC 26.8. Hemoglobin 11.9. Platelet count 162. Sodium 137. Potassium 4.7. BUN 60. Creatinine 0.49. Troponin negative 1. * Current home cardiac medications include Ziac 56.25 mg daily, simvastatin 40 mg at night, amlodipine-Benzapril 10-20mg daily, lisinopril 20 mg daily REVIEW OF SYSTEMS: At the time of my exam: CONSTITUTIONAL: Denies fever or chills. HEENT: Denies blurred vision, vision changes, or eye pain. Denies hemoptysis CARDIOVASCULAR: Denies chest pain. Denies orthopnea. Denies PND. Denies palpitations RESPIRATORY: Reports shortness of breath. GASTROINTESTINAL: Denies abdominal pain. Denies nausea or vomiting. HEMATOLOGIC: Denies bleeding disorders. GENITOURINARY: Denies any blood in urine. SKIN: Denies pruitis. Denies rash. PHYSICAL EXAM: VITAL SIGNS: Reviewed. GENERAL: Well-developed in no acute distress. HEENT: Head is normocephalic. Pupils are equal, round. Sclerae anicteric. Mucous membranes of the mouth are moist. Neck supple. No JVD or thyromegaly LUNGS: Respirations even and unlabored. Lungs with bilateral rhonchi. HEART: Regular rate and rhythm. S1 and S2 heard. ABDOMEN: Soft. Nondistended. Nontender. EXTREMITIES: Normal range of motion. No clubbing or cyanosis. Peripheral pulses intact. No lower extremity edema NEUROLOGIC: Awake and alert. Oriented x 3. ASSESSMENT: Shortness of breath Acute hypoxic respiratory failure Pneumonia Acute Covid 19 infection Leukocytosis EKG with diffuse ST elevation, possible myocarditis Hypertension, currently hypotensive Hyperlipidemia Nicotine dependence PLAN: Add aspirin 81 mg daily Trend troponins Continue statin therapy Antihypertensive medications are on hold as patient has been hypotensive with systolic in the 80s. Obtain 2-D echo to assess cardiac structure and function Continue with conservative management at this time Further recommendations pending patient's course Nurse practitioner note has been reviewed by physician. Signing provider agrees with the documented findings, assessment, and plan of care. Past Medical History Past Medical History: COPD, GERD/Reflux, Hyperlipidemia, Hypertension Additional Past Medical History / Comment(s): COPD, diverticulosis,tobacco use syndrome History of Any Multi-Drug Resistant Organisms: None Reported Past Surgical History: Orthopedic Surgery, Tonsillectomy Additional Past Surgical History / Comment(s): right ankle surgery, COLONOSCOPY Past Anesthesia/Blood Transfusion Reactions: No Reported Reaction Past Psychological History: No Psychological Hx Reported Smoking Status: Former smoker Past Alcohol Use History: None Reported Additional Past Alcohol Use History / Comment(s): Smoking 1 ppd since age 17, now quit. Past Drug Use History: None Reported - Past Family History Mother Family Medical History: Coronary Artery Disease (CAD) Father Family Medical History: Cancer Additional Family Medical History / Comment(s): lymphoma Medications and Allergies Home Medications Medication Instructions Recorded Confirmed Type Bisoprolol-Hctz 5-6.25 mg [Ziac 1 tab PO DAILY 08/24/16 03/23/23 History 5-6.25 MG] Simvastatin [Zocor] 40 mg PO HS 08/24/16 03/23/23 History Ubidecarenone [Co Q-10] 10 mg PO DAILY@1200 08/24/16 03/23/23 History amLODIPine BESYLATE/BENAZEPRIL 1 cap PO DAILY 08/24/16 03/23/23 History [amLODIPine BESYLATE/BENAZEPRIL 10-20 MG] Fluticasone/Umeclidin/Vilanter 1 puff INHALATION RT-DAILY 07/25/20 03/23/23 History [Trelegy Ellipta 100-62.5-25] Omeprazole Magnesium [PriLOSEC OTC] 20 mg PO BID 07/25/20 03/23/23 History Vit C/E/Zn/Coppr/Lutein/Zeaxan 1 tab PO DAILY@1200 07/25/20 03/23/23 History [Preservision Areds 2 Softgel] Albuterol Inhaler [Ventolin Hfa 1 - 2 puff INHALATION RT-Q6H PRN 03/07/23 03/23/23 History Inhaler] Albuterol Nebulized [Ventolin 2.5 mg INHALATION RT-TID 03/07/23 03/23/23 History Nebulized] Fluocinonide 0.05% Solution 1 applic TOPICAL HS PRN 03/07/23 03/23/23 History Ketoconazole 2% Shampoo [Nizoral] 1 applic TOPICAL DAILY PRN 03/07/23 03/23/23 History Krill/Om-3/Dha/Epa/Phospho/Ast 1 cap PO DAILY@1200 03/07/23 03/23/23 History [Krill Oil 500 mg Softgel] Turmeric Root Extract [Turmeric] 500 mg PO HS 03/07/23 03/23/23 History lisinopriL [Zestril] 20 mg PO DAILY 30 Days #30 tab 03/14/23 03/23/23 Rx ALPRAZolam [Xanax] 0.25 mg PO Q6H PRN 03/23/23 03/23/23 History Allergies Allergy/AdvReac Type Severity Reaction Status Date / Time No Known Allergies Allergy Verified 03/23/23 19:02 Physical Exam Vitals: Vital Signs Temp Pulse Pulse Resp BP BP Pulse Ox 04/11/23 08:13 92 L 04/11/23 08:00 97.7 F 62 22 82/55 99 04/11/23 04:00 86 22 88/63 94 L 04/11/23 01:54 24 04/11/23 00:00 77 24 94/60 95 04/10/23 21:43 97 04/10/23 19:53 80 22 99/61 96 04/10/23 16:14 89 19 88/52 96 04/10/23 12:04 91 20 86/59 93 L Intake and Output 04/10/23 04/11/23 04/11/23 22:59 06:59 14:59 Intake Total 118 Output Total 200 Balance 118 -200 Intake: Oral 118 Output: Urine 200 Other: Voiding Method Urinal Urinal Results 04/11/23 08:14 04/11/23 08:14 Cardiac Enzymes 04/10/23 04/11/23 Range/Units 21:06 08:14 Troponin I <0.012 <0.012 (0.000-0.034) ng/mL CBC 04/10/23 04/11/23 Range/Units 14:21 08:14 WBC 22.3 H 26.8 H (3.8-10.6) k/uL RBC 4.38 4.05 L (4.30-5.90) m/uL Hgb 12.6 L 11.9 L (13.0-17.5) gm/dL Hct 40.4 37.0 L (39.0-53.0) % Plt Count 161 162 (150-450) k/uL Comprehensive Metabolic Panel 04/11/23 Range/Units 08:14 Sodium 138 (137-145) mmol/L Potassium 4.7 (3.5-5.1) mmol/L Chloride 98 (98-107) mmol/L Carbon Dioxide 40 H (22-30) mmol/L BUN 60 H (9-20) mg/dL Creatinine 0.49 L (0.66-1.25) mg/dL Glucose 89 (74-99) mg/dL Calcium 9.3 (8.4-10.2) mg/dL Current Medications Generic Name Dose Route Start Last Admin Trade Name Freq PRN Reason Stop Dose Admin Acetaminophen 650 mg 03/23/23 19:15 Acetaminophen Tab 325 Mg Tab PO Q6HR PRN Mild Pain or Fever > 100.5 Albuterol Sulfate 2 puff 03/31/23 08:00 04/11/23 08:12 Albuterol Hfa Inhaler INHALATION 2 puff RT-QID MANA Administration Alprazolam 0.25 mg 03/23/23 21:03 03/26/23 18:16 Alprazolam 0.25 Mg Tab PO 0.25 mg Q6H PRN Administration Anxiety Ascorbic Acid 1,000 mg 03/24/23 10:15 04/11/23 08:27 Ascorbic Acid 500 Mg Tab PO 1,000 mg DAILY MANA Administration Aspirin 81 mg 04/11/23 09:00 04/11/23 08:28 Aspirin 81 Mg PO 81 mg DAILY MANA Administration Atorvastatin Calcium 20 mg 03/24/23 21:00 04/10/23 19:53 Atorvastatin 20 Mg Tab PO 20 mg HS MANA Administration Betamethasone Dipropionate 1 applic 03/24/23 12:36 Betamethasone Dipropionate 0.05% Cream 15 Gm Tube TOPICAL HS PRN FLARE UPS Bisoprolol Fumarate 1 each 03/24/23 09:00 04/11/23 08:29 Bisoprolol-Hctz 5-6.25 Mg 1 Each Tab PO 1 each DAILY MANA Administration Budesonide/Formoterol Fumarate 2 puff 03/24/23 08:00 04/11/23 08:12 Symbicort 160-4.5 Mcg Inhaler INHALATION 2 puff RT-BID MANA Administration Cholecalciferol 25 mcg 03/24/23 10:15 04/11/23 08:27 Cholecalciferol 25 Mcg (1000 Iu) Tablet PO 25 mcg DAILY MANA Administration Dexamethasone Sodium Phosphate 6 mg 03/24/23 09:00 04/11/23 08:26 Dexamethasone Sod Phosphate 10 Mg/Ml 1 Ml Vial IVP 6 mg DAILY MANA Administration Dronabinol 2.5 mg 04/11/23 07:30 04/11/23 06:25 Dronabinol 2.5 Mg Cap PO 2.5 mg AC-BRKFST MANA Administration Escitalopram Oxalate 10 mg 03/28/23 12:45 04/11/23 08:28 Escitalopram 10 Mg Tab PO 10 mg DAILY MANA Administration Famotidine 20 mg 03/24/23 09:00 04/11/23 08:30 Famotidine 20 Mg Tab PO 20 mg DAILY MANA Administration Furosemide 40 mg 04/05/23 10:45 04/11/23 08:28 Furosemide 40 Mg Tab PO 40 mg DAILY MANA Administration Guaifenesin 600 mg 03/29/23 21:00 04/11/23 08:36 Guaifenesin 600 Mg Tablet.Er PO 600 mg Q12HR MANA Administration Heparin Sodium (Porcine) 5,000 unit 03/24/23 00:00 04/11/23 08:26 Heparin Sodium,Porcine 5,000 Unit/Ml 1 Ml Vial SQ 5,000 unit Q8HR MANA Administration Dextrose/Sodium Chloride 1,000 mls @ 20 mls/hr 03/29/23 11:45 04/10/23 16:12 Dextrose 5%-Ns Iv Soln IV 20 mls/hr .Q24H MANA Administration Cefepime HCl 2 gm/ Sodium 100 mls @ 25 mls/hr 04/05/23 16:00 04/11/23 08:27 Chloride IVPB 25 mls/hr Q8HR MANA Administration Protocol Ketoconazole 1 applic 03/24/23 12:36 Ketoconazole 2% Shampoo 1 Applic/Ml TOPICAL DAILY PRN FLARE UPS Miscellaneous Information 1 each 03/23/23 19:03 Pneumonia Protocol Utilized 1 Each Misc PO ONCE PRN Per Protocol Naloxone HCl 0.2 mg 03/23/23 19:15 Naloxone 0.4 Mg/Ml 1 Ml Vial IV Q2M PRN Opioid Reversal Pantoprazole Sodium 40 mg 03/25/23 07:30 04/11/23 06:25 Pantoprazole 40 Mg Tablet PO 40 mg AC-BRKFST MANA Administration Potassium Chloride 10 meq 04/06/23 09:00 04/11/23 08:28 Potassium Chloride Er 10 Meq Tab.Er.Prt PO 10 meq DAILY MANA Administration Zinc Sulfate 220 mg 03/24/23 10:15 04/11/23 08:27 Zinc Sulfate 220 Mg Cap PO 220 mg DAILY MANA Administration Intake and Output 04/10/23 04/11/23 04/11/23 22:59 06:59 14:59 Intake Total 118 Output Total 200 Balance 118 -200 Intake: Oral 118 Output: Urine 200 Other: Voiding Method Urinal Urinal 04/11/23 08:14 04/11/23 08:14
[2023-04-11 11:38] LABS: Glucose,Whole Blood 152 mg/dL (70-110)
--- NOTE | 2023-04-11 11:57 | CA ---
Transthoracic Echo Report Name: Thaddeus Rhodes Age: 73 Gender: M : 1950 Exam Date: 04/11/2023 09:00 Exam Location: [place] [facility] Ht (in): 69 Wt (lb): 164 Ordering Physician: Amy Patiño Attending/Referring Phys: [id number], [employer] Consult[employer] Danielito Bradshaw Procedure CPT: Indications: LV function, diffuse ST elevation Cardiac Hx: Technical Quality: Very technically difficult study Contrast 1: Total Dose (mL): Contrast 2: Total Dose (mL): MEASUREMENTS (Male / Female) Normal Values 2D ECHO LV Diastolic Diameter PLAX 3.1 cm 4.2 - 5.9 / 3.9 - 5.3 cm LV Systolic Diameter PLAX 2.2 cm IVS Diastolic Thickness 1.1 cm 0.6 - 1.0 / 0.6 - 0.9 cm LVPW Diastolic Thickness 0.9 cm 0.6 - 1.0 / 0.6 - 0.9 cm LV Relative Wall Thickness 0.6 RV Internal Dim ED PLAX 2.8 cm LVOT Diameter 2.2 cm Aortic Root Diameter 3.2 cm LA Systolic Diameter LX 2.8 cm 3.0 - 4.0 / 2.7 - 3.8 cm LV Diastolic Volume MOD 4C 40.1 cm??? LV Systolic Volume MOD 4C 9.6 cm??? LV Ejection Fraction MOD 4C 76.1 % LV Cardiac Index MOD 4C 1535.6 cm???/min???m??? LV Diastolic Length 4C 7.8 cm LV Systolic Length 4C 5.9 cm LA Volume 47.9 cm??? 18 - 58 / 22 - 52 cm??? DOPPLER AV Peak Velocity 271.0 cm/s AV Peak Gradient 29.4 mmHg LVOT Peak Velocity 149.1 cm/s LVOT Peak Gradient 8.9 mmHg LVOT Velocity Time Integral 35.3 cm LVOT Stroke Volume 138.5 cm??? LVOT Stroke Volume Index 73.0 ml/m??? LVOT Cardiac Index 6964.6 cm???/min???m??? AV Area Cont Eq pk 2.2 cm??? MV Peak Velocity 94.6 cm/s MV Peak Gradient 3.6 mmHg MV Mean Velocity 47.6 cm/s MV Mean Gradient 1.1 mmHg MV Velocity Time Integral 25.2 cm MR Peak Velocity 233.7 cm/s MR Peak Gradient 21.9 mmHg Mitral E Point Velocity 62.6 cm/s Mitral A Point Velocity 99.4 cm/s Mitral E to A Ratio 0.6 MV Deceleration Time 327.3 ms MV E' Velocity 6.1 cm/s Mitral E to MV E' Ratio 10.3 TR Peak Velocity 254.5 cm/s TR Peak Gradient 25.9 mmHg Right Ventricular Systolic Press 30.9 mmHg PV Peak Velocity 94.4 cm/s PV Peak Gradient 3.6 mmHg FINDINGS Left Ventricle Normal LV size and wal thickness. Left ventricular ejection fraction is estimated at 50-55 %. Right Ventricle Normal right ventricular size. Right Atrium Normal right atrial size. Left Atrium Normal left atrial size. Mitral Valve Structurally normal mitral valve. Aortic Valve Mild to moderate AV calcification. No aortic regurgitation. Tricuspid Valve Tricuspid valve not well visualized. No tricuspid regurgitation. Pulmonic Valve Pulmonic valve not well visualized. No pulmonic regurgitation. Pericardium Not well visualized. Aorta CONCLUSIONS Technically difficult study Left ventricular ejection fraction 5055% Mild aortic sclerosis without significant aortic stenosis No mitral regurgitation No pericardial effusion Previewed by: Dr. Juan Manuel Pearl DO (Electronically Signed) Final Date: 11 April 2023 11:56
[2023-04-11] MEDS: MIDODRINE 5 MG TAB PO SCH ×2 (12:35→17:00)
--- NOTE | 2023-04-11 13:58 | P.PN ---
Subjective Progress Note Date: 04/11/23 Principal diagnosis: Acute hypoxic respiratory failure secondary to bacterial pneumonia and COVID-19 infection, possible COVID-19 pneumonia I am seeing this patient in new consultation today 03/24/2023 for suspected left lower lobe pneumonia. Patient is a 73-year-old white male with past medical history significant for recent admission with left lower lobe pneumonia, discharged on March 17. During this admission, the patient was also found to have metastatic adenocarcinoma of the lung based on pleural fluid cytology from a left sided thoracentesis. He also has history of COPD, hypertension, hyperlipidemia, GERD, and ongoing chronic tobacco dependence. Patient is known to have a 10 mm x 7mm right upper lung nodule, originally seen back in June,. His PCP is Dr. Nichols. Chest CT from his most recent admission, March 07, demonstrated a right upper lung bronchus large airway occlusion concerning for obstructive mass. There was also a loculated left pleural effusion with left lung consolidation. The patient was treated with IV antibiotics and discharged home on Augmentin. He was established with an oncologist, and is reportedly going to undergo a PET scan outpatient. Patient returned to the emergency room last night, reporting that he's had ongoing progressively worsening shortness of breath since discharge. He admits an associated nonproductive cough. Denies any fever, chills, myalgias, hemoptysis. Denies any chest pain, palpitations, lower extremity edema, syncope. A chest x-ray done on arrival, showed worsening airspace opacities within the left mid and lower lung zones compared to prior imaging. There was also suspected right lower lung atelectasis, and trace to small bilateral pleural effusions. Patient did test positive for COVID-19, possibly an incidental finding. Patient is currently sitting up in bed, on BiPAP with settings 12/6 and FiO2 of 60%. Appears fairly comfortable. Respiratory rate is high 20s to low 30s and is achieving tidal volumes around 400. CBC on arrival shows leukocytosis with WBC count of 16.9, hemoglobin 14.7, hematocrit 45.4, platelets 150. BMP shows sodium 133, potassium 4.1, chloride 92, serum bi carbonate 39, BUN 17, creatinine 0.43, glucose 99. Currently receiving normal saline at 100 ML's per hour. He was started on empiric Zosyn and azithromycin. Currently afebrile. Also receiving Ventolin HFA, Symbicort inhaler, and IV Decadron. Patient is being monitored closely on the cardiac stepdown unit. Progress note dated 03/25/2023. 73-year-old male admitted on March 24, with a diagnosis of possible left lower lobe pneumonia, and hypoxemic respiratory failure. Currently, the patient is on BiPAP, with settings of 12/6, and 70%. He has no IV fluids running at this time. He did test positive for coronavirus. He does have a history of lung cancer, adenocarcinoma. The only labs today include glucose of 110. Chest x-ray from March 24, shows a small to moderate-sized left pleural effusion, with increased small right pleural effusion. There is also some right lower lung consolidation. Progress note dated 03/26/2023. 73-year-old male admitted on March 24, with a diagnosis of possible left lower lobe pneumonia and hypoxemic respiratory failure. The patient is curren tly on AIRVO, with settings of 60 L/m and an FiO2 of 90%. He's not receiving any IV fluids. A chest x-ray is ordered for March 27. The only lab today with a glucose of 111. Clinically, the patient's doing about the same. Blood cultures are currently negative. Progress note dated 03/27/2023. The patient is seen today in room 368. He continues on AIRVO, with settings of 60 L/m, with an FiO2 of 90%. The chest x-ray done today, shows worsening infiltrates. Clinically, the patient appears reasonably stable. White count 18.6, hemoglobin 10.8, hematocrit 46.2, and platelet count was normal. Sodium 139, potassium 4.6, chlorides 96, CO2 39, BUN 18, and creatinine 0.48. Blood cultures are negative. Chest x-ray shows bilateral pleural/parenchymal opacities, left greater than right. Radiologist feels there may be some improvement. Progress note dated 03/28/2023. This is a 74-year-old male seen in room 368. The patient continues on AIRVO, at 60 L/m, and an FiO2 of 90%. The patient does feel better. He's not receiving any IV fluids. Labs today include only a glucose of 89. As mentioned yesterday, the chest x-ray, as interpreted by the radiologist, suggests some improvement. Progress note dated 03/29/2023. The patient is seen today in room 368. He continues on AIRVO, at 60 L/m, with an FiO2 of 90%. He is getting D5 with normal saline, at 50 mL an hour. She does feel like he is getting better. He looks relatively stable, and his respiratory status, despite being on AIRVO, appears stable. White count is 15.2, with a normal hemoglobin, hematocrit, and platelet count. Sodium 140, potassium 4.4, chlorides 99, CO2 39, BUN 25, and creatinine 0.43. Progress note dated 03/30/2023. The patient is seen today in room 368. He is on AIRVO, with settings of 60 L/m, for flow rate, and an FiO2, that has been dropped down to 80%. The patient continues on saline at 75 mL an hour. Chest x-ray ordered for tomorrow, March 31. No new labs today, other than a glucose of 99. 03/31 2023, the patient remains on high flow oxygen. He remains on 60 L an FiO2 has been done to 70%.the patient remains weak, short of breath, oxygenation. 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 At the same time, the patient was diagnosed having an acute Covid 19 infection.repeat chest x-ray from today shows a stable patchy infiltrates in the left along with small bilateral pleural effusion more so on the left. Meanwhile, the patient was diagnosed having Covid 19 infection on 04/19/2023 and the patient is currently on Decadron. The patient is also was found to have Enterobacter in his sputum and a bacterial pneumonia is suspected. His currently not receiving any antibiotic coverage. He is on Decadron 6 mg IV every 24 hours. He is on Ventolin HFA 4 times a day and Symbicort as maintenance. Rest of the home medications have been all resume. Labs showed a basic on of 12.5, hemoglobin 16.9, BUN is 23 with a creatinine of 0.4. His current pulse ox is 94%. Is getting progressively weak and more debilitated. 04/01 2023, the patient remains on high flow oxygen. This morning, the patient remains on 60 L of 70%. He was provided incentive spirometer. He denies having any worsening shortness of breath. He remains on Decadron 6 mg IV every 24 hours. He did have also patchy infiltrates on the left as discussed earlier and the patient was found to have Enterobacter in his sputum. Currently is afeb rile. Hemodynamically stable. Oral intake is quite limited increase feeling weak and debilitated. Blood work was from yesterday and no recent blood work from today. His renal function is stable. Hemoglobin stable at 13.9. He is afebrile. Pulse ox is in order of 92%. No other significant events over the past 24 hours. Improvement is slow and limited at this point in time. 13 2022, the patient remains on 60 L an FiO2 of 70% on high flow oxygen. The patient is essentially the same. The patient has a congested cough. Is unable to produce significant sputum. I'm very much interested in obtaining another sputum samples for cultures. Meanwhile, based on his earlier Enterobacter grow th in his sputum, the patient is currently on IV cefepime. The patient remains on Decadron 6 mg IV every 24 hours. Repeat chest x-ray from today shows no interval change. There is persistent stable. There is persistent left mid and upper lobe pulmonary infiltrate. There is also small bilateral pleural effusion. The patient is weak. The patient is lethargic. He is arousable and is communicating. Oral intake is quite diminished at this point. He is afebrile. He is hemodynamically stable. On today's evaluation of 04/03/2023, the patient states that he's feeling better. Oxygenation is still impaired and the patient is still requiring high flow oxygen. Currently is on 60 L an FiO2 of 70%. His pulse ox is ranging between 93-95%. He continues to have a congestive cough. IV cefepime was added. The patient remains on steroids. The chest x-ray from yesterday showed a stable consolidation left lung along with a small left-sided pleural effusion. No new labs are available from today. His tolerating diet. He remains on Decadron 6 mg IV every 24 hours. No other significant events overnight. He was encouraged to use incentive spirometer. On today's evaluation of 04/04/2023, the patient remains on Airvo at 60 L an FiO2 of 70%. Is essentially the same setting over the past several days. No major changes in his oxygenation. Continues to produce copious amount of secre tions and his cough is wet and congested and the patient is producing mucus. He does not have another complaints at this point. He is weak. Oral intake is quite diminished. Is on IV cefepime. He remains on Decadron. Unfortunately, he is not making much of progress. I discussed the case with his over the phone and explained to do situation. Current pulse ox is in order of 94-95% on the current high flow oxygen setting. 04/05/2023, the patient is on 60 L an FiO2 of 70%. Pulse ox is in order of 95%. Chest x-ray findings remain stable and I reviewed the chest x-ray from today and there is no significant interval change. There is a patchy pulmonary infiltrate persistent in the left lung. No significant interval change. The patient remains on IV cefepime. The patient is afebrile. On blood work, the patient's serum bicarbs of 45 and the patient will be given 2 doses of Diamox today. Sodiums of 132. The white cell count 13.4, hemoglobin is at 14.1 04/06 2023, no major improvement and the patient remains on high flow oxygen at 60 L an FiO2 of 70%. Continues to be on Decadron. Continues to be on cefepime. Most recent chest x-ray from 04/05/2023 showed stable findings. He is a DNR/DNI CODE STATUS. The patient is seen today 04/07/2023 in follow-up on the selective care unit. He is currently sitting up in bed. He is quite weak and debilitated. He continues to require AirVo high flow oxygen at 60 L and 70% FiO2 with O2 saturation in the 90s. Sputum culture was positive for Enterobacter aerogenes. The cultures revealed no growth. Blood sugar 135. He remains on Symbicort, albuterol, Decadron and vitamin supplements. Heparin for DVT prophylaxis. Antibiotics in the form of cefepime. Family is considering comfort care/hospice. The patient is seen today 04/08/2023 in follow-up on the selective care unit. He is awake. Quite weak and debilitated. He remains on AirVo high flow oxygen at 60 L and 70% FiO2. Sputum culture was positive for Enterobacter aerogenes. Blood cultures revealed no growth. Glucose 113. He is continued on Symbicort, albuterol, vitamin supplements. She remains on Decadron. Antibiotics in the form of cefepime. Remains on diuretics. Currently in a negative balance. Patient was seen today on 04/10/2023, patient is basically about the same, not much of a change in noted over the last 2 days except he is now on 15 L high flow nasal cannula and off airvo. Patient tells me that his feeling better today. Chest x-ray continues to show extensive infiltrate in the left lung. But relatively improved compared to his admission chest x-ray. WBC count remains elevated 18.4 hemoglobin is 12.8 basic metabolic profile is normal sputum has been positive for Enterobacter and the patient is still on cefepime Reevaluated today on 04/11/2023, patient remains on high flow nasal cannula however he is down to 13 L/m, maintaining O2 saturation of 92%. Clinically the patient is feeling fine and feeling better, does not seem to be in any distress, on physical examination continues to have some fine crackles at the left base. Patient is being seen by cardiology for abnormal EKG and ST elevation, his WBC count is 26.8 hemoglobin 11.9 electrolytes are normal renal profile is normal troponin is normal. Objective - Vital Signs Vital signs: Vital Signs Temp 98.2 F 04/11/23 12:00 Pulse 96 04/11/23 12:00 Resp 22 04/11/23 12:00 BP 89/58 04/11/23 12:00 Pulse Ox 90 L 04/11/23 12:00 FiO2 66 04/09/23 08:18 Intake & Output 04/10/23 04/11/23 04/11/23 18:59 06:59 18:59 Intake Total 238 Output Total 200 Balance 238 -200 Weight 74.389 kg Intake: Oral 238 Output: Urine 200 Other: Voiding Method Urinal Urinal # Bowel Movements 1 - Exam GENERAL EXAM: Alert, weak, 73-year-old male, remains on 13 L high flow nasal cannula. HEAD: Normocephalic. EYES: Normal reaction of pupils, equal size. NOSE: Clear with pink turbinates. THROAT: No erythema or exudates. NECK: No masses, no JVD. CHEST: No chest wall deformity. LUNGS: Fine crackles at the left base CVS: S1 and S2 normal with no audible murmur, regular rhythm. ABDOMEN: No hepatosplenomegaly, normal bowel sounds, no guarding or rigidity. SPINE: No scoliosis or deformity SKIN: No rashes CENTRAL NERVOUS SYSTEM: No focal deficits, tone is normal in all 4 extremities. EXTREMITIES: There is no peripheral edema. No clubbing, no cyanosis. Peripheral pulses are intact. - Labs CBC & Chem 7: 04/11/23 08:14 04/11/23 08:14 Labs: Abnormal Lab Results - Last 24 Hours (Table) 04/10/23 04/10/23 04/10/23 Range/Units 14:21 16:47 19:52 WBC 22.3 H (3.8-10.6) k/uL RBC (4.30-5.90) m/uL Hgb 12.6 L (13.0-17.5) gm/dL Hct (39.0-53.0) % Carbon Dioxide (22-30) mmol/L BUN (9-20) mg/dL Creatinine (0.66-1.25) mg/dL POC Glucose (mg/dL) 173 H 160 H (70-110) mg/dL 04/11/23 04/11/23 04/11/23 Range/Units 08:14 08:14 11:37 WBC 26.8 H (3.8-10.6) k/uL RBC 4.05 L (4.30-5.90) m/uL Hgb 11.9 L (13.0-17.5) gm/dL Hct 37.0 L (39.0-53.0) % Carbon Dioxide 40 H (22-30) mmol/L BUN 60 H (9-20) mg/dL Creatinine 0.49 L (0.66-1.25) mg/dL POC Glucose (mg/dL) 152 H (70-110) mg/dL Assessment and Plan Assessment: Impression: Acute hypoxemic respiratory failure secondary to recurrent/persistent left lower lobe pneumonia., Suspect a bacterial pneumonia/Enterobacter pneumonia and possibly underlying COVID-19 infection/pneumonia Leukocytosis, secondary to above Acute COPD exacerbation, secondary to above Recent diagnosis of metastatic pulmonary adenocarcinoma based on pleural fluid cytology from a left-sided thoracentesis 03/11/23 History of right apical lung nodule measuring 10 x 7 mm June, Benign essential hypertension Hyperlipidemia GERD Chronic ongoing tobacco dependence Recommendation: Continue high flow nasal cannula and titrate accordingly Continue cefepime Continue COVID-19 cocktail DO NOT RESUSCITATE/DO NOT INTUBATE CODE STATUS We'll continue to follow for now for now Time with Patient: Less than 30
--- NOTE | 2023-04-11 15:14 | P.PN ---
Subjective Progress Note Date: 04/11/23 Principal diagnosis: COVID, lung adenocarcinoma Patient comfortably in bedside chair. Reports improvement in breathing. He has been transitioned to high flow nasal cannula at 13 L, SPO2 92%. Patient remains afebrile. Continues on cefepime Objective - Vital Signs Vital signs: Vital Signs Temp 98.2 F 04/11/23 12:00 Pulse 96 04/11/23 14:00 Resp 22 04/11/23 14:00 BP 89/58 04/11/23 12:00 Pulse Ox 90 L 04/11/23 12:00 FiO2 66 04/09/23 08:18 Intake & Output 04/10/23 04/11/23 04/11/23 18:59 06:59 18:59 Intake Total 238 Output Total 200 Balance 238 -200 Weight 74.389 kg Intake: Oral 238 Output: Urine 200 Other: Voiding Method Urinal Urinal # Bowel Movements 1 - Constitutional General appearance: Present: no acute distress - EENT Eyes: Present: anicteric sclerae, EOMI ENT: Present: hearing grossly normal - Respiratory Details: breathing mildly labored - Cardiovascular Details: skin warm and dry - Integumentary Integumentary: Absent: jaundiced, pale - Musculoskeletal Musculoskeletal: Present: generalized weakness - Psychiatric Psychiatric: Present: A&O x's 3, appropriate affect, intact judgment & insight - Labs CBC & Chem 7: 04/11/23 08:14 04/11/23 08:14 Labs: Abnormal Lab Results - Last 24 Hours (Table) 04/10/23 04/10/23 04/10/23 Range/Units 14:21 16:47 19:52 WBC 22.3 H (3.8-10.6) k/uL RBC (4.30-5.90) m/uL Hgb 12.6 L (13.0-17.5) gm/dL Hct (39.0-53.0) % Carbon Dioxide (22-30) mmol/L BUN (9-20) mg/dL Creatinine (0.66-1.25) mg/dL POC Glucose (mg/dL) 173 H 160 H (70-110) mg/dL 04/11/23 04/11/23 04/11/23 Range/Units 08:14 08:14 11:37 WBC 26.8 H (3.8-10.6) k/uL RBC 4.05 L (4.30-5.90) m/uL Hgb 11.9 L (13.0-17.5) gm/dL Hct 37.0 L (39.0-53.0) % Carbon Dioxide 40 H (22-30) mmol/L BUN 60 H (9-20) mg/dL Creatinine 0.49 L (0.66-1.25) mg/dL POC Glucose (mg/dL) 152 H (70-110) mg/dL Assessment and Plan (1) COVID-19 Current Visit: Yes Status: Acute Priority: High Code(s): U07.1 - COVID-19 SNOMED Code(s): 353578806 (2) Adenocarcinoma of lung Current Visit: Yes Status: Acute Priority: High Code(s): C34.90 - MALIGN ANT NEOPLASM OF UNSP PART OF UNSP BRONCHUS OR LUNG SNOMED Code(s): 189135473 (3) Pneumonia Current Visit: Yes Status: Acute Priority: High Code(s): J18.9 - PNEUMONIA, UNSPECIFIED ORGANISM SNOMED Code(s): 934643679 Plan: Stage IV NSCLC -02/2023 pleural fluid on the left + for adenocarcinoma -Since diagnosis pt has not been able to have staging PET. He has been inpt currently for 18 days for covid infection/bacterial pneumonia -NGS showed no actionable mutation, PD-L1 was <1%, microsatellite instability was intermediate, TMB low. -Onc recommendations for treatment would be dual IO therapy but, based on pt current PS (2-3), he is not a candidate for treatment at this time -Pending pt progress and recovery from acute resp illness for further recommendations from Oncology -F/U with Medical Onc in 4 weeks to further assess patients status and discuss possible treatment options at that time Pt verbalized understanding and is agreeable with plan
[2023-04-11] MEDS: DEXTROSE 5%-0.9% NACL 1,000 ML IV SCH (16:00)
--- NOTE | 2023-04-11 17:35 | P.PN ---
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 Maintained on covid cocktail.Currently maintaining O2 sats in the 90s on airvo flow 60 and Fio2 90. BiPAP at bedside. Reports fatigue, weakness. Afebrile. Pro-calcitonin 0.06. Preliminary blood cultures reporting no growth after 24 hours. Denies chest pain, palpitations. 03/26/2023 maintained on airvo, 60 L FIO2 90%, maintaining O2 sats in the high 80s to low 90s. Mild anxiety. Denies chest pain, palpitations. Afebrile. Preliminary blood cultures reporting no growth after 48 hours. 03/27/2023 Feels better this morning. Received Xanax last night, rested better. Continues on Airvo 60 L, FiO2 90% and maintaining O2 sats in the high 80s to low 90s. Chest x-ray reporting ongoing bilateral pleural personal opacity slough greater than right, possibly slight improvement right base. These Bicarb 39, BUN 18, creatinine 0.48. Hemoglobin 14.8, platelets 168. Preliminary blood cultures reporting no growth after 72 hours. Afebrile. ROOFER METAL increased to 18.6. Blood sugars controlled. 03/28/2023 maintained on Airvo 60 L, FiO2 90%, O2 sats fluctuates from high 80s to high 90s. Diet intake poor, consumed 25% of breakfast. Denies nausea, vomiting. Denies abdominal pain. Continues on COvid Cocktail. Afebrile. Preliminary blood cultures reporting no growth after 72 hours. Feels discouraged . 04/07/23 afebrile, continues on cefepime, Decadron. Maintained on airvo 60 L/70% FiO2 maintaining O2 sats in the mid 90s. Diet intake including HS snacks, supplement intake poor, on Marinol. 04/08/2023 continues on airvo 60 L/70% FiO2 maintaining O2 sats in the low 90s. Maintained on antibiotics of cefepime and Covid cocktail. Afebrile. Fatigued. 04/09/2023 . Staff reports mild confusion during the night, resolved this morning. Continues on Marinol, diet intake ranging from 25-50%, usually 0% at breakfast. Borderline hypotension, antihypertensives held. Continues on Airvo 60 L/66% FiO2. Continues on antibiotics, cefepime, diuretics and Covid cocktail, Decadron. Afebrile, WBC 18.4. Hemoglobin 12.8, platelets 143. Sodium 136, potassium 4.8. Bicarb decreased to 39. BUN 49, creatinine 0.4. blood sugars controlled. 04/10/2023 sitting up in chair, remains off of airvo, continues on 15 L high flow nasal cannula, maintaining O2 sats in the low 90s. Borderline hypotension. Chest x-ray reported improving patchy left perihilar and peripheral infiltrate persists with pleural thickening, right basilar atelectasis or additional infiltrate. Maintained on cefepime, afebrile, WBC 18.4. Renal function stable. 04/11/2023 sitting up in chair, she decreased to 13 L high flow nasal cannula maintaining O2 sats in the low 90s. More alert today, Marinol dose decreased yesterday. Significant weakness, barely able to stand without assistance. Continues on Cefepime, Decadron, WBC 26, afebrile. Evaluated by cardiology related to abnormal EKG/ ST elevation, asymptomatic. Denies chest pain, palpitations. 2-D echo ordered. Objective - Vital Signs Vital signs: Vital Signs Temp 98.2 F 04/11/23 12:00 Pulse 88 04/11/23 16:00 Resp 22 04/11/23 16:00 BP 93/58 04/11/23 16:00 Pulse Ox 93 L 04/11/23 16:00 FiO2 66 04/09/23 08:18 Intake & Output 04/10/23 04/11/23 04/11/23 18:59 06:59 18:59 Intake Total 238 Output Total 200 525 Balance 238 -200 -525 Weight 74.389 kg Intake: Oral 238 Output: Urine 200 525 Other: Voiding Method Urinal Urinal # Bowel Movements 1 - Exam General: Patient awake, alert and oriented times 3, sitting up in chair. On high flow nasal cannula HEENT: Normocephalic, PERRL. EOMI. Neck: supple,No JVD. Cardiac: Regular S1 and S2. No S3. No S4. No clicks, rubs. No murmur. Lungs: Equal air entry Diminished bilateral breath sounds, less scattered rhonchi, fine basilar crackles, greatest in the left. Abdomen: Soft, nontender, no guarding. Positive Bowel sounds. Extremes: [No edema, no cyanosis no claudication normal pulses. Skin: [No rash, warm and dry.] Neurologic: CN II - XII grossly intact. - Labs CBC & Chem 7: 04/11/23 08:14 04/11/23 08:14 Labs: Abnormal Lab Results - Last 24 Hours (Table) 04/10/23 04/11/23 04/11/23 Range/Units 19:52 08:14 08:14 WBC 26.8 H (3.8-10.6) k/uL RBC 4.05 L (4.30-5.90) m/uL Hgb 11.9 L (13.0-17.5) gm/dL Hct 37.0 L (39.0-53.0) % Carbon Dioxide 40 H (22-30) mmol/L BUN 60 H (9-20) mg/dL Creatinine 0.49 L (0.66-1.25) mg/dL POC Glucose (mg/dL) 160 H (70-110) mg/dL 04/11/23 Range/Units 11:37 WBC (3.8-10.6) k/uL RBC (4.30-5.90) m/uL Hgb (13.0-17.5) gm/dL Hct (39.0-53.0) % Carbon Dioxide (22-30) mmol/L BUN (9-20) mg/dL Creatinine (0.66-1.25) mg/dL POC Glucose (mg/dL) 152 H (70-110) mg/dL Assessment and Plan Assessment: Assessment and Plan (1) Acute respiratory failure with hypoxia Current Visit: Yes Status: Acute Code(s): J96.01 - ACUTE RESPIRATORY FAILURE WITH HYPOXIA SNOMED Code(s): 46836695 (2) COPD (chronic obstructive pulmonary disease) Current Visit: Yes Status: Acute Code(s): J44.9 - CHRONIC OBSTRUCTIVE PULMONARY DISEASE, UNSPECIFIED SNOMED Code(s): 34082559 (3) COVID-19 Current Visit: Yes Status: Acute Code(s): U07.1 - COVID-19 SNOMED Code(s): 564044500 (4) Pneumonia, sputum cultures reporting Enterobacter aerogenes Current Visit: Yes Status: Acute Code(s): J18.9 - PNEUMONIA, UNSPECIFIED ORGANISM SNOMED Code(s): 532798922 (5) Acute and chronic respiratory failure ([id number]) Current Visit: No Status: Acute Code(s): J96.20 - ACUTE AND CHR RESP FAILURE, UNSP W HYPOXIA OR HYPERCAPNIA SNOMED Code(s): 40761946 (6) Adenocarcinoma of lung Current Visit: No Status: Acute Priority: High Code(s): C34.90 - MALIGNANT NEOPLASM OF UNSP PART OF UNSP BRONCHUS OR LUNG SNOMED Code(s): 206796192 (7) Atherosclerosis of abdominal aorta Current Visit: No Status: Acute Code(s): I70.0 - ATHEROSCLEROSIS OF AORTA SNOMED Code(s): 252439909 (8) No code, No CPR, No intubation Plan: Continue on current medication regime ,monitoring and symptomatic treatment. Maintain cefepime, covid cocktail,bronchodilators. 2-D echo pending.PT. close monitoring of hemoglobin, blood reported in stool last night, hemoglobin 11.9/platelets 162- repeat CBC in a.m. Prognosis guarded given multiple complex medical issues. The impression and plan of care has been dictated as directed. : I performed a history and examination of this patient, discussed the same with the dictator. I agree with the dictator's note ,documented as a scribe. Any additional findings or plans will be noted.
[2023-04-11] MEDS: ATORVASTATIN 20 MG TAB PO SCH (19:46)
[2023-04-11 20:21] LABS: Glucose,Whole Blood 143 mg/dL (70-110)
[2023-04-12] MEDS: droNABinol 2.5 MG CAP PO SCH (06:11)
[2023-04-12] MEDS: MIDODRINE 5 MG TAB PO SCH ×2 (06:11→17:00)
[2023-04-12] MEDS: PANTOPRAZOLE 40 MG TABLET PO SCH (06:11)
[2023-04-12 06:15] LABS: Glucose,Whole Blood 123 mg/dL (70-110)
[2023-04-12] MEDS: CEFEPIME 2 GM in SODIUM CHLORIDE 0.9% 100 ML IVPB SCH ×2 (08:04→16:10)
[2023-04-12] MEDS: DEXAMETHASONE SOD PHOSPHATE 10 MG/ML 1 ML VIAL IVP SCH (08:04)
[2023-04-12] MEDS: CHOLECALCIFEROL 25 MCG (1000 IU) TABLET PO SCH (08:05)
[2023-04-12] MEDS: BISOPROLOL-HCTZ 5-6.25 MG 1 EACH TAB PO SCH (08:05)
[2023-04-12] MEDS: ASCORBIC ACID 500 MG TAB PO SCH (08:05)
[2023-04-12] MEDS: ZINC SULFATE 220 MG CAP PO SCH (08:05)
[2023-04-12] MEDS: FUROSEMIDE 40 MG TAB PO SCH (08:05)
[2023-04-12] MEDS: ESCITALOPRAM 10 MG TAB PO SCH (08:05)
[2023-04-12] MEDS: HEPARIN SODIUM,PORCINE 5,000 UNIT/ML 1 ML VIAL SQ SCH ×2 (08:05→17:00)
[2023-04-12] MEDS: guaiFENesin 600 MG TABLET.ER PO SCH ×2 (08:05→21:48)
[2023-04-12] MEDS: POTASSIUM CHLORIDE ER 10 MEQ TAB.ER.PRT PO SCH (08:05)
[2023-04-12] MEDS: ASPIRIN 81 MG PO SCH (08:05)
[2023-04-12] MEDS: FAMOTIDINE 20 MG TAB PO SCH (08:05)
[2023-04-12 08:30] LABS: African American GFR (CKD) >90 (>60 ml/min/1.73 sqM); Anion Gap -2 mmol/L; Blood Urea Nitrogen 64 mg/dL (9-20); Calcium 9.1 mg/dL (8.4-10.2); Carbon Dioxide 40 mmol/L (22-30); Chloride 100 mmol/L (98-107); Glucose 90 mg/dL (74-99); Non-African American GFR(CKD) >90 (>60 ml/min/1.73 sqM); Potassium 4.7 mmol/L (3.5-5.1); Sodium 138 mmol/L (137-145)
[2023-04-12] MEDS: ALBUTEROL HFA INHALER INHALATION SCH ×4 (08:41→20:32)
[2023-04-12] MEDS: SYMBICORT 160-4.5 MCG INHALER INHALATION SCH ×2 (08:41→20:33)
[2023-04-12 08:48] LABS: Basophils % (A) 0 %; Eosinophils % (A) 0 %; HCT 36.3 % (39.0-53.0); HGB 11.8 gm/dL (13.0-17.5); Lymphocytes # (A) 0.4 k/uL (1.0-4.8); Lymphocytes % (A) 2 %; MCH 29.7 pg (25.0-35.0); MCHC 32.4 g/dL (31.0-37.0); MCV 91.6 fL (80.0-100.0); Mean Platelet Volume 9.4; Monocytes # (A) 0.8 k/uL (0-1.0); Monocytes % (A) 3 %; Neutrophils # (A) 26.9 k/uL (1.3-7.7); Neutrophils % (A) 95 %; Platelet Count 153 k/uL (150-450); RBC 3.97 m/uL (4.30-5.90); RDW 14.5 % (11.5-15.5); WBC 28.3 k/uL (3.8-10.6)
--- NOTE | 2023-04-12 09:22 | P.PN ---
Subjective 04/12/2023: She reevaluated today for his ongoing COVID-19 pneumonia and acute COPD. He also has non-small cell lung carcinoma, stage IV. He is very slowly improving. He is currently at 94% on high flow nasal cannula 11 L/m. This is down from 12-15 yesterday. He remains afebrile. Heart rate rest rate control. He denies any recent stooling. Sedation elevated BUN 64 and a creatinine of 0.53. WBC was 20.3 with hemoglobin 11.8. Pulmonology and medical oncology notes reviewed. Cardiology had seen him for elevated ST segments on telemetry and then an EKG. They had asked for a recommended continuing current therapy. He has had some red blood per rectum. This is felt to be due to hemorrhoids. It has not recurred. He remains DNR, no intubation. Objective - Vital Signs Vital signs: Vital Signs Temp 97.7 F 04/12/23 07:51 Pulse 80 04/12/23 07:51 Resp 20 04/12/23 07:51 BP 91/61 04/12/23 07:51 Pulse Ox 94 L 04/12/23 08:44 FiO2 66 04/09/23 08:18 Intake & Output 04/11/23 04/12/23 04/12/23 18:59 06:59 18:59 Intake Total 240 Output Total 525 650 Balance -285 -650 Intake: Oral 240 Output: Urine 525 650 Other: Voiding Method Urinal # Voids 1 - Exam General: Patient awake, alert and oriented times 3. wearing nasal cannula current settings are 11 L/m. appears improved. Currently in bed Neck: supple,No JVD. Cardiac: Regular S1 and S2. No S3. No S4. No clicks, rubs. No murmur. Lungs: .Diminished bilateral breath sounds, scattered minimal rhonchi noted. Abdomen: Soft, nontender, no guarding. Bowel sounds present and normoactive in all 4 quadrants. Extremes trace edema no cyanosis no claudication normal pulses, many boots are not in place Skin: No rash, warm and dry. Psych: He is awake alert and oriented 3, Neurologic: No lateralizing deficits. CN II - XII grossly intact. - Labs CBC & Chem 7: 04/12/23 07:42 04/12/23 07:42 Labs: Abnormal Lab Results - Last 24 Hours (Table) 04/11/23 04/11/23 04/11/23 Range/Units 08:14 08:14 11:37 WBC 26.8 H (3.8-10.6) k/uL RBC 4.05 L (4.30-5.90) m/uL Hgb 11.9 L (13.0-17.5) gm/dL Hct 37.0 L (39.0-53.0) % Carbon Dioxide 40 H (22-30) mmol/L BUN 60 H (9-20) mg/dL Creatinine 0.49 L (0.66-1.25) mg/dL POC Glucose (mg/dL) 152 H (70-110) mg/dL 04/11/23 04/12/23 04/12/23 Range/Units 20:19 06:14 07:42 WBC 28.3 H (3.8-10.6) k/uL RBC 3.97 L (4.30-5.90) m/uL Hgb 11.8 L (13.0-17.5) gm/dL Hct 36.3 L (39.0-53.0) % Carbon Dioxide (22-30) mmol/L BUN (9-20) mg/dL Creatinine (0.66-1.25) mg/dL POC Glucose (mg/dL) 143 H 123 H (70-110) mg/dL 04/12/23 Range/Units 07:42 WBC (3.8-10.6) k/uL RBC (4.30-5.90) m/uL Hgb (13.0-17.5) gm/dL Hct (39.0-53.0) % Carbon Dioxide 40 H (22-30) mmol/L BUN 64 H (9-20) mg/dL Creatinine 0.53 L (0.66-1.25) mg/dL POC Glucose (mg/dL) (70-110) mg/dL Assessment and Plan (1) Acute respiratory failure with hypoxia Current Visit: Yes Status: Acute Code(s): J96.01 - ACUTE RESPIRATORY FAILURE WITH HYPOXIA SNOMED Code(s): 93758724 (2) Adenocarcinoma of lung Current Visit: Yes Status: Acute Priority: High Code(s): C34.90 - MALIGNANT NEOPLASM OF UNSP PART OF UNSP BRONCHUS OR LUNG SNOMED Code(s): 718614615 (3) COVID-19 Current Visit: Yes Status: Acute Priority: High Code(s): U07.1 - COVID-19 SNOMED Code(s): 429646679 (4) Acute and chronic respiratory failure ([id number]) Current Visit: No Status: Acute Code(s): J96.20 - ACUTE AND CHR RESP FAILURE, UNSP W HYPOXIA OR HYPERCAPNIA SNOMED Code(s): 37214171 (5) Acute exacerbation of chronic obstructive pulmonary disease Current Visit: No Status: Acute Priority: High Code(s): J44.1 - CHRONIC O BSTRUCTIVE PULMONARY DISEASE W (ACUTE) EXACERBATION SNOMED Code(s): 117942934 (6) Essential (primary) hypertension Current Visit: No Status: Acute Code(s): I10 - ESSENTIAL (PRIMARY) HYPERTENSION SNOMED Code(s): 46384263 (7) Tobacco dependence Current Visit: No Status: Acute Code(s): F17.200 - NICOTINE DEPENDENCE, UNSPECIFIED, UNCOMPLICATED SNOMED Code(s): 30372181 (8) Depression with anxiety Current Visit: Yes Status: Acute Code(s): F41.8 - OTHER SPECIFIED ANXIETY DISORDERS SNOMED Code(s): 337348184 Plan: He is very slowly improving. Heme oncology recommending no treatment at this time. 9 cardiology recommended conservative therapy. Pulmonology's notes were reviewed. He'll continue on his current treatments. We will encourage physical therapy. Since he's not had a bowel movement several days, we'll add some stool softeners Repeat labs in a.m. due to the elevated BUN and added small amount of IV fluid. He'll be reevaluated next 24 hours.
[2023-04-12 09:26] LABS: RBC Morphology Normal
[2023-04-12] MEDS: DOCUSATE 100 MG CAP PO SCH ×2 (09:48→21:49)
--- NOTE | 2023-04-12 10:21 | P.PN ---
Subjective HISTORY OF PRESENT ILLNESS: This is a 73-year-old male with a past medical history significant for COPD, hypertension, hyperlipidemia, metastatic pulmonary adenocarcinoma, and nicotine dependence. 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 We have been asked to see the patient in consultation for abnormal EKG with ST elevation. Patient examined at the bedside. Patient is admitted to the hospital secondary to pneumonia and acute respiratory failure. Patient is also positive for Covid. Patient had any EKG completed yesterday evening revealing ST elevation. Patient's primary physician, Dr. Nichols, was contacted and a routine consult to cardiology was placed. However, cardiology was not notified of this consu ltation until this morning. Patient denies having any chest pain or pressure. He reports mild shortness of breath. He remains on high flow nasal cannula to maintain oxygen saturations greater than 92%. * EKG reveals sinus mechanism with diffuse ST elevation * Chest xray patchy left perihilar and peripheral infiltrate persist with pleural thickening. Right basilar atelectasis or additional infiltrate * Laboratory data: WBC 26.8. Hemoglobin 11.9. Platelet count 162. Sodium 137. Potassium 4.7. BUN 60. Creatinine 0.49. Troponin negative 1. * Current home cardiac medications include Ziac 56.25 mg daily, simvastatin 40 mg at night, amlodipine-Benzapril 10-20mg daily, lisinopril 20 mg daily 04/12/2023 Patient examined this morning at the bedside. Patient denies chest pain or pressure. He currently denies shortness of breath. However, he remains on high flow nasal cannula at 12 L. Echocardiogram completed revealing ejection fraction 50-55% with mild aortic stenosis. Blood pressure remains borderline. Most recent blood pressure 91/61. PHYSICAL EXAM: VITAL SIGNS: Reviewed. GENERAL: Well-developed in no acute distress. HEENT: Head is normocephalic. Pupils are equal, round. Sclerae anicteric. Mucous membranes of the mouth are moist. Neck supple. No JVD or thyromegaly LUNGS: Respirations even and unlabored. Lungs with bilateral rhonchi. HEART: Regular rate and rhythm. S1 and S2 heard. ABDOMEN: Soft. Nondistended. Nontender. EXTREMITIES: Normal range of motion. No clubbing or cyanosis. Peripheral pulses intact. No lower extremity edema NEUROLOGIC: Awake and alert. Oriented x 3. ASSESSMENT: Shortness of breath Acute hypoxic respiratory failure Pneumonia Acute Covid 19 infection Leukocytosis EKG with diffuse ST elevation, possible myocarditis Hypertension, currently hypotensive Hyperlipidemia Nicotine dependence PLAN: Continue current cardiac medications Antihypertensive medications are on hold as patient has been hypotensive with systolic in the 80s. Continue with conservative management at this time Further recommendations pending patient's course Nurse practitioner note has been reviewed by physician. Signing provider agrees with the documented findings, assessment, and plan of care. Objective - Vital Signs Vital signs: Vital Signs Temp 97.7 F 04/12/23 07:51 Pulse 80 04/12/23 08:00 Resp 20 04/12/23 08:00 BP 91/61 04/12/23 07:51 Pulse Ox 94 L 04/12/23 08:44 FiO2 66 04/09/23 08:18 Intake & Output 04/11/23 04/12/23 04/12/23 18:59 06:59 18:59 Intake Total 240 Output Total 525 650 Balance -285 -650 Intake: Oral 240 Output: Urine 525 650 Other: Voiding Method Urinal Urinal # Voids 1 - Labs CBC & Chem 7: 04/12/23 07:42 04/12/23 07:42 Labs: Abnormal Lab Results - Last 24 Hours (Table) 04/11/23 04/11/23 04/11/23 Range/Units 08:14 11:37 20:19 WBC (3.8-10.6) k/uL RBC (4.30-5.90) m/uL Hgb (13.0-17.5) gm/dL Hct (39.0-53.0) % Neutrophils # (1.3-7.7) k/uL Lymphocytes # (1.0-4.8) k/uL Carbon Dioxide 40 H (22-30) mmol/L BUN 60 H (9-20) mg/dL Creatinine 0.49 L (0.66-1.25) mg/dL POC Glucose (mg/dL) 152 H 143 H (70-110) mg/dL 04/12/23 04/12/23 04/12/23 Range/Units 06:14 07:42 07:42 WBC 28.3 H (3.8-10.6) k/uL RBC 3.97 L (4.30-5.90) m/uL Hgb 11.8 L (13.0-17.5) gm/dL Hct 36.3 L (39.0-53.0) % Neutrophils # 26.9 H (1.3-7.7) k/uL Lymphocytes # 0.4 L (1.0-4.8) k/uL Carbon Dioxide 40 H (22-30) mmol/L BUN 64 H (9-20) mg/dL Creatinine 0.53 L (0.66-1.25) mg/dL POC Glucose (mg/dL) 123 H (70-110) mg/dL
[2023-04-12] MEDS: SODIUM CHLORIDE 0.9% 1,000 ML IV SCH ×2 (10:40→21:49)
[2023-04-12 11:37] LABS: Glucose,Whole Blood 126 mg/dL (70-110)
--- NOTE | 2023-04-12 12:57 | P.PN ---
Subjective Progress Note Date: 04/12/23 Principal diagnosis: Acute hypoxic respiratory failure secondary to bacterial pneumonia and COVID-19 infection, possible COVID-19 pneumonia I am seeing this patient in new consultation today 03/24/2023 for suspected left lower lobe pneumonia. Patient is a 73-year-old white male with past medical history significant for recent admission with left lower lobe pneumonia, discharged on March 17. During this admission, the patient was also found to have metastatic adenocarcinoma of the lung based on pleural fluid cytology from a left sided thoracentesis. He also has history of COPD, hypertension, hyperlipidemia, GERD, and ongoing chronic tobacco dependence. Patient is known to have a 10 mm x 7mm right upper lung nodule, originally seen back in June,. His PCP is Dr. Nichols. Chest CT from his most recent admission, March 07, demonstrated a right upper lung bronchus large airway occlusion concerning for obstructive mass. There was also a loculated left pleural effusion with left lung consolidation. The patient was treated with IV antibiotics and discharged home on Augmentin. He was established with an oncologist, and is reportedly going to undergo a PET scan outpatient. Patient returned to the emergency room last night, reporting that he's had ongoing progressively worsening shortness of breath since discharge. He admits an associated nonproductive cough. Denies any fever, chills, myalgias, hemoptysis. Denies any chest pain, palpitations, lower extremity edema, syncope. A chest x-ray done on arrival, showed worsening airspace opacities within the left mid and lower lung zones compared to prior imaging. There was also suspected right lower lung atelectasis, and trace to small bilateral pleural effusions. Patient did test positive for COVID-19, possibly an incidental finding. Patient is currently sitting up in bed, on BiPAP with settings 12/6 and FiO2 of 60%. Appears fairly comfortable. Respiratory rate is high 20s to low 30s and is achieving tidal volumes around 400. CBC on arrival shows leukocytosis with WBC count of 16.9, hemoglobin 14.7, hematocrit 45.4, platelets 150. BMP shows sodium 133, potassium 4.1, chloride 92, serum bi carbonate 39, BUN 17, creatinine 0.43, glucose 99. Currently receiving normal saline at 100 ML's per hour. He was started on empiric Zosyn and azithromycin. Currently afebrile. Also receiving Ventolin HFA, Symbicort inhaler, and IV Decadron. Patient is being monitored closely on the cardiac stepdown unit. Progress note dated 03/25/2023. 73-year-old male admitted on March 24, with a diagnosis of possible left lower lobe pneumonia, and hypoxemic respiratory failure. Currently, the patient is on BiPAP, with settings of 12/6, and 70%. He has no IV fluids running at this time. He did test positive for coronavirus. He does have a history of lung cancer, adenocarcinoma. The only labs today include glucose of 110. Chest x-ray from March 24, shows a small to moderate-sized left pleural effusion, with increased small right pleural effusion. There is also some right lower lung consolidation. Progress note dated 03/26/2023. 73-year-old male admitted on March 24, with a diagnosis of possible left lower lobe pneumonia and hypoxemic respiratory failure. The patient is curren tly on AIRVO, with settings of 60 L/m and an FiO2 of 90%. He's not receiving any IV fluids. A chest x-ray is ordered for March 27. The only lab today with a glucose of 111. Clinically, the patient's doing about the same. Blood cultures are currently negative. Progress note dated 03/27/2023. The patient is seen today in room 368. He continues on AIRVO, with settings of 60 L/m, with an FiO2 of 90%. The chest x-ray done today, shows worsening infiltrates. Clinically, the patient appears reasonably stable. White count 18.6, hemoglobin 10.8, hematocrit 46.2, and platelet count was normal. Sodium 139, potassium 4.6, chlorides 96, CO2 39, BUN 18, and creatinine 0.48. Blood cultures are negative. Chest x-ray shows bilateral pleural/parenchymal opacities, left greater than right. Radiologist feels there may be some improvement. Progress note dated 03/28/2023. This is a 74-year-old male seen in room 368. The patient continues on AIRVO, at 60 L/m, and an FiO2 of 90%. The patient does feel better. He's not receiving any IV fluids. Labs today include only a glucose of 89. As mentioned yesterday, the chest x-ray, as interpreted by the radiologist, suggests some improvement. Progress note dated 03/29/2023. The patient is seen today in room 368. He continues on AIRVO, at 60 L/m, with an FiO2 of 90%. He is getting D5 with normal saline, at 50 mL an hour. She does feel like he is getting better. He looks relatively stable, and his respiratory status, despite being on AIRVO, appears stable. White count is 15.2, with a normal hemoglobin, hematocrit, and platelet count. Sodium 140, potassium 4.4, chlorides 99, CO2 39, BUN 25, and creatinine 0.43. Progress note dated 03/30/2023. The patient is seen today in room 368. He is on AIRVO, with settings of 60 L/m, for flow rate, and an FiO2, that has been dropped down to 80%. The patient continues on saline at 75 mL an hour. Chest x-ray ordered for tomorrow, March 31. No new labs today, other than a glucose of 99. 03/31 2023, the patient remains on high flow oxygen. He remains on 60 L an FiO2 has been done to 70%.the patient remains weak, short of breath, oxygenation. 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 At the same time, the patient was diagnosed having an acute Covid 19 infection.repeat chest x-ray from today shows a stable patchy infiltrates in the left along with small bilateral pleural effusion more so on the left. Meanwhile, the patient was diagnosed having Covid 19 infection on 04/19/2023 and the patient is currently on Decadron. The patient is also was found to have Enterobacter in his sputum and a bacterial pneumonia is suspected. His currently not receiving any antibiotic coverage. He is on Decadron 6 mg IV every 24 hours. He is on Ventolin HFA 4 times a day and Symbicort as maintenance. Rest of the home medications have been all resume. Labs showed a basic on of 12.5, hemoglobin 16.9, BUN is 23 with a creatinine of 0.4. His current pulse ox is 94%. Is getting progressively weak and more debilitated. 04/01 2023, the patient remains on high flow oxygen. This morning, the patient remains on 60 L of 70%. He was provided incentive spirometer. He denies having any worsening shortness of breath. He remains on Decadron 6 mg IV every 24 hours. He did have also patchy infiltrates on the left as discussed earlier and the patient was found to have Enterobacter in his sputum. Currently is afeb rile. Hemodynamically stable. Oral intake is quite limited increase feeling weak and debilitated. Blood work was from yesterday and no recent blood work from today. His renal function is stable. Hemoglobin stable at 13.9. He is afebrile. Pulse ox is in order of 92%. No other significant events over the past 24 hours. Improvement is slow and limited at this point in time. 13 2022, the patient remains on 60 L an FiO2 of 70% on high flow oxygen. The patient is essentially the same. The patient has a congested cough. Is unable to produce significant sputum. I'm very much interested in obtaining another sputum samples for cultures. Meanwhile, based on his earlier Enterobacter grow th in his sputum, the patient is currently on IV cefepime. The patient remains on Decadron 6 mg IV every 24 hours. Repeat chest x-ray from today shows no interval change. There is persistent stable. There is persistent left mid and upper lobe pulmonary infiltrate. There is also small bilateral pleural effusion. The patient is weak. The patient is lethargic. He is arousable and is communicating. Oral intake is quite diminished at this point. He is afebrile. He is hemodynamically stable. On today's evaluation of 04/03/2023, the patient states that he's feeling better. Oxygenation is still impaired and the patient is still requiring high flow oxygen. Currently is on 60 L an FiO2 of 70%. His pulse ox is ranging between 93-95%. He continues to have a congestive cough. IV cefepime was added. The patient remains on steroids. The chest x-ray from yesterday showed a stable consolidation left lung along with a small left-sided pleural effusion. No new labs are available from today. His tolerating diet. He remains on Decadron 6 mg IV every 24 hours. No other significant events overnight. He was encouraged to use incentive spirometer. On today's evaluation of 04/04/2023, the patient remains on Airvo at 60 L an FiO2 of 70%. Is essentially the same setting over the past several days. No major changes in his oxygenation. Continues to produce copious amount of secre tions and his cough is wet and congested and the patient is producing mucus. He does not have another complaints at this point. He is weak. Oral intake is quite diminished. Is on IV cefepime. He remains on Decadron. Unfortunately, he is not making much of progress. I discussed the case with his over the phone and explained to do situation. Current pulse ox is in order of 94-95% on the current high flow oxygen setting. 04/05/2023, the patient is on 60 L an FiO2 of 70%. Pulse ox is in order of 95%. Chest x-ray findings remain stable and I reviewed the chest x-ray from today and there is no significant interval change. There is a patchy pulmonary infiltrate persistent in the left lung. No significant interval change. The patient remains on IV cefepime. The patient is afebrile. On blood work, the patient's serum bicarbs of 45 and the patient will be given 2 doses of Diamox today. Sodiums of 132. The white cell count 13.4, hemoglobin is at 14.1 04/06 2023, no major improvement and the patient remains on high flow oxygen at 60 L an FiO2 of 70%. Continues to be on Decadron. Continues to be on cefepime. Most recent chest x-ray from 04/05/2023 showed stable findings. He is a DNR/DNI CODE STATUS. The patient is seen today 04/07/2023 in follow-up on the selective care unit. He is currently sitting up in bed. He is quite weak and debilitated. He continues to require AirVo high flow oxygen at 60 L and 70% FiO2 with O2 saturation in the 90s. Sputum culture was positive for Enterobacter aerogenes. The cultures revealed no growth. Blood sugar 135. He remains on Symbicort, albuterol, Decadron and vitamin supplements. Heparin for DVT prophylaxis. Antibiotics in the form of cefepime. Family is considering comfort care/hospice. The patient is seen today 04/08/2023 in follow-up on the selective care unit. He is awake. Quite weak and debilitated. He remains on AirVo high flow oxygen at 60 L and 70% FiO2. Sputum culture was positive for Enterobacter aerogenes. Blood cultures revealed no growth. Glucose 113. He is continued on Symbicort, albuterol, vitamin supplements. She remains on Decadron. Antibiotics in the form of cefepime. Remains on diuretics. Currently in a negative balance. Patient was seen today on 04/10/2023, patient is basically about the same, not much of a change in noted over the last 2 days except he is now on 15 L high flow nasal cannula and off airvo. Patient tells me that his feeling better today. Chest x-ray continues to show extensive infiltrate in the left lung. But relatively improved compared to his admission chest x-ray. WBC count remains elevated 18.4 hemoglobin is 12.8 basic metabolic profile is normal sputum has been positive for Enterobacter and the patient is still on cefepime Reevaluated today on 04/11/2023, patient remains on high flow nasal cannula however he is down to 13 L/m, maintaining O2 saturation of 92%. Clinically the patient is feeling fine and feeling better, does not seem to be in any distress, on physical examination continues to have some fine crackles at the left base. Patient is being seen by cardiology for abnormal EKG and ST elevation, his WBC count is 26.8 hemoglobin 11.9 electrolytes are normal renal profile is normal troponin is normal. Reevaluated today on 04/12/2023, a shunt remains on high flow nasal cannula, he was on 11 L all night, and I cut him down to 9 L nasal cannula his O2 sat saturation is in the mid 90s. Patient denies any shortness of breath denies any cough no wheezing no chest pain. He seems to be clinically improving although the patient has been here for quite some time. WBC count is elevated at 28.3 hemoglobin is 11.8.BUN is 64 creatinine 0.53. Objective - Vital Signs Vital signs: Vital Signs Temp 97.7 F 04/12/23 12:00 Pulse 82 04/12/23 12:00 Resp 20 04/12/23 12:00 BP 88/55 04/12/23 12:00 Pulse Ox 94 L 04/12/23 12:00 FiO2 66 04/09/23 08:18 Intake & Output 04/11/23 04/12/23 04/12/23 18:59 06:59 18:59 Intake Total 240 Output Total 607 650 525 Balance -401 -650 -525 Intake: Oral 240 Output: Urine 525 655 525 Other: Voiding Method Urinal Urinal # Voids 1 - Exam GENERAL EXAM: Alert, weak, 73-year-old male, remains on 11 L high flow nasal c annula. HEAD: Normocephalic. EYES: Normal reaction of pupils, equal size. NOSE: Clear with pink turbinates. THROAT: No erythema or exudates. NECK: No masses, no JVD. CHEST: No chest wall deformity. LUNGS: Fine crackles at the left base CVS: S1 and S2 normal with no audible murmur, regular rhythm. ABDOMEN: No hepatosplenomegaly, normal bowel sounds, no guarding or rigidity. SPINE: No scoliosis or deformity SKIN: No rashes CENTRAL NERVOUS SYSTEM: No focal deficits, tone is normal in all 4 extremities. EXTREMITIES: There is no peripheral edema. No clubbing, no cyanosis. Peripheral pulses are intact. - Labs CBC & Chem 7: 04/12/23 07:42 04/12/23 07:42 Labs: Abnormal Lab Results - Last 24 Hours (Table) 04/11/23 04/12/23 04/12/23 Range/Units 20:19 06:14 07:42 WBC 28.3 H (3.8-10.6) k/uL RBC 3.97 L (4.30-5.90) m/uL Hgb 11.8 L (13.0-17.5) gm/dL Hct 36.3 L (39.0-53.0) % Neutrophils # 26.9 H (1.3-7.7) k/uL Lymphocytes # 0.4 L (1.0-4.8) k/uL Carbon Dioxide (22-30) mmol/L BUN (9-20) mg/dL Creatinine (0.66-1.25) mg/dL POC Glucose (mg/dL) 143 H 123 H (70-110) mg/dL 04/12/23 04/12/23 Range/Units 07:42 11:35 WBC (3.8-10.6) k/uL RBC (4.30-5.90) m/uL Hgb (13.0-17.5) gm/dL Hct (39.0-53.0) % Neutrophils # (1.3-7.7) k/uL Lymphocytes # (1.0-4.8) k/uL Carbon Dioxide 40 H (22-30) mmol/L BUN 64 H (9-20) mg/dL Creatinine 0.53 L (0.66-1.25) mg/dL POC Glucose (mg/dL) 126 H (70-110) mg/dL Assessment and Plan Assessment: Impression: Acute hypoxemic respiratory failure secondary to recurrent/persistent left lower lobe pneumonia., Suspect a bacterial pneumonia/Enterobacter pneumonia and possibly underlying COVID-19 infection/pneumonia Leukocytosis, secondary to above Acute COPD exacerbation, secondary to above Metastatic pulmonary adenocarcinoma based on previous positive cytology/thoracentesis left side History of right apical lung nodule measuring 10 x 7 mm June, Benign essential hypertension Hyperlipidemia GERD Chronic ongoing tobacco dependence Recommendation: Continue high flow nasal cannula and titrate accordingly, down to 9 L nasal cannula high flow Continue cefepime Continue COVID-19 cocktail DO NOT RESUSCITATE/DO NOT INTUBATE CODE STATUS We'll continue to follow for now for now Time with Patient: Less than 30
[2023-04-12] MEDS: DEXTROSE 5%-0.9% NACL 1,000 ML IV SCH (16:08)
[2023-04-12] MEDS: ATORVASTATIN 20 MG TAB PO SCH (21:48)
[2023-04-13] MEDS: HEPARIN SODIUM,PORCINE 5,000 UNIT/ML 1 ML VIAL SQ SCH ×3 (05:01→16:56)
[2023-04-13] MEDS: MIDODRINE 5 MG TAB PO SCH ×2 (06:35→16:56)
[2023-04-13] MEDS: PANTOPRAZOLE 40 MG TABLET PO SCH (06:36)
[2023-04-13] MEDS: droNABinol 2.5 MG CAP PO SCH (06:36)
[2023-04-13] MEDS: SYMBICORT 160-4.5 MCG INHALER INHALATION SCH ×2 (08:03→20:02)
[2023-04-13] MEDS: ALBUTEROL HFA INHALER INHALATION SCH ×4 (08:03→20:02)
[2023-04-13] MEDS: POTASSIUM CHLORIDE ER 10 MEQ TAB.ER.PRT PO SCH (09:05)
[2023-04-13] MEDS: ASPIRIN 81 MG PO SCH (09:05)
[2023-04-13] MEDS: CHOLECALCIFEROL 25 MCG (1000 IU) TABLET PO SCH (09:05)
[2023-04-13] MEDS: ZINC SULFATE 220 MG CAP PO SCH (09:05)
[2023-04-13] MEDS: BISOPROLOL-HCTZ 5-6.25 MG 1 EACH TAB PO SCH (09:05)
[2023-04-13] MEDS: ESCITALOPRAM 10 MG TAB PO SCH (09:05)
[2023-04-13] MEDS: FUROSEMIDE 40 MG TAB PO SCH (09:05)
[2023-04-13] MEDS: ASCORBIC ACID 500 MG TAB PO SCH (09:05)
[2023-04-13] MEDS: DOCUSATE 100 MG CAP PO SCH ×2 (09:05→20:57)
[2023-04-13] MEDS: FAMOTIDINE 20 MG TAB PO SCH (09:05)
[2023-04-13] MEDS: guaiFENesin 600 MG TABLET.ER PO SCH ×2 (09:05→20:57)
[2023-04-13] MEDS: DEXAMETHASONE SOD PHOSPHATE 10 MG/ML 1 ML VIAL IVP SCH (09:06)
[2023-04-13 11:29] LABS: African American GFR (CKD) >90 (>60 ml/min/1.73 sqM); Anion Gap 0 mmol/L; Blood Urea Nitrogen 49 mg/dL (9-20); Carbon Dioxide 38 mmol/L (22-30); Chloride 98 mmol/L (98-107); Glucose 129 mg/dL (74-99); Non-African American GFR(CKD) >90 (>60 ml/min/1.73 sqM); Potassium 4.5 mmol/L (3.5-5.1); Sodium 136 mmol/L (137-145)
--- NOTE | 2023-04-13 11:45 | P.PN ---
Subjective Progress Note Date: 04/13/23 I am seeing this patient in new consultation today 03/24/2023 for suspected left lower lobe pneumonia. Patient is a 73-year-old white male with past medical history significant for recent admission with left lower lobe pneumonia, discharged on March 17. During this admission, the patient was also found to have metastatic adenocarcinoma of the lung based on pleural fluid cytology from a left sided thoracentesis. He also has history of COPD, hypertension, hyperlipidemia, GERD, and ongoing chronic tobacco dependence. Patient is known to have a 10 mm x 7mm right upper lung nodule, originally seen back in June,. His PCP is Dr. Nichols. Chest CT from his most recent admission, March 07, demonstrated a right upper lung bronchus large airway occlusion concerning for obstructive mass. There was also a loculated left pleural effusion with left lung consolidation. The patient was treated with IV antibiotics and discharged home on Augmentin. He was established with an oncologist, and is reportedly going to undergo a PET scan outpatient. Patient returned to the emergency room last night, reporting that he's had ongoing progressively worsening shortness of breath since discharge. He admits an associated nonproductive cough. Denies any fever, chills, myalgias, hemoptysis. Denies any chest pain, palpitations, lower extremity edema, syncope. A chest x-ray done on arrival, showed worsening airspace opacities within the left mid and lower lung zones compared to prior imaging. There was also suspected right lower lung atelectasis, and trace to small bilateral pleural effusions. Patient did test positive for COVID-19, possibly an incidental finding. Patient is currently sitting up in bed, on BiPAP with settings 12/6 and FiO2 of 60%. Appears fairly comfortable. Respiratory rate is high 20s to low 30s and is achieving tidal volumes around 400. CBC on arrival shows leukocytosis with WBC count of 16.9, hemoglobin 14.7, hematocrit 45.4, platelets 150. BMP shows sodium 133, potassium 4.1, chloride 92, serum bicarbonate 39, BUN 17, creatinine 0.43, glucose 99. Currently receiving normal saline at 100 ML's per hour. He was started on empiric Zosyn and azithromycin. Currently afebrile. Also receiving Ventolin HFA, Symbicort inhaler, and IV Decadron. Patient is being monitored closely on the cardiac stepdown unit. Progress note dated 03/25/2023. 73-year-old male admitted on March 24, with a diagnosis of possible left lower lobe pneumonia, and hypoxemic respiratory failure. Currently, the patient is on BiPAP, with settings of 12/6, and 70%. He has no IV fluids running at this time. He did test positive for coronavirus. He does have a history of lung cancer, adenocarcinoma. The only labs today include glucose of 110. Chest x-ray from March 24, shows a small to moderate-sized left pleural effusion, with increased small right pleural effusion. There is also some right lower lung consolidation. Progress note dated 03/26/2023. 73-year-old male admitted on March 24, with a diagnosis of possible left lower lobe pneumonia and hypoxemic respiratory failure. The patient is currently on AIRVO, with settings of 60 L/m and an FiO2 of 90%. He's not receiving any IV fluids. A chest x-ray is ordered for March 27. The only lab today with a glucose of 111. Clinically, the patient's doing about the same. Blood cultures are currently negative. Progress note dated 03/27/2023. The patient is seen today in room 368. He continues on AIRVO, with settings of 60 L/m, with an FiO2 of 90%. The chest x-ray done today, shows worsening infiltrates. Clinically, the patient appears reasonably stable. White count 18.6, hemoglobin 10.8, hematocrit 46.2, and platelet count was normal. Sodium 139, potassium 4.6, chlorides 96, CO2 39, BUN 18, and creatinine 0.48. Blood cultures are negative. Chest x-ray shows bilateral pleural/parenchymal opac ities, left greater than right. Radiologist feels there may be some improvement. Progress note dated 03/28/2023. This is a 74-year-old male seen in room 368. The patient continues on AIRVO, at 60 L/m, and an FiO2 of 90%. The patient does feel better. He's not receiving any IV fluids. Labs today include only a glucose of 89. As mentioned yesterday, the chest x-ray, as interpreted by the radiologist, suggests some improvement. Progress note dated 03/29/2023. The patient is seen today in room 368. He continues on AIRVO, at 60 L/m, with an FiO2 of 90%. He is getting D5 with normal saline, at 50 mL an hour. She does feel like he is getting better. He looks relatively stable, and his respiratory status, despite being on AIRVO, appears stable. White count is 15.2, with a normal hemoglobin, hematocrit, and platelet count. Sodium 140, potassium 4.4, chlorides 99, CO2 39, BUN 25, and creatinine 0.43. Progress note dated 03/30/2023. The patient is seen today in room 368. He is on AIRVO, with settings of 60 L/m, for flow rate, and an FiO2, that has been dropped down to 80%. The patient continues on saline at 75 mL an hour. Chest x-ray ordered for tomorrow, March 31. No new labs today, other than a glucose of 99. 03/31 2023, the patient remains on high flow oxygen. He remains on 60 L an FiO2 has been done to 70%.the patient remains weak, short of breath, oxygenation. 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 At the same time, the patient was diagnosed having an acute Covid 19 infection.repeat chest x-ray from today shows a stable patchy infiltrates in the left along with small bilateral pleural effusion more so on the left. Meanwhile, the patient was diagnosed having Covid 19 infection on 04/19/2023 and the patient is currently on Decadron. The patient is also was found to have Enterobacter in his sputum and a bacterial pneumonia is suspected. His currently not receiving any antibiotic coverage. He is on Decadron 6 mg IV every 24 hours. He is on Ventolin HFA 4 times a day and Symbicort as maintenance. Rest of the home medications have been all resume. Labs showed a basic on of 12.5, hemoglobin 16.9, BUN is 23 with a creatinine of 0.4. His current pulse ox is 94%. Is getting progressively weak and more debilitated. 04/01 2023, the patient remains on high flow oxygen. This morning, the patient remains on 60 L of 70%. He was provided incentive spirometer. He denies having any worsening shortness of breath. He remains on Decadron 6 mg IV every 24 hours. He did have also patchy infiltrates on the left as discussed earlier and the patient was found to have Enterobacter in his sputum. Currently is afebrile. Hemodynamically stable. Oral intake is quite limited increase feeling weak and debilitated. Blood work was from yesterday and no recent blood work from today. His renal function is stable. Hemoglobin stable at 13.9. He is afebrile. Pulse ox is in order of 92%. No other significant events over the past 24 hours. Improvement is slow and limited at this point in time. 13 2022, the patient remains on 60 L an FiO2 of 70% on high flow oxygen. The patient is essentially the same. The patient has a congested cough. Is unable to produce significant sputum. I'm very much interested in obtaining another sputum samples for cultures. Meanwhile, based on his earlier Enterobacter growth in his sputum, the patient is currently on IV cefepime. The patient remains on Decadron 6 mg IV every 24 hours. Repeat chest x-ray from today shows no interval change. There is persistent stable. There is persistent left mid and upper lobe pulmonary infiltrate. There is also small bilateral pleural effusion. The patient is weak. The patient is lethargic. He is arousable and is communicating. Oral intake is quite diminished at this point. He is afebri le. He is hemodynamically stable. On today's evaluation of 04/03/2023, the patient states that he's feeling better. Oxygenation is still impaired and the patient is still requiring high flow oxygen. Currently is on 60 L an FiO2 of 70%. His pulse ox is ranging between 93-95%. He continues to have a congestive cough. IV cefepime was added. The patient remains on steroids. The chest x-ray from yesterday showed a stable consolidation left lung along with a small left-sided pleural effusion. No new labs are available from today. His tolerating diet. He remains on Decadron 6 mg IV every 24 hours. No other significant events overnight. He was encouraged to use incentive spirometer. On today's evaluation of 04/04/2023, the patient remains on Airvo at 60 L an FiO2 of 70%. Is essentially the same setting over the past several days. No major changes in his oxygenation. Continues to produce copious amount of secretions and his cough is wet and congested and the patient is producing mucus. He does not have another complaints at this point. He is weak. Oral intake is quite diminished. Is on IV cefepime. He remains on Decadron. Unfortunately, he is not making much of progress. I discussed the case with his over the phone and explained to do situation. Current pulse ox is in order of 94-95% on the current high flow oxygen setting. 04/05/2023, the patient is on 60 L an FiO2 of 70%. Pulse ox is in order of 95%. Chest x-ray findings remain stable and I reviewed the chest x-ray from today and there is no significant interval change. There is a patchy pulmonary infiltrate persistent in the left lung. No significant interval change. The patient remains on IV cefepime. The patient is afebrile. On blood work, the patient's serum bicarbs of 45 and the patient will be given 2 doses of Diamox today. Sodiums of 132. The white cell count 13.4, hemoglobin is at 14.1 04/06 2023, no major improvement and the patient remains on high flow oxygen at 60 L an FiO2 of 70%. Continues to be on Decadron. Continues to be on cefepime. Most recent chest x-ray from 04/05/2023 showed stable findings. He is a DNR/DNI CODE STATUS. The patient is seen today 04/07/2023 in follow-up on the selective care unit. He is currently sitting up in bed. He is quite weak and debilitated. He continues to require AirVo high flow oxygen at 60 L and 70% FiO2 with O2 satura tion in the 90s. Sputum culture was positive for Enterobacter aerogenes. The cultures revealed no growth. Blood sugar 135. He remains on Symbicort, albuterol, Decadron and vitamin supplements. Heparin for DVT prophylaxis. Antibiotics in the form of cefepime. Family is considering comfort care /hospice. The patient is seen today 04/08/2023 in follow-up on the selective care unit. He is awake. Quite weak and debilitated. He remains on AirVo high flow oxygen at 60 L and 70% FiO2. Sputum culture was positive for Enterobacter aerogenes. Blood cultures revealed no growth. Glucose 113. He is continued on Symbicort, albuterol, vitamin supplements. She remains on Decadron. Antibiotics in the form of cefepime. Remains on diuretics. Currently in a negative balance. The patient is seen today 04/09/2023 in follow-up on the selective care unit. He remains awake and alert. Resting in bed. Still requiring AirVo high flow nasal cannula at 60 L and 65% FiO2. Sputum culture positive for Enterobacter aerogenes. Blood cultures reveal no growth. White count 18.4. Hemoglobin 12.8. Platelets 143. Sodium 136. Potassium 4.8. Bicarb. 9. BUN 49. Creatinine 0.40. AST 46. ALT 108. Albumin 2.9. He is continued on Symbicort, albuterol, vitamin supplements. She remains on Decadron. Antibiotics in the form of cefepime. Remains on diuretics. The patient is seen today 04/13/2023 in follow-up on the selective care unit. He is sitting up in a chair at the bedside. Awake and alert in no acute distress. Is currently on 9 L high flow nasal cannula with O2 saturations in the 90s. He's been afebrile. Hemodynamically stable. Sputum culture was positive for Enterobacter aerogenes. Blood cultures reveal no growth. Sodium 136. Potassium 4.5. Bicarb 38. BUN 49. Creatinine 0.52. Glucose 129. He is continued on Symbicort, albuterol, Decadron. Heparin for DVT prophylaxis. Remains on vitamin supplements. Objective - Vital Signs Vital signs: Vital Signs Temp 97.5 F L 04/13/23 00:00 Pulse 88 04/13/23 10:47 Resp 20 04/13/23 10:47 BP 98/52 04/13/23 04:00 Pulse Ox 94 L 04/13/23 08:04 FiO2 66 04/09/23 08:18 Intake & Output 04/12/23 04/13/23 04/13/23 18:59 06:59 18:59 Intake Total 240 Output Total 525 1400 Balance -285 -1400 Intake: Oral 240 Output: Urine 525 1400 Other: Voiding Method Urinal Urinal Urinal # Voids 1 # Bowel Movements 1 - Exam GENERAL EXAM: Alert, pleasant 73-year-old male, in a chair, remains on 9 L high flow nasal cannula, fairly comfortable. HEAD: Normocephalic. EYES: Normal reaction of pupils, equal size. NOSE: Clear with pink turbinates. THROAT: No erythema or exudates. NECK: No masses, no JVD. CHEST: No chest wall deformity. LUNGS: Equal air entry with crackles in the bilateral bases right greater than left CVS: S1 and S2 normal with no audible murmur, regular rhythm. ABDOMEN: No hepatosplenomegaly, normal bowel sounds, no guarding or rigidity. SPINE: No scoliosis or deformity SKIN: No rashes CENTRAL NERVOUS SYSTEM: No focal deficits, tone is normal in all 4 extremities. EXTREMITIES: There is no peripheral edema. No clubbing, no cyanosis. Peripheral pulses are intact. - Labs CBC & Chem 7: 04/12/23 07:42 04/13/23 10:45 Labs: Abnormal Lab Results - Last 24 Hours (Table) 04/13/23 Range/Units 10:45 Sodium 136 L (137-145) mmol/L Carbon Dioxide 38 H (22-30) mmol/L BUN 49 H (9-20) mg/dL Creatinine 0.52 L (0.66-1.25) mg/dL Glucose 129 H (74-99) mg/dL Assessment and Plan Assessment: Acute hypoxemic respiratory failure secondary to recurrent/persistent left lower lobe pneumonia. Chest x-ray on arrival demonstrates worsening opacities within the left mid and lower lung zones compared to his recent imaging. There was also suspected right lower lung atelectasis, and trace to small bilateral pleural effusions. Also, did test positive for COVID-19, possibly an incidental finding. The patient has also Enterobacter in his sputum and patchy infiltrates are seen in the left upper lobe and the left lower lobe. Rule out malignancy/primary bronchogenic carcinoma. Rule out bacterial infection/pneumonia as the patient was found to have Enterobacter in his sputum. In addition, he has advanced COPD, and a malignant left-sided pleural effusion. No major interval change in his overall condition and oxygenation. The patient remains on Decadron. Repeat chest x-ray from 04/05/2023 shows a stable peripheral left lung pulmonary infiltrate and small bilateral pleural effusions. The patient continues to require 9 L high flow nasal cannula to maintain a oxygenation saturation above 90% Leukocytosis, secondary to above Acute COPD exacerbation, secondary to above Recent diagnosis of metastatic pulmonary adenocarcinoma based on pleural fluid cytology from a left-sided thoracentesis 03/11/23 History of right apical lung nodule measuring 10 x 7 mm June, Benign essential hypertension Hyperlipidemia GERD Chronic ongoing tobacco dependence Plan: The patient was seen and evaluated Labs and medications reviewed Titrate down the FiO2 as tolerated Continue current treatment plan We'll continue to follow for now for now I have personally seen and examined the patient, performed the documentation and the assessment and plan as written. Number of minutes spent on the visit: 10.
[2023-04-13 12:00] LABS: Basophils % (A) 0 %; Eosinophils % (A) 0 %; HCT 36.5 % (39.0-53.0); HGB 11.6 gm/dL (13.0-17.5); Hypochromasia Slight; Lymphocytes # (A) 0.2 k/uL (1.0-4.8); Lymphocytes % (A) 1 %; MCH 29.1 pg (25.0-35.0); MCHC 31.8 g/dL (31.0-37.0); MCV 91.7 fL (80.0-100.0); Mean Platelet Volume 10.1; Monocytes # (A) 0.7 k/uL (0-1.0); Monocytes % (A) 3 %; Neutrophils # (A) 23.6 k/uL (1.3-7.7); Neutrophils % (A) 95 %; Platelet Count 153 k/uL (150-450); RBC 3.98 m/uL (4.30-5.90); RDW 15.1 % (11.5-15.5); WBC 24.7 k/uL (3.8-10.6)
[2023-04-13] MEDS: SODIUM CHLORIDE 0.9% 1,000 ML IV SCH (12:11)
--- NOTE | 2023-04-13 12:17 | P.PN ---
Subjective Progress Note Date: 04/13/23 Patient examined this morning at the bedside. Patient denies chest pain or pressure. He currently denies shortness of breath. However, he remains on high flow nasal cannula at 12 L. Blood pressure remains borderline. Most recent blood pressure 98/52. Objective - Vital Signs Vital signs: Vital Signs Temp 97.5 F L 04/13/23 00:00 Pulse 88 04/13/23 10:47 Resp 20 04/13/23 10:47 BP 98/52 04/13/23 04:00 Pulse Ox 94 L 04/13/23 08:04 FiO2 66 04/09/23 08:18 Intake & Output 04/12/23 04/13/23 04/13/23 18:59 06:59 18:59 Intake Total 240 Output Total 525 1400 Balance -285 -1400 Intake: Oral 240 Output: Urine 525 1400 Other: Voiding Method Urinal Urinal Urinal # Voids 1 # Bowel Movements 1 - Exam PHYSICAL EXAM: VITAL SIGNS: Reviewed. GENERAL: Well-developed in no acute distress. HEENT: Head is normocephalic. Pupils are equal, round. Sclerae anicteric. Mucous membranes of the mouth are moist. Neck supple. No JVD or thyromegaly LUNGS: Respirations even and unlabored. Lungs with bilateral rhonchi. HEART: Regular rate and rhythm. S1 and S2 heard. ABDOMEN: Soft. Nondistended. Nontender. EXTREMITIES: Normal range of motion. No clubbing or cyanosis. Peripheral pulses intact. No lower extremity edema NEUROLOGIC: Awake and alert. Oriented x 3. - Labs CBC & Chem 7: 04/13/23 10:45 04/13/23 10:45 Labs: Abnormal Lab Results - Last 24 Hours (Table) 04/13/23 04/13/23 Range/Units 10:45 10:45 WBC 24.7 H (3.8-10.6) k/uL RBC 3.98 L (4.30-5.90) m/uL Hgb 11.6 L (13.0-17.5) gm/dL Hct 36.5 L (39.0-53.0) % Neutrophils # 23.6 H (1.3-7.7) k/uL Lymphocytes # 0.2 L (1.0-4.8) k/uL Sodium 136 L (137-145) mmol/L Carbon Dioxide 38 H (22-30) mmol/L BUN 49 H (9-20) mg/dL Creatinine 0.52 L (0.66-1.25) mg/dL Glucose 129 H (74-99) mg/dL Assessment and Plan Assessment: ASSESSMENT: Shortness of breath Acute hypoxic respiratory failure Pneumonia Acute Covid 19 infection Leukocytosis EKG with diffuse ST elevation, possible myocarditis Hypertension, currently hypotensive Hyperlipidemia Nicotine dependence Plan: Continue current cardiac medications Continue with conservative management at this time Further recommendations pending patient's course Nurse practitioner note has been reviewed by physician. Signing provider agrees with the documented findings, assessment, and plan of care.
--- NOTE | 2023-04-13 12:23 | P.PN ---
Subjective 04/12/2023: She reevaluated today for his ongoing COVID-19 pneumonia and acute COPD. He also has non-small cell lung carcinoma, stage IV. He is very slowly improving. He is currently at 94% on high flow nasal cannula 11 L/m. This is down from 12-15 yesterday. He remains afebrile. Heart rate rest rate control. He denies any recent stooling. Sedation elevated BUN 64 and a creatinine of 0.53. WBC was 20.3 with hemoglobin 11.8. Pulmonology and medical oncology notes reviewed. Cardiology had seen him for elevated ST segments on telemetry and then an EKG. They had asked for a recommended continuing current therapy. He has had some red blood per rectum. This is felt to be due to hemorrhoids. It has not recurred. He remains DNR, no intubation. 04/13/2023: Patient is slowly improving from his COVID-19, acute COPD exacerbation. He also has a history of a non-small cell lung carcinoma stage IV. His oxygen titration is now 9 L/m via nasal cannula and he is 94% SaO2. I discussed ECF for rehabilitation once his oxygen level is low enough. His WBC count remains elevated at 24.7 the predominant left shift. His IV fluids have improved his BUN and creatinine. Pulmonology consult recommendations noted. Patient remains on normal saline 75 mL an hour, potassium chloride, admitted drain, subcutaneous heparin, guaifenesin for furosemide, Marinol, docusate, Decadron, Symbicort, Ziac, atorvastatin, albuterol updrafts. His overall status is slightly improved, but he remains very debilitated Objective - Vital Signs Vital signs: Vital Signs Temp 97.5 F L 04/13/23 00:00 Pulse 88 04/13/23 10:47 Resp 20 04/13/23 10:47 BP 98/52 04/13/23 04:00 Pulse Ox 94 L 04/13/23 08:04 FiO2 66 04/09/23 08:18 Intake & Output 04/12/23 04/13/23 04/13/23 18:59 06:59 18:59 Intake Total 240 Output Total 525 1400 Balance -285 -1400 Intake: Oral 240 Output: Urine 525 1400 Other: Voiding Method Urinal Urinal Urinal # Voids 1 # Bowel Movements 1 - Exam General: Patient awake, alert and oriented times 3. wearing nasal cannula current settings are 9 L/m. appears improved. Currently in bed Neck: supple,No JVD. Cardiac: Regular S1 and S2. No S3. No S4. No clicks, rubs. No murmur. Lungs: .Diminished bilateral breath sounds, scattered minimal rhonchi noted. Abdomen: Soft, nontender, no guarding. Bowel sounds present and normoactive in all 4 quadrants. Extremes trace edema no cyanosis no claudication normal pulses, many boots are not in place Skin: No rash, warm and dry. Psych: He is awake alert and oriented 3, Neurologic: No lateralizing deficits. CN II - XII grossly intact. - Labs CBC & Chem 7: 04/13/23 10:45 04/13/23 10:45 Labs: Abnormal Lab Results - Last 24 Hours (Table) 04/13/23 04/13/23 Range/Units 10:45 10:45 WBC 24.7 H (3.8-10.6) k/uL RBC 3.98 L (4.30-5.90) m/uL Hgb 11.6 L (13.0-17.5) gm/dL Hct 36.5 L (39.0-53.0) % Neutrophils # 23.6 H (1.3-7.7) k/uL Lymphocytes # 0.2 L (1.0-4.8) k/uL Sodium 136 L (137-145) mmol/L Carbon Dioxide 38 H (22-30) mmol/L BUN 49 H (9-20) mg/dL Creatinine 0.52 L (0.66-1.25) mg/dL Glucose 129 H (74-99) mg/dL Assessment and Plan (1) COVID-19 Current Visit: Yes Status: Acute Priority: High Code(s): U07.1 - COVID-19 SNOMED Code(s): 071378285 (2) Acute and chronic respiratory failure ([id number]) Current Visit: No Status: Acute Code(s): J96.20 - ACUTE AND CHR RESP FAILURE, UNSP W HYPOXIA OR HYPERCAPNIA SNOMED Code(s): 39719876 (3) Acute respiratory failure with hypoxia Current Visit: Yes Status: Acute Code(s): J96.01 - ACUTE RESPIRATORY FAILURE WITH HYPOXIA SNOMED Code(s): 78242841 (4) Acute exacerbation of chronic obstructive pulmonary disease Current Visit: No Status: Acute Priority: High Code(s): J44.1 - CHRONIC OBSTRUCTIVE PULMONARY DISEASE W (ACUTE) EXACERBATION SNOMED Code(s): 844323698 (5) Adenocarcinoma of lung Current Visit: Yes Status: Acute Priority: High Code(s): C34.90 - MALIGNANT NEOPLASM OF UNSP PART OF UNSP BRONCHUS OR LUNG SNOMED Code(s): 248270774 (6) Essential (primary) hypertension Current Visit: No Status: Acute Code(s): I10 - ESSENTIAL (PRIMARY) HYPERTENSION SNOMED Code(s): 82997372 (7) Tobacco dependence Current Visit: No Status: Acute Code(s): F17.200 - NICOTINE DEPENDENCE, UNSPECIFIED, UNCOMPLICATED SNOMED Code(s): 13826835 (8) Depression with anxiety Current Visit: Yes Status: Acute Code(s): F41.8 - OTHER SPECIFIED ANXIETY DISORDERS SNOMED Code(s): 521835122 Plan: He continues improving slowly. Pulmonology's notes were reviewed. He'll continue on his current treatments. We will encourage physical therapy. Repeat labs in a.m. due to the elevated BUN Continue IV fluids He'll be reevaluated next 24 hours.
[2023-04-13] MEDS: DEXTROSE 5%-0.9% NACL 1,000 ML IV SCH (19:51)
[2023-04-13] MEDS: ATORVASTATIN 20 MG TAB PO SCH (20:57)
[2023-04-14] MEDS: HEPARIN SODIUM,PORCINE 5,000 UNIT/ML 1 ML VIAL SQ SCH ×4 (00:05→23:32)
[2023-04-14] MEDS: SODIUM CHLORIDE 0.9% 1,000 ML IV SCH ×2 (06:21→09:18)
[2023-04-14] MEDS: droNABinol 2.5 MG CAP PO SCH (06:32)
[2023-04-14] MEDS: MIDODRINE 5 MG TAB PO SCH ×2 (06:32→17:09)
[2023-04-14] MEDS: PANTOPRAZOLE 40 MG TABLET PO SCH (06:32)
--- NOTE | 2023-04-14 07:50 | XR ---
EXAMINATION TYPE: XR chest 1V portable DATE OF EXAM: 04/14/2023 6:42 AM CLINICAL INDICATION:Male, 73 years old with history of Covid, pneumonia; COMPARISON: 04/10/2023 TECHNIQUE: XR chest 1V portable Frontal view of the chest. FINDINGS: Lungs/Pleura: Scattered scattered left-sided airspace opacities are similar. Blunting of the costophr enic angles. No pneumothorax. Pulmonary vascularity: Unremarkable. Heart/mediastinum: Cardiomediastinal silhouette is unremarkable. Musculoskeletal: No acute osseous pathology. Multiple remote rib fractures.Right shoulder arthroplast y with hardware in stable position. IMPRESSION: 1. Similar left multifocal airspace opacities. 2. Stable trace bilateral pleural effusions.
[2023-04-14] MEDS: SYMBICORT 160-4.5 MCG INHALER INHALATION SCH ×2 (07:53→20:22)
[2023-04-14] MEDS: ALBUTEROL HFA INHALER INHALATION SCH ×4 (07:53→20:21)
[2023-04-14] MEDS: POTASSIUM CHLORIDE ER 10 MEQ TAB.ER.PRT PO SCH (09:07)
[2023-04-14] MEDS: ASCORBIC ACID 500 MG TAB PO SCH (09:07)
[2023-04-14] MEDS: ASPIRIN 81 MG PO SCH (09:07)
[2023-04-14] MEDS: CHOLECALCIFEROL 25 MCG (1000 IU) TABLET PO SCH (09:07)
[2023-04-14] MEDS: ZINC SULFATE 220 MG CAP PO SCH (09:07)
[2023-04-14] MEDS: ESCITALOPRAM 10 MG TAB PO SCH (09:07)
[2023-04-14] MEDS: DOCUSATE 100 MG CAP PO SCH ×2 (09:07→20:27)
[2023-04-14] MEDS: FAMOTIDINE 20 MG TAB PO SCH (09:07)
[2023-04-14] MEDS: guaiFENesin 600 MG TABLET.ER PO SCH ×2 (09:07→20:27)
[2023-04-14] MEDS: DEXAMETHASONE SOD PHOSPHATE 10 MG/ML 1 ML VIAL IVP SCH (09:08)
[2023-04-14 09:17] LABS: African American GFR (CKD) >90 (>60 ml/min/1.73 sqM); Anion Gap 3 mmol/L; Blood Urea Nitrogen 55 mg/dL (9-20); Calcium 9.4 mg/dL (8.4-10.2); Carbon Dioxide 39 mmol/L (22-30); Chloride 96 mmol/L (98-107); Glucose 106 mg/dL (74-99); Non-African American GFR(CKD) >90 (>60 ml/min/1.73 sqM); Potassium 4.4 mmol/L (3.5-5.1); Sodium 138 mmol/L (137-145)
[2023-04-14] MEDS: BISOPROLOL-HCTZ 5-6.25 MG 1 EACH TAB PO SCH (11:24)
--- NOTE | 2023-04-14 12:07 | P.PN ---
Subjective Progress Note Date: 04/14/23 Principal diagnosis: Stage IV NSCLC In f/u today pt Sitting up in bed, his respirations seem less labored at rest, however when he leaned forward for lung exam he was noted to be short of breath. Patient denies any pain. He is on high flow nasal cannula at 9L Objective - Vital Signs Vital signs: Vital Signs Temp 97.7 F 04/14/23 08:25 Pulse 116 H 04/14/23 08:25 Resp 20 04/14/23 08:25 BP 82/54 04/14/23 08:25 Pulse Ox 91 L 04/14/23 08:25 FiO2 66 04/09/23 08:18 Intake & Output 04/13/23 04/14/23 04/14/23 18:59 06:59 18:59 Intake Total 354 Output Total 1300 300 200 Balance -946 -300 -200 Intake: Oral 354 Output: Urine 1300 300 200 Other: Voiding Method Urinal Urinal Urinal # Bowel Movements 1 - Constitutional General appearance: Present: average body habitus, cooperative, no acute distress - EENT Eyes: Present: anicteric sclerae, EOMI ENT: Present: hearing grossly normal - Respiratory Details: Air entry throughout the lungs is appreciated, significantly diminished breath s ounds - Cardiovascular Details: Radial pulses 2+ - Peripheral edema leg Peripheral Edema: bilateral: Trace - Gastrointestinal General gastrointestinal: Present: normal bowel sounds, soft - Neurologic Neurologic: Present: CNII-XII intact - Musculoskeletal Musculoskeletal: Present: generalized weakness, strength equal bilaterally - Psychiatric Psychiatric: Present: A&O x's 3, appropriate affect, intact judgment & insight - Labs CBC & Chem 7: 04/13/23 10:45 04/14/23 08:18 Labs: Abnormal Lab Results - Last 24 Hours (Table) 04/13/23 04/14/23 Range/Units 10:45 08:18 WBC 24.7 H (3.8-10.6) k/uL RBC 3.98 L (4.30-5.90) m/uL Hgb 11.6 L (13.0-17.5) gm/dL Hct 36.5 L (39.0-53.0) % Neutrophils # 23.6 H (1.3-7.7) k/uL Lymphocytes # 0.2 L (1.0-4.8) k/uL Chloride 96 L (98-107) mmol/L Carbon Dioxide 39 H (22-30) mmol/L BUN 55 H (9-20) mg/dL Creatinine 0.60 L (0.66-1.25) mg/dL Glucose 106 H (74-99) mg/dL - Imaging and Cardiology Chest x-ray: report reviewed Assessment and Plan (1) Adenocarcinoma of lung Current Visit: Yes Status: Acute Priority: High Code(s): C34.90 - MALIGNANT NEOPLASM OF UNSP PART OF UNSP BRONCHUS OR LUNG SNOMED Code(s): 875709540 Plan: Stage IV NSCLC -02/2023 pleural fluid on the left + for adenocarcinoma -Unable to have staging PET Due to prolonged hospitalization admission for Covid infection. -NGS showed no actionable mutation, PD-L1 was <1%, microsatellite instability was intermediate, TMB low. -Onc recommendations for treatment would be dual IO therapy but, based on pt current PS (2-3), he is not a candidate for treatment at this time -Pending pt progress and recovery from acute resp illness for further recommendations regarding treatment from Oncology -F/U with Medical Onc after rehab. Will plan for staging PET scan if pt and family are planning on pursuing treatment of stage IV malignancy
--- NOTE | 2023-04-14 13:34 | P.PN ---
Subjective Progress Note Date: 04/14/23 Principal diagnosis: Hypoxemic respiratory failure. I am seeing this patient in new consultation today 03/24/2023 for suspected left lower lobe pneumonia. Patient is a 73-year-old white male with past medical history significant for recent admission with left lower lobe pneumonia, discharged on March 17. During this admission, the patient was also found to have metastatic adenocarcinoma of the lung based on pleural fluid cytology from a left sided thoracentesis. He also has history of COPD, hypertension, hyperlipidemia, GERD, and ongoing chronic tobacco dependence. Patient is known to have a 10 mm x 7mm right upper lung nodule, originally seen back in June,. His PCP is Dr. Nichols. Chest CT from his most recent admission, March 07, demonstrated a right upper lung bronchus large airway occlusion concerning for obstructive mass. There was also a loculated left pleural effusion with left lung consolidation. The patient was treated with IV antibiotics and discharged home on Augmentin. He was established with an oncologist, and is reportedly going to undergo a PET scan outpatient. Patient returned to the emergency room last night, reporting that he's had ongoing progressively worsening shortness of breath since discharge. He admits an associated nonproductive cough. Denies any fever, chills, myalgias, hemoptysis. Denies any chest pain, palpitations, lower extremity edema, syncope. A chest x-ray done on arrival, showed worsening airspace opacities within the left mid and lower lung zones compared to prior imaging. There was also suspected right lower lung atelectasis, and trace to small bilateral pleural effusions. Patient did test positive for COVID-19, possibly an incidental finding. Patient is currently sitting up in bed, on BiPAP with settings 12/6 and FiO2 of 60%. Appears fairly comfortable. Respiratory rate is high 20s to low 30s and is achieving tidal volumes around 400. CBC on arrival shows leukocytosis with WBC count of 16.9, hemoglobin 14.7, hematocrit 45.4, platelets 150. BMP shows sodium 133, potassium 4.1, chloride 92, serum bicarbonate 39, BUN 17, creatinine 0.43, glucose 99. Currently receiving normal saline at 100 ML's per hour. He was started on empiric Zosyn and azithromycin. Currently afebrile. Also receiving Ventolin HFA, Symbicort inhaler, and IV Decadron. Patient is being monitored closely on the cardiac stepdown unit. Progress note dated 03/25/2023. 73-year-old male admitted on March 24, with a diagnosis of possible left lower lobe pneumonia, and hypoxemic respiratory failure. Currently, the patient is on BiPAP, with settings of 12/6, and 70%. He has no IV fluids running at this time. He did test positive for coronavirus. He does have a history of lung cancer, adenocarcinoma. The only labs today include glucose of 110. Chest x-ray from March 24, shows a small to moderate-sized left pleural effusion, with increased small right pleural effusion. There is also some right lower lung consolidation. Progress note dated 03/26/2023. 73-year-old male admitted on March 24, with a diagnosis of possible left lower lobe pneumonia and hypoxemic respiratory failure. The patient is currently on AIRVO, with settings of 60 L/m and an FiO2 of 90%. He's not receiving any IV fluids. A chest x-ray is ordered for March 27. The only lab today with a glucose of 111. Clinically, the patient's doing about the same. Blood cultures are currently negative. Progress note dated 03/27/2023. The patient is seen today in room 368. He continues on AIRVO, with settings of 60 L/m, with an FiO2 of 90%. The chest x-ray done today, shows worsening infiltrates. Clinically, the patient appears reasonably stable. White count 18.6, hemoglobin 10.8, hematocrit 46.2, and platelet count was normal. Sodium 139, potassium 4.6, chlorides 96, CO2 39, BUN 18, and creatinine 0.48. Blood cultures are negative. Chest x-ray shows bilateral pleural/parenchymal opacities, left greater than right. Radiologist feels there may be some improvement. Progress note dated 03/28/2023. This is a 74-year-old male seen in room 368. The patient continues on AIRVO, at 60 L/m, and an FiO2 of 90%. The patient does feel better. He's not receiving any IV fluids. Labs today include only a glucose of 89. As mentioned yesterday, the chest x-ray, as interpreted by the radiologist, suggests some improvement. Progress note dated 03/29/2023. The patient is seen today in room 368. He continues on AIRVO, at 60 L/m, with an FiO2 of 90%. He is getting D5 with normal saline, at 50 mL an hour. She does feel like he is getting better. He looks relatively stable, and his respiratory status, despite being on AIRVO, appears stable. White count is 15.2, with a normal hemoglobin, hematocrit, and platelet count. Sodium 140, potassium 4.4, chlorides 99, CO2 39, BUN 25, and creatinine 0.43. Progress note dated 03/30/2023. The patient is seen today in room 368. He is on AIRVO, with settings of 60 L/m, for flow rate, and an FiO2, that has been dropped down to 80%. The patient continues on saline at 75 mL an hour. Chest x-ray ordered for tomorrow, March 31. No new labs today, other than a glucose of 99. 04/06 2023, no major improvement and the patient remains on high flow oxygen at 60 L an FiO2 of 70%. Continues to be on Decadron. Continues to be on cefepime. Most recent chest x-ray from 04/05/2023 showed stable findings. He is a DNR/DNI CODE STATUS. The patient is seen today 04/07/2023 in follow-up on the selective care unit. He is currently sitting up in bed. He is quite weak and debilitated. He continues to require AirVo high flow oxygen at 60 L and 70% FiO2 with O2 saturation in the 90s. Sputum culture was positive for Enterobacter aerogenes. The cultures revealed no growth. Blood sugar 135. He remains on Symbicort, albuterol, Decadron and vitamin supplements. Heparin for DVT prophylaxis. Antibiotics in the form of cefepime. Family is considering comfort care/hospice. The patient is seen today 04/08/2023 in follow-up on the selective care unit. He is awake. Quite weak and debilitated. He remains on AirVo high flow oxygen at 60 L and 70% FiO2. Sputum culture was positive for Enterobacter aerogenes. Blood cultures revealed no growth. Glucose 113. He is continued on Symbicort, albuterol, vitamin supplements. She remains on Decadron. Antibiotics in the form of cefepime. Remains on diuretics. Currently in a negative balance. The patient is seen today 04/09/2023 in follow-up on the selective care unit. He remains awake and alert. Resting in bed. Still requiring AirVo high flow nasal cannula at 60 L and 65% FiO2. Sputum culture positive for Enterobacter aerogenes. Blood cultures reveal no growth. White count 18.4. Hemoglobin 12.8. Platelets 143. Sodium 136. Potassium 4.8. Bicarb. 9. BUN 49. Creatinine 0.40. AST 46. ALT 108. Albumin 2.9. He is continued on Symbicort, albuterol, vitamin supplements. She remains on Decadron. Antibiotics in the form of cefepime. Remains on diuretics. The patient is seen today 04/13/2023 in follow-up on the selective care unit. He is sitting up in a chair at the bedside. Awake and alert in no acute distress. Is currently on 9 L high flow nasal cannula with O2 saturations in the 90s. He's been afebrile. Hemodynamically stable. Sputum culture was positive for Enterobacter aerogenes. Blood cultures reveal no growth. Sodium 136. Potassium 4.5. Bicarb 38. BUN 49. Creatinine 0.52. Glucose 129. He is continued on Symbicort, albuterol, Decadron. Heparin for DVT prophylaxis. Remains on vitamin supplements. Progress note dated 04/14/2023. The patient is seen today in room 368. The patient has not been in the hospital for 22 days. Currently, the patient remains on saline at 50 mL an hour, and nasal cannula high flow, at 9 L. The patient is a DO NOT RESUSCITATE patient. The patient is very frail and weak appearing. Labs today include a sodium 138, potassium 4.4, chlorides 96, CO2 39, BUN 55, and creatinine 0.6. Chest x-ray shows a left multifocal airspace opacity, and stable trace bilateral effusions. The chest x-rays essentially unchanged. Objective - Vital Signs Vital signs: Vital Signs Temp 97.9 F 04/14/23 12:00 Pulse 108 H 04/14/23 12:00 Resp 28 H 04/14/23 12:00 BP 88/52 04/14/23 12:00 Pulse Ox 91 L 04/14/23 12:00 FiO2 66 04/09/23 08:18 Intake & Output 04/13/23 04/14/23 04/14/23 18:59 06:59 18:59 Intake Total 354 Output Total 1300 300 200 Balance -946 -300 -200 Weight 74.389 kg Intake: Oral 354 Output: Urine 1300 300 200 Other: Voiding Method Urinal Urinal Urinal # Bowel Movements 1 - Exam No acute distress, oriented 3. The patient is on high flow nasal cannula 9 L/m. HEENT examination is grossly unremarkable. Neck supple. Full range of motion. No adenopathy thyromegaly or neck vein distention. Cardiovascular examination reveals regular rhythm rate. S1-S2 normal. No S3 or S4. No discernible murmur noted. Heart rate 100 beats per sounds are distant. Lungs reveal scattered rhonchi, with a few scattered bibasilar crackles. No wheezes. Breath sounds are equal bilaterally. Saturations are 91% on high flow nasal cannula. Abdomen soft bowel sounds are heard. No masses or tenderness. Extremities are intact. No cyanosis clubbing or edema. Skin is without rash or lesion. Neurologic examination is brief but nonfocal. - Labs CBC & Chem 7: 04/13/23 10:45 04/14/23 08:18 Labs: Abnormal Lab Results - Last 24 Hours (Table) 04/14/23 Range/Units 08:18 Chloride 96 L (98-107) mmol/L Carbon Dioxide 39 H (22-30) mmol/L BUN 55 H (9-20) mg/dL Creatinine 0.60 L (0.66-1.25) mg/dL Glucose 106 H (74-99) mg/dL Assessment and Plan Assessment: Acute hypoxemic respiratory failure secondary to recurrent/persistent left lower lobe pneumonia. Chest x-ray on arrival demonstrates worsening opacities within the left mid and lower lung zones compared to his recent imaging. There was also suspected right lower lung atelectasis, and trace to small bilateral pleural effusions. Also, did test positive for COVID-19, possibly an incidental finding. The patient has also Enterobacter in his sputum and patchy infiltrates are seen in the left upper lobe and the left lower lobe. Rule out malignancy/primary bronchogenic carcinoma. Rule out bacterial infection/pneumonia as the patient was found to have Enterobacter in his sputum. In addition, he has advanced COPD, and a malignant left-sided pleural effusion. No major interval change in his overall condition and oxygenation. The patient remains on Decadron. Repeat chest x-ray from 04/05/2023 shows a stable peripheral left lung pulmonary infiltrate and small bilateral pleural effusions. The patient continues to require 9 L high flow nasal cannula to maintain a oxygenation saturation above 90%. Leukocytosis, secondary to above. Acute COPD exacerbation, secondary to above. Recent diagnosis of metastatic pulmonary adenocarcinoma based on pleural fluid cytology from a left-sided thoracentesis 03/11/23. History of right apical lung nodule measuring 10 x 7 mm June,. Benign essential hypertension. Hyperlipidemia. GERD. Chronic ongoing tobacco dependence. Plan: Plan dated 03/25/2023. The patient's labs, x-rays, and medications are all reviewed. The patient goes between BiPAP, in the AIRVO, for respiratory support. He is currently a full code. The patient's antibiotics and other medications will be continued. Oncology will be consulted. The patient will continue with DVT and GI prophylaxis. The patient's overall prognosis remains very guarded given all of his medical issues. We will continue to follow make recommendations along the way. The patient remains on antibiotics. Plan dated 03/26/2023. The patient is seen today in room 368. The patient remains on AIRVO at the current time, at 60 L/m, with an FiO2 of 90%. The patient remains a full code. A chest x-ray will be ordered for March 27. Labs, x-rays, and medications are reviewed. The patient remains on albuterol, Symbicort, and Decadron, and the patient's also on vitamin C, vitamin D3, and zinc. We will continue to follow make recommendations along the way. Prognosis is guarded. Plan dated 03/27/2023. The patient is seen again in room 368. Clinically, he appears relatively stable, even though he is on AIRVO and 60 L/m, with an FiO2 of 90%. The patient remains a full code. Labs, x-rays, medications are reviewed. The patient continues on appropriate medications including albuterol inhaler, Symbicort inhaler, Decadron, vitamin C, vitamin D3, and zinc. Additional recommendations and suggestions are forthcoming. Prognosis is guarded. The chest x-ray, according to the radiologist, may be slightly improved. Plan dated 03/28/2023. The patient is seen today in room 368. He continues on AIRVO, at 60 L/m, with an FiO2 of 90%. His saturations ranged from 90% as a low, up to 95% has a high. Labs, x-rays, and medications are reviewed. The patient continues on appropriate medications. The chest x-ray dated March 27, apparently is read/ interpreted by the radiologist showing improvement. I thought there was no significant change. Patient continues on appropriate medications including bronchodilators, steroids, and vitamins. Prognosis is certainly guarded. Plan dated 03/29/2023. The patient appears to be doing reasonably well. When asked, the patient feels like he is getting better. Labs, x-rays, and medications are reviewed. The patient's currently on albuterol inhaler, vitamins, Symbicort, and Decadron. We will continue to follow make recommendations along the way. Prognosis is certainly guarded, given his need for higher concentrations of oxygen. Plan dated 03/30/2023. The patient's labs, x-rays, and medications are reviewed. He'll follow-up x- rays ordered for tomorrow, March 31. The patient continues on saline at 75 mL an hour. Currently, he is on AIRVO, at 60 L/m for a flow rate, and FiO2 of 80%. On those settings, her saturations are 98%, which is an improvement. Additional recommendations and suggestions are forthcoming. We will continue to follow and make recommendations along the way. Plan dated 04/14/2023. The patient is seen today in room 368. He continues on high flow nasal cannula. He is currently a DO NOT RESUSCITATE patient. I saw him last back on March 30, and he looks weaker, and more frail appearing. Labs, x-rays, and medications are reviewed. The patient's medications are reviewed and are appropriate. Prognosis is certainly very guarded. Time with Patient: Less than 30
[2023-04-14] MEDS: DEXTROSE 5%-0.9% NACL 1,000 ML IV SCH (14:23)
--- NOTE | 2023-04-14 15:31 | P.PN ---
Subjective Progress Note Date: 04/14/23 HISTORY OF PRESENT ILLNESS: This is a 73-year-old male with a past medical history significant for COPD, hypertension, hyperlipidemia, metastatic pulmonary adenocarcinoma, and nicotine dependence. 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 We have been asked to see the patient in consultation for abnormal EKG with ST elevation. Patient examined at the bedside. Patient is admitted to the hospital secondary to pneumonia and acute respiratory failure. Patient is also positive for Covid. Patient had any EKG completed yesterday evening revealing ST elevation. Patient's primary physician, Dr. Nichols, was contacted and a routine consult to cardiology was placed. However, cardiology was not notified of this consultation until this morning. Patient denies having any chest pain or pressure. He reports mild shortness of breath. He remains on high flow nasal cannula to maintain oxygen saturations greater than 92%. * EKG reveals sinus mechanism with diffuse ST elevation * Chest xray patchy left perihilar and peripheral infiltrate persist with pleural thickening. Right basilar atelectasis or additional infiltrate * Laboratory data: WBC 26.8. Hemoglobin 11.9. Platelet count 162. Sodium 137. Potassium 4.7. BUN 60. Creatinine 0.49. Troponin negative 1. * Current home cardiac medications include Ziac 56.25 mg daily, simvastatin 40 mg at night, amlodipine-Benzapril 10-20mg daily, lisinopril 20 mg daily 04/12/2023 Patient examined this morning at the bedside. Patient denies chest pain or pressure. He currently denies shortness of breath. However, he remains on high flow nasal cannula at 12 L. Echocardiogram completed revealing ejection fraction 50-55% with mild aortic stenosis. Blood pressure remains borderline. Most recent blood pressure 91/61. 04/14 Patient's oxygen was decreased to 6 L over the past 24 hours but this morning patient developed hypoxia was increased back to 9 L nasal cannula. Noted the patient was started on midodrine but he has been continued on Bisoprolol/HCTZ which will be discontinued and monitor blood pressure. His blood pressure today is 88/52. Heart rate is in the 108 216 range. PHYSICAL EXAM: VITAL SIGNS: Reviewed. GENERAL: Well-developed in no acute distress. HEENT: Head is normocephalic. Pupils are equal, round. Sclerae anicteric. No JVD or thyromegaly LUNGS: Lungs with bilateral rhonchi. HEART: Regular rate and rhythm. Distant heart sounds. ABDOMEN: Soft. Nondistended. Nontender. EXTREMITIES: No clubbing or cyanosis. Peripheral pulses intact. No lower extremity edema NEUROLOGIC: Awake and alert. Oriented x 3. ASSESSMENT: Acute hypoxic respiratory failure Pneumonia Acute Covid 19 infection Leukocytosis EKG with diffuse ST elevation, possible myocarditis Hypertension, currently hypotensive Hyperlipidemia Nicotine dependence PLAN: Continue current cardiac medications Discontinue Bisoprolol/HCTZ Continue with conservative management at this time Further recommendations pending patient's course Nurse practitioner note has been reviewed by physician. Signing provider agrees with the documented findings, assessment, and plan of care. Objective - Vital Signs Vital signs: Vital Signs Temp 98.2 F 04/13/23 20:00 Pulse 90 04/14/23 04:00 Resp 20 04/14/23 04:00 BP 97/54 04/14/23 04:00 Pulse Ox 90 L 04/14/23 07:54 FiO2 66 04/09/23 08:18 Intake & Output 04/13/23 04/14/23 04/14/23 18:59 06:59 18:59 Intake Total 354 Output Total 1300 300 Balance -946 -300 Intake: Oral 354 Output: Urine 1300 300 Other: Voiding Method Urinal Urinal # Bowel Movements 1 - Labs CBC & Chem 7: 04/13/23 10:45 04/14/23 08:18 Labs: Abnormal Lab Results - Last 24 Hours (Table) 04/13/23 04/13/23 Range/Units 10:45 10:45 WBC 24.7 H (3.8-10.6) k/uL RBC 3.98 L (4.30-5.90) m/uL Hgb 11.6 L (13.0-17.5) gm/dL Hct 36.5 L (39.0-53.0) % Neutrophils # 23.6 H (1.3-7.7) k/uL Lymphocytes # 0.2 L (1.0-4.8) k/uL Sodium 136 L (137-145) mmol/L Carbon Dioxide 38 H (22-30) mmol/L BUN 49 H (9-20) mg/dL Creatinine 0.52 L (0.66-1.25) mg/dL Glucose 129 H (74-99) mg/dL
[2023-04-14] MEDS: FUROSEMIDE 40 MG TAB PO SCH (17:09)
--- NOTE | 2023-04-14 18:01 | P.PN ---
Subjective Progress Note Date: 04/14/23 Principal diagnosis: recently diagnosed with metastatic adenocarcinoma of the lung, admitted with Covid 19 infection Patient recently admitted with:Covid 19 infection, recently diagnosed with bronchogenic carcinoma recent culture demonstrates Enterobacter lungs IV antibiotic therapy was initiated I Dr. Nguyen 04/01/2023 Patient is awake alert oriented 3 vital signs are stable patient is still on BiPAP\HI-Flow oxygen patient's but has Enterobacter in the lungs was started on IV antibiotics slow to improve 04/02/2023 [place] alert oriented 3 vital signs are stable, known history of COPD, known history of hypertension, known history of hyperlipidemia recently diagnosed with adenocarcinoma of the lung, patient's is currently on BiPAP FiO2 of 60%. Currently on Zosyn and azithromycin 04/03/2023 Patient is awake alert oriented 3, this patient is very hard of hearing, he is also on continuous BiPAP, and he can't hear conversations above the noise of the machine. Known history of COPD known history of hypertension on history of hyperlipidemia recently diagnosed with adenocarcinoma of the lung patient is currently on BiPAP with an FiO2 of 60% still currently on Zosyn and erythromycin still. Had conversation with the dietitian, and the nurse patient's dietary in take was minimal we started him on narrow no 2.5 mg to reduce nausea and enhance appetite will continue to follow 04/04/2023 patient is awake alert oriented 3 currently on continuous BiPAP , started patient on Marinol yesterday oral intake is improving. Patient's lungs started sounding wet stopped fluids his IV is kvo, 80mg of Lasix given, outputs almost immediately improved we'll continue to follow progress, patient is currently on BiPAP FiO2 still 60% currently on Zosyn and erythromycin. 04/05/2023 Patient is awake alert oriented 3 currently on high flow oxygen FiO2 90%, family meeting with pulmonary noted, patient's new CODE STATUS DNR/DNI noted and appreciated, plan at this time is to progress towards discharge Known malignant left effusion, known COPD secondary to cigarette smoking, patient experiencing acute on chronic respiratory failure secondary to COVID- 19/pneumonia superimposed on COPD 04/06/2023 Pt is awake alert oriented x 3, vss pt is afebrile, currently on high flow 02 70%, decadron, cefepime, recent cxr stable , prognosis is poor, pt is DNR/DNI code status 04/14/2023 Pt is awake, alert, oriented x 3, vss, this pt is afebrile, nasal cannula high flow O2 9l, pt is DNR/DNI, cxr unchanged. prognosis poor Objective - Vital Signs Vital signs: Vital Signs Temp 97.9 F 04/14/23 12:00 Pulse 108 H 04/14/23 14:00 Resp 28 H 04/14/23 12:00 BP 88/52 04/14/23 12:00 Pulse Ox 92 L 04/14/23 15:24 FiO2 66 04/09/23 08:18 Intake & Output 04/13/23 04/14/23 04/14/23 18:59 06:59 18:59 Intake Total 354 Output Total 1300 300 550 Balance -946 -300 -550 Weight 74.389 kg Intake: Oral 354 Output: Urine 1300 300 550 Other: Voiding Method Urinal Urinal Urinal # Bowel Movements 1 - Exam General: [Patient awake, alert and oriented times 3. Patient in no acute distress.] Neck: [No adenopathy.] Cardiac: [Heart regular in rate and rhythm. No S3. No S4. No clicks, rubs. No murmur.] Lungs:diminished breath sounds bilaterally, scattered rhonchi Abdomen: [No mass. No organomegaly. Bowel sounds presnt and normoactive in all 4 quadrants.] Extremes: [No edema no cyanosis no claudication normal pulses] : normal male genetalia Musculoskeletal: [No joint erythema, edema or tenderness.] Skin: [No rash.] Neurologic: [No lateralizing deficits. CN II - XII grossly intact.] Lymphatic: [No adenopathy.] - Labs CBC & Chem 7: 04/13/23 10:45 04/14/23 08:18 Labs: Abnormal Lab Results - Last 24 Hours (Table) 04/14/23 Range/Units 08:18 Chloride 96 L (98-107) mmol/L Carbon Dioxide 39 H (22-30) mmol/L BUN 55 H (9-20) mg/dL Creatinine 0.60 L (0.66-1.25) mg/dL Glucose 106 H (74-99) mg/dL Assessment and Plan (1) Acute respiratory failure with hypoxia Current Visit: Yes Status: Acute Code(s): J96.01 - ACUTE RESPIRATORY FAILURE WITH HYPOXIA SNOMED Code(s): 74325940 (2) COPD (chronic obstructive pulmonary disease) Current Visit: Yes Status: Acute Code(s): J44.9 - CHRONIC OBSTRUCTIVE PULMONARY DISEASE, UNSPECIFIED SNOMED Code(s): 40633420 (3) COVID-19 Current Visit: Yes Status: Acute Priority: High Code(s): U07.1 - COVID-19 SNOMED Code(s): 566822527 (4) Pneumonia Current Visit: Yes Status: Acute Priority: High Code(s): J18.9 - PNEUMONIA, UNSPECIFIED ORGANISM SNOMED Code(s): 976652651 (5) Acute and chronic respiratory failure ([id number]) Current Visit: No Status: Acute Code(s): J96.20 - ACUTE AND CHR RESP FAILURE, UNSP W HYPOXIA OR HYPERCAPNIA SNOMED Code(s): 38165217 (6) Adenocarcinoma of lung Current Visit: Yes Status: Acute Priority: High Code(s): C34.90 - MALIGNANT NEOPLASM OF UNSP PART OF UNSP BRONCHUS OR LUNG SNOMED Code(s): 727815548 (7) Atherosclerosis of abdominal aorta Current Visit: No Status: Acute Code(s): I70.0 - ATHEROSCLEROSIS OF AORTA SNOMED Code(s): 535107988 Plan: IV kvo pleural effusion, left recent covid 19 infection adenoca lung, copd tobacco dependence BiPAP/high flow oxygen this patient has poor prognosis given his diagnosis and comorbidities Time with Patient: Less than 30
[2023-04-14] MEDS: ATORVASTATIN 20 MG TAB PO SCH (20:27)
[2023-04-15] MEDS: droNABinol 2.5 MG CAP PO SCH (06:16)
[2023-04-15] MEDS: PANTOPRAZOLE 40 MG TABLET PO SCH (06:16)
[2023-04-15] MEDS: MIDODRINE 5 MG TAB PO SCH ×2 (06:16→17:17)
[2023-04-15] MEDS: SODIUM CHLORIDE 0.9% 1,000 ML IV SCH (06:17)
[2023-04-15] MEDS: SYMBICORT 160-4.5 MCG INHALER INHALATION SCH ×2 (07:38→20:51)
[2023-04-15] MEDS: ALBUTEROL HFA INHALER INHALATION SCH ×4 (07:38→20:51)
[2023-04-15] MEDS: ASCORBIC ACID 500 MG TAB PO SCH (10:41)
[2023-04-15] MEDS: HEPARIN SODIUM,PORCINE 5,000 UNIT/ML 1 ML VIAL SQ SCH ×2 (10:41→17:17)
[2023-04-15] MEDS: ASPIRIN 81 MG PO SCH (10:42)
[2023-04-15] MEDS: CHOLECALCIFEROL 25 MCG (1000 IU) TABLET PO SCH (10:42)
[2023-04-15] MEDS: DEXAMETHASONE SOD PHOSPHATE 10 MG/ML 1 ML VIAL IVP SCH (10:43)
[2023-04-15] MEDS: ESCITALOPRAM 10 MG TAB PO SCH (10:44)
[2023-04-15] MEDS: DOCUSATE 100 MG CAP PO SCH ×2 (10:44→20:03)
[2023-04-15] MEDS: FAMOTIDINE 20 MG TAB PO SCH (10:45)
[2023-04-15] MEDS: guaiFENesin 600 MG TABLET.ER PO SCH ×2 (10:46→20:03)
[2023-04-15] MEDS: ZINC SULFATE 220 MG CAP PO SCH (10:47)
[2023-04-15] MEDS: POTASSIUM CHLORIDE ER 10 MEQ TAB.ER.PRT PO SCH (10:47)
[2023-04-15] MEDS: FUROSEMIDE 40 MG TAB PO SCH (10:47)
[2023-04-15] MEDS: DEXTROSE 5%-0.9% NACL 1,000 ML IV SCH (11:55)
--- NOTE | 2023-04-15 13:24 | P.PN ---
Subjective Progress Note Date: 04/15/23 Principal diagnosis: Stage IV NSCLC In f/u today pt Is on 8 L nasal cannula, reports easy fatigue, shortness of breath with exertion, denies pain Objective - Vital Signs Vital signs: Vital Signs Temp 98.3 F 04/15/23 11:03 Pulse 101 H 04/15/23 11:03 Resp 20 04/15/23 11:03 BP 92/61 04/15/23 11:03 Pulse Ox 91 L 04/15/23 12:35 FiO2 66 04/09/23 08:18 Intake & Output 04/14/23 04/15/23 04/15/23 18:59 06:59 18:59 Intake Total 600 Output Total 550 1000 Balance 50 -1000 Weight 74.389 kg Intake: Intake, IV Titration 600 Amount Sodium Chloride 0.9% 1, 600 000 ml @ 75 mls/hr IV . [id number] [facility] Rx#:[id number] Output: Urine 550 1000 Other: Voiding Method Urinal Urinal - Constitutional General appearance: Present: average body habitus, cooperative, no acute distres s - EENT Eyes: Present: anicteric sclerae, EOMI ENT: Present: hearing grossly normal - Respiratory Respiratory: bilateral: rhonchi - Cardiovascular Rhythm: regular - Neurologic Neurologic: Present: CNII-XII intact - Musculoskeletal Musculoskeletal: Present: generalized weakness - Psychiatric Psychiatric: Present: A&O x's 3, appropriate affect, intact judgment & insight - Labs CBC & Chem 7: 04/13/23 10:45 04/14/23 08:18 Assessment and Plan (1) Adenocarcinoma of lung Current Visit: Yes Status: Acute Priority: High Code(s): C34.90 - MALIGNANT NEOPLASM OF UNSP PART OF UNSP BRONCHUS OR LUNG SNOMED Code(s): 334356422 Plan: Stage IV NSCLC -02/2023 pleural fluid on the left + for adenocarcinoma -Unable to have staging PET Due to prolonged hospitalization admission for Covid infection. -NGS showed no actionable mutation, PD-L1 was <1%, microsatellite instability was intermediate, TMB low. -Onc recommendations for treatment would be dual IO therapy but, based on pt current PS (2-3), he is not a candidate for treatment at this time -Pending pt progress and recovery from acute resp illness for further recommendations regarding treatment from Oncology -F/U with Medical Onc after rehab. Will plan for staging PET scan if pt and family are planning on pursuing treatment of stage IV malignancy
--- NOTE | 2023-04-15 13:56 | P.PN ---
Subjective Progress Note Date: 04/15/23 Principal diagnosis: Hypoxemic respiratory failure. I am seeing this patient in new consultation today 03/24/2023 for suspected left lower lobe pneumonia. Patient is a 73-year-old white male with past medical history significant for recent admission with left lower lobe pneumonia, discharged on March 17. During this admission, the patient was also found to have metastatic adenocarcinoma of the lung based on pleural fluid cytology from a left sided thoracentesis. He also has history of COPD, hypertension, hyperlipidemia, GERD, and ongoing chronic tobacco dependence. Patient is known to have a 10 mm x 7mm right upper lung nodule, originally seen back in June,. His PCP is Dr. Nichols. Chest CT from his most recent admission, March 07, demonstrated a right upper lung bronchus large airway occlusion concerning for obstructive mass. There was also a loculated left pleural effusion with left lung consolidation. The patient was treated with IV antibiotics and discharged home on Augmentin. He was established with an oncologist, and is reportedly going to undergo a PET scan outpatient. Patient returned to the emergency room last night, reporting that he's had ongoing progressively worsening shortness of breath since discharge. He admits an associated nonproductive cough. Denies any fever, chills, myalgias, hemoptysis. Denies any chest pain, palpitations, lower extremity edema, syncope. A chest x-ray done on arrival, showed worsening airspace opacities within the left mid and lower lung zones compared to prior imaging. There was also suspected right lower lung atelectasis, and trace to small bilateral pleural effusions. Patient did test positive for COVID-19, possibly an incidental finding. Patient is currently sitting up in bed, on BiPAP with settings 12/6 and FiO2 of 60%. Appears fairly comfortable. Respiratory rate is high 20s to low 30s and is achieving tidal volumes around 400. CBC on arrival shows leukocytosis with WBC count of 16.9, hemoglobin 14.7, hematocrit 45.4, platelets 150. BMP shows sodium 133, potassium 4.1, chloride 92, serum bicarbonate 39, BUN 17, creatinine 0.43, glucose 99. Currently receiving normal saline at 100 ML's per hour. He was started on empiric Zosyn and azithromycin. Currently afebrile. Also receiving Ventolin HFA, Symbicort inhaler, and IV Decadron. Patient is being monitored closely on the cardiac stepdown unit. Progress note dated 03/25/2023. 73-year-old male admitted on March 24, with a diagnosis of possible left lower lobe pneumonia, and hypoxemic respiratory failure. Currently, the patient is on BiPAP, with settings of 12/6, and 70%. He has no IV fluids running at this time. He did test positive for coronavirus. He does have a history of lung cancer, adenocarcinoma. The only labs today include glucose of 110. Chest x-ray from March 24, shows a small to moderate-sized left pleural effusion, with increased small right pleural effusion. There is also some right lower lung consolidation. Progress note dated 03/26/2023. 73-year-old male admitted on March 24, with a diagnosis of possible left lower lobe pneumonia and hypoxemic respiratory failure. The patient is currently on AIRVO, with settings of 60 L/m and an FiO2 of 90%. He's not receiving any IV fluids. A chest x-ray is ordered for March 27. The only lab today with a glucose of 111. Clinically, the patient's doing about the same. Blood cultures are currently negative. Progress note dated 03/27/2023. The patient is seen today in room 368. He continues on AIRVO, with settings of 60 L/m, with an FiO2 of 90%. The chest x-ray done today, shows worsening infiltrates. Clinically, the patient appears reasonably stable. White count 18.6, hemoglobin 10.8, hematocrit 46.2, and platelet count was normal. Sodium 139, potassium 4.6, chlorides 96, CO2 39, BUN 18, and creatinine 0.48. Blood cultures are negative. Chest x-ray shows bilateral pleural/parenchymal opacities, left greater than right. Radiologist feels there may be some improvement. Progress note dated 03/28/2023. This is a 74-year-old male seen in room 368. The patient continues on AIRVO, at 60 L/m, and an FiO2 of 90%. The patient does feel better. He's not receiving any IV fluids. Labs today include only a glucose of 89. As mentioned yesterday, the chest x-ray, as interpreted by the radiologist, suggests some improvement. Progress note dated 03/29/2023. The patient is seen today in room 368. He continues on AIRVO, at 60 L/m, with an FiO2 of 90%. He is getting D5 with normal saline, at 50 mL an hour. She does feel like he is getting better. He looks relatively stable, and his respiratory status, despite being on AIRVO, appears stable. White count is 15.2, with a normal hemoglobin, hematocrit, and platelet count. Sodium 140, potassium 4.4, chlorides 99, CO2 39, BUN 25, and creatinine 0.43. Progress note dated 03/30/2023. The patient is seen today in room 368. He is on AIRVO, with settings of 60 L/m, for flow rate, and an FiO2, that has been dropped down to 80%. The patient continues on saline at 75 mL an hour. Chest x-ray ordered for tomorrow, March 31. No new labs today, other than a glucose of 99. 04/06 2023, no major improvement and the patient remains on high flow oxygen at 60 L an FiO2 of 70%. Continues to be on Decadron. Continues to be on cefepime. Most recent chest x-ray from 04/05/2023 showed stable findings. He is a DNR/DNI CODE STATUS. The patient is seen today 04/07/2023 in follow-up on the selective care unit. He is currently sitting up in bed. He is quite weak and debilitated. He continues to require AirVo high flow oxygen at 60 L and 70% FiO2 with O2 saturation in the 90s. Sputum culture was positive for Enterobacter aerogenes. The cultures revealed no growth. Blood sugar 135. He remains on Symbicort, albuterol, Decadron and vitamin supplements. Heparin for DVT prophylaxis. Antibiotics in the form of cefepime. Family is considering comfort care/hospice. The patient is seen today 04/08/2023 in follow-up on the selective care unit. He is awake. Quite weak and debilitated. He remains on AirVo high flow oxygen at 60 L and 70% FiO2. Sputum culture was positive for Enterobacter aerogenes. Blood cultures revealed no growth. Glucose 113. He is continued on Symbicort, albuterol, vitamin supplements. She remains on Decadron. Antibiotics in the form of cefepime. Remains on diuretics. Currently in a negative balance. The patient is seen today 04/09/2023 in follow-up on the selective care unit. He remains awake and alert. Resting in bed. Still requiring AirVo high flow nasal cannula at 60 L and 65% FiO2. Sputum culture positive for Enterobacter aerogenes. Blood cultures reveal no growth. White count 18.4. Hemoglobin 12.8. Platelets 143. Sodium 136. Potassium 4.8. Bicarb. 9. BUN 49. Creatinine 0.40. AST 46. ALT 108. Albumin 2.9. He is continued on Symbicort, albuterol, vitamin supplements. She remains on Decadron. Antibiotics in the form of cefepime. Remains on diuretics. The patient is seen today 04/13/2023 in follow-up on the selective care unit. He is sitting up in a chair at the bedside. Awake and alert in no acute distress. Is currently on 9 L high flow nasal cannula with O2 saturations in the 90s. He's been afebrile. Hemodynamically stable. Sputum culture was positive for Enterobacter aerogenes. Blood cultures reveal no growth. Sodium 136. Potassium 4.5. Bicarb 38. BUN 49. Creatinine 0.52. Glucose 129. He is continued on Symbicort, albuterol, Decadron. Heparin for DVT prophylaxis. Remains on vitamin supplements. Progress note dated 04/14/2023. The patient is seen today in room 368. The patient has not been in the hospital for 22 days. Currently, the patient remains on saline at 50 mL an hour, and nasal cannula high flow, at 9 L. The patient is a DO NOT RESUSCITATE patient. The patient is very frail and weak appearing. Labs today include a sodium 138, potassium 4.4, chlorides 96, CO2 39, BUN 55, and creatinine 0.6. Chest x-ray shows a left multifocal airspace opacity, and stable trace bilateral effusions. The chest x-rays essentially unchanged. Progress note dated 04/15/2023. The patient is seen today in room 368. Currently, the patient appears to be doing slightly bit better. The patient is currently on saline at 50 mL an hour, and is getting a liters oxygen, high flow. Awake and alert, sitting upright in bed. The nurses are in the room with him. He states that his breathing is improved. She does have a bit of a wet/congested cough. No new labs today. The chest x-ray from April 14 has been reviewed. Objective - Vital Signs Vital signs: Vital Signs Temp 98.3 F 04/15/23 11:03 Pulse 101 H 04/15/23 11:03 Resp 20 04/15/23 11:03 BP 92/61 04/15/23 11:03 Pulse Ox 91 L 04/15/23 12:35 FiO2 66 04/09/23 08:18 Intake & Output 04/14/23 04/15/23 04/15/23 18:59 06:59 18:59 Intake Total 600 Output Total 550 1000 Balance 50 -1000 Weight 74.389 kg Intake: Intake, IV Titration 600 Amount Sodium Chloride 0.9% 1, 600 000 ml @ 75 mls/hr IV . [id number] [facility] Rx#:[id number] Output: Urine 550 1000 Other: Voiding Method Urinal Urinal - Exam No acute distress, oriented 3. The patient is on high flow nasal cannula 8 L/m. HEENT examination is grossly unremarkable. Neck supple. Full range of motion. No adenopathy thyromegaly or neck vein distention. Cardiovascular examination reveals regular rhythm rate. S1-S2 normal. No S3 or S4. Heart rate is 101 bpm. Heart sounds are distant. Lungs reveal scattered rhonchi, with a few scattered bibasilar crackles. No wheezes. Breath sounds are equal bilaterally. Saturations are 91% on 8 liter high flow nasal cannula. Abdomen soft bowel sounds are heard. No masses or tenderness. Extremities are intact. No cyanosis clubbing or edema. Skin is without rash or lesion. Neurologic examination is brief but nonfocal. - Labs CBC & Chem 7: 04/13/23 10:45 04/14/23 08:18 Assessment and Plan Assessment: Acute hypoxemic respiratory failure secondary to recurrent/persistent left lower lobe pneumonia. Chest x-ray on arrival demonstrates worsening opacities within the left mid and lower lung zones compared to his recent imaging. There was also suspected right lower lung atelectasis, and trace to small bilateral pleural effusions. Also, did test positive for COVID-19, possibly an incidental finding. The patient has also Enterobacter in his sputum and patchy infiltrates are seen in the left upper lobe and the left lower lobe. Rule out malignancy/primary bronchogenic carcinoma. Rule out bacterial infection/pneumonia as the patient was found to have Enterobacter in his sputum. In addition, he has advanced COPD, and a malignant left-sided pleural effusion. No major interval change in his overall condition and oxygenation. The patient remains on Decadron. Repeat chest x-ray from 04/05/2023 shows a stable peripheral left lung pulmonary infiltrate and small bilateral pleural effusions. The patient continues to require 9 L high flow nasal cannula to maintain a oxygenation saturation above 90%. Leukocytosis, secondary to above. Acute COPD exacerbation, secondary to above. Recent diagnosis of metastatic pulmonary adenocarcinoma based on pleural fluid cytology from a left-sided thoracentesis 03/11/23. History of right apical lung nodule measuring 10 x 7 mm June,. Benign essential hypertension. Hyperlipidemia. GERD. Chronic ongoing tobacco dependence. Plan: Plan dated 03/25/2023. The patient's labs, x-rays, and medications are all reviewed. The patient goes between BiPAP, in the AIRVO, for respiratory support. He is currently a full code. The patient's antibiotics and other medications will be continued. Oncology will be consulted. The patient will continue with DVT and GI prophylaxis. The patient's overall prognosis remains very guarded given all of his medical issues. We will continue to follow make recommendations along the way. The patient remains on antibiotics. Plan dated 03/26/2023. The patient is seen today in room 368. The patient remains on AIRVO at the current time, at 60 L/m, with an FiO2 of 90%. The patient remains a full code. A chest x-ray will be ordered for March 27. Labs, x-rays, and medications are reviewed. The patient remains on albuterol, Symbicort, and Decadron, and the patient's also on vitamin C, vitamin D3, and zinc. We will continue to follow make recommendations along the way. Prognosis is guarded. Plan dated 03/27/2023. The patient is seen again in room 368. Clinically, he appears relatively stable, even though he is on AIRVO and 60 L/m, with an FiO2 of 90%. The patient remains a full code. Labs, x-rays, medications are reviewed. The patient continues on appropriate medications including albuterol inhaler, Symbicort inhaler, Decadron, vitamin C, vitamin D3, and zinc. Additional recommendations and suggestions are forthcoming. Prognosis is guarded. The chest x-ray, according to the radiologist, may be slightly improved. Plan dated 03/28/2023. The patient is seen today in room 368. He continues on AIRVO, at 60 L/m, with an FiO2 of 90%. His saturations ranged from 90% as a low, up to 95% has a high. Labs, x-rays, and medications are reviewed. The patient continues on appropriate medications. The chest x-ray dated March 27, apparently is read/ interpreted by the radiologist showing improvement. I thought there was no significant change. Patient continues on appropriate medications including bronchodilators, steroids, and vitamins. Prognosis is certainly guarded. Plan dated 03/29/2023. The patient appears to be doing reasonably well. When asked, the patient feels like he is getting better. Labs, x-rays, and medications are reviewed. The patient's currently on albuterol inhaler, vitamins, Symbicort, and Decadron. We will continue to follow make recommendations along the way. Prognosis is certainly guarded, given his need for higher concentrations of oxygen. Plan dated 03/30/2023. The patient's labs, x-rays, and medications are reviewed. He'll follow-up x-ra ys ordered for tomorrow, March 31. The patient continues on saline at 75 mL an hour. Currently, he is on AIRVO, at 60 L/m for a flow rate, and FiO2 of 80%. On those settings, her saturations are 98%, which is an improvement. Additional recommendations and suggestions are forthcoming. We will continue to follow and make recommendations along the way. Plan dated 04/14/2023. The patient is seen today in room 368. He continues on high flow nasal cannula. He is currently a DO NOT RESUSCITATE patient. I saw him last back on March 30, and he looks weaker, and more frail appearing. Labs, x-rays, and medications are reviewed. The patient's medications are reviewed and are appropriate. Prognosis is certainly very guarded. Plan dated 04/15/2023. The patient has been weaned down to a liter high flow nasal cannula. The patient is seen today in room 368. He feels better, and feels like his breathing is improved. The patient is a DO NOT RESUSCITATE patient. Labs, x- rays, and medications are reviewed. The patient has been here in the hospital now for 23 days. We will continue to follow make recommendations along the way. Prognosis is certainly guarded. Time with Patient: Less than 30
--- NOTE | 2023-04-15 14:56 | P.PN ---
Subjective Progress Note Date: 04/15/23 HISTORY OF PRESENT ILLNESS: This is a 73-year-old male with a past medical history significant for COPD, hypertension, hyperlipidemia, metastatic pulmonary adenocarcinoma, and nicotine dependence. 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 We have been asked to see the patient in consultation for abnormal EKG with ST elevation. Patient examined at the bedside. Patient is admitted to the hospital secondary to pneumonia and acute respiratory failure. Patient is also positive for Covid. Patient had any EKG completed yesterday evening revealing ST elevation. Patient's primary physician, Dr. Nichols, was contacted and a routine consult to cardiology was placed. However, cardiology was not notified of this consultation until this morning. Patient denies having any chest pain or pressure. He reports mild shortness of breath. He remains on high flow nasal cannula to maintain oxygen saturations greater than 92%. * EKG reveals sinus mechanism with diffuse ST elevation * Chest xray patchy left perihilar and peripheral infiltrate persist with pleural thickening. Right basilar atelectasis or additional infiltrate * Laboratory data: WBC 26.8. Hemoglobin 11.9. Platelet count 162. Sodium 137. Potassium 4.7. BUN 60. Creatinine 0.49. Troponin negative 1. * Current home cardiac medications include Ziac 56.25 mg daily, simvastatin 40 mg at night, amlodipine-Benzapril 10-20mg daily, lisinopril 20 mg daily 04/12/2023 Patient examined this morning at the bedside. Patient denies chest pain or pressure. He currently denies shortness of breath. However, he remains on high flow nasal cannula at 12 L. Echocardiogram completed revealing ejection fraction 50-55% with mild aortic stenosis. Blood pressure remains borderline. Most recent blood pressure 91/61. 04/14 Patient's oxygen was decreased to 6 L over the past 24 hours but this morning patient developed hypoxia was increased back to 9 L nasal cannula. Noted the patient was started on midodrine but he has been continued on Bisoprolol/HCTZ which will be discontinued and monitor blood pressure. His blood pressure today is 88/52. Heart rate is in the 108 216 range. 04/15 Patient is seen today in follow-up. Blood pressure is 92/61, heart rate in the 94-101, telemetry sinus tachycardia. He is on O2 at 8 L with pulse ox at 95%. TSH 0.88. PHYSICAL EXAM: VITAL SIGNS: Reviewed. GENERAL: Well-developed in no acute distress. HEENT: Head is normocephalic. Pupils are equal, round. Sclerae anicteric. No JVD or thyromegaly LUNGS: Lungs with bilateral rhonchi. HEART: Regular rate and rhythm. Distant heart sounds. ABDOMEN: Soft. Nondistended. Nontender. EXTREMITIES: No clubbing or cyanosis. Peripheral pulses intact. No lower extremity edema NEUROLOGIC: Awake and alert. Oriented x 3. ASSESSMENT: Acute hypoxic respiratory failure Pneumonia Acute Covid 19 infection Leukocytosis EKG with diffuse ST elevation, possible myocarditis Hypertension, currently hypotensive Hyperlipidemia Nicotine dependence PLAN: Continue current cardiac medications Discontinue Bisoprolol/HCTZ Continue with conservative management at this time Further recommendations pending patient's course Nurse practitioner note has been reviewed by physician. Signing provider agrees with the documented findings, assessment, and plan of care. Objective - Vital Signs Vital signs: Vital Signs Temp 98.0 F 04/15/23 08:00 Pulse 94 04/15/23 08:00 Resp 12 04/15/23 08:00 BP 95/59 04/15/23 08:00 Pulse Ox 97 04/15/23 08:00 FiO2 66 04/09/23 08:18 Intake & Output 04/14/23 04/15/23 04/15/23 18:59 06:59 18:59 Intake Total 600 Output Total 550 1000 Balance 50 -1000 Weight 74.389 kg Intake: Intake, IV Titration 600 Amount Sodium Chloride 0.9% 1, 600 000 ml @ 75 mls/hr IV . [id number] [facility] Rx#:[id number] Output: Urine 550 1000 Other: Voiding Method Urinal Urinal - Labs CBC & Chem 7: 04/13/23 10:45 04/14/23 08:18
--- NOTE | 2023-04-15 15:37 | P.PN ---
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 Maintained on covid cocktail.Currently maintaining O2 sats in the 90s on airvo flow 60 and Fio2 90. BiPAP at bedside. Reports fatigue, weakness. Afebrile. Pro-calcitonin 0.06. Preliminary blood cultures reporting no growth after 24 hours. Denies chest pain, palpitations. 03/26/2023 maintained on airvo, 60 L FIO2 90%, maintaining O2 sats in the high 80s to low 90s. Mild anxiety. Denies chest pain, palpitations. Afebrile. Preliminary blood cultures reporting no growth after 48 hours. 03/27/2023 Feels better this morning. Received Xanax last night, rested better. Continues on Airvo 60 L, FiO2 90% and maintaining O2 sats in the high 80s to low 90s. Chest x-ray reporting ongoing bilateral pleural personal opacity slough greater than right, possibly slight improvement right base. These Bicarb 39, BUN 18, creatinine 0.48. Hemoglobin 14.8, platelets 168. Preliminary blood cultures reporting no growth after 72 hours. Afebrile. 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 Blood sugars controlled. 03/28/2023 maintained on Airvo 60 L, FiO2 90%, O2 sats fluctuates from high 80s to high 90s. Diet intake poor, consumed 25% of breakfast. Denies nausea, vomiting. Denies abdominal pain. Continues on COvid Cocktail. Afebrile. Preliminary blood cultures reporting no growth after 72 hours. Feels discouraged . 04/07/23 afebrile, continues on cefepime, Decadron. Maintained on airvo 60 L/70% FiO2 maintaining O2 sats in the mid 90s. Diet intake including HS snacks, supplement intake poor, on Marinol. 04/08/2023 continues on airvo 60 L/70% FiO2 maintaining O2 sats in the low 90s. Maintained on antibiotics of cefepime and Covid cocktail. Afebrile. Fatigued. 04/09/2023 . Staff reports mild confusion during the night, resolved this morning. Continues on Marinol, diet intake ranging from 25-50%, usually 0% at breakfast. Borderline hypotension, antihypertensives held. Continues on Airvo 60 L/66% FiO2. Continues on antibiotics, cefepime, diuretics and Covid cocktail, Decadron. Afebrile, WBC 18.4. Hemoglobin 12.8, platelets 143. Sodium 136, potassium 4.8. Bicarb decreased to 39. BUN 49, creatinine 0.4. blood sugars controlled. 04/10/2023 sitting up in chair, remains off of airvo, continues on 15 L high flow nasal cannula, maintaining O2 sats in the low 90s. Borderline hypotension. Chest x-ray reported improving patchy left perihilar and peripheral infiltrate persists with pleural thickening, right basilar atelectasis or additional infiltrate. Maintained on cefepime, afebrile, WBC 18.4. Renal function stable. 04/11/2023 sitting up in chair, she decreased to 13 L high flow nasal cannula maintaining O2 sats in the low 90s. More alert today, Marinol dose decreased yesterday. Significant weakness, barely able to stand without assistance. Continues on Cefepime, Decadron, WBC 26, afebrile. Evaluated by cardiology related to abnormal EKG/ ST elevation, asymptomatic. Denies chest pain, palpitations. 2-D echo ordered. 04/15/2023 maintaining O2 sats in the high 80s to low 90s on 8 L high flow nasal cannula. Afebrile, T-max 99.7. PT reports patient was able to ambulate 10 feet with assist. Denies chest pain, palpitation. Echo completed reporting normal LV function, 50-55%, mild aortic sclerosis without significant aortic stenosis. Objective - Vital Signs Vital signs: Vital Signs Temp 98.3 F 04/15/23 11:03 Pulse 101 H 04/15/23 11:03 Resp 20 04/15/23 11:03 BP 92/61 04/15/23 11:03 Pulse Ox 91 L 04/15/23 12:35 FiO2 66 04/09/23 08:18 Intake & Output 04/14/23 04/15/23 04/15/23 18:59 06:59 18:59 Intake Total 600 Output Total 550 1000 500 Balance 50 -1000 -500 Weight 74.389 kg Intake: Intake, IV Titration 600 Amount Sodium Chloride 0.9% 1, 600 000 ml @ 75 mls/hr IV . [id number] [facility] Rx#:[id number] Output: Urine 550 1000 500 Other: Voiding Method Urinal Urinal - Exam General: Patient awake, alert and oriented times 3, sitting up in chair. Fatigued, recently ambulated 10 feet with PT. On high flow nasal cannula HEENT: Normocephalic, PERRL. EOMI. Neck: supple,No JVD. Cardiac: Regular S1 and S2. No S3. No S4. No clicks, rubs. No murmur. Lungs: Equal air entry Diminished bilateral breath sounds,fine basilar crackles Abdomen: Soft, nontender, no guarding. Positive Bowel sounds. Extremes: [No edema, no cyanosis no claudication normal pulses. Skin: [No rash, warm and dry.] Neurologic: CN II - XII grossly intact. - Labs CBC & Chem 7: 04/13/23 10:45 04/14/23 08:18 Assessment and Plan Assessment: Assessment and Plan (1) Acute respiratory failure with hypoxia Current Visit: Yes Status: Acute Code(s): J96.01 - ACUTE RESPIRATORY FAILURE WITH HYPOXIA SNOMED Code(s): 94266658 (2) COPD (chronic obstructive pulmonary disease) Current Visit: Yes Status: Acute Code(s): J44.9 - CHRONIC OBSTRUCTIVE PULMONARY DISEASE, UNSPECIFIED SNOMED Code(s): 16861244 (3) COVID-19 Current Visit: Yes Status: Acute Code(s): U07.1 - COVID-19 SNOMED Code(s): 002482661 (4) Pneumonia, sputum cultures reporting Enterobacter aerogenes Current Visit: Yes Status: Acute Code(s): J18.9 - PNEUMONIA, UNSPECIFIED ORGANISM SNOMED Code(s): 249768765 (5) Acute and chronic respiratory failure ([id number]) Current Visit: No Status: Acute Code(s): J96.20 - ACUTE AND CHR RESP FAILURE , UNSP W HYPOXIA OR HYPERCAPNIA SNOMED Code(s): 36142432 (6) Adenocarcinoma of lung Current Visit: No Status: Acute Priority: High Code(s): C34.90 - MALIGNANT NEOPLASM OF UNSP PART OF UNSP BRONCHUS OR LUNG SNOMED Code(s): 195562595 (7) Atherosclerosis of abdominal aorta Current Visit: No Status: Acute Code(s): I70.0 - ATHEROSCLEROSIS OF AORTA SNOMED Code(s): 148711259 (8) No code, No CPR, No intubation Plan: Continue on current medication regime ,monitoring and symptomatic treatment. Protein supplements. Maintain cefepime, dexamethasone,bronchodilators. PT. Prognosis guarded given multiple complex medical issues. The impression and plan of care has been dictated as directed. : I performed a history and examination of this patient, discussed the same with the dictator. I agree with the dictator's note ,documented as a scribe. Any additional findings or plans will be noted.
[2023-04-15] MEDS: ALPRAZolam 0.25 MG TAB PO PRN (20:03)
[2023-04-15] MEDS: ATORVASTATIN 20 MG TAB PO SCH (20:04)
[2023-04-16] MEDS: HEPARIN SODIUM,PORCINE 5,000 UNIT/ML 1 ML VIAL SQ SCH ×3 (00:27→16:45)
[2023-04-16] MEDS: SODIUM CHLORIDE 0.9% 1,000 ML IV SCH ×2 (03:00→12:42)
[2023-04-16] MEDS ORDERED: SODIUM CHLORIDE 0.9% 500 ML 500 ML IV ONE (03:05)
[2023-04-16] MEDS: droNABinol 2.5 MG CAP PO SCH (06:58)
[2023-04-16] MEDS: MIDODRINE 5 MG TAB PO SCH ×2 (06:59→16:48)
[2023-04-16] MEDS: PANTOPRAZOLE 40 MG TABLET PO SCH (06:59)
[2023-04-16] MEDS: DEXAMETHASONE SOD PHOSPHATE 10 MG/ML 1 ML VIAL IVP SCH (08:21)
[2023-04-16] MEDS: CHOLECALCIFEROL 25 MCG (1000 IU) TABLET PO SCH (08:21)
[2023-04-16] MEDS: ASCORBIC ACID 500 MG TAB PO SCH (08:21)
[2023-04-16] MEDS: ASPIRIN 81 MG PO SCH (08:21)
[2023-04-16] MEDS: DOCUSATE 100 MG CAP PO SCH ×2 (08:22→19:39)
[2023-04-16] MEDS: guaiFENesin 600 MG TABLET.ER PO SCH ×2 (08:23→19:40)
[2023-04-16] MEDS: ZINC SULFATE 220 MG CAP PO SCH (08:23)
[2023-04-16] MEDS: FUROSEMIDE 40 MG TAB PO SCH (08:23)
[2023-04-16] MEDS: FAMOTIDINE 20 MG TAB PO SCH (08:23)
[2023-04-16] MEDS: POTASSIUM CHLORIDE ER 10 MEQ TAB.ER.PRT PO SCH (08:23)
[2023-04-16] MEDS: ESCITALOPRAM 10 MG TAB PO SCH (08:23)
[2023-04-16] MEDS: ALBUTEROL HFA INHALER INHALATION SCH ×4 (08:29→21:34)
[2023-04-16] MEDS: SYMBICORT 160-4.5 MCG INHALER INHALATION SCH ×2 (08:30→21:35)
[2023-04-16 09:24] LABS: Basophils % (A) 0 %; Eosinophils # (A) 0.1 k/uL (0-0.7); Eosinophils % (A) 1 %; HCT 35.6 % (39.0-53.0); HGB 11.8 gm/dL (13.0-17.5); Lymphocytes # (A) 0.7 k/uL (1.0-4.8); Lymphocytes % (A) 4 %; MCH 30.2 pg (25.0-35.0); MCHC 33.2 g/dL (31.0-37.0); MCV 90.9 fL (80.0-100.0); Mean Platelet Volume 8.6; Monocytes # (A) 0.7 k/uL (0-1.0); Monocytes % (A) 4 %; Neutrophils # (A) 15.7 k/uL (1.3-7.7); Neutrophils % (A) 91 %; Platelet Count 190 k/uL (150-450); RBC 3.91 m/uL (4.30-5.90); RDW 15.1 % (11.5-15.5); WBC 17.2 k/uL (3.8-10.6)
[2023-04-16 09:28] LABS: African American GFR (CKD) >90 (>60 ml/min/1.73 sqM); Anion Gap 1 mmol/L; Blood Urea Nitrogen 37 mg/dL (9-20); Calcium 8.6 mg/dL (8.4-10.2); Carbon Dioxide 35 mmol/L (22-30); Chloride 100 mmol/L (98-107); Glucose 105 mg/dL (74-99); Magnesium 1.6 mg/dL (1.6-2.3); Non-African American GFR(CKD) >90 (>60 ml/min/1.73 sqM); Potassium 4.3 mmol/L (3.5-5.1); Sodium 136 mmol/L (137-145)
--- NOTE | 2023-04-16 12:39 | P.PN ---
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 Maintained on covid cocktail.Currently maintaining O2 sats in the 90s on airvo flow 60 and Fio2 90. BiPAP at bedside. Reports fatigue, weakness. Afebrile. Pro-calcitonin 0.06. Preliminary blood cultures reporting no growth after 24 hours. Denies chest pain, palpitations. 03/26/2023 maintained on airvo, 60 L FIO2 90%, maintaining O2 sats in the high 80s to low 90s. Mild anxiety. Denies chest pain, palpitations. Afebrile. Preliminary blood cultures reporting no growth after 48 hours. 03/27/2023 Feels better this morning. Received Xanax last night, rested better. Continues on Airvo 60 L, FiO2 90% and maintaining O2 sats in the high 80s to low 90s. Chest x-ray reporting ongoing bilateral pleural personal opacity slough greater than right, possibly slight improvement right base. These Bicarb 39, BUN 18, creatinine 0.48. Hemoglobin 14.8, platelets 168. Preliminary blood cultures reporting no growth after 72 hours. Afebrile. 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 Blood sugars controlled. 03/28/2023 maintained on Airvo 60 L, FiO2 90%, O2 sats fluctuates from high 80s to high 90s. Diet intake poor, consumed 25% of breakfast. Denies nausea, vomiting. Denies abdominal pain. Continues on COvid Cocktail. Afebrile. Preliminary blood cultures reporting no growth after 72 hours. Feels discouraged . 04/07/23 afebrile, continues on cefepime, Decadron. Maintained on airvo 60 L/70% FiO2 maintaining O2 sats in the mid 90s. Diet intake including HS snacks, supplement intake poor, on Marinol. 04/08/2023 continues on airvo 60 L/70% FiO2 maintaining O2 sats in the low 90s. Maintained on antibiotics of cefepime and Covid cocktail. Afebrile. Fatigued. 04/09/2023 . Staff reports mild confusion during the night, resolved this morning. Continues on Marinol, diet intake ranging from 25-50%, usually 0% at breakfast. Borderline hypotension, antihypertensives held. Continues on Airvo 60 L/66% FiO2. Continues on antibiotics, cefepime, diuretics and Covid cocktail, Decadron. Afebrile, WBC 18.4. Hemoglobin 12.8, platelets 143. Sodium 136, potassium 4.8. Bicarb decreased to 39. BUN 49, creatinine 0.4. blood sugars controlled. 04/10/2023 sitting up in chair, remains off of airvo, continues on 15 L high flow nasal cannula, maintaining O2 sats in the low 90s. Borderline hypotension. Chest x-ray reported improving patchy left perihilar and peripheral infiltrate persists with pleural thickening, right basilar atelectasis or additional infiltrate. Maintained on cefepime, afebrile, WBC 18.4. Renal function stable. 04/11/2023 sitting up in chair, she decreased to 13 L high flow nasal cannula maintaining O2 sats in the low 90s. More alert today, Marinol dose decreased yesterday. Significant weakness, barely able to stand without assistance. Continues on Cefepime, Decadron, WBC 26, afebrile. Evaluated by cardiology related to abnormal EKG/ ST elevation, asymptomatic. Denies chest pain, palpitations. 2-D echo ordered. 04/15/2023 maintaining O2 sats in the high 80s to low 90s on 8 L high flow nasal cannula. Afebrile, T-max 99.7. PT reports patient was able to ambulate 10 feet with assist. Denies chest pain, palpitation. Echo completed reporting normal LV function, 50-55%, mild aortic sclerosis without significant aortic stenosis. 04/16/2023 maintaining O2 sats in the low 90s on 7 L high flow nasal cannula. Tachycardic, heart rate in the low 100s to 1 teens, currently. Afebrile, WBC trending down, 17.2. Hemoglobin 11.8, platelets 190. Renal function improving. Magnesium 1.6. Denies chest pain, palpitations. Objective - Vital Signs Vital signs: Vital Signs Temp 98.4 F 04/16/23 11:25 Pulse 116 H 04/16/23 11:25 Resp 18 04/16/23 11:25 BP 92/60 04/16/23 11:25 Pulse Ox 91 L 04/16/23 08:32 FiO2 66 04/09/23 08:18 Intake & Output 04/15/23 04/16/23 04/16/23 18:59 06:59 18:59 Intake Total 780 Output Total 900 200 200 Balance -120 -200 -200 Intake: Intake, IV Titration 600 Amount Sodium Chloride 0.9% 1, 600 000 ml @ 75 mls/hr IV . [id number] [facility] Rx#:[id number] Oral 180 Output: Urine 900 200 200 Other: Voiding Method Urinal Urinal - Exam General: Patient awake, alert and oriented times 3, sitting up in bed,On high flow nasal cannula HEENT: Normocephalic, PERRL. EOMI. Neck: supple,No JVD. Cardiac: Regular S1 and S2. No S3. No S4. No clicks, rubs. No murmur. Lungs: Equal air entry Diminished bilateral breath sounds,fine basilar crackles Abdomen: Soft, nontender, no guarding. Positive Bowel sounds. Extremes: [No edema, no cyanosis no claudication normal pulses. Skin: [No rash, warm and dry.] Neurologic: CN II - XII grossly intact. - Labs CBC & Chem 7: 04/16/23 08:55 04/16/23 08:55 Labs: Abnormal Lab Results - Last 24 Hours (Table) 04/16/23 04/16/23 Range/Units 08:55 08:55 WBC 17.2 H (3.8-10.6) k/uL RBC 3.91 L (4.30-5.90) m/uL Hgb 11.8 L (13.0-17.5) gm/dL Hct 35.6 L (39.0-53.0) % Neutrophils # 15.7 H (1.3-7.7) k/uL Lymphocytes # 0.7 L (1.0-4.8) k/uL Sodium 136 L (137-145) mmol/L Carbon Dioxide 35 H (22-30) mmol/L BUN 37 H (9-20) mg/dL Creatinine 0.42 L (0.66-1.25) mg/dL Glucose 105 H (74-99) mg/dL Assessment and Plan Assessment: Assessment and Plan (1) Acute respiratory failure with hypoxia Current Visit: Yes Status: Acute Code(s): J96.01 - ACUTE RESPIRATORY FAILURE WITH HYPOXIA SNOMED Code(s): 41374320 (2) COPD (chronic obstructive pulmonary disease) Current Visit: Yes Status: Acute Code(s): J44.9 - CHRONIC OBSTRUCTIVE PULMONARY DISEASE, UNSPECIFIED SNOMED Code(s): 58602700 (3) COVID-19 Current Visit: Yes Status: Acute Code(s): U07.1 - COVID-19 SNOMED Code(s): 293115800 (4) Pneumonia, sputum cultures reporting Enterobacter aerogenes Current Visit: Yes Status: Acute Code(s): J18.9 - PNEUMONIA, UNSPECIFIED ORGANISM SNOMED Code(s): 516991545 (5) Acute and chronic respiratory failure ([id number]) Current Visit: No Status: Acute Code(s): J96.20 - ACUTE AND CHR RESP FAILURE, UNSP W HYPOXIA OR HYPERCAPNIA SNOMED Code(s): 00523353 (6) Adenocarcinoma of lung Current Visit: No Status: Acute Priority: High Code(s): C34.90 - MALIGNANT NEOPLASM OF UNSP PART OF UNSP BRONCHUS OR LUNG SNOMED Code(s): 797847538 (7) Atherosclerosis of abdominal aorta Current Visit: No Status: Acute Code(s): I70.0 - ATHEROSCLEROSIS OF AORTA SNOMED Code(s): 765374838 (8) No code, No CPR, No intubation Plan: Continue on current medication regime ,monitoring and symptomatic treatment. Magnesium supplementation ordered. Continue dexamethasone,bronchodilators. PT. encourage protein supplements. Prognosis guarded given multiple complex medical issues. The impression and plan of care has been dictated as directed. : I performed a history and examination of this patient, discussed the same with the dictator. I agree with the dictator's note ,documented as a scribe. Any additional findings or plans will be noted.
[2023-04-16] MEDS: MAGNESIUM SULFATE-D5W PMX 1 GM in DEXTROSE/WATER 1 100ML.BAG IVPB SCH ×2 (12:42→14:12)
--- NOTE | 2023-04-16 15:18 | P.PN ---
Subjective Progress Note Date: 04/16/23 Principal diagnosis: Hypoxemic respiratory failure. I am seeing this patient in new consultation today 03/24/2023 for suspected left lower lobe pneumonia. Patient is a 73-year-old white male with past medical history significant for recent admission with left lower lobe pneumonia, discharged on March 17. During this admission, the patient was also found to have metastatic adenocarcinoma of the lung based on pleural fluid cytology from a left sided thoracentesis. He also has history of COPD, hypertension, hyperlipidemia, GERD, and ongoing chronic tobacco dependence. Patient is known to have a 10 mm x 7mm right upper lung nodule, originally seen back in June,. His PCP is Dr. Nichols. Chest CT from his most recent admission, March 07, demonstrated a right upper lung bronchus large airway occlusion concerning for obstructive mass. There was also a loculated left pleural effusion with left lung consolidation. The patient was treated with IV antibiotics and discharged home on Augmentin. He was established with an oncologist, and is reportedly going to undergo a PET scan outpatient. Patient returned to the emergency room last night, reporting that he's had ongoing progressively worsening shortness of breath since discharge. He admits an associated nonproductive cough. Denies any fever, chills, myalgias, hemoptysis. Denies any chest pain, palpitations, lower extremity edema, syncope. A chest x-ray done on arrival, showed worsening airspace opacities within the left mid and lower lung zones compared to prior imaging. There was also suspected right lower lung atelectasis, and trace to small bilateral pleural effusions. Patient did test positive for COVID-19, possibly an incidental finding. Patient is currently sitting up in bed, on BiPAP with settings 12/6 and FiO2 of 60%. Appears fairly comfortable. Respiratory rate is high 20s to low 30s and is achieving tidal volumes around 400. CBC on arrival shows leukocytosis with WBC count of 16.9, hemoglobin 14.7, hematocrit 45.4, platelets 150. BMP shows sodium 133, potassium 4.1, chloride 92, serum bicarbonate 39, BUN 17, creatinine 0.43, glucose 99. Currently receiving normal saline at 100 ML's per hour. He was started on empiric Zosyn and azithromycin. Currently afebrile. Also receiving Ventolin HFA, Symbicort inhaler, and IV Decadron. Patient is being monitored closely on the cardiac stepdown unit. Progress note dated 03/25/2023. 73-year-old male admitted on March 24, with a diagnosis of possible left lower lobe pneumonia, and hypoxemic respiratory failure. Currently, the patient is on BiPAP, with settings of 12/6, and 70%. He has no IV fluids running at this time. He did test positive for coronavirus. He does have a history of lung cancer, adenocarcinoma. The only labs today include glucose of 110. Chest x-ray from March 24, shows a small to moderate-sized left pleural effusion, with increased small right pleural effusion. There is also some right lower lung consolidation. Progress note dated 03/26/2023. 73-year-old male admitted on March 24, with a diagnosis of possible left lower lobe pneumonia and hypoxemic respiratory failure. The patient is currently on AIRVO, with settings of 60 L/m and an FiO2 of 90%. He's not receiving any IV fluids. A chest x-ray is ordered for March 27. The only lab today with a glucose of 111. Clinically, the patient's doing about the same. Blood cultures are currently negative. Progress note dated 03/27/2023. The patient is seen today in room 368. He continues on AIRVO, with settings of 60 L/m, with an FiO2 of 90%. The chest x-ray done today, shows worsening infiltrates. Clinically, the patient appears reasonably stable. White count 18.6, hemoglobin 10.8, hematocrit 46.2, and platelet count was normal. Sodium 139, potassium 4.6, chlorides 96, CO2 39, BUN 18, and creatinine 0.48. Blood cultures are negative. Chest x-ray shows bilateral pleural/parenchymal opacities, left greater than right. Radiologist feels there may be some improvement. Progress note dated 03/28/2023. This is a 74-year-old male seen in room 368. The patient continues on AIRVO, at 60 L/m, and an FiO2 of 90%. The patient does feel better. He's not receiving any IV fluids. Labs today include only a glucose of 89. As mentioned yesterday, the chest x-ray, as interpreted by the radiologist, suggests some improvement. Progress note dated 03/29/2023. The patient is seen today in room 368. He continues on AIRVO, at 60 L/m, with an FiO2 of 90%. He is getting D5 with normal saline, at 50 mL an hour. She does feel like he is getting better. He looks relatively stable, and his respiratory status, despite being on AIRVO, appears stable. White count is 15.2, with a normal hemoglobin, hematocrit, and platelet count. Sodium 140, potassium 4.4, chlorides 99, CO2 39, BUN 25, and creatinine 0.43. Progress note dated 03/30/2023. The patient is seen today in room 368. He is on AIRVO, with settings of 60 L/m, for flow rate, and an FiO2, that has been dropped down to 80%. The patient continues on saline at 75 mL an hour. Chest x-ray ordered for tomorrow, March 31. No new labs today, other than a glucose of 99. 04/06 2023, no major improvement and the patient remains on high flow oxygen at 60 L an FiO2 of 70%. Continues to be on Decadron. Continues to be on cefepime. Most recent chest x-ray from 04/05/2023 showed stable findings. He is a DNR/DNI CODE STATUS. The patient is seen today 04/07/2023 in follow-up on the selective care unit. He is currently sitting up in bed. He is quite weak and debilitated. He continues to require AirVo high flow oxygen at 60 L and 70% FiO2 with O2 saturation in the 90s. Sputum culture was positive for Enterobacter aerogenes. The cultures revealed no growth. Blood sugar 135. He remains on Symbicort, albuterol, Decadron and vitamin supplements. Heparin for DVT prophylaxis. Antibiotics in the form of cefepime. Family is considering comfort care/hospice. The patient is seen today 04/08/2023 in follow-up on the selective care unit. He is awake. Quite weak and debilitated. He remains on AirVo high flow oxygen at 60 L and 70% FiO2. Sputum culture was positive for Enterobacter aerogenes. Blood cultures revealed no growth. Glucose 113. He is continued on Symbicort, albuterol, vitamin supplements. She remains on Decadron. Antibiotics in the form of cefepime. Remains on diuretics. Currently in a negative balance. The patient is seen today 04/09/2023 in follow-up on the selective care unit. He remains awake and alert. Resting in bed. Still requiring AirVo high flow nasal cannula at 60 L and 65% FiO2. Sputum culture positive for Enterobacter aerogenes. Blood cultures reveal no growth. White count 18.4. Hemoglobin 12.8. Platelets 143. Sodium 136. Potassium 4.8. Bicarb. 9. BUN 49. Creatinine 0.40. AST 46. ALT 108. Albumin 2.9. He is continued on Symbicort, albuterol, vitamin supplements. She remains on Decadron. Antibiotics in the form of cefepime. Remains on diuretics. The patient is seen today 04/13/2023 in follow-up on the selective care unit. He is sitting up in a chair at the bedside. Awake and alert in no acute distress. Is currently on 9 L high flow nasal cannula with O2 saturations in the 90s. He's been afebrile. Hemodynamically stable. Sputum culture was positive for Enterobacter aerogenes. Blood cultures reveal no growth. Sodium 136. Potassium 4.5. Bicarb 38. BUN 49. Creatinine 0.52. Glucose 129. He is continued on Symbicort, albuterol, Decadron. Heparin for DVT prophylaxis. Remains on vitamin supplements. Progress note dated 04/14/2023. The patient is seen today in room 368. The patient has not been in the hospital for 22 days. Currently, the patient remains on saline at 50 mL an hour, and nasal cannula high flow, at 9 L. The patient is a DO NOT RESUSCITATE patient. The patient is very frail and weak appearing. Labs today include a sodium 138, potassium 4.4, chlorides 96, CO2 39, BUN 55, and creatinine 0.6. Chest x-ray shows a left multifocal airspace opacity, and stable trace bilateral effusions. The chest x-rays essentially unchanged. Progress note dated 04/15/2023. The patient is seen today in room 368. Currently, the patient appears to be doing slightly bit better. The patient is currently on saline at 50 mL an hour, and is getting a liters oxygen, high flow. Awake and alert, sitting upright in bed. The nurses are in the room with him. He states that his breathing is improved. She does have a bit of a wet/congested cough. No new labs today. The chest x-ray from April 14 has been reviewed. Progress note dated 04/16/2023. The patient is seen again in room 368. Currently, the patient has been weaned d own to 7 L by nasal cannula. The patient is receiving saline at 50 mL an hour. Clinically, he appears to get better each day, albeit very slowly. White count is 17.2 down from 24.7. Hemoglobin 11.8, hematocrit 35.6, with a normal platelet count. Sodium 136, potassium 4.3, chlorides 100, CO2 35, BUN 37, and creatinine 0.42. Objective - Vital Signs Vital signs: Vital Signs Temp 98.4 F 04/16/23 11:25 Pulse 116 H 04/16/23 11:25 Resp 18 04/16/23 11:25 BP 92/60 04/16/23 11:25 Pulse Ox 91 L 04/16/23 08:32 FiO2 66 04/09/23 08:18 Intake & Output 04/15/23 04/16/23 04/16/23 18:59 06:59 18:59 Intake Total 780 Output Total 006 376 3003 Balance -120 -200 -1025 Intake: Intake, IV Titration 600 Amount Sodium Chloride 0.9% 1, 600 000 ml @ 75 mls/hr IV . [id number] [facility] Rx#:[id number] Oral 180 Output: Urine 002 [id number] Other: Voiding Method Urinal Urinal - Exam No acute distress, oriented 3. The patient is on high flow nasal cannula 7 L/m. HEENT examination is grossly unremarkable. Neck supple. Full range of motion. No adenopathy thyromegaly or neck vein distention. Cardiovascular examination reveals regular rhythm rate. S1-S2 normal. No S3 or S4. Heart rate is 112 bpm. Heart sounds are distant. Lungs reveal scattered rhonchi, with a few scattered bibasilar crackles. No wheezes. Breath sounds are equal bilaterally. Saturations are 93% on 7 liter high flow nasal cannula. Abdomen soft bowel sounds are heard. No masses or tenderness. Extremities are intact. No cyanosis clubbing or edema. Skin is without rash or lesion. Neurologic examination is brief but nonfocal. - Labs CBC & Chem 7: 04/16/23 08:55 04/16/23 08:55 Labs: Abnormal Lab Results - Last 24 Hours (Table) 04/16/23 04/16/23 Range/Units 08:55 08:55 WBC 17.2 H (3.8-10.6) k/uL RBC 3.91 L (4.30-5.90) m/uL Hgb 11.8 L (13.0-17.5) gm/dL Hct 35.6 L (39.0-53.0) % Neutrophils # 15.7 H (1.3-7.7) k/uL Lymphocytes # 0.7 L (1.0-4.8) k/uL Sodium 136 L (137-145) mmol/L Carbon Dioxide 35 H (22-30) mmol/L BUN 37 H (9-20) mg/dL Creatinine 0.42 L (0.66-1.25) mg/dL Glucose 105 H (74-99) mg/dL Assessment and Plan Assessment: Acute hypoxemic respiratory failure secondary to recurrent/persistent left lower lobe pneumonia. Chest x-ray on arrival demonstrates worsening opacities within the left mid and lower lung zones compared to his recent imaging. There was also suspected right lower lung atelectasis, and trace to small bilateral pleural effusions. Also, did test positive for COVID-19, possibly an incidental finding. The patient has also Enterobacter in his sputum and patchy infiltrates are seen in the left upper lobe and the left lower lobe. Rule out malignancy/primary bronchogenic carcinoma. Rule out bacterial infection/pneumonia as the patient was found to have Enterobacter in his sputum. In addition, he has advanced COPD, and a malignant left-sided pleural effusion. No major interval change in his overall condition and oxygenation. The patient remains on Decadron. Repeat chest x-ray from 04/05/2023 shows a stable peripheral left lung pulmonary infiltrate and small bilateral pleural effusions. The patient continues to require 9 L high flow nasal cannula to maintain a oxygenation saturation above 90%. Leukocytosis, secondary to above. Acute COPD exacerbation, secondary to above. Recent diagnosis of metastatic pulmonary adenocarcinoma based on pleural fluid cytology from a left-sided thoracentesis 03/11/23. History of right apical lung nodule measuring 10 x 7 mm June,. Benign essential hypertension. Hyperlipidemia. GERD. Chronic ongoing tobacco dependence. Plan: Plan dated 03/25/2023. The patient's labs, x-rays, and medications are all reviewed. The patient goes between BiPAP, in the AIRVO, for respiratory support. He is currently a full code. The patient's antibiotics and other medications will be continued. Oncology will be consulted. The patient will continue with DVT and GI prophylaxis. The patient's overall prognosis remains very guarded given all of his medical issues. We will continue to follow make recommendations along the way. The patient remains on antibiotics. Plan dated 03/26/2023. The patient is seen today in room 368. The patient remains on AIRVO at the current time, at 60 L/m, with an FiO2 of 90%. The patient remains a full code. A chest x-ray will be ordered for March 27. Labs, x-rays, and medications are reviewed. The patient remains on albuterol, Symbicort, and Decadron, and the patient's also on vitamin C, vitamin D3, and zinc. We will continue to fol low make recommendations along the way. Prognosis is guarded. Plan dated 03/27/2023. The patient is seen again in room 368. Clinically, he appears relatively stable, even though he is on AIRVO and 60 L/m, with an FiO2 of 90%. The patient remains a full code. Labs, x-rays, medications are reviewed. The patient continues on appropriate medications including albuterol inhaler, Symbicort inhaler, Decadron, vitamin C, vitamin D3, and zinc. Additional recommendations and suggestions are forthcoming. Prognosis is guarded. The chest x-ray, according to the radiologist, may be slightly improved. Plan dated 03/28/2023. The patient is seen today in room 368. He continues on AIRVO, at 60 L/m, with an FiO2 of 90%. His saturations ranged from 90% as a low, up to 95% has a high. Labs, x-rays, and medications are reviewed. The patient continues on appropriate medications. The chest x-ray dated March 27, apparently is read/ interpreted by the radiologist showing improvement. I thought there was no significant change. Patient continues on appropriate medications including bronchodilators, steroids, and vitamins. Prognosis is certainly guarded. Plan dated 03/29/2023. The patient appears to be doing reasonably well. When asked, the patient feels like he is getting better. Labs, x-rays, and medications are reviewed. The patient's currently on albuterol inhaler, vitamins, Symbicort, and Decadron. We will continue to follow make recommendations along the way. Prognosis is certainly guarded, given his need for higher concentrations of oxygen. Plan dated 03/30/2023. The patient's labs, x-rays, and medications are reviewed. He'll follow-up x- rays ordered for tomorrow, March 31. The patient continues on saline at 75 mL an hour. Currently, he is on AIRVO, at 60 L/m for a flow rate, and FiO2 of 80%. On those settings, her saturations are 98%, which is an improvement. Additional recommendations and suggestions are forthcoming. We will continue to follow and make recommendations along the way. Plan dated 04/14/2023. The patient is seen today in room 368. He continues on high flow nasal cannula. He is currently a DO NOT RESUSCITATE patient. I saw him last back on March 30, and he looks weaker, and more frail appearing. Labs, x-rays, and med ications are reviewed. The patient's medications are reviewed and are appropriate. Prognosis is certainly very guarded. Plan dated 04/15/2023. The patient has been weaned down to a liter high flow nasal cannula. The patient is seen today in room 368. He feels better, and feels like his breathi ng is improved. The patient is a DO NOT RESUSCITATE patient. Labs, x-rays, and medications are reviewed. The patient has been here in the hospital now for 23 days. We will continue to follow make recommendations along the way. Prognosis is certainly guarded. Plan dated 04/16/2023. Currently, the patient appears to be doing better each day. He's been weaned down to 7 L high flow nasal cannula. His saturations are in the low 90s. Labs, x-rays, and medications are reviewed. The patient is a DO NOT RESUSCITATE patient. The patient has now been in the hospital for 24 days. The patient's overall prognosis remains guarded. We will continue to follow the patient, and make recommendations along the way. Time with Patient: Less than 30
[2023-04-16] MEDS: ATORVASTATIN 20 MG TAB PO SCH (19:39)
[2023-04-17] MEDS: HEPARIN SODIUM,PORCINE 5,000 UNIT/ML 1 ML VIAL SQ SCH ×4 (00:30→23:49)
[2023-04-17] MEDS: DEXTROSE 5%-0.9% NACL 1,000 ML IV SCH (00:32)
[2023-04-17] MEDS: SODIUM CHLORIDE 0.9% 1,000 ML IV SCH (03:17)
[2023-04-17] MEDS: MIDODRINE 5 MG TAB PO SCH ×2 (06:18→16:22)
[2023-04-17] MEDS: PANTOPRAZOLE 40 MG TABLET PO SCH (06:18)
[2023-04-17] MEDS: droNABinol 2.5 MG CAP PO SCH (06:18)
[2023-04-17] MEDS: ASCORBIC ACID 500 MG TAB PO SCH (08:37)
[2023-04-17] MEDS: ASPIRIN 81 MG PO SCH (08:38)
[2023-04-17] MEDS: FAMOTIDINE 20 MG TAB PO SCH (08:38)
[2023-04-17] MEDS: POTASSIUM CHLORIDE ER 10 MEQ TAB.ER.PRT PO SCH (08:38)
[2023-04-17] MEDS: ZINC SULFATE 220 MG CAP PO SCH (08:38)
[2023-04-17] MEDS: FUROSEMIDE 40 MG TAB PO SCH (08:38)
[2023-04-17] MEDS: guaiFENesin 600 MG TABLET.ER PO SCH ×2 (08:38→19:45)
[2023-04-17] MEDS: ESCITALOPRAM 10 MG TAB PO SCH (08:38)
[2023-04-17] MEDS: CHOLECALCIFEROL 25 MCG (1000 IU) TABLET PO SCH (08:38)
[2023-04-17] MEDS: DOCUSATE 100 MG CAP PO SCH ×2 (08:38→19:45)
[2023-04-17] MEDS: DEXAMETHASONE SOD PHOSPHATE 10 MG/ML 1 ML VIAL IVP SCH (08:38)
[2023-04-17] MEDS: ALBUTEROL HFA INHALER INHALATION SCH ×4 (09:05→21:20)
[2023-04-17] MEDS: SYMBICORT 160-4.5 MCG INHALER INHALATION SCH ×2 (09:05→21:20)
--- NOTE | 2023-04-17 13:25 | P.PN ---
Subjective Progress Note Date: 04/17/23 H&P Date: 03/24/23 Chief Complaint: shortness of breath Mister Rhodes is a 73-year-old male well-known to the practice, recently diagnosed with bronchogenic carcinoma of the lung, presented to [place] emergency room with shortness of breath, and positive for Covid, patient also demonstrating a left sided infiltrate is currently on BiPAP steroid-dependent O2 dependent BiPAP dependent lung disease long-standing smoker essentially quit approximately 2 weeks ago This is 73-year-old gentleman with recently diagnosed adenocarcinoma of lung, admitted with acute COVID-19 infection, hypoxic respiratory failure and multiple other medical issues. Maintained on covid cocktail.Currently maintaining O2 sats in the 90s on airvo flow 60 and Fio2 90. BiPAP at bedside. Reports fatigue, weakness. Afebrile. Pro-calcitonin 0.06. Preliminary blood cultures reporting no growth after 24 hours. Denies chest pain, palpitations. 03/26/2023 maintained on airvo, 60 L FIO2 90%, maintaining O2 sats in the high 80s to low 90s. Mild anxiety. Denies chest pain, palpitations. Afebrile. Preliminary blood cultures reporting no growth after 48 hours. 03/27/2023 Feels better this morning. Received Xanax last night, rested better. Continues on Airvo 60 L, FiO2 90% and maintaining O2 sats in the high 80s to low 90s. Chest x-ray reporting ongoing bilateral pleural personal opacity slough greater than right, possibly slight improvement right base. These Bicarb 39, BUN 18, creatinine 0.48. Hemoglobin 14.8, platelets 168. Preliminary blood cultures reporting no growth after 72 hours. Afebrile. HOSPICE AIDE increased to 18.6. Blood sugars controlled. 03/28/2023 maintained on Airvo 60 L, FiO2 90%, O2 sats fluctuates from high 80s to high 90s. Diet intake poor, consumed 25% of breakfast. Denies nausea, vomiting. Denies abdominal pain. Continues on COvid Cocktail. Afebrile. Preliminary blood cultures reporting no growth after 72 hours. Feels discouraged . 04/07/23 afebrile, continues on cefepime, Decadron. Maintained on airvo 60 L/70% FiO2 maintaining O2 sats in the mid 90s. Diet intake including HS snacks, supplement intake poor, on Marinol. 04/08/2023 continues on airvo 60 L/70% FiO2 maintaining O2 sats in the low 90s. Maintained on antibiotics of cefepime and Covid cocktail. Afebrile. Fatigued. 04/09/2023 . Staff reports mild confusion during the night, resolved this morning. Continues on Marinol, diet intake ranging from 25-50%, usually 0% at breakfast. Borderline hypotension, antihypertensives held. Continues on Airvo 60 L/66% FiO2. Continues on antibiotics, cefepime, diuretics and Covid cocktail, Decadron. Afebrile, WBC 18.4. Hemoglobin 12.8, platelets 143. Sodium 136, potassium 4.8. Bicarb decreased to 39. BUN 49, creatinine 0.4. blood sugars controlled. 04/10/2023 sitting up in chair, remains off of airvo, continues on 15 L high flow nasal cannula, maintaining O2 sats in the low 90s. Borderline hypotension. Chest x-ray reported improving patchy left perihilar and peripheral infiltrate persists with pleural thickening, right basilar atelectasis or additional infiltrate. Maintained on cefepime, afebrile, WBC 18.4. Renal function stable. 04/11/2023 sitting up in chair, she decreased to 13 L high flow nasal cannula maintaining O2 sats in the low 90s. More alert today, Marinol dose decreased yesterday. Significant weakness, barely able to stand without assistance. Continues on Cefepime, Decadron, WBC 26, afebrile. Evaluated by cardiology related to abnormal EKG/ ST elevation, asymptomatic. Denies chest pain, palpitations. 2-D echo ordered. 04/15/2023 maintaining O2 sats in the high 80s to low 90s on 8 L high flow nasal cannula. Afebrile, T-max 99.7. PT reports patient was able to ambulate 10 feet with assist. Denies chest pain, palpitation. Echo completed reporting normal LV function, 50-55%, mild aortic sclerosis without significant aortic stenosis. 04/16/2023 maintaining O2 sats in the low 90s on 7 L high flow nasal cannula. Tachycardic, heart rate in the low 100s to 1 teens, currently. Afebrile, WBC trending down, 17.2. Hemoglobin 11.8, platelets 190. Renal function improving. Magnesium 1.6. Denies chest pain, palpitations. 04/17/23 maintaining O2 sats in the low 90s on 8 L high flow nasal cannula . Occasional productive cough.Tachycardic, 1 teens. Afebrile. Diet Intake improving. Denies Chest pain, palpitations. Objective - Vital Signs Vital signs: Vital Signs Temp 97.6 F 04/17/23 08:00 Pulse 116 H 04/17/23 12:00 Resp 16 04/17/23 12:00 BP 92/54 04/17/23 12:00 Pulse Ox 93 L 04/17/23 12:00 FiO2 66 04/09/23 08:18 Intake & Output 04/16/23 04/17/23 04/17/23 18:59 06:59 18:59 Intake Total 800 Output Total 1525 600 Balance -725 -600 Intake: Intake, IV Titration 800 Amount Magnesium Sulfate-D5w Pmx 200 1 gm In Dextrose/Water 1 100ml.bag @ 100 mls/hr IVPB Q1H [facility] Rx#: [id number] Sodium Chloride 0.9% 1, 600 000 ml @ 75 mls/hr IV . [id number] [facility] Rx#:[id number] Output: Urine 1525 600 Other: Voiding Method Urinal Urinal Urinal # Bowel Movements 1 - Exam General: Patient awake, alert and oriented times 3,sitting up in chair,On high flow nasal cannula HEENT: Normocephalic, PERRL. EOMI. Neck: supple,No JVD. Cardiac: Regular S1 and S2. No S3. No S4. No clicks, rubs. No murmur. Lungs: Equal air entry ,Diminished bilateral breath sounds,fine basilar crackles Abdomen: Soft, nontender, no guarding. Positive Bowel sounds. Extremes: [No edema, no cyanosis no claudication normal pulses. Skin: [No rash, warm and dry.] Neurologic: CN II - XII grossly intact. - Labs CBC & Chem 7: 04/16/23 08:55 04/16/23 08:55 Assessment and Plan Assessment: Assessment and Plan (1) Acute respiratory failure with hypoxia Current Visit: Yes Status: Acute Code(s): J96.01 - ACUTE RESPIRATORY FAILURE WITH HYPOXIA SNOMED Code(s): 57759420 (2) COPD (chronic obstructive pulmonary disease) Current Visit: Yes Status: Acute Code(s): J44.9 - CHRONIC OBSTRUCTIVE PULMONARY DISEASE, UNSPECIFIED SNOMED Code(s): 68439340 (3) COVID-19 Current Visit: Yes Status: Acute Code(s): U07.1 - COVID-19 SNOMED Code(s): 533755097 (4) Pneumonia, sputum cultures reporting Enterobacter aerogenes Current Visit: Yes Status: Acute Code(s): J18.9 - PNEUMONIA, UNSPECIFIED ORGANISM SNOMED Code(s): 553362096 (5) Acute and chronic respiratory failure ([id number]) Current Visit: No Status: Acute Code(s): J96.20 - ACUTE AND CHR RESP FAILURE, UNSP W HYPOXIA OR HYPERCAPNIA SNOMED Code(s): 18514279 (6) Adenocarcinoma of lung Current Visit: No Status: Acute Priority: High Code(s): C34.90 - MALIGNANT NEOPLASM OF UNSP PART OF UNSP BRONCHUS OR LUNG SNOMED Code(s): 314851106 (7) Atherosclerosis of abdominal aorta Current Visit: No Status: Acute Code(s): I70.0 - ATHEROSCLEROSIS OF AORTA SNOMED Code(s): 828289838 (8) No code, No CPR, No intubation Plan: Continue on current medication regime ,monitoring and symptomatic treatment.Continues on dexamethasone,bronchodilators. PT. encourage protein supplements. at bedside, updated on plan of care, including dc to [facility] once able to maintain satisfactory O2 sats on 5lnc or less. Prognosis guarded given multiple complex medical issues. The impression and plan of care has been dictated as directed. : I performed a history and examination of this patient, discussed the same with the dictator. I agree with the dictator's note ,documented as a scribe. Any additional findings or plans will be noted.
--- NOTE | 2023-04-17 13:26 | P.PN ---
Subjective Progress Note Date: 04/17/23 Principal diagnosis: Hypoxemic respiratory failure. I am seeing this patient in new consultation today 03/24/2023 for suspected left lower lobe pneumonia. Patient is a 73-year-old white male with past medical history significant for recent admission with left lower lobe pneumonia, discharged on March 17. During this admission, the patient was also found to have metastatic adenocarcinoma of the lung based on pleural fluid cytology from a left sided thoracentesis. He also has history of COPD, hypertension, hyperlipidemia, GERD, and ongoing chronic tobacco dependence. Patient is known to have a 10 mm x 7mm right upper lung nodule, originally seen back in June,. His PCP is Dr. Nichols. Chest CT from his most recent admission, March 07, demonstrated a right upper lung bronchus large airway occlusion concerning for obstructive mass. There was also a loculated left pleural effusion with left lung consolidation. The patient was treated with IV antibiotics and discharged home on Augmentin. He was established with an oncologist, and is reportedly going to undergo a PET scan outpatient. Patient returned to the emergency room last night, reporting that he's had ongoing progressively worsening shortness of breath since discharge. He admits an associated nonproductive cough. Denies any fever, chills, myalgias, hemoptysis. Denies any chest pain, palpitations, lower extremity edema, syncope. A chest x-ray done on arrival, showed worsening airspace opacities within the left mid and lower lung zones compared to prior imaging. There was also suspected right lower lung atelectasis, and trace to small bilateral pleural effusions. Patient did test positive for COVID-19, possibly an incidental finding. Patient is currently sitting up in bed, on BiPAP with settings 12/6 and FiO2 of 60%. Appears fairly comfortable. Respiratory rate is high 20s to low 30s and is achieving tidal volumes around 400. CBC on arrival shows leukocytosis with WBC count of 16.9, hemoglobin 14.7, hematocrit 45.4, platelets 150. BMP shows sodium 133, potassium 4.1, chloride 92, serum bicarbonate 39, BUN 17, creatinine 0.43, glucose 99. Currently receiving normal saline at 100 ML's per hour. He was started on empiric Zosyn and azithromycin. Currently afebrile. Also receiving Ventolin HFA, Symbicort inhaler, and IV Decadron. Patient is being monitored closely on the cardiac stepdown unit. Progress note dated 03/25/2023. 73-year-old male admitted on March 24, with a diagnosis of possible left lower lobe pneumonia, and hypoxemic respiratory failure. Currently, the patient is on BiPAP, with settings of 12/6, and 70%. He has no IV fluids running at this time. He did test positive for coronavirus. He does have a history of lung cancer, adenocarcinoma. The only labs today include glucose of 110. Chest x-ray from March 24, shows a small to moderate-sized left pleural effusion, with increased small right pleural effusion. There is also some right lower lung consolidation. Progress note dated 03/26/2023. 73-year-old male admitted on March 24, with a diagnosis of possible left lower lobe pneumonia and hypoxemic respiratory failure. The patient is currently on AIRVO, with settings of 60 L/m and an FiO2 of 90%. He's not receiving any IV fluids. A chest x-ray is ordered for March 27. The only lab today with a glucose of 111. Clinically, the patient's doing about the same. Blood cultures are currently negative. Progress note dated 03/27/2023. The patient is seen today in room 368. He continues on AIRVO, with settings of 60 L/m, with an FiO2 of 90%. The chest x-ray done today, shows worsening infiltrates. Clinically, the patient appears reasonably stable. White count 18.6, hemoglobin 10.8, hematocrit 46.2, and platelet count was normal. Sodium 139, potassium 4.6, chlorides 96, CO2 39, BUN 18, and creatinine 0.48. Blood cultures are negative. Chest x-ray shows bilateral pleural/parenchymal opacities, left greater than right. Radiologist feels there may be some improvement. Progress note dated 03/28/2023. This is a 74-year-old male seen in room 368. The patient continues on AIRVO, at 60 L/m, and an FiO2 of 90%. The patient does feel better. He's not receiving any IV fluids. Labs today include only a glucose of 89. As mentioned yesterday, the chest x-ray, as interpreted by the radiologist, suggests some improvement. Progress note dated 03/29/2023. The patient is seen today in room 368. He continues on AIRVO, at 60 L/m, with an FiO2 of 90%. He is getting D5 with normal saline, at 50 mL an hour. She does feel like he is getting better. He looks relatively stable, and his respiratory status, despite being on AIRVO, appears stable. White count is 15.2, with a normal hemoglobin, hematocrit, and platelet count. Sodium 140, potassium 4.4, chlorides 99, CO2 39, BUN 25, and creatinine 0.43. Progress note dated 03/30/2023. The patient is seen today in room 368. He is on AIRVO, with settings of 60 L/m, for flow rate, and an FiO2, that has been dropped down to 80%. The patient continues on saline at 75 mL an hour. Chest x-ray ordered for tomorrow, March 31. No new labs today, other than a glucose of 99. 04/06 2023, no major improvement and the patient remains on high flow oxygen at 60 L an FiO2 of 70%. Continues to be on Decadron. Continues to be on cefepime. Most recent chest x-ray from 04/05/2023 showed stable findings. He is a DNR/DNI CODE STATUS. The patient is seen today 04/07/2023 in follow-up on the selective care unit. He is currently sitting up in bed. He is quite weak and debilitated. He continues to require AirVo high flow oxygen at 60 L and 70% FiO2 with O2 saturation in the 90s. Sputum culture was positive for Enterobacter aerogenes. The cultures revealed no growth. Blood sugar 135. He remains on Symbicort, albuterol, Decadron and vitamin supplements. Heparin for DVT prophylaxis. Antibiotics in the form of cefepime. Family is considering comfort care/hospice. The patient is seen today 04/08/2023 in follow-up on the selective care unit. He is awake. Quite weak and debilitated. He remains on AirVo high flow oxygen at 60 L and 70% FiO2. Sputum culture was positive for Enterobacter aerogenes. Blood cultures revealed no growth. Glucose 113. He is continued on Symbicort, albuterol, vitamin supplements. She remains on Decadron. Antibiotics in the form of cefepime. Remains on diuretics. Currently in a negative balance. The patient is seen today 04/09/2023 in follow-up on the selective care unit. He remains awake and alert. Resting in bed. Still requiring AirVo high flow nasal cannula at 60 L and 65% FiO2. Sputum culture positive for Enterobacter aerogenes. Blood cultures reveal no growth. White count 18.4. Hemoglobin 12.8. Platelets 143. Sodium 136. Potassium 4.8. Bicarb. 9. BUN 49. Creatinine 0.40. AST 46. ALT 108. Albumin 2.9. He is continued on Symbicort, albuterol, vitamin supplements. She remains on Decadron. Antibiotics in the form of cefepime. Remains on diuretics. The patient is seen today 04/13/2023 in follow-up on the selective care unit. He is sitting up in a chair at the bedside. Awake and alert in no acute distress. Is currently on 9 L high flow nasal cannula with O2 saturations in the 90s. He's been afebrile. Hemodynamically stable. Sputum culture was positive for Enterobacter aerogenes. Blood cultures reveal no growth. Sodium 136. Potassium 4.5. Bicarb 38. BUN 49. Creatinine 0.52. Glucose 129. He is continued on Symbicort, albuterol, Decadron. Heparin for DVT prophylaxis. Remains on vitamin supplements. Progress note dated 04/14/2023. The patient is seen today in room 368. The patient has not been in the hospital for 22 days. Currently, the patient remains on saline at 50 mL an hour, and nasal cannula high flow, at 9 L. The patient is a DO NOT RESUSCITATE patient. The patient is very frail and weak appearing. Labs today include a sodium 138, potassium 4.4, chlorides 96, CO2 39, BUN 55, and creatinine 0.6. Chest x-ray shows a left multifocal airspace opacity, and stable trace bilateral effusions. The chest x-rays essentially unchanged. Progress note dated 04/15/2023. The patient is seen today in room 368. Currently, the patient appears to be doing slightly bit better. The patient is currently on saline at 50 mL an hour, and is getting a liters oxygen, high flow. Awake and alert, sitting upright in bed. The nurses are in the room with him. He states that his breathing is improved. She does have a bit of a wet/congested cough. No new labs today. The chest x-ray from April 14 has been reviewed. Progress note dated 04/16/2023. The patient is seen again in room 368. Currently, the patient has been weaned d own to 7 L by nasal cannula. The patient is receiving saline at 50 mL an hour. Clinically, he appears to get better each day, albeit very slowly. White count is 17.2 down from 24.7. Hemoglobin 11.8, hematocrit 35.6, with a normal platelet count. Sodium 136, potassium 4.3, chlorides 100, CO2 35, BUN 37, and creatinine 0.42. Progress note dated 04/17/2023. 73-year-old male, who is now been in the hospital, for 25 days. The patient is seen today in room 368. The patient's on saline at 75 mL an hour. A chest x- rays were ordered for tomorrow. He continues on high flow nasal cannula, at 8 liters per minute. No new labs today. The patient looks about the same today as he did yesterday. Objective - Vital Signs Vital signs: Vital Signs Temp 97.6 F 04/17/23 08:00 Pulse 116 H 04/17/23 12:00 Resp 16 04/17/23 12:00 BP 92/54 04/17/23 12:00 Pulse Ox 93 L 04/17/23 12:00 FiO2 66 04/09/23 08:18 Intake & Output 04/16/23 04/17/23 04/17/23 18:59 06:59 18:59 Intake Total 800 Output Total 1525 600 Balance -725 -600 Intake: Intake, IV Titration 800 Amount Magnesium Sulfate-D5w Pmx 200 1 gm In Dextrose/Water 1 100ml.bag @ 100 mls/hr IVPB Q1H [facility] Rx#: [id number] Sodium Chloride 0.9% 1, 600 000 ml @ 75 mls/hr IV . [id number] MANA Rx#:[id number] Output: Urine 1525 600 Other: Voiding Method Urinal Urinal Urinal # Bowel Movements 1 - Exam No acute distress, oriented 3. The patient is on high flow nasal cannula 8 L/m. HEENT examination is grossly unremarkable. Neck supple. Full range of motion. No adenopathy thyromegaly or neck vein distention. Cardiovascular examination reveals regular rhythm rate. S1-S2 normal. No S3 or S4. Heart rate is 106 bpm. Heart sounds are distant. Lungs reveal scattered rhonchi, with a few scattered bibasilar crackles. No wheezes. Breath sounds are equal bilaterally. Saturations are 93% on 8 L high flow nasal cannula. Abdomen soft bowel sounds are heard. No masses or tenderness. Extremities are intact. No cyanosis clubbing or edema. Skin is without rash or lesion. Neurologic examination is brief but nonfocal. - Labs CBC & Chem 7: 04/16/23 08:55 04/16/23 08:55 Assessment and Plan Assessment: Acute hypoxemic respiratory failure secondary to recurrent/persistent left lower lobe pneumonia. Chest x-ray on arrival demonstrates worsening opacities within the left mid and lower lung zones compared to his recent imaging. There was also suspected right lower lung atelectasis, and trace to small bilateral pleural effusions. Also, did test positive for COVID-19, possibly an incidental finding. The patient has also Enterobacter in his sputum and patchy infiltrates are seen in the left upper lobe and the left lower lobe. Rule out malignancy/primary bronchogenic carcinoma. Rule out bacterial infection/pneumonia as the patient was found to have Enterobacter in his sputum. In addition, he has advanced COPD, and a malignant left-sided pleural effusion. No major interval change in his overall condition and oxygenation. The patient remains on Decadron. Repeat chest x-ray from 04/05/2023 shows a stable peripheral left lung pulmonary infiltrate and small bilateral pleural effusions. The patient continues to require 9 L high flow nasal cannula to maintain a oxygenation saturation above 90%. Leukocytosis, secondary to above. Acute COPD exacerbation, secondary to above. Recent diagnosis of metastatic pulmonary adenocarcinoma based on pleural fluid cytology from a left-sided thoracentesis 03/11/23. History of right apical lung nodule measuring 10 x 7 mm June,. Benign essential hypertension. Hyperlipidemia. GERD. Chronic ongoing tobacco dependence. Plan: Plan dated 03/25/2023. The patient's labs, x-rays, and medications are all reviewed. The patient goes between BiPAP, in the AIRVO, for respiratory support. He is currently a full code. The patient's antibiotics and other medications will be continued. Oncology will be consulted. The patient will continue with DVT and GI prophylaxis. The patient's overall prognosis remains very guarded given all of his medical issues. We will continue to follow make recommendations along the way. The patient remains on antibiotics. Plan dated 03/26/2023. The patient is seen today in room 368. The patient remains on AIRVO at the current time, at 60 L/m, with an FiO2 of 90%. The patient remains a full code. A chest x-ray will be ordered for March 27. Labs, x-rays, and medications are reviewed. The patient remains on albuterol, Symbicort, and Decadron, and the patient's also on vitamin C, vitamin D3, and zinc. We will continue to follow make recommendations along the way. Prognosis is guarded. Plan dated 03/27/2023. The patient is seen again in room 368. Clinically, he appears relatively stable, even though he is on AIRVO and 60 L/m, with an FiO2 of 90%. The patient remains a full code. Labs, x-rays, medications are reviewed. The patient continues on appropriate medications including albuterol inhaler, Symbicort inhaler, Decadron, vitamin C, vitamin D3, and zinc. Additional recommendations and suggestions are forthcoming. Prognosis is guarded. The chest x-ray, according to the radiologist, may be slightly improved. Plan dated 03/28/2023. The patient is seen today in room 368. He continues on AIRVO, at 60 L/m, with an FiO2 of 90%. His saturations ranged from 90% as a low, up to 95% has a high. Labs, x-rays, and medications are reviewed. The patient continues on appropriate medications. The chest x-ray dated March 27, apparently is read/ interpreted by the radiologist showing improvement. I thought there was no significant change. Patient continues on appropriate medications including bronchodilators, steroids, and vitamins. Prognosis is certainly guarded. Plan dated 03/29/2023. The patient appears to be doing reasonably well. When asked, the patient feels like he is getting better. Labs, x-rays, and medications are reviewed. The patient's currently on albuterol inhaler, vitamins, Symbicort, and Decadron. We will continue to follow make recommendations along the way. Prognosis is certai nly guarded, given his need for higher concentrations of oxygen. Plan dated 03/30/2023. The patient's labs, x-rays, and medications are reviewed. He'll follow-up x- rays ordered for tomorrow, March 31. The patient continues on saline at 75 mL an hour. Currently, he is on AIRVO, at 60 L/m for a flow rate, and FiO2 of 80%. On those settings, her saturations are 98%, which is an improvement. Additional recommendations and suggestions are forthcoming. We will continue to follow and make recommendations along the way. Plan dated 04/14/2023. The patient is seen today in room 368. He continues on high flow nasal cannula. He is currently a DO NOT RESUSCITATE patient. I saw him last back on March 30, and he looks weaker, and more frail appearing. Labs, x-rays, and medications are reviewed. The patient's medications are reviewed and are appropriate. Prognosis is certainly very guarded. Plan dated 04/15/2023. The patient has been weaned down to a liter high flow nasal cannula. The patient is seen today in room 368. He feels better, and feels like his breathing is improved. The patient is a DO NOT RESUSCITATE patient. Labs, x- rays, and medications are reviewed. The patient has been here in the hospital now for 23 days. We will continue to follow make recommendations along the way. Prognosis is certainly guarded. Plan dated 04/16/2023. Currently, the patient appears to be doing better each day. He's been weaned down to 7 L high flow nasal cannula. His saturations are in the low 90s. Labs, x-rays, and medications are reviewed. The patient is a DO NOT RESUSCITATE patient. The patient has now been in the hospital for 24 days. The patient's overall prognosis remains guarded. We will continue to follow the patient, and make recommendations along the way. Plan dated 04/17/2023. The patient continues on high flow nasal cannula. From time to time, his saturations drop, with the nurses her respiratory therapist either increase or decrease his flow rates. The patient clinically looks stable. A chest x-ray is ordered for tomorrow. The patient is a DO NOT RESUSCITATE patient. No additional recommendations and suggestions are forthcoming. Labs, x-rays, and medications are reviewed. The patient's getting close to discharge. Time with Patient: Less than 30
[2023-04-17] MEDS ORDERED: FUROSEMIDE 10 MG/ML 10 ML VIAL IV STA (16:15)
[2023-04-17] MEDS: ATORVASTATIN 20 MG TAB PO SCH (19:45)
[2023-04-18] MEDS: MIDODRINE 5 MG TAB PO SCH ×2 (06:15→16:52)
[2023-04-18] MEDS: PANTOPRAZOLE 40 MG TABLET PO SCH (06:16)
[2023-04-18] MEDS: droNABinol 2.5 MG CAP PO SCH (06:16)
[2023-04-18] MEDS: ALBUTEROL HFA INHALER INHALATION SCH ×4 (08:29→21:53)
[2023-04-18] MEDS: SYMBICORT 160-4.5 MCG INHALER INHALATION SCH ×2 (08:29→21:53)
--- NOTE | 2023-04-18 08:34 | XR ---
EXAMINATION TYPE: XR chest 1V portable DATE OF EXAM: 04/18/2023 Comparison: 04/14/2023 Clinical History: 73-year-old male Covid pneumonia Findings: Reverse right shoulder plasty partially visualized. Dextroconvexed scoliosis. Old right-sided rib fra cture deformities. Patchy peripheral basilar opacities, left greater than right persist without signi ficant change. Impression: Patchy peripheral and basilar opacities, left greater than right, without significant change.
[2023-04-18 08:52] LABS: ALT 111 U/L (4-49); AST 34 U/L (17-59); African American GFR (CKD) >90 (>60 ml/min/1.73 sqM); Albumin 2.7 g/dL (3.5-5.0); Alkaline Phosphatase 96 U/L (38-126); Anion Gap 5 mmol/L; Blood Urea Nitrogen 30 mg/dL (9-20); Calcium 8.5 mg/dL (8.4-10.2); Carbon Dioxide 36 mmol/L (22-30); Chloride 95 mmol/L (98-107); Glucose 140 mg/dL (74-99); Magnesium 1.5 mg/dL (1.6-2.3); Non-African American GFR(CKD) >90 (>60 ml/min/1.73 sqM); Potassium 3.8 mmol/L (3.5-5.1); Sodium 136 mmol/L (137-145); Total Bilirubin 0.7 mg/dL (0.2-1.3); Total Protein 5.8 g/dL (6.3-8.2)
[2023-04-18] MEDS ORDERED: Magnesium Replacement Protocol 1 EACH MISC MISCELLANE PRN (09:01)
[2023-04-18] MEDS: DEXAMETHASONE SOD PHOSPHATE 10 MG/ML 1 ML VIAL IVP SCH (09:03)
[2023-04-18] MEDS: HEPARIN SODIUM,PORCINE 5,000 UNIT/ML 1 ML VIAL SQ SCH ×2 (09:03→15:20)
[2023-04-18 09:04] LABS: Basophils % (A) 0 %; Eosinophils # (A) 0.2 k/uL (0-0.7); Eosinophils % (A) 1 %; HCT 33.7 % (39.0-53.0); HGB 11.2 gm/dL (13.0-17.5); Lymphocytes # (A) 0.6 k/uL (1.0-4.8); Lymphocytes % (A) 3 %; MCH 29.8 pg (25.0-35.0); MCHC 33.2 g/dL (31.0-37.0); MCV 89.9 fL (80.0-100.0); Mean Platelet Volume 8.4; Monocytes # (A) 0.4 k/uL (0-1.0); Monocytes % (A) 3 %; Neutrophils # (A) 16.2 k/uL (1.3-7.7); Neutrophils % (A) 93 %; Platelet Count 211 k/uL (150-450); RBC 3.76 m/uL (4.30-5.90); RDW 15.3 % (11.5-15.5); WBC 17.5 k/uL (3.8-10.6)
[2023-04-18] MEDS: ESCITALOPRAM 10 MG TAB PO SCH (09:04)
[2023-04-18] MEDS: FUROSEMIDE 40 MG TAB PO SCH (09:04)
[2023-04-18] MEDS: DOCUSATE 100 MG CAP PO SCH ×2 (09:04→21:10)
[2023-04-18] MEDS: FAMOTIDINE 20 MG TAB PO SCH (09:04)
[2023-04-18] MEDS: CHOLECALCIFEROL 25 MCG (1000 IU) TABLET PO SCH (09:04)
[2023-04-18] MEDS: guaiFENesin 600 MG TABLET.ER PO SCH ×2 (09:04→21:10)
[2023-04-18] MEDS: ASPIRIN 81 MG PO SCH (09:04)
[2023-04-18] MEDS: ASCORBIC ACID 500 MG TAB PO SCH (09:04)
[2023-04-18] MEDS: ZINC SULFATE 220 MG CAP PO SCH (09:04)
[2023-04-18] MEDS: POTASSIUM CHLORIDE ER 10 MEQ TAB.ER.PRT PO SCH (09:04)
[2023-04-18] MEDS ORDERED: MAGNESIUM SULFATE-D5W PMX 1 GM in DEXTROSE/WATER 1 100ML.BAG IVPB SCH (09:15)
[2023-04-18] MEDS: SODIUM CHLORIDE 0.9% 1,000 ML IV SCH ×2 (12:44→13:02)
[2023-04-18] MEDS: DEXTROSE 5%-0.9% NACL 1,000 ML IV SCH ×2 (12:44→16:41)
--- NOTE | 2023-04-18 12:45 | P.PN ---
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 Maintained on covid cocktail.Currently maintaining O2 sats in the 90s on airvo flow 60 and Fio2 90. BiPAP at bedside. Reports fatigue, weakness. Afebrile. Pro-calcitonin 0.06. Preliminary blood cultures reporting no growth after 24 hours. Denies chest pain, palpitations. 03/26/2023 maintained on airvo, 60 L FIO2 90%, maintaining O2 sats in the high 80s to low 90s. Mild anxiety. Denies chest pain, palpitations. Afebrile. Preliminary blood cultures reporting no growth after 48 hours. 03/27/2023 Feels better this morning. Received Xanax last night, rested better. Continues on Airvo 60 L, FiO2 90% and maintaining O2 sats in the high 80s to low 90s. Chest x-ray reporting ongoing bilateral pleural personal opacity slough greater than right, possibly slight improvement right base. These Bicarb 39, BUN 18, creatinine 0.48. Hemoglobin 14.8, platelets 168. Preliminary blood cultures reporting no growth after 72 hours. Afebrile. [employer] increased to 18.6. Blood sugars controlled. 03/28/2023 maintained on Airvo 60 L, FiO2 90%, O2 sats fluctuates from high 80s to high 90s. Diet intake poor, consumed 25% of breakfast. Denies nausea, vomiting. Denies abdominal pain. Continues on COvid Cocktail. Afebrile. Preliminary blood cultures reporting no growth after 72 hours. Feels discouraged . 04/07/23 afebrile, continues on cefepime, Decadron. Maintained on airvo 60 L/70% FiO2 maintaining O2 sats in the mid 90s. Diet intake including HS snacks, supplement intake poor, on Marinol. 04/08/2023 continues on airvo 60 L/70% FiO2 maintaining O2 sats in the low 90s. Maintained on antibiotics of cefepime and Covid cocktail. Afebrile. Fatigued. 04/09/2023 . Staff reports mild confusion during the night, resolved this morning. Continues on Marinol, diet intake ranging from 25-50%, usually 0% at breakfast. Borderline hypotension, antihypertensives held. Continues on Airvo 60 L/66% FiO2. Continues on antibiotics, cefepime, diuretics and Covid cocktail, Decadron. Afebrile, WBC 18.4. Hemoglobin 12.8, platelets 143. Sodium 136, potassium 4.8. Bicarb decreased to 39. BUN 49, creatinine 0.4. blood sugars controlled. 04/10/2023 sitting up in chair, remains off of airvo, continues on 15 L high flow nasal cannula, maintaining O2 sats in the low 90s. Borderline hypotension. Chest x-ray reported improving patchy left perihilar and peripheral infiltrate persists with pleural thickening, right basilar atelectasis or additional infiltrate. Maintained on cefepime, afebrile, WBC 18.4. Renal function stable. 04/11/2023 sitting up in chair, she decreased to 13 L high flow nasal cannula maintaining O2 sats in the low 90s. More alert today, Marinol dose decreased yesterday. Significant weakness, barely able to stand without assistance. Continues on Cefepime, Decadron, WBC 26, afebrile. Evaluated by cardiology related to abnormal EKG/ ST elevation, asymptomatic. Denies chest pain, palpitations. 2-D echo ordered. 04/15/2023 maintaining O2 sats in the high 80s to low 90s on 8 L high flow nasal cannula. Afebrile, T-max 99.7. PT reports patient was able to ambulate 10 feet with assist. Denies chest pain, palpitation. Echo completed reporting normal LV function, 50-55%, mild aortic sclerosis without significant aortic stenosis. 04/16/2023 maintaining O2 sats in the low 90s on 7 L high flow nasal cannula. Tachycardic, heart rate in the low 100s to 1 teens, currently. Afebrile, WBC trending down, 17.2. Hemoglobin 11.8, platelets 190. Renal function improving. Magnesium 1.6. Denies chest pain, palpitations. 04/17/23 maintaining O2 sats in the low 90s on 8 L high flow nasal cannula . Occasional productive cough.Tachycardic, 1 teens. Afebrile. Diet Intake improving. Denies Chest pain, palpitations. 04/18/2023 currently maintaining O2 sats of 94% on 8 L high flow nasal cannula, mild tachycardia. Afebrile, WBC 17.5. Diet intake around 50%. Denies chest pain, palpitations. Magnesium 1.5, supplements ordered. Objective - Vital Signs Vital signs: Vital Signs Temp 98.2 F 04/18/23 08:00 Pulse 113 H 04/18/23 08:00 Resp 18 04/18/23 08:00 BP 94/59 04/18/23 08:00 Pulse Ox 94 L 04/18/23 08:00 FiO2 66 04/09/23 08:18 Intake & Output 04/17/23 04/18/23 04/18/23 18:59 06:59 18:59 Intake Total 600 540 360 Output Total 400 Balance 200 540 360 Weight 74.389 kg Intake: Intake, IV Titration 600 Amount Sodium Chloride 0.9% 1, 600 000 ml @ 20 mls/hr IV . Q24H [facility] Rx#:[id number] Oral 540 360 Output: Urine 400 Other: Voiding Method Urinal Urinal Urinal # Bowel Movements 1 - Exam General: Patient awake, alert and oriented times 3,sitting up in chair,On high flow nasal cannula HEENT: Normocephalic, PERRL. EOMI. Neck: supple,No JVD. Cardiac: Regular S1 and S2. No S3. No S4. No clicks, rubs. No murmur. Lungs: Equal air entry ,Diminished bilateral breath sounds,fine basilar crackles Abdomen: Soft, nontender, no guarding. Positive Bowel sounds. Extremes: [No edema, no cyanosis no claudication normal pulses. Skin: [No rash, warm and dry.] Neurologic: CN II - XII grossly intact. - Labs CBC & Chem 7: 04/18/23 08:10 04/18/23 08:10 Labs: Abnormal Lab Results - Last 24 Hours (Table) 09/29/23 09/29/23 Range/Units 08:10 08:10 WBC 17.5 H (3.8-10.6) k/uL RBC 3.76 L (4.30-5.90) m/uL Hgb 11.2 L (13.0-17.5) gm/dL Hct 33.7 L (39.0-53.0) % Neutrophils # 16.2 H (1.3-7.7) k/uL Lymphocytes # 0.6 L (1.0-4.8) k/uL Sodium 136 L (137-145) mmol/L Chloride 95 L (98-107) mmol/L Carbon Dioxide 36 H (22-30) mmol/L BUN 30 H (9-20) mg/dL Creatinine 0.37 L (0.66-1.25) mg/dL Glucose 140 H (74-99) mg/dL Magnesium 1.5 L (1.6-2.3) mg/dL ALT 111 H (4-49) U/L Total Protein 5.8 L (6.3-8.2) g/dL Albumin 2.7 L (3.5-5.0) g/dL Assessment and Plan Assessment: Assessment and Plan (1) Acute respiratory failure with hypoxia Current Visit: Yes Status: Acute Code(s): J96.01 - ACUTE RESPIRATORY FAILURE WITH HYPOXIA SNOMED Code(s): 08156483 (2) COPD (chronic obstructive pulmonary disease) Current Visit: Yes Status: Acute Code(s): J44.9 - CHRONIC OBSTRUCTIVE PULMONARY DISEASE, UNSPECIFIED SNOMED Code(s): 56825735 (3) COVID-19 Current Visit: Yes Status: Acute Code(s): U07.1 - COVID-19 SNOMED Code(s): 164884133 (4) Pneumonia, sputum cultures reporting Enterobacter aerogenes Current Visit: Yes Status: Acute Code(s): J18.9 - PNEUMONIA, UNSPECIFIED ORGANISM SNOMED Code(s): 855741152 (5) Acute and chronic respiratory failure ([id number]) Current Visit: No Status: Acute Code(s): J96.20 - ACUTE AND CHR RESP FAILURE, UNSP W HYPOXIA OR HYPERCAPNIA SNOMED Code(s): 19579117 (6) Adenocarcinoma of lung Current Visit: No Status: Acute Priority: High Code(s): C34.90 - MALIGNANT NEOPLASM OF UNSP PART OF UNSP BRONCHUS OR LUNG SNOMED Code(s): 571860176 (7) Atherosclerosis of abdominal aorta Current Visit: No Status: Acute Code(s): I70.0 - ATHEROSCLEROSIS OF AORTA SNOMED Code(s): 530881700 (8) No code, No CPR, No intubation Plan: Continue on current medication regime ,monitoring and symptomatic treatment.maintain dexamethasone, aggressive pulmonary toileting ,bronchodilators. PT. discharge planning in progress for [facility] pending able to maintain satisfactory O2 sats on 5lnc or less. Prognosis guarded given multiple complex medical issues. The impression and plan of care has been dictated as directed. : I performed a history and examination of this patient, discussed the same with the dictator. I agree with the dictator's note ,documented as a scribe. Any additional findings or plans will be noted.
[2023-04-18] MEDS: MAGNESIUM SULFATE-D5W PMX 1 GM in DEXTROSE/WATER 1 100ML.BAG IVPB SCH ×2 (12:50→15:21)
--- NOTE | 2023-04-18 13:09 | P.PN ---
Subjective Progress Note Date: 04/18/23 Principal diagnosis: Hypoxemic respiratory failure. I am seeing this patient in new consultation today 03/24/2023 for suspected left lower lobe pneumonia. Patient is a 73-year-old white male with past medical history significant for recent admission with left lower lobe pneumonia, discharged on March 17. During this admission, the patient was also found to have metastatic adenocarcinoma of the lung based on pleural fluid cytology from a left sided thoracentesis. He also has history of COPD, hypertension, hyperlipidemia, GERD, and ongoing chronic tobacco dependence. Patient is known to have a 10 mm x 7mm right upper lung nodule, originally seen back in June,. His PCP is Dr. Nichols. Chest CT from his most recent admission, March 07, demonstrated a right upper lung bronchus large airway occlusion concerning for obstructive mass. There was also a loculated left pleural effusion with left lung consolidation. The patient was treated with IV antibiotics and discharged home on Augmentin. He was established with an oncologist, and is reportedly going to undergo a PET scan outpatient. Patient returned to the emergency room last night, reporting that he's had ongoing progressively worsening shortness of breath since discharge. He admits an associated nonproductive cough. Denies any fever, chills, myalgias, hemoptysis. Denies any chest pain, palpitations, lower extremity edema, syncope. A chest x-ray done on arrival, showed worsening airspace opacities within the left mid and lower lung zones compared to prior imaging. There was also suspected right lower lung atelectasis, and trace to small bilateral pleural effusions. Patient did test positive for COVID-19, possibly an incidental finding. Patient is currently sitting up in bed, on BiPAP with settings 12/6 and FiO2 of 60%. Appears fairly comfortable. Respiratory rate is high 20s to low 30s and is achieving tidal volumes around 400. CBC on arrival shows leukocytosis with WBC count of 16.9, hemoglobin 14.7, hematocrit 45.4, platelets 150. BMP shows sodium 133, potassium 4.1, chloride 92, serum bicarbonate 39, BUN 17, creatinine 0.43, glucose 99. Currently receiving normal saline at 100 ML's per hour. He was started on empiric Zosyn and azithromycin. Currently afebrile. Also receiving Ventolin HFA, Symbicort inhaler, and IV Decadron. Patient is being monitored closely on the cardiac stepdown unit. Progress note dated 03/25/2023. 73-year-old male admitted on March 24, with a diagnosis of possible left lower lobe pneumonia, and hypoxemic respiratory failure. Currently, the patient is on BiPAP, with settings of 12/6, and 70%. He has no IV fluids running at this time. He did test positive for coronavirus. He does have a history of lung cancer, adenocarcinoma. The only labs today include glucose of 110. Chest x-ray from March 24, shows a small to moderate-sized left pleural effusion, with increased small right pleural effusion. There is also some right lower lung consolidation. Progress note dated 03/26/2023. 73-year-old male admitted on March 24, with a diagnosis of possible left lower lobe pneumonia and hypoxemic respiratory failure. The patient is currently on AIRVO, with settings of 60 L/m and an FiO2 of 90%. He's not receiving any IV fluids. A chest x-ray is ordered for March 27. The only lab today with a glucose of 111. Clinically, the patient's doing about the same. Blood cultures are currently negative. Progress note dated 03/27/2023. The patient is seen today in room 368. He continues on AIRVO, with settings of 60 L/m, with an FiO2 of 90%. The chest x-ray done today, shows worsening infiltrates. Clinically, the patient appears reasonably stable. White count 18.6, hemoglobin 10.8, hematocrit 46.2, and platelet count was normal. Sodium 139, potassium 4.6, chlorides 96, CO2 39, BUN 18, and creatinine 0.48. Blood cultures are negative. Chest x-ray shows bilateral pleural/parenchymal opacities, left greater than right. Radiologist feels there may be some improvement. Progress note dated 03/28/2023. This is a 74-year-old male seen in room 368. The patient continues on AIRVO, at 60 L/m, and an FiO2 of 90%. The patient does feel better. He's not receiving any IV fluids. Labs today include only a glucose of 89. As mentioned yesterday, the chest x-ray, as interpreted by the radiologist, suggests some improvement. Progress note dated 03/29/2023. The patient is seen today in room 368. He continues on AIRVO, at 60 L/m, with an FiO2 of 90%. He is getting D5 with normal saline, at 50 mL an hour. She does feel like he is getting better. He looks relatively stable, and his respiratory status, despite being on AIRVO, appears stable. White count is 15.2, with a normal hemoglobin, hematocrit, and platelet count. Sodium 140, potassium 4.4, chlorides 99, CO2 39, BUN 25, and creatinine 0.43. Progress note dated 03/30/2023. The patient is seen today in room 368. He is on AIRVO, with settings of 60 L/m, for flow rate, and an FiO2, that has been dropped down to 80%. The patient continues on saline at 75 mL an hour. Chest x-ray ordered for tomorrow, March 31. No new labs today, other than a glucose of 99. 04/06 2023, no major improvement and the patient remains on high flow oxygen at 60 L an FiO2 of 70%. Continues to be on Decadron. Continues to be on cefepime. Most recent chest x-ray from 04/05/2023 showed stable findings. He is a DNR/DNI CODE STATUS. The patient is seen today 04/07/2023 in follow-up on the selective care unit. He is currently sitting up in bed. He is quite weak and debilitated. He continues to require AirVo high flow oxygen at 60 L and 70% FiO2 with O2 saturation in the 90s. Sputum culture was positive for Enterobacter aerogenes. The cultures revealed no growth. Blood sugar 135. He remains on Symbicort, albuterol, Decadron and vitamin supplements. Heparin for DVT prophylaxis. Antibiotics in the form of cefepime. Family is considering comfort care/hospice. The patient is seen today 04/08/2023 in follow-up on the selective care unit. He is awake. Quite weak and debilitated. He remains on AirVo high flow oxygen at 60 L and 70% FiO2. Sputum culture was positive for Enterobacter aerogenes. Blood cultures revealed no growth. Glucose 113. He is continued on Symbicort, albuterol, vitamin supplements. She remains on Decadron. Antibiotics in the form of cefepime. Remains on diuretics. Currently in a negative balance. The patient is seen today 04/09/2023 in follow-up on the selective care unit. He remains awake and alert. Resting in bed. Still requiring AirVo high flow nasal cannula at 60 L and 65% FiO2. Sputum culture positive for Enterobacter aerogenes. Blood cultures reveal no growth. White count 18.4. Hemoglobin 12.8. Platelets 143. Sodium 136. Potassium 4.8. Bicarb. 9. BUN 49. Creatinine 0.40. AST 46. ALT 108. Albumin 2.9. He is continued on Symbicort, albuterol, vitamin supplements. She remains on Decadron. Antibiotics in the form of cefepime. Remains on diuretics. The patient is seen today 04/13/2023 in follow-up on the selective care unit. He is sitting up in a chair at the bedside. Awake and alert in no acute distress. Is currently on 9 L high flow nasal cannula with O2 saturations in the 90s. He's been afebrile. Hemodynamically stable. Sputum culture was positive for Enterobacter aerogenes. Blood cultures reveal no growth. Sodium 136. Potassium 4.5. Bicarb 38. BUN 49. Creatinine 0.52. Glucose 129. He is continued on Symbicort, albuterol, Decadron. Heparin for DVT prophylaxis. Remains on vitamin supplements. Progress note dated 04/14/2023. The patient is seen today in room 368. The patient has not been in the hospital for 22 days. Currently, the patient remains on saline at 50 mL an hour, and nasal cannula high flow, at 9 L. The patient is a DO NOT RESUSCITATE patient. The patient is very frail and weak appearing. Labs today include a sodium 138, potassium 4.4, chlorides 96, CO2 39, BUN 55, and creatinine 0.6. Chest x-ray shows a left multifocal airspace opacity, and stable trace bilateral effusions. The chest x-rays essentially unchanged. Progress note dated 04/15/2023. The patient is seen today in room 368. Currently, the patient appears to be doing slightly bit better. The patient is currently on saline at 50 mL an hour, and is getting a liters oxygen, high flow. Awake and alert, sitting upright in bed. The nurses are in the room with him. He states that his breathing is improved. She does have a bit of a wet/congested cough. No new labs today. The chest x-ray from April 14 has been reviewed. Progress note dated 04/16/2023. The patient is seen again in room 368. Currently, the patient has been weaned d own to 7 L by nasal cannula. The patient is receiving saline at 50 mL an hour. Clinically, he appears to get better each day, albeit very slowly. White count is 17.2 down from 24.7. Hemoglobin 11.8, hematocrit 35.6, with a normal platelet count. Sodium 136, potassium 4.3, chlorides 100, CO2 35, BUN 37, and creatinine 0.42. Progress note dated 04/17/2023. 73-year-old male, who is now been in the hospital, for 25 days. The patient is seen today in room 368. The patient's on saline at 75 mL an hour. A chest x- rays were ordered for tomorrow. He continues on high flow nasal cannula, at 8 liters per minute. No new labs today. The patient looks about the same today as he did yesterday. Progress note dated 04/18/2023. The patient is again seen in room 368. He's about the same as it was last couple of days. He's been between 7 and 8 L high flow nasal O2. He is getting saline at 20 mL an hour. The patient clinically looks stable. He does not appear to be short of breath. There is no conversational dyspnea or use of accessory muscles. White count 17.5, hemoglobin 11.2, hematocrit 33.7, within normal platelet count. Sodium 136, potassium 3.8, chlorides 95, CO2 36, BUN 30, creatinine 0.37. Chest x-ray shows bilateral patchy infiltrates, left greater than right, without significant change. Objective - Vital Signs Vital signs: Vital Signs Temp 98.2 F 04/18/23 08:00 Pulse 117 H 04/18/23 12:00 Resp 18 04/18/23 12:00 BP 98/63 04/18/23 12:00 Pulse Ox 94 L 04/18/23 12:00 FiO2 66 04/09/23 08:18 Intake & Output 04/17/23 04/18/23 04/18/23 18:59 06:59 18:59 Intake Total 600 540 360 Output Total 400 Balance 200 540 360 Weight 74.389 kg Intake: Intake, IV Titration 600 Amount Sodium Chloride 0.9% 1, 600 000 ml @ 20 mls/hr IV . Q24H [facility] Rx#:[id number] Oral 540 360 Output: Urine 400 Other: Voiding Method Urinal Urinal Urinal # Bowel Movements 1 - Exam No acute distress, oriented 3. The patient is on high flow nasal cannula 8 L/m. HEENT examination is grossly unremarkable. Neck supple. Full range of motion. No adenopathy thyromegaly or neck vein distention. Cardiovascular examination reveals regular rhythm rate. S1-S2 normal. No S3 or S4. Heart rate is 115 bpm. Heart sounds are distant. Lungs reveal scattered rhonchi, with a few scattered bibasilar crackles. No wheezes. Breath sounds are equal bilaterally. Saturations are 94 % on 8 L high flow nasal cannula. Abdomen soft bowel sounds are heard. No masses or tenderness. Extremities are intact. No cyanosis clubbing or edema. Skin is without rash or lesion. Neurologic examination is brief but nonfocal. - Labs CBC & Chem 7: 04/18/23 08:10 04/18/23 08:10 Labs: Abnormal Lab Results - Last 24 Hours (Table) 04/18/23 04/18/23 Range/Units 08:10 08:10 WBC 17.5 H (3.8-10.6) k/uL RBC 3.76 L (4.30-5.90) m/uL Hgb 11.2 L (13.0-17.5) gm/dL Hct 33.7 L (39.0-53.0) % Neutrophils # 16.2 H (1.3-7.7) k/uL Lymphocytes # 0.6 L (1.0-4.8) k/uL Sodium 136 L (137-145) mmol/L Chloride 95 L (98-107) mmol/L Carbon Dioxide 36 H (22-30) mmol/L BUN 30 H (9-20) mg/dL Creatinine 0.37 L (0.66-1.25) mg/dL Glucose 140 H (74-99) mg/dL Magnesium 1.5 L (1.6-2.3) mg/dL ALT 111 H (4-49) U/L Total Protein 5.8 L (6.3-8.2) g/dL Albumin 2.7 L (3.5-5.0) g/dL Assessment and Plan Assessment: Acute hypoxemic respiratory failure secondary to recurrent/persistent left lower lobe pneumonia. Chest x-ray on arrival demonstrates worsening opacities within the left mid and lower lung zones compared to his recent imaging. There was also suspected right lower lung atelectasis, and trace to small bilateral pleural effusions. Also, did test positive for COVID-19, possibly an incidental finding. The patient has also Enterobacter in his sputum and patchy infiltrates are seen in the left upper lobe and the left lower lobe. Rule out malignanc y/primary bronchogenic carcinoma. Rule out bacterial infection/pneumonia as the patient was found to have Enterobacter in his sputum. In addition, he has advanced COPD, and a malignant left-sided pleural effusion. No major interval change in his overall condition and oxygenation. The patient remains on Decadron. Repeat chest x-ray from 04/05/2023 shows a stable peripheral left lung pulmonary infiltrate and small bilateral pleural effusions. The patient continues to require 9 L high flow nasal cannula to maintain a oxygenation saturation above 90%. Leukocytosis, secondary to above. Acute COPD exacerbation, secondary to above. Recent diagnosis of metastatic pulmonary adenocarcinoma based on pleural fluid cytology from a left-sided thoracentesis 03/11/23. History of right apical lung nodule measuring 10 x 7 mm June,. Benign essential hypertension. Hyperlipidemia. GERD. Chronic ongoing tobacco dependence. Plan: Plan dated 03/25/2023. The patient's labs, x-rays, and medications are all reviewed. The patient goes between BiPAP, in the AIRVO, for respiratory support. He is currently a full code. The patient's antibiotics and other medications will be continued. Oncology will be consulted. The patient will continue with DVT and GI prophylaxis. The patient's overall prognosis remains very guarded given all of his medical issues. We will continue to follow make recommendations along the way. The patient remains on antibiotics. Plan dated 03/26/2023. The patient is seen today in room 368. The patient remains on AIRVO at the current time, at 60 L/m, with an FiO2 of 90%. The patient remains a full code. A chest x-ray will be ordered for March 27. Labs, x-rays, and medications are reviewed. The patient remains on albuterol, Symbicort, and Decadron, and the patient's also on vitamin C, vitamin D3, and zinc. We will continue to follow make recommendations along the way. Prognosis is guarded. Plan dated 03/27/2023. The patient is seen again in room 368. Clinically, he appears relatively stable, even though he is on AIRVO and 60 L/m, with an FiO2 of 90%. The patient remains a full code. Labs, x-rays, medications are reviewed. The patient continues on appropriate medications including albuterol inhaler, Symbicort inhaler, Decadron, vitamin C, vitamin D3, and zinc. Additional recommendations and suggestions are forthcoming. Prognosis is guarded. The chest x-ray, according to the radiologist, may be slightly improved. Plan dated 03/28/2023. The patient is seen today in room 368. He continues on AIRVO, at 60 L/m, with an FiO2 of 90%. His saturations ranged from 90% as a low, up to 95% has a high. Labs, x-rays, and medications are reviewed. The patient continues on appropriate medications. The chest x-ray dated March 27, apparently is read/ interpreted by the radiologist showing improvement. I thought there was no significant change. Patient continues on appropriate medications including b ronchodilators, steroids, and vitamins. Prognosis is certainly guarded. Plan dated 03/29/2023. The patient appears to be doing reasonably well. When asked, the patient feels like he is getting better. Labs, x-rays, and medications are reviewed. The patient's currently on albuterol inhaler, vitamins, Symbicort, and Decadron. We will continue to follow make recommendations along the way. Prognosis is certainly guarded, given his need for higher concentrations of oxygen. Plan dated 03/30/2023. The patient's labs, x-rays, and medications are reviewed. He'll follow-up x- rays ordered for tomorrow, March 31. The patient continues on saline at 75 mL an hour. Currently, he is on AIRVO, at 60 L/m for a flow rate, and FiO2 of 80%. On those settings, her saturations are 98%, which is an improvement. Additional recommendations and suggestions are forthcoming. We will continue to follow and make recommendations along the way. Plan dated 04/14/2023. The patient is seen today in room 368. He continues on high flow nasal cannula. He is currently a DO NOT RESUSCITATE patient. I saw him last back on March 30, and he looks weaker, and more frail appearing. Labs, x-rays, and medications are reviewed. The patient's medications are reviewed and are appropriate. Prognosis is certainly very guarded. Plan dated 04/15/2023. The patient has been weaned down to a liter high flow nasal cannula. The patient is seen today in room 368. He feels better, and feels like his b reathing is improved. The patient is a DO NOT RESUSCITATE patient. Labs, x- rays, and medications are reviewed. The patient has been here in the hospital now for 23 days. We will continue to follow make recommendations along the way. Prognosis is certainly guarded. Plan dated 04/16/2023. Currently, the patient appears to be doing better each day. He's been weaned down to 7 L high flow nasal cannula. His saturations are in the low 90s. Labs, x-rays, and medications are reviewed. The patient is a DO NOT RESUSCITATE patient. The patient has now been in the hospital for 24 days. The patient's overall prognosis remains guarded. We will continue to follow the patient, and make recommendations along the way. Plan dated 04/17/2023. The patient continues on high flow nasal cannula. From time to time, his saturations drop, with the nurses her respiratory therapist either increase or decrease his flow rates. The patient clinically looks stable. A chest x-ray is ordered for tomorrow. The patient is a DO NOT RESUSCITATE patient. No additional recommendations and suggestions are forthcoming. Labs, x-rays, and medications are reviewed. The patient's getting close to discharge. Plan dated 04/18/2023. The patient continues on high flow nasal cannula at 8 L. Currently looks about the same. His chest x-ray really hasn't changed. From my perspective, the patient could be considered for possible discharge. The only thing holding up discharge, is his need for oxygen at 8 L. Hopefully when we get him down to 5 L, he can be sent home or to rehab. Clinically he appears somewhat weak. Labs, x-rays, medications are reviewed prognosis is guarded. Time with Patient: Less than 30
[2023-04-18] MEDS: POTASSIUM CHLORIDE ER 20 MEQ TAB.ER PO SCH ×2 (15:20→16:52)
[2023-04-18] MEDS: ATORVASTATIN 20 MG TAB PO SCH (21:10)
[2023-04-19] MEDS: HEPARIN SODIUM,PORCINE 5,000 UNIT/ML 1 ML VIAL SQ SCH ×4 (00:20→23:32)
[2023-04-19] MEDS: PANTOPRAZOLE 40 MG TABLET PO SCH (06:22)
[2023-04-19] MEDS: MIDODRINE 5 MG TAB PO SCH ×2 (06:22→16:42)
[2023-04-19] MEDS: droNABinol 2.5 MG CAP PO SCH (06:22)
[2023-04-19] MEDS: ALBUTEROL HFA INHALER INHALATION SCH ×4 (08:00→21:18)
[2023-04-19] MEDS: SYMBICORT 160-4.5 MCG INHALER INHALATION SCH ×2 (08:00→21:18)
[2023-04-19] MEDS: guaiFENesin 600 MG TABLET.ER PO SCH ×2 (09:27→21:26)
[2023-04-19] MEDS: CHOLECALCIFEROL 25 MCG (1000 IU) TABLET PO SCH (09:27)
[2023-04-19] MEDS: POTASSIUM CHLORIDE ER 10 MEQ TAB.ER.PRT PO SCH (09:27)
[2023-04-19] MEDS: FAMOTIDINE 20 MG TAB PO SCH (09:27)
[2023-04-19] MEDS: FUROSEMIDE 40 MG TAB PO SCH (09:27)
[2023-04-19] MEDS: ASPIRIN 81 MG PO SCH (09:27)
[2023-04-19] MEDS: ESCITALOPRAM 10 MG TAB PO SCH (09:27)
[2023-04-19] MEDS: ZINC SULFATE 220 MG CAP PO SCH (09:27)
[2023-04-19] MEDS: ASCORBIC ACID 500 MG TAB PO SCH (09:28)
[2023-04-19] MEDS: DEXAMETHASONE SOD PHOSPHATE 10 MG/ML 1 ML VIAL IVP SCH (09:28)
[2023-04-19] MEDS: DOCUSATE 100 MG CAP PO SCH ×2 (09:28→21:26)
[2023-04-19] MEDS: SODIUM CHLORIDE 0.9% 1,000 ML IV SCH (11:27)
--- NOTE | 2023-04-19 13:36 | P.PN ---
Subjective Progress Note Date: 04/19/23 Principal diagnosis: Hypoxemic respiratory failure. I am seeing this patient in new consultation today 03/24/2023 for suspected left lower lobe pneumonia. Patient is a 73-year-old white male with past medical history significant for recent admission with left lower lobe pneumonia, discharged on March 17. During this admission, the patient was also found to have metastatic adenocarcinoma of the lung based on pleural fluid cytology from a left sided thoracentesis. He also has history of COPD, hypertension, hyperlipidemia, GERD, and ongoing chronic tobacco dependence. Patient is known to have a 10 mm x 7mm right upper lung nodule, originally seen back in June,. His PCP is Dr. Nichols. Chest CT from his most recent admission, March 07, demonstrated a right upper lung bronchus large airway occlusion concerning for obstructive mass. There was also a loculated left pleural effusion with left lung consolidation. The patient was treated with IV antibiotics and discharged home on Augmentin. He was established with an oncologist, and is reportedly going to undergo a PET scan outpatient. Patient returned to the emergency room last night, reporting that he's had ongoing progressively worsening shortness of breath since discharge. He admits an associated nonproductive cough. Denies any fever, chills, myalgias, hemoptysis. Denies any chest pain, palpitations, lower extremity edema, syncope. A chest x-ray done on arrival, showed worsening airspace opacities within the left mid and lower lung zones compared to prior imaging. There was also suspected right lower lung atelectasis, and trace to small bilateral pleural effusions. Patient did test positive for COVID-19, possibly an incidental finding. Patient is currently sitting up in bed, on BiPAP with settings 12/6 and FiO2 of 60%. Appears fairly comfortable. Respiratory rate is high 20s to low 30s and is achieving tidal volumes around 400. CBC on arrival shows leukocytosis with WBC count of 16.9, hemoglobin 14.7, hematocrit 45.4, platelets 150. BMP shows sodium 133, potassium 4.1, chloride 92, serum bicarbonate 39, BUN 17, creatinine 0.43, glucose 99. Currently receiving normal saline at 100 ML's per hour. He was started on empiric Zosyn and azithromycin. Currently afebrile. Also receiving Ventolin HFA, Symbicort inhaler, and IV Decadron. Patient is being monitored closely on the cardiac stepdown unit. Progress note dated 03/25/2023. 73-year-old male admitted on March 24, with a diagnosis of possible left lower lobe pneumonia, and hypoxemic respiratory failure. Currently, the patient is on BiPAP, with settings of 12/6, and 70%. He has no IV fluids running at this time. He did test positive for coronavirus. He does have a history of lung cancer, adenocarcinoma. The only labs today include glucose of 110. Chest x-ray from March 24, shows a small to moderate-sized left pleural effusion, with increased small right pleural effusion. There is also some right lower lung consolidation. Progress note dated 03/26/2023. 73-year-old male admitted on March 24, with a diagnosis of possible left lower lobe pneumonia and hypoxemic respiratory failure. The patient is currently on AIRVO, with settings of 60 L/m and an FiO2 of 90%. He's not receiving any IV fluids. A chest x-ray is ordered for March 27. The only lab today with a glucose of 111. Clinically, the patient's doing about the same. Blood cultures are currently negative. Progress note dated 03/27/2023. The patient is seen today in room 368. He continues on AIRVO, with settings of 60 L/m, with an FiO2 of 90%. The chest x-ray done today, shows worsening infiltrates. Clinically, the patient appears reasonably stable. White count 18.6, hemoglobin 10.8, hematocrit 46.2, and platelet count was normal. Sodium 139, potassium 4.6, chlorides 96, CO2 39, BUN 18, and creatinine 0.48. Blood cultures are negative. Chest x-ray shows bilateral pleural/parenchymal opacities, left greater than right. Radiologist feels there may be some improvement. Progress note dated 03/28/2023. This is a 74-year-old male seen in room 368. The patient continues on AIRVO, at 60 L/m, and an FiO2 of 90%. The patient does feel better. He's not receiving any IV fluids. Labs today include only a glucose of 89. As mentioned yesterday, the chest x-ray, as interpreted by the radiologist, suggests some improvement. Progress note dated 03/29/2023. The patient is seen today in room 368. He continues on AIRVO, at 60 L/m, with an FiO2 of 90%. He is getting D5 with normal saline, at 50 mL an hour. She does feel like he is getting better. He looks relatively stable, and his respiratory status, despite being on AIRVO, appears stable. White count is 15.2, with a normal hemoglobin, hematocrit, and platelet count. Sodium 140, potassium 4.4, chlorides 99, CO2 39, BUN 25, and creatinine 0.43. Progress note dated 03/30/2023. The patient is seen today in room 368. He is on AIRVO, with settings of 60 L/m, for flow rate, and an FiO2, that has been dropped down to 80%. The patient continues on saline at 75 mL an hour. Chest x-ray ordered for tomorrow, March 31. No new labs today, other than a glucose of 99. 04/06 2023, no major improvement and the patient remains on high flow oxygen at 60 L an FiO2 of 70%. Continues to be on Decadron. Continues to be on cefepime. Most recent chest x-ray from 04/05/2023 showed stable findings. He is a DNR/DNI CODE STATUS. The patient is seen today 04/07/2023 in follow-up on the selective care unit. He is currently sitting up in bed. He is quite weak and debilitated. He continues to require AirVo high flow oxygen at 60 L and 70% FiO2 with O2 saturation in the 90s. Sputum culture was positive for Enterobacter aerogenes. The cultures revealed no growth. Blood sugar 135. He remains on Symbicort, albuterol, Decadron and vitamin supplements. Heparin for DVT prophylaxis. Antibiotics in the form of cefepime. Family is considering comfort care/hospice. The patient is seen today 04/08/2023 in follow-up on the selective care unit. He is awake. Quite weak and debilitated. He remains on AirVo high flow oxygen at 60 L and 70% FiO2. Sputum culture was positive for Enterobacter aerogenes. Blood cultures revealed no growth. Glucose 113. He is continued on Symbicort, albuterol, vitamin supplements. She remains on Decadron. Antibiotics in the form of cefepime. Remains on diuretics. Currently in a negative balance. The patient is seen today 04/09/2023 in follow-up on the selective care unit. He remains awake and alert. Resting in bed. Still requiring AirVo high flow nasal cannula at 60 L and 65% FiO2. Sputum culture positive for Enterobacter aerogenes. Blood cultures reveal no growth. White count 18.4. Hemoglobin 12.8. Platelets 143. Sodium 136. Potassium 4.8. Bicarb. 9. BUN 49. Creatinine 0.40. AST 46. ALT 108. Albumin 2.9. He is continued on Symbicort, albuterol, vitamin supplements. She remains on Decadron. Antibiotics in the form of cefepime. Remains on diuretics. The patient is seen today 04/13/2023 in follow-up on the selective care unit. He is sitting up in a chair at the bedside. Awake and alert in no acute distress. Is currently on 9 L high flow nasal cannula with O2 saturations in the 90s. He's been afebrile. Hemodynamically stable. Sputum culture was positive for Enterobacter aerogenes. Blood cultures reveal no growth. Sodium 136. Potassium 4.5. Bicarb 38. BUN 49. Creatinine 0.52. Glucose 129. He is continued on Symbicort, albuterol, Decadron. Heparin for DVT prophylaxis. Remains on vitamin supplements. Progress note dated 04/14/2023. The patient is seen today in room 368. The patient has not been in the hospital for 22 days. Currently, the patient remains on saline at 50 mL an hour, and nasal cannula high flow, at 9 L. The patient is a DO NOT RESUSCITATE patient. The patient is very frail and weak appearing. Labs today include a sodium 138, potassium 4.4, chlorides 96, CO2 39, BUN 55, and creatinine 0.6. Chest x-ray shows a left multifocal airspace opacity, and stable trace bilateral effusions. The chest x-rays essentially unchanged. Progress note dated 04/15/2023. The patient is seen today in room 368. Currently, the patient appears to be doing slightly bit better. The patient is currently on saline at 50 mL an hour, and is getting a liters oxygen, high flow. Awake and alert, sitting upright in bed. The nurses are in the room with him. He states that his breathing is improved. She does have a bit of a wet/congested cough. No new labs today. The chest x-ray from April 14 has been reviewed. Progress note dated 04/16/2023. The patient is seen again in room 368. Currently, the patient has been weaned d own to 7 L by nasal cannula. The patient is receiving saline at 50 mL an hour. Clinically, he appears to get better each day, albeit very slowly. White count is 17.2 down from 24.7. Hemoglobin 11.8, hematocrit 35.6, with a normal platelet count. Sodium 136, potassium 4.3, chlorides 100, CO2 35, BUN 37, and creatinine 0.42. Progress note dated 04/17/2023. 73-year-old male, who is now been in the hospital, for 25 days. The patient is seen today in room 368. The patient's on saline at 75 mL an hour. A chest x- rays were ordered for tomorrow. He continues on high flow nasal cannula, at 8 liters per minute. No new labs today. The patient looks about the same today as he did yesterday. Progress note dated 04/18/2023. The patient is again seen in room 368. He's about the same as it was last couple of days. He's been between 7 and 8 L high flow nasal O2. He is getting saline at 20 mL an hour. The patient clinically looks stable. He does not appear to be short of breath. There is no conversational dyspnea or use of accessory muscles. White count 17.5, hemoglobin 11.2, hematocrit 33.7, within normal platelet count. Sodium 136, potassium 3.8, chlorides 95, CO2 36, BUN 30, creatinine 0.37. Chest x-ray shows bilateral patchy infiltrates, left greater than right, without significant change. Progress note dated 04/19/2023. The patient is again seen today in room 368. The patient has been weaned down to 6 L by nasal cannula. He is not receiving any IV fluids. He is in no distress. He sitting up in bed. He denies any shortness of breath, cough, wheezing, chest tightness, or phlegm production. No new labs today other than magnesium of 1.9. Chest x-ray from yesterday showed no major changes. Objective - Vital Signs Vital signs: Vital Signs Temp 98.4 F 04/19/23 11:12 Pulse 102 H 04/19/23 11:12 Resp 16 04/19/23 11:12 BP 102/67 04/19/23 11:12 Pulse Ox 92 L 04/19/23 11:12 FiO2 66 04/09/23 08:18 Intake & Output 04/18/23 04/19/23 04/19/23 18:59 06:59 18:59 Intake Total 723 Output Total 450 340 400 Balance 273 -340 -400 Intake: Oral 723 Output: Urine 450 340 400 Other: Voiding Method Urinal Urinal Urinal # Bowel Movements 1 - Exam No acute distress, oriented 3. The patient is on high flow nasal cannula 6 L/m. HEENT examination is grossly unremarkable. Neck supple. Full range of motion. No adenopathy thyromegaly or neck vein distention. Cardiovascular examination reveals regular rhythm rate. S1-S2 normal. No S3 or S4. Heart rate is 93 bpm. Heart sounds are distant. Lungs reveal scattered rhonchi, with a few scattered bibasilar crackles. No wheezes. Breath sounds are equal bilaterally. Saturations are 94 % on 6 L high flow nasal cannula. Abdomen soft bowel sounds are heard. No masses or tenderness. Extremities are intact. No cyanosis clubbing or edema. Skin is without rash or lesion. Neurologic examination is brief but nonfocal. - Labs CBC & Chem 7: 04/18/23 08:10 04/18/23 08:10 Assessment and Plan Assessment: Acute hypoxemic respiratory failure secondary to recurrent/persistent left lower lobe pneumonia. Chest x-ray on arrival demonstrates worsening opacities within the left mid and lower lung zones compared to his recent imaging. There was also suspected right lower lung atelectasis, and trace to small bilateral pleural effusions. Also, did test positive for COVID-19, possibly an incidental finding. The patient has also Enterobacter in his sputum and patchy infiltrates are seen in the left upper lobe and the left lower lobe. Rule out malignancy/primary bronchogenic carcinoma. Rule out bacterial infection/pneumonia as the patient was found to have Enterobacter in his sputum. In addition, he has advanced COPD, and a malignant left-sided pleural effusion. No major interval change in his overall condition and oxygenation. The patient remains on Decadron. Repeat chest x-ray from 04/05/2023 shows a stable peripheral left lung pulmonary infiltrate and small bilateral pleural effusions. The patient continues to require 9 L high flow nasal cannula to maintain a oxygenation saturation above 90%. Leukocytosis, secondary to above. Acute COPD exacerbation, secondary to above. Recent diagnosis of metastatic pulmonary adenocarcinoma based on pleural fluid cytology from a left-sided thoracentesis 03/11/23. History of right apical lung nodule measuring 10 x 7 mm June,. Benign essential hypertension. Hyperlipidemia. GERD. Chronic ongoing tobacco dependence. Plan: Plan dated 03/25/2023. The patient's labs, x-rays, and medications are all reviewed. The patient goes between BiPAP, in the AIRVO, for respiratory support. He is currently a full code. The patient's antibiotics and other medications will be continued. Oncology will be consulted. The patient will continue with DVT and GI prophylaxis. The patient's overall prognosis remains very guarded given all of his medical issues. We will continue to follow make recommendations along the way. The patient remains on antibiotics. Plan dated 03/26/2023. The patient is seen today in room 368. The patient remains on AIRVO at the current time, at 60 L/m, with an FiO2 of 90%. The patient remains a full code. A chest x-ray will be ordered for March 27. Labs, x-rays, and medications are reviewed. The patient remains on albuterol, Symbicort, and Decadron, and the patient's also on vitamin C, vitamin D3, and zinc. We will continue to follow make recommendations along the way. Prognosis is guarded. Plan dated 03/27/2023. The patient is seen again in room 368. Clinically, he appears relatively stable, even though he is on AIRVO and 60 L/m, with an FiO2 of 90%. The patient remains a full code. Labs, x-rays, medications are reviewed. The patient continues on appropriate medications including albuterol inhaler, Symbicort inhaler, Decadron, vitamin C, vitamin D3, and zinc. Additional recommendations and suggestions are forthcoming. Prognosis is guarded. The chest x-ray, according to the radiologist, may be slightly improved. Plan dated 03/28/2023. The patient is seen today in room 368. He continues on AIRVO, at 60 L/m, with an FiO2 of 90%. His saturations ranged from 90% as a low, up to 95% has a high. Labs, x-rays, and medications are reviewed. The patient continues on appropriate medications. The chest x-ray dated March 27, apparently is read/ interpreted by the radiologist showing improvement. I thought there was no significant change. Patient continues on appropriate medications including bronchodilators, steroids, and vitamins. Prognosis is certainly guarded. Plan dated 03/29/2023. The patient appears to be doing reasonably well. When asked, the patient feels like he is getting better. Labs, x-rays, and medications are reviewed. The patient's currently on albuterol inhaler, vitamins, Symbicort, and Decadron. We will continue to follow make recommendations along the way. Prognosis is certainly guarded, given his need for higher concentrations of oxygen. Plan dated 03/30/2023. The patient's labs, x-rays, and medications are reviewed. He'll follow-up x- rays ordered for tomorrow, March 31. The patient continues on saline at 75 mL an hour. Currently, he is on AIRVO, at 60 L/m for a flow rate, and FiO2 of 80%. On those settings, her saturations are 98%, which is an improvement. Additional recommendations and suggestions are forthcoming. We will continue to follow and make recommendations along the way. Plan dated 04/14/2023. The patient is seen today in room 368. He continues on high flow nasal cannula. He is currently a DO NOT RESUSCITATE patient. I saw him last back on March 30, and he looks weaker, and more frail appearing. Labs, x-rays, and medications are reviewed. The patient's medications are reviewed and are appropriate. Prognosis is certainly very guarded. Plan dated 04/15/2023. The patient has been weaned down to a liter high flow nasal cannula. The patient is seen today in room 368. He feels better, and feels like his breathing is improved. The patient is a DO NOT RESUSCITATE patient. Labs, x- rays, and medications are reviewed. The patient has been here in the hospital now for 23 days. We will continue to follow make recommendations along the way. Prognosis is certainly guarded. Plan dated 04/16/2023. Currently, the patient appears to be doing better each day. He's been weaned down to 7 L high flow nasal cannula. His saturations are in the low 90s. Labs, x-rays, and medications are reviewed. The patient is a DO NOT RESUSCITATE patient. The patient has now been in the hospital for 24 days. The patient's overall prognosis remains guarded. We will continue to follow the patient, and make recommendations along the way. Plan dated 04/17/2023. The patient continues on high flow nasal cannula. From time to time, his saturations drop, with the nurses her respiratory therapist either increase or decrease his flow rates. The patient clinically looks stable. A chest x-ray is ordered for tomorrow. The patient is a DO NOT RESUSCITATE patient. No additional recommendations and suggestions are forthcoming. Labs, x-rays, and medications are reviewed. The patient's getting close to discharge. Plan dated 04/18/2023. The patient continues on high flow nasal cannula at 8 L. Currently looks about the same. His chest x-ray really hasn't changed. From my perspective, the patient could be considered for possible discharge. The only thing holding up discharge, is his need for oxygen at 8 L. Hopefully when we get him down to 5 L, he can be sent home or to rehab. Clinically he appears somewhat weak. Labs, x-rays, medications are reviewed prognosis is guarded. Plan dated 04/19/2023. The patient has been weaned down to 6 L by nasal cannula. Clinically he looks stable. He denies any shortness of breath, cough, wheezing, chest tightness, or phlegm production. In my opinion, the patient could be considered for possible discharge. Clinically he looks as good as he's looked in the last 7 days or so. Labs, x-rays, and medications are reviewed. Prognosis is certainly guarded. We will continue to follow the patient, should he not be discharged. Time with Patient: Less than 30
[2023-04-19] MEDS: DEXTROSE 5%-0.9% NACL 1,000 ML IV SCH (16:03)
[2023-04-19] MEDS: ATORVASTATIN 20 MG TAB PO SCH (21:27)
[2023-04-20] MEDS: droNABinol 2.5 MG CAP PO SCH (06:15)
[2023-04-20] MEDS: MIDODRINE 5 MG TAB PO SCH ×2 (06:15→16:39)
[2023-04-20] MEDS: PANTOPRAZOLE 40 MG TABLET PO SCH (06:15)
[2023-04-20] MEDS: SYMBICORT 160-4.5 MCG INHALER INHALATION SCH ×2 (09:13→20:35)
[2023-04-20] MEDS: ALBUTEROL HFA INHALER INHALATION SCH ×4 (09:13→20:35)
[2023-04-20] MEDS: ASPIRIN 81 MG PO SCH (10:20)
[2023-04-20] MEDS: HEPARIN SODIUM,PORCINE 5,000 UNIT/ML 1 ML VIAL SQ SCH ×3 (10:20→23:29)
[2023-04-20] MEDS: FUROSEMIDE 40 MG TAB PO SCH (10:20)
[2023-04-20] MEDS: DEXAMETHASONE SOD PHOSPHATE 10 MG/ML 1 ML VIAL IVP SCH (10:20)
[2023-04-20] MEDS: ESCITALOPRAM 10 MG TAB PO SCH (10:21)
[2023-04-20] MEDS: CHOLECALCIFEROL 25 MCG (1000 IU) TABLET PO SCH (10:21)
[2023-04-20] MEDS: FAMOTIDINE 20 MG TAB PO SCH (10:21)
[2023-04-20] MEDS: ZINC SULFATE 220 MG CAP PO SCH (10:21)
[2023-04-20] MEDS: guaiFENesin 600 MG TABLET.ER PO SCH ×2 (10:21→20:08)
[2023-04-20] MEDS: ASCORBIC ACID 500 MG TAB PO SCH (10:21)
[2023-04-20] MEDS: DOCUSATE 100 MG CAP PO SCH ×2 (10:21→20:08)
[2023-04-20] MEDS: POTASSIUM CHLORIDE ER 10 MEQ TAB.ER.PRT PO SCH (10:21)
[2023-04-20] MEDS: SODIUM CHLORIDE 0.9% 1,000 ML IV SCH (11:29)
--- NOTE | 2023-04-20 12:39 | P.PN ---
Subjective Progress Note Date: 04/19/23 04/19/2023: Patient is reevaluated today for his ongoing pneumonia, acute restaurant failure, lung adenocarcinoma. He is currently on 70 L of oxygen. He is quite debilitated. His remained afebrile. Blood pressure remains stable. Oxygen status is somewhat low. No labs are pending for today. Pulmonology notes reviewed. Patient denies any significant complaints other than shortness of breath with exertion Objective - Vital Signs Vital signs: Vital Signs Temp 97.8 F 04/20/23 12:00 Pulse 109 H 04/20/23 12:00 Resp 16 04/20/23 12:00 BP 101/66 04/20/23 12:00 Pulse Ox 93 L 04/20/23 12:00 FiO2 66 04/09/23 08:18 Intake & Output 04/19/23 04/20/23 04/20/23 18:59 06:59 18:59 Output Total 400 360 Balance -400 -360 Output: Urine 400 360 Other: Voiding Method Urinal Urinal Urinal # Voids 1 # Bowel Movements 1 - Exam General: Patient awake, alert and oriented times 3. wearing nasal cannula current settings are 8 L/m. Neck: supple,No JVD. Cardiac: Regular S1 and S2. No S3. No S4. No clicks, rubs. No murmur. Lungs: .Diminished bilateral breath sounds, scattered minimal rhonchi noted. Abdomen: Soft, nontender, no guarding. Bowel sounds present and normoactive in all 4 quadrants. Extremes trace edema no cyanosis no claudication normal pulses, many boots are not in place Skin: No rash, warm and dry. Psych: He is awake alert and oriented 3, Neurologic: No lateralizing deficits. CN II - XII grossly intact. - Labs CBC & Chem 7: 04/18/23 08:10 04/18/23 08:10 Assessment and Plan (1) COVID-19 Current Visit: Yes Status: Acute Priority: High Code(s): U07.1 - COVID-19 SNOMED Code(s): 997583925 (2) Acute and chronic respiratory failure ([id number]) Current Visit: No Status: Acute Code(s): J96.20 - ACUTE AND CHR RESP FAILURE, UNSP W HYPOXIA OR HYPERCAPNIA SNOMED Code(s): 40404315 (3) Acute respiratory failure with hypoxia Current Visit: Yes Status: Acute Code(s): J96.01 - ACUTE RESPIRATORY FAILURE WITH HYPOXIA SNOMED Code(s): 06645272 (4) Acute exacerbation of chronic obstructive pulmonary disease Current Visit: No Status: Acute Priority: High Code(s): J44.1 - CHRONIC OBSTRUCTIVE PULMONARY DISEASE W (ACUTE) EXACERBATION SNOMED Code(s): 125745233 (5) Adenocarcinoma of lung Current Visit: Yes Status: Acute Priority: High Code(s): C34.90 - MALIGNANT NEOPLASM OF UNSP PART OF UNSP BRONCHUS OR LUNG SNOMED Code(s): 246069097 (6) Essential (primary) hypertension Current Visit: No Status: Acute Code(s): I10 - ESSENTIAL (PRIMARY) HYPERTENSION SNOMED Code(s): 71969021 (7) Tobacco dependence Current Visit: No Status: Acute Code(s): F17.200 - NICOTINE DEPENDENCE, UNSPECIFIED, UNCOMPLICATED SNOMED Code(s): 68076586 (8) Depression with anxiety Current Visit: Yes Status: Acute Code(s): F41.8 - OTHER SPECIFIED ANXIETY DISORDERS SNOMED Code(s): 557818405 Plan: He continues improving slowly. Pulmonology's notes were reviewed. He'll continue on his current treatments. We will encourage physical therapy. Repeat labs in a.m. Staff will continue to wean his oxygen as tolerated. He'll be reevaluated next 24 hours.
--- NOTE | 2023-04-20 12:42 | P.PN ---
Subjective Progress Note Date: 04/20/23 04/19/2023: Patient is reevaluated today for his ongoing pneumonia, acute respiratory failure, lung adenocarcinoma. He is currently on 70 L of oxygen. He is quite debilitated. His remained afebrile. Blood pressure remains stable. Oxygen status is somewhat low. No labs are pending for today. Pulmonology notes reviewed. Patient denies any significant complaints other than shortness of breath with exertion 04/20/2023: Staff report that after trying to wean his oxygen again last night he became quite dyspneic and short of breath. He is much more stable now. Currently on oxygen at 6 L/m, no labs pending for today. He denies any complaints this time other than the ongoing shortness of breath with exertion. I discussed ECF once his oxygen status is at 5 L/m period Objective - Vital Signs Vital signs: Vital Signs Temp 97.8 F 04/20/23 12:00 Pulse 109 H 04/20/23 12:00 Resp 16 04/20/23 12:00 BP 101/66 04/20/23 12:00 Pulse Ox 93 L 04/20/23 12:00 FiO2 66 04/09/23 08:18 Intake & Output 04/19/23 04/20/23 04/20/23 18:59 06:59 18:59 Output Total 400 360 Balance -400 -360 Output: Urine 400 360 Other: Voiding Method Urinal Urinal Urinal # Voids 1 # Bowel Movements 1 - Exam General: Patient awake, alert and oriented times 3. wearing nasal cannula current settings are 7 L/m. Neck: supple,No JVD. Cardiac: Regular S1 and S2. No S3. No S4. No clicks, rubs. Trace/6 murmur right sternal border. Lungs: Loud or rhonchi noted today than the previous exam. No wheezes or rales this time. Abdomen: Soft, nontender, no guarding. Bowel sounds present and normoactive in all 4 quadrants. Extremes trace edema no cyanosis no claudication normal pulses, many boots are not in place Skin: No rash, warm and dry. Psych: He is awake alert and oriented 3, Neurologic: No lateralizing deficits. CN II - XII grossly intact. - Labs CBC & Chem 7: 04/18/23 08:10 04/18/23 08:10 Assessment and Plan (1) COVID-19 Current Visit: Yes Status: Acute Priority: High Code(s): U07.1 - COVID-19 SNOMED Code(s): 870467169 (2) Acute and chronic respiratory failure ([id number]) Current Visit: No Status: Acute Code(s): J96.20 - ACUTE AND CHR RESP FAILURE, UNSP W HYPOXIA OR HYPERCAPNIA SNOMED Code(s): 93427220 (3) Acute respiratory failure with hypoxia Current Visit: Yes Status: Acute Code(s): J96.01 - ACUTE RESPIRATORY FAILURE WITH HYPOXIA SNOMED Code(s): 62207645 (4) Acute exacerbation of chronic obstructive pulmonary disease Current Visit: No Status: Acute Priority: High Code(s): J44.1 - CHRONIC OBSTRUCTIVE PULMONARY DISEASE W (ACUTE) EXACERBATION SNOMED Code(s): 446761841 (5) Adenocarcinoma of lung Current Visit: Yes Status: Acute Priority: High Code(s): C34.90 - MALIGNANT NEOPLASM OF UNSP PART OF UNSP BRONCHUS OR LUNG SNOMED Code(s): 252438548 (6) Essential (primary) hypertension Current Visit: No Status: Acute Code(s): I10 - ESSENTIAL (PRIMARY) HYPERTENSION SNOMED Code(s): 42686970 (7) Tobacco dependence Current Visit: No Status: Acute Code(s): F17.200 - NICOTINE DEPENDENCE, UNSPECIFIED, UNCOMPLICATED SNOMED Code(s): 07865602 (8) Depression with anxiety Current Visit: Yes Status: Acute Code(s): F41.8 - OTHER SPECIFIED ANXIETY DISORDERS SNOMED Code(s): 739360337 (9) Debility Current Visit: Yes Status: Acute Code(s): R53.81 - OTHER MALAISE SNOMED Code(s): 30835633 Plan: He continues improving slowly. Pulmonology's notes were reviewed. He'll continue on his current treatments. We will encourage physical therapy. Repeat labs in a.m. Staff will continue to wean his oxygen as tolerated. Goal of oxygen at 5 L/m her last, and transferred to [facility] hopefully the next 48 hours He'll be reevaluated next 24 hours.
--- NOTE | 2023-04-20 13:37 | P.PN ---
Subjective Progress Note Date: 04/20/23 I am seeing this patient in new consultation today 03/24/2023 for suspected left lower lobe pneumonia. Patient is a 73-year-old white male with past medical history significant for recent admission with left lower lobe pneumonia, discharged on March 17. During this admission, the patient was also found to have metastatic adenocarcinoma of the lung based on pleural fluid cytology from a left sided thoracentesis. He also has history of COPD, hypertension, hyperlipidemia, GERD, and ongoing chronic tobacco dependence. Patient is known to have a 10 mm x 7mm right upper lung nodule, originally seen back in June,. His PCP is Dr. Nichols. Chest CT from his most recent admission, March 07, demonstrated a right upper lung bronchus large airway occlusion concerning for obstructive mass. There was also a loculated left pleural effusion with left lung consolidation. The patient was treated with IV antibiotics and discharged home on Augmentin. He was established with an oncologist, and is reportedly going to undergo a PET scan outpatient. Patient returned to the emergency room last night, reporting that he's had ongoing progressively worsening shortness of breath since discharge. He admits an associated nonproductive cough. Denies any fever, chills, myalgias, hemoptysis. Denies any chest pain, palpitations, lower extremity edema, syncope. A chest x-ray done on arrival, showed worsening airspace opacities within the left mid and lower lung zones compared to prior imaging. There was also suspected right lower lung atelectasis, and trace to small bilateral pleural effusions. Patient did test positive for COVID-19, possibly an incidental finding. Patient is currently sitting up in bed, on BiPAP with settings 12/6 and FiO2 of 60%. Appears fairly comfortable. Respiratory rate is high 20s to low 30s and is achieving tidal volumes around 400. CBC on arrival shows leukocytosis with WBC count of 16.9, hemoglobin 14.7, hematocrit 45.4, platelets 150. BMP shows sodium 133, potassium 4.1, chloride 92, serum bicarbonate 39, BUN 17, creatinine 0.43, glucose 99. Currently receiving normal saline at 100 ML's per hour. He was started on empiric Zosyn and azithromycin. Currently afebrile. Also receiving Ventolin HFA, Symbicort inhaler, and IV Decadron. Patient is being monitored closely on the cardiac stepdown unit. Progress note dated 03/25/2023. 73-year-old male admitted on March 24, with a diagnosis of possible left lower lobe pneumonia, and hypoxemic respiratory failure. Currently, the patient is on BiPAP, with settings of 12/6, and 70%. He has no IV fluids running at this time. He did test positive for coronavirus. He does have a history of lung cancer, adenocarcinoma. The only labs today include glucose of 110. Chest x-ray from March 24, shows a small to moderate-sized left pleural effusion, with increased small right pleural effusion. There is also some right lower lung consolidation. Progress note dated 03/26/2023. 73-year-old male admitted on March 24, with a diagnosis of possible left lower lobe pneumonia and hypoxemic respiratory failure. The patient is currently on AIRVO, with settings of 60 L/m and an FiO2 of 90%. He's not receiving any IV fluids. A chest x-ray is ordered for March 27. The only lab today with a glucose of 111. Clinically, the patient's doing about the same. Blood cultures are currently negative. Progress note dated 03/27/2023. The patient is seen today in room 368. He continues on AIRVO, with settings of 60 L/m, with an FiO2 of 90%. The chest x-ray done today, shows worsening infiltrates. Clinically, the patient appears reasonably stable. White count 18.6, hemoglobin 10.8, hematocrit 46.2, and platelet count was normal. Sodium 139, potassium 4.6, chlorides 96, CO2 39, BUN 18, and creatinine 0.48. Blood cultures are negative. Chest x-ray shows bilateral pleural/parenchymal opac ities, left greater than right. Radiologist feels there may be some improvement. Progress note dated 03/28/2023. This is a 74-year-old male seen in room 368. The patient continues on AIRVO, at 60 L/m, and an FiO2 of 90%. The patient does feel better. He's not receiving any IV fluids. Labs today include only a glucose of 89. As mentioned yesterday, the chest x-ray, as interpreted by the radiologist, suggests some improvement. Progress note dated 03/29/2023. The patient is seen today in room 368. He continues on AIRVO, at 60 L/m, with an FiO2 of 90%. He is getting D5 with normal saline, at 50 mL an hour. She does feel like he is getting better. He looks relatively stable, and his respiratory status, despite being on AIRVO, appears stable. White count is 15.2, with a normal hemoglobin, hematocrit, and platelet count. Sodium 140, potassium 4.4, chlorides 99, CO2 39, BUN 25, and creatinine 0.43. Progress note dated 03/30/2023. The patient is seen today in room 368. He is on AIRVO, with settings of 60 L/m, for flow rate, and an FiO2, that has been dropped down to 80%. The patient continues on saline at 75 mL an hour. Chest x-ray ordered for tomorrow, March 31. No new labs today, other than a glucose of 99. 03/31 2023, the patient remains on high flow oxygen. He remains on 60 L an FiO2 has been done to 70%.the patient remains weak, short of breath, oxygenation. 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 At the same time, the patient was diagnosed having an acute Covid 19 infection.repeat chest x-ray from today shows a stable patchy infiltrates in the left along with small bilateral pleural effusion more so on the left. Meanwhile, the patient was diagnosed having Covid 19 infection on 04/19/2023 and the patient is currently on Decadron. The patient is also was found to have Enterobacter in his sputum and a bacterial pneumonia is suspected. His currently not receiving any antibiotic coverage. He is on Decadron 6 mg IV every 24 hours. He is on Ventolin HFA 4 times a day and Symbicort as maintenance. Rest of the home medications have been all resume. Labs showed a basic on of 12.5, hemoglobin 16.9, BUN is 23 with a creatinine of 0.4. His current pulse ox is 94%. Is getting progressively weak and more debilitated. 04/01 2023, the patient remains on high flow oxygen. This morning, the patient remains on 60 L of 70%. He was provided incentive spirometer. He denies having any worsening shortness of breath. He remains on Decadron 6 mg IV every 24 hours. He did have also patchy infiltrates on the left as discussed earlier and the patient was found to have Enterobacter in his sputum. Currently is afebrile. Hemodynamically stable. Oral intake is quite limited increase feeling weak and debilitated. Blood work was from yesterday and no recent blood work from today. His renal function is stable. Hemoglobin stable at 13.9. He is afebrile. Pulse ox is in order of 92%. No other significant events over the past 24 hours. Improvement is slow and limited at this point in time. 13 2022, the patient remains on 60 L an FiO2 of 70% on high flow oxygen. The patient is essentially the same. The patient has a congested cough. Is unable to produce significant sputum. I'm very much interested in obtaining another sputum samples for cultures. Meanwhile, based on his earlier Enterobacter growth in his sputum, the patient is currently on IV cefepime. The patient remains on Decadron 6 mg IV every 24 hours. Repeat chest x-ray from today shows no interval change. There is persistent stable. There is persistent left mid and upper lobe pulmonary infiltrate. There is also small bilateral pleural effusion. The patient is weak. The patient is lethargic. He is arousable and is communicating. Oral intake is quite diminished at this point. He is afebri le. He is hemodynamically stable. On today's evaluation of 04/03/2023, the patient states that he's feeling better. Oxygenation is still impaired and the patient is still requiring high flow oxygen. Currently is on 60 L an FiO2 of 70%. His pulse ox is ranging between 93-95%. He continues to have a congestive cough. IV cefepime was added. The patient remains on steroids. The chest x-ray from yesterday showed a stable consolidation left lung along with a small left-sided pleural effusion. No new labs are available from today. His tolerating diet. He remains on Decadron 6 mg IV every 24 hours. No other significant events overnight. He was encouraged to use incentive spirometer. On today's evaluation of 04/04/2023, the patient remains on Airvo at 60 L an FiO2 of 70%. Is essentially the same setting over the past several days. No major changes in his oxygenation. Continues to produce copious amount of secretions and his cough is wet and congested and the patient is producing mucus. He does not have another complaints at this point. He is weak. Oral intake is quite diminished. Is on IV cefepime. He remains on Decadron. Unfortunately, he is not making much of progress. I discussed the case with his over the phone and explained to do situation. Current pulse ox is in order of 94-95% on the current high flow oxygen setting. 04/05/2023, the patient is on 60 L an FiO2 of 70%. Pulse ox is in order of 95%. Chest x-ray findings remain stable and I reviewed the chest x-ray from today and there is no significant interval change. There is a patchy pulmonary infiltrate persistent in the left lung. No significant interval change. The patient remains on IV cefepime. The patient is afebrile. On blood work, the patient's serum bicarbs of 45 and the patient will be given 2 doses of Diamox today. Sodiums of 132. The white cell count 13.4, hemoglobin is at 14.1 04/06 2023, no major improvement and the patient remains on high flow oxygen at 60 L an FiO2 of 70%. Continues to be on Decadron. Continues to be on cefepime. Most recent chest x-ray from 04/05/2023 showed stable findings. He is a DNR/DNI CODE STATUS. The patient is seen today 04/07/2023 in follow-up on the selective care unit. He is currently sitting up in bed. He is quite weak and debilitated. He continues to require AirVo high flow oxygen at 60 L and 70% FiO2 with O2 satura tion in the 90s. Sputum culture was positive for Enterobacter aerogenes. The cultures revealed no growth. Blood sugar 135. He remains on Symbicort, albuterol, Decadron and vitamin supplements. Heparin for DVT prophylaxis. Antibiotics in the form of cefepime. Family is considering comfort care /hospice. The patient is seen today 04/08/2023 in follow-up on the selective care unit. He is awake. Quite weak and debilitated. He remains on AirVo high flow oxygen at 60 L and 70% FiO2. Sputum culture was positive for Enterobacter aerogenes. Blood cultures revealed no growth. Glucose 113. He is continued on Symbicort, albuterol, vitamin supplements. She remains on Decadron. Antibiotics in the form of cefepime. Remains on diuretics. Currently in a negative balance. The patient is seen today 04/09/2023 in follow-up on the selective care unit. He remains awake and alert. Resting in bed. Still requiring AirVo high flow nasal cannula at 60 L and 65% FiO2. Sputum culture positive for Enterobacter aerogenes. Blood cultures reveal no growth. White count 18.4. Hemoglobin 12.8. Platelets 143. Sodium 136. Potassium 4.8. Bicarb. 9. BUN 49. Creatinine 0.40. AST 46. ALT 108. Albumin 2.9. He is continued on Symbicort, albuterol, vitamin supplements. She remains on Decadron. Antibiotics in the form of cefepime. Remains on diuretics. The patient is seen today 04/13/2023 in follow-up on the selective care unit. He is sitting up in a chair at the bedside. Awake and alert in no acute distress. Is currently on 9 L high flow nasal cannula with O2 saturations in the 90s. He's been afebrile. Hemodynamically stable. Sputum culture was positive for Enterobacter aerogenes. Blood cultures reveal no growth. Sodium 136. Potassium 4.5. Bicarb 38. BUN 49. Creatinine 0.52. Glucose 129. He is continued on Symbicort, albuterol, Decadron. Heparin for DVT prophylaxis. Remains on vitamin supplements. Patient is seen today 04/20/2023 in follow-up on the selective care unit. He is currently awake and alert in no acute distress. Sitting up in a chair at the bedside. He is currently down to 6 L high flow nasal cannula. He remains quite weak and debilitated. He is afebrile. Hemodynamically stable. Recent chest x- ray reveals patchy peripheral and basilar opacities left greater than right without significant change. Consistent with COVID-19 pneumonia. Sputum culture was positive for Enterobacter aerogenes. Completed cefepime. He remains on Symbicort, albuterol, Decadron, heparin. Remains on vitamin supplements. Objective - Vital Signs Vital signs: Vital Signs Temp 97.8 F 04/20/23 12:00 Pulse 109 H 04/20/23 12:00 Resp 16 04/20/23 12:00 BP 101/66 04/20/23 12:00 Pulse Ox 93 L 04/20/23 12:00 FiO2 66 04/09/23 08:18 Intake & Output 04/19/23 04/20/23 04/20/23 18:59 06:59 18:59 Output Total 400 360 Balance -400 -360 Output: Urine 400 360 Other: Voiding Method Urinal Urinal Urinal # Voids 1 # Bowel Movements 1 - Exam GENERAL EXAM: Alert, pleasant 73-year-old male, remains on 6 L high flow nasal cannula, fairly comfortable. HEAD: Normocephalic. EYES: Normal reaction of pupils, equal size. NOSE: Clear with pink turbinates. THROAT: No erythema or exudates. NECK: No masses, no JVD. CHEST: No chest wall deformity. LUNGS: Equal air entry with crackles in the bilateral bases. CVS: S1 and S2 normal with no audible murmur, regular rhythm. ABDOMEN: No hepatosplenomegaly, normal bowel sounds, no guarding or rigidity. SPINE: No scoliosis or deformity SKIN: No rashes CENTRAL NERVOUS SYSTEM: No focal deficits, tone is normal in all 4 extremities. EXTREMITIES: There is no peripheral edema. No clubbing, no cyanosis. Peripheral pulses are intact. - Labs CBC & Chem 7: 04/18/23 08:10 04/18/23 08:10 Assessment and Plan Assessment: Acute hypoxemic respiratory failure secondary to recurrent/persistent left lower lobe pneumonia. Chest x-ray on arrival demonstrates worsening opacities within the left mid and lower lung zones compared to his recent imaging. There was also suspected right lower lung atelectasis, and trace to small bilateral pleural effusions. Also, did test positive for COVID-19, possibly an incidental finding. The patient has also Enterobacter in his sputum and patchy infiltrates are seen in the left upper lobe and the left lower lobe. Rule out malignancy/ primary bronchogenic carcinoma. Rule out bacterial infection/pneumonia as the patient was found to have Enterobacter in his sputum. In addition, he has advanced COPD, and a malignant left-sided pleural effusion. No major interval change in his overall condition and oxygenation. The patient remains on Decadron. Repeat chest x-ray from 04/18/2023 shows a stable peripheral left lung pulmonary infiltrate and small bilateral pleural effusions. The patient continues to require 6 L high flow nasal cannula to maintain a oxygenation saturation above 90% Leukocytosis, secondary to above Acute COPD exacerbation, secondary to above Recent diagnosis of metastatic pulmonary adenocarcinoma based on pleural fluid cytology from a left-sided thoracentesis 03/11/23 History of right apical lung nodule measuring 10 x 7 mm June, Benign essential hypertension Hyperlipidemia GERD Chronic ongoing tobacco dependence Plan: The patient was seen and evaluated Labs and medications reviewed Continue to titrate down the FiO2 as tolerated Continue current treatment plan Plan is for transfer to [facility] possibly tomorrow We'll continue to follow I have personally seen and examined the patient, performed the documentation and the assessment and plan as written. Number of minutes spent on the visit: 10.
[2023-04-20] MEDS: DEXTROSE 5%-0.9% NACL 1,000 ML IV SCH (15:22)
[2023-04-20] MEDS ORDERED: CALCIUM CARBONATE 500 MG CHEWABLE PO PRN (17:12)
[2023-04-20] MEDS: ATORVASTATIN 20 MG TAB PO SCH (20:08)
[2023-04-21] MEDS: PANTOPRAZOLE 40 MG TABLET PO SCH (05:47)
[2023-04-21] MEDS: MIDODRINE 5 MG TAB PO SCH ×2 (05:47→17:04)
[2023-04-21] MEDS: droNABinol 2.5 MG CAP PO SCH (05:47)
[2023-04-21 07:54] LABS: African American GFR (CKD) >90 (>60 ml/min/1.73 sqM); Anion Gap 6 mmol/L; Blood Urea Nitrogen 26 mg/dL (9-20); Calcium 8.7 mg/dL (8.4-10.2); Carbon Dioxide 33 mmol/L (22-30); Chloride 96 mmol/L (98-107); Glucose 87 mg/dL (74-99); Non-African American GFR(CKD) >90 (>60 ml/min/1.73 sqM); Potassium 4.4 mmol/L (3.5-5.1); Sodium 135 mmol/L (137-145)
[2023-04-21 08:03] LABS: Basophils % (A) 0 %; Eosinophils # (A) 0.3 k/uL (0-0.7); Eosinophils % (A) 2 %; HCT 33.5 % (39.0-53.0); Lymphocytes # (A) 0.6 k/uL (1.0-4.8); Lymphocytes % (A) 3 %; MCH 29.5 pg (25.0-35.0); MCV 89.6 fL (80.0-100.0); Mean Platelet Volume 8.8; Monocytes # (A) 0.9 k/uL (0-1.0); Monocytes % (A) 4 %; Neutrophils # (A) 18.3 k/uL (1.3-7.7); Neutrophils % (A) 90 %; Platelet Count 191 k/uL (150-450); RBC 3.74 m/uL (4.30-5.90); WBC 20.3 k/uL (3.8-10.6)
[2023-04-21] MEDS: DEXAMETHASONE SOD PHOSPHATE 10 MG/ML 1 ML VIAL IVP SCH (08:40)
[2023-04-21] MEDS: HEPARIN SODIUM,PORCINE 5,000 UNIT/ML 1 ML VIAL SQ SCH ×3 (08:40→23:18)
[2023-04-21] MEDS: POTASSIUM CHLORIDE ER 10 MEQ TAB.ER.PRT PO SCH (08:41)
[2023-04-21] MEDS: DOCUSATE 100 MG CAP PO SCH ×2 (08:41→20:37)
[2023-04-21] MEDS: guaiFENesin 600 MG TABLET.ER PO SCH ×2 (08:41→20:37)
[2023-04-21] MEDS: ASPIRIN 81 MG PO SCH (08:41)
[2023-04-21] MEDS: FAMOTIDINE 20 MG TAB PO SCH (08:41)
[2023-04-21] MEDS: ZINC SULFATE 220 MG CAP PO SCH (08:41)
[2023-04-21] MEDS: ASCORBIC ACID 500 MG TAB PO SCH (08:41)
[2023-04-21] MEDS: CHOLECALCIFEROL 25 MCG (1000 IU) TABLET PO SCH (08:41)
[2023-04-21] MEDS: SODIUM CHLORIDE 0.9% 1,000 ML IV SCH (08:41)
[2023-04-21] MEDS: ESCITALOPRAM 10 MG TAB PO SCH (08:41)
[2023-04-21] MEDS: FUROSEMIDE 40 MG TAB PO SCH (08:41)
[2023-04-21] MEDS: SYMBICORT 160-4.5 MCG INHALER INHALATION SCH ×2 (08:52→20:52)
[2023-04-21] MEDS: ALBUTEROL HFA INHALER INHALATION SCH ×4 (08:52→20:52)
--- NOTE | 2023-04-21 10:59 | P.PN ---
Subjective Progress Note Date: 04/21/23 I am seeing this patient in new consultation today 03/24/2023 for suspected left lower lobe pneumonia. Patient is a 73-year-old white male with past medical history significant for recent admission with left lower lobe pneumonia, discharged on March 17. During this admission, the patient was also found to have metastatic adenocarcinoma of the lung based on pleural fluid cytology from a left sided thoracentesis. He also has history of COPD, hypertension, hyperlipidemia, GERD, and ongoing chronic tobacco dependence. Patient is known to have a 10 mm x 7mm right upper lung nodule, originally seen back in June,. His PCP is Dr. Nichols. Chest CT from his most recent admission, March 07, demonstrated a right upper lung bronchus large airway occlusion concerning for obstructive mass. There was also a loculated left pleural effusion with left lung consolidation. The patient was treated with IV antibiotics and discharged home on Augmentin. He was established with an oncologist, and is reportedly going to undergo a PET scan outpatient. Patient returned to the emergency room last night, reporting that he's had ongoing progressively worsening shortness of breath since discharge. He admits an associated nonproductive cough. Denies any fever, chills, myalgias, hemoptysis. Denies any chest pain, palpitations, lower extremity edema, syncope. A chest x-ray done on arrival, showed worsening airspace opacities within the left mid and lower lung zones compared to prior imaging. There was also suspected right lower lung atelectasis, and trace to small bilateral pleural effusions. Patient did test positive for COVID-19, possibly an incidental finding. Patient is currently sitting up in bed, on BiPAP with settings 12/6 and FiO2 of 60%. Appears fairly comfortable. Respiratory rat e is high 20s to low 30s and is achieving tidal volumes around 400. CBC on arrival shows leukocytosis with WBC count of 16.9, hemoglobin 14.7, hematocrit 45.4, platelets 150. BMP shows sodium 133, potassium 4.1, chloride 92, serum bicarbonate 39, BUN 17, creatinine 0.43, glucose 99. Currently receiving normal saline at 100 ML's per hour. He was started on empiric Zosyn and azithromycin. Currently afebrile. Also receiving Ventolin HFA, Symbicort inhaler, and IV Decadron. Patient is being monitored closely on the cardiac stepdown unit. Progress note dated 03/25/2023. 73-year-old male admitted on March 24, with a diagnosis of possible left lower lobe pneumonia, and hypoxemic respiratory failure. Currently, the patient is on BiPAP, with settings of 12/6, and 70%. He has no IV fluids running at this time. He did test positive for coronavirus. He does have a history of lung cancer, adenocarcinoma. The only labs today include glucose of 110. Chest x-ray from March 24, shows a small to moderate-sized left pleural effusion, with increased small right pleural effusion. There is also some right lower lung consolidation. Progress note dated 03/26/2023. 73-year-old male admitted on March 24, with a diagnosis of possible left lower lobe pneumonia and hypoxemic respiratory failure. The patient is currently on AIRVO, with settings of 60 L/m and an FiO2 of 90%. He's not receiving any IV fluids. A chest x-ray is ordered for March 27. The only lab today with a glucose of 111. Clinically, the patient's doing about the same. Blood cultures are currently negative. Progress note dated 03/27/2023. The patient is seen today in room 368. He continues on AIRVO, with settings of 60 L/m, with an FiO2 of 90%. The chest x-ray done today, shows worsening infiltrates. Clinically, the patient appears reasonably stable. White count 18.6, hemoglobin 10.8, hematocrit 46.2, and platelet count was normal. Sodium 139, potassium 4.6, chlorides 96, CO2 39, BUN 18, and creatinine 0.48. Blood cultures are negative. Chest x-ray shows bilateral pleural/parenchymal opa cities, left greater than right. Radiologist feels there may be some improvement. Progress note dated 03/28/2023. This is a 74-year-old male seen in room 368. The patient continues on AIRVO, at 60 L/m, and an FiO2 of 90%. The patient does feel better. He's not receiving any IV fluids. Labs today include only a glucose of 89. As mentioned yesterday, the chest x-ray, as interpreted by the radiologist, suggests some improvement. Progress note dated 03/29/2023. The patient is seen today in room 368. He continues on AIRVO, at 60 L/m, with an FiO2 of 90%. He is getting D5 with normal saline, at 50 mL an hour. She does feel like he is getting better. He looks relatively stable, and his respiratory status, despite being on AIRVO, appears stable. White count is 15.2, with a normal hemoglobin, hematocrit, and platelet count. Sodium 140, potassium 4.4, chlorides 99, CO2 39, BUN 25, and creatinine 0.43. Progress note dated 03/30/2023. The patient is seen today in room 368. He is on AIRVO, with settings of 60 L/m, for flow rate, and an FiO2, that has been dropped down to 80%. The patient continues on saline at 75 mL an hour. Chest x-ray ordered for tomorrow, March 31. No new labs today, other than a glucose of 99. 03/31 2023, the patient remains on high flow oxygen. He remains on 60 L an FiO2 has been done to 70%.the patient remains weak, short of breath, oxygenation. 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 At the same time, the patient was diagnosed having an acute Covid 19 infection.repeat chest x-ray from today shows a stable patchy infiltrates in the left along with small bilateral pleural effusion more so on the left. Meanwhile, the patient was diagnosed having Covid 19 infection on 04/19/2023 and the patient is currently on Decadron. The patient is also was found to have Enterobacter in his sputum and a bacterial pneumonia is suspected. His currently not receiving any antibiotic coverage. He is on Decadron 6 mg IV every 24 hours. He is on Ventolin HFA 4 times a day and Symbicort as maintenance. Rest of the home medications have been all resume. Labs showed a basic on of 12.5, hemoglobin 16.9, BUN is 23 with a creatinine of 0.4. His current pulse ox is 94%. Is getting progressively weak and more debilitated. 04/01 2023, the patient remains on high flow oxygen. This morning, the patient remains on 60 L of 70%. He was provided incentive spirometer. He denies having any worsening shortness of breath. He remains on Decadron 6 mg IV every 24 hours. He did have also patchy infiltrates on the left as discussed earlier and the patient was found to have Enterobacter in his sputum. Currently is afebrile. Hemodynamically stable. Oral intake is quite limited increase feeling weak and debilitated. Blood work was from yesterday and no recent blood work from today. His renal function is stable. Hemoglobin stable at 13.9. He is afebrile. Pulse ox is in order of 92%. No other significant events over the past 24 hours. Improvement is slow and limited at this point in time. 13 2022, the patient remains on 60 L an FiO2 of 70% on high flow oxygen. The patient is essentially the same. The patient has a congested cough. Is unable to produce significant sputum. I'm very much interested in obtaining another sputum samples for cultures. Meanwhile, based on his earlier Enterobacter growth in his sputum, the patient is currently on IV cefepime. The patient remains on Decadron 6 mg IV every 24 hours. Repeat chest x-ray from today shows no interval change. There is persistent stable. There is persistent left mid and upper lobe pulmonary infiltrate. There is also small bilateral pleural effusion. The patient is weak. The patient is lethargic. He is arousable and is communicating. Oral intake is quite diminished at this point. He is afebr ile. He is hemodynamically stable. On today's evaluation of 04/03/2023, the patient states that he's feeling better. Oxygenation is still impaired and the patient is still requiring high flow oxygen. Currently is on 60 L an FiO2 of 70%. His pulse ox is ranging between 93-95%. He continues to have a congestive cough. IV cefepime was added. The patient remains on steroids. The chest x-ray from yesterday showed a stable consolidation left lung along with a small left-sided pleural effusion. No new labs are available from today. His tolerating diet. He remains on Decadron 6 mg IV every 24 hours. No other significant events overnight. He was encouraged to use incentive spirometer. On today's evaluation of 04/04/2023, the patient remains on Airvo at 60 L an FiO2 of 70%. Is essentially the same setting over the past several days. No major changes in his oxygenation. Continues to produce copious amount of secretions and his cough is wet and congested and the patient is producing mucus. He does not have another complaints at this point. He is weak. Oral intake is quite diminished. Is on IV cefepime. He remains on Decadron. Unfortunately, he is not making much of progress. I discussed the case with his over the phone and explained to do situation. Current pulse ox is in order of 94-95% on the current high flow oxygen setting. 04/05/2023, the patient is on 60 L an FiO2 of 70%. Pulse ox is in order of 95%. Chest x-ray findings remain stable and I reviewed the chest x-ray from today and there is no significant interval change. There is a patchy pulmonary infiltrate persistent in the left lung. No significant interval change. The patient remains on IV cefepime. The patient is afebrile. On blood work, the patient's serum bicarbs of 45 and the patient will be given 2 doses of Diamox today. Sodiums of 132. The white cell count 13.4, hemoglobin is at 14.1 04/06 2023, no major improvement and the patient remains on high flow oxygen at 60 L an FiO2 of 70%. Continues to be on Decadron. Continues to be on cefepime. Most recent chest x-ray from 04/05/2023 showed stable findings. He is a DNR/DNI CODE STATUS. The patient is seen today 04/07/2023 in follow-up on the selective care unit. He is currently sitting up in bed. He is quite weak and debilitated. He continues to require AirVo high flow oxygen at 60 L and 70% FiO2 with O2 satur ation in the 90s. Sputum culture was positive for Enterobacter aerogenes. The cultures revealed no growth. Blood sugar 135. He remains on Symbicort, albuterol, Decadron and vitamin supplements. Heparin for DVT prophylaxis. Antibiotics in the form of cefepime. Family is considering [facility]/hospice. The patient is seen today 04/08/2023 in follow-up on the selective care unit. He is awake. Quite weak and debilitated. He remains on AirVo high flow oxygen at 60 L and 70% FiO2. Sputum culture was positive for Enterobacter aerogenes. Blood cultures revealed no growth. Glucose 113. He is continued on Symbicort, albuterol, vitamin supplements. She remains on Decadron. Antibiotics in the form of cefepime. Remains on diuretics. Currently in a negative balance. The patient is seen today 04/09/2023 in follow-up on the selective care unit. He remains awake and alert. Resting in bed. Still requiring AirVo high flow nasal cannula at 60 L and 65% FiO2. Sputum culture positive for Enterobacter aerogenes. Blood cultures reveal no growth. White count 18.4. Hemoglobin 12.8 . Platelets 143. Sodium 136. Potassium 4.8. Bicarb. 9. BUN 49. Creatinine 0.40. AST 46. ALT 108. Albumin 2.9. He is continued on Symbicort, albuterol, vitamin supplements. She remains on Decadron. Antibiotics in the form of cefepime. Remains on diuretics. The patient is seen today 04/13/2023 in follow-up on the selective care unit. He is sitting up in a chair at the bedside. Awake and alert in no acute distress. Is currently on 9 L high flow nasal cannula with O2 saturations in the 90s. He's been afebrile. Hemodynamically stable. Sputum culture was positive for Enterobacter aerogenes. Blood cultures reveal no growth. Sodium 136. Potassium 4.5. Bicarb 38. BUN 49. Creatinine 0.52. Glucose 129. He is continued on Symbicort, albuterol, Decadron. Heparin for DVT prophylaxis. Remains on vitamin supplements. Patient is seen today 04/20/2023 in follow-up on the selective care unit. He is currently awake and alert in no acute distress. Sitting up in a chair at the bedside. He is currently down to 6 L high flow nasal cannula. He remains quite weak and debilitated. He is afebrile. Hemodynamically stable. Recent chest x- ray reveals patchy peripheral and basilar opacities left greater than right without significant change. Consistent with COVID-19 pneumonia. Sputum culture was positive for Enterobacter aerogenes. Completed cefepime. He remains on Symbicort, albuterol, Decadron, heparin. Remains on vitamin supplements. 04/21/2023, the patient is being seen for a follow-up. Is quite lethargic and weak. He may need some further rehabilitation. Nevertheless, over the past 3-4 weeks, the patient progressive improvement in oxygenation and currently is down to 5 L of oxygen by nasal cannula. He continues to have some cough and congestion. Completed his antibiotic course. His earlier sputum sample was positive for Enterobacter. His echoes at 20 with a hemoglobin of 11 and a platelet count of 191. BUN is 26 with a creatinine of 0.4 and a sodium level is at 135. Is currently on no antibiotics is completed his course of cefepime. He has been on Symbicort and albuterol HFA [id number]. The patient should be able to go back on his nebulizers. The patient will be also released to [facility] manner on 10 mg of prednisone maintenance. Objective - Vital Signs Vital signs: Vital Signs Temp 97.6 F 04/21/23 08:30 Pulse 121 H 04/21/23 08:30 Resp 24 04/21/23 08:30 BP 92/60 04/21/23 08:30 Pulse Ox 90 L 04/21/23 08:30 FiO2 66 04/09/23 08:18 Intake & Output 04/20/23 04/21/23 04/21/23 18:59 06:59 18:59 Intake Total 118 80 Output Total 700 525 Balance -582 80 -525 Intake: Oral 118 80 Output: Urine 700 525 Other: Voiding Method Urinal Urinal Urinal # Bowel Movements 1 - Exam GENERAL EXAM: Alert, pleasant 73-year-old male, remains on 5 L high flow nasal cannula, fairly comfortable. HEAD: Normocephalic. EYES: Normal reaction of pupils, equal size. NOSE: Clear with pink turbinates. THROAT: No erythema or exudates. NECK: No masses, no JVD. CHEST: No chest wall deformity. LUNGS: Equal air entry with crackles in the bilateral bases. CVS: S1 and S2 normal with no audible murmur, regular rhythm. ABDOMEN: No hepatosplenomegaly, normal bowel sounds, no guarding or rigidity. SPINE: No scoliosis or deformity SKIN: No rashes CENTRAL NERVOUS SYSTEM: No focal deficits, tone is normal in all 4 extremities. EXTREMITIES: There is no peripheral edema. No clubbing, no cyanosis. Peripheral pulses are intact. - Labs CBC & Chem 7: 04/21/23 07:24 04/21/23 07:24 Labs: Abnormal Lab Results - Last 24 Hours (Table) 04/21/23 04/21/23 Range/Units 07:24 07:24 WBC 20.3 H (3.8-10.6) k/uL RBC 3.74 L (4.30-5.90) m/uL Hgb 11.0 L (13.0-17.5) gm/dL Hct 33.5 L (39.0-53.0) % RDW 16.0 H (11.5-15.5) % Neutrophils # 18.3 H (1.3-7.7) k/uL Lymphocytes # 0.6 L (1.0-4.8) k/uL Sodium 135 L (137-145) mmol/L Chloride 96 L (98-107) mmol/L Carbon Dioxide 33 H (22-30) mmol/L BUN 26 H (9-20) mg/dL Creatinine 0.40 L (0.66-1.25) mg/dL Assessment and Plan Plan: Acute hypoxemic respiratory failure secondary to recurrent/persistent left lower lobe pneumonia. Chest x-ray on arrival demonstrates worsening opacities within the left mid and lower lung zones compared to his recent imaging. There was also suspected right lower lung atelectasis, and trace to small bilateral pleural effusions. Also, did test positive for COVID-19, possibly an incidental finding. The patient has also Enterobacter in his sputum and patchy infiltrates are seen in the left upper lobe and the left lower lobe. Rule out malignancy/primary bronchogenic carcinoma. Rule out bacterial infection/ pneumonia as the patient was found to have Enterobacter in his sputum. In addition, he has advanced COPD, and a malignant left-sided pleural effusion. No major interval change in his overall condition and oxygenation. The patient remains on Decadron. Repeat chest x-ray from 04/18/2023 shows a stable peripheral left lung pulmonary infiltrate and small bilateral pleural effusions. The patient continues to require 5 L high flow nasal cannula to maintain a oxygenation saturation above 90% Leukocytosis, secondary to above Acute COPD exacerbation, secondary to above, improved Recent diagnosis of metastatic pulmonary adenocarcinoma based on pleural fluid cytology from a left-sided thoracentesis 03/11/23 History of right apical lung nodule measuring 10 x 7 mm June, Benign essential hypertension Hyperlipidemia GERD Chronic ongoing tobacco dependence Plan: The patient should be able to go to [facility] on oxygen at 5 L, Symbicort 2 puffs twice a day, albuterol nebulizer should be able to be started on this patient. I would suggest also maintaining him on a 10 mg of prednisone on a daily basis. Continue to titrate down the FiO2 as tolerated Continue current treatment plan Plan is for transfer to [facility] possibly today We'll continue to follow
[2023-04-21] MEDS: MAGNESIUM OXIDE 400 MG TAB PO SCH ×2 (11:04→20:37)
--- NOTE | 2023-04-21 11:26 | P.DS ---
Providers Date of admission: 03/23/23 19:15 Expected date of discharge: 04/21/23 Attending physician: Herson Ross Consults: 03/23/23 19:15 Consult Physician Routine Consulting Provider: Braxton Eason Consult Reason/Comments: hypoxic respiratory failure on bipap, pneumonia, copd Do you want consulting provider notified?: Yes 03/24/23 04:05 Consult Physician Routine Consulting Provider: Ranjit Landers Consult Reason/Comments: Recent diagnosis of metastatic pulmonary adenocarcinoma Do you want consulting provider notified?: Yes, Notify in am 04/10/23 20:41 Consult Physician Routine Consulting Provider: Wilmer Tucker Consult Reason/Comments: EKG changes. ST elevation Do you want consulting provider notified?: Yes Primary care physician: Antoine Nichols Hospital Course: Final diagnoses (1) Acute respiratory failure with hypoxia Current Visit: Yes Status: Acute Code(s): J96.01 - ACUTE RESPIRATORY FAILURE WITH HYPOXIA SNOMED Code(s): 80181758 (2) COPD (chronic obstructive pulmonary disease) Current Visit: Yes Status: Acute Code(s): J44.9 - CHRONIC OBSTRUCTIVE PULMONARY DISEASE, UNSPECIFIED SNOMED Code(s): 33132521 (3) COVID-19 Current Visit: Yes Status: Acute Code(s): U07.1 - COVID-19 SNOMED Code(s): 299547363 (4) Pneumonia, sputum cultures reporting Enterobacter aerogenes Current Visit: Yes Status: Acute Code(s): J18.9 - PNEUMONIA, UNSPECIFIED ORGANISM SNOMED Code(s): 009995176 (5) Acute and chronic respiratory failure ([id number]) Current Visit: No Status: Acute Code(s): J96.20 - ACUTE AND CHR RESP FAILURE, UNSP W HYPOXIA OR HYPERCAPNIA SNOMED Code(s): 74278374 (6) Adenocarcinoma of lung Current Visit: No Status: Acute Priority: High Code(s): C34.90 - MALIGNANT NEOPLASM OF UNSP PART OF UNSP BRONCHUS OR LUNG SNOMED Code(s): 721395811 (7) Atherosclerosis of abdominal aorta Current Visit: No Status: Acute Code(s): I70.0 - ATHEROSCLEROSIS OF AORTA SNOMED Code(s): 678770846 (8) No code, No CPR, No intubation Hospital course:Mister Rhodes is a 73-year-old male well-known to the practice, 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 Maintained on covid cocktail.Currently maintaining O2 sats in the 90s on airvo flow 60 and Fio2 90. BiPAP at bedside. Reports fati isaac, weakness. Afebrile. Pro-calcitonin 0.06. Preliminary blood cultures reporting no growth after 24 hours. Denies chest pain, palpitations. 03/26/2023 maintained on airvo, 60 L FIO2 90%, maintaining O2 sats in the high 80s to low 90s. Mild anxiety. Denies chest pain, palpitations. Afebrile. Preliminary blood cultures reporting no growth after 48 hours. 03/27/2023 Feels better this morning. Received Xanax last night, rested better. Continues on Airvo 60 L, FiO2 90% and maintaining O2 sats in the high 80s to low 90s. Chest x-ray reporting ongoing bilateral pleural personal opacity slough greater than right, possibly slight improvement right base. These Bicarb 39, BUN 18, creatinine 0.48. Hemoglobin 14.8, platelets 168. Preliminary blood cultures reporting no growth after 72 hours. Afebrile. 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 Blood sugars controlled. 03/28/2023 maintained on Airvo 60 L, FiO2 90%, O2 sats fluctuates from high 80s to high 90s. Diet intake poor, consumed 25% of breakfast. Denies nausea, vomiting. Denies abdominal pain. Continues on COvid Cocktail. Afebrile. Preliminary blood cultures reporting no growth after 72 hours. Feels discouraged. 04/07/23 afebrile, continues on cefepime, Decadron. Maintained on airvo 60 L/70% FiO2 maintaining O2 sats in the mid 90s. Diet intake including HS snacks, supplement intake poor, on Marinol. 04/08/2023 continues on airvo 60 L/70% FiO2 maintaining O2 sats in the low 90s. Maintained on antibiotics of cefepime and Covid cocktail. Afebrile. Fatigued. 04/09/2023 . Staff reports mild confusion during the night, resolved this morning. Continues on Marinol, diet intake ranging from 25-50%, usually 0% at breakfast. Borderline hypotension, antihypertensives held. Continues on Airvo 60 L/66% FiO2. Continues on antibiotics, cefepime, diuretics and Covid cocktail, Decadron. Afebrile, WBC 18.4. Hemoglobin 12.8, platelets 143. Sodium 136, potassium 4.8. Bicarb decreased to 39. BUN 49, creatinine 0.4. bloo d sugars controlled. 04/10/2023 sitting up in chair, remains off of airvo, continues on 15 L high flow nasal cannula, maintaining O2 sats in the low 90s. Borderline hypotension. Chest x-ray reported improving patchy left perihilar and peripheral infiltrate persists with pleural thickening, right basilar atelectasis or additional infiltrate. Maintained on cefepime, afebrile, WBC 18.4. Renal function stable. 04/11/2023 sitting up in chair, she decreased to 13 L high flow nasal cannula maintaining O2 sats in the low 90s. More alert today, Marinol dose decreased yesterday. Significant weakness, barely able to stand without assistance. Continues on Cefepime, Decadron, WBC 26, afebrile. Evaluated by cardiology related to abnormal EKG/ ST elevation, asymptomatic. Denies chest pain, pa lpitations. 2-D echo ordered. 04/15/2023 maintaining O2 sats in the high 80s to low 90s on 8 L high flow nasal cannula. Afebrile, T-max 99.7. PT reports patient was able to ambulate 10 feet with assist. Denies chest pain, palpitation. Echo completed reporting normal LV function, 50-55%, mild aortic sclerosis without significant aortic stenosis. 04/16/2023 maintaining O2 sats in the low 90s on 7 L high flow nasal cannula. Tachycardic, heart rate in the low 100s to 1 teens, currently. Afebrile, WBC trending down, 17.2. Hemoglobin 11.8, platelets 190. Renal function improving. Magnesium 1.6. Denies chest pain, palpitations. 04/17/23 maintaining O2 sats in the low 90s on 8 L high flow nasal cannula . Occasional productive cough.Tachycardic, 1 teens. Afebrile. Diet Intake im proving. Denies Chest pain, palpitations. 04/18/2023 currently maintaining O2 sats of 94% on 8 L high flow nasal cannula, mild tachycardia. Afebrile, WBC 17.5. Diet intake around 50%. Denies chest pain, palpitations. Magnesium 1.5, supplements ordered. 04/19/2023: Patient is reevaluated today for his ongoing pneumonia, acute respiratory failure, lung adenocarcinoma. He is currently on 70 L of oxygen. He is quite debilitated. His remained afebrile. Blood pressure remains stable. Oxygen status is somewhat low. No labs are pending for today. Pulmonology notes reviewed. Patient denies any significant complaints other than shortness of breath with exertion 04/20/2023: Staff report that after trying to wean his oxygen again last night he became quite dyspneic and short of breath. He is much more stable now. Currently on oxygen at 6 L/m, no labs pending for today. He denies any complaints this time other than the ongoing shortness of breath with exertion. I discussed ECF once his oxygen status is at 5 L/m period 04/21/23 02 weaned further down to 5 L, maintaining O2 sats in the low 90s. Significant clinical improvement. Patient will be discharged today to [facility] rehab in a stable condition with guarded prognosis pending final DC recommendations and clearance per pulmonary. Antibiotic course/ cefepime completed. The impression and plan of care has been dictated as directed. : I performed a history and examination of this patient, discussed the same with the dictator. I agree with the dictator's note ,documented as a scribe. Any additional findings or plans will be noted. Patient Condition at Discharge: Stable Plan - Discharge Summary Discharge Rx Participant: No New Discharge Prescriptions: New Zinc Sulfate [Orazinc] 220 mg PO DAILY cap Pantoprazole [Protonix] 40 mg PO AC-BRKFST tab Magnesium Oxide [Mag-Ox] 400 mg PO BID tab Aspirin 81 mg PO DAILY tab Docusate [Colace] 100 mg PO BID cap Heparin Sodium,Porcine (1 ml) [Heparin Sodium] 5,000 unit SQ Q8HR each Potassium Chloride ER [K-Dur 10] 10 meq PO DAILY tab Escitalopram [Lexapro] 10 mg PO DAILY tab Midodrine [ProAmatine] 5 mg PO AC-BID tab Budesonide-Formot 160-4.5 Mcg [Symbicort 160-4.5 Mcg Inhaler] 2 puff INHALATION RT-BID each Calcium Carbonate [Tums] 1,000 mg PO QID PRN tab PRN Reason: Heartburn Acetaminophen Tab [Tylenol] 650 mg PO Q6HR PRN tab PRN Reason: Mild Pain Or Fever > 100.5 predniSONE 10 mg PO DAILY #30 tab Continue Simvastatin [Zocor] 40 mg PO HS Ubidecarenone [Co Q-10] 10 mg PO DAILY@1200 Fluticasone/Umeclidin/Vilanter [Trelegy Ellipta 100-62.5-25] 1 puff INHALATI ON RT-DAILY Vit C/E/Zn/Coppr/Lutein/Zeaxan [Preservision Areds 2 Softgel] 1 tab PO DAILY@1200 Ketoconazole 2% Shampoo [Nizoral] 1 applic TOPICAL DAILY PRN PRN Reason: FLARE UPS Fluocinonide 0.05% Solution 1 applic TOPICAL HS PRN PRN Reason: FLARE UPS Turmeric Root Extract [Turmeric] 500 mg PO HS Krill/Om-3/Dha/Epa/Phospho/Ast [Krill Oil 500 mg Softgel] 1 cap PO DAILY@1200 ALPRAZolam [Xanax] 0.25 mg PO Q6H PRN #12 tab PRN Reason: Anxiety Changed Albuterol Inhaler [Ventolin Hfa Inhaler] 2 puff INHALATION Q4H PRN #0 PRN Reason: Shortness Of Breath Albuterol Nebulized [Ventolin Nebulized] 2.5 mg INHALATION QID #0 Discontinued Bisoprolol-Hctz 5-6.25 mg [Ziac 5-6.25 MG] 1 tab PO DAILY amLODIPine BESYLATE/BENAZEPRIL [amLODIPine BESYLATE/BENAZEPRIL 10-20 MG] 1 cap PO DAILY Omeprazole Magnesium [PriLOSEC OTC] 20 mg PO BID lisinopriL [Zestril] 20 mg PO DAILY 30 Days #30 tab Discharge Medication List Simvastatin [Zocor] 40 mg PO HS 02/04/17 [History] Ubidecarenone [Co Q-10] 10 mg PO DAILY@1200 08/24/16 [History] Fluticasone/Umeclidin/Vilanter [Trelegy Ellipta 100-62.5-25] 1 puff INHALATION RT-DAILY 07/25/20 [History] Vit C/E/Zn/Coppr/Lutein/Zeaxan [Preservision Areds 2 Softgel] 1 tab PO DAILY@1200 07/25/20 [History] Fluocinonide 0.05% Solution 1 applic TOPICAL HS PRN 03/07/23 [History] Ketoconazole 2% Shampoo [Nizoral] 1 applic TOPICAL DAILY PRN 03/07/23 [History] Krill/Om-3/Dha/Epa/Phospho/Ast [Krill Oil 500 mg Softgel] 1 cap PO DAILY@1200 03/07/23 [History] Turmeric Root Extract [Turmeric] 500 mg PO HS 03/07/23 [History] ALPRAZolam [Xanax] 0.25 mg PO Q6H PRN #12 tab 04/21/23 [Rx] Acetaminophen Tab [Tylenol] 650 mg PO Q6HR PRN tab 04/21/23 [Rx] Albuterol Inhaler [Ventolin Hfa Inhaler] 2 puff INHALATION Q4H PRN #0 04/21/23 [Rx] Albuterol Nebulized [Ventolin Nebulized] 2.5 mg INHALATION QID #0 04/21/23 [Rx] Aspirin 81 mg PO DAILY tab 04/21/23 [Rx] Budesonide-Formot 160-4.5 Mcg [Symbicort 160-4.5 Mcg Inhaler] 2 puff INHALATION RT-BID each 04/21/23 [Rx] Calcium Carbonate [Tums] 1,000 mg PO QID PRN tab 04/21/23 [Rx] Docusate [Colace] 100 mg PO BID cap 04/21/23 [Rx] Escitalopram [Lexapro] 10 mg PO DAILY tab 04/21/23 [Rx] Heparin Sodium,Porcine (1 ml) [Heparin Sodium] 5,000 unit SQ Q8HR each 04/21/23 [Rx] Magnesium Oxide [Mag-Ox] 400 mg PO BID tab 04/21/23 [Rx] Midodrine [ProAmatine] 5 mg PO AC-BID tab 04/21/23 [Rx] Pantoprazole [Protonix] 40 mg PO AC-BRKFST tab 04/21/23 [Rx] Potassium Chloride ER [K-Dur 10] 10 meq PO DAILY tab 04/21/23 [Rx] Zinc Sulfate [Orazinc] 220 mg PO DAILY cap 04/21/23 [Rx] predniSONE 10 mg PO DAILY #30 tab 04/21/23 [Rx] Follow up Appointment(s)/Referral(s): Quintin Hays MD [STAFF PHYSICIAN] - 4 Weeks (Please Call office to schedule an appointment once patient discharged from rehabilitation is planned) Antoine Nichols MD [Primary Care Provider] - 1-2 days Activity/Diet/Wound Care/Special Instructions: Hali STEVENS cbc,bmp in 3 days Cefepime completed as per pulmonary Discharge Disposition: TRANSFER TO SNF/ECF
[2023-04-21] MEDS: BISOPROLOL 5 MG TAB PO SCH (13:33)
[2023-04-21] MEDS: DEXTROSE 5%-0.9% NACL 1,000 ML IV SCH (15:28)
[2023-04-21] MEDS: ATORVASTATIN 20 MG TAB PO SCH (20:37)
[2023-04-22] MEDS: PANTOPRAZOLE 40 MG TABLET PO SCH (06:20)
[2023-04-22] MEDS: MIDODRINE 5 MG TAB PO SCH (06:20)
[2023-04-22] MEDS: droNABinol 2.5 MG CAP PO SCH (06:20)
[2023-04-22] MEDS: FAMOTIDINE 20 MG TAB PO SCH (08:35)
[2023-04-22] MEDS: FUROSEMIDE 40 MG TAB PO SCH (08:35)
[2023-04-22] MEDS: guaiFENesin 600 MG TABLET.ER PO SCH (08:35)
[2023-04-22] MEDS: BISOPROLOL 5 MG TAB PO SCH (08:35)
[2023-04-22] MEDS: MAGNESIUM OXIDE 400 MG TAB PO SCH (08:35)
[2023-04-22] MEDS: ASCORBIC ACID 500 MG TAB PO SCH (08:35)
[2023-04-22] MEDS: HEPARIN SODIUM,PORCINE 5,000 UNIT/ML 1 ML VIAL SQ SCH ×2 (08:35→15:13)
[2023-04-22] MEDS: POTASSIUM CHLORIDE ER 10 MEQ TAB.ER.PRT PO SCH (08:35)
[2023-04-22] MEDS: DEXAMETHASONE SOD PHOSPHATE 10 MG/ML 1 ML VIAL IVP SCH (08:35)
[2023-04-22] MEDS: ESCITALOPRAM 10 MG TAB PO SCH (08:35)
[2023-04-22] MEDS: ASPIRIN 81 MG PO SCH (08:35)
[2023-04-22] MEDS: ZINC SULFATE 220 MG CAP PO SCH (08:35)
[2023-04-22] MEDS: CHOLECALCIFEROL 25 MCG (1000 IU) TABLET PO SCH (08:35)
[2023-04-22] MEDS: DOCUSATE 100 MG CAP PO SCH (08:35)
[2023-04-22] MEDS: SYMBICORT 160-4.5 MCG INHALER INHALATION SCH (08:37)
[2023-04-22] MEDS: ALBUTEROL HFA INHALER INHALATION SCH ×3 (08:37→15:58)
[2023-04-22] MEDS: SODIUM CHLORIDE 0.9% 1,000 ML IV SCH (08:42)
--- NOTE | 2023-04-22 12:42 | P.PN ---
Subjective Progress Note Date: 04/22/23 I am seeing this patient in new consultation today 03/24/2023 for suspected left lower lobe pneumonia. Patient is a 73-year-old white male with past medical history significant for recent admission with left lower lobe pneumonia, discharged on March 17. During this admission, the patient was also found to have metastatic adenocarcinoma of the lung based on pleural fluid cytology from a left sided thoracentesis. He also has history of COPD, hypertension, hyperlipidemia, GERD, and ongoing chronic tobacco dependence. Patient is known to have a 10 mm x 7mm right upper lung nodule, originally seen back in June,. His PCP is Dr. Nichols. Chest CT from his most recent admission, March 07, demonstrated a right upper lung bronchus large airway occlusion concerning for obstructive mass. There was also a loculated left pleural effusion with left lung consolidation. The patient was treated with IV antibiotics and discharged home on Augmentin. He was established with an oncologist, and is reportedly going to undergo a PET scan outpatient. Patient returned to the emergency room last night, reporting that he's had ongoing progressively worsening shortness of breath since discharge. He admits an associated nonproductive cough. Denies any fever, chills, myalgias, hemoptysis. Denies any chest pain, palpitations, lower extremity edema, syncope. A chest x-ray done on arrival, showed worsening airspace opacities within the left mid and lower lung zones compared to prior imaging. There was also suspected right lower lung atelectasis, and trace to small bilateral pleural effusions. Patient did test positive for COVID-19, possibly an incidental finding. Patient is currently sitting up in bed, on BiPAP with settings 12/6 and FiO2 of 60%. Appears fairly comfortable. Respiratory rat e is high 20s to low 30s and is achieving tidal volumes around 400. CBC on arrival shows leukocytosis with WBC count of 16.9, hemoglobin 14.7, hematocrit 45.4, platelets 150. BMP shows sodium 133, potassium 4.1, chloride 92, serum bicarbonate 39, BUN 17, creatinine 0.43, glucose 99. Currently receiving normal saline at 100 ML's per hour. He was started on empiric Zosyn and azithromycin. Currently afebrile. Also receiving Ventolin HFA, Symbicort inhaler, and IV Decadron. Patient is being monitored closely on the cardiac stepdown unit. Progress note dated 03/25/2023. 73-year-old male admitted on March 24, with a diagnosis of possible left lower lobe pneumonia, and hypoxemic respiratory failure. Currently, the patient is on BiPAP, with settings of 12/6, and 70%. He has no IV fluids running at this time. He did test positive for coronavirus. He does have a history of lung cancer, adenocarcinoma. The only labs today include glucose of 110. Chest x-ray from March 24, shows a small to moderate-sized left pleural effusion, with increased small right pleural effusion. There is also some right lower lung consolidation. Progress note dated 03/26/2023. 73-year-old male admitted on March 24, with a diagnosis of possible left lower lobe pneumonia and hypoxemic respiratory failure. The patient is currently on AIRVO, with settings of 60 L/m and an FiO2 of 90%. He's not receiving any IV fluids. A chest x-ray is ordered for March 27. The only lab today with a glucose of 111. Clinically, the patient's doing about the same. Blood cultures are currently negative. Progress note dated 03/27/2023. The patient is seen today in room 368. He continues on AIRVO, with settings of 60 L/m, with an FiO2 of 90%. The chest x-ray done today, shows worsening infiltrates. Clinically, the patient appears reasonably stable. White count 18.6, hemoglobin 10.8, hematocrit 46.2, and platelet count was normal. Sodium 139, potassium 4.6, chlorides 96, CO2 39, BUN 18, and creatinine 0.48. Blood cultures are negative. Chest x-ray shows bilateral pleural/parenchymal opa cities, left greater than right. Radiologist feels there may be some improvement. Progress note dated 03/28/2023. This is a 74-year-old male seen in room 368. The patient continues on AIRVO, at 60 L/m, and an FiO2 of 90%. The patient does feel better. He's not receiving any IV fluids. Labs today include only a glucose of 89. As mentioned yesterday, the chest x-ray, as interpreted by the radiologist, suggests some improvement. Progress note dated 03/29/2023. The patient is seen today in room 368. He continues on AIRVO, at 60 L/m, with an FiO2 of 90%. He is getting D5 with normal saline, at 50 mL an hour. She does feel like he is getting better. He looks relatively stable, and his respiratory status, despite being on AIRVO, appears stable. White count is 15.2, with a normal hemoglobin, hematocrit, and platelet count. Sodium 140, potassium 4.4, chlorides 99, CO2 39, BUN 25, and creatinine 0.43. Progress note dated 03/30/2023. The patient is seen today in room 368. He is on AIRVO, with settings of 60 L/m, for flow rate, and an FiO2, that has been dropped down to 80%. The patient continues on saline at 75 mL an hour. Chest x-ray ordered for tomorrow, March 31. No new labs today, other than a glucose of 99. 03/31 2023, the patient remains on high flow oxygen. He remains on 60 L an FiO2 has been done to 70%.the patient remains weak, short of breath, oxygenation. 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 At the same time, the patient was diagnosed having an acute Covid 19 infection.repeat chest x-ray from today shows a stable patchy infiltrates in the left along with small bilateral pleural effusion more so on the left. Meanwhile, the patient was diagnosed having Covid 19 infection on 04/19/2023 and the patient is currently on Decadron. The patient is also was found to have Enterobacter in his sputum and a bacterial pneumonia is suspected. His currently not receiving any antibiotic coverage. He is on Decadron 6 mg IV every 24 hours. He is on Ventolin HFA 4 times a day and Symbicort as maintenance. Rest of the home medications have been all resume. Labs showed a basic on of 12.5, hemoglobin 16.9, BUN is 23 with a creatinine of 0.4. His current pulse ox is 94%. Is getting progressively weak and more debilitated. 04/01 2023, the patient remains on high flow oxygen. This morning, the patient remains on 60 L of 70%. He was provided incentive spirometer. He denies having any worsening shortness of breath. He remains on Decadron 6 mg IV every 24 hours. He did have also patchy infiltrates on the left as discussed earlier and the patient was found to have Enterobacter in his sputum. Currently is afebrile. Hemodynamically stable. Oral intake is quite limited increase feeling weak and debilitated. Blood work was from yesterday and no recent blood work from today. His renal function is stable. Hemoglobin stable at 13.9. He is afebrile. Pulse ox is in order of 92%. No other significant events over the past 24 hours. Improvement is slow and limited at this point in time. 13 2022, the patient remains on 60 L an FiO2 of 70% on high flow oxygen. The patient is essentially the same. The patient has a congested cough. Is unable to produce significant sputum. I'm very much interested in obtaining another sputum samples for cultures. Meanwhile, based on his earlier Enterobacter growth in his sputum, the patient is currently on IV cefepime. The patient remains on Decadron 6 mg IV every 24 hours. Repeat chest x-ray from today shows no interval change. There is persistent stable. There is persistent left mid and upper lobe pulmonary infiltrate. There is also small bilateral pleural effusion. The patient is weak. The patient is lethargic. He is arousable and is communicating. Oral intake is quite diminished at this point. He is afebr ile. He is hemodynamically stable. On today's evaluation of 04/03/2023, the patient states that he's feeling better. Oxygenation is still impaired and the patient is still requiring high flow oxygen. Currently is on 60 L an FiO2 of 70%. His pulse ox is ranging between 93-95%. He continues to have a congestive cough. IV cefepime was added. The patient remains on steroids. The chest x-ray from yesterday showed a stable consolidation left lung along with a small left-sided pleural effusion. No new labs are available from today. His tolerating diet. He remains on Decadron 6 mg IV every 24 hours. No other significant events overnight. He was encouraged to use incentive spirometer. On today's evaluation of 04/04/2023, the patient remains on Airvo at 60 L an FiO2 of 70%. Is essentially the same setting over the past several days. No major changes in his oxygenation. Continues to produce copious amount of secretions and his cough is wet and congested and the patient is producing mucus. He does not have another complaints at this point. He is weak. Oral intake is quite diminished. Is on IV cefepime. He remains on Decadron. Unfortunately, he is not making much of progress. I discussed the case with his over the phone and explained to do situation. Current pulse ox is in order of 94-95% on the current high flow oxygen setting. 04/05/2023, the patient is on 60 L an FiO2 of 70%. Pulse ox is in order of 95%. Chest x-ray findings remain stable and I reviewed the chest x-ray from today and there is no significant interval change. There is a patchy pulmonary infiltrate persistent in the left lung. No significant interval change. The patient remains on IV cefepime. The patient is afebrile. On blood work, the patient's serum bicarbs of 45 and the patient will be given 2 doses of Diamox today. Sodiums of 132. The white cell count 13.4, hemoglobin is at 14.1 04/06 2023, no major improvement and the patient remains on high flow oxygen at 60 L an FiO2 of 70%. Continues to be on Decadron. Continues to be on cefepime. Most recent chest x-ray from 04/05/2023 showed stable findings. He is a DNR/DNI CODE STATUS. The patient is seen today 04/07/2023 in follow-up on the selective care unit. He is currently sitting up in bed. He is quite weak and debilitated. He continues to require AirVo high flow oxygen at 60 L and 70% FiO2 with O2 satur ation in the 90s. Sputum culture was positive for Enterobacter aerogenes. The cultures revealed no growth. Blood sugar 135. He remains on Symbicort, albuterol, Decadron and vitamin supplements. Heparin for DVT prophylaxis. Antibiotics in the form of cefepime. Family is considering comfort car e/hospice. The patient is seen today 04/08/2023 in follow-up on the selective care unit. He is awake. Quite weak and debilitated. He remains on AirVo high flow oxygen at 60 L and 70% FiO2. Sputum culture was positive for Enterobacter aerogenes. Blood cultures revealed no growth. Glucose 113. He is continued on Symbicort, albuterol, vitamin supplements. She remains on Decadron. Antibiotics in the form of cefepime. Remains on diuretics. Currently in a negative balance. The patient is seen today 04/09/2023 in follow-up on the selective care unit. He remains awake and alert. Resting in bed. Still requiring AirVo high flow nasal cannula at 60 L and 65% FiO2. Sputum culture positive for Enterobacter aerogenes. Blood cultures reveal no growth. White count 18.4. Hemoglobin 12.8 . Platelets 143. Sodium 136. Potassium 4.8. Bicarb. 9. BUN 49. Creatinine 0.40. AST 46. ALT 108. Albumin 2.9. He is continued on Symbicort, albuterol, vitamin supplements. She remains on Decadron. Antibiotics in the form of cefepime. Remains on diuretics. The patient is seen today 04/13/2023 in follow-up on the selective care unit. He is sitting up in a chair at the bedside. Awake and alert in no acute distress. Is currently on 9 L high flow nasal cannula with O2 saturations in the 90s. He's been afebrile. Hemodynamically stable. Sputum culture was positive for Enterobacter aerogenes. Blood cultures reveal no growth. Sodium 136. Potassium 4.5. Bicarb 38. BUN 49. Creatinine 0.52. Glucose 129. He is continued on Symbicort, albuterol, Decadron. Heparin for DVT prophylaxis. Remains on vitamin supplements. Patient is seen today 04/20/2023 in follow-up on the selective care unit. He is currently awake and alert in no acute distress. Sitting up in a chair at the bedside. He is currently down to 6 L high flow nasal cannula. He remains quite weak and debilitated. He is afebrile. Hemodynamically stable. Recent chest x- ray reveals patchy peripheral and basilar opacities left greater than right without significant change. Consistent with COVID-19 pneumonia. Sputum culture was positive for Enterobacter aerogenes. Completed cefepime. He remains on Symbicort, albuterol, Decadron, heparin. Remains on vitamin supplements. 04/21/2023, the patient is being seen for a follow-up. Is quite lethargic and weak. He may need some further rehabilitation. Nevertheless, over the past 3-4 weeks, the patient progressive improvement in oxygenation and currently is down to 5 L of oxygen by nasal cannula. He continues to have some cough and congestion. Completed his antibiotic course. His earlier sputum sample was positive for Enterobacter. His echoes at 20 with a hemoglobin of 11 and a platelet count of 191. BUN is 26 with a creatinine of 0.4 and a sodium level is at 135. Is currently on no antibiotics is completed his course of cefepime. He has been on Symbicort and albuterol HFA [id number]. The patient should be able to go back on his nebulizers. The patient will be also released to [facility] on 10 mg of prednisone maintenance. 04/22/2023, the patient has no specific complaints. The patient was supposed to get discharged to [facility] yesterday. However, he encountered some oxygen desaturation with activity and the patient was brought up to 9 L and currently is back to 5 L of oxygen nasal cannula. He seems to be quite comfortable. He continues to have some congested cough. No significant sputum production. Remains on Decadron. Remains on Lasix. Remains on bronchodilators. He is gradually trying to increase his oral intake. No chest pain. No other complaints otherwise. The patient is resting comfortably in bed. Overall weak and the patient will need aggressive rehabilitation. Objective - Vital Signs Vital signs: Vital Signs Temp 97.8 F 04/22/23 08:00 Pulse 90 04/22/23 08:30 Resp 18 04/22/23 08:00 BP 101/63 04/22/23 08:00 Pulse Ox 91 L 04/22/23 08:38 FiO2 66 04/09/23 08:18 Intake & Output 04/21/23 04/22/23 04/22/23 18:59 06:59 18:59 Output Total 925 350 Balance -925 -350 Output: Urine 925 350 Other: Voiding Method Urinal Urinal Urinal # Bowel Movements 1 - Exam GENERAL EXAM: Alert, pleasant 73-year-old male, remains on 5 L high flow nasal cannula, fairly comfortable. HEAD: Normocephalic. EYES: Normal reaction of pupils, equal size. NOSE: Clear with pink turbinates. THROAT: No erythema or exudates. NECK: No masses, no JVD. CHEST: No chest wall deformity. LUNGS: Equal air entry with crackles in the bilateral bases. CVS: S1 and S2 normal with no audible murmur, regular rhythm. ABDOMEN: No hepatosplenomegaly, normal bowel sounds, no guarding or rigidity. SPINE: No scoliosis or deformity SKIN: No rashes CENTRAL NERVOUS SYSTEM: No focal deficits, tone is normal in all 4 extremities. EXTREMITIES: There is no peripheral edema. No clubbing, no cyanosis. Peripheral pulses are intact. - Labs CBC & Chem 7: 04/21/23 07:24 04/21/23 07:24 Assessment and Plan Plan: Acute hypoxemic respiratory failure secondary to recurrent/persistent left lower lobe pneumonia. Chest x-ray on arrival demonstrates worsening opacities within the left mid and lower lung zones compared to his recent imaging. There was also suspected right lower lung atelectasis, and trace to small bilateral pleural effusions. Also, did test positive for COVID-19, possibly an incidental finding. The patient has also Enterobacter in his sputum and patchy infiltrates are seen in the left upper lobe and the left lower lobe. Rule out malignancy/primary bronchogenic carcinoma. Rule out bacterial infection/pneumonia as the patient was found to have Enterobacter in his sputum. In addition, he has advanced COPD, and a malignant left-sided pleural effusion. No major interval change in his overall condition and oxygenation. The patient remains on Decadron. Repeat chest x-ray from 04/18/2023 shows a stable peripheral left lung pulmonary infiltrate and small bilateral pleural effusions. The patient continues to require 5 L high flow nasal cannula to maintain a oxygenation saturation above 90% Leukocytosis, secondary to above Acute COPD exacerbation, secondary to above, improved Recent diagnosis of metastatic pulmonary adenocarcinoma based on pleural fluid cytology from a left-sided thoracentesis 03/11/23 History of right apical lung nodule measuring 10 x 7 mm June, Benign essential hypertension Hyperlipidemia GERD Chronic ongoing tobacco dependence Plan: Anticipate some fluctuations oxygen levels as the patient has not fully recovered. There may be some exertional oxygen desaturation and this is expected. I feel that the patient is stable enough to be discharged for rehabilitation. I would suggest switching him to a 10 mg of prednisone as maintenance at a time of discharge. The patient should be able to go to [facility] on oxygen at 5 L, Symbicort 2 puffs twice a day, albuterol nebulizer should be able to be started on this patient. I would suggest also maintaining him on a 10 mg of prednisone on a daily basis. Continue to titrate down the FiO2 as tolerated Continue current treatment plan Plan is for transfer to [facility] possibly today We'll continue to follow
[2023-04-22] MEDS: DEXTROSE 5%-0.9% NACL 1,000 ML IV SCH (14:36)
[2023-04-22 15:21] VITALS: BP 96/62; PULSE 89; RESP 24; TEMP 98.1
[2023-04-23] MEDS ORDERED: DEXAMETHASONE SOD PHOSPHATE 10 MG/ML 1 ML VIAL IVP SCH (09:00)
== END 2023-04-22 16:01 | DRG 177 ==
LOC: EC 16:53 → 3SCARD 19:15
PROVIDERS: ADMIT Family Medicine; ATTEND Family Medicine
PROC: 5A09457 Assistance with Respiratory Ventilation, 24-96 Consecutive Hours, Continuous Positive Airway Pressure (ICD-10-PCS; principal; 2023-03-23)
DX: U07.1 COVID-19 (principal); J12.82 Pneumonia due to coronavirus disease 2019; J96.21 Acute and chronic respiratory failure with hypoxia; J15.69 Pneumonia due to other Gram-negative bacteria; R64 Cachexia; J44.1 Chronic obstructive pulmonary disease with (acute) exacerbation; J44.0 Chronic obstructive pulmonary disease with (acute) lower respiratory infection; J91.0 Malignant pleural effusion; C34.11 Malignant neoplasm of upper lobe, right bronchus or lung; J98.11 Atelectasis; K62.5 Hemorrhage of anus and rectum; I95.9 Hypotension, unspecified; I70.0 Atherosclerosis of aorta; Z66 Do not resuscitate; R62.7 Adult failure to thrive; K21.9 Gastro-esophageal reflux disease without esophagitis; R54 Age-related physical debility; E78.5 Hyperlipidemia, unspecified; I10 Essential (primary) hypertension; F41.8 Other specified anxiety disorders; G47.30 Sleep apnea, unspecified; H91.90 Unspecified hearing loss, unspecified ear; F17.201 Nicotine dependence, unspecified, in remission; K57.90 Diverticulosis of intestine, part unspecified, without perforation or abscess without bleeding; Z99.81 Dependence on supplemental oxygen; Z79.51 Long term (current) use of inhaled steroids; Z79.899 Other long term (current) drug therapy
CPT/HCPCS: 36415; 71045; 80048; 80053; 81003; 83605; 83735; 84145; 84443; 84484; 85025; 85027; 85610; 85730; 87040; 87070; 87077; 87186; 87205; 87449; 87636; 93005; 93306; 94640; 94660; 94760; 96365; 96367; 96375; 99291

== ENCOUNTER 2023-04-27 16:48 | Inpatient (IN) | payer MEDICARE, OTHER ==
[2023-04-27 17:04] VITALS: TEMP 97.4
--- NOTE | 2023-04-27 17:29 | ED ---
General Adult HPI - General Chief complaint: GI Bleed Stated complaint: GI Bleed Time Seen by Provider: 04/27/23 16:49 Source: EMS Mode of arrival: EMS Limitations: no limitations - History of Present Illness Initial comments: Dictation was produced using [employer] dictation software. please excuse any grammatical, word or spelling errors. Chief Complaint: 73-year-old male with past medical history of malignant lung cancer presents to the ER for bright red blood per rectum History of Present Illness: Patient 73-year-old male he is currently DO NOT RESUSCITATE. He is a resident at [facility]. He has history of malignant lung cancer. Apparently he has been having bright red blood per rectum. According to nursing documentation patient was noted to have some streaks of blood when jail staff went to wipe them after bowel movement. He does apparently have a history of hemorrhoids and diverticulitis. Complains of some rectal pain and also some suprapubic abdominal pain. They state that his blood pressure has been a little lower than normal. Patient denies any fever or constitutional symptoms. The ROS documented in this emergency department record has been reviewed and confirmed by me. Those systems with pertinent positive or negative responses have been documented in the HPI. All other systems are other negative and/or noncontributory. - Related Data Home Medications Medication Instructions Recorded Confirmed Simvastatin [Zocor] 40 mg PO HS@2100 08/24/16 04/27/23 Fluticasone/Umeclidin/Vilanter 1 puff INHALATION RT-DAILY@1000 07/25/20 04/27/23 [Trelegy Ellipta 100-62.5-25] Vit C/E/Zn/Coppr/Lutein/Zeaxan 1 tab PO DAILY@0800 07/25/20 04/27/23 [Preservision Areds 2 Softgel] Krill/Om-3/Dha/Epa/Phospho/Ast 1 cap PO DAILY@0800 03/07/23 04/27/23 [Krill Oil 500 mg Softgel] Turmeric Root Extract [Turmeric] 500 mg PO HS@2100 03/07/23 04/27/23 Albuterol Inhaler [Ventolin Hfa 2 puff INHALATION RT-Q4H PRN 04/27/23 04/27/23 Inhaler] Albuterol Nebulized [Ventolin 2.5 mg INHALATION RT-Q4H PRN 04/27/23 04/27/23 Nebulized] Albuterol Nebulized [Ventolin 2.5 mg INHALATION 04/27/23 04/27/23 Nebulized] RT-QID@,,, Ascorbic Acid [Vitamin C] 1,000 mg PO DAILY@0800 04/27/23 04/27/23 Aspirin 81 mg PO DAILY@0804/27/23 04/27/23 Bisoprolol [Zebeta] 5 mg PO DAILY@0804/27/23 04/27/23 Budesonide-Formot 160-4.5 Mcg 2 puff INHALATION RT-BID@0800,169904/27/23 04/27/23 [Symbicort 160-4.5 Mcg Inhaler] Cholecalciferol [Vitamin D3 (25 25 mcg PO DAILY@79904/27/23 04/27/23 Mcg = 1000 Iu)] Docusate [Colace] 100 mg PO BID@0800,1700 04/27/23 04/27/23 Ensure Enlive 237 ml PO TID@,,04/27/23 04/27/23 Escitalopram [Lexapro] 10 mg PO DAILY@0804/27/23 04/27/23 Furosemide [Lasix] 40 mg PO DAILY@79904/27/23 04/27/23 Heparin Sodium,Porcine (1 ml) 5,000 unit SQ TID@0600,1400,2200 04/27/23 04/27/23 [Heparin Sodium] Magic Cup 1 dose PO BID-W/MEALS@04/27/23 04/27/23 Magnesium Hydroxide [Milk of 7,200 mg PO DAILY PRN 04/27/23 04/27/23 Magnesia Concentrate] Magnesium Oxide [Mag-Ox] 400 mg PO BID@0800,1700 04/27/23 04/27/23 Midodrine [ProAmatine] 5 mg PO BID@0800,1700 04/27/23 04/27/23 Na Phos,M-B/Na Phos,Di-Ba [Fleet 133 ml RECTAL DAILY PRN 04/27/23 04/27/23 Adult] Pantoprazole [Protonix] 40 mg PO DAILY@0800 04/27/23 04/27/23 Potassium Chloride ER [K-Dur 10] 10 meq PO DAILY@1700 04/27/23 04/27/23 Zinc Sulfate [Orazinc] 220 mg PO DAILY@0800 04/27/23 04/27/23 bisacodyL [Dulcolax] 10 mg RECTAL DAILY PRN 04/27/23 04/27/23 droNABinol [Marinol] 2.5 mg PO DAILY@0800 04/27/23 04/27/23 guaiFENesin [Mucinex] 600 mg PO BID@0800,2100 04/27/23 04/27/23 predniSONE 10 mg PO DAILY@0800 04/27/23 04/27/23 Previous Rx's Medication Instructions Recorded ALPRAZolam [Xanax] 0.25 mg PO Q6H PRN #12 tab 04/21/23 Acetaminophen Tab [Tylenol] 650 mg PO Q6HR PRN tab 04/21/23 Calcium Carbonate [Tums] 1,000 mg PO QID PRN tab 04/21/23 Allergies Allergy/AdvReac Type Severity Reaction Status Date / Time No Known Allergies Allergy Verified 04/27/23 19:18 Review of Systems ROS Statement: Those systems with pertinent positive or pertinent negative responses have been documented in the HPI. ROS Other: All systems not noted in ROS Statement are negative. Past Medical History Past Medical History: Cancer, COPD, GERD/Reflux, Hyperlipidemia, Hypertension Additional Past Medical History / Comment(s): COPD, diverticulosis,tobacco use syndrome, lung cancer History of Any Multi-Drug Resistant Organisms: None Reported Past Surgical History: Orthopedic Surgery, Tonsillectomy Additional Past Surgical History / Comment(s): right ankle surgery, COLONOSCOPY Past Anesthesia/Blood Transfusion Reactions: No Reported Reaction Past Psychological History: No Psychological Hx Reported Smoking Status: Former smoker Past Alcohol Use History: None Reported Past Drug Use History: None Reported - Past Family History Mother Family Medical History: Coronary Artery Disease (CAD) Father Family Medical History: Cancer Additional Family Medical History / Comment(s): lymphoma General Exam - General Exam Comments Initial Comments: PHYSICAL EXAM: General Impression: Alert and oriented x3, not in acute distress HEENT: Normocephalic atraumatic, extra-ocular movements intact, pupils equal and reactive to light bilaterally, mucous membranes moist. Cardiovascular: Heart regular rate and rhythm Chest: Able to complete full sentences, no retractions, no tachypnea Abdomen: abdomen soft, palpable tenderness to the suprapubic abdomen, non- distended, no organomegaly Musculoskeletal: Pulses present and equal in all extremities, no peripheral edema Motor: no focal deficits noted Neurological: CN II-XII grossly intact, no focal motor or sensory deficits noted Skin: Intact with no visualized rashes Psych: Normal affect and mood Rectal exam: No gross blood, no melanotic stool, no hemorrhoids noted Limitations: no limitations Course Vital Signs 04/27/23 04/27/23 16:50 19:40 Temperature 97.4 F L Pulse Rate 96 90 Respiratory 20 16 Rate Blood Pressure 90/62 98/57 O2 Sat by Pulse 94 L 94 L Oximetry EKG Findings - EKG Comments: EKG Findings:: My EKG interpretation: Ventricular rate 102, sinus tachycardia,. 156, QRS 70, QTC 397. No CA prolongation, no QTC prolongation, no ST or T-wave changes noted. EKG compared to 04/10/2023 showing no changes. Overall, this EKG is unremarkable Medical Decision Making - Medical Decision Making Was pt. sent in by a medical professional or institution (, PA, GENERAL SURGERY PHYSICIAN ASSISTANT, urgent care, hospital, or jail...) When possible be specific @ -No Did you speak to anyone other than the patient for history (EMS, parent, family, police, friend...)? What history was obtained from this source @ -No Did you review nursing and triage notes (agree or disagree)? Why? @ -I reviewed and agree with nursing and triage notes Were old charts reviewed (outside hosp., previous admission, EMS record, old EKG, old radiological studies, urgent care reports/EKG's, jail records)? Report findings @ -Previous documentation was reviewed showing patient was recently admitted. Differential Diagnosis (chest pain, altered mental status, abdominal pain women, abdominal pain men, vaginal bleeding, musculoskeletal, weakness, fever, dyspnea, syncope, headache, dizziness, GI bleed, back pain, seizure, CVA, palpatations, mental health)? @ -Differential Abdominal Pain Men: Appendicitis, cholecystitis, diverticulosis, ischemic bowel, pancreatitis, hepatitis, UTI, gastroenteritis, AAA, incarcerated hernia, bowel obstruction, constipation, inflammatory bowel, hepatitis, peptic ulcer disease, splenic infarction, perforated viscus, testicular torsion, this is not meant to be an all-inclusive list EKG interpreted by me (3pts min.). @ -see above X-rays interpreted by me (1pt min.). @ -None done CT interpreted by me (1pt min.). @ -Computed tomography scan of the abdomen shows Stool burden with colitis consistent with Angelita or colitis U/S interpreted by me (1pt. min.). @ -None done What testing was considered but not performed or refused? (CT, X-rays, U/S, labs)? Why? @ -None What meds were considered but not given or refused? Why? @ -None Did you discuss the management of the patient with other professionals (professionals i.e. , PA, GENERAL SURGERY PHYSICIAN ASSISTANT, lab, RT, psych nurse, social media marketing analyst, player services representative, teacher, chief digital officer, casework manager)? Give summary @ -Case discussed with on-call surgeon, Dr. Burgos who is aware of the patient and his presentation. He request patient be admitted to medicine. Case discussed with Dr. Neal was agreeable for admission Was smoking cessation discussed for >3mins.? @ -No Was critical care preformed (if so, how long)? @ -No Were there social determinants of health that impacted care today? How? (Homelessness, low income, unemployed, alcoholism, drug addiction, transportation, low edu. Level, literacy, decrease access to med. care, snf, rehab)? @ -No Was there de-escalation of care discussed even if they declined (Discuss DNR or withdrawal of care, Hospice)? DNR status @ -No What co-morbidities impacted this encounter? (DM, HTN, Smoking, COPD, CAD, Cancer, CVA, ARF, Chemo, Hep., AIDS, mental health diagnosis, sleep apnea, morbid obesity)? @ -None Was patient admitted / discharged? Hospital course, mention meds given and route, prescriptions, significant lab abnormalities, going to OR and other pertinent info. @ -73-year-old DO NOT RESUSCITATE male presents to the ER for abdominal pain and rectal bleeding. Computed tomography scan shows Bucklin or colitis. Vital signs shows soft blood pressure that stable. Lab shows leukocytosis 17.5. Stool occult blood positive. Patient not given large amounts of IV fluids due to concerns of lung issues. Patient given gentle hydration. Blood pressure medicine stable. Reevaluated bedside 8:11 PM from unit in stable medical condition. Undiagnosed new problem with uncertain prognosis? @ -No Drug Therapy requiring intensive monitoring for toxicity (Heparin, Nitro, Insulin, Cardizem)? @ -No Were any procedures done? @ -No Diagnosis/symptom? Acute, or Chronic, or Acute on Chronic? Uncomplicated (wi thout systemic symptoms) or Complicated (systemic symptoms)? @ -Stercoral colitis Side effects of treatment? @ -No Exacerbation, Progression, or Severe Exacerbation? @ -No Poses a threat to life or bodily function? How? (Chest pain, [place], [place], pneumonia, PE, COPD, DKA, ARF, appy, cholecystitis, CVA, Diverticulitis, Homicidal, Suicidal, threat to staff... and all critical care pts) @ -yes - Lab Data Result diagrams: 04/27/23 17:28 04/27/23 17:28 Lab Results 04/27/23 04/27/23 04/27/23 Range/Units 17:25 17:28 17:28 WBC 17.5 H (3.8-10.6) k/uL RBC 3.66 L (4.30-5.90) m/uL Hgb 11.2 L (13.0-17.5) gm/dL Hct 33.3 L (39.0-53.0) % MCV 91.0 (80.0-100.0) fL MCH 30.6 (25.0-35.0) pg MCHC 33.6 (31.0-37.0) g/dL RDW 17.3 H (11.5-15.5) % Plt Count 200 (150-450) k/uL MPV 9.8 Neutrophils % 92 % Lymphocytes % 3 % Monocytes % 3 % Eosinophils % 1 % Basophils % 0 % Neutrophils # 16.1 H (1.3-7.7) k/uL Lymphocytes # 0.5 L (1.0-4.8) k/uL Monocytes # 0.6 (0-1.0) k/uL Eosinophils # 0.1 (0-0.7) k/uL Basophils # 0.0 (0-0.2) k/uL Anisocytosis Slight PT (9.0-12.0) sec INR (<1.2) APTT (22.0-30.0) sec Sodium (137-145) mmol/L Potassium (3.5-5.1) mmol/L Chloride (98-107) mmol/L Carbon Dioxide (22-30) mmol/L Anion Gap mmol/L BUN (9-20) mg/dL Creatinine (0.66-1.25) mg/dL Est GFR (CKD-EPI)AfAm (>60 ml/min/1.73 sqM) Est GFR (CKD-EPI)NonAf (>60 ml/min/1.73 sqM) Glucose (74-99) mg/dL Calcium (8.4-10.2) mg/dL Total Bilirubin (0.2-1.3) mg/dL AST (17-59) U/L ALT (4-49) U/L Alkaline Phosphatase (38-126) U/L Total Protein (6.3-8.2) g/dL Albumin (3.5-5.0) g/dL Stool Occult Blood Positive (Negative) Blood Type O Positive Blood Type Recheck O Pos Bld Type Recheck Status No Antibody Screen NEGATIVE Spec Expiration Date 04/30/2023 - 232404/27/23 04/27/23 Range/Units 17:28 17:28 WBC (3.8-10.6) k/uL RBC (4.30-5.90) m/uL Hgb (13.0-17.5) gm/dL Hct (39.0-53.0) % MCV (80.0-100.0) fL MCH (25.0-35.0) pg MCHC (31.0-37.0) g/dL RDW (11.5-15.5) % Plt Count (150-450) k/uL MPV Neutrophils % % Lymphocytes % % Monocytes % % Eosinophils % % Basophils % % Neutrophils # (1.3-7.7) k/uL Lymphocytes # (1.0-4.8) k/uL Monocytes # (0-1.0) k/uL Eosinophils # (0-0.7) k/uL Basophils # (0-0.2) k/uL Anisocytosis PT 12.7 H (9.0-12.0) sec INR 1.2 H (<1.2) APTT 26.8 (22.0-30.0) sec Sodium 137 (137-145) mmol/L Potassium 4.6 (3.5-5.1) mmol/L Chloride 94 L (98-107) mmol/L Carbon Dioxide 35 H (22-30) mmol/L Anion Gap 8 mmol/L BUN 30 H (9-20) mg/dL Creatinine 0.41 L (0.66-1.25) mg/dL Est GFR (CKD-EPI)AfAm >90 (>60 ml/min/1.73 sqM) Est GFR (CKD-EPI)NonAf >90 (>60 ml/min/1.73 sqM) Glucose 100 H (74-99) mg/dL Calcium 8.7 (8.4-10.2) mg/dL Total Bilirubin 0.6 (0.2-1.3) mg/dL AST 22 (17-59) U/L ALT 37 (4-49) U/L Alkaline Phosphatase 89 (38-126) U/L Total Protein 6.1 L (6.3-8.2) g/dL Albumin 2.8 L (3.5-5.0) g/dL Stool Occult Blood (Negative) Blood Type Blood Type Recheck Bld Type Recheck Status Antibody Screen Spec Expiration Date Disposition Clinical Impression: Stercoral colitis Disposition: ADMITTED IP TO THIS [facility] Condition: Fair Referrals: Antoine Nichols MD [Primary Care Provider] - 1-2 days Decision Time: 20:12
[2023-04-27 18:01] LABS: INR 1.2 (<1.2); Partial Thromboplastin Time 26.8 sec (22.0-30.0); Prothrombin Time 12.7 sec (9.0-12.0)
[2023-04-27 18:02] LABS: Anisocytosis Slight; Basophils % (A) 0 %; Eosinophils # (A) 0.1 k/uL (0-0.7); Eosinophils % (A) 1 %; HCT 33.3 % (39.0-53.0); HGB 11.2 gm/dL (13.0-17.5); Lymphocytes # (A) 0.5 k/uL (1.0-4.8); Lymphocytes % (A) 3 %; MCH 30.6 pg (25.0-35.0); MCHC 33.6 g/dL (31.0-37.0); Mean Platelet Volume 9.8; Monocytes # (A) 0.6 k/uL (0-1.0); Monocytes % (A) 3 %; Neutrophils # (A) 16.1 k/uL (1.3-7.7); Neutrophils % (A) 92 %; Platelet Count 200 k/uL (150-450); RBC 3.66 m/uL (4.30-5.90); RDW 17.3 % (11.5-15.5); WBC 17.5 k/uL (3.8-10.6)
[2023-04-27 18:10] LABS: ALT 37 U/L (4-49); AST 22 U/L (17-59); African American GFR (CKD) >90 (>60 ml/min/1.73 sqM); Albumin 2.8 g/dL (3.5-5.0); Alkaline Phosphatase 89 U/L (38-126); Anion Gap 8 mmol/L; Blood Urea Nitrogen 30 mg/dL (9-20); Calcium 8.7 mg/dL (8.4-10.2); Carbon Dioxide 35 mmol/L (22-30); Chloride 94 mmol/L (98-107); Glucose 100 mg/dL (74-99); Non-African American GFR(CKD) >90 (>60 ml/min/1.73 sqM); Potassium 4.6 mmol/L (3.5-5.1); Sodium 137 mmol/L (137-145); Total Bilirubin 0.6 mg/dL (0.2-1.3); Total Protein 6.1 g/dL (6.3-8.2)
[2023-04-27] MEDS ORDERED: METOPROLOL TARTRATE 5 MG/5 ML VIAL IVP SCH (18:15)
--- NOTE | 2023-04-27 19:26 | CT ---
EXAMINATION TYPE: CT abdomen pelvis w con CT DLP: 772.7 mGycm, Automated exposure control for dose reduction was used. DATE OF EXAM: 04/27/2023 7:03 PM COMPARISON: 03/14/2023, 03/12/2023. PET/CT 06/15/2021 CLINICAL INDICATION:Male, 73 years old with history of abdominal pain + brbpr; GI bleed TECHNIQUE: Axial CT of the abdomen and pelvis. Sagittal and coronal reformats were created on a [employer] workstation. Contrast used:75cc mL of Isovue 370 with IV Contrast, (none if empty) Oral contrast used: without Oral Contrast (none if empty) FINDINGS: LOWER CHEST: Small left pleural effusion with pleural nodularity partially visualized along the later al aspect on the left measuring up to 14 x 39 mm. Demonstrates severe atherosclerosis. Consolidation changes in the right lung base which have increased compared to prior on 03/14/2023. ABDOMEN LIVER: Unremarkable GALLBLADDER AND BILE DUCTS: Unremarkable. PANCREAS: Unremarkable. SPLEEN: Unremarkable. ADRENAL GLANDS: Unremarkable. KIDNEYS AND URETERS: r bilateral renal cysts. Nonobstructing calculi measuring up to 5 mm on the left and 4 mm on the right. PELVIS BLADDER: Unremarkable REPRODUCTIVE: Unremarkable. ABDOMEN & PELVIS STOMACH AND BOWEL: No evidence of bowel obstruction. Large amount stool throughout the colon. Within the rectum there is a large stool burden measuring up to 8.9 cm in transverse dimension with wall thi ckening circumferentially this is new finding wall thickening measuring up to 4 mm which is abnormal for such a dilated rectum. PERITONEUM/RETROPERITONEUM: No evidence of pneumoperitoneum or free fluid. VASCULATURE: Similar infrarenal abdominal aorta fusiform dilation just above the bifurcation measurin g up to 3.7 x 3.9 cm. MUSCULOSKELETAL: No acute osseous abnormalities. Moderate disc degeneration changes are present throu ghout the thoracolumbar spine. LYMPH NODES: No gross evidence for lymphadenopathy. SOFT TISSUE/ABDOMINAL WALL: Bilateral renal cysts. IMPRESSION: 1. Large rectal stool burden throughout the colon with large fecal ball in the rectum with evidence for stercoral colitis. Surgical consultation recommended. 2. Similar infrarenal abdominal aorta fusiform dilation just above the bifurcation measuring up to 3 .7 x 3.9 cm. Vascular surgery consultation recommended. 3. Moderate left pleural effusion with associated atelectasis. 4. Nodularity to the left pleural space which could represent metastatic deposit. Further evaluation if not already performed with more recent PET/CT may be of benefit. 5. Nonobstructing bilateral renal calculi. 6. Bilateral renal cysts.
[2023-04-27] MEDS ORDERED: MORPHINE SULFATE 4 MG/ML SYRINGE IV PRN (20:04)
[2023-04-27] MEDS ORDERED: NALOXONE 0.4 MG/ML 1 ML VIAL IV PRN (20:04)
[2023-04-27] MEDS ORDERED: ONDANSETRON 4 MG/2 ML VIAL IVP PRN (20:04)
[2023-04-27] MEDS: PIPERACILLIN-TAZOBACTAM 3.375 GM in SODIUM CHLORIDE 0.9% 100 ML IVPB SCH (20:24)
[2023-04-27] MEDS: SODIUM CHLORIDE 0.9% 1,000 ML IV SCH (20:25)
[2023-04-28] MEDS ORDERED: LORazepam 2 MG/ML INJ IV STA (04:25)
[2023-04-28] MEDS: PIPERACILLIN-TAZOBACTAM 3.375 GM in SODIUM CHLORIDE 0.9% 100 ML IVPB SCH ×2 (05:55→11:47)
[2023-04-28] MEDS ORDERED: HALOPERIDOL LACTATE 5 MG/ML 1 ML VIAL IVP PRN (06:45)
--- NOTE | 2023-04-28 07:20 | XR ---
EXAMINATION TYPE: XR chest 1V portable DATE OF EXAM: 04/28/2023 4:20 AM CLINICAL INDICATION:Male, 73 years old with history of Resp distress; H COMPARISON: Chest radiographs from 04/18/2023 TECHNIQUE: XR chest 1V portable Frontal view of the chest. FINDINGS: Lungs/Pleura: Scattered left-sided airspace opacities are similar. Right basilar airspace opacities a ppear increased from prior. No pneumothorax. Pulmonary vascularity: Unremarkable. Heart/mediastinum: Cardiomediastinal silhouette is unremarkable. Musculoskeletal: No acute osseous pathology. Multiple remote rib fractures.Right shoulder arthroplast y with hardware in stable position. IMPRESSION: 1. Similar left multifocal airspace opacities and slightly increased right basilar airspace opacitie s.
[2023-04-28 11:33] VITALS: BP 75/49; PULSE 122; RESP 30
[2023-04-28] MEDS: SODIUM CHLORIDE 0.9% 1,000 ML IV SCH (11:47)
--- NOTE | 2023-04-28 14:18 | P.GSCN ---
History of Present Illness Consult date: 04/28/23 History of present illness: CHIEF COMPLAINT: GI bleed HISTORY OF PRESENT ILLNESS: This is a 73-year-old male who presented to the hospital from [facility] with bright red blood per rectum. Patient does have a history of metastatic lung cancer. Apparently he was having abdominal pain. He does have a history of hemorrhoids and diverticulitis. Computed tomography scan abdomen and pelvis completed showing large rectal stool burden throughout the colon with large fecal ball the rectum with evidence for stercoral colitis. Patient did have a bowel movement in the ER. No blood was reported. Patient is requiring BiPAP and lethargic. He has been tachycardic and hypotensive. Patient is being evaluated by hospice. And likely transitioning to hospice this afternoon. PAST MEDICAL HISTORY: Metastatic lung cancer, COPD, GERD, hyperlipidemia, hypertension, PAST SURGICAL HISTORY: See below MEDICATIONS: See below ALLERGIES: See below SOCIAL HISTORY: No illicit drug use. Prior tobacco use REVIEW OF SYSTEMS: Unable to obtain. Patient lethargic. PHYSICAL EXAM: VITAL SIGNS: Reviewed GENERAL: On BiPAP. ABDOMEN: Soft. Nondistended. Nontender NEUROLOGIC: Lethargic LABORATORY DATA: WBC 17.5 Hgb 11.2 platelets 200 INR 1.2 Sodium 137 potassium 4.6 creatinine 0.41 Glucose 100 LFTs normal Stool for occult blood positive IMAGING: Computed tomography scan abdomen and pelvis large rectal stool burden throughout the colon with large fecal ball in the rectum with evidence for stercoral colitis. Similar infrarenal abdominal aorta fusiform dilation. Moderate left pleural effusion with associated atelectasis. Nodularity to the left pleural space could represent metastatic deposit. Nonobstructing bilateral renal calculi. Bilateral renal cysts. ASSESSMENT: 1. Large rectal stool burden throughout the colon with large fecal ball on the rectum with evidence of Stercoral colitis on CT PLAN: -Patient did have a bowel movement -No surgical intervention planned -He is being transitioned to hospice and comfort care Physician [employer] note has been reviewed by physician. Signing provider agrees with the documented findings, assessment, and plan of care. Past Medical History Past Medical History: Cancer, COPD, GERD/Reflux, Hyperlipidemia, Hypertension Additional Past Medical History / Comment(s): COPD, diverticulosis,tobacco use syndrome, lung cancer History of Any Multi-Drug Resistant Organisms: None Reported Past Surgical History: Orthopedic Surgery, Tonsillectomy Additional Past Surgical History / Comment(s): right ankle surgery, COLONOSCOPY Past Anesthesia/Blood Transfusion Reactions: No Reported Reaction Past Psychological History: No Psychological Hx Reported Smoking Status: Former smoker Past Alcohol Use History: None Reported Past Drug Use History: None Reported - Past Family History Mother Family Medical History: Coronary Artery Disease (CAD) Father Family Medical History: Cancer Additional Family Medical History / Comment(s): lymphoma Medications and Allergies Home Medications Medication Instructions Recorded Confirmed Type Simvastatin [Zocor] 40 mg PO HS@2100 08/24/16 04/28/23 History Fluticasone/Umeclidin/Vilanter 1 puff INHALATION RT-DAILY@1000 07/25/20 04/28/23 History [Trelegy Ellipta 100-62.5-25] Vit C/E/Zn/Coppr/Lutein/Zeaxan 1 tab PO DAILY@0800 07/25/20 04/28/23 History [Preservision Areds 2 Softgel] Krill/Om-3/Dha/Epa/Phospho/Ast 1 cap PO DAILY@0800 03/07/23 04/28/23 History [Krill Oil 500 mg Softgel] Turmeric Root Extract [Turmeric] 500 mg PO HS@2100 03/07/23 04/28/23 History ALPRAZolam [Xanax] 0.25 mg PO Q6H PRN #12 tab 04/21/23 04/28/23 Rx Acetaminophen Tab [Tylenol] 650 mg PO Q6HR PRN tab 04/21/23 04/28/23 Rx Calcium Carbonate [Tums] 1,000 mg PO QID PRN tab 04/21/23 04/28/23 Rx Albuterol Inhaler [Ventolin Hfa 2 puff INHALATION RT-Q4H PRN 04/27/23 04/28/23 History Inhaler] Albuterol Nebulized [Ventolin 2.5 mg INHALATION RT-Q4H PRN 04/27/23 04/28/23 History Nebulized] Albuterol Nebulized [Ventolin 2.5 mg INHALATION 04/27/23 04/28/23 History Nebulized] RT-QID@,,, Ascorbic Acid [Vitamin C] 1,000 mg PO DAILY@0800 04/27/23 04/28/23 History Aspirin 81 mg PO DAILY@0800 04/27/23 04/28/23 History Bisoprolol [Zebeta] 5 mg PO DAILY@0800 04/27/23 04/28/23 History Budesonide-Formot 160-4.5 Mcg 2 puff INHALATION RT-BID@0800,1700 04/27/23 04/28/23 History [Symbicort 160-4.5 Mcg Inhaler] Cholecalciferol [Vitamin D3 (25 25 mcg PO DAILY@0800 04/27/23 04/28/23 History Mcg = 1000 Iu)] Docusate [Colace] 100 mg PO BID@0800,1700 04/27/23 04/28/23 History Ensure Enlive 237 ml PO TID@08,12,04/27/23 04/28/23 History Escitalopram [Lexapro] 10 mg PO DAILY@0800 04/27/23 04/28/23 History Furosemide [Lasix] 40 mg PO DAILY@0800 04/27/23 04/28/23 History Heparin Sodium,Porcine (1 ml) 5,000 unit SQ TID@0600,1400,2200 04/27/23 04/28/23 History [Heparin Sodium] Magic Cup 1 dose PO BID-W/MEALS@12,17 04/27/23 04/28/23 History Magnesium Hydroxide [Milk of 7,200 mg PO DAILY PRN 04/27/23 04/28/23 History Magnesia Concentrate] Magnesium Oxide [Mag-Ox] 400 mg PO BID@0800,1700 04/27/23 04/28/23 History Midodrine [ProAmatine] 5 mg PO BID@0800,1700 04/27/23 04/28/23 History Na Phos,M-B/Na Phos,Di-Ba [Fleet 133 ml RECTAL DAILY PRN 04/27/23 04/28/23 History Adult] Pantoprazole [Protonix] 40 mg PO DAILY@0800 04/27/23 04/28/23 History Potassium Chloride ER [K-Dur 10] 10 meq PO DAILY@1700 04/27/23 04/28/23 History Zinc Sulfate [Orazinc] 220 mg PO DAILY@0800 04/27/23 04/28/23 History bisacodyL [Dulcolax] 10 mg RECTAL DAILY PRN 04/27/23 04/28/23 History droNABinol [Marinol] 2.5 mg PO DAILY@0800 04/27/23 04/28/23 History guaiFENesin [Mucinex] 600 mg PO BID@0800,2100 04/27/23 04/28/23 History predniSONE 10 mg PO DAILY@0800 04/27/23 04/28/23 History Allergies Allergy/AdvReac Type Severity Reaction Status Date / Time No Known Allergies Allergy Verified 04/28/23 13:05 Surgical - Exam Vital Signs Temp Pulse Resp BP Pulse Ox 97.4 F L 96 20 90/62 94 L 04/27/23 16:50 04/27/23 16:50 04/27/23 16:50 04/27/23 16:50 04/27/23 16:50 Results - Labs 04/27/23 17:28 04/27/23 17:28 Abnormal Lab Results - Last 24 Hours (Table) 04/27/23 04/27/23 04/27/23 Range/Units 17:28 17:28 17:28 WBC 17.5 H (3.8-10.6) k/uL RBC 3.66 L (4.30-5.90) m/uL Hgb 11.2 L (13.0-17.5) gm/dL Hct 33.3 L (39.0-53.0) % RDW 17.3 H (11.5-15.5) % Neutrophils # 16.1 H (1.3-7.7) k/uL Lymphocytes # 0.5 L (1.0-4.8) k/uL PT 12.7 H (9.0-12.0) sec INR 1.2 H (<1.2) Chloride 94 L (98-107) mmol/L Carbon Dioxide 35 H (22-30) mmol/L BUN 30 H (9-20) mg/dL Creatinine 0.41 L (0.66-1.25) mg/dL Glucose 100 H (74-99) mg/dL Total Protein 6.1 L (6.3-8.2) g/dL Albumin 2.8 L (3.5-5.0) g/dL Diabetes panel 04/27/23 Range/Units 17:28 Sodium 137 (137-145) mmol/L Potassium 4.6 (3.5-5.1) mmol/L Chloride 94 L (98-107) mmol/L Carbon Dioxide 35 H (22-30) mmol/L BUN 30 H (9-20) mg/dL Creatinine 0.41 L (0.66-1.25) mg/dL Glucose 100 H (74-99) mg/dL Calcium 8.7 (8.4-10.2) mg/dL AST 22 (17-59) U/L ALT 37 (4-49) U/L Alkaline Phosphatase 89 (38-126) U/L Total Protein 6.1 L (6.3-8.2) g/dL Albumin 2.8 L (3.5-5.0) g/dL Calcium panel 04/27/23 Range/Units 17:28 Calcium 8.7 (8.4-10.2) mg/dL Albumin 2.8 L (3.5-5.0) g/dL Pituitary panel 04/27/23 Range/Units 17:28 Sodium 137 (137-145) mmol/L Potassium 4.6 (3.5-5.1) mmol/L Chloride 94 L (98-107) mmol/L Carbon Dioxide 35 H (22-30) mmol/L BUN 30 H (9-20) mg/dL Creatinine 0.41 L (0.66-1.25) mg/dL Glucose 100 H (74-99) mg/dL Calcium 8.7 (8.4-10.2) mg/dL Adrenal panel 04/27/23 Range/Units 17:28 Sodium 137 (137-145) mmol/L Potassium 4.6 (3.5-5.1) mmol/L Chloride 94 L (98-107) mmol/L Carbon Dioxide 35 H (22-30) mmol/L BUN 30 H (9-20) mg/dL Creatinine 0.41 L (0.66-1.25) mg/dL Glucose 100 H (74-99) mg/dL Calcium 8.7 (8.4-10.2) mg/dL Total Bilirubin 0.6 (0.2-1.3) mg/dL AST 22 (17-59) U/L ALT 37 (4-49) U/L Alkaline Phosphatase 89 (38-126) U/L Total Protein 6.1 L (6.3-8.2) g/dL Albumin 2.8 L (3.5-5.0) g/dL
--- NOTE | 2023-04-28 15:20 | P.CONS ---
History of Present Illness - Reason for Consult Consult date: 04/28/23 NSCLC Requesting physician: Herson Ross Jr - Chief Complaint abdominal pain - History of Present Illness Mr. Rhodes is a 73-year-old gentleman with a past medical history significant for oxygen dependent COPD and recently diagnosed adenocarcinoma. He is a patient of Dr. Quintin Hays, first seen in consult in 02/2023. Of note patient was discharged last week after a prolonged admission for acute on chronic hypoxic respiratory failure secondary to COVID-19 and subsequent treatment of pneumonia. He was admitted on 03/07/2023, where CT angio noted no evidence of pulmonary embolism, but did note left pleural effusion and left superior lung mass. Diagnostic/therapeutic thoracentesis was performed with the left pleural fluid cytology being positive for adenocarcinoma. CT abdomen/pelvis revealed no evidence of distant metastasis with MRI of the brain on 03/14/2023 revealing no evidence of intracranial metastasis. Patient has been unable to have staging PET due to prolonged hospitalization admission for Covid infection. NGS showed no actionable mutation, PD-L1 was <1%, microsatellite instability was intermediate, TMB low. Onc recommendations for treatment would be dual IO therapy, but based on pt current PS, he was not a candidate for treatment at that time. Patient was discharged to rehab and was scheduled for clinic f/u to reassess patients condition and to discuss possible treatment recommendations, however pt and had verbalized they were unsure if they wanted to pursue any active treatment. Patient presented to the emergency room with complaints of abdominal pain and increasing confusion. Patient's states that over the last couple days the patient has been doing well in rehab. He was more alert and was able to sit up at the edge of bed. However yesterday patient began complaining of increasing abdominal pain and states he became more confused. Upon admission chest x- ray revealed similar left multifocal airspace opacities and slightly increased right basilar airspace opacities. CT abdomen pelvis revealed large rectal stool burden throughout the colon with large fecal ball in the rectum with evidence for stercoral colitis. Moderate left pleural effusion. Nodularity to the left pleural space. And similar infrarenal abdominal aorta fusiform dilation measuring 3.7 x 3.9 cm. Patient has been started on Zosyn. General surgery consulted. Stool occult positive. CBC revealed WBC 17.5, hemoglobin 11.2, plat elets 200,000. Patient has been placed on BiPAP, SPO2 96%. Patient is hypotensive. Afebrile Review of Systems 10 point ROS is negative except as stated in the HPI Past Medical History Past Medical History: Cancer, COPD, GERD/Reflux, Hyperlipidemia, Hypertension Additional Past Medical History / Comment(s): COPD, diverticulosis,tobacco use syndrome, lung cancer History of Any Multi-Drug Resistant Organisms: None Reported Past Surgical History: Orthopedic Surgery, Tonsillectomy Additional Past Surgical History / Comment(s): right ankle surgery, COLONOSCOPY Past Anesthesia/Blood Transfusion Reactions: No Reported Reaction Past Psychological History: No Psychological Hx Reported Smoking Status: Former smoker Past Alcohol Use History: None Reported Past Drug Use History: None Reported - Past Family History Mother Family Medical History: Coronary Artery Disease (CAD) Father Family Medical History: Cancer Additional Family Medical History / Comment(s): lymphoma Medications and Allergies Home Medications Medication Instructions Recorded Confirmed Type Simvastatin [Zocor] 40 mg PO HS@2100 08/24/16 04/28/23 History Fluticasone/Umeclidin/Vilanter 1 puff INHALATION RT-DAILY@1000 07/25/20 04/28/23 History [[place] Ellipta 100-62.5-25] Vit C/E/Zn/Coppr/Lutein/Zeaxan 1 tab PO DAILY@0800 07/25/20 04/28/23 History [Preservision Areds 2 Softgel] Krill/Om-3/Dha/Epa/Phospho/Ast 1 cap PO DAILY@0800 03/07/23 04/28/23 History [Krill Oil 500 mg Softgel] Turmeric Root Extract [Turmeric] 500 mg PO HS@2100 03/07/23 04/28/23 History ALPRAZolam [Xanax] 0.25 mg PO Q6H PRN #12 tab 04/21/23 04/28/23 Rx Acetaminophen Tab [Tylenol] 650 mg PO Q6HR PRN tab 04/21/23 04/28/23 Rx Calcium Carbonate [Tums] 1,000 mg PO QID PRN tab 04/21/23 04/28/23 Rx Albuterol Inhaler [Ventolin Hfa 2 puff INHALATION RT-Q4H PRN 04/27/23 04/28/23 History Inhaler] Albuterol Nebulized [Ventolin 2.5 mg INHALATION RT-Q4H PRN 04/27/23 04/28/23 History Nebulized] Albuterol Nebulized [Ventolin 2.5 mg INHALATION 04/27/23 04/28/23 History Nebulized] RT-QID@,,, Ascorbic Acid [Vitamin C] 1,000 mg PO DAILY@0800 04/27/23 04/28/23 History Aspirin 81 mg PO DAILY@0800 04/27/23 04/28/23 History Bisoprolol [Zebeta] 5 mg PO DAILY@0800 04/27/23 04/28/23 History Budesonide-Formot 160-4.5 Mcg 2 puff INHALATION RT-BID@0800,1700 04/27/23 04/28/23 History [Symbicort 160-4.5 Mcg Inhaler] Cholecalciferol [Vitamin D3 (25 25 mcg PO DAILY@0800 04/27/23 04/28/23 History Mcg = 1000 Iu)] Docusate [Colace] 100 mg PO BID@0800,1700 04/27/23 04/28/23 History Ensure Enlive 237 ml PO TID@08,12,04/27/23 04/28/23 History Escitalopram [Lexapro] 10 mg PO DAILY@0800 04/27/23 04/28/23 History Furosemide [Lasix] 40 mg PO DAILY@0800 04/27/23 04/28/23 History Heparin Sodium,Porcine (1 ml) 5,000 unit SQ TID@0600,1400,2200 04/27/23 04/28/23 History [Heparin Sodium] Magic Cup 1 dose PO BID-W/MEALS@12,17 04/27/23 04/28/23 History Magnesium Hydroxide [Milk of 7,200 mg PO DAILY PRN 04/27/23 04/28/23 History Magnesia Concentrate] Magnesium Oxide [Mag-Ox] 400 mg PO BID@0800,1700 04/27/23 04/28/23 History Midodrine [ProAmatine] 5 mg PO BID@0800,1700 04/27/23 04/28/23 History Na Phos,M-B/Na Phos,Di-Ba [Fleet 133 ml RECTAL DAILY PRN 04/27/23 04/28/23 History Adult] Pantoprazole [Protonix] 40 mg PO DAILY@0800 04/27/23 04/28/23 History Potassium Chloride ER [K-Dur 10] 10 meq PO DAILY@1700 04/27/23 04/28/23 History Zinc Sulfate [Orazinc] 220 mg PO DAILY@0800 04/27/23 04/28/23 History bisacodyL [Dulcolax] 10 mg RECTAL DAILY PRN 04/27/23 04/28/23 History droNABinol [Marinol] 2.5 mg PO DAILY@0800 04/27/23 04/28/23 History guaiFENesin [Mucinex] 600 mg PO BID@0800,2100 04/27/23 04/28/23 History predniSONE 10 mg PO DAILY@0800 04/27/23 04/28/23 History Allergies Allergy/AdvReac Type Severity Reaction Status Date / Time No Known Allergies Allergy Verified 04/28/23 13:05 Physical Exam Vitals: Vital Signs Temp Pulse Resp BP Pulse Ox FiO2 04/28/23 11:24 122 H 30 H 75/49 97 04/28/23 09:24 135 H 32 H 94/64 96 04/28/23 08:12 141 H 97/57 90 L 04/28/23 08:06 100 04/28/23 06:30 138 H 24 100/73 92 L 04/28/23 06:00 133 H 28 H 98/66 96 04/28/23 05:00 120 H 27 H 88/60 93 L 04/28/23 04:22 100 04/28/23 04:00 121 H 27 H 96/64 92 L 04/28/23 03:00 128 H 25 H 96/59 92 L 04/28/23 02:40 123 H 22 86/59 90 L 04/28/23 02:20 125 H 22 90/57 92 L 04/28/23 02:00 122 H 24 82/58 90 L 04/28/23 01:20 128 H 24 98/58 83 L 04/28/23 01:00 114 H 94/59 91 L 04/28/23 00:00 111 H 94/56 89 L 04/27/23 23:00 110 H 105/90 91 L 04/27/23 22:30 110 H 20 92/63 90 L 04/27/23 22:00 110 H 20 83/69 93 L 04/27/23 21:30 108 H 20 89/58 93 L 04/27/23 21:00 107 H 18 89/59 96 04/27/23 20:30 111 H 20 90/58 92 L 04/27/23 20:00 110 H 20 98/57 93 L 04/27/23 19:40 90 16 98/57 94 L 04/27/23 16:50 97.4 F L 96 20 90/62 94 L Intake and Output 04/27/23 04/28/23 04/28/23 22:59 06:59 14:59 Other: Weight 43.998 kg - Constitutional General appearance: mild distress, thin - Respiratory bipap in place, breathing mildly labored - Cardiovascular tachycardia - Integumentary Integumentary: no cyanotic, no jaundiced - Neurologic somnolent - Musculoskeletal Musculoskeletal: generalized weakness Results CBC & Chem 7: 04/27/23 17:28 04/27/23 17:28 Labs: Abnormal Lab Results - Last 24 Hours (Table) 04/27/23 04/27/23 04/27/23 Range/Units 17:28 17:28 17:28 WBC 17.5 H (3.8-10.6) k/uL RBC 3.66 L (4.30-5.90) m/uL Hgb 11.2 L (13.0-17.5) gm/dL Hct 33.3 L (39.0-53.0) % RDW 17.3 H (11.5-15.5) % Neutrophils # 16.1 H (1.3-7.7) k/uL Lymphocytes # 0.5 L (1.0-4.8) k/uL PT 12.7 H (9.0-12.0) sec INR 1.2 H (<1.2) Chloride 94 L (98-107) mmol/L Carbon Dioxide 35 H (22-30) mmol/L BUN 30 H (9-20) mg/dL Creatinine 0.41 L (0.66-1.25) mg/dL Glucose 100 H (74-99) mg/dL Total Protein 6.1 L (6.3-8.2) g/dL Albumin 2.8 L (3.5-5.0) g/dL Chest x-ray: report reviewed CT scan - abdomen: report reviewed CT scan - pelvis: report reviewed Assessment and Plan (1) Adenocarcinoma of lung Status: Acute Priority: High Code(s): C34.90 - MALIGNANT NEOPLASM OF UNSP PART OF UNSP BRONCHUS OR LUNG SNOMED Code(s): 538914802 (2) Stercoral colitis Status: Acute Priority: High Code(s): K52.89 - OTHER SPECIFIED NONINFECTIVE GASTROENTERITIS AND COLITIS SNOMED Code(s): 081708001 Plan: Stercoral colitis: -CT abdomen pelvis revealed large rectal stool burden throughout the colon with large fecal ball in the rectum with evidence for stercoral colitis. -General surgery consulted, no plan for surgical intervention at this time. Pt condition is poor, vitals unstable, not a good surgical candidate. This was expl ained to spouse by surgical team Stage IV NSCLC -02/2023 pleural fluid on the left + for adenocarcinoma -Unable to have staging PET Due to prolonged hospitalization admission for Covid infection. -NGS showed no actionable mutation, PD-L1 was <1%, microsatellite instability was intermediate, TMB low. -Onc recommendations for treatment would be dual IO therapy but, based on poor PS, he was not a candidate for treatment at that time. Patient was discharged to rehab and was scheduled for clinic f/u to reassess patients condition and to discuss possible treatment recommendations, however pt and had verbalized they were unsure if they wanted to pursue any active treatment. -Unfortunately patient's acute condition has worsened. Comfort care/hospice was discussed with spouse and family and that from an oncology standpoint this would be reasonable as he has had multiple prolonged admissions and despite care received and rehab he has not shown any significant improvement and would likely not be a candidate for any systemic treatment due to his advanced COPD and continued poor PS, as well as acute abdomen noted above. Family was agreeable and decided to pursue comfort care measures. Hospice has been consulted Dr attests: I have performed H&P and developed impression and plan of care for patient, discussed with dictator. I agree with dictated note, documented as a scribe
== END 2023-04-28 12:14 | disposition hospice, inpatient (51) | DRG 392 ==
LOC: EC 16:48 → 5NMEDONC 20:04 → 3SCARD 04-28 01:54 → 2SICU 04-28 06:15 → 5NMEDONC 04-28 09:23
PROVIDERS: ADMIT Family Medicine; ATTEND Family Medicine
PROC: 5A09357 Assistance with Respiratory Ventilation, Less than 24 Consecutive Hours, Continuous Positive Airway Pressure (ICD-10-PCS; principal; 2023-04-28)
DX: K52.89 Other specified noninfective gastroenteritis and colitis (principal); C79.9 Secondary malignant neoplasm of unspecified site; J96.11 Chronic respiratory failure with hypoxia; C34.90 Malignant neoplasm of unspecified part of unspecified bronchus or lung; K57.92 Diverticulitis of intestine, part unspecified, without perforation or abscess without bleeding; K62.5 Hemorrhage of anus and rectum; J44.9 Chronic obstructive pulmonary disease, unspecified; I95.9 Hypotension, unspecified; I10 Essential (primary) hypertension; E78.5 Hyperlipidemia, unspecified; K21.9 Gastro-esophageal reflux disease without esophagitis; R00.0 Tachycardia, unspecified; K64.9 Unspecified hemorrhoids; Z66 Do not resuscitate; Z86.16 Personal history of COVID-19; Z99.81 Dependence on supplemental oxygen; Z51.5 Encounter for palliative care; Z79.51 Long term (current) use of inhaled steroids; Z79.899 Other long term (current) drug therapy; Z79.82 Long term (current) use of aspirin; Z79.01 Long term (current) use of anticoagulants; Z87.891 Personal history of nicotine dependence; Z80.7 Family history of other malignant neoplasms of lymphoid, hematopoietic and related tissues
CPT/HCPCS: 36415; 36600; 51702; 71045; 74177; 80053; 82272; 85025; 85610; 85730; 86850; 86900; 86901; 93005; 94660; 96361; 96374; 96375; 99285

== ENCOUNTER 2023-04-28 12:02 | Inpatient (IN) | payer MEDICAID, MEDICARE, OTHER ==
[2023-04-28] MEDS ORDERED: ONDANSETRON 4 MG/2 ML VIAL IVP PRN (12:05)
[2023-04-28] MEDS ORDERED: GLYCOPYRROLATE 0.2 MG/ML 2 ML VIAL IVP PRN (12:05)
[2023-04-28] MEDS ORDERED: DRY MOUTH SPRAY 44.3 SPRAY/44.3 ML SPRAY MUCOUS MEM PRN (12:05)
[2023-04-28] MEDS ORDERED: MORPHINE SULFATE 4 MG/ML SYRINGE IV PRN (12:05)
[2023-04-28] MEDS ORDERED: ACETAMINOPHEN SUPPOSITORY 650 MG SUPP RECTAL PRN (12:05)
[2023-04-28] MEDS ORDERED: ATROPINE OPHTH SOLN 1% 5ML BTL SUBLINGUAL PRN (12:05)
[2023-04-28] MEDS: MORPHINE SULFATE (100 MG/2 ML) 100 MG in SODIUM CHLORIDE 0.9% 100 ML IV SCH (12:52)
[2023-04-28] MEDS ORDERED: SCOPOLAMINE 1 MG/72 HR PATCH TRANSDERM SCH (13:00)
[2023-04-28] MEDS: LORazepam 2 MG/ML INJ IV PRN (13:12)
[2023-04-28 14:12] VITALS: BP 111/61; PULSE 122; TEMP 96.7; BMI 14.0
--- NOTE | 2023-04-28 15:20 | P.CNPUL ---
History of Present Illness Consult date: 04/28/23 Requesting physician: Herson Ross Jr Reason for consult: dyspnea, other (Abdominal pain) Chief complaint: Bright red blood per rectum History of present illness: This is a 73-year-old white male, familiar to my service, patient was recently discharged from the hospital after a prolonged course of COVID-19 pneumonia, and failure to thrive. Patient is also known to have history of metastatic lung cancer, brought into the ER from [facility] with bright red blood per rectum and complaining of abdominal pain. Patient was extremely short of breath, and he was placed on BiPAP. He was also lethargic, tachycardic and hypotensive. CT of the abdomen and pelvis showed large rectal stool guarded and frontal: With large fecal ball and evidence of stercoral colitis. Not to mention the patient is also known to have COPD, hypertension, and recent prolonged hospital admission with COVID-19 pneumonia. Patient was seen in the ER, and again he was noted to be quite restless, agitated, and on BiPAP. CODE STATUS is already DO NOT RESUSCITATE, and after evaluating the patient, discussed his condition with the family at bedside, and family agreed to go ahead with comfort care measures and hospice. Patient was last discharged from the hospital on 04/21, at that time he had hypoxic respiratory failure, COPD, COVID-19 pneumonia, metastatic adenocarcinoma of the lung, and even his CODE STATUS was no code on the last admission. Labs today showed WBC count of 17.5 hemoglobin 11.2, basic metabolic profile was noted to be normal. And he had positive Hemoccult stools Review of Systems ROS unobtainable: due to mental status Past Medical History Past Medical History: Cancer, COPD, GERD/Reflux, Hyperlipidemia, Hypertension Additional Past Medical History / Comment(s): COPD, diverticulosis,tobacco use syndrome, lung cancer History of Any Multi-Drug Resistant Organisms: None Reported Past Surgical History: Orthopedic Surgery, Tonsillectomy Additional Past Surgical History / Comment(s): right ankle surgery, COLONOSCOPY Past Anesthesia/Blood Transfusion Reactions: No Reported Reaction Smoking Status: Never smoker - Past Family History Mother Family Medical History: Coronary Artery Disease (CAD) Father Family Medical History: Cancer Additional Family Medical History / Comment(s): lymphoma Medications and Allergies Home Medications Medication Instructions Recorded Confirmed Type Simvastatin [Zocor] 40 mg PO HS@2100 08/24/16 04/28/23 History Fluticasone/Umeclidin/Vilanter 1 puff INHALATION RT-DAILY@1000 07/25/20 04/28/23 History [Jacob Smart 100-62.5-25] Vit C/E/Zn/Coppr/Lutein/Zeaxan 1 tab PO DAILY@0800 07/25/20 04/28/23 History [Preservision Areds 2 Softgel] Krill/Om-3/Dha/Epa/Phospho/Ast 1 cap PO DAILY@0800 03/07/23 04/28/23 History [Krill Oil 500 mg Softgel] Turmeric Root Extract [Turmeric] 500 mg PO HS@209903/07/23 04/28/23 History ALPRAZolam [Xanax] 0.25 mg PO Q6H PRN #12 tab 04/21/23 04/28/23 Rx Acetaminophen Tab [Tylenol] 650 mg PO Q6HR PRN tab 04/21/23 04/28/23 Rx Calcium Carbonate [Tums] 1,000 mg PO QID PRN tab 04/21/23 04/28/23 Rx Albuterol Inhaler [Ventolin Hfa 2 puff INHALATION RT-Q4H PRN 04/27/23 04/28/23 History Inhaler] Albuterol Nebulized [Ventolin 2.5 mg INHALATION RT-Q4H PRN 04/27/23 04/28/23 History Nebulized] Albuterol Nebulized [Ventolin 2.5 mg INHALATION 04/27/23 04/28/23 History Nebulized] RT-QID@, Ascorbic Acid [Vitamin C] 1,000 mg PO DAILY@0800 04/27/23 04/28/23 History Aspirin 81 mg PO DAILY@0800 04/27/23 04/28/23 History Bisoprolol [Zebeta] 5 mg PO DAILY@0800 04/27/23 04/28/23 History Budesonide-Formot 160-4.5 Mcg 2 puff INHALATION RT-BID@0800,1700 04/27/23 04/28/23 History [Symbicort 160-4.5 Mcg Inhaler] Cholecalciferol [Vitamin D3 (25 25 mcg PO DAILY@0800 04/27/23 04/28/23 History Mcg = 1000 Iu)] Docusate [Colace] 100 mg PO BID@0800,1700 04/27/23 04/28/23 History Ensure Enlive 237 ml PO TID@08,12,17 04/27/23 04/28/23 History Escitalopram [Lexapro] 10 mg PO DAILY@0800 04/27/23 04/28/23 History Furosemide [Lasix] 40 mg PO DAILY@0800 04/27/23 04/28/23 History Heparin Sodium,Porcine (1 ml) 5,000 unit SQ TID@0600,1400,2200 04/27/23 04/28/23 History [Heparin Sodium] Magic Cup 1 dose PO BID-W/MEALS@,04/27/23 04/28/23 History Magnesium Hydroxide [Milk of 7,200 mg PO DAILY PRN 04/27/23 04/28/23 History Magnesia Concentrate] Magnesium Oxide [Mag-Ox] 400 mg PO BID@0800,1700 04/27/23 04/28/23 History Midodrine [ProAmatine] 5 mg PO BID@0800,1700 04/27/23 04/28/23 History Na Phos,M-B/Na Phos,Di-Ba [Fleet 133 ml RECTAL DAILY PRN 04/27/23 04/28/23 History Adult] Pantoprazole [Protonix] 40 mg PO DAILY@0800 04/27/23 04/28/23 History Potassium Chloride ER [K-Dur 10] 10 meq PO DAILY@1700 04/27/23 04/28/23 History Zinc Sulfate [Orazinc] 220 mg PO DAILY@0800 04/27/23 04/28/23 History bisacodyL [Dulcolax] 10 mg RECTAL DAILY PRN 04/27/23 04/28/23 History droNABinol [Marinol] 2.5 mg PO DAILY@0800 04/27/23 04/28/23 History guaiFENesin [Mucinex] 600 mg PO BID@0800,2100 04/27/23 04/28/23 History predniSONE 10 mg PO DAILY@0800 04/27/23 04/28/23 History Allergies Allergy/AdvReac Type Severity Reaction Status Date / Time No Known Allergies Allergy Verified 04/28/23 13:05 Physical Exam Vitals: Vital Signs Temp Pulse Pulse Resp BP BP Pulse Ox 04/28/23 13:50 36 H 04/28/23 13:40 96.7 F L 122 H 25 H 111/61 93 L 04/28/23 12:47 124 H 36 H 80/52 92 L 04/28/23 12:28 04/28/23 12:23 121 H 34 H 68/48 FiO2 04/28/23 13:50 04/28/23 13:40 04/28/23 12:47 04/28/23 12:28 100 04/28/23 12:23 Intake and Output 04/28/23 04/28/23 04/28/23 06:59 14:59 22:59 Intake Total 61.088 Balance 61.088 Intake: Intake, IV Titration 1.088 Amount Morphine Sulfate (100 mg/ 1.088 2 ml) 100 mg In Sodium Chloride 0.9% 100 ml @ 1 MG/HR 1.02 mls/hr IV . Q24H [facility] Rx#:[id number] Oral 60 Other: Voiding Method Indwelling Catheter Weight 43 kg Physical Exam: Revealed a 73-year-old white male restless agitated tachycardic, tachypneic, on BiPAP HEENT:[Neck is supple.] [No neck masses.] [No thyromegaly.] [No JVD.] Chest: [Crackles at the bases, no rhonchi no wheezes Cardiac Exam: Tachycardic. [Normal S1 and S2, no S3 gallop, no murmur.] Abdomen: Slightly distended abdomen, tenderness on palpation, positive guarding. Extremities: [No clubbing, no edema, no cyanosis.] Neurological Exam: Patient is restless, agitated, took 2 people to hold him down and calm him down, psychiatric: Could not be assessed. Psychiatric: Could not assess. Patient is extremely restless, is at bedside. Results - Diagnostic Findings Chest x-ray: image reviewed (Chest x-ray showed multifocal airspace disease with right basilar airspace opacity increased compared to baseline.) Additional studies: CT abdomen and pelvis as noted in HPI Assessment and Plan Assessment: Impression: Acute hypoxic respiratory failure Acute COPD exacerbation and acute bilateral pneumonia, healthcare acquired Suspect health care acquired pneumonia, and acute Abdominal pain with constipation, possible surgical abdomen Metastatic adenocarcinoma of left lung stage IV Failure to thrive Recent history of COVID-19 pneumonia Severe underlying COPD Benign essential hypertension Dyslipidemia Recommendation: Continue present supportive care measures Surgery to see the patient on consultation Discussed his overall condition with family at bedside while the patient was in the ER Family seems to be quite agreeable to proceed with hospice and comfort care measures. Will follow as needed. Time with Patient: Greater than 30
--- NOTE | 2023-04-28 16:01 | P.HPIM ---
History of Present Illness H&P Date: 04/28/23 Chief Complaint: Dyspnea, hypoxia, rectal bleeding History and physical and Discharge Summary: Patient is being transitioned to [facility] hospice. This is a 73-year-old gentleman with past medical history significant for metastatic adenocarcinoma lung cancer, recently discharged after a prolonged stay secondary to COVID-19 pneumonia, [facility] subacute rehab. Patient developed worsening shortness of breath, abdominal pain with rectal bleeding last night and returned to the hospital. Required BiPAP. Chest x-ray reported similar left multifocal airspace opacity's and slightly increased right basilar airspace opacities. On admission patient was tachycardic, hypotensive and lethargic. Abdomen and pelvis CT reported large rectal stool burden throughout the colon with large fecal ball in the rectum with evidence of stercoral colitis. Given the patient's continued decline, poor prognosis, family has decided to proceed with comfort care/ hospice. Review of Systems ROS unobtainable: due to mental status Past Medical History Past Medical History: Cancer, COPD, GERD/Reflux, Hyperlipidemia, Hypertension Additional Past Medical History / Comment(s): COPD, diverticulosis,tobacco use syndrome, lung cancer History of Any Multi-Drug Resistant Organisms: None Reported Past Surgical History: Orthopedic Surgery, Tonsillectomy Additional Past Surgical History / Comment(s): right ankle surgery, COLONOSCOPY Past Anesthesia/Blood Transfusion Reactions: No Reported Reaction Smoking Status: Never smoker - Past Family History Mother Family Medical History: Coronary Artery Disease (CAD) Father Family Medical History: Cancer Additional Family Medical History / Comment(s): lymphoma Medications and Allergies Home Medications Medication Instructions Recorded Confirmed Type Simvastatin [Zocor] 40 mg PO HS@2100 08/24/16 04/28/23 History Fluticasone/Umeclidin/Vilanter 1 puff INHALATION RT-DAILY@1000 07/25/20 04/28/23 History [[place]ared Ellipta 100-62.5-25] Vit C/E/Zn/Coppr/Lutein/Zeaxan 1 tab PO DAILY@0800 07/25/20 04/28/23 History [Preservision Areds 2 Softgel] Krill/Om-3/Dha/Epa/Phospho/Ast 1 cap PO DAILY@0800 03/07/23 04/28/23 History [Krill Oil 500 mg Softgel] Turmeric Root Extract [Turmeric] 500 mg PO HS@2100 03/07/23 04/28/23 History ALPRAZolam [Xanax] 0.25 mg PO Q6H PRN #12 tab 04/21/23 04/28/23 Rx Acetaminophen Tab [Tylenol] 650 mg PO Q6HR PRN tab 04/21/23 04/28/23 Rx Calcium Carbonate [Tums] 1,000 mg PO QID PRN tab 04/21/23 04/28/23 Rx Albuterol Inhaler [Ventolin Hfa 2 puff INHALATION RT-Q4H PRN 04/27/23 04/28/23 History Inhaler] Albuterol Nebulized [Ventolin 2.5 mg INHALATION RT-Q4H PRN 04/27/23 04/28/23 History Nebulized] Albuterol Nebulized [Ventolin 2.5 mg INHALATION 04/27/23 04/28/23 History Nebulized] RT-QID@,,, Ascorbic Acid [Vitamin C] 1,000 mg PO DAILY@0800 04/27/23 04/28/23 History Aspirin 81 mg PO DAILY@0800 04/27/23 04/28/23 History Bisoprolol [Zebeta] 5 mg PO DAILY@0800 04/27/23 04/28/23 History Budesonide-Formot 160-4.5 Mcg 2 puff INHALATION RT-BID@0800,1700 04/27/23 04/28/23 History [Symbicort 160-4.5 Mcg Inhaler] Cholecalciferol [Vitamin D3 (25 25 mcg PO DAILY@0800 04/27/23 04/28/23 History Mcg = 1000 Iu)] Docusate [Colace] 100 mg PO BID@0800,1700 04/27/23 04/28/23 History Ensure Enlive 237 ml PO TID@,,17 04/27/23 04/28/23 History Escitalopram [Lexapro] 10 mg PO DAILY@0800 04/27/23 04/28/23 History Furosemide [Lasix] 40 mg PO DAILY@0800 04/27/23 04/28/23 History Heparin Sodium,Porcine (1 ml) 5,000 unit SQ TID@0600,1400,2200 04/27/23 04/28/23 History [Heparin Sodium] Magic Cup 1 dose PO BID-W/MEALS@12,17 04/27/23 04/28/23 History Magnesium Hydroxide [Milk of 7,200 mg PO DAILY PRN 04/27/23 04/28/23 History Magnesia Concentrate] Magnesium Oxide [Mag-Ox] 400 mg PO BID@0800,1700 04/27/23 04/28/23 History Midodrine [ProAmatine] 5 mg PO BID@0800,1700 04/27/23 04/28/23 History Na Phos,M-B/Na Phos,Di-Ba [Fleet 133 ml RECTAL DAILY PRN 04/27/23 04/28/23 History Adult] Pantoprazole [Protonix] 40 mg PO DAILY@0800 04/27/23 04/28/23 History Potassium Chloride ER [K-Dur 10] 10 meq PO DAILY@1700 04/27/23 04/28/23 History Zinc Sulfate [Orazinc] 220 mg PO DAILY@0800 04/27/23 04/28/23 History bisacodyL [Dulcolax] 10 mg RECTAL DAILY PRN 04/27/23 04/28/23 History droNABinol [Marinol] 2.5 mg PO DAILY@0800 04/27/23 04/28/23 History guaiFENesin [Mucinex] 600 mg PO BID@0800,2100 04/27/23 04/28/23 History predniSONE 10 mg PO DAILY@0800 04/27/23 04/28/23 History Allergies Allergy/AdvReac Type Severity Reaction Status Date / Time No Known Allergies Allergy Verified 04/28/23 13:05 Physical Exam Vitals: Vital Signs Temp Pulse Pulse Resp BP BP Pulse Ox 04/28/23 15:16 04/28/23 13:50 36 H 04/28/23 13:40 96.7 F L 122 H 25 H 111/61 93 L 04/28/23 12:47 124 H 36 H 80/52 92 L 04/28/23 12:28 04/28/23 12:23 121 H 34 H 68/48 FiO2 04/28/23 15:16 100 04/28/23 13:50 04/28/23 13:40 04/28/23 12:47 04/28/23 12:28 100 04/28/23 12:23 Intake and Output 04/28/23 04/28/23 04/28/23 06:59 14:59 22:59 Intake Total 61.088 Balance 61.088 Intake: Intake, IV Titration 1.088 Amount Morphine Sulfate (100 mg/ 1.088 2 ml) 100 mg In Sodium Chloride 0.9% 100 ml @ 1 MG/HR 1.02 mls/hr IV . Q24H [facility] Rx#:[id number] Oral 60 Other: Voiding Method Indwelling Catheter Weight 43 kg Physical Exam: GENERAL:Restless 73-year-old white male, agitated, on BiPAP HEENT:Neck is supple, no JVD.] Chest: Labored, tachypneic, bibasilar crackles. Cardiac Exam: Tachycardic. [Normal S1 and S2, no S3 gallop, no murmur.] Abdomen: Slightly distended abdomen, tenderness on palpation, positive guarding. Extremities: [No clubbing, no edema, no cyanosis.] Neurological Exam: Unable to assess. Assessment and Plan Assessment: Acute hypoxic respiratory failure Acute COPD exacerbation and acute bilateral pneumonia, suspect healthcare acquired Abdominal pain . CT reporting large rectal stool burden throughout the colon with large fecal ball on the rectum with evidence of Stercoral colitis. Metastatic adenocarcinoma of left lung stage IV Recent COVID-19 pneumonia Severe underlying COPD Benign essential hypertension Dyslipidemia No code, no CPR, no intubation Hospice Plan: Continue on current medication regime ,monitoring and symptomatic treatment. Evaluated by general surgery with no surgical intervention planned. Prognosis poor.Family has chosen to proceed with comfort care and hospice. Patient is being transitioned over to [facility] hospice. The impression and plan of care has been dictated as directed. : I performed a history and examination of this patient, discussed the same with the dictator. I agree with the dictator's note ,documented as a scribe. Any additional findings or plans will be noted.
[2023-04-29 01:39] VITALS: RESP 6
[2023-04-29] MEDS: LORazepam 2 MG/ML INJ IV PRN (04:12)
[2023-04-29] MEDS: MORPHINE SULFATE (100 MG/2 ML) 100 MG in SODIUM CHLORIDE 0.9% 100 ML IV SCH (06:15)
== END 2023-04-29 08:30 | disposition expired | DRG 951 ==
LOC: EC 12:02 → 1SOBS 13:17
PROVIDERS: ADMIT Family Medicine; ATTEND Family Medicine
DX: Z51.5 Encounter for palliative care (principal); J96.01 Acute respiratory failure with hypoxia; J18.9 Pneumonia, unspecified organism; C34.90 Malignant neoplasm of unspecified part of unspecified bronchus or lung; J44.0 Chronic obstructive pulmonary disease with (acute) lower respiratory infection; C34.92 Malignant neoplasm of unspecified part of left bronchus or lung; Z68.1 Body mass index [BMI] 19.9 or less, adult; K52.89 Other specified noninfective gastroenteritis and colitis; E78.5 Hyperlipidemia, unspecified; I10 Essential (primary) hypertension; K59.00 Constipation, unspecified; R62.7 Adult failure to thrive; Z66 Do not resuscitate; Z79.51 Long term (current) use of inhaled steroids; Z79.82 Long term (current) use of aspirin; Z79.899 Other long term (current) drug therapy; Z80.7 Family history of other malignant neoplasms of lymphoid, hematopoietic and related tissues; Z82.49 Family history of ischemic heart disease and other diseases of the circulatory system; Z85.118 Personal history of other malignant neoplasm of bronchus and lung; Z86.16 Personal history of COVID-19; Z87.01 Personal history of pneumonia (recurrent)